=== PATIENT | female | born 1960 | race Caucasian/White ===

== ENCOUNTER 2023-10-26 06:35 | Inpatient (IN) ==
--- OUTSIDE RECORDS SUMMARY | 2023-10-26 06:41 | External Medical Summary ---
Author Name Unknown Address Unknown Organization [id number]:[facility] [place] [address] [place] [address] Laboratory Report Ordering Provider Test Date Status KELLY FERRIS 05/19/2023 07:25:00 Final Observation Date Value Abnormality Reference (Units ) Status BUN 05/19/2023 07:25:00 14 6-20 (mg/dL) Final Creatinine 05/19/2023 07:25:00 0.8 0.5-1.0 (mg/dL) Final Glomerular filtration rate/1.73 sq M.predicted [Volume Rate/Area] in Serum, Plasma or Blood by Creatinine-based formula (CKD-EPI) 05/19/2023 07:25:00 >90 >=60 (mL/min) Final eGFR is calculated based on the CKD-EPI 2020 equation SODIUM 05/19/2023 07:25:00 135 135-146 (m mol/L) Final Potassium 05/19/2023 07:25:00 3.6 3.5-5.1 (m mol/L) Final Cl 05/19/2023 07:25:00 103 98-107 (mm ol/L) Final CO2 05/19/2023 07:25:00 24 22-32 (mmo l/L) Final Anion gap 05/19/2023 07:25:00 8 7-15 (mmol /L) Final Glucose 05/19/2023 07:25:00 100 70-120 (mg /dL) Final Calcium 05/19/2023 07:25:00 9.0 8.4-10.2 ( mg/dL) Final Performing Location LABORATORY [facility] - [address] [place] [id number]
--- OUTSIDE RECORDS SUMMARY | 2023-10-26 06:41 | External Medical Summary ---
Author Name Unknown Address Unknown Organization [id number]:[facility] [place] [address] [facility] [address] Laboratory Report Ordering Provider Test Date Status KELLY FERRIS 05/20/2023 05:27:00 Final Observation Date Value Abnormality Reference (Units ) Status WBC, Total 05/20/2023 05:27:00 3.83 Below low normal 4.00-10.80 (K/uL) Final RBC 05/20/2023 05:27:00 3.76 3.85-5.15 (M/uL) Final Hemoglobin 05/20/2023 05:27:00 11.6 Below low normal 12.0-15.3 (g/dL) Final HCT 05/20/2023 05:27:00 34.9 Below low normal 36.0-45.2 (%) Final MCV 05/20/2023 05:27:00 92.8 81.5-97.5 (fL) Final MCH 05/20/2023 05:27:00 30.9 27.0-34.0 (pg) Final MCHC 05/20/2023 05:27:00 33.2 32.0-36.0 (g/dL) Final RDW 05/20/2023 05:27:00 13.5 11.5-15.5 (%) Final Platelets 05/20/2023 05:27:00 114 Below low normal 140-400 (K/uL) Final MPV 05/20/2023 05:27:00 9.4 6.6-11.1 (fL) Final Nucleated erythrocytes/100 leukocytes [Ratio] in Blood by Automated count 05/20/2023 05:27:00 0 <=0 (/100 WBCs) Final Performing Location LABORATORY C - [address] [place] [address]
--- OUTSIDE RECORDS SUMMARY | 2023-10-26 06:41 | External Medical Summary | Summary of Care ---
Author Name Unknown Organization [facility] Address [address] [place] [address] Phone [phone] Care Team Providers Care Component Assembler Supervisor Name Role Phone Caitie Aden Primary Care Provider [phone] Reason for Visit * Reason Comments Follow Up Encounter Details Date Type Department Care Team (Late st Contact Info) Description 10/09/2023 10:15 AM EDT Office Visit General Surgery, [place] [address] [place] [address] Horace Elder MD [address] [place] [address] Post-operative state* Allergies Active Allergy Reactions Criticality Noted Date Comments Acetaminophen Fever Extra Strength causes fever Moxifloxacin Hcl In Nacl Other (Please comment) 12/22/2009 Sunburn like rash Diphenhydramine-Zinc Acetate 08/23/2010 Skin like crowded with bugs Cefuroxime Axetil 09/15/2009 Does not remember, Ceftin Mesalamine 03/17/2018 Paroxetine 06/14/2010 Caused ringing in her ears Penicillins Rash Sertraline Hcl 08/23/2010 Intensified ringing in her ears Sulfa Antibiotics Severe Headache Sympathomimetics Antihistamines--j ittery Vancomycin 03/17/2018 Eye Lubricant 07/16/2022 Red eyes documented as of this encounter (statuses as of 10/25/2023) Medications Medication Sig Dispensed Refills Start Date End Date Status KLONOPIN 0.5 MG PO TABSIndications:Panic disorder one bid 60 5 03/25/2005 Active Additional Information Patient taking differently: 0.5 mgOralTID PRN, Anxiety, 1 tab AM, 1/2 tab afternoon, 1/2 tab HS, Informant: Patient, Reported on 05/13/2023 omeprazole (PRILOSEC) 20 MG CPDR 1 Capsule in the morning. Once-twice daily if needed . Active potassium citrate ER (UROCIT-K) 10 MEQ (1080 MG) TBCR Take by mouth 2 times a day. 30meq every morning & 20meq with dinner 1 06/29/2014 Active Carboxymethylcell-Hyp romellose 0.25-0.3 % Ophthalmic Gel Instill 1 Drop into both eyes as needed for Dry eyes (HS). Active Tobramycin-Dexamethas one (TOBRADEX ST) 0.3-0.05 % SUSP Instill into eye. Ac tive Cyanocobalamin 2000 MCG Oral Tablet Take by mouth daily. Active levothyroxine (LEVOXYL) 25 MCG Tablet Take 1 Tablet by mouth daily first thing in the morning. Active predniSONE (DELTASONE) 1 MG Tablet Take 2 Tablets by mouth in the morning. Active Docusate Sodium 100 MG Oral Capsule Take 2 Capsules by mouth in the morning. Active Acetaminophen 325 MG Oral Tablet (Tylenol) Take 2 Tablets by mouth every 6 hours as needed for Fever >38C(100.5F), Pain, Mild or Pain, Moderate. 30 Tablet 07/27/2022 Active Cranberry 250 MG Oral Tablet Take 1 Tablet by mouth in the morning. Active Vitamin D 50 MCG (2000 UT) Oral Capsule Take 2,000 Units by mouth in the morning. Active Ondansetron 4 MG Oral Tablet Disintegrating (Zofran) Place 1 Tablet on tongue every 6 hours as needed for Nausea or Vomiting. Let tablet dissolve on tongue. 20 Tablet 05/20/2023 Active Additional Information Patient not taking.Reported on 06/05/2023 Sennosides 8.6 MG Oral Tablet (Senokot) Take 2 Tablets by mouth daily as needed for Constipation. 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 Mammographic microcalcification 05/11/2003 Medullary sponge kidney 11/10/2002 Calculus of kidney 11/25/2001 Panic disorder 10/06/2001 Loss of weight 10/06/2001 Neutropenia 04/17/2001 Overview: ICD-10 update of inactive term Secondary thrombocytopenia 04/17/2001 Overview: ICD-10 update of inactive term Other specified visual disturbances 04/17/2001 Systemic lupus erythematosus 03/27/2001 Sicca syndrome LUMBAGO ACQUIRED HYPOTHYROID NEC documented as of this encounter (statuses as of 10/25/2023) Resolved Problems Problem Noted Date Diagnosed Date Resolved Date Anal fissure 02/08/2019 02/08/2019 documented as of this encounter (statuses as of 10/25/2023) Immunizations No known immunizationsdocumented as of this encounter Social History Tobacco Use Types Packs/Day Years Used Date Smoking Tobacco: Former Cigarettes 0.8 2 0 08/24/1979 - 08/23/1981 Smokeless Tobacco: Never Tobacco Cessation:Counseling Given: Not Answered Comments:after smoking x 2 yrs. Alcohol Use Standard Drinks/Week Comments No 0 (1 standard drink = 0.6 oz pur e alcohol) Sex and Gender Information Value Date Recorded Sex Assigned at Not on file Gender Identity Not on file Sexual Orientation Not on file Job Start Date Occupation Industry Not on file Not on file Not on file documented as of this encounter Last Filed Vital Signs Vital Sign Reading Time Taken Comments Blood Pressure 107/54 10/09/2023 10:21 AM EDT Pulse 76 10/09/2023 10:21 AM EDT Temperature 36.7 C (98 F) 10/09/2023 10: 21 AM EDT Respiratory Rate 20 10/09/2023 10:2 1 AM EDT Oxygen Saturation 98% 10/09/2023 10: 21 AM EDT Inhaled Oxygen Concentration - - Weight 64.8 kg (142 lb 12.8 oz) 024 10:21 AM EDT Height 180.3 cm (5' 11") 10/09/2023 10: 21 AM EDT Body Mass Index 19.92 10/09/2023 10:21 AM EDT documented in this encounter Functional Status Functional Status Response Date of Assess ment Are you deaf or do you have serious difficulty h earing? No 05/15/2023 Are you blind or do you have serious difficulty seeing, even when wearing glasses? No 05/15/2023 Do you have serious difficul ty walking or climbing stairs? (5 years old or older) No 05/15/2023 Do you have difficulty dress ing or bathing? (5 years old or older) No 05/15/2023 Because of a physical, menta l, or emotional condition, do you have difficulty doing errands alone such as visiting a doctor s office or shopping? (15 years old or older) No 05/15/19 Cognitive Status Response Date of Assessm ent Because of a physical, menta l, or emotional condition, do you have serious difficulty concentrating, remembering, or making decisions? (5 years old or older) No 05/15/2023 documented as of this encounter Progress Notes * Horace Elder MD - 10/25/2023 5:00 PM EDT Mrs. Lantigua is following up after a robotic sugarbaker repair of a parastomal hernia. She has some pain in her abdomen at times. Her ostomy is functioning. She will note parag occasional constipation. She denies any problems with pouching. She remains active. She is watching how much she lifts. VSS ABD- soft there is a LLQ ostomy no hernias noted. PLAN- will follow up in 4 months in clinic. Horace Elder MD documented in this encounter Plan of Treatment Upcoming Encounters Date Type Department Care Team (Late st Contact Info) Description 02/06/2024 10:00 AM EST Telemedicine General Surgery, [address] [phone] Horace Elder MD [address] [place] [address] Health Maintenance Due Date Last Done Comments Lipid Panel 1961 Depression Screening 1973 HIV Screening 1976 Hepatitis C Screening 11/25/1979 DTaP,Tdap,and Td Vaccines (1 - Tdap) 1980 HPV/Co-Test 11/25/1991 TSH 05/10/2004 05/11/2003, 08/2002, 03/18/2001, Additional history exists Mammogram 04/04/2006 04/04/2005, 03/04, 03/25/2005, Additional history exists Cologuard 2006 Fecal Occult Blood Test 2006 Sigmoidoscopy 2006 Cervical Cancer Screening 09/01/2007 Pap Smear 09/01/2007 08/31/2004, 03/2004, 09/07/2003, Additional history exists Zoster Vaccines (1 of 2) 11/25/2011 COVID-19 Vaccine ( - season) 2022 Influenza Vaccine (FLU shot) (#1) 2023 Colonoscopy 09/14/2030 09/14/2020, 08/31, 07/12/2019, Additional history exists Colorectal Cancer Screening 09/14/2030 HPV (Gardasil) Vaccine Aged Out No lo nger eligible based on patient's age to complete this topic Hepatitis B Vaccine Aged Out No longe r eligible based on patient's age to complete this topic MENINGOCOCCAL (MENACTRA/MENVEO) Aged Out No longer eligible based on patient's age to complete this topic Pneumococcal Vaccine: Pediatrics (0 to 5 Years) and At-Risk Patients (6 to 64 Years) Aged Out No longer eligible based on patient's age to complete this topic documented as of this encounter Medical Devices Implanted Type Area Quality Assurance Coach Device Identifier Shelf Expiration Date Model / Serial / Lot Patch Tissue 10x15 [id number] - [id number] Implanted:Qty : 1 on 05/15/2023 [place] [facility] [place] Abdomen [employer] [id number] 10/06/2027 [id number] / [id number] / [id number] Mesh Capsure Fixation 30 - [id number] Implanted:Qty : 1 on 05/15/2023 by Horace Elder [place] [facility] [place] BARD : DAVOL 05/28/2024 [id number] / / [id number] documented as of this encounter Visit Diagnoses Diagnosis Post-operative state- Primary Other postprocedural status documented in this encounter Advance Directives * Full Code (Latest Code Status on File) Date Activated Date Inactivated Comments 05/15/2023 5:31 PM 05/20/2023 7:08 PM Question Answer Comments Discussion of Advance Directives occurred with: Patient * Full Code Date Activated Date Inactivated Comments 05/15/2023 12:40 PM 05/15/2023 5:31 PM This order reflects the patients wishes and were consensually agreed upon. Question Answer Comments Discussion of Advance Directives occurred with: Patient Does the patient have a Living Will? No Does the patient have Health Care Power of Attor cony? No * Full Code Date Activated Date Inactivated Comments 12/13/2022 11:07 AM 12/14/2022 9:18 PM This orde r reflects the patients wishes and were consensually agreed upon. Question Answer Comments Discussion of Advance Directives occurred with: Patient * Full Code Date Activated Date Inactivated Comments 07/25/2022 2:31 PM 07/27/2022 4:36 PM This order r eflects the patients wishes and were consensually agreed upon. Question Answer Comments Discussion of Advance Directives occurred with: Patient Does the patient have a Living Will? No Does the patient have Health Care Power of Attor cony? No * Full Code Date Activated Date Inactivated Comments 01/15/2022 12:37 PM 01/15/2022 7:56 PM This orde r reflects the patients wishes and were consensually agreed upon. Question Answer Comments Discussion of Advance Direct karina occurred with: Not Discussed due to patient's condition Care Teams Component Assembler Supervisor Relationship Specialty Start Date End Date Caitie Aden DO [address] [place] [id number] PCP - General 09/12/09 documented as of this encounter
--- OUTSIDE RECORDS SUMMARY | 2023-10-26 06:41 | External Medical Summary | Summary of Care ---
Author Name Unknown Organization [facility] Address [address] [place] [address] Phone [phone] Care Team Providers Care C 13 Catapult Operator Name Role Phone Caitie Aden Primary Care Provider [phone] Reason for Visit * Reason Comments Post-Op Encounter Details Date Type Department Care Team (Late st Contact Info) Description 06/05/2023 11:00 AM EDT Office Visit General Surgery, [place] [address] [place] [address] Horace Elder MD [address] [place] [address] Post-operative state* Allergies Active Allergy [...] as of this encounter (statuses as of 06/05/2023) Medications Medication Sig Dispensed Refills Start Date End Date Status KLONOPIN 0.5 MG PO TABSIndications:Felipe c disorder one bid 60 5 03/25/2005 Active Additional Information Patient taking differently: 0.5 mgOralTID PRN, Anxiety, 1 tab AM, 1/2 tab afternoon, 1/2 tab HS, Informant: Patient, Reported on 05/13/2023 omeprazole (PRILOSEC) 20 MG CPDR 1 Capsule in the morning. Once-twice daily if needed . 0 Active potassium citrate ER (UROCIT-K) 10 MEQ (1080 MG) TBCR Take by mouth 2 times a day. 30meq every morning & 20meq with dinner 1 06/29/2014 Active Carboxymethylcell-Hy promellose 0.25-0.3 % Ophthalmic Gel Instill 1 Drop into both eyes as needed for Dry eyes (HS). 0 Active Tobramycin-Dexametha sone (TOBRADEX ST) 0.3-0.05 % SUSP Instill into eye. 0 Ac tive Cyanocobalamin 2000 MCG Oral Tablet Take by mouth daily. 0 Active levothyroxine (LEVOXYL) 25 MCG Tablet Take 1 Tablet by mouth daily first thing in the morning. 0 Active predniSONE (DELTASONE) 1 MG Tablet Take 2 Tablets by mouth in the morning. 0 Active Docusate Sodium 100 MG Oral Capsule Take 2 Capsules by mouth in the morning. 0 Active Acetaminophen 325 MG Oral Tablet (Tylenol) Take 2 Tablets by mouth every 6 hours as needed for Fever >38C(100.5F), Pain, Mild or Pain, Moderate. 30 Tablet 0 07/27/2022 Active Cranberry 250 MG Oral Tablet Take 1 Tablet by mouth in the morning. 0 Active Vitamin D 50 MCG (2000 UT) Oral Capsule Take 2,000 Units by mouth in the morning. 0 Active Ondansetron 4 MG Oral Tablet Disintegrating (Zofran) Place 1 Tablet on tongue every 6 hours as needed for Nausea or Vomiting. Let tablet dissolve on tongue. 20 Tablet 0 05/20/2023 Active Additional Information Patient not taking.Reported on 06/05/2023 Sennosides 8.6 MG Oral Tablet (Senokot) Take 2 Tablets by mouth daily as needed for Constipation. 30 Tablet 0 05/20/2023 Active Additional Information Patient not taking.Reported on 06/05/2023 oxyCODONE HCl 10 MG Oral Tablet (Roxicodone) Take 1 Tablet by mouth every 6 hours as needed for severe pain 16 Tablet 0 05/20/2023 Active Ciprofloxacin HCl 500 MG Oral Tablet (Cipro) Take 1 Tablet by mouth two times per day (morning & before bedtime). 58 Tablet 0 05/20/2023 06/18/2023 Active Additional Information Patient not taking.Reported on 06/05/2023 documented as of this encounter (statuses as of 06/05/2023) Active Problems Problem Noted Date Diagnosed Date [...] as of this encounter (statuses as of 06/05/2023) Resolved Problems Problem Noted Date Diagnosed Date Resolved Date Anal fissure 02/08/2019 02/08/2019 documented as of this encounter (statuses as of 06/05/2023) Immunizations No known immunizationsdocumented as of this encounter Social History Tobacco Use Types Packs/Day Years Used Date Smoking Tobacco: Former Cigarettes 0.8 2 0 08/24/1979 - 08/23/1981 Smokeless Tobacco: Never Comments:after smoking x 2 y rs. Alcohol Use Standard Drinks/Week Comments No 0 [...] Sign Reading Time Taken Comments Blood Pressure 99/51 06/05/2023 10:54 AM EDT Pulse 97 06/05/2023 10:54 AM EDT Temperature 36.8 C (98.2 F) 06/05/2023 10:54 AM E DT Respiratory Rate - - Oxygen Saturation 99% 06/05/2023 10:54 AM EDT Inhaled Oxygen Concentration - - Weight 62 kg (136 lb 9.6 oz) 06/05/2023 10:54 AM EDT Height 180.3 cm (5' 11") 06/05/2023 10:54 AM EDT Body Mass Index 19.05 06/05/2023 10:54 AM EDT documented in this encounter Functional [...] Progress Notes * Horace Elder MD - 06/05/2023 6:48 PM EDT Gilma Lantigua is a 62 year old female who recently had a robotic Sugarbaker repair of a parastomalhernia. Her ostomy is functioning well. She has some pain at her left abdomen. She is tolerating a diet. No nausea. . Physical Examination: incisions are healing well. No erythema. Ostomy is pink and functioning well. Impression: s/p robotic Sugarbaker repair. Plan: will follow up in 4 weeks via a phone call. Horace Elder MD 06/05/2023 6:49 PM documented in this encounter Plan of Treatment Upcoming Encounters Date Type Department Care Team (Late st Contact Info) Description 07/04/2023 9:00 AM EDT Telemedicine General Surgery, [place] [address] [place] [address] Horace Elder MD [address] [place] [address] Health Maintenance Due Date Last Done Comments [...] of 2) 11/25/2011 COVID-19 Vaccine ( - 2022- season) 2022 Influenza Vaccine (FLU shot) (Season Ended) 2023 Colonoscopy 09/14/2030 09/14/2020, 08/31, 07/12/2019, Additional history exists Colorectal Cancer Screening 09/14/2030 GARDASIL-HPV IMMUNIZATION SERIES Aged Out No longer eligible based on patient's age to complete this topic Hepatitis B Aged Out No longer eligi ble based on patient's age to complete this topic MENINGOCOCCAL (MENACTRA/MENVEO) Aged Out No longer eligible based on patient's age to complete this topic Pneumococcal Vaccine: Pediatrics (0 to 5 Years) and At-Risk Patients (6 to 64 Years) Aged Out No longer eligible based on patient's age to complete this topic documented as of this encounter Medical Devices Implanted Type Area Remedial Project Manager Device Identifier Shelf Expiration Date Model / Serial / Lot Patch Tissue 10x15 [id number] - [id number] Implanted:Qty : 1 on 05/15/2023 by Horace Elder MD at [place] [facility] [place] N/A: Abdomen [employer] [id number] 10/06/2027 [id number] / [id number] / [id number] Mesh Capsure Fixation 30 - [id number] Implanted:Qty : 1 on 05/15/2023 by Horace Elder MD at [place] [facility] [place] CR BARD : DAVOL 05/28/2024 [id number] / / [id number] documented as of this encounter Visit Diagnoses Diagnosis Post-operative state- Primary Other postprocedural status documented in this encounter Advance Directives Latest Code Status on File Code Status Date Activated Date Inactivated Comments Full Code 05/15/2023 5:31 PM 05/20/2023 7:08 PM Question Answer Comments Discussion of Advance Direct karina occurred with: Patient Code Status History Code Status Date Activated Date Inactivated Comments Full Code 05/15/2023 12:40 PM 05/15/2023 5:31 PM This order reflects the patients wishes and were consensually agreed upon. Question Answer Comments Discussion of Advance Directives occurred with: Patient Does the patient have a Living Will? No Does the patient have Health Care Power of Vendor Representatives? No Full Code 12/13/2022 11:07 AM 12/14/2022 9:18 PM Th is order reflects the patients wishes and were consensually agreed upon. Question Answer Comments Discussion of Advance Directives occurred with: Patient Full Code 07/25/2022 2:31 PM 07/27/2022 4:36 PM This order reflects the patients wishes and were consensually agreed upon. Question Answer Comments Discussion of Advance Directives occurred with: Patient Does the patient have a Living Will? No Does the patient have Health Care Power of Vendor Representatives? No Full Code 01/15/2022 12:37 PM 01/15/2022 7:56 PM Th is order reflects the patients wishes and were consensually agreed upon. Question Answer Comments Discussion of Advance Directives occurred with: Not Discussed due to patient's condition Care Teams C 13 Catapult Operator Relationship Specialty Start Date End Date Caitie Aden DO [address] [place] [id number] PCP - General 09/12/09 documented as of this encounter
--- OUTSIDE RECORDS SUMMARY | 2023-10-26 06:41 | External Medical Summary | Summary of Care ---
Author Name Unknown Organization [facility] Address [address] [place] [address] Phone [phone] Care Team Providers Care Utility Bag Assembler Name Role Phone Caitie Aden Primary Care Provider [phone] Encounter Details Date Type Department Care Team (Late st Contact Info) Description 03/12/2023 Telephone General Surgery, [facility] [address] [place] [address] Shiela Baez [facility], [facility] [address] [place] [address] Allergies Active Allergy Reactions Criticality Noted Date [...] as of this encounter (statuses as of 06/11/2023) Medications Medication Sig Dispensed Refills Start Date End Date Status KLONOPIN 0.5 MG PO TABSIndications: Panic disorder one bid 60 5 03/25/2005 Active [...] & 20meq with dinner 1 06/29/2014 Active Carboxymethylcel l-Hypromellose 0.25-0.3 % Ophthalmic Gel Instill 1 Drop into both eyes as needed for Dry eyes (HS). 0 Active Tobramycin-Dexam ethasone (TOBRADEX ST) 0.3-0.05 % SUSP Instill into [...] Pain, Moderate. 30 Tablet 0 07/27/2022 Active Cranberry-Vitami n C 250-60 MG Oral Capsule Take 1 Tab by mouth daily. 0 05/13/2023 Discontinue d(Patient preference/ discontinua tion) Fiber Select Gummies Oral Tablet Chewable Take 1 Tablet by mouth in the morning. 0 04/10/2023 Discontinue d(Patient preference/ discontinua tion) Sennosides-Docus ate Sodium 8.6-50 MG Oral Tablet Take 1 Tablet by mouth in the morning. Take every 2-3 days if no bm. 0 04/10/2023 Discontinue d(Patient preference/ discontinua tion) documented as of this encounter (statuses as of 06/11/2023) Active Problems Problem Noted Date Diagnosed Date [...] as of this encounter (statuses as of 06/11/2023) Resolved Problems Problem Noted Date Diagnosed Date Resolved Date Anal fissure 02/08/2019 02/08/2019 documented as of this encounter (statuses as of 06/11/2023) Immunizations No known immunizationsdocumented as of this [...] on file documented as of this encounter Functional Status Functional Status Response Date of Assess ment Are you deaf or do you have serious difficulty h earing? No 07/25/2022 Are you blind or do you have serious difficulty seeing, even when wearing glasses? No 07/25/2022 Do you have serious difficul ty walking or climbing stairs? (5 years old or older) No 12/13/2022 Do you have difficulty dress ing or bathing? (5 years old or older) No 07/25/2022 Because of a physical, menta l, or emotional condition, do you have difficulty doing errands alone such as visiting a doctor s office or shopping? (15 years old or older) No 07/26/19 Cognitive Status Response Date of Assessm ent Because of a physical, menta l, or emotional condition, do you have serious difficulty concentrating, remembering, or making decisions? (5 years old or older) No 07/25/2022 documented as of this encounter Miscellaneous Notes * Telephone Encounter - Shiela Baez LPN - 03/12/2023 1:56 PM EST Patient calling in to report that she feels a bulge on her left side beside her stoma and "it feelsheavy". When laying down the bulge goes away. documented in this encounter Plan of Treatment Upcoming Encounters Date Type Department Care Team (Late st Contact Info) Description 07/04/2023 9:00 AM EDT Telemedicine General Surgery, [facility] [address] [place] [address] Horace Elder MD [address] [place] [address] Health Maintenance Due Date Last Done Comments Lipid Panel 1961 Depression Screening 1973 HIV Screening 1976 Hepatitis C Screening 11/25/1979 DTaP,Tdap,and Td Vaccines (1 - Tdap) 1980 HPV/Co-Test 11/25/1991 TSH 05/10/2004 05/11/2003, 08/2002, 03/18/2001, Additional history exists Mammogram 04/04/2006 04/04/2005, 03/04, 03/25/2005, Additional history exists Cologuard 2006 Fecal Occult Blood Test 2006 Sigmoidoscopy 2006 Cervical Cancer Screening 09/01/2007 Pap Smear 09/01/2007 08/31/2004, 07/03/2004, 09/07/2003, Additional history exists Zoster Vaccines (1 of 2) 11/25/2011 COVID-19 Vaccine ( - season) 2022 Influenza Vaccine (FLU shot) (Season [...] this encounter Medical Devices Implanted Type Area Motor Operator Device Identifier Shelf Expiration Date Model / Serial / Lot Patch Tissue 10x15 [id number] - [id number] Implanted:Qty : 1 on 05/15/2023 by Horace Elder MD at [place] [facility] [place] N/A: Abdomen [employer] [id number] 10/06/2027 [id number] / [id number] / [id number] Mesh Capsure Fixation 30 - [id number] Implanted:Qty : 1 on 05/15/2023 by Horace Elder MD at [facility] [place] CR BARD : DAVOL 05/28/2024 [id number] / / [id number] documented as of this encounter Advance Directives Latest Code Status [...] the patient have Health Care Power of Strategic Insights Lead? No Full Code 12/13/2022 11:07 AM 12/14/2022 [...] the patient have Health Care Power of Strategic Insights Lead? No Full Code 01/15/2022 12:37 PM 01/15/2022 7:56 PM Th is order reflects the patients wishes and were consensually agreed upon. Question Answer Comments Discussion of Advance Directives occurred with: Not Discussed due to patient's condition Care Teams Utility Bag Assembler Relationship Specialty Start Date End Date Caitie Aden DO [address] [place] [id number] PCP - General 09/12/09 documented as of this encounter
--- OUTSIDE RECORDS SUMMARY | 2023-10-26 06:41 | External Medical Summary | Summary of Care ---
Author Name Unknown Organization [facility] Address [address] [place] [address] Phone [phone] Care Team Providers Care Straddle Bug Operator Name Role Phone Caitie Aden Primary Care Provider [phone] Reason for Visit * Reason Comments Follow Up Encounter Details Date Type Department Care Team (Late st Contact Info) Description 07/04/2023 9:00 AM EDT [facility] [address] [place] [address] Horace Elder MD [address] [place] [address] Post-operative state* Allergies Active Allergy [...] as of this encounter (statuses as of 07/04/2023) Medications Medication Sig Dispensed Refills Start Date [...] needed for Dry eyes (HS). 0 Active Tobramycin-Dexamethas one (TOBRADEX ST) 0.3-0.05 % [...] severe pain 16 Tablet 0 05/20/2023 Active documented as of this encounter (statuses as of 07/04/2023) Active Problems Problem Noted Date Diagnosed Date [...] as of this encounter (statuses as of 07/04/2023) Resolved Problems Problem Noted Date Diagnosed Date Resolved Date Anal fissure 02/08/2019 02/08/2019 documented as of this encounter (statuses as of 07/04/2023) Immunizations No known immunizationsdocumented as of this [...] Progress Notes * Horace Elder MD - 07/04/2023 8:25 AM EDT After connecting to the patient via telephone, the patient was identified by name and date of . Patient was then informed that this was a telephone call only visit. The patient agreed to participate. Visit Disposition: Routine follow-up Total call duration was 5 minutes. Patient is s/p robotic [employer] repair of a parastomal hernia. Some pain at the ostomy if she does not have any output at night. She has put on a little weight. Stoma is raised a little. Pouching is going well. PLAN- follow up in months. Horace Elder MD documented in this encounter Plan of Treatment Health Maintenance Due Date Last Done Comments [...] (1 of 2) 11/25/2011 COVID-19 Vaccine ( season) 2022 Influenza Vaccine (FLU shot) (Season [...] this encounter Medical Devices Implanted Type Area Senior Support Engineer Device Identifier Shelf Expiration Date Model / Serial / Lot Patch Tissue 10x15 [id number] - [id number] Implanted:Qty : 1 on 05/15/2023 [place] [facility] [place]A: Abdomen [employer] [id number] 10/06/2027 [id number] / [id number] / [id number] Mesh Capsure Fixation 30 - [id number] Implanted:Qty : 1 on 05/15/2023 by Horace Elder MD at [facility] CR BARD : DAVOL 05/28/2024 [id number] / / [id number] documented as of this encounter Visit Diagnoses [...] the patient have Health Care Power of Supervisor Filling And Packing? No Full Code 12/13/2022 11:07 AM 12/14/2022 [...] the patient have Health Care Power of Supervisor Filling And Packing? No Full Code 01/15/2022 12:37 PM 01/15/2022 7:56 PM Th is order reflects the patients wishes and were consensually agreed upon. Question Answer Comments Discussion of Advance Directives occurred with: Not Discussed due to patient's condition Care Teams Straddle Bug Operator Relationship Specialty Start Date End Date Caitie Aden DO [address] [place] [address], [place] [address] PCP - General 09/12/09 documented as of this encounter
--- OUTSIDE RECORDS SUMMARY | 2023-10-26 06:41 | External Medical Summary | Summary of Care ---
Author Name Unknown Organization [facility] Address [address] [place] [address] Phone [phone] Care Team Providers Care Tube Carrier Name Role Phone Caitie Aden DO Primary Care Provider [phone] Reason for Visit * Auth/Cert Specialty Diagnoses / Procedures Referred By Stevie solomon Referred To Contact Diagnoses Parastomal hernia without obstruction or gangrene Parastomal hernia without obstruction or gangrene [K43.5] Procedures RPR AA HERNIA RECR 3-10 CM REDUCIBLE ROBOTIC INCISIONAL/VENTRAL/UMBILICAL HERNIA REPAIR RECURRENT 3-10 CM REDUCIBLE Referral ID Status Reason Start Date Expiration Date Visits Re quested Visits Authorized [id number] Encounter Details Date Type Department Care Team (Latest Contact Info) Description 05/15/2023 11:21 AM EDT - 05/20/2023 3:03 PM EDT Hospital Encounter [id number] [address], [place] [id number] Horace Elder MD [address] [place], [place] [id number] Discharge Disposition: Home - Self Care Allergies Active Allergy Reactions Criticality Noted Date [...] her ears Sulfa Antibiotics Severe Headache Sympathomimetics Antihistamines--nohemy kumar Vancomycin 03/17/2018 Eye Lubricant 07/16/2022 Red eyes documented as of this encounter (statuses as of 05/21/2023) Medications Medication Sig Dispensed Refills Start Date End Date Status KLONOPIN 0.5 MG PO TABSIndications:Lucio adeline disorder one bid 60 5 6 Active Additional Information Patient taking differently: 0.5 [...] every morning & 20meq with dinner 1 5 Active Carboxymethylcell- Hypromellose 0.25-0.3 % Ophthalmic Gel Instill 1 Drop into both eyes as needed for Dry eyes (HS). 0 Active Tobramycin-Dexamet hasone (TOBRADEX ST) 0.3-0.05 % SUSP Instill into eye. 0 Active Cyanocobalamin 2000 MCG Oral Tablet Take by [...] Mild or Pain, Moderate. 30 Tablet 0 3 Active Cranberry 250 MG Oral Tablet Take 1 Tablet by mouth in the morning. 0 Active Vitamin D 50 MCG (2000 UT) Oral Capsule Take 2,000 Units by mouth in the morning. 0 Active Ondansetron 4 MG Oral Tablet Disintegrating (Zofran) Place 1 Tablet on tongue every 6 hours as needed for Nausea or Vomiting. Let tablet dissolve on tongue. 20 Tablet 0 4 Active Sennosides 8.6 MG Oral Tablet (Senokot) Take 2 Tablets by mouth daily as needed for Constipation. 30 Tablet 0 4 Active oxyCODONE HCl 10 MG Oral Tablet (Roxicodone) Take 1 Tablet by mouth every 6 hours as needed for severe pain 16 Tablet 0 4 Active Ciprofloxacin HCl 500 MG Oral Tablet (Cipro) Take 1 Tablet by mouth two times per day (morning & before bedtime). 58 Tablet 0 4 06/18/19 24 Active Cranberry-Vitamin C 250-60 MG Oral Capsule Take 1 Tab by mouth daily. 0 05/13/19 24 Discontinued(Pa tient preference/disc ontinuation) oxyCODONE HCl 5 MG Oral Tablet Abuse-Deterrent Take 5 mg by mouth every 4 hours as needed for Pain, Breakthrough. 0 05/20/19 24 Discontinued documented as of this encounter (statuses as of 05/21/2023) Active Problems Problem Noted Date Diagnosed Date [...] as of this encounter (statuses as of 05/21/2023) Resolved Problems Problem Noted Date Diagnosed Date Resolved Date Anal fissure 02/08/2019 02/08/2019 documented as of this encounter (statuses as of 05/21/2023) Immunizations No known immunizationsdocumented as of this [...] Sign Reading Time Taken Comments Blood Pressure 105/50 05/20/2023 11:57 AM EDT Pulse 78 05/20/2023 11:57 AM EDT Temperature 36.6 C (97.9 F) 05/20/2023 1 1:57 AM EDT Respiratory Rate 16 05/20/2023 11:5 7 AM EDT Oxygen Saturation 100% 05/20/2023 11: 57 AM EDT Inhaled Oxygen Concentration - - Weight 63.8 kg (140 lb 11.2 oz) 024 11:15 AM EDT Height 180.3 cm (5' 11") 05/16/2023 5:51 AM EDT Body Mass Index 19.62 05/15/2023 11:15 AM EDT documented in this encounter Functional [...] (15 years old or older) No 05/15/19 24 Cognitive Status Response Date of Assessm ent Because of a physical, menta l, or emotional condition, do you have serious difficulty concentrating, remembering, or making decisions? (5 years old or older) No 05/15/2023 documented as of this encounter Discharge Instructions * Discharge Instr - AVS* Valerie Humphreys CRNP - 05/15/2023 2:42 PM EDT Discharge Date: 05/20/2023 You may call Doctor Jael of the department of General Surgery at [phone] during business hours for any questions or test results. For after-hours emergencies call [phone] and have your doctor paged. The information below provides you with the instructions and the list of medications you need to betaking following discharge from the hospital. If you have any questions, please ask before leaving.Please carry this letter with you when you see your doctor in the clinic. If you have questions, you can reach us at the numbers above. Brief summary of your inpatient care: You were admitted to [facility] on 05/15/2023 for surgery, you tolerated the procedure, your pain was well controlled and you are being discharged home after tolerating a diet and ambulating in the bautista. Your primary diagnosis at discharge was parastomal hernia Your doctors during this hospitalization included: - (General Surgery) Inpatient test results pending: None Operations & Procedures: Robotic Sugarbaker Complications: none significant Advance Directive Documented: Advance Directive Does the Patient have an Advance Directive? No Diet: normal diet Activity: No strenuous activity for 4 weeks No lifting or pushing or pulling more than 10 lbs for 6 weeks Getting up and walking after surgery aids recovery in many ways. Much of the pain after major surgery is from muscle spasm. Getting out of bed, sitting and walking help you loosen up and actually reduce your pain. This also helps your breathing and quickens the recovery of your bowel function. Walking and using the stairs is permitted. You should try to get lots of rest. You should avoid full activity and vigorous exercise for about six to eight weeks after surgery. No deep bending or twisting for 4-6 weeks Driving: Don't drive until you are off narcotics for one full week and can walk normally and firmlyapply the brake without pain. Pain control You may take Acetaminophen 500-1000mg every 6 hours as needed for mild to moderate pain- do NOT take more than 4,000mg in a 24 hour time period and do not take any other medications that have acetaminophen in them such as Vicodin, Percocet or over the counter medications. You may take Ibuprofen 600mg (1 tab of 600mg) every 6 hours (take with food) You may take Oxycodone 10mg every 6-8 hours as needed for severe pain not controlled by Acetaminophen or Ibuprofen. Resume your prior to admission pain medication in 5-7 days post-op. - These medications can cause constipation. You should take a stool softener while using these medications to prevent constipation and use a laxative if you develop constipation. If this should occur, over the counter stool softeners or laxatives should be used. Docusate, Senna, and milk of magnesia will all work. - You should appropriately dispose of any remaining narcotic pain medication that you have not used. Some pharmacies have mail-back programs and disposal kiosks for unused medicines. Date you may return to work or school: Based on further instruction reviewed by surgeon after follow up visit. See your primary care physician (Caitie Aden DO) per PCP Special Instructions: Call the Surgery office at [phone] if you have any questions or concerns or if you experience any of the following: - Elevated temperatures of 101.5 degrees or greater - Persistent nausea and vomiting - Pus-like drainage or redness around the incision or wound - Pain that is not controlled with prescribed medications Follow up with Dr. Elder in 06/05/2023. - Breathing exercises: These are extremely important. You should do these every hour during waking hours, taking at least ten deep breaths. This expands the small air sacs in the lungs and minimizes postoperative fever and pneumonia. Use your incentive spirometry 10 times/hour when you are awake. Additional Instructions: - Take a stool softener while taking narcotic pain medication; hold for loose stools. - May shower, but do not scrub vigorously over the incisions. - DERMABOND surgical adhesive covers your incision. This will begin to fall off in about 2 weeks.Do not pick at the wound. Do NOT apply any ointment or lotion to the incision. - Finish your antibiotics as prescribed. documented in this encounter Progress Notes * Alessandro Glaser RN - 05/20/2023 12:40 PM EDT Seen for colostomy care Awake, alert, sitting up in bed. at bedside Possible d/c to home today. Not eating much Pouching changed to colostomy L abd stoma 1 1/2" red, round, raised with dip in skin at 3 o'clock, otherwise skin intact. Repouched with [place] 2 3/4" cut to fit wafer/pouch Instructed on use of Glenda to fill in skin dip if she has trouble with leaking. Verbalized understanding Has additional supplies at home. 2 1/4" and 2 3/4" wafer/pouches Has [facility] contact number to call w/pouching questions * Alessandro Glaser RN - 05/19/2023 11:10 AM EDT Seen for colostomy care OOB in chair, at the bedside Complains of abd discomfort/vomiting this am No plans for d/c to home Colostomy L abd pink, raised with scant stool in pouching Currently pouched with Yuridia 2 3/4" cut to fit wafer/pouch Has supplies at bedside and at home Will plan for pouch change tomorrow documented in this encounter H&P Notes * Yaron Davis MD - 05/15/2023 1:15 PM EDT HISTORY AND PHYSICAL EXAMINATION - General Surgery [facility]-[address] [id number] Name: Gilma Lantigua Location: [facility] 05 Date: 05/15/2023 Time: 1:10 PM HISTORY OF PRESENT ILLNESS: Gilma Lantigua is a 62 year old, female with hx below. No acute changes since clinic. Denies fever,s chills, CP, SOB, n/v. Still having ostomy function. History of Present Illness 04/10/23: 62F with prior history of anal cancer with severe radiation proctitis status post laparoscopic handassisted LAR with coloproctostomy and diverting loop ileostomy 06/23/2018, Ileostomy closure 09/21/2018, development of anal fissure, diverting transverse loop colostomy 07/25/2022 and subsequent takedown of colostomy with partial colectomy and creation of end colostomy on 12/13/2022 for prolapsed stoma. Patient was last seen by Dr. Mcnulty 03/26 where she was noted to have swelling around ostomy site and scan obtained 04/02 demonstrated minimal parastomal fat herniation. Patient states that she has noted that her stoma has continued to increase in size, prolapse reduces when she lays supine. Similarly she has noted an abdominal bulge that worsens when seated and improves when supine. Denies nausea, is tolerating diet well and has successfully gained some weight back. Denies change in ostomy function. Is having some pain of the area surrounding the ostomy and notes that she tried ostomy support belt that seemed to make symptoms worse. HOSPITAL PROBLEM LIST: Principal Problem: Parastomal hernia without obstruction or gangrene (POA: Unknown) POA = Present On Admission PAST MEDICAL HISTORY: Past Medical History: Diagnosis Date Anemia Calculus of kidney 11/02 multiple - calcium Diffuse cystic mastopathy Esophageal reflux Loss of weight Lumbago chronic Mammographic microcalcification Medullary sponge kidney Monoclonal paraproteinemia Neutropenia Other specified acquired hypothyroidism 04/03 Other specified visual disturbances Panic disorder Raynaud's syndrome 12/22/2009 Secondary thrombocytopenia Sialoadenitis Sicca syndrome (HCC) Sjogrens syndrome (HCC) Systemic lupus erythematosus (HCC) PAST SURGICAL HISTORY: Past Surgical History: Procedure Laterality Date ANORECTAL EXAM ,DIAG, REQUIRING ANESTHESIA N/A 02/08/2019 ANORECTAL EXAM UNDER ANESTHESIA performed by Lexx Mcnulty, at OR [facility] BLADDER CATH INSERTION,TEMP INDWELL, SIMPLE N/A 06/23/2018 INSERTION TEMPORARY INDWELLING CATHETER SIMPLE performed by Jama Rosado MD at OR [facility] BONE MARROW BIOPSY 2004 CHEMODENERVATION INTERNAL ANAL SPHINCTER N/A 02/08/2019 CHEMODENERVATION INTERNAL ANAL SPHINCTER performed by Lexx Mcnulty DO at OR [facility] COLONOSCOPY, DIAGNOSTIC (RECTUM) N/A 11/21/2015 COLONOSCOPY FLEXIBLE PROXIMAL DIAGNOSTIC performed by Lexx Mcnulty DO at [facility] COLONOSCOPY, DIAGNOSTIC (RECTUM) N/A 07/12/2019 COLONOSCOPY FLEXIBLE PROXIMAL DIAGNOSTIC performed by Lexx Mcnulty DO at OR [facility] COLONOSCOPY, DIAGNOSTIC (RECTUM) N/A 09/14/2020 COLONOSCOPY FLEXIBLE PROXIMAL DIAGNOSTIC performed by Lexx Mcnulty DO at OR [facility] COLONOSCOPY, SURGICAL 2010 COLOSTOMY OR CECOSTOMY, LAPAROSCOPIC N/A 07/25/2022 LAPAROSCOPIC COLOSTOMY OR CECOSTOMY performed by Lexx Mcnulty DO at OR [facility] CYSTOSCOPY/INSERTION OF STENT Bilateral 06/23/2018 CYSTOURETHROSCOPY WITH INSERTION URETERAL STENT performed by Jama Rosado MD at [facility] CYSTOSCOPY/URETERAL CATHETER Bilateral 06/23/2018 CYSTOURETHROSCOPY WITH URETERAL CATHETER performed by Jama Rosado MD at OR [facility] DILATION AND CURETTAGE (D&C) 1986 ESOPHAGOSCOPY, FLEXIBLE, WITH BIOPSY 2010 FLUORO PYELOGRAM RETROGRADE Bilateral 06/23/2018 UROGRAHY, RETROGRADE, WITH OR WITHOUT KUB performed by Jama Rosado MD at OR [facility] FRAGMENT KIDNEY STONE BY SHOCK WAVE 2010 multiple LAPAROSCOPIC PARTIAL COLECTOMY W/COLOPROCTOSTOMY Left 06/23/2018 LAPAROSCOPIC PARTIAL COLECTOMY WITH COLOPROCTOSTOMY performed by Lexx Mcnulty DO at OR [facility] LIGATE/CUT OVIDUCT(S) REMOVE TONSILS & ADENOIDS, AGE 12+ 1982 REMOVE WRIST TENDON SHEATH Right 01/15/2022 SYNOVECTOMY EXTENSOR TENDON SHEATH WRIST SINGLE performed by Chandra Rutherford MD at OR [facility] REPAIR BOWEL OPENING N/A 09/21/2018 CLOSURE ENTEROSTOMY performed by Lexx Mcnulty DO at OR [facility] REVISION OF COLOSTOMY/HERNIA REPAIR N/A 12/13/2022 REVISION OF COLOSTOMY WITH REPAIR PARACOLOSTOMY HERNIA performed by Lexx Mcnulty DO at [facility] THIGH/KNEE SUBQ TUMOR RESECTION,3CM OR MORE Right 01/15/2022 EXCISION, TUMOR, SOFT TISSUE OF THIGH OR KNEE AREA, SUBCUTANEIOUS; 3 CM OR GREATER performed by Chandra Rutherford MD at OR [facility] FAMILY HISTORY: Family History Problem Relation Age of Onset Cancer Father 50 pancreatic, Cancer Grandmother (Paternal) in her chest Diabetes Father Heart Disorder Grandmother (Maternal) Stroke Grandfather (Paternal) Other (Other) Sister autoimmune problems Other (Other) Sister autoimmune problems Other (Other) Brother autoimmune problems Diabetes Mother borderline SOCIAL HISTORY: Social History Tobacco Use Smoking status: Former Current packs/day: 0.00 Average packs/day: 0.8 packs/day for 2.0 years (1.5 ttl pk-yrs) Types: Cigarettes Start date: 08/24/1979 Quit date: 08/23/1981 Years since quittin.7 Smokeless tobacco: Never Tobacco comments: after smoking x 2 yrs. Vaping Use Vaping Use: Never used Substance Use Topics Alcohol use: No Drug use: No CURRENT HOSPITAL MEDICATIONS: Note that completed medications (per the MAR) continue to display for 24 hours. Ordered medicationsto be given in the future also display. No current facility-administered medications for this encounter. Current Outpatient Medications Medication Cranberry 250 MG Oral Tablet oxyCODONE HCl 5 MG Oral Tablet Abuse-Deterrent Vitamin D 50 MCG (2000 UT) Oral Capsule Acetaminophen 325 MG Oral Tablet (Tylenol) Docusate Sodium 100 MG Oral Capsule levothyroxine (LEVOXYL) 25 MCG Tablet predniSONE (DELTASONE) 1 MG Tablet Carboxymethylcell-Hypromellose 0.25-0.3 % Ophthalmic Gel omeprazole (PRILOSEC) 20 MG CPDR potassium citrate ER (UROCIT-K) 10 MEQ (1080 MG) TBCR KLONOPIN 0.5 MG PO TABS Cyanocobalamin 2000 MCG Oral Tablet Tobramycin-Dexamethasone (TOBRADEX ST) 0.3-0.05 % SUSP ALLERGIES: Acetaminophen, Avelox [moxifloxacin hcl in nacl], Benadryl [diphenhydramine-zinc acetate], Cefuroxime axetil, Mesalamine, Paxil [paroxetine], Penicillins, Sertraline hcl, Sulfa antibiotics, Sympathomimetics, Vancomycin, and White petrolatum-mineral oil [eye lubricant] ROS: Ros negative unless specified above PHYSICAL EXAMINATION: Most Recent Vital Signs: BP: / Pulse: Temp: Temp Summary: No data recorded SpO2: O2 flow rate: Supplemental O2 Delivery: Gen: no acute distress Neck: supple CV: RRR, Chest: nonlabored breathing Abdomen: soft, nontender, nondistended, ostomy pink, parastomal herni Neuro: AOX3 Extremities: warm, well perfused, no pitting edema LABS: Labs reviewed as indicated below: BMP No results in the last 7 days - inpatent use only CBC No results in the last 7 days - inpatent use only HEPATIC PANEL No results in the last 7 days - inpatent use only TROPONIN No results in the last 7 days - inpatent use only LACTIC ACID No results in the last 7 days - inpatent use only IMAGING: EXAM: CT ABD/PELVIS W IV AND W ORAL CONTRAST DATE and TIME: 04/02/2023 3:07 pm IMPRESSION 1. Left lower quadrant stoma is stable in appearance from previous CT. Normal postoperative appearance with minimal parastomal fat herniation. Similar appearance seen on previous CT. IMPRESSION and PLAN: 62yo F w parastomal hernia symptomatic w worsening prolapse. - OR for robotic parastoma hernia repair and surgarbaker - MIVF - [employer] education [employer] - [employer] Patient seen and discussed w Dr Elder * Horace Elder MD - 05/15/2023 1:11 PM EDT HISTORY AND PHYSICAL EXAMINATION - General Surgery [facility]-[address] [id number] Name: Gilma Lantigua Location: OR [facility]/OR Date: 05/15/2023 Time: 1:11 PM PRESENTING PROBLEM: recurrent parastomal hernia. HISTORY OF PRESENT ILLNESS: Gilma Lantigua is a 62 year old, female with a recurrent parastomal hernia. She had anal cancer andhad radiation. She was reversed and developed sever radiation diarrhea. She had a diverting loop colostomy converted to an ed colostomy for prolapse. She has a bulge in the ostomy site with pain. HOSPITAL PROBLEM LIST: Principal Problem: Parastomal hernia without obstruction or gangrene (POA: Unknown) POA = Present On Admission PAST MEDICAL HISTORY: Past Medical History: Diagnosis Date Anemia Calculus of kidney 11/02 multiple - calcium Diffuse cystic mastopathy Esophageal reflux Loss of weight Lumbago chronic Mammographic microcalcification Medullary sponge kidney Monoclonal paraproteinemia Neutropenia Other specified acquired hypothyroidism 04/03 Other specified visual disturbances Panic disorder Raynaud's syndrome 12/22/2009 Secondary thrombocytopenia Sialoadenitis Sicca syndrome (HCC) Sjogrens syndrome (HCC) Systemic lupus erythematosus (HCC) PAST SURGICAL HISTORY: Past Surgical History: Procedure Laterality Date ANORECTAL EXAM ,DIAG, REQUIRING ANESTHESIA N/A 02/08/2019 ANORECTAL EXAM UNDER ANESTHESIA performed by Lexx Mcnulty DO at OR [facility] BLADDER CATH INSERTION,TEMP INDWELL, SIMPLE N/A 06/23/2018 INSERTION TEMPORARY INDWELLING CATHETER SIMPLE performed by Jama Rosado MD at OR [facility] BONE MARROW BIOPSY 2003 CHEMODENERVATION INTERNAL ANAL SPHINCTER N/A 02/08/2019 CHEMODENERVATION INTERNAL ANAL SPHINCTER performed by Lexx Mcnulty DO at OR [facility] COLONOSCOPY, DIAGNOSTIC (RECTUM) N/A 11/21/2015 COLONOSCOPY FLEXIBLE PROXIMAL DIAGNOSTIC performed by Lexx Mcnulty DO at [facility] COLONOSCOPY, DIAGNOSTIC (RECTUM) N/A 07/12/2019 COLONOSCOPY FLEXIBLE PROXIMAL DIAGNOSTIC performed by Lexx Mcnulty DO at OR [facility] COLONOSCOPY, DIAGNOSTIC (RECTUM) N/A 09/14/2020 COLONOSCOPY FLEXIBLE PROXIMAL DIAGNOSTIC performed by Lexx Mcnulty DO at OR [facility] COLONOSCOPY, SURGICAL 2010 COLOSTOMY OR CECOSTOMY, LAPAROSCOPIC N/A 07/25/2022 LAPAROSCOPIC COLOSTOMY OR CECOSTOMY performed by Lexx Mcnulty DO at OR [facility] CYSTOSCOPY/INSERTION OF STENT Bilateral 06/23/2018 CYSTOURETHROSCOPY WITH INSERTION URETERAL STENT performed by Jama Rosado MD at OR [facility] CYSTOSCOPY/URETERAL CATHETER Bilateral 06/23/2018 CYSTOURETHROSCOPY WITH URETERAL CATHETER performed by Jama Rosado MD at OR [facility] DILATION AND CURETTAGE (D&C) 1986 ESOPHAGOSCOPY, FLEXIBLE, WITH BIOPSY 2010 FLUORO PYELOGRAM RETROGRADE Bilateral 06/23/2018 UROGRAHY, RETROGRADE, WITH OR WITHOUT KUB performed by Jama Rosado MD at OR [facility] FRAGMENT KIDNEY STONE BY SHOCK WAVE 2011 multiple LAPAROSCOPIC PARTIAL COLECTOMY W/COLOPROCTOSTOMY Left 06/23/2018 LAPAROSCOPIC PARTIAL COLECTOMY WITH COLOPROCTOSTOMY performed by Lexx Mcnulty DO at OR [facility] LIGATE/CUT OVIDUCT(S) REMOVE TONSILS & ADENOIDS, AGE 12+ 1982 REMOVE WRIST TENDON SHEATH Right 01/15/2022 SYNOVECTOMY EXTENSOR TENDON SHEATH WRIST SINGLE performed by Chandra Rutherford MD at OR [facility] REPAIR BOWEL OPENING N/A 09/21/2018 CLOSURE ENTEROSTOMY performed by Lexx Mcnulty DO at OR [facility] REVISION OF COLOSTOMY/HERNIA REPAIR N/A 12/13/2022 REVISION OF COLOSTOMY WITH REPAIR PARACOLOSTOMY HERNIA performed by Lexx Mcnulty DO at [facility] THIGH/KNEE SUBQ TUMOR RESECTION,3CM OR MORE Right 01/15/2022 EXCISION, TUMOR, SOFT TISSUE OF THIGH OR KNEE AREA, SUBCUTANEIOUS; 3 CM OR GREATER performed by Chandra Rutherford MD at OR [facility] FAMILY HISTORY: Family History Problem Relation Age of Onset Cancer Father 50 pancreatic, Cancer Grandmother (Paternal) in her chest Diabetes Father Heart Disorder Grandmother (Maternal) Stroke Grandfather (Paternal) Other (Other) Sister autoimmune problems Other (Other) Sister autoimmune problems Other (Other) Brother autoimmune problems Diabetes Mother borderline SOCIAL HISTORY: Social History Tobacco Use Smoking status: Former Current packs/day: 0.00 Average packs/day: 0.8 packs/day for 2.0 years (1.5 ttl pk-yrs) Types: Cigarettes Start date: 08/24/1979 Quit date: 08/23/1981 Years since quittin.7 Smokeless tobacco: Never Tobacco comments: after smoking x 2 yrs. Vaping Use Vaping Use: Never used Substance Use Topics Alcohol use: No Drug use: No CURRENT HOSPITAL MEDICATIONS: Note that completed medications (per the MAR) continue to display for 24 hours. Ordered medicationsto be given in the future also display. Current Facility-Administered Medications Medication Dose Route Frequency Provider cefOXitin in dextrose (Mefoxin) ivpb 2 g 2 g IV Piggyback Wet Process Assistant Head Miller Luis Alberto Ramires MD hEParin inj 5,000 Units 5,000 Units Subcutaneous Wet Process Assistant Head Miller Luis Alberto Ramires MD isolyte-S pH 7.4 infusion Intravenous Continuous Luis Alberto Ramires MD ALLERGIES: Acetaminophen, Avelox [moxifloxacin hcl in nacl], Benadryl [diphenhydramine-zinc acetate], Cefuroxime axetil, Mesalamine, Paxil [paroxetine], Penicillins, Sertraline hcl, Sulfa antibiotics, Sympathomimetics, Vancomycin, and White petrolatum-mineral oil [eye lubricant] ROS: Constitutional: (-) fever chills sweats or weight loss Eyes: (-) negative, no amaurosis fugax, pain, blurred vision, or redness ENT: (-) negative: no headaches, vertigo, hearing loss, sinus, ear, or throat problems Cardiovascular: (-) negative: no chest pain, dyspnea, syncope, or palpitations Pulmonary: (-) negative: no cough, wheezing, or shortness of breath Abdominal/GI: (+) parastomal henria PHYSICAL EXAMINATION: Most Recent Vital Signs: BP: / Pulse: Temp: Temp Summary: No data recorded SpO2: O2 flow rate: Supplemental O2 Delivery: Constitutional: no acute distress HEENT: normal: normocephalic, atraumatic; no masses, tenderness, or adenopathy Eyes: sclera and conjunctiva normal Neck: supple, normal range of motion CV: normal rate and rhythm, no murmur, gallops or rub Chest: normal respiratory effort, lungs clear to auscultation and percussion Abdomen: normal: soft, bowel sounds normal, no masses, tenderness or organomegaly, colostomy in theLLQ. Small hernia noted. LABS: Labs reviewed as indicated below: stable IMAGING: CT scan demonstrates small parastomal heria. IMPRESSION and PLAN: Parastomal hernia. Will plan for a [employer] repair. REFERRING PHYSICIAN: 1. Caitie Aden DO 2. PRIMARY CARE PHYSICIAN: DO Horace Schroeder MD documented in this encounter Consult Notes * Barrington Gresham, PT - 05/17/2023 11:37 AM EDTAssociated Order(s): ADULT PHYSICAL THERAPY CONSULT IP GENERAL EVALUATION - Physical Therapy [facility]-[address] [id number] Name: Gilma Lantigua Location: [facility] B633/B Date: 05/17/2023 Time: 11:38 AM Gilma Lantigua is a 62 year old female. Patient Status: Inpatient Insurance: Payor: MEDICARE Plan: MEDICARE A AND B Product Type: *No Product type* Payor: [employer] Plan: [employer] Product Type: *No Product type* Patient Seen: at bedside, nursing cleared patient for therapy Patient Identified By: Name, ID Band, and Date Subjective: Pt seen in room, agreeable to exam. Pt reports she has been ambulating to/form bathroomiwht assist from her spouse. Diagnosis: Parastomal hernia (05/17/23 113) Status of treatment: Evaluation completed (05/17/23 113) Orders: PT evaluation and treatment;OOB (05/17/23 113) Precautions: Falls (05/17/23 113) Total Treatment Time--free text: 16 (05/17/23 113) Past Medical History: Past Medical History: Diagnosis Date Anemia Calculus of kidney 11/02 multiple - calcium Diffuse cystic mastopathy Esophageal reflux Loss of weight Lumbago chronic Mammographic microcalcification Medullary sponge kidney Monoclonal paraproteinemia Neutropenia Other specified acquired hypothyroidism 04/03 Other specified visual disturbances Panic disorder Raynaud's syndrome 12/22/2009 Secondary thrombocytopenia Sialoadenitis Sicca syndrome (HCC) Sjogrens syndrome (HCC) Systemic lupus erythematosus (HCC) Past Surgical History: Past Surgical History: Procedure Laterality Date ANORECTAL EXAM ,DIAG, REQUIRING ANESTHESIA N/A 02/08/2019 ANORECTAL EXAM UNDER ANESTHESIA performed by Lexx Mcnulty DO at OR [facility] BLADDER CATH INSERTION,TEMP INDWELL, SIMPLE N/A 06/23/2018 INSERTION TEMPORARY INDWELLING CATHETER SIMPLE performed by Jama Rosado MD at OR [facility] BONE MARROW BIOPSY 2004 CHEMODENERVATION INTERNAL ANAL SPHINCTER N/A 02/08/2019 CHEMODENERVATION INTERNAL ANAL SPHINCTER performed by Lexx Mcnulty DO at OR [facility] COLONOSCOPY, DIAGNOSTIC (RECTUM) N/A 11/21/2015 COLONOSCOPY FLEXIBLE PROXIMAL DIAGNOSTIC performed by Lexx Mcnulty DO at [facility] COLONOSCOPY, DIAGNOSTIC (RECTUM) N/A 07/12/2019 COLONOSCOPY FLEXIBLE PROXIMAL DIAGNOSTIC performed by Lexx Mcnulty DO at OR [facility] COLONOSCOPY, DIAGNOSTIC (RECTUM) N/A 09/14/2020 COLONOSCOPY FLEXIBLE PROXIMAL DIAGNOSTIC performed by Lexx Mcnulty DO at OR [facility] COLONOSCOPY, SURGICAL 2011 COLOSTOMY OR CECOSTOMY, LAPAROSCOPIC N/A 07/25/2022 LAPAROSCOPIC COLOSTOMY OR CECOSTOMY performed by Lexx Mcnulty DO at OR [facility] CYSTOSCOPY/INSERTION OF STENT Bilateral 06/23/2018 CYSTOURETHROSCOPY WITH INSERTION URETERAL STENT performed by Jama Rosado MD at OR [facility] CYSTOSCOPY/URETERAL CATHETER Bilateral 06/23/2018 CYSTOURETHROSCOPY WITH URETERAL CATHETER performed by Jama Rosado MD at OR [facility] DILATION AND CURETTAGE (D&C) 1986 ESOPHAGOSCOPY, FLEXIBLE, WITH BIOPSY 2010 FLUORO PYELOGRAM RETROGRADE Bilateral 06/23/2018 UROGRAHY, RETROGRADE, WITH OR WITHOUT KUB performed by Jama Rosado MD at OR [facility] FRAGMENT KIDNEY STONE BY SHOCK WAVE 2010 multiple LAPAROSCOPIC PARTIAL COLECTOMY W/COLOPROCTOSTOMY Left 06/23/2018 LAPAROSCOPIC PARTIAL COLECTOMY WITH COLOPROCTOSTOMY performed by Lexx Mcnulty DO at OR [facility] LIGATE/CUT OVIDUCT(S) REMOVE TONSILS & ADENOIDS, AGE 12+ 1982 REMOVE WRIST TENDON SHEATH Right 01/15/2022 SYNOVECTOMY EXTENSOR TENDON SHEATH WRIST SINGLE performed by Chandra Rutherford MD at OR [facility] REPAIR BOWEL OPENING N/A 09/21/2018 CLOSURE ENTEROSTOMY performed by Lexx Mcnulty DO at OR [facility] REVISION OF COLOSTOMY/HERNIA REPAIR N/A 12/13/2022 REVISION OF COLOSTOMY WITH REPAIR PARACOLOSTOMY HERNIA performed by Lexx Mcnulty DO at OR [facility] RPR AA HERNIA RECR 3-10 CM REDUCIBLE N/A 05/15/2023 ROBOTIC INCISIONAL/VENTRAL/UMBILICAL HERNIA REPAIR RECURRENT 3-10 CM REDUCIBLE performed by Horace Elder MD at [facility] THIGH/KNEE SUBQ TUMOR RESECTION,3CM OR MORE Right 01/15/2022 EXCISION, TUMOR, SOFT TISSUE OF THIGH OR KNEE AREA, SUBCUTANEIOUS; 3 CM OR GREATER performed by Chandra Rutherford MD at OR [facility] Social History/Disposition Lives with: Spouse (05/17/231136) Assistance available: Yes (05/17/231136) Dwelling type: Single story home (05/17/231136) Entry steps: 2 (05/17/231136) Bedroom location: 1st floor (05/17/231136) Bath location: 1st floor full bath (05/17/231136) Prior Level of Function Reported by: Patient (05/17/231136) Ambulation: Ambulatory without device (05/17/231136) Observations Consciousness: Alert (05/17/231136) Orientation: Oriented times 4 (05/17/231136) Psychosocial: Patient can communicate basic needs;Patient can converse in a social setting (05/17/231136) Sitting Posture: Rounded shoulders (05/17/231136) Standing Posture: Rounded shoulders (05/17/231136) Pain: Patient has complaints of pain. Pain located abdomen. LOWER EXTREMITY ASSESSMENT: LE MMT: WFL LE ROM: WFL P.T. Bed Mobility Supine-Sit: Minimal Assistance (05/17/231136) Sit-Supine: Minimal Assistance (05/17/231136) Transfers Sit-Stand: Contact Guard (05/17/231136) Stand-Sit: Contact Guard (05/17/231136) Ambulation Assist: Contact Guard (05/17/231136) Distance Ambulated (feet): 180 (05/17/231136) Assistive Device: No device (05/17/231136) Ambulatory safety: Patient verbalizes insight of current deficits;Patient demonstrates carryover ofinsight during functional tasks (05/17/231136) Balance Sit (Static): Fair (05/17/231136) Sit (Dynamic): Fair (05/17/231136) Stand (Static): (Fair-) (05/17/231136) Stand (Dynamic): (Fair-) (05/17/231136) Patient and or Family Goal(s): to get well and to return home Patient Education Review of Precautions: Fall (05/17/231136) Safety Awareness: Patient verbalizes insight of current deficits;Patient demonstrates carryover of insight during functional tasks (05/17/231136) Preferred learning method: Combination (05/17/231136) Barriers to learning: None (05/17/231136) Method of Education: Verbalized to patient;Patient demonstrated task (05/17/231136) Topic of Education: Goals/plan of care Method of Education: Verbal discussion and explanation provided to patient: verbalized understanding and or agreement of this information Treatment Provided: Evaluation Low Complexity 16 minutes - 04954: Patient was cooperative during treatment session. Low complexity evaluation performed with indication of no personal factors or comorbidities that impact plan of care. Patient presents with limitations in bed mobility, transfers, gait, elevations, balance, and endurance, which will impact plan of care. These limitations will be addressed by the goals set for this patient. Alarm Status Patient positioned in: Bed (05/17/231136) With: Call bingham in reach (05/17/231136) Assessment: Gilma Lantigua is a 62 year old female admitted to [facility] with parastomal hernia. Pt underwent surgical treatment on 05/15/23. Pt has functional strength in her LE's. Pt requested assistance with bed mobility due to increased pain attempting to complete task unassisted. Pt was able to transfer and ambulate without device, slow aric observed. Pt may benefit from continued PT services towork on deficits to maximize functional independence. Please consider home with post-acute care services which may include home health or outpatient therapy. The level of care will be determined in collaboration with the patient, family/caregiver and care team members. Deficits requiring P.T. treatment needs: Mobility;Balance;Weakness;Endurance (05/17/231136) Goals: Demonstrate Bed Mobility with : Supine to Sit: Modified Independent Sit to Supine: Modified Independent Demonstrate Transfers with: Sit to Stand: Modified Independent Stand to Sit: Modified Independent Demonstrate Ambulation: Device: None Distance in feet: 400 feet Level of Assistance on level surface: Modified Independent Demonstrate Stairclimbing: Number of steps: 2 : 1 rail, and Level of Assistance: Modified Independent Increase Balance: Fair + with Dynamic Standing Time Frame: 6 visits Treatment Plan: Bed mobility training, Transfer training, Gait training, Elevation training, and Balance activities Anticipated Frequency (on eval): 1 to 3 times per week (05/17/231136) AM-PAC Score With Stairs : 18 (05/17/231136) Some items of AM-PAC not tested due to overall medical status, grades determined based on clinical judgement of how patient may do at this time had they been assessed. * Jama Humphries, OT - 05/17/2023 11:37 AM EDTAssociated Order(s): ADULT OCCUPATIONAL THERAPY CONSULT IP GENERAL EVALUATION- Occupational Therapy [facility]-[address] [id number] Name: Gilma Lantigua Location: [facility] B633/B Date: 05/17/2023 Time: 12:56 PM HPI: Per [facility], "Gilma Lantigua is a 62 year old, female with a recurrent parastomal hernia. She hadanal cancer and had radiation. She was reversed and developed sever radiation diarrhea. She had a diverting loop colostomy converted to an ed colostomy for prolapse. She has a bulge in the ostomy site with pain." Patient Status: Inpatient Insurance: Payor: MEDICARE Plan: MEDICARE A AND B Product Type: *No Product type* Payor: [employer] Plan: [facility] Product Type: *No Product type* Patient Seen: at bedside, nursing cleared patient for therapy Patient Identified By: Name, ID Band and Date Diagnosis: Parastomal hernia (05/17/231136) Status of treatment: Evaluation completed (05/17/231136) Orders: OT evaluation and treatment;OT OOB (05/17/231136) Weight Bearing Status: Weight bearing as tolerated (05/17/231136) Precautions: Alarms;Falls;Safety (05/17/231136) Total Treatment Time: 15 (05/17/231136) Past Medical History: Past Medical History: Diagnosis Date Anemia Calculus of kidney 11/02 multiple - calcium Diffuse cystic mastopathy Esophageal reflux Loss of weight Lumbago chronic Mammographic microcalcification Medullary sponge kidney Monoclonal paraproteinemia Neutropenia Other specified acquired hypothyroidism 04/03 Other specified visual disturbances Panic disorder Raynaud's syndrome 12/22/2009 Secondary thrombocytopenia Sialoadenitis Sicca syndrome (HCC) Sjogrens syndrome (HCC) Systemic lupus erythematosus (HCC) Past Surgical History: Past Surgical History: Procedure Laterality Date ANORECTAL EXAM ,DIAG, REQUIRING ANESTHESIA N/A 02/08/2019 ANORECTAL EXAM UNDER ANESTHESIA performed by Lexx Mcnulty DO at OR [facility] BLADDER CATH INSERTION,TEMP INDWELL, SIMPLE N/A 06/23/2018 INSERTION TEMPORARY INDWELLING CATHETER SIMPLE performed by Jama Rosado MD at OR [facility] BONE MARROW BIOPSY 2004 CHEMODENERVATION INTERNAL ANAL SPHINCTER N/A 02/08/2019 CHEMODENERVATION INTERNAL ANAL SPHINCTER performed by Lexx Mcnulty DO at [facility] COLONOSCOPY, DIAGNOSTIC (RECTUM) N/A 11/21/2015 COLONOSCOPY FLEXIBLE PROXIMAL DIAGNOSTIC performed by Lexx Mcnulty DO at [facility] COLONOSCOPY, DIAGNOSTIC (RECTUM) N/A 07/12/2019 COLONOSCOPY FLEXIBLE PROXIMAL DIAGNOSTIC performed by Lexx Mcnulty DO at OR [facility] COLONOSCOPY, DIAGNOSTIC (RECTUM) N/A 09/14/2020 COLONOSCOPY FLEXIBLE PROXIMAL DIAGNOSTIC performed by Lexx Mcnulty DO at OR [facility] COLONOSCOPY, SURGICAL 2010 COLOSTOMY OR CECOSTOMY, LAPAROSCOPIC N/A 07/25/2022 LAPAROSCOPIC COLOSTOMY OR CECOSTOMY performed by Lexx Mcnulty DO at OR [facility] CYSTOSCOPY/INSERTION OF STENT Bilateral 06/23/2018 CYSTOURETHROSCOPY WITH INSERTION URETERAL STENT performed by Jama Rosado MD at [facility] CYSTOSCOPY/URETERAL CATHETER Bilateral 06/23/2018 CYSTOURETHROSCOPY WITH URETERAL CATHETER performed by Jama Rosado MD at OR [facility] DILATION AND CURETTAGE (D&C) 1986 ESOPHAGOSCOPY, FLEXIBLE, WITH BIOPSY 2010 FLUORO PYELOGRAM RETROGRADE Bilateral 06/23/2018 UROGRAHY, RETROGRADE, WITH OR WITHOUT KUB performed by Jama Rosado MD at OR [facility] FRAGMENT KIDNEY STONE BY SHOCK WAVE 2010 multiple LAPAROSCOPIC PARTIAL COLECTOMY W/COLOPROCTOSTOMY Left 06/23/2018 LAPAROSCOPIC PARTIAL COLECTOMY WITH COLOPROCTOSTOMY performed by Lexx Mcnulty DO at OR [facility] LIGATE/CUT OVIDUCT(S) REMOVE TONSILS & ADENOIDS, AGE 12+ 1982 REMOVE WRIST TENDON SHEATH Right 01/15/2022 SYNOVECTOMY EXTENSOR TENDON SHEATH WRIST SINGLE performed by Chandra Rutherford MD at OR [facility] REPAIR BOWEL OPENING N/A 09/21/2018 CLOSURE ENTEROSTOMY performed by Lexx Mcnulty DO at [facility] REVISION OF COLOSTOMY/HERNIA REPAIR N/A 12/13/2022 REVISION OF COLOSTOMY WITH REPAIR PARACOLOSTOMY HERNIA performed by Lexx Mcnulty DO at OR [facility] RPR AA HERNIA RECR 3-10 CM REDUCIBLE N/A 05/15/2023 ROBOTIC INCISIONAL/VENTRAL/UMBILICAL HERNIA REPAIR RECURRENT 3-10 CM REDUCIBLE performed by Horace Elder MD at [facility] THIGH/KNEE SUBQ TUMOR RESECTION,3CM OR MORE Right 01/15/2022 EXCISION, TUMOR, SOFT TISSUE OF THIGH OR KNEE AREA, SUBCUTANEIOUS; 3 CM OR GREATER performed by Chandra Rutherford MD at OR [facility] Social History/Disposition Lives with: Spouse (05/17/231136) Assistance available: Yes (05/17/231136) Dwelling type: Single story home (05/17/231136) Entry steps: 2 (05/17/231136) Bedroom location: 1st floor (05/17/231136) Bath location: 1st floor full bath (05/17/231136) Prior Level of Function Reported by: Patient (05/17/231136) Ambulation: Ambulatory without device (05/17/231136) Grooming: Independent (05/17/23 113) Bathing: Independent (05/17/231136) Dressing: Independent (05/17/23 113) Feeding: Independent (05/17/231136) Toileting: Independent (05/17/23 113) Meal Prep: Independent (05/17/23 113) Homemaking: Independent (05/17/231136) Observations Consciousness: Alert (05/17/231136) Orientation: Oriented times 4 (05/17/231136) Psychosocial: Patient can communicate basic needs;Patient can converse in a social setting (05/17/231136) Sitting posture: Forward head;Rounded shoulders (05/17/231136) Standing posture: Forward head;Rounded shoulders (05/17/231136) Safety awareness: The Patient verbalizes insight of current deficits.;The Patient demonstrates carryover of insight during functional tasks. (05/17/231136) Pain: Patient has complaints of surgical site pain Current Functional Status: UE Strength/ROM: BUE are WFL and 4+/5 throughout Bed Mobility Supine-Sit: Minimal Assistance (05/17/231136) Sit-Supine: Minimal Assistance (05/17/231136) OT Transfers Sit-Stand: Contact Guard (05/17/231136) Stand-Sit: Contact Guard (05/17/231136) Bed-Chair: Contact Guard (05/17/231136) Functional Ambulation Assistive Device: No device (05/17/231136) Distance in feet:: 180 (05/17/231136) Level of Assistance: Contact Guard (05/17/231136) Self Care Able to provide self care: Yes (05/17/231136) Balance Sit (Static): Fair (05/17/231136) Sit (Dynamic): Fair (05/17/231136) Stand (Static): Fair (05/17/231136) Stand (Dynamic): (Fair-) (05/17/231136) Dressing Upper Body: Supervision (Please comment) (to don gown) (05/17/231136) Lower Body: Supervision (Please comment) (to don socks) (05/17/231136) Patient and or Family Goal(s): None Alarm Status Patient positioned in: Bed (05/17/231136) With: Bed alarm intact and functioning and call bingham in reach (05/17/231136) Treatment Provided: Evaluation Low Complexity 15 minutes - 98398: Patient was cooperative during treatment session. Low complexity evaluation performed and ADL deficit and functional mobility deficitdeficits were identified that result in activity limitation. The patient does not have any comorbidities that affect occupational performance. There were no modifications necessary to complete the evaluation. Patient Education Education Topic: Role of OT;Plan of care goals (05/17/231136) Review of Precautions: Safety;Fall (05/17/231136) Method of Education: Verbalized to patient (05/17/231136) Education Provided to: Patient (05/17/231136) Response to Education: Receptive and agreeable to education (05/17/231136) Barriers to learning: None (05/17/231136) Preferred learning method: Combination (05/17/231136) Method of Education: Verbal discussion and explanation provided to patient: verbalized understanding and or agreement of this information Assessment: Patient is a 62 year old female admitted on 05/15/23 with parastomal hernia, now seen post op. She was previously living at home and reports being independent for ADLs/mobility. On exam, patient was able to complete bed mobility with supervision only. She was able to simulate UB/LB dressing tasks at supervision level while edge of bed. Patient was able to ambulate in hallway and in/outof bathroom with contact guarding due to unsteadiness. She would benefit from ongoing acute OT services to improve function. Please consider home with post-acute care services which may include home health or outpatient therapy. The level of care will be determined in collaboration with the patient, family/caregiver and care team members. AM-PAC Help From Another Person Eating Meals: None (05/17/231136) Help From Another Person Taking Care of Personal Grooming: None (05/17/231136) Help From Another Person To Put On/Take Off Upper Body Clothing: A little (05/17/231136) Help From Another Person To Put On/Take Off Lower Body Clothing: A little (05/17/231136) Help From Another Person Toileting: A little (05/17/231136) Help From Another Person Bathing: A little (05/17/231136) OT AM-PAC Score: 20 (05/17/231136) OT AM-PAC t-Scale Score: 42.03 (05/17/231136) HLM (Highest Level of Mobility) Goal: Level 6 walk 10 steps or more (05/17/231136) A portion of this AM-PAC assessment not scored based on functional assessment; rather clinical decision making was utilized based on current findings and/or prior level of function. Please refer to future AM-PAC calculations of functional ability as they become available. Deficits requiring O.T. treatment needs: ADL/self- care;Balance;Endurance;Functional mobility;IADL;Safety;Upper extremity strength;Weakness (05/17/23 1137) Goals: Increase Strength of BUE to 5/5 in all areas Demonstrate sitting Balance of Fair+ Demonstrate standing Balance of Fair+ Demonstrate self care at modified independence for all UB and LB tasks Demonstrate toileting with modified independence Demonstrate Bed Mobility with modified independence Demonstrate Transfers with modified independence Demonstrate Functional Ambulation with modified independence Treatment Plan: Accuracy with Precautions, Safety, Bed mobility training, Functional Ambulation, Transfer training, Coordination Tasks, Upper extremity strengthening, Balance activities, ADL training, and Endurance Goal Time Frame:8 visits Anticipated Frequency (on eval): 1 to 3 times per week (05/17/23 1137) * Dustin Aguillon RN - 05/16/2023 12:15 PM EDTAssociated Order(s): WOUND/OSTOMY CONSULT IP Wound / Ostomy Nurse Consult Note Patient seen by wound ostomy nurse for ostomy care and education. Patient s/p parastomal hernia repair to left abdomen colostomy. Pouching intact to left abdomen colostomy. Stoma visualized through pouch, pouching intact. Stoma ~ 1 1/2" red, round, raised. Scant serosang drainage in pouch. Stoma Patient previously independent with pouching. Patient has supplies at home, hope to use same supplies. Home ostomy supplies at bedside with patient. Already discussed with medical supply [employer] ordering supplies after discharge, pending stoma size. Supplies planned to use: [place] cut to fit 2 piece build in closure. Either 2 1/4" or 2 3/4" pending stoma size. Will continue to follow. Call with pouching concerns. documented in this encounter Nursing Notes * Gabbi Hensley RN - 05/20/2023 2:17 PM EDT I have reviewed and agree with assessment documented by Elijah Espino RN. * Gabbi Hensley RN - 05/17/2023 10:55 AM EDT I have reviewed and agree with assessment documented by Elijah Espino RN. * Loreto Bui RN - 05/16/2023 6:14 AM EDT Post Anesthesia Care Unit Transport Note [facility] [address] [facility] [id number] Dept. Gilma Lantigua Transported from [facility] to : [id number] Time: 0550 Care of patient transferred to: [place] Transported via: Bed Belongings with Patient: YES Pulse : 68 Temp : 36.9 BP : 97/41 Respirations : 16 Pulse Ox : 99 O2 : room air SCDS: On and activated * Julianne Delgado RN - 05/15/2023 1:36 PM EDT Dual Licensed Skin Assessment completed by ALONSO nuñez and ALONSO murray. The patient is/has a N/A Skin Breakdown (includes non blanchable erythema): No * Andrew Mahoney RN - 05/13/2023 2:30 PM EDT NO ANESTHESIA EVAL REQUESTED PER CASE DOCUMENTATION. PREOP PATIENT INFORMATION AND EDUCATION: MEDICATION INSTRUCTIONS: The day of surgery/procedure, you may TAKE the following medications with a sip of water up to 2 hours prior to your arrival time: Tylenol if needed Levothyroxine Omeprazole Klonopin if needed Eye drops as directed if needed AVOID/ DO NOT TAKE any medications the morning of surgery/procedure that are not listed above. STOP taking the following medications the noted number of days prior to surgery/procedure unless otherwise specified by your surgeon: Please follow surgeon's instructions regarding use of Aspirin, Coumadin, Plavix, Eliquis, and any other blood thinner including NSAIDs (non-steroidal anti- inflammatory drugs, eg, Advil, Ibuprofen, Motrin, Aleve, Naproxen); if you have any questions regarding your anticoagulation therapy please contact your surgeon's clinic. Please verify any proposed stoppage of your anticoagulation therapy with the agent's prescribing provider. 10 days prior to surgery/procedure Stop all Herbal supplements, Green Tea, Turmeric, Melatonin, CBD, THC, etc. Stop all Vitamins (including Vitamin E) 24 hours prior to surgery/procedure DO NOT consume any alcohol. DO NOT use medical marijuana. DO NOT smoke or use tobacco products of any kind after midnight prior to surgery. *Using any of these products may increase your risks of procedural complications. IF IT IS LESS THAN RECOMMENDED STOPPAGE TIME PLEASE STOP AT TIME OF NOTIFICATION. FASTING RECOMMENDATIONS: To reduce risk, it is important for all elective surgery patients to follow the specific fasting guidelines listed below. If you have received more stringent guidelines, please follow the MOST RESTRICTIVE guidelines that you have been provided. DO NOT EAT after midnight on the night prior to your surgery date. You are allowed to drink clear liquids up to two hours prior to arrival time to the hospital or surgery center. Examples of clear liquids include water, clear fruit juice without pulp, clear carbonated beverages, clear tea, and black coffee. Any drinks given by your surgical service take as directed. Infant/pediatric patients who currently drink breast milk, infant formula, and non-human milk must not eat after midnight. These patients are allowed to drink only the liquids listed below up to two hours prior to arrival time to the hospital or surgery center: Ingested Material Minimum Fasting Time Clear liquid After midnight up to 2 hours prior to arrival time Breast milk Up to 4 hours prior to arrival time formula Up to 6 hours prior to arrival time Non-human milk Up to 6 hours prior to arrival time THE DAY BEFORE YOUR SURGERY: -Drink plenty of fluid the day before your surgery. Contact your surgeon's office if you develop any of the following within 2 weeks of surgery: A cold Infection Fever Shingles Chicken pox or exposure to chicken pox Open areas such as scrapes, cuts, oquendo or other skin conditions Rashes GENERAL INSTRUCTIONS FOR PREPARING FOR SURGERY: BATHING INSTRUCTIONS: Bathe the evening prior to and the morning of surgery/procedure. Cleanse your body using ONLY anti-bacterial soap (eg, Dial, Safeguard) or any specific soap/cleansers and instructions provided by your surgeon (eg, Chlorhexidine). -You should brush your teeth the morning of surgery. Do NOT apply any lotions, powders, sprays, creams, oils, make-up, or deodorants after bathing. No hairspray, or nail yoruba on fingers or toes. Day of surgery/procedure do not use tampons. If you wear contacts wear your eyeglasses if available otherwise bring your contact supplies with you to remove them prior to your surgery/procedure. If you wear glasses or dentures, please bring cases in which you can store them during your surgery. Please remove all piercings and jewelry and leave them at home. Wear comfortable and loose clothing. -Please leave all valuables at home. -If you use a CPAP and are staying overnight, please bring your mask and tubing with you to the hospital. -If you use an assistive mobility device (walker, cane, etc), please label it with your name and bring to hospital. -An escort trencher driver is required if you are being discharged the same day of the surgery. You should have a responsible adult over the age of 18 [address] drive you home. This person should be present with youin the hospital at the time of discharge and for the first 24 hours after the surgery to support your needs. If you are taking a taxi home, you must have your responsible libertarian accompany you in the taxi ride home at the time of discharge. OR times subject to change. Please check voicemail messages the day/evening before your surgery forany updates. PRE-OP: You will be taken to the pre-op area where your vital signs (blood pressure, pulse and temperature)will be taken. Any preparations that need to be done will be done there. When it is time for your surgery, you will be taken to the operating room. PARENTS OF PEDIATRIC PATIENTS WILL BE ALLOWED TO STAY WITH THEIR CHILDREN UNTIL THEY ARE ESCORTED TO THE OPERATING ROOM OUTPATIENT SURGERY PATIENTS: After your surgery you will be taken to the Same Day Surgery Unit when you are awake and will go home from there. You will get instructions about your home care before you leave. Arrange to have someone drive you home from the hospital. You may not drive for 24 hours after anesthesia. You must havean adult stay with you at home for 24 hours after your operation. This is very important. If you are not able to comply with these guidelines, your Short Stay surgery cannot be done. ADMISSION PATIENTS: After your stay in the recovery area, you will be taken to your room. Your family may visit you in your room based on current visitation policy. If a next day discharge is expected, it is important to make arrangements for a trencher driver to take you home. Please be aware our visitation policies are subject to change Professionals, attendants, caregivers or family members are allowable visitors for patients with intellectual, developmental or cognitive disabilities, communication barriers or behavioral concerns. Because patients' and families' needs vary, they will be taken into account when applying visitation restrictions. [facility]: Contact # [phone] Directions to Surgical Suite in from the [place] Entrance The [facility]. Enter through Main Lobby Entrance and the Waiting Room is directly in front of you. Proceed to check in and give them your name. Directions to Surgical Suite from the East Entrance Enter the East entrance and follow the hallway to the J elevator. Take the J elevator up to Level 1. Continue down the long hallway to the main [facility] Lobby. The Surgical Waiting Room will be on your Right. Proceed to check in and give them your Name. Directions to Surgical Suite from the Parking Garage Enter the [facility] lobby and proceed down the bautista to the left. At the end of the bautista, turn right. Continue down the long hallway to the main [facility] Lobby. The Surgical Waiting Room will be on your Right. Proceed to check in and give them your Name. THANK YOU FOR CHOOSING [facility] Patient identified by: name/birthdate Person taught: Patient Optime case procedure confirmed with patient/parent/guardian - no consent signed. Laterality confirmed as N/a Surgery date at time of Pre-Surgery Center Encounter: 05/15/23 What procedure is patient having? parastomal hernia repair In an emergency, is patient willing to accept blood products or blood transfusion? Not addressed Do you need to place a blood bank order? No Anesthesia consent pool notified? N/A Anesthesia evaluation requested per case documentation? No Preop Evaluation Requested? No PATIENT EDUCATION SCREENING Person taught: Patient Motivation Level: Asks Questions Language Barrier: No Physical Barrier: N/A METHOD: Lecture-telephone interview Patient Preferred Learning Methods: Lecture-Telephone interview Health History interview completed, questions answered, and the following patient instructions provided via telephone interview: Preoperative bathing instructions General preoperative instructions Medication instructions NPO instructions OUTCOME: Verbalizes understanding of education Presurgery instructions sent to patient via [employer] message. documented in this encounter Miscellaneous Notes * Ancillary Progress Note - Marysol Sharma PTA - 05/20/2023 11:53 AM EDT PROGRESS NOTE - Physical Therapy [address] [address] Name: Gilma Lantigua Location: [facility] B6/B Date: 05/20/2023 Time: 11:53 AM Gilma Lantigua is a/an 62 year old female. Patient Status: Inpatient Insurance: Payor: MEDICARE Plan: MEDICARE A AND B Product Type: *No Product type* Payor: [employer] Plan: [employer] Product Type: *No Product type* Patient Identified By: Name, ID Band and Date Diagnosis: Parastomal hernia (05/20/23 115) Status of treatment: Treatment completed (05/20/231152) Orders: PT evaluation and treatment;OOB (05/20/23 115) Weight Bearing Status: Weight bearing as tolerated (05/20/23 115) Precautions: Falls (05/20/231152) Total Treatment Time--free text: 9 (05/20/23 115) Treatment Provided: Gait Training 9 minutes: gait training with no device stair training Pain: No complaints of pain P.T. Bed Mobility Supine-Sit: Supervision (05/20/23 115) Sit-Supine: Supervision (05/20/23 115) Transfers Sit-Stand: Supervision (05/20/231152) Stand-Sit: Supervision (05/20/231152) Ambulation: Distance ambulated (feet): 200 Assistive Device: No device Assist: Close Supervision Stair Training: Number of stairs: 2 Number of handrails: hand held assist Level of Assistance: contact guard Noted gait deviations: decreased arm swing during gait (05/20/23 115) Balance Sit (Static): Fair (05/20/231152) Sit (Dynamic): Fair (05/20/231152) Stand (Static): Fair (05/20/231152) Stand (Dynamic): (fair to fair -) (05/20/231152) Topic of Education: Safety with mobility, Goals/plan of care, Stair training, and Fall prevention Method of Education: Verbal discussion and explanation provided to pt: Alarm Status Patient positioned in: Bed (05/20/231152) With: Call bingham in reach (no alarm upon arrival) (05/20/231152) Patient Education Review of Precautions: Fall (05/20/231152) Safety Awareness: Patient verbalizes insight of current deficits;Patient demonstrates carryover of insight during functional tasks (05/20/231152) Assessment: Pt completed bed mobility and transfers with supervision. She ambulated 200' without a device requiring close supervision. Noted decreased arm swing during gait. He ascended/descended 2 steps using hand held assist requiring contact guard assist. Please consider home with post-acute care services which may include home health or outpatient therapy. The level of care will be determinedin collaboration with the patient, family/caregiver and care team members. Deficits requiring P.T. treatment needs: Mobility;Balance;Weakness;Endurance (05/20/231152) Plan: Continue with current treatment plan established on evaluation. AM PAC Score with Stairs: 18 * Ancillary Progress Note - Frank Adams RN - 05/20/2023 9:26 AM EDT CARE MANAGEMENT - ADULT DISCHARGE NOTE [facility] [address] Name: Gilma Lantigua Location: [facility] B633/B Date: 05/20/2023 Time: 9:26 AM The following coordination of care and discharge plan has been coordinated with the care team, patient, family and/or caregiver according to the patients needs and preferences. Discharge Discharge Second Notice Important Message from Medicare delivered: Yes (05/20/23924) Date Delivered: 05/20/23 (05/20/23924) Discharge Transportation: Family/Friends drive (05/20/23924) Patient declined post-hospital transition of care recommendation: N/A (05/20/23924) Final Discharge Plan (Complete only at time of Discharge): Home - Self Care (05/20/23924) Destination - Admitted Since 05/15/2023 No services have been selected for the patient. Narrative: Surgery patient discussed with Yann ESCOBAR this morning. Diet advanced to Regular. Discharge to home later today vs tomorrow, pending PO tolerance. AMPAC= 24 Pt discharging to home. No needs identified by CM. Family/friends anticipated to provide discharge transportation. Please contact CM with any concerns. * Progress Notes - Post-Op Global - Luis Alberto Ramires MD - 05/20/2023 9:20 AM EDT PROGRESS NOTE - General Surgery [facility] [address] Name: Gilma Lantigua Location: [facility] B633/B Date: 05/20/2023 Time: 9:20 AM DIAGNOSIS: parastomal hernia PROCEDURE: robotic sugarbaker DATE OF SURGERY: 05/15/23 POST OP DAY: 5 Days Post-Op SUBJECTIVE: No nausea overnight - believes that nausea was due to taking medications. AF, VSS, on RA. Patient tolerating diet. No nausea or vomiting. Pain well controlled on current regimen. Voiding. Ambulating.Passing stool and gas through ostomy. OBJECTIVE: Most Recent Vital Signs: BP: 106 mmHg/46 mmHg (05/20/23744) Pulse: 94 (05/20/23744) Temp: 36.61 C (05/20/23744) Temp Summary: Temp Min: 36.6 C (97.9 F) Max: 37.1 C (98.8 F) SpO2: 97 % (05/20/23744) O2 flow rate: 0 L/MIN (05/16/23 1523) Supplemental O2 Delivery: Room Air, None (05/20/23744) Vital Signs Last 24 Hours: Systolic BP: Most Recent Systolic BP Av.6 mmHg Min: 98 mmHg Max: 106 mmHg Temperature: Most Recent Temperature Av.9 C Min: 36.61 C Max: 37.11 C Pulse: Pulse Av.3 Min: 88 Max: 97 Respirations: Resp Av Min: 16 Max: 16 SpO2: SpO2 Av % Min: 97 % Max: 100 % In / Out Past 24 Hrs: Intake/Output Summary (Last 24 hours) at 05/20/2023 0920 Last data filed at 05/20/2023 0535 Gross per 24 hour Intake -- Output 375 ml Net -375 ml Physical Exam: Gen: no acute distress Neck: supple CV: RRR, no MRG Chest: nonlabored breathing, CTAB Abdomen: very soft, nondistended, TTP diffusely, ostomy with liquid stool in the bag, robotic incisions w dermabond c/d/I, right lower abdomen old ecchymosis w ?associated hematoma Neuro: AOX3 Extremities: warm, well perfused, no pitting edema LABS: Labs reviewed as indicated below: BMP Lab results within last 7 days (see chart for full results) Units 05/20/23 0527 05/19/23 0725 05/18/23 0757 Sodium mmol/L 136 135 137 Potassium mmol/L 3.7 3.6 4.2 Chloride mmol/L 103 103 105 CO2 mmol/L BUN mg/dL 17 14 14 Creatinine mg/dL 0.7 0.8 0.8 CBC Lab results within last 7 days (see chart for full results) Units 05/20/23 0527 05/19/23 0725 05/18/23 0757 HGB g/dL 11.6* 11.0* 11.6* HCT % 34.9* 32.9* 35.7* WBC K/uL 3.83* 3.88* 5.04 PLT K/uL 114* 108* 91* IMAGING: No new imaging IMPRESSION: Principal Problem: Parastomal hernia without obstruction or gangrene Resolved Problems: * No resolved hospital problems. * Gilma Lantigua is a 62 year old female with Parastomal hernia s/p Robotic Sugarbaker by Dr. Eldre on 05/15/2023. Uncomplicated post op course. PLAN: Diet: advance diet back to regular Analgesia: tylenol, oxy 5/10 PRN, dilaudid breakthrough, soma PRN Antibiotics: periop mefoxin complete IVF: isolyte off Nausea: Zofran PRN Respiratory: Encourage IS. RPDP Activity: encourage OOB Home Medications: RESTARTED: levoxyl, prilosec, klonopin prn, tobradex eye drops DVT/PE ppx: SCDs, TEDs , & lovenox Bowel Regimen: Colace and Senna, dc miralax Wheeler: N/A GI ppx: diet by mouth and Proton Pump Inhibitor Drains/Lines: PIVs Dispo: med surg, d/c today if tolerating diet Patient seen and discussed with Dr.Semian Luis Alberto Ramires MD, PGY-3 General Surgery [facility] Associated attestation - Horace Elder MD - 05/20/2023 1:09 PM EDT I saw and evaluated the patient today. I have reviewed the trainee note and agree. The patient is feeling better. She is tolerating a diet. Her ostomy is functioning. Pain is better. VSS LABS- stable ABD- soft decrease in the right lateral erythema. Incisions are clean. PLAN- will DC to home. Will send on kefex. Horace Elder MD * Progress Notes - Non-Billable - Valerie Humphreys CRNP - 05/20/2023 8:19 AM EDT PROGRESS NOTE - General Surgery Discharge Transition [facility] [address] Name: Gilma Lantigua Location: [facility] B633/B Date: 05/20/2023 Time: 8:19 AM Admitting Diagnosis: parastomal hernia PROCEDURE: robotic sugarbaananya Estimated Discharge Date: 05/20/2023 Subjective: Gilma was resting in bed comfortably. Tolerating diet, has tolerated a regular diet- denied nausea/vomiting. Notes a diminished appetite, but no longer nauseated. Incisional pain controlled with current therapy. Ambulating without any difficulty, with a a . Voiding without difficulty. (+) ostomy function- pouch changed this AM No Lovenox at discharge per resident She will be transported home by her Wants new scripts sent to [facility]. Review of Systems: Constitutional: (+) weakness, (+) fatigue, and (-) otherwise negative Abdominal/GI: (-) dysphagia, (-) heartburn, (-) nausea, and (-) vomiting Female : (-) dysuria Most Recent Vital Signs: BP: 106 mmHg/46 mmHg (05/20/23 0745) Pulse: 94 (05/20/23744) Temp: 36.61 C (05/20/23744) Temp Summary: Temp Min: 36.6 C (97.9 F) Max: 37.1 C (98.8 F) SpO2: 97 % (05/20/23744) O2 flow rate: 0 L/MIN (05/16/23 1523) Supplemental O2 Delivery: Room Air, None (05/20/23744) Constitutional: no acute distress In recliner appears comfortable- at bedside. Notes some increased abdominal pain. Lab and Radiology: Pending results: No results pending Discharge Preparation: Consultation: No pending consultations to be completed Discharge Medication Plans: Pain Management: Acetaminophen and Oxycodone DVT Needs: None GI: None Antibiotics: Cipro- called patient's pharmacy - they confirmed sh ehas been prescribed Cipro twice in the past year Stool Softener: None Anticipated Diet at Discharge: Regular Disposition / Needs Post Discharge: Home Return Appointments Planned: Surgeon in 2 weeks Reviewed d/c instructions with patient and answered all patient questions. Patient verbalized understanding and agreed to call if there is any concern. * Care Plan - Annette Guan RN - 05/20/2023 12:25 AM EDT Clinical Goal(s): patient will remain free from nausea (05/19/23 1100) Possible barriers to meeting goal(s)/advancing plan of care: post surgical bowel resection Stability of the patient: Moderately stable - low risk of patient condition declining or worsening Summary regarding today's goal(s): Met: Patient has not c/o nausea, is having pain this shift 05/19/23 Recommendations: Hourly rounding, call bingham within reach, assess for pain, floor free from clutter. * Ancillary Progress Note - Frank Adams RN - 05/19/2023 9:05 AM EDT CARE MANAGEMENT - ADULT TRANSITION NOTE [facility]-[address] [address] Name: Gilma Lantigua Location: [facility] B633/B Date: 05/19/2023 Time: 9:05 AM Risk Stratification Risk Stratification Psycho Social / Medical Concerns Identified: Adjustment to illness/injury (05/16/23 1210) Accessed Neighbor[employer] to connect patients to social care resources: No (05/16/23 1210) OBRA or OPTIONS needed for placement: No (05/16/23 1210) Readmission Risk Score: 16.36 (05/19/23 0801) AM-PAC Score With Stairs : 23 (05/19/23 0600) Caregiver Information Patient Contacts Name Relation Home Work Mobile Thien Lantigua Spouse [phone] Walter Lantigua Adult Child [phone] ChrisZahra cooper Adult Child [phone] Transition of Care Checklist Narrative: Pt discussed in IDT Rounds today. Surgery patient discussed with Yann ESCOBAR this morning. Possible discharge to home today. Surgery patient discussed with Valerie ESCOBAR this morning. Pt with emesis this morning- no discharge today. Possible de-escalate diet today. Please contact CM with any further concerns. Anticipated Transportation at Discharge: family Patient/Family Expectations: home Transition Planning Additional Considerations: none Care Management will continue to monitor and assist with discharge planning needs * Progress Notes - Non-Billable - Valerie Humphreys CRNP - 05/19/2023 9:04 AM EDT PROGRESS NOTE - General Surgery Discharge Transition [address] [address] Name: Gilma Lantigua Location: [address] Date: 05/19/2023 Time: 9:04 AM Admitting Diagnosis: parastomal hernia PROCEDURE: robotic sugarbaker Estimated Discharge Date: 05/20/2023 pending nausea improvement Subjective: Gilma was nauseated- vomited right before I entered the room- Dr. Elder aware. Possible discharge tomorrow pending nausea. Per Dr. Elder will start Doxycycline due to erythema around incision. at bedside- will transport home at discharge. Will have medications delivered bedside. Most Recent Vital Signs: BP: 101 mmHg/40 mmHg (05/19/23722) Pulse: 95 (05/19/23722) Temp: 37 C (05/19/23722) Temp Summary: Temp Min: 36.8 C (98.2 F) Max: 38 C (100.4 F) SpO2: 99 % (05/19/23722) O2 flow rate: 0 L/MIN (05/16/23 1523) Supplemental O2 Delivery: Room Air, None (05/19/23722) * Progress Notes - Post-Op Global - Yaron Davis MD - 05/19/2023 6:47 AM EDT PROGRESS NOTE - General Surgery [address] [address] Name: Gilma Lantigua Location: [facility] B633/B Date: 05/19/2023 Time: 6:47 AM DIAGNOSIS: parastomal hernia PROCEDURE: robotic sugarbaker DATE OF SURGERY: 05/15/23 POST OP DAY: 4 Days Post-Op SUBJECTIVE: No issues overnight. Tolerating regular diet. Ostomy functioning. Pain well controlled.Some small hematomas around the incisions. Ambulating. Afebrile, VSS. OBJECTIVE: Most Recent Vital Signs: BP: 97 mmHg/43 mmHg (05/19/23 0310) Pulse: 94 (05/19/23309) Temp: 37.5 C (05/19/23309) Temp Summary: Temp Min: 36.7 C (98.1 F) Max: 38 C (100.4 F) SpO2: 95 % (05/19/23309) O2 flow rate: 0 L/MIN (05/16/23 1523) Supplemental O2 Delivery: Room Air, None (05/19/23309) Vital Signs Last 24 Hours: Systolic BP: Most Recent Systolic BP Av.1 mmHg Min: 89 mmHg Max: 108 mmHg Temperature: Most Recent Temperature Av.3 C Min: 36.72 C Max: 38 C Pulse: Pulse Av Min: 81 Max: 102 Respirations: Resp Av Min: 18 Max: 18 SpO2: SpO2 Av.8 % Min: 95 % Max: 100 % In / Out Past 24 Hrs: Intake/Output Summary (Last 24 hours) at 05/19/2023 0647 Last data filed at 05/19/2023 0600 Gross per 24 hour Intake 99.56 ml Output 2025 ml Net -1925.44 ml Physical Exam: Gen: no acute distress Neck: supple CV: RRR, no MRG Chest: nonlabored breathing, CTAB Abdomen: very soft, nondistended, TTP diffusely, ostomy with liquid stool in the bag, robotic incisions w dermabond c/d/INeuro: AOX3 Extremities: warm, well perfused, no pitting edema LABS: Labs reviewed as indicated below: BMP Lab results within last 7 days (see chart for full results) Units 05/18/23 0757 05/17/23 0750 05/16/23 0654 Sodium mmol/L 137 136 134* Potassium mmol/L 4.2 4.0 3.8 Chloride mmol/L 105 105 104 CO2 mmol/L 24 23 24 BUN mg/dL 14 13 15 Creatinine mg/dL 0.8 0.8 0.9 CBC Lab results within last 7 days (see chart for full results) Units 05/18/23 0757 05/17/23 0750 05/16/23 0653 HGB g/dL 11.6* 11.4* 10.7* HCT % 35.7* 34.4* 31.6* WBC K/uL 5.04 5.50 4.56 PLT K/uL 91* 82* 81* IMAGING: No new imaging IMPRESSION: Principal Problem: Parastomal hernia without obstruction or gangrene Resolved Problems: * No resolved hospital problems. * Gilma Lantigua is a 62 year old female with Parastomal hernia s/p Robotic Sugarbaker by Dr. Elder on 05/15/2023. Uncomplicated post op course. PLAN: Diet: regular Analgesia: tylenol, oxy 5/10 PRN, dilaudid breakthrough, soma PRN Antibiotics: periop mefoxin complete IVF: isolyte off Nausea: Zofran PRN Respiratory: Encourage IS. RPDP Activity: encourage OOB Home Medications: RESTARTED: levoxyl, prilosec, klonopin prn, tobradex eye drops DVT/PE ppx: SCDs, TEDs , & lovenox Bowel Regimen: Colace and Senna Wheeler: N/A GI ppx: diet by mouth and Proton Pump Inhibitor Drains/Lines: PIVs Dispo: med surg, d/c 05/18 Patient seen and discussed with Associated attestation - Horace Elder MD - 05/19/2023 7:14 PM EDT I saw and evaluated the patient today. I have reviewed the trainee note and agree. The patient has some post op pain. She had some nausea and vomiting this am. Ostomy is functioning. VSS LABS- WBC 3.8 baseline ABD- soft ostomy pink with some gas and liquid in the bag. Some erythema on the right lateral abdominal wall. PLAN- OOB. Keep today will not DC. Will start doxycycline. Horace Elder MD * Care Plan - Annette Guan RN - 05/19/2023 1:23 AM EDT Clinical Goal(s): pt will report managed pain (05/18/23 0700) Possible barriers to meeting goal(s)/advancing plan of care: Post surgical patient with ostomy. Stability of the patient: Moderately stable - low risk of patient condition declining or worsening Summary regarding today's goal(s): Met: Patient is reporting managed pain with taking prescribed medications 05/18/23 Recommendations: Hourly rounding, call bingham within reach, floor free from clutter, assessing pain. * Care Plan - Elijah Espino RN - 05/18/2023 6:01 PM EDT Clinical Goal(s): pt will report managed pain (05/18/23 0700) Possible barriers to meeting goal(s)/advancing plan of care: pt reporting pain on ambulation Stability of the patient: Moderately stable - low risk of patient condition declining or worsening Summary regarding today's goal(s): Met: pt reported managed pain Recommendations: continue plan of care * Care Plan - Jovan Peter RN - 05/18/2023 5:09 AM EDT Clinical Goal(s): patient will have managed pain (05/17/23 2300) Possible barriers to meeting goal(s)/advancing plan of care: pt condition Stability of the patient: Moderately stable - low risk of patient condition declining or worsening Summary regarding today's goal(s): Met: pain managed with current regimen Recommendations: frequent rounding * Care Plan - Elijah Espino RN - 05/17/2023 3:58 PM EDT Clinical Goal(s): pt will ambulate 3x this shift (05/17/23 0700) Possible barriers to meeting goal(s)/advancing plan of care: pain Stability of the patient: Moderately stable - low risk of patient condition declining or worsening Summary regarding today's goal(s): Met: patient ambulated 3x this shift, 1x in room, 2x in bautista Recommendations: continue plan of care, ambulate patient as tolerated * Care Plan - Freida Schroeder RN - 05/17/2023 5:40 AM EDT Clinical Goal(s): PT will remain free of emesis this shift (05/16/232206) Possible barriers to meeting goal(s)/advancing plan of care: Emesis and nausea frequently on previous shift Stability of the patient: Moderately stable - low risk of patient condition declining or worsening Summary regarding today's goal(s): Met: Goal met, PT had nausea but did not have emesis occur Recommendations: Continue scheduled nausea medication and PRN before pain medication * Ancillary Progress Note - Kaitlin Schneider, PT - 05/16/2023 1:45 PM EDT Gil[place] Lantigua [id number] [facility] [facility] [place] B[facility]B 05/16/2023 2:07 PM 62 year old PT Attempted to see patient for PT evaluation. Patient declined at this time due to nausea and pain. Will complete evaluation as able. * Ancillary Progress Note - Magaly Bustamante OTR/L - 05/16/2023 1:45 PM EDT Attempted to see pt for OT evaluation, however pt declining to participate, secondary to c/o abdominal pain. Will attempt as able. * Ancillary Progress Note - Shannan Miguel RN - 05/16/2023 12:11 PM EDT CARE MANAGEMENT - ADULT INITIAL SCREENING [facility] [address] Name: Gilma Lantigua Location: [facility] B633/B Date: 05/16/2023 Time: 12:11 PM Discussed patient with the interdisciplinary care team. This District Court Justice performed a chart review and met with pt at bedside to complete admission screen and assessed needs for transition planning. The aged or disabled care worker role and services were explained and emotional support was provided. Chief Complaint: No chief complaint on file. Prior Living Arrangements What was your living situation prior to admission/observation?: Independently;With Spouse () Living Quarters: House (05/16/231209) Number of steps to enter living quarters:: 2 (05/16/231209) Do you have serious difficulty walking or climbing stairs? (5 years old or older): No (05/15/23 180) History of falling: No (05/16/23599) Prior Level of Functioning Describe the patient's ability prior to admission/observation to perform ADLs: Performs independently (05/16/231209) Describe the patient's mobility status prior to admission: Patient ambulates independently;Patient can sit up in bed;Patient is able to sit on bedside (05/16/231209) Patient uses assistive device: No (05/16/231209) Caregiver Information Patient Contacts Name Relation Home Work Mobile Thien Lantigua Spouse [phone] ChrisWalter cooper Adult Child [phone] ChrisZahra cooper Adult Child [phone] Risk Stratification/Psychosocial/Care Gaps Risk Stratification Psycho Social / Medical Concerns Identified: Adjustment to illness/injury (05/16/231209) Accessed Neighborly to connect patients to social care resources: No (05/16/231209) OBRA or OPTIONS needed for placement: No (05/16/231209) Readmission Risk Score: 16.9 (05/16/23 1200) AM-PAC Score With Stairs : 14 (05/16/23 0600) Prior to Admission Services Services Prior to Admission COMBINATION WELDER APPRENTICE Services (Services received within the last 30 days with exception, Psych within last two years): N/A (05/16/231209) [place] Dept. 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 Pt has 2 steps toenter her home and as per the pt she does not have any difficulty with steps. Pt does not have any DME or home O2 in her home. As per the pt she is independent, drives and has support. Pt did not have a prior SNF. Pt did previously have HH services. For further screening information, please refer to the Care Management flow document. * Ancillary Progress Note - Lou Zamora RRT-CARGO CHECKER - 05/16/2023 6:45 AM EDT PATIENT DRIVEN PROTOCOL - Respiratory Care Services [address] [address] Name: Gilma Lantigua Location: [facility] B633/B Date: 05/16/2023 Time: 6:45 AM Patient Driven Protocol Summary: Initial evaluation performed. This Treatment Plan and medications will be reviewed by the Primary Care Team for any contraindications. Respiratory Care Treatment Plan Pulmonary Volume Expansion Therapy: Incentive Spirometry PRN to prevent or treat alveolar consolidation and atelectasis. . Secretion Management Treatment: Flutter TherapyPRN to enhance mobilization of secretions. . The patient will be re-evaluated: No re-evaluation needed. Indications for treatment met. The Triage Level is: (Assessment Score = 0 - 5) Level 5. Triage Level Definitions: Level 1 Severe Respiratory/Airway Compromise Level 2 Moderate Respiratory/Airway Compromise or high risk for pulmonary complications Level 3 Mild Respiratory/Airway Compromise or moderate risk for pulmonary complications Level 4 Episodic Respiratory/Airway Compromise or low risk for pulmonary complications Level 5 No Respiratory/Airway Compromise Triage 1 Triage 2 Triage 3 Triage 4 Triage 5 greater than 20 16 - 20 11 - 15 6 - 10 0 - 5 Medical Record Assessment Clinical Findings Pulmonary Status: 0 - No Smoking or quit greater than 10 years ago Surgical Status: 2 - Lower Abdominal Chest X-Ray: 0 - Not Performed or performed greater than 3 days ago Assessment Score: 2 Patient Assessment Clinical Findings Respiratory Pattern: 0 - RR 12 - 20; Patient only gets breathless with strenuous exercise. Breath Sounds: 0 - Clear to auscultation Cough Effectiveness: 0 - Strong non-productive Sputum Production: 0 - No sputum production Level of Activity: 2 - Temporarily non-ambulatory O2 needed to keep SpO2 greater than or equal to 92%: 0 - Room Air Assessment Score: 2 Total Assessment Score: 4 Breath Sounds: Inspiratory and expiratory clear and diminished bilaterally.. Cough and Sputum: An effective cough produced no sputum... CXR: Not performed. Vital Signs: Resp: 14 (05/16/23599) Pulse: 70 (05/16/23599) Temp: 36.9 C (98.4 F) (05/16/23550) BP: 97/41 (05/16/23550) SpO2: 98 % (05/16/23599) PFT: Minimal Predicted IC: 1.08 L. Inspiratory capacity: 0.75 L. Primary Service: Surgery Purple. Admitting Diagnosis: Parastomal hernia without obstruction or gangrene [K43.5] Pulmonary Diagnosis: Former smoker . Prescriptions/Home Medications/Durable Medical Equipment: Patient denies. Recommended New home medications/durable medical equipment/outpatient pulmonary/sleep referral N/A. * Progress Notes - Post-Op Global - Luis Alberto Ramires MD - 05/16/2023 6:29 AM EDT PROGRESS NOTE - General Surgery [facility]-[address] [address] Name: Gilma Lantigua Location: [facility] B633/B Date: 05/16/2023 Time: 6:29 AM DIAGNOSIS: parastomal hernia PROCEDURE: robotic sugarbaker DATE OF SURGERY: 05/15/23 POST OP DAY: 1 Day Post-Op SUBJECTIVE: Overnight had some significant nausea. ZINC ETCHER started overnight. AF, VSS, on RA. Patient tolerating small amount of clears. Pain well controlled on current regimen. Only used ZINC ETCHER twice overnight. Voiding. Hasn't ambulated yet. No ostomy output yet. OBJECTIVE: Most Recent Vital Signs: BP: 97 mmHg/41 mmHg (05/16/23550) Pulse: 71 (05/16/23550) Temp: 36.89 C (05/16/23550) Temp Summary: Temp Min: 36.4 C (97.5 F) Max: 37.6 C (99.7 F) SpO2: 98 % (05/16/23 05) O2 flow rate: 0 L/MIN (05/16/23 05) Supplemental O2 Delivery: Room Air, None (05/16/23 0600) Vital Signs Last 24 Hours: Systolic BP: Most Recent Systolic BP Av.5 mmHg Min: 93 mmHg Max: 122 mmHg Temperature: Most Recent Temperature Av C Min: 36.39 C Max: 37.61 C Pulse: Pulse Av.6 Min: 69 Max: 104 Respirations: Resp Av.4 Min: 12 Max: 23 SpO2: SpO2 Av.7 % Min: 95 % Max: 100 % In / Out Past 24 Hrs: Intake/Output Summary (Last 24 hours) at 05/16/2023 06 Last data filed at 05/16/2023 0600 Gross per 24 hour Intake 3161 ml Output 975 ml Net 2186 ml Physical Exam: Gen: no acute distress Neck: supple CV: RRR, no MRG Chest: nonlabored breathing, CTAB Abdomen: soft, nondistended, ostomy with mild sang output, robotic incisions w dermabond c/d/I, incisions tenderness and mild pain around ostomy Neuro: AOX3 Extremities: warm, well perfused, no pitting edema LABS: Labs reviewed as indicated below: BMP Lab results within last 7 days (see chart for full results) Units 05/15/23 1323 Sodium mmol/L 139 Potassium mmol/L 4.1 Chloride mmol/L 104 CO2 mmol/L 25 BUN mg/dL 17 Creatinine mg/dL 0.8 CBC Lab results within last 7 days (see chart for full results) Units 05/15/23 1323 HGB g/dL 13.0 HCT % 38.8 WBC K/uL 3.69* PLT K/uL 96* IMAGING: No new imaging IMPRESSION: Principal Problem: Parastomal hernia without obstruction or gangrene Resolved Problems: * No resolved hospital problems. * Gilma Lantigua is a 62 year old female with Parastomal hernia s/p Robotic Sugarbaker by Dr. Elder on 05/15/2023. Uncomplicated post op course. PLAN: -AROBF, will advance diet once ostomy is productive Diet: CLD Analgesia: tylenol, oxy 5/10 PRN, dilaudid breakthrough, soma PRN Antibiotics: periop mefoxin complete IVF: isolyte off Nausea: Zofran PRN Respiratory: Encourage IS. RPDP Activity: encourage OOB Home Medications: RESTARTED: levoxyl, prilosec, klonopin prn, tobradex eye drops DVT/PE ppx: SCDs, TEDs , & lovenox Bowel Regimen: Colace and Senna Wheeler: N/A GI ppx: diet by mouth and Proton Pump Inhibitor Drains/Lines: PIVs Dispo: SORU, med surg Patient seen and will be discussed w Dr Lynda Ramires MD, PGY-3 General Surgery [facility] Associated attestation - Narcisa Howell MD - 05/16/2023 2:51 PM EDT I saw and evaluated the patient today. I have reviewed the trainee note and agree. Gilma Lantigua is a 62 year old woman who is now POD 1 s/p robotic sugarbaker parastomal hernia repair. Afebrile, vitals stable overnight on room air, no acute events. Having some pain and nausea today, tolerable with medications. Also having difficulty tolerating PO pills this afternoon. Abdomen soft, appropriately tender to palpation, no rebound / guarding, incisions clean / dry / intact. No ostomy output reported yet. Ambulating to bathroom, voiding without difficulty. AM labs reviewed, no leukocytosis. Hgb 10.7 today from 13.0 yesterday - no current signs / symptoms of active bleeding, likely dilutional / equilibration, but will trend. -Pain / nausea control as needed -Clear liquid diet, await return of bowel function - advised patient to take it slow -Encourage OOB / ambulation, abdominal binder to be worn with activity -Further plan as below * Progress Notes - Non-Billable - Kathy Pacheco, - 05/15/2023 6:55 PM EDT PROGRESS NOTE - General Surgery [facility]-[address] [address] Name: Gilma Lantigua Location: OR [facility]/OR Date: 05/15/2023 Time: 6:55 PM DIAGNOSIS: Parastomal hernia PROCEDURE: Robotic Sugarbaker DATE OF SURGERY: 05/15/2023 POST OP DAY: 0 - POC SUBJECTIVE: Gilma Lantigua seen at bedside for postop check. Patient vomiting after sitting up in bed but did not have preceding nausea. Was about to receive zofran and pain medication when being seen at bedside. Reports abd pain after vomiting. Has voided since surgery. Has not been OOB. OBJECTIVE: Physical Exam: BP: 106 mmHg/56 mmHg (05/15/231834) Pulse: 78 (05/15/231834) Temp: 36.39 C (05/15/231829) Temp Summary: Temp Min: 36.4 C (97.5 F) Max: 37.2 C (99 F) SpO2: 99 % (05/15/231834) O2 flow rate: 0 L/MIN (05/15/231829) Supplemental O2 Delivery: Room Air, None (05/15/231829) Constitutional: conversant Head: normocephalic, atraumatic Eyes: sclera and conjunctiva normal Neck: trachea midline CV: warm and well perfused Chest: symmetric and normal respiratory effort Abdomen: soft, non distended, no guarding or rebound. Appropriately tender to palpation Surgical site: ostomy bright red without output in appliance, surgical incision sites c/d/I with overlying dermabond Extremities: no edema, no cyanosis Skin: warm, dry Neuro: alert,conversant LABS: Labs reviewed as indicated below: Postop labs not ordered CBC Lab results within last 7 days (see chart for full results) Units 05/15/23 1323 WBC K/uL 3.69* HGB g/dL 13.0 HCT % 38.8 PLT K/uL 96* BMP Lab results within last 7 days (see chart for full results) Units 05/15/23 1323 Sodium mmol/L 139 Potassium mmol/L 4.1 Chloride mmol/L 104 CO2 mmol/L 25 BUN mg/dL 17 Creatinine mg/dL 0.8 Glucose mg/dL 90 CA, Mg, Phos Lab results within last 7 days (see chart for full results) Units 05/15/23 1323 Calcium mg/dL 9.6 IMAGING: No imaging results in the last 24 hours IMPRESSION: Principal Problem: Parastomal hernia without obstruction or gangrene Resolved Problems: * No resolved hospital problems. * Gilma Lantigua is a 62 year old female with Parastomal hernia s/p Robotic Sugarbaker by Dr. Elder on 05/15/2023. Patient is stable post-op. PLAN: Diet: CLD Analgesia: tylenol, oxy 5/10 PRN, soma PRN Antibiotics: periop mefoxin complete IVF: isolyte @ 100mL/hr Nausea: Zofran PRN Respiratory: Encourage IS. RPDP Activity: encourage OOB Home Medications: RESTARTED: levoxyl, prilosec, klonopin prn, tobradex eye drops DVT/PE ppx: SCDs, TEDs , & lovenox Bowel Regimen: Colace and Senna Wheeler: N/A GI ppx: diet by mouth and Proton Pump Inhibitor Drains/Lines: PIVs Dispo: SORU, med surg Kathy Pacheco DO Vascular Surgery Resident PGY1 [facility] GENERAL SURGERY 05/15/2023 documented in this encounter Plan of Treatment Upcoming Encounters Date Type Department Care Team (Late st Contact Info) Description 06/05/2023 11:00 AM EDT [facility] [address] [place] [address] Horace Elder MD [address] [place] [address] Health Maintenance Due Date Last Done Comments [...] ( season) 2022 Influenza Vaccine (FLU shot) (#1) 2022 Colonoscopy 09/14/2030 09/14/2020, 08/31, 07/12/2019, Additional history [...] this encounter Medical Devices Implanted Type Area Flatcar Whacker Device Identifier Shelf Expiration Date Model / Serial / Lot Patch Tissue 10x15 [id number] - [id number] Implanted:Qty : 1 on 05/15/2023 by Horace Elder MD at OR [facility] N/A: Abdomen [employer] [id number] 10/06/2027 [id number] / [id number] / [id number] Mesh Capsure Fixation 30 - [id number] Implanted:Qty : 1 on 05/15/2023 by Horace Elder MD at OR [facility] CR BARD : DAVOL 05/28/2024 [id number] / / [id number] documented as of this encounter Procedures Procedure Name Priority Date/Time Associated Diagnosis Comments BASIC METABOLIC PANEL Routine 05/20/2023 5:27 AM EDT CBC Routine 05/20/2023 5:27 AM EDT BASIC METABOLIC PANEL Routine 05/19/2023 7:25 AM EDT CBC Routine 05/19/2023 7:25 AM EDT BASIC METABOLIC PANEL Routine 05/18/2023 7:57 AM EDT CBC Routine 05/18/2023 7:57 AM EDT BASIC METABOLIC PANEL Routine 05/17/2023 7:50 AM EDT CBC Routine 05/17/2023 7:50 AM EDT BASIC METABOLIC PANEL Routine 05/16/2023 6:54 AM EDT CBC Routine 05/16/2023 6:53 AM EDT SARS-COV-2 (COVID-19), NAAT STAT 05/15/2023 6:51 PM EDT GLUCOSE METER, POINT OF CARE RAHUL 05/15/2023 6:22 PM EDT GLUCOSE METER, POINT OF CARE RAHUL 05/15/2023 3:58 PM EDT RPR AA HERNIA RECR 3-10 CM REDUCIBLE 05/15/2023 1:41 PM EDT Parastomal hernia without obstruction or gangrene GLUCOSE METER, POINT OF CARE RAHUL 05/15/2023 1:25 PM EDT BASIC METABOLIC PANEL STAT 05/15/2023 1:23 PM EDT TYPE AND SCREEN Routine 05/15/2023 1:23 PM EDT CBC Routine 05/15/2023 1:23 PM EDT documented in this encounter Results * BASIC METABOLIC PANEL (05/20/2023 5:27 AM EDT) [facility] Signature BUN 17 6 - 20 mg/dL 05/20/2023 6:32 AM EDT LABORATORY [facility] Creatinine 0.7 0.5 - 1.0 mg/dL 05/20/2023 6:32 AM EDT LABORATORY [facility] Estimated Glomerular Filtration Rate >90 >=60 mL/min 05/20/2023 6:32 AM EDT LABORATORY [facility] Comment:eGFR is calculated b ased on the CKD-EPI 2020 equation Sodium 136 135 - 146 mmol/L 05/20/2023 6:32 AM EDT LABORATORY [facility] Potassium 3.7 3.5 - 5.1 mmol/L 05/20/2023 6:32 AM EDT LABORATORY [facility] Chloride 103 98 - 107 mmol/L 05/20/2023 6:32 AM EDT LAB[facility]ATORY [facility] CO2 24 22 - 32 mmol/L 05/20/2023 6:32 AM EDT LABORATORY [facility] Anion Gap 9 7 - 15 mmol/L 05/20/2023 6:32 AM EDT LABORATORY [facility] Glucose 104 70 - 120 mg/dL 05/20/2023 6:32 AM EDT LABORATORY [facility] Calcium 9.3 8.4 - 10.2 mg/dL 05/20/2023 6:32 AM EDT LABORATORY C Blood Venous blood specimen / Unknown Venipuncture / Unknown 05/20/2023 5:27 AM EDT 05/20/2023 5:32 AM EDT Yaron Davis MD LAB BLOOD OR DERABLES Performing Organization Address City/State/[facility] Co de Phone Number LABORATORY [facility] [address], [place] [id number] * (ABNORMAL) CBC (05/20/2023 5:27 AM EDT) WBC 3.83(L) 4.00 - 10.80 K/uL 05/20/2023 5:46 AM EDT LABORATORY [facility] RBC 3.76 3.85 - 5.15 M/uL 05/20/2023 5:46 AM EDT LABORATORY [facility] HGB 11.6(L) 12.0 - 15.3 g/dL 05/20/2023 5:46 AM EDT LABORATORY [facility] HCT 34.9(L) 36.0 - 45.2 % 05/20/2023 5:46 AM EDT LABORATORY [facility] MCV 92.8 81.5 - 97.5 fL 05/20/2023 5:46 AM EDT LABORATORY [facility] MCH 30.9 27.0 - 34.0 pg 05/20/2023 5:46 AM EDT LABORATORY [facility] MCHC 33.2 32.0 - 36.0 g/dL 05/20/2023 5:46 AM EDT LAB[facility]ATORY [facility] RDW 13.5 11.5 - 15.5 % 05/20/2023 5:46 AM EDT LABORATORY [facility] PLT 114(L) 140 - 400 K/uL 05/20/2023 5:46 AM EDT LAB[facility]ATORY [facility] MPV 9.4 6.6 - 11.1 fL 05/20/2023 5:46 AM EDT LABORATORY [facility] nRBCs 0 <=0 /100 WBCs 05/20/2023 5:46 AM EDT LABORATORY [facility] Blood Venous blood specimen / Unknown Venipuncture / Unknown 05/20/2023 5:27 AM EDT 05/20/2023 5:32 AM EDT Yaron Davis MD LAB BLOOD OR DERABLES LAB[facility]AT[facility] [address] [place] [address] * (ABNORMAL) CBC (05/19/2023 7:25 AM EDT) WBC 3.88(L) 4.00 - 10.80 K/uL 05/19/2023 8:03 AM EDT LABORATORY [facility] RBC 3.55 3.85 - 5.15 M/uL 05/19/2023 8:03 AM EDT LABORATORY [facility] HGB 11.0(L) 12.0 - 15.3 g/dL 05/19/2023 8:03 AM EDT LABORATORY [facility] HCT 32.9(L) 36.0 - 45.2 % 05/19/2023 8:03 AM EDT LABORATORY [facility] MCV 92.7 81.5 - 97.5 fL 05/19/2023 8:03 AM EDT LABORATORY [facility] MCH 31.0 27.0 - 34.0 pg 05/19/2023 8:03 AM EDT LABORATORY [facility] MCHC 33.4 32.0 - 36.0 g/dL 05/19/2023 8:03 AM EDT LABORATORY [facility] RDW 13.4 11.5 - 15.5 % 05/19/2023 8:03 AM EDT LABORATORY [facility] PLT 108(L) 140 - 400 K/uL 05/19/2023 8:03 AM EDT LABORATORY [facility] MPV 9.6 6.6 - 11.1 fL 05/19/2023 8:03 AM EDT LABORATORY [facility] nRBCs 0 <=0 /100 WBCs 05/19/2023 8:03 AM EDT LABORATORY [facility] Blood Venous blood specimen / Unknown Venipuncture / Unknown 05/19/2023 7:25 AM EDT 05/19/2023 7:54 AM EDT Valeire ESCOBAR LAB BLOOD ORDERABL ES LABORATORY [facility] [address] [place] [address] * BASIC METABOLIC PANEL (05/19/2023 7:25 AM EDT) BUN 14 6 - 20 mg/dL 05/19/2023 8:22 AM EDT LABORATORY [facility] Creatinine 0.8 0.5 - 1.0 mg/dL 05/19/2023 8:22 AM EDT LABORATORY [facility] Estimated Glomerular Filtration Rate >90 >=60 mL/min 05/19/2023 8:22 AM EDT LABORATORY [facility] Comment:eGFR is calculated b ased on the CKD-EPI 2020 equation Sodium 135 135 - 146 mmol/L 05/19/2023 8:22 AM EDT LABORATORY [facility] Potassium 3.6 3.5 - 5.1 mmol/L 05/19/2023 8:22 AM EDT LABORATORY [facility] Chloride 103 98 - 107 mmol/L 05/19/2023 8:22 AM EDT LABORATORY [facility] CO2 24 22 - 32 mmol/L 05/19/2023 8:22 AM EDT LABORATORY [facility] Anion Gap 8 7 - 15 mmol/L 05/19/2023 8:22 AM EDT LABORATORY [facility] Glucose 100 70 - 120 mg/dL 05/19/2023 8:22 AM EDT LABORATORY [facility] Calcium 9.0 8.4 - 10.2 mg/dL 05/19/2023 8:22 AM EDT LABORATORY [facility] Blood Venous blood specimen / Unknown Venipuncture / Unknown 05/19/2023 7:25 AM EDT 05/19/2023 7:54 AM EDT Yaron Davis MD LAB BLOOD OR DERABLES LAB[facility]AT[facility] [address] [place] [address] * (ABNORMAL) CBC (05/18/2023 7:57 AM EDT) WBC 5.04 4.00 - 10.80 K/uL 05/18/2023 8:22 AM EDT LABORATORY [facility] RBC 3.74 3.85 - 5.15 M/uL 05/18/2023 8:22 AM EDT LABORATORY [facility] HGB 11.6(L) 12.0 - 15.3 g/dL 05/18/2023 8:22 AM EDT LABORATORY [facility] HCT 35.7(L) 36.0 - 45.2 % 05/18/2023 8:22 AM EDT LAB[facility]ATORY [facility] MCV 95.5 81.5 - 97.5 fL 05/18/2023 8:22 AM EDT LABORATORY [facility] MCH 31.0 27.0 - 34.0 pg 05/18/2023 8:22 AM EDT LABORATORY [facility] MCHC 32.5 32.0 - 36.0 g/dL 05/18/2023 8:22 AM EDT LABORATORY [facility] RDW 13.8 11.5 - 15.5 % 05/18/2023 8:22 AM EDT LABORATORY [facility] PLT 91(L) 140 - 400 K/uL 05/18/2023 8:22 AM EDT LABORATORY [facility] MPV 9.2 6.6 - 11.1 fL 05/18/2023 8:22 AM EDT LABORATORY [facility] nRBCs 0 <=0 /100 WBCs 05/18/2023 8:22 AM EDT LABORATORY [facility] Blood Venous blood specimen / Unknown Venipuncture / Unknown 05/18/2023 7:57 AM EDT 05/18/2023 8:09 AM EDT Yaron Davis MD LAB BLOOD OR DERABLES [facility] [address] [place] [address] * BASIC METABOLIC PANEL (05/18/2023 7:57 AM EDT) BUN 14 6 - 20 mg/dL 05/18/2023 8:41 AM EDT LABORATORY [facility] Creatinine 0.8 0.5 - 1.0 mg/dL 05/18/2023 8:41 AM EDT LABORATORY [facility] Estimated Glomerular Filtration Rate 81 >=60 mL/min 05/18/2023 8:41 AM EDT LABORATORY [facility] Comment:eGFR is calculated b ased on the CKD-EPI 2020 equation Sodium 137 135 - 146 mmol/L 05/18/2023 8:41 AM EDT LABORATORY [facility] Potassium 4.2 3.5 - 5.1 mmol/L 05/18/2023 8:41 AM EDT LABORATORY [facility] Chloride 105 98 - 107 mmol/L 05/18/2023 8:41 AM EDT LAB[facility]ATORY [facility] CO2 24 22 - 32 mmol/L 05/18/2023 8:41 AM EDT LABORATORY [facility] Anion Gap 8 7 - 15 mmol/L 05/18/2023 8:41 AM EDT LABORATORY [facility] Glucose 96 70 - 120 mg/dL 05/18/2023 8:41 AM EDT LABORATORY [facility] Calcium 8.9 8.4 - 10.2 mg/dL 05/18/2023 8:41 AM EDT LABORATORY [facility] Blood Venous blood specimen / Unknown Venipuncture / Unknown 05/18/2023 7:57 AM EDT 05/18/2023 8:09 AM EDT Yaron Davis MD LAB BLOOD OR DERABLES [facility] [address] [place] [address] * (ABNORMAL) CBC (05/17/2023 7:50 AM EDT) Pathologist [facility] WBC 5.50 4.00 - 10.80 K/uL 05/17/2023 8:27 AM EDT LABORATORY [facility] RBC 3.63 3.85 - 5.15 M/uL 05/17/2023 8:27 AM EDT LABORATORY GM HGB 11.4(L) 12.0 - 15.3 g/dL 05/17/2023 8:27 AM EDT LABORATORY [facility] HCT 34.4(L) 36.0 - 45.2 % 05/17/2023 8:27 AM EDT LABORATORY [facility] MCV 94.8 81.5 - 97.5 fL 05/17/2023 8:27 AM EDT LABORATORY GM MCH 31.4 27.0 - 34.0 pg 05/17/2023 8:27 AM EDT LABORATORY [facility] MCHC 33.1 32.0 - 36.0 g/dL 05/17/2023 8:27 AM EDT LABORATORY [facility] RDW 14.0 11.5 - 15.5 % 05/17/2023 8:27 AM EDT LABORATORY GM PLT 82(L) 140 - 400 K/uL 05/17/2023 8:27 AM EDT LABORATORY [facility] MPV 9.5 6.6 - 11.1 fL 05/17/2023 8:27 AM EDT LABORATORY [facility] nRBCs 0 <=0 /100 WBCs 05/17/2023 8:27 AM EDT LABORATORY [facility] Blood Venous blood specimen / Unknown Venipuncture / Unknown 05/17/2023 7:50 AM EDT 05/17/2023 8:15 AM EDT Yaron Davis MD LAB BLOOD OR DERABLES LABORATORY [facility] [address] [place] [address] * BASIC METABOLIC PANEL (05/17/2023 7:50 AM EDT) [facility] BUN 13 6 - 20 mg/dL 05/17/2023 8:44 AM EDT LABORATORY G[facility] Creatinine 0.8 0.5 - 1.0 mg/dL 05/17/2023 8:44 AM EDT LABORATORY [facility] Estimated Glomerular Filtration Rate 80 >=60 mL/min 05/17/2023 8:44 AM EDT LABORATORY [facility] Comment:eGFR is calculated b ased on the CKD-EPI 2020 equation Sodium 136 135 - 146 mmol/L 05/17/2023 8:44 AM EDT LABORATORY [facility] Potassium 4.0 3.5 - 5.1 mmol/L 05/17/2023 8:44 AM EDT LAB[facility]ATORY [facility] Chloride 105 98 - 107 mmol/L 05/17/2023 8:44 AM EDT LAB[facility]ATORY [facility] CO2 23 22 - 32 mmol/L 05/17/2023 8:44 AM EDT LAB[facility]ATORY [facility] Anion Gap 8 7 - 15 mmol/L 05/17/2023 8:44 AM EDT LABORATORY [facility] Glucose 92 70 - 120 mg/dL 05/17/2023 8:44 AM EDT LAB[facility]ATORY [facility] Calcium 8.5 8.4 - 10.2 mg/dL 05/17/2023 8:44 AM EDT LABORATORY C Blood Venous blood specimen / Unknown Venipuncture / Unknown 05/17/2023 7:50 AM EDT 05/17/2023 8:15 AM EDT Yaron Davis MD LAB BLOOD OR DERABLES LABORATORY [facility] [address] [place] [address] * (ABNORMAL) BASIC METABOLIC PANEL (05/16/2023 6:54 AM EDT) BUN 15 6 - 20 mg/dL 05/16/2023 7:43 AM EDT LABORATORY [facility] Creatinine 0.9 0.5 - 1.0 mg/dL 05/16/2023 7:43 AM EDT LABORATORY [facility] Estimated Glomerular Filtration Rate 75 >=60 mL/min 05/16/2023 7:43 AM EDT LAB[facility]ATORY [facility] Comment:eGFR is calculated b ased on the CKD-EPI 2020 equation Sodium 134(L) 135 - 146 mmol/L 05/16/2023 7:43 AM EDT LABORATORY [facility] Potassium 3.8 3.5 - 5.1 mmol/L 05/16/2023 7:43 AM EDT [facility] Chloride 104 98 - 107 mmol/L 05/16/2023 7:43 AM EDT [facility] CO2 24 22 - 32 mmol/L 05/16/2023 7:43 AM EDT [facility] Anion Gap 6(L) 7 - 15 mmol/L 05/16/2023 7:43 AM EDT [facility] Glucose 97 70 - 120 mg/dL 05/16/2023 7:43 AM EDT [facility] Calcium 8.4 8.4 - 10.2 mg/dL 05/16/2023 7:43 AM EDT [facility] Blood Venous blood specimen / Unknown Venipuncture / Unknown 05/16/2023 6:54 AM EDT 05/16/2023 7:15 AM EDT Yaron Davis MD LAB BLOOD [facility] [address] [place] [address] * (ABNORMAL) CBC (05/16/2023 6:53 AM EDT) WBC 4.56 4.00 - 10.80 K/uL 05/16/2023 7:24 AM EDT [facility] RBC 3.39 3.85 - 5.15 M/uL 05/16/2023 7:24 AM EDT [facility] HGB 10.7(L) 12.0 - 15.3 g/dL 05/16/2023 7:24 AM EDT [facility] HCT 31.6(L) 36.0 - 45.2 % 05/16/2023 7:24 AM EDT [facility] MCV 93.2 81.5 - 97.5 fL 05/16/2023 7:24 AM EDT [facility] MCH 31.6 27.0 - 34.0 pg 05/16/2023 7:24 AM EDT [facility] MCHC 33.9 32.0 - 36.0 g/dL 05/16/2023 7:24 AM EDT LABORATORY [facility] RDW 14.0 11.5 - 15.5 % 05/16/2023 7:24 AM EDT LABORATORY [facility] PLT 81(L) 140 - 400 K/uL 05/16/2023 7:24 AM EDT LABORATORY [facility] MPV 9.2 6.6 - 11.1 fL 05/16/2023 7:24 AM EDT LABORATORY [facility] nRBCs 0 <=0 /100 WBCs 05/16/2023 7:24 AM EDT LABORATORY [facility] Blood Venous blood specimen / Unknown Venipuncture / Unknown 05/16/2023 6:53 AM EDT 05/16/2023 7:15 AM EDT Yaron Davis MD LAB BLOOD OR DERABLES LABORATORY [facility] [address] [place] [address] * SARS-COV-2 (COVID-19), NAAT (05/15/2023 6:51 PM EDT) SARS-CoV-2 (COVID-19) Result Negative Negative 05/15/2023 8:52 PM EDT LABORATORY [facility] Comment: 2019 Novel Coronavirus not detected. This express test was developed and its performance characteristics determined by [facility]. It has not been cleared or approved by the U.S. Food and Drug Administration (FDA). FDA does not require this test to go thru premarket FDA review. This test is used for clinical purposes. It should not be regarded as investigational or for research. This laboratory is certified under the Clinical Laboratory Improvement Amendments (CLIA) as qualified to perform high complexity clinical laboratory testing. This test is a nucleic acid amplification test (NAAT), a reverse transcriptase polymerase chain reaction (RT-PCR) test, or a Centers for Disease Control- acceptable equivalent. The test is performed in a high complexity Clinical Laboratory Improvement Amendments-(CLIA) certified laboratory. The test is acceptable for SARS-CoV-2 diagnosis, surveillance, and travel within the [place] and to most countries. Please check with local testing authorities about requirements before travel. The validation of bronchial specimens, tracheal aspirates, and sputum for this assay was developed and performance characteristics determined by [facility]. The validation of alternate specimen types has not been cleared or approved by the U.S. Food and Drug Administration (FDA). It has been determined that such clearance is not necessary. Upper Respiratory Mid-turbinate nasal swab / Unknown COVID19 Collection / Unknown 05/15/2023 6:51 PM EDT 05/15/2023 7:20 PM EDT Luis Alberto Ramires MD LAB MICRO - GENERAL ORDERABLES LABORATORY [facility] [address] [place] [address] * GLUCOSE METER, POINT OF CARE (05/15/2023 6:22 PM EDT) Glucose Meter 111 70 - 120 mg/dL 05/15/2023 6:26 PM EDT [facility] Blood Whole blood specimen / Unknown 05/15/2023 6:22 PM EDT 05/15/2023 6:26 PM EDT Horace Elder MD LAB POINT OF CARE TE ST DOCKED DEVICE UNSOLICITED RESULTS Performing Organization Address City/[facility] Co de Phone Number [facility] [address] [place] [address] * (ABNORMAL) GLUCOSE METER, POINT OF CARE (05/15/2023 3:58 PM EDT) Glucose Meter 125(H) 70 - 120 mg/dL 05/16/2023 7:36 AM EDT [facility] Blood Whole blood specimen / Unknown 05/15/2023 3:58 PM EDT 05/16/2023 7:36 AM EDT Horace Elder MD LAB POINT OF CARE TE ST DOCKED DEVICE UNSOLICITED RESULTS Performing Organization Address City/[facility]/ZIP Co de Phone Number [facility] [address] [place] [address] * GLUCOSE METER, POINT OF CARE (05/15/2023 1:25 PM EDT) Pathologist [facility] Glucose Meter 94 70 - 120 mg/dL 05/15/2023 2:06 PM EDT [facility] Blood Whole blood specimen / Unknown 05/15/2023 1:25 PM EDT 05/15/2023 2:06 PM EDT Horace Elder MD LAB POINT OF CARE TE ST DOCKED DEVICE UNSOLICITED RESULTS Performing Organization Address City/[facility]/ZIP Co de Phone Number [facility] [address] [place] [address] * TYPE AND SCREEN (05/15/2023 1:23 PM EDT) Pathologist [facility] ABO O 05/15/2023 2:29 PM EDT LABORATORY [facility] BLOOD BANK Rh Positive 05/15/2023 2:29 PM EDT LABORATORY [facility] BLOOD BANK Red Blood Cell Antibody Screen Negative 05/15/2023 2:29 PM EDT LABORATORY [facility] BLOOD BANK Specimen Expiration Date 05/18/2023 23:59 05/15/2023 2:29 PM EDT LABORATORY [facility] BLOOD BANK Blood Venous blood specimen / Unknown Venipuncture / Unknown 05/15/2023 1:23 PM EDT 05/15/2023 1:32 PM EDT Luis Alberto Ramires MD LAB BLOOD BANK TEST ORDERABLES Performing Organization Address City/[facility]/ZIP Co de Phone Number LABORATORY [facility] BLOOD BANK [address] [place] [address] * BASIC METABOLIC PANEL (05/15/2023 1:23 PM EDT) Pathologist [facility] BUN 17 6 - 20 mg/dL 05/15/2023 2:04 PM EDT LABORATORY [facility] Creatinine 0.8 0.5 - 1.0 mg/dL 05/15/2023 2:04 PM EDT LABORATORY [facility] Estimated Glomerular Filtration Rate 79 >=60 mL/min 05/15/2023 2:04 PM EDT LABORATORY [facility] Comment:eGFR is calculated b ased on the CKD-EPI 2020 equation Sodium 139 135 - 146 mmol/L 05/15/2023 2:04 PM EDT [facility] Potassium 4.1 3.5 - 5.1 mmol/L 05/15/2023 2:04 PM EDT [facility] Chloride 104 98 - 107 mmol/L 05/15/2023 2:04 PM EDT [facility] CO2 25 22 - 32 mmol/L 05/15/2023 2:04 PM EDT [facility] Anion Gap 10 7 - 15 mmol/L 05/15/2023 2:04 PM EDT [facility] Glucose 90 70 - 120 mg/dL 05/15/2023 2:04 PM EDT [facility] Calcium 9.6 8.4 - 10.2 mg/dL 05/15/2023 2:04 PM EDT [facility] Blood Venous blood specimen / Unknown Venipuncture / Unknown 05/15/2023 1:23 PM EDT 05/15/2023 1:34 PM EDT Luis Alberto Ramires MD LAB BLOOD ORDERABLES LAB[facility]ATORY [facility] [address] [place] [address] * (ABNORMAL) CBC (05/15/2023 1:23 PM EDT) WBC 3.69(L) 4.00 - 10.80 K/uL 05/15/2023 1:54 PM EDT [facility] RBC 4.25 3.85 - 5.15 M/uL 05/15/2023 1:54 PM EDT [facility] HGB 13.0 12.0 - 15.3 g/dL 05/15/2023 1:54 PM EDT [facility] HCT 38.8 36.0 - 45.2 % 05/15/2023 1:54 PM EDT [facility] MCV 91.3 81.5 - 97.5 fL 05/15/2023 1:54 PM EDT [facility] MCH 30.6 27.0 - 34.0 pg 05/15/2023 1:54 PM EDT [facility] MCHC 33.5 32.0 - 36.0 g/dL 05/15/2023 1:54 PM EDT LABORATORY [facility] RDW 13.8 11.5 - 15.5 % 05/15/2023 1:54 PM EDT LABORATORY [facility] PLT 96(L) 140 - 400 K/uL 05/15/2023 1:54 PM EDT LABORATORY [facility] MPV 9.4 6.6 - 11.1 fL 05/15/2023 1:54 PM EDT LABORATORY [facility] nRBCs 0 <=0 /100 WBCs 05/15/2023 1:54 PM EDT LABORATORY [facility] Blood Venous blood specimen / Unknown Venipuncture / Unknown 05/15/2023 1:23 PM EDT 05/15/2023 1:34 PM EDT Luis Alberto Ramires MD LAB BLOOD ORDERABLES LABORATORY [facility] [address] [place] [address] documented in this encounter Visit Diagnoses Diagnosis Parastomal hernia without obstruction or gangrene- Primary Hernia of unspecified site of abdominal cavity without mention of obstruction or gangrene documented in this encounter Administered Medications Inactive Administered Medications - up to 3 most recent administrations Medication Order MAR Action Action Date Dose Rate Site Acetaminophen (Ofirmev) inj 1,000 mg 1,000 mg, Intravenous, Q8H, 3 doses, First dose on Fri05/16/23 at 0100, Last dose on Fri05/16/23 at 1400, Administer over 15 Minutes, Administer undiluted over 15 minutes! NOTE: Maximum of 4000 mg per 24 hours of acetaminophen from all acetaminophen containing products., Indication: Patient is experiencing severe nausea and vomiting New Bag 05/16/2023 6:54 AM EDT 1,000 mg 400 mL/hr New Bag 05/16/2023 12:49 AM EDT 1,000 mg 400 mL/hr New Bag 05/16/2023 12:44 AM EDT 1,000 mg 400 mL/hr Acetaminophen (Ofirmev) inj 1,000 mg 1,000 mg, Intravenous, Q8H, 3 doses, First dose (after last reorder) on Fri05/16/23 at 0800, Last dose on Fri05/16/23 at 2200, Administer over 15 Minutes, Administer undiluted over 15 minutes! NOTE: Maximum of 4000 mg per 24 hours of acetaminophen from all acetaminophen containing products., Indication: Patient is experiencing severe nausea and vomiting New Bag 05/16/2023 8:34 AM EDT 1,000 mg 400 mL/hr Acetaminophen (Ofirmev) inj 1,000 mg 1,000 mg, Intravenous, Q6H, 4 doses, First dose (after last modification) on Fri05/16/23 at 1800, Last dose on Fri05/17/23 at 1200, Administer over 15 Minutes, Administer undiluted over 15 minutes! NOTE: Maximum of 4000 mg per 24 hours of acetaminophen from all acetaminophen containing products., Indication: Patient is experiencing severe nausea and vomiting New Bag 05/17/2023 11:47 AM EDT 1,000 mg 400 mL/hr New Bag 05/17/2023 6:00 AM EDT 1,000 mg 400 mL/hr Restarted 05/16/2023 11:09 PM EDT 4,000 mg/hr 400 mL/hr Acetaminophen (Ofirmev) inj 1,000 mg 1,000 mg, Intravenous, Q6H, 4 doses, First dose (after last reorder) on Fri05/18/23 at 0000, Last dose on Fri05/18/23 at 1800, Administer over 15 Minutes, Administer undiluted over 15 minutes! NOTE: Maximum of 4000 mg per 24 hours of acetaminophen from all acetaminophen containing products., Indication: Patient is experiencing severe nausea and vomiting New Bag 05/18/2023 6:35 AM EDT 1,000 mg 400 mL/hr New Bag 05/17/2023 11:51 PM EDT 1,000 mg 400 mL/hr Acetaminophen (Tylenol) tab 975 mg 975 mg, Oral, Q6H PRN Pain, Mild, Fever >38C(100.5F), Starting on 05/18/23 at 0730, Until Fri05/20/23 at 1903, Maximum of 4 grams (4000 mg) per day. Carisoprodol (Soma) tab 350 mg 350 mg, Oral, Q8H PRN Muscle spasms, Starting on Delores 05/15/23 at 1730, Until Fri05/20/23 at 1903, Post-op Given 05/16/2023 12:17 PM EDT 350 mg check patch placement order QSHIFT, First dose on Fri05/16/23 at 0000, Until Discontinued, Routine, Scopolamine (TRANSDERM SCOP) patch placement check clonazePAM (KlonoPIN) tab 0.5 mg 0.5 mg, Oral, TID PRN Anxiety, Starting on Fri05/15/23 at 1732, Until Fri05/20/23 at 1903 Given 05/16/2023 12:17 PM EDT 0.5 mg Docusate Sodium (Colace) cap 100 mg 100 mg, Oral, BID (.AM/PM), First dose on Fri05/15/23 at 2100, Until Discontinued, For oral administration ONLY, if route of administration is other than oral and alternative product must be ordered., Post-op Given 05/20/2023 7:45 AM EDT 100 mg Given 05/19/2023 9:50 PM EDT 100 mg Given 05/19/2023 8:18 AM EDT 100 mg doxycycline tab 100 mg 100 mg, Oral, Q12H, First dose on Fri05/19/23 at 2100, Last dose on Fri05/29/23 at 0900, For 10 days Given 05/20/2023 7:45 AM EDT 100 mg Given 05/19/2023 9:50 PM EDT 100 mg Enoxaparin (Lovenox) inj 40 mg 40 mg, Subcutaneous, Daily(AM), First dose on 05/17/23 at 1000, Until Discontinued, If patient is on warfarin, inform provider if daily INR value is 2 or greater! Given 05/20/2023 7:45 AM EDT 40 mg Abdom en Left Lower Given 05/19/2023 8:18 AM EDT 40 mg Ab domen Left Lower Given 05/18/2023 8:27 AM EDT 40 mg Ab domen Right Lower Gabapentin (Neurontin) cap 100 mg 100 mg, Oral, TID(AM/NOON/HS), First dose on Fri05/15/23 at 2200, Until Discontinued, Post-op Given 05/20/2023 5:19 AM EDT 100 mg Given 05/19/2023 9:50 PM EDT 100 mg Given 05/19/2023 12:17 PM EDT 100 mg hEParin inj 5,000 Units 5,000 Units, Subcutaneous, ONCALL, Starting on Fri05/15/23 at 1320, Until Delores 05/15/23 at 1326, For 1 dose, Pre-Op Given 05/15/2023 1:26 PM EDT 5,000 Units Abdomen Right Lower HYDROmorphone (Dilaudid) inj 0.2 mg 0.2 mg, IV Push, Q5 MIN PRN Pain, Severe, Starting on Delores 05/15/23 at 1521, Until Delores 05/15/23 at 1808, Administer only postop in PACU. Hold for respiratory rate less than 12. Administer up to a total of 1 mg., PACU Given 05/15/2023 6:02 PM EDT 0.2 mg Given 05/15/2023 5:47 PM EDT 0.2 mg Given 05/15/2023 5:35 PM EDT 0.2 mg HYDROmorphone (Dilaudid) inj 0.2 mg 0.2 mg, IV Push, Q5 MIN PRN Pain, Severe, Starting on Delores 05/15/23 at 1808, Until Delores 05/15/23 at 202, Administer only postop in PACU. Hold for respiratory rate less than 12. Administer up to a total of 2 mg., PACU Given 05/15/2023 6:37 PM EDT 0.2 mg Given 05/15/2023 6:13 PM EDT 0.2 mg HYDROmorphone (Dilaudid) inj 0.2 mg 0.2 mg, IV Push, ONCE, On Fri05/15/23 at 2145, For 1 dose Given 05/15/2023 9:58 PM EDT 0.2 mg HYDROmorphone (Dilaudid) inj 0.2 mg 0.2 mg, IV Push, Q4H PRN Pain, Breakthrough, Starting on Fri05/15/23 at 0200, Until Fri05/16/23 at 0054, For 3 doses Given 05/16/2023 12:45 AM EDT 0.2 mg HYDROmorphone (Dilaudid) inj 0.2 mg 0.2 mg, IV Push, Q4H PRN Pain, Breakthrough, Starting on Fri05/16/23 at 0641, Until Fri05/16/23 at 1232 Given 05/16/2023 10:34 AM EDT 0.2 mg HYDROmorphone (Dilaudid) inj 0.5 mg 0.5 mg, IV Push, Q4H PRN Pain, Breakthrough, Starting on Fri05/16/23 at 1232, Until Fri05/20/23 at 1903 Given 05/17/2023 7:28 PM EDT 0.5 mg Given 05/17/2023 12:29 PM EDT 0.5 mg Given 05/17/2023 4:48 AM EDT 0.5 mg HYDROmorphone 1 mg/mL ZINC ETCHER infusion ZINC ETCHER IV Infusion, Final Concentration = 1 mg/mL If Loading Dose (bolus dose) is not ordered by the physician, the nurse may give the first ZINC ETCHER dose as bolus after pain assessment. If pain score greater than or equal to 5 after one hour, increase ZINC ETCHER dose by 0.2 mg one time only and maintain at the increased dosage. Call physician if pain still not relieved after 2 hours of increased dosage. , Use CADD Pump with lock box! Nurse Change 05/16/2023 5:55 AM EDT New Bag 05/16/2023 4:48 AM EDT isolyte-S pH 7.4 infusion Intravenous, at 75 mL/hr, Plasma-LYTE 148, isolyte-S, and isolyte-S pH 7.4 are considered equivalent - including for MAR barcode scanning., CONTINUOUS, Starting on Fri05/15/23 at 1315, Until Fri05/15/23 at 1912, Pre-Op Restarted 05/15/2023 2:01 PM EDT Continue from Pre-Op 05/15/2023 1:59 PM EDT 75 mL/hr New Bag 05/15/2023 1:23 PM EDT 75 mL/hr isolyte-S pH 7.4 infusion Intravenous, at 100 mL/hr, Plasma-LYTE 148, isolyte-S, and isolyte-S pH 7.4 are considered equivalent - including for MAR barcode scanning., CONTINUOUS, Starting on Fri05/15/23 at 1815, Until Fri05/16/23 at 0022, Post-op New Bag 05/15/2023 6:15 PM EDT 100 mL/hr 100 mL/hr isolyte-S pH 7.4 infusion Intravenous, at 100 mL/hr, Plasma-LYTE 148, isolyte-S, and isolyte-S pH 7.4 are considered equivalent - including for MAR barcode scanning., CONTINUOUS, Starting on Fri05/16/23 at 0100, Until Fri05/16/23 at 0459, Post-op New Bag 05/16/2023 4:40 AM EDT 100 mL/hr 100 mL/hr levothyroxine (Levoxyl) tab 25 mcg 25 mcg, Oral, [id number], First dose on Fri05/16/23 at 0630, Until Discontinued Given 05/20/2023 5:19 AM EDT 25 mcg Given 05/19/2023 5:57 AM EDT 25 mcg Given 05/18/2023 6:31 AM EDT 25 mcg Lidocaine (Aspercreme) 4 % patch 1 Patch 1 Patch, Transdermal, Daily(AM), First dose (after last modification) on Fri05/16/23 at 0100, Until Discontinued, Apply patch for 12 hours then remove for 12 hours! Remove any Lidocaine patches the patient may currently be wearing prior to applying the new patch Patch Applied 05/20/2023 7:45 AM EDT 1 Patch Abdomen Right Upper Patch Applied 05/19/2023 8:18 AM EDT 1 Patch Abdomen Right Upper Patch Applied 05/18/2023 8:27 AM EDT 1 Patch Abdomen Right Lower melatonin tab 3 mg 3 mg, Oral, HS PRN Sleep, Starting on Fri05/15/23 at 1730, Until Fri05/20/23 at 1903, Post-op naloxone (Narcan) 0.4 MG/ML inj 0.08 mg 0.08 mg, IV Push, PRN Other, RR less than 8, Starting on Fri05/16/23 at 0050, Until Fri05/20/23 at 1903, Stop and call General Clerk, may repeat 0.04 mg IVP q1 minute NSS 0.9% 500 mL bolus infusion Intravenous, at 500 mL/hr Administer over 60 Minutes, Administer entire volume within 60 minutes or less., ONCE, 1 dose, On Fri05/16/23 at 0900 New Bag 05/16/2023 8:54 AM EDT 500 mL 50 0 mL/hr NSS 0.9% 500 mL bolus infusion Intravenous, at 500 mL/hr Administer over 60 Minutes, Administer entire volume within 60 minutes or less., ONCE, 1 dose, On Fri05/16/23 at 1130 Rate Verify 05/16/2023 11:52 AM EDT 5 00 mL/hr New Bag 05/16/2023 11:37 AM EDT 500 mL 500 mL/hr omeprazole (PriLOSEC) cap 20 mg 20 mg, Oral, Daily(AM), First dose on Fri05/16/23 at 0900, Until Discontinued, This med should NOT be Crushed or Chewed Given 05/20/2023 7:45 AM EDT 20 mg Given 05/19/2023 8:18 AM EDT 20 mg Given 05/18/2023 8:27 AM EDT 20 mg ondansetron (Zofran) inj 4 mg 4 mg, IV Push, Q6H PRN Nausea, Starting on Fri05/15/23 at 1521, Until Fri05/15/23 at 2025, For 1 day, Administer only during the first hour post-op in PACU., PACU Given 05/15/2023 5:54 PM EDT 4 mg ondansetron (Zofran) inj 4 mg 4 mg, IV Push, Q6H PRN Other, May use for nausea or vomiting if patient unable to take oral ondansetron, Starting on Fri05/15/23 at 1730, Until Fri05/20/23 at 1903, Post-op Given 05/19/2023 8:55 AM EDT 4 m g Given 05/16/2023 12:24 PM EDT 4 mg Given 05/15/2023 9:12 PM EDT 4 mg ondansetron ODT (Zofran) tab 4 mg 4 mg, On Tongue, Q6H PRN Nausea, Vomiting, Starting on Delores 05/15/23 at 1730, Until Fri05/20/23 at 1903, Post-op oxyCODONE (Oxy IR) tab 10 mg 10 mg, Oral, Q4H PRN Pain, Severe, Starting on Delores 05/15/23 at 1730, Until Fri05/16/23 at 0054, Hold for somnolence or respiratory rate less than 10, Post-op Given 05/15/2023 7:27 PM EDT 10 mg oxyCODONE (Oxy IR) tab 10 mg 10 mg, Oral, Q4H PRN Pain, Severe, Starting on Fri05/16/23 at 0641, Until Fri05/20/23 at 1903 Given 05/20/2023 2: 33 PM EDT 10 mg Given 05/19/2023 11:13 PM EDT 10 mg Given 05/18/2023 11:41 PM EDT 10 mg oxyCODONE (Oxy IR) tab 5 mg 5 mg, Oral, Q4H PRN Pain, Moderate, Starting on Fri05/16/23 at 0641, Until Fri05/20/23 at 1903 Given 05/20/2023 5: 22 AM EDT 5 mg Given 05/19/2023 6:11 PM EDT 5 mg Given 05/19/2023 1:05 PM EDT 5 mg oxygen GAS Inhalation, OXYGEN, First dose on Fri05/15/23 at 1600, Until Discontinued, Device/Managed by: Low Flow Device, Goal SPO2 (%): 91-95, Starting Device: Nasal Cannula, Initial Flow Rate (LPM): 2, Lowest Support: Nasal Cannula: Flow 0-6 LPM. Titrate up/down by 1 LPM., Higher Support: Non-Rebreather (NRB) Mask: Minimum of 10 LPM. Titrate to maintain bag inflation., Titration Interval: Q2 minutes and as needed., Notify Provider: Other, Notify Provider [other]: If SpO2 less than 88% or NOT maintaining SpO2 greater than 92% notify physician immediately., Until awake OR SpO2 greater than 95% for 15 minutes, then Titrate O2 flow rate down to maintain SpO2 greater than 92% If SpO2 is less than 88% place patient on NRB mask at 10 LPM Oxygen On 05/15/2023 4:00 PM EDT Polyethylene Glycol 3350 (Miralax) oral powder 17 g 17 g (1 Packet), Oral, Daily(AM), First dose on Fri05/18/23 at 0900, Until Discontinued, Mix in 8 oz of water, juice, soda, coffee, or tea. Given 05/19/2023 8:18 AM EDT 17 g Given 05/18/2023 8:27 AM EDT 17 g prochlorperazine (Compazine) inj 10 mg 10 mg, IV Push, Q6H PRN Other, nausea not improved with zofran, Starting on Fri05/19/23 at 1311, Until Fri05/20/23 at 1903 Given 05/19/2023 1:55 PM EDT 10 mg Scopolamine (Transderm Scop) patch 1 mg 1 mg (1 Patch), Transdermal, Q3DAYS, First dose on Fri05/15/23 at 2245, Last dose on Fri05/15/23 at 2245, For 1 dose, Do NOT cut the patch. All Scopolamine patches deliver 1 mg over 72 hours. Remove any Scopolamine patches the patient may currently be wearing prior to applying the new patch. Patch Applied 05/15/2023 10:27 PM EDT 1 mg Other-Specify Scopolamine (Transderm Scop) patch 1 mg 1 mg (1 Patch), Transdermal, Q3DAYS, First dose (after last reorder) on Fri05/19/23 at 1315, Last dose on Fri05/19/23 at 1315, For 1 dose, Do NOT cut the patch. All Scopolamine patches deliver 1 mg over 72 hours. Remove any Scopolamine patches the patient may currently be wearing prior to applying the new patch. Patch Applied 05/19/2023 1:19 PM EDT 1 mg Other-Specify senna (Senokot) 2 Tablet 2 Tablet, Oral, Daily(AM), First dose on Fri05/16/23 at 0900, Until Discontinued, hold if patient have loose stool or frequent bowel movements, Post-op Given 05/20/2023 7:45 AM EDT 2 Tablets Given 05/19/2023 8:18 AM EDT 2 Tablets Given 05/18/2023 8:27 AM EDT 2 Tablets trimethobenzamide (Tigan) inj 100 mg 100 mg, Intramuscular, Q8H, First dose on Fri05/16/23 at 0130, Last dose on Fri05/16/23 at 1715, For 1 day Given 05/16/2023 8:09 PM EDT 100 mg Dorsogluteal Left Given 05/16/2023 12:18 PM EDT 100 mg D orsogluteal Right Given 05/16/2023 4:37 AM EDT 100 mg Do rsogluteal Left documented in this encounter Active and Recently Administered Medications Times are shown in EDT. Scheduled Medication Order 05/18/2023 05/19/2023 05/20/2023 Acetaminophen (Ofirmev) inj 1,000 mg 1,000 mg, Intravenous, Q6H, 4 doses, First dose (after last modification) on Fri05/16/23 at 1800, Last dose on Fri05/17/23 at 1200, Administer over 15 Minutes, Administer undiluted over 15 minutes! NOTE: Maximum of 4000 mg per 24 hours of acetaminophen from all acetaminophen containing products., Indication: Patient is experiencing severe nausea and vomiting Acetaminophen (Ofirmev) inj 1,000 mg (CANCELED) 1,000 mg, Intravenous, Q6H, 4 doses, First dose (after last reorder) on 05/18/23 at 0000, Last dose on 05/18/23 at 1800, Administer over 15 Minutes, Administer undiluted over 15 minutes! NOTE: Maximum of 4000 mg per 24 hours of acetaminophen from all acetaminophen containing products., Indication: Patient is experiencing severe nausea and vomiting 0006 (Stopped - Provider: Jovan Peter RN)0635 (New Bag - Provider: Jovan Peter RN)0650 (Stopped - Provider: Jovan Peter RN)0700 (Stopped - Provider: Jovan Peter RN) check patch placement order QSHIFT, First dose on Fri05/16/23 at 0000, Until Discontinued, Routine, Scopolamine (TRANSDERM SCOP) patch placement check 0000 (Patch Placement Verified - Provider: Jovan Peter RN)0800 (Patch Placement Verified - Provider: Elijah Espino RN)1600 (Patch Placement Verified - Provider: Elijah Espino RN) 0000 (Patch Placement Verified - Provider: Annette Guan RN - Comment: no patch on patient.)0800 (Patch Placement Verified - Provider: Gabbi Hensley RN - Comment: no patch)1600 (Patch Placement Verified - Provider: Jj Magallanes RN - Comment: behind left ear) 0000 (Patch Placement Verified - Provider: Annette Guan RN - Comment: behind left ear)0800 (Patch Placement Verified - Provider: Elijah Espino RN) Docusate Sodium (Colace) cap 100 mg 100 mg, Oral, BID (.AM/PM), First dose on Delores 05/15/23 at 2100, Until Discontinued, For oral administration ONLY, if route of administration is other than oral and alternative product must be ordered., Post-op 08 (Given - Provider: Elijah Espino, ALONSO)1942 (Given - Provider: Meg Connors, ALONSO) 08 (Given - Provider: Gabbi Hensley, RN)2149 (Given - Provider: Jj Magallanes, ALONSO) 0745 (Given - Provider: Elijah Espino, ALONSO) doxycycline tab 100 mg (CANCELED) 100 mg, Oral, Q12H, First dose on 05/19/23 at 2100, Last dose on Delores 05/29/23 at 0900, For 10 days 2149 (Given - Provider: Jj Magallanes, ALONSO) 744 (Given - Provider: Elijah Espino RN) Enoxaparin (Lovenox) inj 40 mg 40 mg, Subcutaneous, Daily(AM), First dose on 05/17/23 at 1000, Until Discontinued, If patient is on warfarin, inform provider if daily INR value is 2 or greater! 826 (Given - Provider: Elijah Espino RN) 817 (Given - Provider: Gabbi Hensley, ALONSO) 0745 (Given - Provider: Elijah Espino RN) Gabapentin (Neurontin) cap 100 mg 100 mg, Oral, TID(AM/NOON/HS), First dose on Delores 05/15/23 at 2200, Until Discontinued, Post-op 0631 (Given - Provider: Jovan Peter RN)1123 (Given - Provider: Elijah Espino RN)1942 (Given - Provider: Meg Connors RN) 05 (Given - Provider: Annette Guan, ALONSO)1217 (Given - Provider: Jj Magallanes, ALONSO)2149 (Given - Provider: Jj Magallnaes, ALONSO) 0519 (Given - Provider: Annette Guan, RN)1200 (Not Given - Provider: Elijah Espino RN - Reason: Refused-Notify Provider - Comment: Luis Alberto Ramires notified) levothyroxine (Levoxyl) tab 25 mcg 25 mcg, Oral, [id number], First dose on Fri05/16/23 at 0630, Until Discontinued 630 (Given - Provider: Jovan Peter RN) 0557 (Given - Provider: Annette Guan RN) 0519 (Given - Provider: Annette Guan, RN) Lidocaine (Aspercreme) 4 % patch 1 Patch 1 Patch, Transdermal, Daily(AM), First dose (after last modification) on Fri05/16/23 at 0100, Until Discontinued, Apply patch for 12 hours then remove for 12 hours! Remove any Lidocaine patches the patient may currently be wearing prior to applying the new patch 08 (Patch Applied - Provider: Elijah Espino RN)2026 (Patch Removed - Provider: Meg Connors RN) 08 (Patch Applied - Provider: Gabbi Hensley, ALONSO)2017 (Patch Removed - Provider: Jj Magallanes RN) 0745 (Patch Applied - Provider: Elijah Espino RN)1503 (Due: Patch Removed - Provider: Discharge, Physician - Comment: Time automatically adjusted from order being discontinued) omeprazole (PriLOSEC) cap 20 mg 20 mg, Oral, Daily(AM), First dose on Fri05/16/23 at 0900, Until Discontinued, This med should NOT be Crushed or Chewed 826 (Given - Provider: Elijah Espino RN) 0818 (Given - Provider: Gabbi Hensley RN) 0745 (Given - Provider: Elijah Espino RN) Polyethylene Glycol 3350 (Miralax) oral powder 17 g (CANCELED) 17 g (1 Packet), Oral, Daily(AM), First dose on Fri05/18/23 at 0900, Until Discontinued, Mix in 8 oz of water, juice, soda, coffee, or tea. 08 (Given - Provider: Elijah Espino RN) 0818 (Given - Provider: Gabbi Hensley RN) Scopolamine (Transderm Scop) patch 1 mg 1 mg (1 Patch), Transdermal, Q3DAYS, First dose (after last reorder) on Fri05/19/23 at 1315, Last dose on Fri05/19/23 at 1315, For 1 dose, Do NOT cut the patch. All Scopolamine patches deliver 1 mg over 72 hours. Remove any Scopolamine patches the patient may currently be wearing prior to applying the new patch. 1319 (Patch Applied - Provider: Jj Magallanes RN - Comment: behind left ear) 1503 (Due: Patch Removed - Provider: Discharge, Physician - Comment: Time automatically adjusted from order being discontinued) senna (Senokot) 2 Tablet 2 Tablet, Oral, Daily(AM), First dose on Fri05/16/23 at 0900, Until Discontinued, hold if patient have loose stool or frequent bowel movements, Post-op 0827 (Given - Provider: Elijah Espino RN) 0818 (Given - Provider: Gabbi Hensley RN) 0745 (Given - Provider: Elijah Espino RN) Tobramycin-dexAMETHasone (Tobradex) ophthalmic suspension 1 Drop 1 Drop, Both eyes, [id number], First dose on Fri05/16/23 at 0900, Until Discontinued 0900 (Not Given - Provider: Elijah Espino RN - Reason: Refused-Notify Provider - Comment: pt reports using own as needed, Tedyd Vigil notified) 0859 (Not Given - Provider: Gabbi Hensley RN - Reason: Refused-Notify Provider - Comment: not taking; Dr Elder at bedside and aware.) 0900 (Not Given - Provider: Elijah Espino RN - Reason: Refused-Notify Provider - Comment: Luis Alberto Ramires notified) PRN Medication Order 05/18/2023 05/19/2023 05/20/2023 Acetaminophen (Tylenol) tab 975 mg 975 mg, Oral, Q6H PRN Pain, Mild, Fever >38C(100.5F), Starting on Fri05/18/23 at 0730, Until Fri05/20/23 at 1903, Maximum of 4 grams (4000 mg) per day. Carisoprodol (Soma) tab 350 mg 350 mg, Oral, Q8H PRN Muscle spasms, Starting on Fri05/15/23 at 1730, Until Fri05/20/23 at 1903, Post-op clonazePAM (KlonoPIN) tab 0.5 mg 0.5 mg, Oral, TID PRN Anxiety, Starting on Fri05/15/23 at 1732, Until Fri05/20/23 at 1903 HYDROmorphone (Dilaudid) inj 0.5 mg 0.5 mg, IV Push, Q4H PRN Pain, Breakthrough, Starting on Fri05/16/23 at 1232, Until Fri05/20/23 at 1903 melatonin tab 3 mg 3 mg, Oral, HS PRN Sleep, Starting on Delores 05/15/23 at 1730, Until Fri05/20/23 at 1903, Post-op naloxone (Narcan) 0.4 MG/ML inj 0.08 mg 0.08 mg, IV Push, PRN Other, RR less than 8, Starting on Fri05/16/23 at 0050, Until Fri05/20/23 at 1903, Stop and call General Clerk, may repeat 0.04 mg IVP q1 minute ondansetron (Zofran) inj 4 mg(Linked Group 1) 4 mg, IV Push, Q6H PRN Other, May use for nausea or vomiting if patient unable to take oral ondansetron, Starting on Delores 05/15/23 at 1730, Until Fri05/20/23 at 1903, Post-op 0855 (Given - Provider: Gabbi Hensley RN) ondansetron ODT (Zofran) tab 4 mg(Linked Group 1) 4 mg, On Tongue, Q6H PRN Nausea, Vomiting, Starting on Delores 05/15/23 at 1730, Until Fri05/20/23 at 1903, Post-op 0855 (See Alternative - Provider: Gabbi Hensley RN) oxyCODONE (Oxy IR) tab 10 mg 10 mg, Oral, Q4H PRN Pain, Severe, Starting on Fri05/16/23 at 0641, Until Fri05/20/23 at 1903 0636 (Given - Provider: Jovan Peter RN)1048 (Given - Provider: Elijah Espino, ALONSO)1559 (Given - Provider: Brooklynn Toney RN)1943 (Given - Provider: Meg Connors, ALONSO)2341 (Given - Provider: Annette Guan, ALONSO) 2313 (Given - Provider: Annette Guan, ALONSO) 1433 (Given - Provider: Elijah Espino, ALONSO) oxyCODONE (Oxy IR) tab 5 mg 5 mg, Oral, Q4H PRN Pain, Moderate, Starting on Fri05/16/23 at 0641, Until Fri05/20/23 at 1903 1305 (Given - Provider: Jj Magallanes, RN)1811 (Given - Provider: Jj Magallanes, RN) 0522 (Given - Provider: Annette Guan RN) prochlorperazine (Compazine) inj 10 mg 10 mg, IV Push, Q6H PRN Other, nausea not improved with zofran, Starting on 05/19/23 at 1311, Until Tu05/20/23 at 1903 1355 (Given - Provider: Jj Magallanes RN) Linked Groups Order Group 1: ondansetron ODT (Zofran) tab 4 mgJump to med 4 mg, On Tongue, Q6H PRN Nausea, Vomiting, Starting on Delores 05/15/23 at 1730, Until Fri05/20/23 at 1903, Post-op Or ondansetron (Zofran) inj 4 mgJump to med 4 mg, IV Push, Q6H PRN Other, May use for nausea or vomiting if patient unable to take oral ondansetron, Starting on Delores 05/15/23 at 1730, Until Fri05/20/23 at 1903, Post-op documented in this encounter Advance Directives Latest [...] the patient have Health Care Power of Import Coordination And Production Head? No Full Code 12/13/2022 11:07 AM 12/14/2022 [...] the patient have Health Care Power of Import Coordination And Production Head? No Full Code 01/15/2022 12:37 PM 01/15/2022 7:56 PM Th is order reflects the patients wishes and were consensually agreed upon. Question Answer Comments Discussion of Advance Directives occurred with: Not Discussed due to patient's condition Care Teams Tube Carrier Relationship Specialty Start Date End Date Caitie Aden DO [address] [place] [id number] PCP - General 09/12/09 documented as of this encounter
--- OUTSIDE RECORDS SUMMARY | 2023-10-26 06:41 | External Medical Summary ---
Author Name Unknown Address Unknown Organization [id number]:[place] [place] [address] [place] [address] Laboratory Report Ordering Provider Test Date Status KELLY FERRIS 05/20/2023 05:27:00 Final Observation Date Value Abnormality Reference (Units ) Status BUN 05/20/2023 05:27:00 17 6-20 (mg/dL) Final Creatinine 05/20/2023 05:27:00 0.7 0.5-1.0 (mg/dL) Final Glomerular filtration rate/1.73 sq M.predicted [Volume Rate/Area] in Serum, Plasma or Blood by Creatinine-based formula (CKD-EPI) 05/20/2023 05:27:00 >90 >=60 (mL/min) Final eGFR is calculated based on the CKD-EPI 2020 equation SODIUM 05/20/2023 05:27:00 136 135-146 (m mol/L) Final Potassium 05/20/2023 05:27:00 3.7 3.5-5.1 (m mol/L) Final Cl 05/20/2023 05:27:00 103 98-107 (mm ol/L) Final CO2 05/20/2023 05:27:00 24 22-32 (mmo l/L) Final Anion gap 05/20/2023 05:27:00 9 7-15 (mmol /L) Final Glucose 05/20/2023 05:27:00 104 70-120 (mg /dL) Final Calcium 05/20/2023 05:27:00 9.3 8.4-10.2 ( mg/dL) Final Performing Location LABORATORY C - [address] [place] [address]
--- OUTSIDE RECORDS SUMMARY | 2023-10-26 06:41 | External Medical Summary ---
Author Name Unknown Address Unknown Organization [id number]:LABORATORY [facility] – [place] - [address] [facility] [address] Laboratory Report Ordering Provider Test Date Status ELIZABETH FREGOSO 05/19/2023 07:25:00 Final Observation Date Value Abnormality Reference (Units ) Status WBC, Total 05/19/2023 07:25:00 3.88 Below low normal 4.00-10.80 (K/uL) Final RBC 05/19/2023 07:25:00 3.55 3.85-5.15 (M/uL) Final Hemoglobin 05/19/2023 07:25:00 11.0 Below low normal 12.0-15.3 (g/dL) Final HCT 05/19/2023 07:25:00 32.9 Below low normal 36.0-45.2 (%) Final MCV 05/19/2023 07:25:00 92.7 81.5-97.5 (fL) Final MCH 05/19/2023 07:25:00 31.0 27.0-34.0 (pg) Final MCHC 05/19/2023 07:25:00 33.4 32.0-36.0 (g/dL) Final RDW 05/19/2023 07:25:00 13.4 11.5-15.5 (%) Final Platelets 05/19/2023 07:25:00 108 Below low normal 140-400 (K/uL) Final MPV 05/19/2023 07:25:00 9.6 6.6-11.1 (fL) Final Nucleated erythrocytes/100 leukocytes [Ratio] in Blood by Automated count 05/19/2023 07:25:00 0 <=0 (/100 WBCs) Final Performing Location LABORATORY C - [address] [place] [address]
--- OUTSIDE RECORDS SUMMARY | 2023-10-26 06:42 | External Medical Summary ---
Author Name Unknown Address Unknown Organization [id number]:LABORATORY [facility] [place] - [address] [facility] [address] Laboratory Report Ordering Provider Test Date Status CLINTON MORALES 05/15/2023 13:23:38 Final Observation Date Value Abnormality Reference (Units ) Status WBC, Total 05/15/2023 13:23:38 3.69 Below low normal 4.00-10.80 (K/uL) Final RBC 05/15/2023 13:23:38 4.25 3.85-5.15 (M/uL) Final Hemoglobin 05/15/2023 13:23:38 13.0 12.0-15.3 (g/dL) Final HCT 05/15/2023 13:23:38 38.8 36.0-45.2 (%) Final MCV 05/15/2023 13:23:38 91.3 81.5-97.5 (fL) Final MCH 05/15/2023 13:23:38 30.6 27.0-34.0 (pg) Final MCHC 05/15/2023 13:23:38 33.5 32.0-36.0 (g/dL) Final RDW 05/15/2023 13:23:38 13.8 11.5-15.5 (%) Final Platelets 05/15/2023 13:23:38 96 Below low normal 140-400 (K/uL) Final MPV 05/15/2023 13:23:38 9.4 6.6-11.1 (fL) Final Nucleated erythrocytes/100 leukocytes [Ratio] in Blood by Automated count 05/15/2023 13:23:38 0 <=0 (/100 WBCs) Final Performing Location LABORATORY C - [address] [facility] [address]
--- OUTSIDE RECORDS SUMMARY | 2023-10-26 06:42 | External Medical Summary ---
Author Name Unknown Address Unknown Organization K01:[facility] [place] [facility] [place] [address] [place] [address] Laboratory Report Ordering Provider Test Date Status CLINTON MORALES 05/15/2023 13:23:38 Final Observation Date Value Abnormality Reference (Units ) Status ABO 05/15/2023 13:23:38 O Final RH 05/15/2023 13:23:38 Positive Final RED BLOOD CELL ANTIBODY SCREEN 05/15/2023 13:23:38 Negative Final SPECIMEN EXPIRATION DATE 05/15/2023 13:23:38 05/18/2023 23:59 Final Performing Location LABOR[facility]ORY [facility] - [address] [place] [address]
--- OUTSIDE RECORDS SUMMARY | 2023-10-26 06:42 | External Medical Summary ---
Author Name Unknown Address Unknown Organization : Laboratory Report Ordering Provider Test Date Status LARA PEREZ 05/15/2023 15:58:05 Final Observation Date Value Abnormality Reference (Units ) Status Glucose Point of Care 05/15/2023 15:58:05 125 Above high normal 70-120 (mg/dL) Final Performing Location
--- OUTSIDE RECORDS SUMMARY | 2023-10-26 06:42 | External Medical Summary ---
Author Name Unknown Address Unknown Organization [id number][place] [facility] [place] [address] [facility] [address] Laboratory Report Ordering Provider Test Date Status CLINTON MORALES 05/15/2023 18:51:15 Final SCREENING Observation Date Value Abnormality Reference (Units ) Status SARS Coronavirus 2 05/15/2023 18:51:15 Negative N egative Final 2019 Novel Coronavirus not d etected.

This express test was developed and its performance characteristics determined by [facility]. It has not been cleared or approved [...] (RT-PCR) test, or a Centers for Disease Control-acceptable equivalent. The test is performed in a high complexity Clinical Laboratory Improvement Amendments-(CLIA) certified laboratory. The test is acceptable for SARS-CoV-2 diagnosis, surveillance, and travel within the [place] and to most countries. Please check with local testing authorities about requirements before travel.

The validation of bronchial specimens, tracheal aspirates, and sputum for this assay was developed and performance characteristics determined by [facility]. The validation of alternate specimen types has not been cleared or approved by the U.S. Food and Drug Administration (FDA). It has been determined that such clearance is not necessary. Performing Location [place] [facility] [place] [address] [facility] [address]
--- OUTSIDE RECORDS SUMMARY | 2023-10-26 06:42 | External Medical Summary ---
Author Name Unknown Address Unknown Organization [id number]:LABORATORY [facility] [place] - [address] [place] [address] Laboratory Report Ordering Provider Test Date Status KELLY FERRIS 05/18/2023 07:57:00 Final POD 1 Observation Date Value Abnormality Reference (Units ) Status WBC, Total 05/18/2023 07:57:00 5.04 4.00-10.80 (K/uL) Final RBC 05/18/2023 07:57:00 3.74 3.85-5.15 (M/uL) Final Hemoglobin 05/18/2023 07:57:00 11.6 Below low normal 12.0-15.3 (g/dL) Final HCT 05/18/2023 07:57:00 35.7 Below low normal 36.0-45.2 (%) Final MCV 05/18/2023 07:57:00 95.5 81.5-97.5 (fL) Final MCH 05/18/2023 07:57:00 31.0 27.0-34.0 (pg) Final MCHC 05/18/2023 07:57:00 32.5 32.0-36.0 (g/dL) Final RDW 05/18/2023 07:57:00 13.8 11.5-15.5 (%) Final Platelets 05/18/2023 07:57:00 91 Below low normal 140-400 (K/uL) Final MPV 05/18/2023 07:57:00 9.2 6.6-11.1 (fL) Final Nucleated erythrocytes/100 leukocytes [Ratio] in Blood by Automated count 05/18/2023 07:57:00 0 <=0 (/100 WBCs) Final Performing Location LABORATORY [facility] - [address] [place] [address]
--- OUTSIDE RECORDS SUMMARY | 2023-10-26 06:42 | External Medical Summary ---
Author Name Unknown Address Unknown Organization : Laboratory Report Ordering Provider Test Date Status LARA PEREZ 05/15/2023 13:25:05 Final Observation Date Value Abnormality Reference (Units ) Status Glucose Point of Care 05/15/2023 13:25:05 94 70-120 (mg/dL) Final Performing Location
--- OUTSIDE RECORDS SUMMARY | 2023-10-26 06:42 | External Medical Summary ---
Author Name Unknown Address Unknown Organization K01:LABORATORY [facility] [place] - [address] [place] [address] Laboratory Report Ordering Provider Test Date Status KELLY FERRIS 05/17/2023 07:50:00 Final POD 1 Observation Date Value Abnormality Reference (Units ) Status WBC, Total 05/17/2023 07:50:00 5.50 4.00-10.80 (K/uL) Final RBC 05/17/2023 07:50:00 3.63 3.85-5.15 (M/uL) Final Hemoglobin 05/17/2023 07:50:00 11.4 Below low normal 12.0-15.3 (g/dL) Final HCT 05/17/2023 07:50:00 34.4 Below low normal 36.0-45.2 (%) Final MCV 05/17/2023 07:50:00 94.8 81.5-97.5 (fL) Final MCH 05/17/2023 07:50:00 31.4 27.0-34.0 (pg) Final MCHC 05/17/2023 07:50:00 33.1 32.0-36.0 (g/dL) Final RDW 05/17/2023 07:50:00 14.0 11.5-15.5 (%) Final Platelets 05/17/2023 07:50:00 82 Below low normal 140-400 (K/uL) Final MPV 05/17/2023 07:50:00 9.5 6.6-11.1 (fL) Final Nucleated erythrocytes/100 leukocytes [Ratio] in Blood by Automated count 05/17/2023 07:50:00 0 <=0 (/100 WBCs) Final Performing Location LABORATORY [facility] - [address] [place] [address]
--- OUTSIDE RECORDS SUMMARY | 2023-10-26 06:42 | External Medical Summary ---
Author Name Unknown Address Unknown Organization : Laboratory Report Ordering Provider Test Date Status LARA PEREZ 05/15/2023 18:22:45 Final Observation Date Value Abnormality Reference (Units ) Status Glucose Point of Care 05/15/2023 18:22:45 111 70-120 (mg/dL) Final Performing Location
--- OUTSIDE RECORDS SUMMARY | 2023-10-26 06:42 | External Medical Summary ---
Author Name Unknown Address Unknown Organization K01:[place] [facility] [place] [address] [place] [address] Laboratory Report Ordering Provider Test Date Status KELLY FERRIS 05/17/2023 07:50:00 Final Observation Date Value Abnormality Reference (Units ) Status BUN 05/17/2023 07:50:00 13 6-20 (mg/dL) Final Creatinine 05/17/2023 07:50:00 0.8 0.5-1.0 (mg/dL) Final Glomerular filtration rate/1.73 sq M.predicted [Volume Rate/Area] in Serum, Plasma or Blood by Creatinine-based formula (CKD-EPI) 05/17/2023 07:50:00 80 >=60 (mL/min) Final eGFR is calculated based on the CKD-EPI 2020 equation SODIUM 05/17/2023 07:50:00 136 135-146 (m mol/L) Final Potassium 05/17/2023 07:50:00 4.0 3.5-5.1 (m mol/L) Final Cl 05/17/2023 07:50:00 105 98-107 (mm ol/L) Final CO2 05/17/2023 07:50:00 23 22-32 (mmo l/L) Final Anion gap 05/17/2023 07:50:00 8 7-15 (mmol /L) Final Glucose 05/17/2023 07:50:00 92 70-120 (mg /dL) Final Calcium 05/17/2023 07:50:00 8.5 8.4-10.2 ( mg/dL) Final Performing Location LAB[facility]ORY [facility] [place] [address] [place] [address]
--- OUTSIDE RECORDS SUMMARY | 2023-10-26 06:42 | External Medical Summary ---
Author Name Unknown Address Unknown Organization K01:LABORATORY [facility] [place] - [address] [place] [address] Laboratory Report Ordering Provider Test Date Status KELLY FERRIS 05/16/2023 06:54:00 Final Observation Date Value Abnormality Reference (Units ) Status BUN 05/16/2023 06:54:00 15 6-20 (mg/dL) Final Creatinine 05/16/2023 06:54:00 0.9 0.5-1.0 (mg/dL) Final Glomerular filtration rate/1.73 sq M.predicted [Volume Rate/Area] in Serum, Plasma or Blood by Creatinine-based formula (CKD-EPI) 05/16/2023 06:54:00 75 >=60 (mL/min) Final eGFR is calculated based on the CKD-EPI 2020 equation SODIUM 05/16/2023 06:54:00 134 Below low normal 135 -146 (mmol/L) Final Potassium 05/16/2023 06:54:00 3.8 3.5-5.1 (m mol/L) Final Cl 05/16/2023 06:54:00 104 98-107 (mm ol/L) Final CO2 05/16/2023 06:54:00 24 22-32 (mmo l/L) Final Anion gap 05/16/2023 06:54:00 6 Below low normal 7-1 5 (mmol/L) Final Glucose 05/16/2023 06:54:00 97 70-120 (mg /dL) Final Calcium 05/16/2023 06:54:00 8.4 8.4-10.2 ( mg/dL) Final Performing Location LABORATORY [facility] [place] - [address] [place] [address]
--- OUTSIDE RECORDS SUMMARY | 2023-10-26 06:42 | External Medical Summary ---
Author Name Unknown Address Unknown Organization K01:LABORATORY [facility] [place] - [facility] [address] [place] [address] Laboratory Report Ordering Provider Test Date Status CLINTON MORALES 05/15/2023 13:23:38 Final Observation Date Value Abnormality Reference (Units ) Status BUN 05/15/2023 13:23:38 17 6-20 (mg/dL) Final Creatinine 05/15/2023 13:23:38 0.8 0.5-1.0 (mg/dL) Final Glomerular filtration rate/1.73 sq M.predicted [Volume Rate/Area] in Serum, Plasma or Blood by Creatinine-based formula (CKD-EPI) 05/15/2023 13:23:38 79 >=60 (mL/min) Final eGFR is calculated based on the CKD-EPI 2020 equation SODIUM 05/15/2023 13:23:38 139 135-146 (m mol/L) Final Potassium 05/15/2023 13:23:38 4.1 3.5-5.1 (m mol/L) Final Cl 05/15/2023 13:23:38 104 98-107 (mm ol/L) Final CO2 05/15/2023 13:23:38 25 22-32 (mmo l/L) Final Anion gap 05/15/2023 13:23:38 10 7-15 (mmol /L) Final Glucose 05/15/2023 13:23:38 90 70-120 (mg /dL) Final Calcium 05/15/2023 13:23:38 9.6 8.4-10.2 ( mg/dL) Final Performing Location LABORATORY [facility] [place] - [address] [place] [address]
--- OUTSIDE RECORDS SUMMARY | 2023-10-26 06:42 | External Medical Summary ---
Author Name Unknown Address Unknown Organization K01:LABORATORY [facility] [place] - [address] [place] [address] Laboratory Report Ordering Provider Test Date Status KELLY FERRIS 05/16/2023 06:53:00 Final POD 1 Observation Date Value Abnormality Reference (Units ) Status WBC, Total 05/16/2023 06:53:00 4.56 4.00-10.80 (K/uL) Final RBC 05/16/2023 06:53:00 3.39 3.85-5.15 (M/uL) Final Hemoglobin 05/16/2023 06:53:00 10.7 Below low normal 12.0-15.3 (g/dL) Final HCT 05/16/2023 06:53:00 31.6 Below low normal 36.0-45.2 (%) Final MCV 05/16/2023 06:53:00 93.2 81.5-97.5 (fL) Final MCH 05/16/2023 06:53:00 31.6 27.0-34.0 (pg) Final MCHC 05/16/2023 06:53:00 33.9 32.0-36.0 (g/dL) Final RDW 05/16/2023 06:53:00 14.0 11.5-15.5 (%) Final Platelets 05/16/2023 06:53:00 81 Below low normal 140-400 (K/uL) Final MPV 05/16/2023 06:53:00 9.2 6.6-11.1 (fL) Final Nucleated erythrocytes/100 leukocytes [Ratio] in Blood by Automated count 05/16/2023 06:53:00 0 <=0 (/100 WBCs) Final Performing Location LABORATORY [facility] - [address] [place] [address]
--- OUTSIDE RECORDS SUMMARY | 2023-10-26 06:42 | External Medical Summary ---
Author Name Unknown Address Unknown Organization K01:LABORATORY [facility] [place] - [address] [place] [address] Laboratory Report Ordering Provider Test Date Status KELLY FERRIS 05/18/2023 07:57:00 Final Observation Date Value Abnormality Reference (Units ) Status BUN 05/18/2023 07:57:00 14 6-20 (mg/dL) Final Creatinine 05/18/2023 07:57:00 0.8 0.5-1.0 (mg/dL) Final Glomerular filtration rate/1.73 sq M.predicted [Volume Rate/Area] in Serum, Plasma or Blood by Creatinine-based formula (CKD-EPI) 05/18/2023 07:57:00 81 >=60 (mL/min) Final eGFR is calculated based on the CKD-EPI 2020 equation SODIUM 05/18/2023 07:57:00 137 135-146 (m mol/L) Final Potassium 05/18/2023 07:57:00 4.2 3.5-5.1 (m mol/L) Final Cl 05/18/2023 07:57:00 105 98-107 (mm ol/L) Final CO2 05/18/2023 07:57:00 24 22-32 (mmo l/L) Final Anion gap 05/18/2023 07:57:00 8 7-15 (mmol /L) Final Glucose 05/18/2023 07:57:00 96 70-120 (mg /dL) Final Calcium 05/18/2023 07:57:00 8.9 8.4-10.2 ( mg/dL) Final Performing Location LABORATORY [facility] [place] - [address] [place] [address]
--- NOTE | 2023-10-26 07:53 | Emergency Department Note ---
History of Present Illness General Chief complaint: Flank Pain Stated complaint: GALLSTONES,FLANK/BACK PAIN Time Seen by Provider: 10/26/23 07:39 Source: patient, family ( who is at the bedside and driving), RN notes reviewed and old records reviewed (Old medical records were attempted to be reviewed but there are no old records at this hospital. Nurse's notes were reviewed and I agree with.) Mode of arrival: ambulatory Limitations: no limitations History of Present Illness Maximum Pain Intensity: 2 This patient is a 62-year-old female who comes in after having right sided abdominal pain. She has a complex history with an ostomy due to anal cancer in the past she has had multiple abdominal surgeries. She had a mesh implant done in May. She is on no current chemo or radiation. She is a long history of kidney stones and since having the radiation she has a hard time passing them she is a kidney stone 2 weeks ago done and do boys which showed hydro and 2 stones on the right within the ureter. She was not having pain at the time was more of a routine study she started having pain overnight . no dysuria or hematuria. no fever or chills. no fall or trauma. Home Medications Medication Instructions Recorded Confirmed Type calcium carbonate 600 mg-vitamin 1 tab PO DAILY 10/26/23 10/26/23 History D3 10 mcg (400 unit) tablet (Calcium 600 + D(3)) carboxymethylcellulose 1 drp ophthalmic (eye) BID 10/26/23 10/26/23 History sod-hypromell 0.25 %-0.3 % eye liquid gel drops carboxymethylcellulose sodium 1 % 1 drp ophthalmic (eye) BID 10/26/23 10/26/23 History eye gel in a dropperette (TheraTears) clonazepam 1 mg tablet 1 mg PO TID PRN Anxiety/Insomnia 10/26/23 10/26/23 History docusate sodium 100 mg capsule 200 mg PO DAILY 10/26/23 10/26/23 History (Colace) inulin-sorbitol 2 gram chewable 1 tab PO DAILY 10/26/23 10/26/23 History tablet levothyroxine 25 mcg tablet 25 mcg PO DAILYBB 10/26/23 10/26/23 History naloxone 4 mg/actuation nasal spray 4 mg intranasal UD 10/26/23 10/26/23 History omeprazole 20 mg capsule,delayed 20 mg PO DAILY 10/26/23 10/26/23 History release oxycodone 5 mg tablet 5 mg PO UD PRN Severe Pain (Scale 10/26/23 10/26/23 History Score 7-10) potassium citrate 10 mEq (1,080 30 meq PO DAILY 10/26/23 10/26/23 History mg) tablet,extended release prednisone 1 mg tablet 2 mg PO DAILY 10/26/23 10/26/23 History tamsulosin 0.4 mg capsule 0.4 mg PO DAILY 10/26/23 10/26/23 History Allergies Allergy/AdvReac Type Severity Reaction Status Date / Time moxifloxacin [From Avelox] Allergy Severe Rash Unverified 10/26/23 10:34 Penicillins Allergy Severe Hives Unverified 10/26/23 10:34 Sulfa (Sulfonamide Allergy Severe Brain/Head Unverified 10/26/23 10:34 Antibiotics) pressure cefoxitin Allergy Unknown Verified 10/26/23 12:14 vancomycin Allergy Unknown Uncoded 10/26/23 11:58 Antihistames AdvReac Uncoded 10/26/23 11:34 Past Med/Surg History Problem List (Updated 10/26/23 @ 14:20 by Benny Ernst MD) History of creation of ostomy (Acute) Renal colic on right side (Acute) UTI (urinary tract infection) (Acute) Hydroureter on right (Acute) Nephrolithiasis (Acute) Medical History Secondary thrombocytopenia Raynaud's disease Medullary sponge kidney Panic disorder Hypothyroidism SLE (systemic lupus erythematosus) Anal cancer Social History Smoking Status: Never smoker Feels Safe at Home: Yes Immunizations: Past medical historyanal cancer. Colostomy. Kidney stone Social history- she lives with her . Does not smoke Review of Systems A total of 10 systems reviewed and were otherwise negative Physical Exam Vital Signs Vital Signs - 24 hr 10/26/23 06:41 10/26/23 07:16 10/26/23 07:17 Temperature 36.5 C Temperature Source Temporal Artery Scan Pulse Rate 83 73 Pulse Rate [Right Brachial] 72 Pulse Rhythm Regular Pulse Rhythm [Right Brachial] Regular Pulse Strength [Right Brachial] Normal Respiratory Rate 16 18 Respiratory Effort / Characteristics Non-Labored Non-Labored Respiratory Depth Normal Normal Respiratory Pattern Regular Blood Pressure 104/62 Blood Pressure [Right Arm] 114/67 Blood Pressure Mean 76 Blood Pressure Mean [Right Arm] 82 Blood Pressure Position [Right Arm] Sitting Pulse Oximetry 98 95 Oxygen Delivery Method Room Air Room Air Sepsis Recent Fever Within 48 Hours No Sepsis New/Unexplained Change in Mental Status No Sepsis Action Taken by Nursing No Action Required 10/26/23 08:19 10/26/23 09:00 10/26/23 11:00 Temperature Temperature Source Pulse Rate 84 Pulse Rate [Right Brachial] 72 75 Pulse Rhythm Regular Pulse Rhythm [Right Brachial] Regular Regular Pulse Strength [Right Brachial] Normal Normal Respiratory Rate 18 20 18 Respiratory Effort / Characteristics Non-Labored Non-Labored Respiratory Depth Normal Normal Respiratory Pattern Regular Regular Blood Pressure Blood Pressure [Right Arm] 115/66 131/75 Blood Pressure Mean Blood Pressure Mean [Right Arm] 82 93 Blood Pressure Position [Right Arm] Lying Lying Pulse Oximetry 99 99 100 Oxygen Delivery Method Room Air Room Air Room Air Sepsis Recent Fever Within 48 Hours Sepsis New/Unexplained Change in Mental Status Sepsis Action Taken by Nursing General: Well developed well nourished in no acute distress, breathing comfortably on room air. Normal speech HEENT: Normal cephalic atraumatic. Pupils are equal round and reactive to light. Extraocular movements are intact. Oropharynx is pink with moist mucous membranes. No swelling of the mouth lips or tongue. Neck: Supple with a midline trachea. No meningeal signs or stiffness, no JVD or bruits. No Stridor. Chest: Clear to auscultation bilaterally. No wheezes or rhonchi. No increased work of breathing. Heart: Regular rate and rhythm without murmurs or gallops. Abdomen: Soft nontender, nondistended without rebound guarding or rigidity. Ostomy in abdomen on the left. Multiple surgical scars. Extremities: No cyanosis clubbing or edema. No calf tenderness or assymetry Spine/Back. Non tender to palpation. No CVA tenderness Skin: Good turgor without rashes. Neurologic exam: Cranial nerves two through 12 are intact. Motor and sensation are intact and symmetrical throughout. Course Administered Medications Discontinued Medications Sodium Chloride (Nss) 1,000 mls @ 999 mls/hr IV .Q1H1M ONE Stop: 10/26/23 08:48 Last Infusion: 10/26/23 09:14 Dose: Infused Documented By: Admin: 10/26/23 07:58 Dose: 999 mls/hr Documented By: TEE Ceftriaxone Sodium (Rocephin) 2,000 mg in 50 mls @ 100 mls/hr IV NOW STA Stop: 10/26/23 12:24 Last Infusion: 10/26/23 12:54 Dose: Infused Documented By: Admin: 10/26/23 12:13 Dose: 100 mls/hr Documented By: ARJUN Ketorolac Tromethamine (Ketorolac Tromethamine 10 Mg Tablet) 10 mg PO NOW STA Stop: 10/26/23 07:49 Last Admin: 10/26/23 07:58 Dose: Not Given Documented By: TEE Ketorolac Tromethamine (Ketorolac Tromethamine 15 Mg/Ml Vial) 10 mg IV NOW ONE Stop: 10/26/23 07:54 Last Admin: 10/26/23 07:57 Dose: 10 mg Documented By: TEE Ketorolac Tromethamine (Ketorolac Tromethamine 15 Mg/Ml Vial) Confirm Administered Dose 15 mg .ROUTE .STK-MED ONE Stop: 10/26/23 07:55 Last Admin: 10/26/23 07:57 Dose: Not Given Documented By: TEE Ketorolac Tromethamine (Ketorolac Tromethamine 15 Mg/Ml Vial) 10 mg IV NOW ONE Stop: 10/26/23 10:36 Last Admin: 10/26/23 10:40 Dose: 10 mg Documented By: ARJUN Medical Decision Making Differential Diagnosis Kidney stone, obstructive uropathy, infection, bowel obstruction, colitis, appendicitis Medical Records Attestation: I reviewed the patient's medical records. Home Medications Current Medication List: was personally reviewed by ct Laboratory Data Attestation: I reviewed the patient's lab results. 10/26/23 07:41 10/26/23 07:41 Lab Results 10/26/23 10/26/23 Range/Units 07:41 09:21 WBC 3.14 L (4.8-10.8) K/ul RBC 4.14 L (4.20-5.40) M/uL Hgb 12.4 (12.0-16.0) g/dl Hct 37.7 (37.0-47.0) % MCV 91.1 (80.0-100.0) fL MCH 30.0 (25.0-34.0) pg MCHC 32.9 (32.0-36.0) g/dL RDW Std Deviation 45.5 (36.4-46.3) fL RDW Coeff of Bertha 13.7 (11.5-14.5) % Plt Count 93 L (130-400) K/uL MPV 9.3 L (9.4-12.4) fL Immature Gran % (Auto) 0.3 % Neut % (Auto) 70.8 % Lymph % (Auto) 19.1 % [place] % (Auto) 9.2 % Eos % (Auto) 0.0 % Baso % (Auto) 0.6 % Neut # (Auto) 2.22 (1.40-6.50) K/uL Lymph # (Auto) 0.60 L (1.20-3.40) K/uL [place] # (Auto) 0.29 (0.11-0.59) K/uL Eos # (Auto) 0.00 (0.00-0.50) K/uL Baso # (Auto) 0.02 (0.00-0.20) K/uL Immature Gran # (Auto) 0.01 (0.01-0.20) K/uL Platelet Estimate Decreased L (Normal) Sodium 138 (136-145) mmol/L Potassium 3.8 (3.5-5.1) mmol/L Chloride 104 (98-107) mmol/L Carbon Dioxide 29 (21-32) mmol/L Anion Gap 5 (3-11) BUN 14 (6-23) mg/dl Creatinine 0.80 (0.6-1.2) mg/dl Est Cr Clr Drug Dosing 74.5 ml/min Est GFR ( Amer) 92.2 ml/min Est GFR (Non-Af Amer) 79.6 ml/min BUN/Creatinine Ratio 17.5 (10-20) Glucose 106 H (70-99(Fasting)) mg/dl Calcium 9.3 (8.6-10.3) mg/dl Total Bilirubin 0.8 (0.2-1.0) mg/dl AST 23 (13-39) U/L ALT 23 (7-52) U/L Alkaline Phosphatase 56 (34-104) U/L Total Protein 7.9 (6.0-8.3) gm/dl Albumin 4.1 (3.4-5.0) gm/dl Globulin 3.8 (2.5-4.0) gm/dl Albumin/Globulin Ratio 1.1 (0.9-2) Lipase 26 (11-82) U/L Urine Color Yellow Urine Appearance Cloudy A (Clear) Urine pH 7.5 (4.5-7.5) Ur Specific [place] 1.011 (1.000-1.030) Urine Protein Negative (Negative) Urine Glucose (UA) Negative (Negative) Urine Ketones Negative (Negative) Urine Blood Trace H (Negative) Urine Nitrite Positive A (Negative) Urine Bilirubin Negative (Negative) Urine Urobilinogen Negative (Negative) Ur Leukocyte Esterase 3+ H (Negative) Urine WBC (Auto) >50 H (0-5) /hpf Urine RBC (Auto) 0-2 (0-2) /hpf U Hyaline Cast (Auto) 0-2 (0-2) /lpf U Epithel Cells (Auto) 0-2 (0-2) /hpf Urine Bacteria (Auto) 4+ H (None Seen) Imaging Data Attestation: I personally reviewed and interpreted this imaging study as follows: My Impression: CT stone studythere is severe hydro on the right with distal stones seen Radiologist's Impression: Abdomen/Pelvis CT 10/26/23 07:[address] WITHOUT CONTRAST CT DOSE: 640.05 mGy.cm HISTORY: Right flank pain. TECHNIQUE: Multiaxial CT images of the abdomen and pelvis were performed without contrast. A dose lowering technique was utilized adhering to the principles of ALARA. COMPARISON STUDY: Outside hospital abdomen and pelvis CT 06/27/2017. FINDINGS: A few bibasilar linear densities consistent with subsegmental atelectasis. There are scattered bilateral pulmonary lung bases. No pneumoperitoneum. No pneumatosis. No acute fractures identified. There is a 1 cm nodule within the basal left lower lobe abutting the mediastinal border on image 7. The spleen is enlarged measuring 17 cm in length. This is similar to the prior study. The unenhanced liver and adrenal glands are unremarkable. Normal pancreas. Cholelithiasis. No gallbladder wall thickening. A 1.2 cm hypodense lesion within the lower pole the left kidney favors a cyst. Multiple bilateral renal calculi are noted. No left-sided hydronephrosis. Moderate to severe right- sided hydroureteronephrosis secondary to a cluster of multiple obstructing stones within the distal right ureter with the largest on image 291 measuring 3 mm. Normal caliber abdominal aorta. There is a left lower quadrant abdominal wall mesh noted. This surrounds the left lower quadrant colostomy site there is a small fat-containing parastomal hernia. The bladder is unremarkable. The uterus and bilateral adnexa are within normal limits. Suboptimal evaluation for bowel pathology due to the lack of intravenous and oral contrast. However, there is no definite bowel wall thickening or obstruction. Normal appendix. IMPRESSION: 1. A cluster of small obstructing stones within the distal right ureter measuring up to 3 mm resulting in moderate to severe right hydroureteronephrosis. 2. Multiple bilateral renal calculi. 3. Cholelithiasis. 4. Splenomegaly. This is similar to the prior study. 5. Postoperative changes as described above. 6. No bowel wall thickening or obstruction. ACT 112: Negative or not required by law. Electronically signed by: John Ramirez M.D. 10/26/2023 9:28 AM MDM Narrative This patient comes in as described above. She was placed in room B8. She is here for treatment and evaluation of abdominal pain she has known kidney stone . she also is a very complex medical history with her cancer as well as treatment. IV access was established and she was hydrated with 1 L IV normal saline bolus. she was given Toradol 10 mg IV and Zofran 4 mg IV. She has multiple allergies and sensitivities to medication she tells me but she tells me she is good with Toradol, Zofran, and Dilaudid. Her is at the bedside and driving. Urinalysis and blood work was obtained as well as a CAT scan. She did require additional Toradol 10 mg IV. White count is not elevated she has baseline thrombocytopenia. She has normal renal function. CAT scan shows severe hydro with several distal stones on the right. Her urinalysis does suggest a UTI as well. She was given IV antibiotics for this as well as IV hydration. I do think she needs to be admitted/observed I did consult Dr. Bonilla, from urology , [facility] saw her in the ER he wants to her to have IV fluids and IV antibiotics and he will plan on putting a stent in in about 24 hours. I did discuss the case at length in consultation with Dr. Dent and he saw the patient ER as well and will admit her for these measures Continuous cardiac monitoring: Orders placed in EMR for continuous cardiac monitoring. Upon my she was noted to be in normal sinus rhythm rate of 75 Impression & Plan Renal colic on right side, Nephrolithiasis, UTI (urinary tract infection), Hydroureter on right, History of creation of ostomy Discharge Plan Visit Data Chief Complaint: Flank Pain Stated Complaint: GALLSTONES,FLANK/BACK PAIN ED Provider: Benny Ernst Discharge Problem: Renal colic on right side, Nephrolithiasis, UTI (urinary tract infection), Hydroureter on right, History of creation of ostomy Patient Disposition: Admitted As Inpatient Discharge Instructions Interventions: ED Discharge Assessment Last Done: 10/26/23 13:19 Discharge Problem: UTI (urinary tract infection) Qualifiers: Urinary tract infection type: acute cystitis Hematuria presence: without hematuria Qualified Code(s): N30.00 - Acute cystitis without hematuria
[2023-10-26] MEDS: KETOROLAC TROMETHAMINE 15 MG/ML VIAL IV ONE ×2 (07:57→10:40)
[2023-10-26] MEDS: KETOROLAC TROMETHAMINE 15 MG/ML VIAL ONE (07:57)
[2023-10-26] MEDS: KETOROLAC TROMETHAMINE 10 MG TABLET PO STA (07:58)
[2023-10-26] MEDS: SODIUM CHLORIDE 0.9% 1,000 ML IV ONE (07:58)
[2023-10-26 08:23] LABS: Albumin Globulin Ratio 1.1 (0.9-2); Albumin Level 4.1 gm/dl (3.4-5.0); BUN Creatinine Ratio 17.5 (10-20); Bilirubin,Total 0.8 mg/dl (0.2-1.0); Calcium 9.3 mg/dl (8.6-10.3); Creatinine Clr Calc Pharmacy 74.5 ml/min; Est GFR (African American) 92.2 ml/min; Est GFR (Non-African American) 79.6 ml/min; Globulin 3.8 gm/dl (2.5-4.0); Potassium 3.8 mmol/L (3.5-5.1); Total Protein 7.9 gm/dl (6.0-8.3)
[2023-10-26 08:39] LABS: Basophils # (auto) 0.02 K/uL (0.00-0.20); Basophils % (auto) 0.6 %; Hematocrit (blood only) 37.7 % (37.0-47.0); Hemoglobin 12.4 g/dl (12.0-16.0); Immature Granulocytes # (auto) 0.01 K/uL (0.01-0.20); Immature Granulocytes % (auto) 0.3 %; Lymphocytes % (auto) 19.1 %; Mean Corpuscular Hgb Conc 32.9 g/dL (32.0-36.0); Mean Corpuscular Volume 91.1 fL (80.0-100.0); Mean Platelet Volume 9.3 fL (9.4-12.4); Monocytes # (auto) 0.29 K/uL (0.11-0.59); Monocytes % (auto) 9.2 %; Neutrophils # (auto) 2.22 K/uL (1.40-6.50); Neutrophils % (auto) 70.8 %; Platelet Count 93 K/uL (130-400); Platelet Estimate Decreased (Normal); RDW Coefficient of Variation 13.7 % (11.5-14.5); RDW Standard Deviation 45.5 fL (36.4-46.3); Red Blood Count 4.14 M/uL (4.20-5.40); White Blood Count 3.14 K/ul (4.8-10.8)
--- NOTE | 2023-10-26 09:30 | CT Scan Report ---
ABDOMEN AND PELVIS CT WITHOUT CONTRAST CT DOSE: 640.05 mGy.cm HISTORY: Right flank pain. TECHNIQUE: Multiaxial CT images of the abdomen and pelvis were performed without contrast. A dose lo wering technique was utilized adhering to the principles of ALARA. COMPARISON STUDY: Outside hospital abdomen and pelvis CT 06/27/2017. FINDINGS: A few bibasilar linear densities consistent with subsegmental atelectasis. There are scatte red bilateral pulmonary lung bases. No pneumoperitoneum. No pneumatosis. No acute fractures identifie d. There is a 1 cm nodule within the basal left lower lobe abutting the mediastinal border on image 7 . The spleen is enlarged measuring 17 cm in length. This is similar to the prior study. The unenhance d liver and adrenal glands are unremarkable. Normal pancreas. Cholelithiasis. No gallbladder wall thi ckening. A 1.2 cm hypodense lesion within the lower pole the left kidney favors a cyst. Multiple bila teral renal calculi are noted. No left-sided hydronephrosis. Moderate to severe right-sided hydrouret eronephrosis secondary to a cluster of multiple obstructing stones within the distal right ureter wit h the largest on image 291 measuring 3 mm. Normal caliber abdominal aorta. There is a left lower quad rant abdominal wall mesh noted. This surrounds the left lower quadrant colostomy site there is a smal l fat-containing parastomal hernia. The bladder is unremarkable. The uterus and bilateral adnexa are within normal limits. Suboptimal evaluation for bowel pathology due to the lack of intravenous and or al contrast. However, there is no definite bowel wall thickening or obstruction. Normal appendix. IMPRESSION: 1. A cluster of small obstructing stones within the distal right ureter measuring up to 3 mm resultin g in moderate to severe right hydroureteronephrosis. 2. Multiple bilateral renal calculi. 3. Cholelithiasis. 4. Splenomegaly. This is similar to the prior study. 5. Postoperative changes as described above. 6. No bowel wall thickening or obstruction. ACT 112: Negative or not required by law. Electronically signed by: John Ramirez M.D. 10/26/2023 9:28 AM
[2023-10-26 10:45] LABS: Appearance Urine Cloudy (Clear); Bacteria Urine Automated 4+ (None Seen); Bilirubin Urine Negative (Negative); Blood Urine Trace (Negative); Cast Urine Automated 0-2 /lpf (0-2); Color Urine Yellow; Epithelial Cell Urine Auto 0-2 /hpf (0-2); Glucose Urine UA Negative (Negative); Ketones Urine Negative (Negative); Leukocyte Esterase Urine 3+ (Negative); Nitrite Urine Positive (Negative); Protein Urine Negative (Negative); RBC Urine Automated 0-2 /hpf (0-2); Specific Gravity Urine 1.011 (1.000-1.030); Urobilinogen Urine Negative (Negative); WBC Urine Automated >50 /hpf (0-5); pH Urine 7.5 (4.5-7.5)
[2023-10-26] MEDS ORDERED: MoRPHine SULFATE 2 MG/ML CARP IV PRN (11:30)
--- NOTE | 2023-10-26 11:31 | History & Physical Report ---
Date of Service October 26, 2023 Assessment & Plan (1) Hydroureter on right: Plan: Admit to med/telemetry Currently stable and nontoxic-appearing Presented to the ED today due to progression of right-sided flank pain and urinary symptoms Initially diagnosed with a UTI in the [facility] system at [facility] on 10/23/2023, UA and urine culture were obtained, CT of the abdomen pelvis confirmed known right sided kidney stones with hydroureteronephrosis Patient had been started on Macrobid without improvement in symptoms which is why she presented to our ED today Renal function is stable We called and spoke to the microbiology department at [facility] who confirmed that the patient is growing Klebsiella on her current urine culture and we will fax the results to us Urology has been consulted and is following, they request 24 hours of IV fluids and antibiotics prior to taking the patient to the OR tomorrow for stone destruction and stent placement After further discussion with the patient about her previous allergy history we will start her on ceftriaxone for now, if she has any reaction to ceftriaxone she has tolerated ciprofloxacin in the past Follow urine culture obtained today Currently receiving 1 L normal saline in the ED, will monitor for now but hold further IV fluids as she is currently stable and will be able to eat/drink until midnight Pain control with Tylenol and morphine Will order urine strainer Bilateral SCDs for DVT prophylaxis Heart healthy diet until midnight then n.p.o. in preparation for OR tomorrow with urology AM CBC, CMP, mag (2) Nephrolithiasis: Plan: See hydroureter (3) UTI (urinary tract infection): Plan: Initially diagnosed at [facility] on 10/23/2023 Patient currently growing Klebsiella on urine culture, will be waiting for faxed report and will follow Continue ceftriaxone for now and follow repeat urine culture ordered today (4) Anal cancer: Plan: Status postchemotherapy, radiation therapy, and previous resection neck approximately 8 years ago Radiation therapy caused stricture of the patient's ureters making her high risk for recurrent obstruction with even small kidney stones (5) Secondary thrombocytopenia: Plan: Platelets at 93, no signs of bleeding Would hold further NSAIDs at this time (6) SLE (systemic lupus erythematosus): Plan: Continue 2 mg prednisone daily No need for stress dose steroids at this time as she is stable and nontoxic- appearing (7) Hypothyroidism: Plan: Continue levothyroxine Plan The patient was discussed with Dr. Dent at the time of admission History of Present Illness Chief Complaint: flank pain Primary Care Provider: Caitie AdenDO Hardy is a 62-year-old female with a past medical history significant for anal cancer status post chemotherapy, surgical resection, and radiation therapy approximately 8 years ago, recurrent kidney stones, SLE, Raynaud's, secondary thrombocytopenia, medullary sponge kidney, panic disorder, hypothyroidism, who presented to the [facility] ED on 10/26/2023 due to concerns for recurrent kidney stones and possible UTI. She remained stable in the ED. Labs were significant for white blood cell count of 3.14, platelet count of 93, and UA with cloudy appearance, trace blood, nitrate positive, 3+ leukocyte Estrace, greater than 50 WBC, and 4+ bacteria. CT of the abdomen pelvis without contrast was read as "a cluster of small obstructing stones within the distal right ureter measuring up to 3 mm resulting in moderate to severe right hydroureteronephrosis. Multiple bilateral renal calculi. Cholelithiasis. Splenomegaly, this is similar to prior study. Postoperative changes as above. No bowel wall thickening or obstruction. The ED spoke with urology who will plan on taking the patient to the OR likely tomorrow for stent placement but requested medicine admission for IV fluids and antibiotics prior to the procedure. Prior to admission the patient was given 1 L normal saline and 2 doses of 10 mg IV Toradol. Patient was sitting in bed in no acute distress with her sitting bedside, history was obtained from both. She explains that she was initially seen in the urology clinic at [facility] on 10/23/2023 due to concerns for recurrent kidney stone and possible UTI. Urine culture was obtained at that time and the patient was started on Macrobid. She reportedly had a CT of the abdomen pelvis at that time as well which showed the known obstructing kidney stones but was unable to have a procedure with her Urology Department until January. She presented here today due to ongoing symptoms. No recent fever or chills, chest pain, shortness of breath, abdominal pain, nausea/vomiting, diarrhea, lower extremity swelling, and recent trauma. Has been experiencing dysuria and increased urinary frequency along with Right flank pain. She confirms that she is a full code and want her to make medical decisions for her if she got make them herself. Please refer to Dr. Dent's attestation for any changes to the treatment plan Allergies Allergy/AdvReac Type Severity Reaction Status Date / Time moxifloxacin [From Avelox] Allergy Severe Rash Verified 10/29/23 13:06 Penicillins Allergy Severe Hives Verified 10/29/23 13:06 Sulfa (Sulfonamide Allergy Severe Brain/Head Verified 10/29/23 13:06 Antibiotics) pressure cefoxitin Allergy Unknown Unknown Verified 10/29/23 13:06 vancomycin Allergy Unknown Unknown Verified 10/29/23 13:06 acetaminophen [From Tylenol] AdvReac Unknown Fever Verified 10/29/23 13:09 Antihistamines - Alkylamine AdvReac "skin Verified 10/29/23 13:06 crawling" with antihistamines Home Medications Medication Instructions Recorded Confirmed Type calcium carbonate 600 mg-vitamin 1 tab PO DAILY 10/26/23 10/26/23 History D3 10 mcg (400 unit) tablet (Calcium 600 + D(3)) carboxymethylcellulose 1 drp ophthalmic (eye) BID 10/26/23 10/26/23 History sod-hypromell 0.25 %-0.3 % eye liquid gel drops carboxymethylcellulose sodium 1 % 1 drp ophthalmic (eye) BID 10/26/23 10/26/23 History eye gel in a dropperette (TheraTears) clonazepam 1 mg tablet 1 mg PO TID PRN Anxiety/Insomnia 10/26/23 10/26/23 History docusate sodium 100 mg capsule 200 mg PO DAILY 10/26/23 10/26/23 History (Colace) inulin-sorbitol 2 gram chewable 1 tab PO DAILY 10/26/23 10/26/23 History tablet levothyroxine 25 mcg tablet 25 mcg PO DAILYBB 10/26/23 10/26/23 History naloxone 4 mg/actuation nasal spray 4 mg intranasal UD 10/26/23 10/26/23 History omeprazole 20 mg capsule,delayed 20 mg PO DAILY 10/26/23 10/26/23 History release oxycodone 5 mg tablet 5 mg PO UD PRN Severe Pain (Scale 10/26/23 10/26/23 History Score 7-10) potassium citrate 10 mEq (1,080 30 meq PO DAILY 10/26/23 10/26/23 History mg) tablet,extended release prednisone 1 mg tablet 2 mg PO DAILY 10/26/23 10/26/23 History tamsulosin 0.4 mg capsule 0.4 mg PO DAILY 10/26/23 10/26/23 History Past Med/Surg History Problem List Pancytopenia Hydronephrosis Ureteral calculi History of creation of ostomy (Acute) Renal colic on right side (Acute) UTI (urinary tract infection) (Acute) Hydroureter on right (Acute) Nephrolithiasis (Acute) Medical History Secondary thrombocytopenia Raynaud's disease Medullary sponge kidney Panic disorder Hypothyroidism SLE (systemic lupus erythematosus) Anal cancer Social History Smoking Status: Former smoker Second Hand Exposure: Yes; Do You Dip or Chew Tobacco: No; Hx Alcohol Use: No Hx Substance Use: No Preferred Language: [place] Citizen Communication Ability: Effective Patient Care Nursing Assistant Required: No Beliefs That Will Affect Care: None Current Living Situation: Spouse Feels Safe at Home: Yes Assistive Devices: Denture - Upper, Denture - Lower and Glasses Physical Exam Physical Exam: Physical Exam: General: In no acute distress, stated age, well-nourished, good hygiene HEENT: Normocephalic, atraumatic, no scleral icterus, pupils around round, symmetrical, and reactive to light, moist mucus membranes, trachea midline, no thyromegaly Chest/Pulm: No respiratory distress, symmetrical chest expansion, clear breath sounds throughout Cardiac: RRR, no murmurs noted Abdomen: Negative for ascites and bruising, normoactive bowel sounds, soft, non-tender to palpation throughout : Negative CVA tenderness bilaterally Musculoskeletal: Symmetrical and without signs of acute trauma, upper and lower extremities with full ROM, no atrophy, spasticity, or flaccidity Extremities: Radial, dorsalis pedis, and posterior tibial pulses are intact and symmetrical, no edema noted in the BL LE's Skin: Warm, dry, no rashes , lesions, or scars noted Neuro: Alert and oriented to person, place, month, year, and president, no focal defects, no tremors noted Psych: No acute distress, calm and cooperative during the exam Results & Data Results & Data Vital Signs (Past 12 Hours) Vital Signs Temp Pulse Pulse Resp BP BP Pulse Ox 10/26/23 11:00 75 18 131/75 100 10/26/23 09:00 72 20 115/66 99 10/26/23 08:19 84 18 99 10/26/23 07:17 72 18 114/67 95 10/26/23 07:16 73 10/26/23 06:41 36.5 C 83 16 104/62 98 O2 Del Method 10/26/23 11:00 Room Air 10/26/23 09:00 Room Air 10/26/23 08:19 Room Air 10/26/23 07:17 Room Air 10/26/23 07:16 10/26/23 06:41 Room Air Laboratory Results Abnormal lab results 10/26/23 10/26/23 Range/Units 07:41 09:21 WBC 3.14 L (4.8-10.8) K/ul RBC 4.14 L (4.20-5.40) M/uL Plt Count 93 L (130-400) K/uL MPV 9.3 L (9.4-12.4) fL Lymph # (Auto) 0.60 L (1.20-3.40) K/uL Platelet Estimate Decreased L (Normal) Glucose 106 H (70-99(Fasting)) mg/dl Urine Appearance Cloudy A (Clear) Urine Blood Trace H (Negative) Urine Nitrite Positive A (Negative) Ur Leukocyte Esterase 3+ H (Negative) Urine WBC (Auto) >50 H (0-5) /hpf Urine Bacteria (Auto) 4+ H (None Seen) Diagnostic Findings Abdomen/Pelvis CT 10/26/23 07:[address] WITHOUT CONTRAST CT DOSE: 640.05 mGy.cm HISTORY: Right flank pain. TECHNIQUE: Multiaxial CT images of the abdomen and pelvis were performed without contrast. A dose lowering technique was utilized adhering to the principles of ALARA. COMPARISON STUDY: Outside hospital abdomen and pelvis CT 06/27/2017. FINDINGS: A few bibasilar linear densities consistent with subsegmental atelectasis. There are scattered bilateral pulmonary lung bases. No pneumoperitoneum. No pneumatosis. No acute fractures identified. There is a 1 cm nodule within the basal left lower lobe abutting the mediastinal border on image 7. The spleen is enlarged measuring 17 cm in length. This is similar to the prior study. The unenhanced liver and adrenal glands are unremarkable. Normal pancreas. Cholelithiasis. No gallbladder wall thickening. A 1.2 cm hypodense lesion within the lower pole the left kidney favors a cyst. Multiple bilateral renal calculi are noted. No left-sided hydronephrosis. Moderate to severe right- sided hydroureteronephrosis secondary to a cluster of multiple obstructing stones within the distal right ureter with the largest on image 291 measuring 3 mm. Normal caliber abdominal aorta. There is a left lower quadrant abdominal wall mesh noted. This surrounds the left lower quadrant colostomy site there is a small fat-containing parastomal hernia. The bladder is unremarkable. The uterus and bilateral adnexa are within normal limits. Suboptimal evaluation for bowel pathology due to the lack of intravenous and oral contrast. However, there is no definite bowel wall thickening or obstruction. Normal appendix. IMPRESSION: 1. A cluster of small obstructing stones within the distal right ureter measuring up to 3 mm resulting in moderate to severe right hydroureteronephrosis. 2. Multiple bilateral renal calculi. 3. Cholelithiasis. 4. Splenomegaly. This is similar to the prior study. 5. Postoperative changes as described above. 6. No bowel wall thickening or obstruction. ACT 112: Negative or not required by law. Electronically signed by: John Ramirez M.D. 10/26/2023 9:28 AM Code Status & VTE Plan Code Status Full code VTE Prophylaxis Plan VTE Prophylaxis will be ordered: Yes Supervising Physician Co-Signing Physician Notes I personally saw and examined the patient. I verified all brown points and agree with Anthony Quigley PA-C with the following exceptions and/or additions: 62-year-old female presents to the ER with known urine tract infection with Klebsiella pneumoniae diagnosed last and kidney stones presents to the ER due to worsening pain. CT and UTI was diagnosed at [facility] however she was unable to get surgical treatment for this as an outpatient in the [facility] system therefore decided to come to [facility]. O/E HS RRR, no murmurs, Chest CTAB, Abdo SNT, no CVA tenderness A/P Ureterolithiasis / UTI - filter urine, IV fluids, ceftriaxone, NPO after midnight, consult urology for definitive management Thrombocytopenia - stable, ok to continue Toradol PRN PG Care Time/CCT Total # of Minutes Spent Total Time Spent with Patient: Total time spent is greater than 50% in coordination of care (as documented) at patient's floor/unit and/or counseling patient: [place] [address] INT INP/OBS CARE 2/55MIN Patient Type New Medical Decision Making High Complexity Diagnoses Hydroureter on right N13.4 Nephrolithiasis N20.0 UTI (urinary tract infection) N39.0 Anal cancer C21.0 Secondary thrombocytopenia D69.59 SLE (systemic lupus erythematosus) M32.9 Hypothyroidism E03.9
[2023-10-26] MEDS: cefTRIAXone SODIUM 2,000 MG/50 ML BAG IV STA (12:13)
--- NOTE | 2023-10-26 12:39 | Urology Consultation ---
Date of Consultation October 26, 2023 Assessment & Plan (1) Hydroureter on right: (2) Nephrolithiasis: (3) UTI (urinary tract infection): (4) Anal cancer: (5) Secondary thrombocytopenia: (6) SLE (systemic lupus erythematosus): (7) Hypothyroidism: Plan Patient with small obstructing stones. Patient has complicated history of urologic issues with difficulty passing small stones. Has complicated medical history with multiple comorbidities has history of malignancy with significant issues and recovery problems secondary to the anal cancer. Patient has recently undergone repair of a significant hernia. Has been dealing with ongoing issues with flank pain and possible issues related to stone. Had undergone imaging in outlying facility and found to have obstructing stones. Patient underwent further evaluation as she was unable to get in with her established urologist. Was evaluated at [facility] due to increasing issues. Had undergone repeat imaging which found persistent obstructing stones on the right. Has continued issues with pain and discomfort. Patient has extremely complicated history. Has previously been on potassium citrate for stone prevention. Patient has had issues with stone passage has been told that there is scarring in the urinary system that is likely hindering the stone passage and has previously had issues passing even 1 mm stones. Did discuss concerns including possible issues from external compression with patient's known history of malignancy also discussed possibility of stricturing within the ureter. Reviewed extensively findings on current imaging and blood work. All blood work and labs were reviewed. Patient's complicated medical and surgical history was reviewed and summarized above. Current white count is 3.14. Creatinine 0.8. Patient's urine did appear to be grossly positive with possible infection. Did discuss possibility of contamination. Hemoglobin was 12.4. Imaging was reviewed interpreted by myself. Does appear to have obstructing stone with hydronephrosis on the right. Please see full report for radiology interpretation. Reviewed extensively options moving forward. Discussed supportive care maximum expulsion therapy hydration and close monitoring. Did discuss possible options for intervention if unable to pass stone. Did discuss patient would likely need antibiotics for coverage of possible infection before intervention directly on stone. Could consider moving forward with stent if patient develops significant fever chills or severe intractable pain we will consider moving forward with stent alone. Did discuss possible intervention on stone over the next day or 2. If patient is able to tolerate antibiotics may be able to move forward with intervention. Does have significant antibiotic allergies. Will have to await the pharmacology reports and records from outlying facility to see full allergy list as well as previous antibiotic utilization. Will likely need broad-spectrum antibiotic coverage. Will plan to monitor patient during hospitalization and possibly move forward with intervention if patient does begin to show signs of sepsis with obstructing stone or other major issues. If able to move forward with stone treatment after adequate coverage with antibiotics would likely plan to undergo stone extraction and assessment. Patient's complicated medical and surgical history was reviewed and surmise above all imaging was reviewed interpreted by myself all labs and vitals were reviewed and summarized as above please see HPI or plan section for pertinent values and medical records for full report. History of Present Illness History of Present Illness New consultation for patient with stone, discomfort, obstruction, and ill feelings. Patient with extremely complex history. Has history of anal cancer. Has had multiple issues with stones in the past. Has been on potassium citrate. Had previously followed and [facility] with urologist there. Has had significant issues with passing stones. After previous issues with anal cancer has had increasing issues with stone passage and has had need for intervention even with small stones including a 1 mm stone that became severely obstructed and required intervention. Patient has been dealing with increasing issues with stones over the last few weeks. Had undergone a treatment for hernia and has had significant issues with increasing pain had been found to have stone at outlying facility. Was unable to get in with her established urologist. Patient developed sudden onset of pain into flank going down and radiating into groin and back in waves comes and goes. Can be severe at times. Discussed and reviewed patient's family history for any history of stone disease. Also, discussed patient's medical surgery history especially related to any history of urinary issues or stone disease. Patient was being admitted by the hospitalist team and underwent intervention due to the stones and possible obstruction and is undergoing observation. Concern for possible infection. Allergies Allergy/AdvReac Type Severity Reaction Status Date / Time moxifloxacin [From Avelox] Allergy Severe Rash Unverified 10/26/23 10:34 Penicillins Allergy Severe Hives Unverified 10/26/23 10:34 Sulfa (Sulfonamide Allergy Severe Brain/Head Unverified 10/26/23 10:34 Antibiotics) pressure cefoxitin Allergy Unknown Verified 10/26/23 12:14 vancomycin Allergy Unknown Uncoded 10/26/23 11:58 Antihistames AdvReac Uncoded 10/26/23 11:34 Home Medications Medication Instructions Recorded Confirmed Type calcium carbonate 600 mg-vitamin 1 tab PO DAILY 10/26/23 10/26/23 History D3 10 mcg (400 unit) tablet (Calcium 600 + D(3)) carboxymethylcellulose 1 drp ophthalmic (eye) BID 10/26/23 10/26/23 History sod-hypromell 0.25 %-0.3 % eye liquid gel drops carboxymethylcellulose sodium 1 % 1 drp ophthalmic (eye) BID 10/26/23 10/26/23 History eye gel in a dropperette (TheraTears) clonazepam 1 mg tablet 1 mg PO TID PRN Anxiety/Insomnia 10/26/23 10/26/23 History docusate sodium 100 mg capsule 200 mg PO DAILY 10/26/23 10/26/23 History (Colace) inulin-sorbitol 2 gram chewable 1 tab PO DAILY 10/26/23 10/26/23 History tablet levothyroxine 25 mcg tablet 25 mcg PO DAILYBB 10/26/23 10/26/23 History naloxone 4 mg/actuation nasal spray 4 mg intranasal UD 10/26/23 10/26/23 History omeprazole 20 mg capsule,delayed 20 mg PO DAILY 10/26/23 10/26/23 History release oxycodone 5 mg tablet 5 mg PO UD PRN Severe Pain (Scale 10/26/23 10/26/23 History Score 7-10) potassium citrate 10 mEq (1,080 30 meq PO DAILY 10/26/23 10/26/23 History mg) tablet,extended release prednisone 1 mg tablet 2 mg PO DAILY 10/26/23 10/26/23 History tamsulosin 0.4 mg capsule 0.4 mg PO DAILY 10/26/23 10/26/23 History Patient History Medical History Secondary thrombocytopenia Raynaud's disease Medullary sponge kidney Panic disorder Hypothyroidism SLE (systemic lupus erythematosus) Anal cancer Social History Smoking Status: Never smoker Feels Safe at Home: Yes Review of Systems Review of Systems: All systems reviewed & are unremarkable except as noted in HPI & below Physical Exam Physical Exam: General: Alert and oriented x 3 in no acute distress. Patient is well nourished and well kept. HEENT: Normocephalic Atraumatic. Inspection normal. Cranial Nerves 2-12 Grossly intact. Nares are clear. Neck is supple. Normal inspection of face. Normal inspection of neck. Neurologic: No deficits on inspection. Baseline for motor function and sensory. Psychologic: Normal affect. Respiratory: Nonlabored. No use of accessory muscles. No tachypnea or dyspnea. Cardiovascular: No tachycardia Skin: [place] and Dry. No rashes or visible lesions. Extremities: Moving without issues. No motor deficits on inspection Lymphatics: No edema Abdomen: Soft Non-distended. No rebound or guarding. Results & Data Vital Signs (Past 12 Hours) Vital Signs Temp Pulse Pulse Resp BP BP Pulse Ox 10/26/23 11:00 75 18 131/75 100 10/26/23 09:00 72 20 115/66 99 10/26/23 08:19 84 18 99 10/26/23 07:17 72 18 114/67 95 10/26/23 07:16 73 10/26/23 06:41 36.5 C 83 16 104/62 98 O2 Del Method 10/26/23 11:00 Room Air 10/26/23 09:00 Room Air 10/26/23 08:19 Room Air 10/26/23 07:17 Room Air 10/26/23 07:16 10/26/23 06:41 Room Air PG Care Time/CCT Total # of Minutes Spent Total Time Spent with Patient: Total time spent is greater than 50% in coordination of care (as documented) at patient's floor/unit and/or counseling patient: Coding Level of Care Code 26716 IN/OBS CONSULT LVL 5,80M Diagnoses Hydroureter on right N13.4 Nephrolithiasis N20.0 UTI (urinary tract infection) N39.0 Anal cancer C21.0 Secondary thrombocytopenia D69.59 SLE (systemic lupus erythematosus) M32.9 Hypothyroidism E03.9
[2023-10-26] MEDS: LACTATED RINGER'S 1,000 ML IV SCH (16:32)
[2023-10-26] MEDS ORDERED: HYDROmorphone INJ 0.5 MG/0.5 ML SYR IV PRN (20:27)
[2023-10-26] MEDS: KETOROLAC TROMETHAMINE 15 MG/ML VIAL IV PRN (22:17)
[2023-10-27] MEDS: ONDANSETRON INJ 2 MG/ML 2 ML VIAL IV PRN (03:22)
[2023-10-27] MEDS: LEVOTHYROXINE SODIUM 25 MCG TABLET PO SCH (06:11)
[2023-10-27 07:44] LABS: Hematocrit (blood only) 33.9 % (37.0-47.0); Hemoglobin 11.1 g/dl (12.0-16.0); Immature Granulocytes # (auto) 0.01 K/uL (0.01-0.20); Immature Granulocytes % (auto) 0.4 %; Lymphocytes # (auto) 0.49 K/uL (1.20-3.40); Lymphocytes % (auto) 20.9 %; Mean Corpuscular Hemoglobin 30.2 pg (25.0-34.0); Mean Corpuscular Hgb Conc 32.7 g/dL (32.0-36.0); Mean Corpuscular Volume 92.1 fL (80.0-100.0); Mean Platelet Volume 9.4 fL (9.4-12.4); Monocytes # (auto) 0.26 K/uL (0.11-0.59); Monocytes % (auto) 11.1 %; Neutrophils # (auto) 1.59 K/uL (1.40-6.50); Neutrophils % (auto) 67.6 %; Platelet Count 72 K/uL (130-400); RDW Coefficient of Variation 13.8 % (11.5-14.5); RDW Standard Deviation 46.7 fL (36.4-46.3); Red Blood Count 3.68 M/uL (4.20-5.40); White Blood Count 2.35 K/ul (4.8-10.8)
[2023-10-27] MEDS: TAMSULOSIN HCL 0.4 MG CAP PO SCH (07:56)
[2023-10-27] MEDS: PANTOprazole 40 MG TAB PO SCH (07:56)
[2023-10-27] MEDS: predniSONE 1 MG TAB PO SCH (07:56)
[2023-10-27 08:07] LABS: BUN Creatinine Ratio 18.3 (10-20); Calcium 8.6 mg/dl (8.6-10.3); Creatinine Clr Calc Pharmacy 64.7 ml/min; Est GFR (African American) 76.9 ml/min; Est GFR (Non-African American) 66.3 ml/min; Magnesium 1.8 mg/dl (1.7-2.4); Potassium 4.3 mmol/L (3.5-5.1)
--- NOTE | 2023-10-27 09:10 | Urology Progress Note ---
Date of Service October 27, 2023 Assessment & Plan (1) UTI (urinary tract infection): (2) Ureteral calculi: (3) Hydronephrosis: Plan 62 yo/F admitted with small obstructing stones within the distal right ureter measuring up to 3 mm resulting in moderate to severe right hydroureteronephrosis and concern for infection. Afebrile with stable vitals. Labs today show a wbc 2.35, hemoglobin 11.1, creatinine 0.93. Urine culture prelim gram negative bacilli. We discussed stone management options. Discussed supportive care with max expulsion therapy and close monitoring. We discussed cystoscopy and stent placement. Ureteral stents were discussed as well as postoperative issues and pain management. She is aware a second procedure would be needed for stone treatment. We discussed that she would need antibiotic coverage for infection prior to stone intervention. Discussed possibility of stone treatment later this week after she has been on antibiotics for a few more days. Risks and benefits were discussed. Also discussed that if she would develop severe pain, fever, or other acute changes then that may necessitate urgent surgical intervention with stent alone. At present, she is stable and pain is well-controlled. She would prefer one procedure for stone treatment later this week if possible. No plan for intervention today. Okay for diet. Will tentatively plan for cystoscopy, right retrograde pyelogram, right ureteral stent placement, possible laser lithotripsy/stone treatment depending on findings on Friday10/29/[address] Bonilla. Continue supportive care. Continue antibiotics and tailor as culture data becomes available. Urology will follow. Please consult our service urgently if patient develops fever, intractable pain, or other acute changes as this may necessitate urgent surgical intervention. Plan of care reviewed with Dr. Bonilla, on-call urologist. Admission and Anticipated Discharge Date Admission Date: October 26, 2023 Subjective Pt seen at bedside today Awake, resting in bed on arrival No acute distress Denies noticeable stone passage She had severe pain/nausea overnight Mild pain at present Denies fever or chills Voiding without issue Denies hematuria or dysuria Has been NPO Review of Systems Constitutional: as per Subjective / HPI Genitourinary: as per Subjective / HPI Physical Exam Constitutional: no acute distress Respiratory: no respiratory distress and no labored breathing Neurologic: moves all extremities and awake Psychiatric: A+Ox3, euthymic affect Results & Data Vital Signs (Past 12 Hours) Vital Signs Temp Pulse Pulse Resp BP Pulse Ox O2 Del Method 10/27/23 08:18 36.4 C L 65 18 106/63 97 Room Air 10/27/23 07:16 59 L 10/27/23 02:45 36.5 C 70 16 102/68 98 Room Air 10/27/23 01:18 68 10/26/23 23:22 36.6 C 73 18 99/57 L 98 Room Air PG Care Time/CCT Total # of Minutes Spent Total Time Spent with Patient: Total time spent is greater than 50% in coordination of care (as documented) at patient's floor/unit and/or counseling patient: Coding Level of Care Code 13977 SUB INP/OBS CARE 235MIN Diagnoses UTI (urinary tract infection) N30.00 Hematuria presence: without hematuria Urinary tract infection type: acute cystitis Ureteral calculi N20.1 Hydronephrosis N13.30 (1) UTI (urinary tract infection) Hematuria presence: without hematuria Urinary tract infection type: acute cystitis Qualified Code(s): N30.00 - Acute cystitis without hematuria
[2023-10-27] MEDS: cefTRIAXone SODIUM 2,000 MG/50 ML BAG IV SCH (12:17)
--- NOTE | 2023-10-27 13:57 | Hospitalist Progress Note ---
Date of Service October 27, 2023 Assessment & Plan (1) Hydroureter on right: Plan: Patient admitted on account of flank pains Initially diagnosed with a UTI in the [facility] system at [facility] on 10/23/2023, UA and urine culture were obtained -CT of the abdomen pelvis confirmed known right sided kidney stones with hydroureteronephrosis Patient had been started on Macrobid without improvement in symptoms which is why she presented to our ED today We called and spoke to the microbiology department at [facility] who confirmed that the patient is growing Klebsiella on her current urine culture and we will fax the results to us Urology has been consulted, await recommendations -Possible OR today (2) UTI (urinary tract infection): Plan: Initially diagnosed at [facility] on 10/23/2023 Patient currently growing Klebsiella on urine culture, will be waiting for faxed report and will follow Continue ceftriaxone for now and follow repeat urine culture ordered today (3) Anal cancer: Plan: Status postchemotherapy, radiation therapy, and previous resection neck approximately 8 years ago Radiation therapy caused stricture of the patient's ureters making her high risk for recurrent obstruction with even small kidney stones (4) Secondary thrombocytopenia: Plan: Platelets at 93, no signs of bleeding Would hold further NSAIDs at this time (5) SLE (systemic lupus erythematosus): Plan: Continue 2 mg prednisone daily No need for stress dose steroids at this time as she is stable and nontoxic- appearing (6) Nephrolithiasis: Plan: See hydroureter (7) Hypothyroidism: Plan: Continue levothyroxine Plan continue hospitalization Admission and Anticipated Discharge Date Admission Date: October 26, 2023 Subjective patient seen and examined, lying quietly in bed, no abd pains Review of Systems Review of Systems: All systems reviewed are negative, apart from the ones contained in the history. Physical Exam Physical Exam: The patient is awake, alert and oriented 3, well developed and well nourished, normocephalic and atraumatic, lying in bed and in no acute distress. HEENT--PERRL, EOMI, mucous membranes and oropharynx mildly dry Neck--supple. No JVD. No bruits. Thyroid normal, trachea midline, no adenopathy. Heart--normal S1 and S2. No murmurs, rubs or gallops. Lungs--clear bilaterally, no respiratory distress, no accessory muscle use. Abdomen--normal bowel sounds and soft. Extremities--no cyanosis or clubbing. No edema. Dermatologic--normal skin turgor, normal color, no abnormal lymph nodes, no rash. Neurologic--cranial nerves II through XII grossly intact. Rheumatologic--normal range of motion. Psychiatric--normal affect. Results & Data Results & Data Vital Signs (Past 12 Hours) Vital Signs Temp Pulse Pulse Resp BP BP Pulse Ox 10/27/23 11:46 97.9 F 69 18 106/64 98 10/27/23 09:09 10/27/23 08:18 97.5 F L 65 18 106/63 97 10/27/23 07:16 59 L 10/27/23 02:45 97.7 F 70 16 102/68 98 O2 Del Method 10/27/23 11:46 Room Air 10/27/23 09:09 Room Air 10/27/23 08:18 Room Air 10/27/23 07:16 10/27/23 02:45 Room Air PG Care Time/CCT Total # of Minutes Spent Total Time Spent with Patient: Total time spent is greater than 50% in coordination of care (as documented) at patient's floor/unit and/or counseling patient: Coding Level of Care Code 28474 SUB INP/OBS CARE 2/35MIN Diagnoses Hydroureter on right N13.4 UTI (urinary tract infection) N30.00 Hematuria presence: without hematuria Urinary tract infection type: acute cystitis Anal cancer C21.0 Secondary thrombocytopenia D69.59 SLE (systemic lupus erythematosus) M32.9 Nephrolithiasis N20.0 Hypothyroidism E03.9 Time Spent (min) 35 (2) UTI (urinary tract infection) Hematuria presence: without hematuria Urinary tract infection type: acute cystitis Qualified Code(s): N30.00 - Acute cystitis without hematuria
[2023-10-27] MEDS: ACETAMINOPHEN 325 MG TAB PO PRN (16:57)
--- NOTE | 2023-10-28 07:42 | Urology Progress Note ---
Date of Service October 28, 2023 Assessment & Plan (1) UTI (urinary tract infection): (2) Ureteral calculi: (3) Hydronephrosis: Plan 62 yo/F admitted with small obstructing stones within the distal right ureter measuring up to 3 mm resulting in moderate to severe right hydroureteronephrosis and concern for infection. Afebrile with stable vitals. Labs today show a wbc 2.55, hemoglobin 11.6, and creatinine 0.97 Urine culture preliminary w/Klebsiella, pansensitive. She continues on Ceftriaxone. We discussed stone management options. Discussed supportive care with max expulsion therapy and close monitoring. We discussed cystoscopy and stent placement. Ureteral stents were discussed as well as postoperative issues and pain management. She is aware a second procedure would be needed for stone treatment. We discussed that she would need antibiotic coverage for infection prior to stone intervention. Discussed possibility of stone treatment later this week after she has been on antibiotics for a few more days. Risks and benefits were discussed. Also discussed that if she would develop severe pain, fever, or other acute changes then that may necessitate urgent surgical intervention with stent alone. At present, she is stable and her pain is well-controlled. She would prefer one procedure for stone treatment later this week after being on antibiotics if possible. Will tentatively plan for cystoscopy, right retrograde pyelogram, right ureteral stent placement, possible ureteroscopy, laser lithotripsy/stone treatment depending on findings on Friday10/29/[address] Bonilla given there are no major changes or issues requiring sooner intervention. Continue supportive care. Continue antibiotics and tailor as culture data becomes available. Will make NPO at midnight in anticipation of procedure tomorrow 10/28. Urology will follow. Please consult our service urgently if patient develops fever, intractable pain, or other acute changes as this may necessitate urgent surgical intervention. Admission and Anticipated Discharge Date Admission Date: October 26, 2023 Subjective Pt seen at bedside today Awake, resting in bed on arrival No acute distress Denies noticeable stone passage She had bilateral flank pain overnight L>R, feels possibly due to her bowels/ostomy Denies any pain at present Denies f/c/n/v Voiding without issue Denies hematuria or dysuria Review of Systems Constitutional: as per Subjective / HPI Genitourinary: as per Subjective / HPI Physical Exam Constitutional: no acute distress Respiratory: no respiratory distress and no labored breathing Neurologic: moves all extremities and awake Psychiatric: A+Ox3, euthymic affect Results & Data Vital Signs (Past 12 Hours) Vital Signs Temp Pulse Pulse Resp BP BP Pulse Ox 10/28/23 07:00 59 L 10/28/23 02:24 36.4 C L 66 18 122/69 97 10/28/23 00:20 73 10/27/23 23:23 10/27/23 22:29 36.4 C L 63 18 119/67 98 10/27/23 19:45 71 16 100/48 L 97 O2 Del Method 10/28/23 07:00 10/28/23 02:24 Room Air 10/28/23 00:20 10/27/23 23:23 Room Air 10/27/23 22:29 Room Air 10/27/23 19:45 Room Air PG Care Time/CCT Total # of Minutes Spent Total Time Spent with Patient: Total time spent is greater than 50% in coordination of care (as documented) at patient's floor/unit and/or counseling patient: Coding Level of Care Code 26312 SUB INP/OBS CARE 2/35MIN Diagnoses UTI (urinary tract infection) N30.00 Hematuria presence: without hematuria Urinary tract infection type: acute cystitis Ureteral calculi N20.1 Hydronephrosis N13.30 (1) UTI (urinary tract infection) Hematuria presence: without hematuria Urinary tract infection type: acute cystitis Qualified Code(s): N30.00 - Acute cystitis without hematuria
[2023-10-28 08:32] LABS: Basophils # (auto) 0.01 K/uL (0.00-0.20); Basophils % (auto) 0.4 %; Hematocrit (blood only) 34.2 % (37.0-47.0); Hemoglobin 11.6 g/dl (12.0-16.0); Immature Granulocytes # (auto) 0.01 K/uL (0.01-0.20); Immature Granulocytes % (auto) 0.4 %; Lymphocytes # (auto) 0.51 K/uL (1.20-3.40); Mean Corpuscular Hemoglobin 30.4 pg (25.0-34.0); Mean Corpuscular Hgb Conc 33.9 g/dL (32.0-36.0); Mean Corpuscular Volume 89.5 fL (80.0-100.0); Mean Platelet Volume 9.6 fL (9.4-12.4); Monocytes # (auto) 0.26 K/uL (0.11-0.59); Monocytes % (auto) 10.2 %; Neutrophils # (auto) 1.76 K/uL (1.40-6.50); Platelet Count 79 K/uL (130-400); RDW Coefficient of Variation 13.6 % (11.5-14.5); RDW Standard Deviation 44.4 fL (36.4-46.3); Red Blood Count 3.82 M/uL (4.20-5.40); White Blood Count 2.55 K/ul (4.8-10.8)
[2023-10-28 08:46] LABS: BUN Creatinine Ratio 18.6 (10-20); Calcium 8.9 mg/dl (8.6-10.3); Creatinine Clr Calc Pharmacy 65.2 ml/min; Est GFR (African American) 73.1 ml/min; Magnesium 1.8 mg/dl (1.7-2.4); Potassium 3.8 mmol/L (3.5-5.1)
[2023-10-28] MEDS: clonazePAM 1 MG TAB PO PRN (11:07)
--- NOTE | 2023-10-28 14:56 | Hospitalist Progress Note ---
Date of Service October 28, 2023 Assessment & Plan (1) Hydroureter on right: Plan: Patient admitted on account of flank pains Initially diagnosed with a UTI in the [facility] system at [facility] on 10/23/2023, UA and urine culture were obtained -CT of the abdomen pelvis confirmed known right sided kidney stones with hydroureteronephrosis Plan is for cystoscopy, lithotripsy and stent placement tentatively scheduled for Friday. -Continue empiric IV antibiotics meanwhile (2) UTI (urinary tract infection): Plan: Initially diagnosed at [facility] on 10/23/2023 Patient currently growing Klebsiella on urine culture, will be waiting for faxed report and will follow Continue ceftriaxone for now and follow repeat urine culture (3) Anal cancer: Plan: Status postchemotherapy, radiation therapy, and previous resection neck approximately 8 years ago Radiation therapy caused stricture of the patient's ureters making her high risk for recurrent obstruction with even small kidney stones (4) Secondary thrombocytopenia: Plan: Platelets at 93, no signs of bleeding Would hold further NSAIDs at this time (5) SLE (systemic lupus erythematosus): Plan: Continue 2 mg prednisone daily No need for stress dose steroids at this time as she is stable and nontoxic- appearing (6) Nephrolithiasis: Plan: See hydroureter (7) Hypothyroidism: Plan: Continue levothyroxine Plan continue hospitalization Admission and Anticipated Discharge Date Admission Date: October 28, 2023 Subjective Patient seen and examined, no new complaints today abdominal pain is under good control, plan is for cystoscopy tomorrow Review of Systems Review of Systems: All systems reviewed are negative, apart from the ones contained in the history. Physical Exam Physical Exam: The patient is awake, alert and oriented 3, well developed and well nourished, normocephalic and atraumatic, lying in bed and in no acute distress. HEENT--PERRL, EOMI, mucous membranes and oropharynx mildly dry Neck--supple. No JVD. No bruits. Thyroid normal, trachea midline, no adenopathy. Heart--normal S1 and S2. No murmurs, rubs or gallops. Lungs--clear bilaterally, no respiratory distress, no accessory muscle use. Abdomen--normal bowel sounds and soft. Extremities--no cyanosis or clubbing. No edema. Dermatologic--normal skin turgor, normal color, no abnormal lymph nodes, no rash. Neurologic--cranial nerves II through XII grossly intact. Rheumatologic--normal range of motion. Psychiatric--normal affect. Results & Data Results & Data Vital Signs (Past 12 Hours) Vital Signs Temp Pulse Pulse Resp BP Pulse Ox O2 Del Method 10/28/23 13:00 74 10/28/23 11:39 97.9 F 79 18 126/74 96 Room Air 10/28/23 08:25 97.7 F 74 18 128/66 95 Room Air 10/28/23 07:54 Room Air 10/28/23 07:00 59 L PG Care Time/CCT Total # of Minutes Spent Total Time Spent with Patient: Total time spent is greater than 50% in coordination of care (as documented) at patient's floor/unit and/or counseling patient: Coding Level of Care Code 55652 SUB INP/OBS CARE 2/35MIN Diagnoses Hydroureter on right N13.4 UTI (urinary tract infection) N30.00 Hematuria presence: without hematuria Urinary tract infection type: acute cystitis Anal cancer C21.0 Secondary thrombocytopenia D69.59 SLE (systemic lupus erythematosus) M32.9 Nephrolithiasis N20.0 Hypothyroidism E03.9 Time Spent (min) 35 (2) UTI (urinary tract infection) Hematuria presence: without hematuria Urinary tract infection type: acute cystitis Qualified Code(s): N30.00 - Acute cystitis without hematuria
[2023-10-28] MEDS: DOCUSATE SODIUM 100 MG CAP PO ONE ×2 (16:08→16:16)
[2023-10-29 07:28] LABS: Basophils # (auto) 0.01 K/uL (0.00-0.20); Basophils % (auto) 0.3 %; Hematocrit (blood only) 32.2 % (37.0-47.0); Hemoglobin 10.7 g/dl (12.0-16.0); Immature Granulocytes # (auto) 0.01 K/uL (0.01-0.20); Immature Granulocytes % (auto) 0.3 %; Lymphocytes # (auto) 0.59 K/uL (1.20-3.40); Lymphocytes % (auto) 19.9 %; Mean Corpuscular Hemoglobin 29.8 pg (25.0-34.0); Mean Corpuscular Hgb Conc 33.2 g/dL (32.0-36.0); Mean Corpuscular Volume 89.7 fL (80.0-100.0); Mean Platelet Volume 9.7 fL (9.4-12.4); Monocytes # (auto) 0.22 K/uL (0.11-0.59); Monocytes % (auto) 7.4 %; Neutrophils # (auto) 2.14 K/uL (1.40-6.50); Neutrophils % (auto) 72.1 %; Platelet Count 73 K/uL (130-400); RDW Coefficient of Variation 13.3 % (11.5-14.5); RDW Standard Deviation 43.8 fL (36.4-46.3); Red Blood Count 3.59 M/uL (4.20-5.40); White Blood Count 2.97 K/ul (4.8-10.8)
[2023-10-29] MEDS: DOCUSATE SODIUM 100 MG CAP PO SCH (07:40)
[2023-10-29 07:52] LABS: BUN Creatinine Ratio 21.3 (10-20); Creatinine Clr Calc Pharmacy 78.6 ml/min; Est GFR (African American) 92.2 ml/min; Est GFR (Non-African American) 79.6 ml/min; Magnesium 1.8 mg/dl (1.7-2.4); Potassium 3.9 mmol/L (3.5-5.1)
[2023-10-29] MEDS ORDERED: DOCUSATE SODIUM 100 MG CAP PO SCH (09:00)
[2023-10-29] MEDS: HYDROmorphone INJ 0.5 MG/0.5 ML SYR IV PRN (09:40)
--- NOTE | 2023-10-29 09:57 | Urology Progress Note ---
Date of Service October 29, 2023 Assessment & Plan (1) UTI (urinary tract infection): (2) Ureteral calculi: (3) Hydronephrosis: Plan 62 yo/F admitted with small obstructing stones within the distal right ureter measuring up to 3 mm resulting in moderate to severe right hydroureteronephrosis and concern for infection. Afebrile with stable vitals. Labs todaycreatinine 0.80, WBC 2.97, hemoglobin 10.7. Urine culture w/Klebsiella, pansensitive. She continues on Ceftriaxone. Patient is NPO for stone intervention today. She wishes to proceed as previously discussed. Plan for cystoscopy, right retrograde pyelogram, right ureteral stent placement, possible ureteroscopy, laser lithotripsy/stone treatment depending on findings today with Dr. Bonilla. Risk and benefits of procedure to be reviewed with patient by Dr. Bonilla. Keep NPO for procedure. Continue supportive care and antibiotics. will follow. Attending note: Patient independently assessed, examined, interviewed, and evaluated. Patient with significant obstructing stone has had issues with passing stones. Presented with likely infectious issues. Has a number of significant comorbidities. Had a low white count. Current white count 2.97. Please see HPI and plan section for full reports. Patient has chronic steroids. Imaging have been thoroughly reviewed and interpreted by myself. Agree with note as above. Patient's vitals and labs were all reviewed. Pertinent values in the HPI and plan section. Imaging was reviewed interpreted by myself. Agree with read. Vitals were reviewed. Discussed findings extensively with patient and family. Reviewed with nurse practitioner as well as consulting physicians/team. Patient's complicated medical and surgical history was reviewed and summarized above. Patient's surgical, medical, social, and family history were all reviewed with pertinent values as above. Discussed patient's current diagnosis as well as concerns and issues. Reviewed different options moving forward. Discussed potential risks and benefits as well as possible options and concerns. Reviewed potential surgical options and interventions. Discussed potential issues and concerns related to intervention. Risk and benefits were discussed extensively with patient and any available family. Discussed potential risks related to anesthesia. Discussed risks of bleeding infection and injury. Persistent pain and discomfort with no obvious passage of the stone. Patient would like to proceed with intervention. Has completed a course of antibiotics with the likely infectious issues. Will likely need to continue antibiotics after the procedure for approximately 5 to 7 days depending on the patient tolerating the medication. Risks and benefits discussed at length for procedure. These include bleeding, infection, injury to surrounding tissues or organs, and risks associated with anesthesia. Patient states understanding and agrees to proceed. Will sign consent and schedule. Risks and benefits discussed at length for procedure. These include bleeding, infection, injury to surrounding tissues or organs, and risks associated with anesthesia. Patient states understanding and agrees to proceed. Will sign consent and schedule. Plan for Right ureteroscopy and stone treatment. Admission and Anticipated Discharge Date Admission Date: October 28, 2023 Subjective Patient seen and examined at bedside this morning. No acute issues overnight. She reports some flank discomfort this morning, improved since receiving Toradol. No fever or chills. She would like to proceed with stone treatment today as previously discussed. Review of Systems Constitutional: as per Subjective / HPI Genitourinary: as per Subjective / HPI Physical Exam Constitutional: well developed and well nourished; no acute distress Respiratory: normal respiratory effort; no respiratory distress and no labored breathing Gastrointestinal (Abdomen): Inspection/Auscultation: abdomen normal to inspection Musculoskeletal: Head/Neck/Chest: normocephalic Neurologic: moves all extremities and awake Psychiatric: Orientation: alert and oriented x 3 Results & Data Vital Signs (Past 12 Hours) Vital Signs Temp Pulse Pulse Resp BP Pulse Ox O2 Del Method 10/29/23 07:44 Room Air 10/29/23 07:32 36.7 C 67 16 129/74 97 Room Air 10/29/23 07:00 75 10/29/23 03:13 36.6 C 65 18 124/72 97 Room Air 10/28/23 23:37 59 L 10/28/23 22:49 36.6 C 58 L 16 111/65 97 Room Air PG Care Time/CCT Total # of Minutes Spent Total Time Spent with Patient: Total time spent is greater than 50% in coordination of care (as documented) at patient's floor/unit and/or counseling patient: Coding Level of Care Code 58784 SUB INP/OBS CARE 03/27MIN Diagnoses UTI (urinary tract infection) N30.00 Hematuria presence: without hematuria Urinary tract infection type: acute cystitis Ureteral calculi N20.1 Hydronephrosis N13.30 (1) UTI (urinary tract infection) Hematuria presence: without hematuria Urinary tract infection type: acute cystitis Qualified Code(s): N30.00 - Acute cystitis without hematuria
--- NOTE | 2023-10-29 11:49 | Hospitalist Progress Note ---
Date of Service October 29, 2023 Assessment & Plan (1) Hydroureter on right: Plan: Patient admitted on account of flank pains Initially diagnosed with a UTI in the [facility] system at [facility] on 10/23/2023, UA and urine culture were obtained -CT of the abdomen pelvis confirmed known right sided kidney stones with hydroureteronephrosis Plan is for cystoscopy, lithotripsy and stent placement tentatively scheduled for today by 2pm -Continue empiric IV antibiotics meanwhile (2) UTI (urinary tract infection): Plan: Initially diagnosed at [facility] on 10/23/2023 Patient currently growing Klebsiella on urine culture, will be waiting for faxed report and will follow Continue ceftriaxone for now and follow repeat urine culture (3) Anal cancer: Plan: Status postchemotherapy, radiation therapy, and previous resection neck approximately 8 years ago Radiation therapy caused stricture of the patient's ureters making her high risk for recurrent obstruction with even small kidney stones (4) Secondary thrombocytopenia: Plan: Platelets at 93, no signs of bleeding Would hold further NSAIDs at this time (5) SLE (systemic lupus erythematosus): Plan: Continue 2 mg prednisone daily No need for stress dose steroids at this time as she is stable and nontoxic- appearing (6) Nephrolithiasis: Plan: See hydroureter (7) Hypothyroidism: Plan: Continue levothyroxine (8) Pancytopenia: Plan: likely from chemo and radiation for her anal cancerr Plan continue hospitalization Admission and Anticipated Discharge Date Admission Date: October 28, 2023 Subjective seen and examined, looking foward to surgery today Review of Systems Review of Systems: All systems reviewed are negative, apart from the ones contained in the history. Physical Exam Physical Exam: The patient is awake, alert and oriented 3, well developed and well nourished, normocephalic and atraumatic, lying in bed and in no acute distress. HEENT--PERRL, EOMI, mucous membranes and oropharynx mildly dry Neck--supple. No JVD. No bruits. Thyroid normal, trachea midline, no adenopathy. Heart--normal S1 and S2. No murmurs, rubs or gallops. Lungs--clear bilaterally, no respiratory distress, no accessory muscle use. Abdomen--normal bowel sounds and soft. Extremities--no cyanosis or clubbing. No edema. Dermatologic--normal skin turgor, normal color, no abnormal lymph nodes, no rash. Neurologic--cranial nerves II through XII grossly intact. Rheumatologic--normal range of motion. Psychiatric--normal affect. Results & Data Results & Data Vital Signs (Past 12 Hours) Vital Signs Temp Pulse Pulse Resp BP Pulse Ox O2 Del Method 10/29/23 07:44 Room Air 10/29/23 07:32 98.1 F 67 16 129/74 97 Room Air 10/29/23 07:00 75 10/29/23 03:13 97.9 F 65 18 124/72 97 Room Air PG Care Time/CCT Total # of Minutes Spent Total Time Spent with Patient: Total time spent is greater than 50% in coordination of care (as documented) at patient's floor/unit and/or counseling patient: Coding Level of Care Code 21116 SUB INP/OBS CARE 2/35MIN Diagnoses Hydroureter on right N13.4 UTI (urinary tract infection) N30.00 Hematuria presence: without hematuria Urinary tract infection type: acute cystitis Anal cancer C21.0 Secondary thrombocytopenia D69.59 SLE (systemic lupus erythematosus) M32.9 Nephrolithiasis N20.0 Hypothyroidism E03.9 Pancytopenia D61.818 Time Spent (min) 35 (2) UTI (urinary tract infection) Hematuria presence: without hematuria Urinary tract infection type: acute cystitis Qualified Code(s): N30.00 - Acute cystitis without hematuria
[2023-10-29] MEDS ORDERED: PROPOFOL IV EMULSION 10 MG/ML 20 ML VIAL IV ONE (13:53)
[2023-10-29] MEDS ORDERED: LIDOCAINE 2% 2 ML VIAL/AMP(20MG/ML) INFIL ONE (13:54)
--- NOTE | 2023-10-29 14:20 | Anesthesiology Consultation ---
Date of Service October 29, 2023 Assessment & Plan Chart Review Chart Review: Acceptable Risk for Surgery and Patient NOT seen in Pre Admission Testing Consults Requested none ASA ASA3 Proposed Anesthesia Anesthesia Type: General Risk / Benefits Reviewed With: PT / POA / Parent / Guardian, Accepts Plan and Informed Consent Obtained History Surgery Operation Date: 10/29/23 14:30 Proposed Procedures p Cystoscopy, Right Retrograde Pyelogram, Stent Placement, Possible Ureteroscopy, Laser Lithotripsy - Steve Bonilla, Height/Weight Height: 5 ft 11 in Weight: 67.4 kg Allergies Allergy/AdvReac Type Severity Reaction Status Date / Time moxifloxacin [From Avelox] Allergy Severe Rash Verified 10/29/23 13:06 Penicillins Allergy Severe Hives Verified 10/29/23 13:06 Sulfa (Sulfonamide Allergy Severe Brain/Head Verified 10/29/23 13:06 Antibiotics) pressure cefoxitin Allergy Unknown Unknown Verified 10/29/23 13:06 vancomycin Allergy Unknown Unknown Verified 10/29/23 13:06 acetaminophen [From Tylenol] AdvReac Unknown Fever Verified 10/29/23 13:09 Antihistamines - Alkylamine AdvReac "skin Verified 10/29/23 13:06 crawling" with antihistamines Medications Home Medications Medication Instructions Recorded Confirmed Last Taken calcium carbonate 600 mg-vitamin 1 tab PO DAILY 10/26/23 10/26/23 10/25/23 D3 10 mcg (400 unit) tablet (Calcium 600 + D(3)) carboxymethylcellulose 1 drp ophthalmic (eye) BID 10/26/23 10/26/23 10/25/23 sod-hypromell 0.25 %-0.3 % eye liquid gel drops carboxymethylcellulose sodium 1 % 1 drp ophthalmic (eye) BID 10/26/23 10/26/23 10/25/23 eye gel in a dropperette (TheraTears) clonazepam 1 mg tablet 1 mg PO TID PRN Anxiety/Insomnia 10/26/23 10/26/23 10/25/23 docusate sodium 100 mg capsule 200 mg PO DAILY 10/26/23 10/26/23 10/25/23 (Colace) inulin-sorbitol 2 gram chewable 1 tab PO DAILY 10/26/23 10/26/23 10/25/23 tablet levothyroxine 25 mcg tablet 25 mcg PO DAILYBB 10/26/23 10/26/23 10/26/23 naloxone 4 mg/actuation nasal spray 4 mg intranasal UD 10/26/23 10/26/23 10/25/23 omeprazole 20 mg capsule,delayed 20 mg PO DAILY 10/26/23 10/26/23 10/25/23 release oxycodone 5 mg tablet 5 mg PO UD PRN Severe Pain (Scale 10/26/23 10/26/23 10/25/23 Score 7-10) potassium citrate 10 mEq (1,080 30 meq PO DAILY 10/26/23 10/26/23 10/25/23 mg) tablet,extended release prednisone 1 mg tablet 2 mg PO DAILY 10/26/23 10/26/23 10/25/23 tamsulosin 0.4 mg capsule 0.4 mg PO DAILY 10/26/23 10/26/23 10/25/23 Active Medications Generic Name Dose Route Start Last Admin Trade Name Freq PRN Reason Stop Dose Admin Acetaminophen 650 mg 10/27/23 16:16 10/28/23 11:07 Acetaminophen 325 Mg Tab PO 11/26/23 16:15 650 mg Q4H PRN Administration Fever or headache Clonazepam 1 mg 10/26/23 13:19 10/28/23 11:07 Clonazepam 1 Mg Tab PO 11/25/23 13:18 1 mg TID PRN Administration Anxiety/Insomnia Docusate Sodium 200 mg 10/29/23 09:00 10/29/23 07:40 Docusate Sodium 100 Mg Cap PO 11/28/23 08:59 200 mg DAILY SHAYY Administration Hydromorphone HCl 0.5 mg 10/26/23 20:27 10/29/23 09:40 Hydromorphone Inj 0.5 Mg/0.5 Ml Syr IV 11/09/23 20:26 0.5 mg Q3H PRN Administration Pain (6,7,8,9,10) Ceftriaxone Sodium 2,000 mg in 50 mls @ 100 mls/hr 10/27/23 12:00 10/29/23 12:26 Rocephin IV 11/01/23 11:59 Infused Q24H SHAYY Infusion Ketorolac Tromethamine 15 mg 10/26/23 20:27 10/29/23 07:59 Ketorolac Tromethamine 15 Mg/Ml Vial IV 10/31/23 20:26 15 mg Q6H PRN Administration Pain & Pre PT Levothyroxine Sodium 25 mcg 10/27/23 06:30 10/29/23 06:33 Levothyroxine Sodium 25 Mcg Tablet PO 11/26/23 06:29 25 mcg DAILYBB SHAYY Administration Ondansetron HCl 4 mg 10/27/23 02:43 10/27/23 03:22 Ondansetron Inj 2 Mg/Ml 2 Ml Vial IV 11/26/23 02:42 4 mg Q6H PRN Administration Nausea And Vomiting Pantoprazole Sodium 40 mg 10/27/23 09:00 10/29/23 07:41 Pantoprazole 40 Mg Tab PO 11/26/23 08:59 40 mg DAILY SHAYY Administration Prednisone 2 mg 10/27/23 09:00 10/29/23 07:41 Prednisone 1 Mg Tab PO 11/26/23 08:59 2 mg DAILY SHAYY Administration Tamsulosin HCl 0.4 mg 10/27/23 09:00 10/29/23 07:41 Tamsulosin Hcl 0.4 Mg Cap PO 11/26/23 08:59 0.4 mg DAILY SHAYY Administration NPO Date Last Intake of Fluids: 10/28/23 Time Last Intake of Fluids: 22:00 Last Intake of Fluids Comment: sip with pills at 0800 Date Last Intake of Solids: 10/28/23 Time Last Intake of Solids: 20:30 Past Medical History Medical History Secondary thrombocytopenia Raynaud's disease Medullary sponge kidney Panic disorder Hypothyroidism SLE (systemic lupus erythematosus) Anal cancer Exercise / Class Metabolic Activity II 4-5 Yardwork/Stairs/Walk up hill Past Anesthesia History No Hx of Anesthesia Complications and No Family Hx of Anesthesia Complications History of PONV No Hx of PONV and No Hx of Motion Sickness Social History Smoking Status: Former smoker Do You Dip or Chew Tobacco: No Hx Alcohol Use: No Hx Substance Use: No Review of Systems ROS Unobtainable: All systems reviewed & are unremarkable except as noted in HPI & below Physical Exam Vital Signs Last Vital Signs Temp 36.9 C 10/29/23 13:10 Pulse 74 10/29/23 13:10 Resp 20 10/29/23 13:10 BP 143/67 H 10/29/23 13:10 Pulse Ox 98 10/29/23 13:10 O2 Del Method Room Air 10/29/23 13:10 ENMT Mouth: + edentulous; no TMJ abnormality Thyromental Distance: > or= 3.5 Finger Breadths Mallampati Class: II Neck normal visual inspection and trachea midline; neck extension not limited Respiratory normal respiratory effort Auscultation: lungs clear to auscultation bilaterally Cardiovascular Rate/Rhythm: regular rate and regular rhythm Heart Sounds: no murmur Musculoskeletal Spine: normal cervical ROM Extremities: full ROM of extremities Neurologic moves all extremities Psychiatric Orientation: alert and oriented x 3 Testing Laboratory Results 10/29/23 06:27 10/29/23 06:27 Urine Color Yellow 10/26/23 09:21 Urine Appearance Cloudy (Clear) A 10/26/23 09:21 Urine pH 7.5 (4.5-7.5) 10/26/23 09:21 Ur Specific [place] 1.011 (1.000-1.030) 10/26/23 09:21 Urine Protein Negative (Negative) 10/26/23 09:21 Urine Glucose (UA) Negative (Negative) 10/26/23 09:21 Urine Ketones Negative (Negative) 10/26/23 09:21 Urine Nitrite Positive (Negative) A 10/26/23 09:21 Ur Leukocyte Esterase 3+ (Negative) H 10/26/23 09:21 Urine WBC (Auto) >50 /hpf (0-5) H 10/26/23 09:21 Urine RBC (Auto) 0-2 /hpf (0-2) 10/26/23 09:21 U Hyaline Cast (Auto) 0-2 /lpf (0-2) 10/26/23 09:21 U Epithel Cells (Auto) 0-2 /hpf (0-2) 10/26/23 09:21 Urine Bacteria (Auto) 4+ (None Seen) H 10/26/23 09:21 10/26/23 09:21 Urine Culture - Final Urine,Clean Catch Klebsiella pneumoniae
[2023-10-29] MEDS ORDERED: ONDANSETRON INJ 2 MG/ML 2 ML VIAL IV PRN (14:21)
[2023-10-29] MEDS ORDERED: ePHEDrine sulfate 50 MG/ML AMP IV PRN (14:21)
[2023-10-29] MEDS ORDERED: fentaNYL citrate PF 100 MCG/2 ML VIAL IV PRN (14:21)
[2023-10-29] MEDS ORDERED: ATROPINE SULFATE 0.1 MG/ML 10ML SYR IV PRN (14:21)
[2023-10-29] MEDS ORDERED: MIDAZOLAM HCL 1 MG/ML 2ML VIAL ONE (14:29)
[2023-10-29] MEDS ORDERED: fentaNYL citrate PF 100 MCG/2 ML VIAL ONE (14:29)
[2023-10-29] MEDS ORDERED: diphenhydrAMINE 50 MG/ML VIAL ONE (14:31)
[2023-10-29] MEDS ORDERED: GLYCOPYRROLATE 0.2 MG/ML VIAL ONE (14:31)
[2023-10-29] MEDS ORDERED: HYDROCORTISONE SOD SUCCINATE 100 MG/2 ML VIAL ONE (14:32)
[2023-10-29] MEDS ORDERED: DROPERIDOL 5 MG/2 ML VIAL ONE (14:42)
[2023-10-29] MEDS ORDERED: ePHEDrine sulfate 50 MG/5 ML SYR ONE (14:52)
--- NOTE | 2023-10-29 15:24 | Operative Report ---
PG Post Operative Report Pre & Post Diagnosis Operation Date: 10/29/23 14:30 Pre-Op Diagnosis: Ureteral Calculi Post-Op Diagnosis: Ureteral Calculi I identified the patient and participated in the time-out.: Yes Procedure Operation Date: 10/29/23 14:30 Actual Procedures Cystoscopy with urethral dilation. Right Retrograde Pyelogram, Ureteroscopy, Ureteral Dilation, Stone Basket Extraction, and Stent Placement, (Right) - Steve Bonilla DO Surgeon Steve Bonilla, II, DO Segmental Wall Installer None Estimated Blood Loss 1 Findings Consistent with Post-Op Diagnosis Significant meatal stricture of the urethra. UVJ stricture with additional significant stricture of the distal ureter with stones just proximal. Hydroureter of the proximal ureter with minor stricture also dilated. Significant hydronephrosis. No obvious stones in renal pelvis. Stones fragments removed. Specimens Stone Fragments - Right Ureter Drains 7 Fr x 24 cm Right Anesthesia Type General Complications none Disposition Disposition: Recovery Room Indications Patient with bothersome stones. Risks and benefits discussed at length. Description of Procedure Patient was consented and brought back to the operating room. Patient was placed under anesthesia in the supine position and moved to the dorsal lithotomy position. Patient was prepped and draped in the regular sterile fashion. A time out was completed. A 30degree Cystoscope was placed into the urethra. A significant stricture of the meatus of the urethra had to be dilated. The scope was then advanced to the bladder and the entire bladder was examined. The UO's were identified. The UO was cannulized with a catheter and a retrograde pyelogram was completed. A wire was then placed. Signs of likely radiation cystitis with the bladder. The Rigid ureteroscope was taken into the ureter. The UVJ had a moderate stricture. A severe stricture was noted in the distal ureter. Just proximal were multiple stones between 1 to 4 mm in size. The strictures were then dilated. The stones were accessed. A basket was selected and the fragments were grasped and removed and sent for analysis. A second wire was then placed, followed by a ureteral access sheath after the rigid scope removed. The flexible scope was then taken over the second wire and advanced to the proximal ureter and renal pelvis. The entire pelvis was examined. Significant dilation of the proximal collecting system and ureter. Moderate debris within the renal pelvis. No considerable stones. The entire area was once again examined. No residual large fragments or areas of concern were noted. The scope was slowly removed with the wire left in place. Contrast was placed through the scope for a pyelogram to assist in stent placement. The entire ureter was examined as the scope was slowly removed. No obstructions or other areas of concern were noted. With the wire in place, a 7 Fr Double J stent was placed. It was confirmed with fluoroscopy. With the stent in place, the bladder was emptied. The scope was removed. The patient was cleaned, aroused from anesthesia, and transferred to the pacu in stable condition having tolerated the procedure well with no complications. I was present and participated in all aspects of the procedure. The patient will be monitored in the PACU until transferred. Plan to maintain stent for approx 2 weeks. Remove in office. I attest to the content of the Intraoperative Record and any orders documented therein. Any exceptions are noted below.
--- NOTE | 2023-10-29 15:53 | Anesthesiology Progress Note ---
Date of Service October 29, 2023 Anesthesia Post Procedure Vital Signs Vital Signs: Temp Pulse Pulse Pulse Resp BP Pulse Ox 10/29/23 15:45 79 16 130/59 L 100 10/29/23 15:35 70 12 131/56 L 100 10/29/23 15:28 36.0 C L 88 19 136/67 98 10/29/23 13:10 36.9 C 74 20 143/67 H 98 10/29/23 11:55 36.8 C 62 18 101/60 96 10/29/23 07:44 10/29/23 07:32 36.7 C 67 16 129/74 97 10/29/23 07:00 75 10/29/23 03:13 36.6 C 65 18 124/72 97 10/28/23 23:37 59 L 10/28/23 22:49 36.6 C 58 L 16 111/65 97 10/28/23 19:32 36.7 C 70 16 110/56 L 97 10/28/23 16:09 36.7 C 71 18 107/63 97 O2 Del Method O2 Flow Rate 10/29/23 15:45 Oxymask 2 10/29/23 15:35 Oxymask 6 10/29/23 15:28 Oxymask 6 10/29/23 13:10 Room Air 10/29/23 11:55 Room Air 10/29/23 07:44 Room Air 10/29/23 07:32 Room Air 10/29/23 07:00 10/29/23 03:13 Room Air 10/28/23 23:37 10/28/23 22:49 Room Air 10/28/23 19:32 Room Air 10/28/23 16:09 Room Air Pain Intensity Right Back: Pain Intensity: 5 Transfer of Care Handoff Completed per policy Notes Mental Status: alert / awake / arousable Patient Amnestic to Procedure: Yes Nausea / Vomiting: adequately controlled Pain: adequately controlled Airway Patency, RR, SpO2: stable & adequate BP & HR: stable & adequate Hydration State: stable & adequate Anesthetic Complications: no major complications apparent and Pt Satisfied with anesthetic care
--- NOTE | 2023-10-30 08:08 | Urology Progress Note ---
Date of Service October 30, 2023 Assessment & Plan (1) UTI (urinary tract infection): (2) Ureteral calculi: (3) Hydronephrosis: Plan 62 yo/F admitted with small obstructing stones within the distal right ureter measuring up to 3 mm resulting in moderate to severe right hydroureteronephrosis and concern for infection. - POD #1 s/p Cystoscopy with urethral dilation, Right Retrograde Pyelogram, Ureteroscopy, Ureteral Dilation, Stone Basket Extraction, and Stent Placement with Dr. Bonilla. - Feeling well, tolerating the stent with minimal bother. - Afebrile with stable vitals. - Labs today wbc 3.09, hemoglobin 11.0, creatinine 0.86. - Urine culture w/Klebsiella, pansensitive. - She continues on Ceftriaxone. - Plan to D/C when medically stable per primary team with course of appropriate PO antibiotics. - Recommend Tamsulosin and prn pain medication for stent management. - Will arrange outpatient follow-up for stent removal. - Expected clinical course reviewed, all questions answered - Urology will sign-off. Please call with any questions/concerns. Admission and Anticipated Discharge Date Admission Date: October 28, 2023 Subjective Pt seen at bedside this AM Awake, resting in bed on arrival No acute distress Feeling better overall Tolerating the stent with minimal bother Voiding without issue Denies f/c/n/v Review of Systems Constitutional: as per Subjective / HPI Genitourinary: as per Subjective / HPI Physical Exam Constitutional: no acute distress Respiratory: no respiratory distress and no labored breathing Neurologic: moves all extremities and awake Psychiatric: A+Ox3, euthymic affect Results & Data Vital Signs (Past 12 Hours) Vital Signs Temp Pulse Pulse Resp BP Pulse Ox O2 Del Method 10/30/23 08:05 36.7 C 72 18 114/64 97 Room Air 10/30/23 04:00 36.6 C 69 18 113/67 97 Room Air 10/30/23 00:47 63 10/29/23 23:30 36.5 C 73 18 105/61 96 Room Air PG Care Time/CCT Total # of Minutes Spent Total Time Spent with Patient: Total time spent is greater than 50% in coordination of care (as documented) at patient's floor/unit and/or counseling patient: Coding Level of Care Code 69883 SUB INP/OBS CARE 2/35MIN Diagnoses UTI (urinary tract infection) N30.00 Hematuria presence: without hematuria Urinary tract infection type: acute cystitis Ureteral calculi N20.1 Hydronephrosis N13.30 (1) UTI (urinary tract infection) Hematuria presence: without hematuria Urinary tract infection type: acute cystitis Qualified Code(s): N30.00 - Acute cystitis without hematuria
[2023-10-30 08:22] LABS: Hematocrit (blood only) 31.7 % (37.0-47.0); Mean Corpuscular Hemoglobin 30.5 pg (25.0-34.0); Mean Corpuscular Hgb Conc 34.7 g/dL (32.0-36.0); Mean Corpuscular Volume 87.8 fL (80.0-100.0); Mean Platelet Volume 9.4 fL (9.4-12.4); Platelet Count 82 K/uL (130-400); RDW Coefficient of Variation 13.5 % (11.5-14.5); RDW Standard Deviation 43.5 fL (36.4-46.3); Red Blood Count 3.61 M/uL (4.20-5.40); White Blood Count 3.09 K/ul (4.8-10.8)
[2023-10-30 08:49] LABS: BUN Creatinine Ratio 18.6 (10-20); Calcium 8.8 mg/dl (8.6-10.3); Creatinine Clr Calc Pharmacy 69.5 ml/min; Est GFR (African American) 84.5 ml/min; Est GFR (Non-African American) 72.9 ml/min; Potassium 3.8 mmol/L (3.5-5.1)
--- NOTE | 2023-10-30 09:23 | Fluoroscopy Report ---
FL retrograde includes kub CLINICAL HISTORY: RT RETROGRADE COMPARISON STUDY: None. FLUOROSCOPY TIME: 23 seconds FLUOROSCOPY IMAGES: 2 Ka,r: 2.6 mGy FINDINGS: Retrograde opacification of the dilated right renal collecting system with placement of a r ight ureteral stent. The ureteral stent appears in good position. IMPRESSION: Fluoroscopic assistance as above. ACT 112: Negative or not required by law. Electronically signed by: John Ramirez M.D. 10/30/2023 9:21 AM
--- NOTE | 2023-10-30 11:04 | Hospitalist Progress Note ---
Date of Service October 30, 2023 Assessment & Plan (1) Hydroureter on right: Plan: Patient admitted on account of flank pains Initially diagnosed with a UTI in the [facility] system at [facility] on 10/23/2023, UA and urine culture were obtained -CT of the abdomen pelvis confirmed known right sided kidney stones with hydroureteronephrosis She is now day 1 status post cystoscopy is quite tender with stone extraction and stent placement. -Hopefully discharge today (2) UTI (urinary tract infection): Plan: Initially diagnosed at [facility] on 10/23/2023 Patient currently growing Klebsiella on urine culture, will be waiting for faxed report and will follow Continue ceftriaxone for now and follow repeat urine culture (3) Anal cancer: Plan: Status postchemotherapy, radiation therapy, and previous resection neck approximately 8 years ago Radiation therapy caused stricture of the patient's ureters making her high risk for recurrent obstruction with even small kidney stones (4) Secondary thrombocytopenia: Plan: Platelets at 93, no signs of bleeding Would hold further NSAIDs at this time (5) SLE (systemic lupus erythematosus): Plan: Continue 2 mg prednisone daily No need for stress dose steroids at this time as she is stable and nontoxic- appearing (6) Nephrolithiasis: Plan: See hydroureter (7) Hypothyroidism: Plan: Continue levothyroxine (8) Pancytopenia: Plan: likely from chemo and radiation for her anal cancerr Plan continue hospitalization, hopefully Discharge today Admission and Anticipated Discharge Date Admission Date: October 28, 2023 Subjective Patient seen and examined this morning, stable status postsurgery, Review of Systems Review of Systems: All systems reviewed are negative, apart from the ones contained in the history. Physical Exam Physical Exam: The patient is awake, alert and oriented 3, well developed and well nourished, normocephalic and atraumatic, lying in bed and in no acute distress. HEENT--PERRL, EOMI, mucous membranes and oropharynx mildly dry Neck--supple. No JVD. No bruits. Thyroid normal, trachea midline, no adenopathy. Heart--normal S1 and S2. No murmurs, rubs or gallops. Lungs--clear bilaterally, no respiratory distress, no accessory muscle use. Abdomen--normal bowel sounds and soft. Extremities--no cyanosis or clubbing. No edema. Dermatologic--normal skin turgor, normal color, no abnormal lymph nodes, no rash. Neurologic--cranial nerves II through XII grossly intact. Rheumatologic--normal range of motion. Psychiatric--normal affect. Results & Data Results & Data Vital Signs (Past 12 Hours) Vital Signs Temp Pulse Pulse Resp BP Pulse Ox O2 Del Method 10/30/23 09:32 62 10/30/23 08:05 98.1 F 72 18 114/64 97 Room Air 10/30/23 04:00 97.9 F 69 18 113/67 97 Room Air 10/30/23 00:47 63 10/29/23 23:30 97.7 F 73 18 105/61 96 Room Air PG Care Time/CCT Total # of Minutes Spent Total Time Spent with Patient: Total time spent is greater than 50% in coordination of care (as documented) at patient's floor/unit and/or counseling patient: Coding Level of Care Code 81683 SUB INP/OBS CARE 2/35MIN Diagnoses Hydroureter on right N13.4 UTI (urinary tract infection) N30.00 Hematuria presence: without hematuria Urinary tract infection type: acute cystitis Anal cancer C21.0 Secondary thrombocytopenia D69.59 SLE (systemic lupus erythematosus) M32.9 Nephrolithiasis N20.0 Hypothyroidism E03.9 Pancytopenia D61.818 Time Spent (min) 35 (2) UTI (urinary tract infection) Hematuria presence: without hematuria Urinary tract infection type: acute cystitis Qualified Code(s): N30.00 - Acute cystitis without hematuria
--- NOTE | 2023-10-30 14:50 | Discharge Summary ---
Date of Service October 30, 2023 Admission HPI Per Admitting Provider Hayley is a 62-year-old female with a past medical history significant for anal cancer status post chemotherapy, surgical resection, and radiation therapy approximately 8 years ago, recurrent kidney stones, SLE, Raynaud's, secondary thrombocytopenia, medullary sponge kidney, panic disorder, hypothyroidism, who presented to the [facility] ED on 10/26/2023 due to concerns for recurrent kidney stones and possible UTI. She remained stable in the ED. Labs were significant for white blood cell count of 3.14, platelet count of 93, and UA with cloudy appearance, trace blood, nitrate positive, 3+ leukocyte Estrace, greater than 50 WBC, and 4+ bacteria. CT of the abdomen pelvis without contrast was read as "a cluster of small obstructing stones within the distal right ureter measuring up to 3 mm resulting in moderate to severe right hydroureteronephrosis. Multiple bilateral renal calculi. Cholelithiasis. Splenomegaly, this is similar to prior study. Postoperative changes as above. No bowel wall thickening or obstruction. The ED spoke with urology who will plan on taking the patient to the OR likely tomorrow for stent placement but requested medicine admission for IV fluids and antibiotics prior to the procedure. Prior to admission the patient was given 1 L normal saline and 2 doses of 10 mg IV Toradol. Patient was sitting in bed in no acute distress with her sitting b edside, history was obtained from both. She explains that she was initially seen in the urology clinic at [facility] on 10/23/2023 due to concerns for recurrent kidney stone and possible UTI. Urine culture was obtained at that time and the patient was started on Macrobid. She reportedly had a CT of the abdomen pelvis at that time as well which showed the known obstructing kidney stones but was unable to have a procedure with her Urology Department until January. She presented here today due to ongoing symptoms. No recent fever or chills, chest pain, shortness of breath, abdominal pain, nausea/vomiting, diarrhea, lower extremity swelling, and recent trauma. Has been experiencing dysuria and increased urinary frequency along with Right flank pain. She confirms that she is a full code and want her to make medical decisions for her if she got make them herself. Admission Exam (Per Admitting) Constitutional The patient is awake, alert and oriented 3, well developed and well nourished, normocephalic and atraumatic, lying in bed and in no acute distress. HEENT--PERRL, EOMI, mucous membranes and oropharynx mildly dry Neck--supple. No JVD. No bruits. Thyroid normal, trachea midline, no adenopathy. Heart--normal S1 and S2. No murmurs, rubs or gallops. Lungs--clear bilaterally, no respiratory distress, no accessory muscle use. Abdomen--normal bowel sounds and soft. Extremities--no cyanosis or clubbing. No edema. Dermatologic--normal skin turgor, normal color, no abnormal lymph nodes, no rash. Neurologic--cranial nerves II through XII grossly intact. Rheumatologic--normal range of motion. Psychiatric--normal affect. Discharge Data Consultations 10/26/23 11:26 ED Decision to Admit Stat 10/26/23 12:09 Consult Urology Routine Procedures Performed Operation Date: 10/29/23 14:30 Actual Procedures p Cystoscopy, Right Retrograde Pyelogram, Ureteroscopy, Ureteral Dilation, Basket Extraction,(Right) - Steve Bonilla DO s Stent Placement, (Right) - Steve Bonilla DO Hospital Course (1) Hydroureter on right: Patient admitted on account of flank pains Initially diagnosed with a UTI in the [facility] system at [facility] on 10/23/2023, UA and urine culture were obtained -CT of the abdomen pelvis confirmed known right sided kidney stones with hydroureteronephrosis She is now day 1 status post cystoscopy is quite tender with stone extraction and stent placement. -Hopefully discharge today (2) UTI (urinary tract infection): Initially diagnosed at [facility] on 10/23/2023 Patient currently growing Klebsiella on urine culture, will be waiting for faxed report and will follow Continue ceftriaxone for now and follow repeat urine culture -Discharge on PO ciprofloxacin 500mg BId for 5 days (3) Anal cancer: Status postchemotherapy, radiation therapy, and previous resection neck approximately 8 years ago Radiation therapy caused stricture of the patient's ureters making her high risk for recurrent obstruction with even small kidney stones (4) Secondary thrombocytopenia: Platelets at 93, no signs of bleeding Would hold further NSAIDs at this time (5) SLE (systemic lupus erythematosus): Continue 2 mg prednisone daily No need for stress dose steroids at this time as she is stable and nontoxic- appearing (6) Nephrolithiasis: See hydroureter (7) Hypothyroidism: Continue levothyroxine (8) Pancytopenia: likely from chemo and radiation for her anal cancerr Plan continue hospitalization, hopefully Discharge today Coding Level of Care Code 44642 INP/OBS DISCH >30 MIN Diagnoses Hydroureter on right N13.4 UTI (urinary tract infection) N30.00 Hematuria presence: without hematuria Urinary tract infection type: acute cystitis Anal cancer C21.0 Secondary thrombocytopenia D69.59 SLE (systemic lupus erythematosus) M32.9 Nephrolithiasis N20.0 Hypothyroidism E03.9 Pancytopenia D61.818 Time Spent (min) 35
[2023-10-30 15:35] VITALS: BP 111/68; PULSE 74; RESP 20; TEMP 98.1; O2SAT 98
[2023-11-06 21:22] LABS: Component 2 DNR; Source RIGHT URETERAL STONE
== END 2023-10-30 16:19 | disposition home or self-care (01) | DRG 660 ==
LOC: EDINP 06:35 → ED 06:35 → SUATTDRO 11:33 → 2N 15:32
DX: N13.6 Pyonephrosis; D69.6 Thrombocytopenia, unspecified; Z88.2 Allergy status to sulfonamides; D61.818 Other pancytopenia; E03.9 Hypothyroidism, unspecified; N30.40 Irradiation cystitis without hematuria; Z88.0 Allergy status to penicillin; B96.1 Klebsiella pneumoniae [K. pneumoniae] as the cause of diseases classified elsewhere; I73.00 Raynaud's syndrome without gangrene; M32.9 Systemic lupus erythematosus, unspecified; Z93.3 Colostomy status; Z92.3 Personal history of irradiation; Z79.890 Hormone replacement therapy

== ENCOUNTER 2023-11-13 17:54 | Inpatient (IN) ==
[2023-11-13 18:46] LABS: Basophils # (auto) 0.01 K/uL (0.00-0.20); Basophils % (auto) 0.2 %; Hematocrit (blood only) 35.5 % (37.0-47.0); Hemoglobin 11.9 g/dl (12.0-16.0); Immature Granulocytes # (auto) 0.03 K/uL (0.01-0.20); Immature Granulocytes % (auto) 0.5 %; Lymphocytes # (auto) 0.53 K/uL (1.20-3.40); Lymphocytes % (auto) 8.9 %; Mean Corpuscular Hemoglobin 30.3 pg (25.0-34.0); Mean Corpuscular Hgb Conc 33.5 g/dL (32.0-36.0); Mean Corpuscular Volume 90.3 fL (80.0-100.0); Monocytes # (auto) 0.49 K/uL (0.11-0.59); Monocytes % (auto) 8.2 %; Neutrophils # (auto) 4.92 K/uL (1.40-6.50); Neutrophils % (auto) 82.2 %; Platelet Count 95 K/uL (130-400); RDW Coefficient of Variation 13.8 % (11.5-14.5); RDW Standard Deviation 45.4 fL (36.4-46.3); Red Blood Count 3.93 M/uL (4.20-5.40); White Blood Count 5.98 K/ul (4.8-10.8)
--- NOTE | 2023-11-13 18:51 | Emergency Department Note ---
Impression & Plan UTI (urinary tract infection) ADMIT ED Provider Note HPI: History obtained from patient. The patient is a 62-year-old female who presents the emergency department with a chief complaint of fever, chills, and right flank pain. Patient states that she has had the symptoms intermittently over the past several weeks. Patient states that she had a procedure performed on 10/28 for kidney stones, she had ureteral stent placement done by Dr. Bonilla of urology. Patient states this stent was subsequently removed 2 days ago. Patient states she was here in the ER on Friday night and ultimately was discharged home, she states that she was prescribed ciprofloxacin but has been unable to take it secondary to nausea. Patient states that today the pain returned and therefore she came back to the ER to be assessed. On arrival here to the ED the patient is mildly hypotensive and mildly tachycardic, she is alert and oriented, she is afebrile on arrival and saturating well on room air. ROS: - Per HPI Differential Diagnosis: Urinary tract infection, pyelonephritis, sepsis, kidney stone, kidney abscess, amongst other potential pathologies. *Outpatient medications and allergy history reviewed. PE: General: Alert HEENT: Normocephalic, trachea midline Eyes: Extraocular eye movement is intact, no scleral erythema Pulmonary: Clear to auscultation bilaterally, no wheezing Cardio: Regular rate and rhythm GI: Abdomen is soft to palpation : No suprapubic tenderness, there is moderate right sided flank tenderness to palpation MSK: No evidence of trauma or malformation of the extremities, no edema Skin: No evidence of rash Neuro: Alert, no focal deficits Psychiatric: Cooperative INDEPENDENT INTERPRETATIONS: court monitor: (As interpreted by myself): - An order was placed for continuous cardiac monitoring - Patient was noted to be in sinus rhythm with a rate of 99 EKG: (As interpreted by myself): Rate: 100 Rhythm: Normal sinus rhythm Intervals: Within normal limits ST changes: No ST elevation Time: 1841 Chest x-ray: (As interpreted by myself): No acute disease Interventions provided in ED: -IV fluid bolus, IV Zofran, IV Toradol, IV Dilaudid, IV ciprofloxacin Medical Decision Making: IV was established and lab work obtained, patient was placed on ekg monitor tech. Lab work shows no leukocytosis, hemoglobin is stable at 11.9, platelet count is reduced at 95 however this does appear to be near the patient's baseline. CMP does not show any evidence of any critical findings, sodium is slightly reduced at 133, there is no evidence of acute kidney injury, lactic acid is normal, procalcitonin is low, urinalysis is nonspecific with 3+ blood, 3+ leukocyte esterase, there is significant pyuria. Will send urine for culture, blood culture was also sent. Given that the patient had CT imaging performed just 2 nights ago that did not show evidence of obvious obstruction but did show some urothelial thickening on the right side, I would not repeat CT imaging tonight. Patient does have some right flank pain. I discussed the above findings with on-call urology, Dr. Proctor, he states that given the patient's presenting vital signs with concern for infection on urine, patient likely should be admitted to the hospital overnight to the medicine service for IV antibiotics and urology consultation in the morning. Patient was given a dose of IV ciprofloxacin as she does have multiple antibiotic allergies. On my reassessment following IV fluids and pain control, blood pressure is greater than 100 systolic and heart rate is within normal limits. Patient is saturating well on room air and states her pain is improved. Case was discussed with the on-call midlevel provider for [facility] service and the patient was placed to the service of Dr. Rojas in stable condition for further care. Consultants/Discussions held with other healthcare providers: -Urology, Dr. Proctor -Hospitalist, Dr. Rojas Disposition discussion held by myself with: -Patient and patient's at the bedside Diagnosis: 1. Right flank pain, acute 2. History of recent right ureteral stent removal 3. Urinary tract infection, acute 4. Hypotension, acute, fluid responsive Disposition: Admission Jeffrey Vargas DO Emergency Medicine Past Med/Surg History Problem List (Updated 11/13/23 @ 22:03 by Jeffrey Vargas DO) Anxiety Colostomy status SLE (systemic lupus erythematosus) Secondary thrombocytopenia Hydronephrosis of right kidney (Acute) Pancytopenia Hydronephrosis Ureteral calculi History of creation of ostomy (Acute) Renal colic on right side (Acute) UTI (urinary tract infection) (Acute) Hydroureter on right (Acute) Nephrolithiasis (Acute) Medical History Secondary thrombocytopenia Raynaud's disease Medullary sponge kidney Panic disorder Hypothyroidism SLE (systemic lupus erythematosus) Anal cancer Social History Smoking Status: Never smoker Second Hand Exposure: Yes; Do You Dip or Chew Tobacco: No; Hx Alcohol Use: No Hx Substance Use: No Preferred Language: Armenian Communication Ability: Effective Stone Carriage Operator Required: No Beliefs That Will Affect Care: None Current Living Situation: Spouse Feels Safe at Home: Yes Assistive Devices: Denture - Upper, Denture - Lower and Glasses Allergies Allergies Allergy/AdvReac Type Severity Reaction Status Date / Time moxifloxacin [From Avelox] Allergy Severe Rash Verified 10/29/23 13:06 Penicillins Allergy Severe Hives Verified 10/29/23 13:06 Sulfa (Sulfonamide Allergy Severe Brain/Head Verified 10/29/23 13:06 Antibiotics) pressure cefoxitin Allergy Unknown Unknown Verified 10/29/23 13:06 vancomycin Allergy Unknown Unknown Verified 10/29/23 13:06 acetaminophen [From Tylenol] AdvReac Unknown Fever Verified 10/29/23 13:09 Antihistamines - Alkylamine AdvReac "skin Verified 10/29/23 13:06 crawling" with antihistamines Home Meds Home Medications Medication Instructions Recorded Confirmed calcium carbonate 600 mg-vitamin 1 tab PO DAILY 10/26/23 11/13/23 D3 10 mcg (400 unit) tablet (Calcium 600 + D(3)) carboxymethylcellulose 1 drp ophthalmic (eye) BID 10/26/23 11/13/23 sod-hypromell 0.25 %-0.3 % eye liquid gel drops carboxymethylcellulose sodium 1 % 1 drp ophthalmic (eye) BID 10/26/23 11/13/23 eye gel in a dropperette (TheraTears) clonazepam 1 mg tablet 1 mg PO TID Anxiety/Insomnia 10/26/23 11/13/23 docusate sodium 100 mg capsule 200 mg PO DAILY 10/26/23 11/13/23 (Colace) levothyroxine 25 mcg tablet 25 mcg PO DAILYBB 10/26/23 11/13/23 naloxone 4 mg/actuation nasal spray 4 mg intranasal UD 10/26/23 11/13/23 omeprazole 20 mg capsule,delayed 20 mg PO QAM 08/25/24 09/12/24 release oxycodone 5 mg tablet 5 mg PO Q4 PRN Severe Pain (Scale 10/26/23 11/13/23 Score 7-10) potassium citrate 10 mEq (1,080 30 meq PO DAILY 10/26/23 11/13/23 mg) tablet,extended release prednisone 1 mg tablet 2 mg PO DAILY 10/26/23 11/13/23 tamsulosin 0.4 mg capsule 0.4 mg PO DAILY 10/26/23 11/13/23 Results & Data (ED) Vital Signs Vital Signs - 24 hr 11/13/23 17:59 11/13/23 18:22 11/13/23 18:30 Temperature 36.8 C Temperature Source Oral Pulse Rate 109 H 97 H 96 H Pulse Rate from SpO2 Sensor 95 H Respiratory Rate 18 19 Respiratory Effort / Characteristics Non-Labored Spontaneous Respiratory Depth Normal Blood Pressure 90/61 L 100/60 Blood Pressure Mean 70 73 Blood Pressure Position Sitting Pulse Oximetry 96 95 Oxygen Delivery Method Room Air Room Air Sepsis Recent Fever Within 48 Hours No Sepsis New/Unexplained Change in Mental Status N/A Sepsis Action Taken by Nursing No Action Required 11/13/23 19:15 11/13/23 19:42 11/13/23 20:36 Temperature Temperature Source Pulse Rate 98 H 85 92 H Pulse Rate from SpO2 Sensor 97 H 94 H 92 H Respiratory Rate 19 19 15 Respiratory Effort / Characteristics Respiratory Depth Blood Pressure 107/62 115/63 118/67 Blood Pressure Mean 72 80 84 Blood Pressure Position Pulse Oximetry 96 98 95 Oxygen Delivery Method Sepsis Recent Fever Within 48 Hours Sepsis New/Unexplained Change in Mental Status Sepsis Action Taken by Nursing Laboratory Data 11/13/23 18:20 11/13/23 18:20 Lab Results 11/13/23 Range/Units 18:20 WBC 5.98 (4.8-10.8) K/ul RBC 3.93 L (4.20-5.40) M/uL Hgb 11.9 L (12.0-16.0) g/dl Hct 35.5 L (37.0-47.0) % MCV 90.3 (80.0-100.0) fL MCH 30.3 (25.0-34.0) pg MCHC 33.5 (32.0-36.0) g/dL RDW Std Deviation 45.4 (36.4-46.3) fL RDW Coeff of Bertha 13.8 (11.5-14.5) % Plt Count 95 L (130-400) K/uL MPV 10.0 (9.4-12.4) fL Immature Gran % (Auto) 0.5 % Neut % (Auto) 82.2 % Lymph % (Auto) 8.9 % Real % (Auto) 8.2 % Eos % (Auto) 0.0 % Baso % (Auto) 0.2 % Neut # (Auto) 4.92 (1.40-6.50) K/uL Lymph # (Auto) 0.53 L (1.20-3.40) K/uL Real # (Auto) 0.49 (0.11-0.59) K/uL Eos # (Auto) 0.00 (0.00-0.50) K/uL Baso # (Auto) 0.01 (0.00-0.20) K/uL Immature Gran # (Auto) 0.03 (0.01-0.20) K/uL PT 11.3 (9.0-12.0) Seconds INR 1.0 (0.9-1.1) APTT 29 (21-31) Seconds PTT Ratio 1.1 Sodium 133 L (136-145) mmol/L Potassium 4.0 (3.5-5.1) mmol/L Chloride 102 (98-107) mmol/L Carbon Dioxide 24 (21-32) mmol/L Anion Gap 7 (3-11) BUN 16 (6-23) mg/dl Creatinine 0.86 (0.6-1.2) mg/dl Est Cr Clr Drug Dosing 69.3 ml/min Est GFR ( Amer) 84.5 ml/min Est GFR (Non-Af Amer) 72.9 ml/min BUN/Creatinine Ratio 18.6 (10-20) Glucose 121 H (70-99(Fasting)) mg/dl Lactate 1.0 (0.4-2.0) mmol/L Calcium 9.1 (8.6-10.3) mg/dl Magnesium 1.8 (1.7-2.4) mg/dl Total Bilirubin 1.0 (0.2-1.0) mg/dl AST 21 (13-39) U/L ALT 19 (7-52) U/L Alkaline Phosphatase 63 (34-104) U/L Troponin I High Sens 2.9 (0-14) pg/ml Total Protein 7.9 (6.0-8.3) gm/dl Albumin 4.1 (3.4-5.0) gm/dl Globulin 3.8 (2.5-4.0) gm/dl Albumin/Globulin Ratio 1.1 (0.9-2) Procalcitonin < 0.02 (0-0.5) ng/ml Urine Color Yellow Urine Appearance Cloudy A (Clear) Urine pH 7.5 (4.5-7.5) Ur Specific [place] 1.015 (1.000-1.030) Urine Protein 1+ H (Negative) Urine Glucose (UA) Negative (Negative) Urine Ketones Negative (Negative) Urine Blood 3+ H (Negative) Urine Nitrite Negative (Negative) Urine Bilirubin Negative (Negative) Urine Urobilinogen Negative (Negative) Ur Leukocyte Esterase 3+ H (Negative) Urine WBC (Auto) >50 H (0-5) /hpf Urine RBC (Auto) >20 H (0-2) /hpf U Hyaline Cast (Auto) 3-5 H (0-2) /lpf U Epithel Cells (Auto) 0-2 (0-2) /hpf Urine Bacteria (Auto) 3+ H (None Seen) Administered Medications Discontinued Medications Hydromorphone HCl (Hydromorphone Inj 0.5 Mg/0.5 Ml Syr) 0.5 mg IV NOW STA Stop: 11/13/23 19:44 Last Admin: 11/13/23 20:01 Dose: 0.5 mg Documented By: DEXTER Sodium Chloride (Nss) 1,000 mls @ 999 mls/hr IV .Q1H1M ONE Stop: 11/13/23 19:48 Last Infusion: 11/13/23 21:34 Dose: 0 mls/hr Documented By: Infusion: 11/13/23 20:01 Dose: 0 mls/hr Documented By: Admin: 11/13/23 19:17 Dose: 999 mls/hr Documented By: DEXTER Ciprofloxacin (Cipro / D5w) 400 mg in 200 mls @ 100 mls/hr IV NOW STA; Protocol Stop: 11/13/23 21:57 Last Admin: 11/13/23 20:26 Dose: 100 mls/hr Documented By: DEXTER Ketorolac Tromethamine (Ketorolac Tromethamine 15 Mg/Ml Vial) 10 mg IV NOW ONE Stop: 11/13/23 19:45 Last Admin: 11/13/23 20:00 Dose: 10 mg Documented By: DEXTER Morphine Sulfate (Morphine Sulfate 4 Mg/Ml 1 Ml Carp\\Vial) 4 mg IV NOW STA Stop: 11/13/23 18:48 Last Admin: 11/13/23 19:58 Dose: Not Given Documented By: DEXTER Ondansetron HCl (Ondansetron Inj 2 Mg/Ml 2 Ml Vial) 4 mg IV NOW STA Stop: 11/13/23 18:48 Last Admin: 11/13/23 19:17 Dose: 4 mg Documented By: DEXTER Discharge Plan Visit Data Chief Complaint: Illness Stated Complaint: STINT REMOVED/2 DAYS AGO, VOMITING, FEVER, BACK P ED Provider: Jeffrey Vargas Discharge Problem: UTI (urinary tract infection) Patient Disposition: Admitted As Inpatient Discharge Instructions Interventions: ED Discharge Assessment Last Done: 11/13/23 21:36 Discharge Problem: UTI (urinary tract infection) Qualifiers: Urinary tract infection type: site unspecified Hematuria presence: with hematuria Qualified Code(s): N39.0 - Urinary tract infection, site not specified
[2023-11-13 18:54] LABS: Appearance Urine Cloudy (Clear); Bacteria Urine Automated 3+ (None Seen); Bilirubin Urine Negative (Negative); Blood Urine 3+ (Negative); Color Urine Yellow; Epithelial Cell Urine Auto 0-2 /hpf (0-2); Glucose Urine UA Negative (Negative); Ketones Urine Negative (Negative); Leukocyte Esterase Urine 3+ (Negative); Nitrite Urine Negative (Negative); Protein Urine 1+ (Negative); RBC Urine Automated >20 /hpf (0-2); Specific Gravity Urine 1.015 (1.000-1.030); Urobilinogen Urine Negative (Negative); WBC Urine Automated >50 /hpf (0-5); pH Urine 7.5 (4.5-7.5)
[2023-11-13 19:01] LABS: Albumin Globulin Ratio 1.1 (0.9-2); Albumin Level 4.1 gm/dl (3.4-5.0); BUN Creatinine Ratio 18.6 (10-20); Calcium 9.1 mg/dl (8.6-10.3); Creatinine Clr Calc Pharmacy 69.3 ml/min; Est GFR (African American) 84.5 ml/min; Est GFR (Non-African American) 72.9 ml/min; Globulin 3.8 gm/dl (2.5-4.0); Magnesium 1.8 mg/dl (1.7-2.4); Total Protein 7.9 gm/dl (6.0-8.3)
[2023-11-13 19:07] LABS: Troponin I High Sensitivity 2.9 pg/ml (0-14)
[2023-11-13 19:10] LABS: Partial Thromboplastin Ratio 1.1; Partial Thromboplastin Time 29 Seconds (21-31); Prothrombin Time 11.3 Seconds (9.0-12.0)
[2023-11-13] MEDS: SODIUM CHLORIDE 0.9% 1,000 ML IV ONE (19:17)
[2023-11-13] MEDS: ONDANSETRON INJ 2 MG/ML 2 ML VIAL IV STA (19:17)
[2023-11-13] MEDS: MoRPHine SULFATE 4 MG/ML 1 ML CARP\\VIAL IV STA (19:58)
[2023-11-13] MEDS: KETOROLAC TROMETHAMINE 15 MG/ML VIAL IV ONE (20:00)
[2023-11-13] MEDS: HYDROmorphone INJ 0.5 MG/0.5 ML SYR IV STA (20:01)
--- NOTE | 2023-11-13 20:11 | History & Physical Report ---
Date of Service November 13, 2023 Assessment & Plan (1) UTI (urinary tract infection): Plan: Patient had a right ureteral stent removed on Friday 11/10 Since then she has been developing worsening flank pain, chills, and fevers at home Was trialed on ciprofloxacin outpatient, but was unable to keep it down due to vomiting UA positive on arrival No leukocytosis; afebrile Blood cultures were drawn initially as patient was mildly hypotensive/tachycardic, however she quickly rebounded with fluids Lactate and procalcitonin WNL Most recent UCx on 10/26/2023 grew pansensitive Klebsiella Ciprofloxacin 400 mg IV q12h; QTc okay at 428 IV antiemetics PRN IV acetaminophen and Dilaudid PRN Fluid maintenance with LR at 100mL/hr x 2 L Urology consult appreciated Follow current UCx A.m. CBC, BMP (2) Colostomy status: Plan: Hx of rectal/colon cancer Daily colostomy care (3) Anxiety: Plan: Continue clonazepam TID (4) Secondary thrombocytopenia: (5) SLE (systemic lupus erythematosus): Plan Disposition: Admit to [facility] Full code Regular diet VTE PPx: SCDs; low risk, will defer chemical DVT PPx in the setting of pancytopenia History of Present Illness Chief Complaint: Illness Primary Care Provider: DO Hayley Richard is a 62-year-old female with PMH of rectal/colon cancer, radiation cystitis, colostomy status, SLE, nephrolithiasis, hydronephrosis, and pancytopenia. She presented on 11/12 for fever, chills, and right flank pain at home after she had a right stent removed by urology on Friday. Patient reports she was feeling good for 4 to 5 hours after the stent was removed, then developed bilateral flank pain. She took oxycodone and Tylenol at home, which did not help and she return to the ED. She rated the pain at that time is a 20/10, and characterizes it as a constant ache/throb. Some radiation down towards the groin and lower stomach. There were no alleviating symptoms; not positional. Dilaudid in the ED did not alleviate her pain. However she went home and was started on ciprofloxacin, but started running fevers at home ranging from 98 F to 102 F. Patient reports she took her regular morning medications today, but when she went to take her Cipro around lunchtime she felt nauseous and vomited. She was also unable to keep down her evening dose of ciprofloxacin. At present she rates her right flank pain as 5/10 without radiation. Patient denies smoking, tobacco use, or recent alcohol use. She has been on ciprofloxacin for the past 2 days, but has vomited after each dose. Patient's vitals are stable at time of admission. ED course: Ciprofloxacin 40 mg IV Morphine 4 mg IV Dilaudid 0.5 mg IV Toradol 10 mg IV Zofran 4 mg IV NSS 1000 mL IV ROS: Patient endorses fever, right flank pain, SALDIVAR, nausea, vomiting, abdominal pain around her colostomy, and blood in urine. Patient denies dizziness, lightheadedness, chest pain, SOB, cough, pleuritic CP, dysuria, burning with urination, lower back pain, changes in bowel habits, saddle anesthesia, or numbness/tingling in the flanks or legs. Allergies Allergy/AdvReac Type Severity Reaction Status Date / Time moxifloxacin [From Avelox] Allergy Severe Rash Verified 10/29/23 13:06 Penicillins Allergy Severe Hives Verified 10/29/23 13:06 Sulfa (Sulfonamide Allergy Severe Brain/Head Verified 10/29/23 13:06 Antibiotics) pressure cefoxitin Allergy Unknown Unknown Verified 10/29/23 13:06 vancomycin Allergy Unknown Unknown Verified 10/29/23 13:06 acetaminophen [From Tylenol] AdvReac Unknown Fever Verified 10/29/23 13:09 Antihistamines - Alkylamine AdvReac "skin Verified 10/29/23 13:06 crawling" with antihistamines Home Medications Medication Instructions Recorded Confirmed Type calcium carbonate 600 mg-vitamin 1 tab PO DAILY 10/26/23 11/13/23 History D3 10 mcg (400 unit) tablet (Calcium 600 + D(3)) carboxymethylcellulose 1 drp ophthalmic (eye) BID 10/26/23 11/13/23 History sod-hypromell 0.25 %-0.3 % eye liquid gel drops carboxymethylcellulose sodium 1 % 1 drp ophthalmic (eye) BID 10/26/23 11/13/23 History eye gel in a dropperette (TheraTears) clonazepam 1 mg tablet 1 mg PO TID Anxiety/Insomnia 10/26/23 11/13/23 History docusate sodium 100 mg capsule 200 mg PO DAILY 10/26/23 11/13/23 History (Colace) levothyroxine 25 mcg tablet 25 mcg PO DAILYBB 10/26/23 11/13/23 History naloxone 4 mg/actuation nasal spray 4 mg intranasal UD 10/26/23 11/13/23 History omeprazole 20 mg capsule,delayed 20 mg PO QAM 10/26/23 11/13/23 History release oxycodone 5 mg tablet 5 mg PO Q4 PRN Severe Pain (Scale 10/26/23 11/13/23 History Score 7-10) potassium citrate 10 mEq (1,080 30 meq PO DAILY 10/26/23 11/13/23 History mg) tablet,extended release prednisone 1 mg tablet 2 mg PO DAILY 10/26/23 11/13/23 History tamsulosin 0.4 mg capsule 0.4 mg PO DAILY 10/26/23 11/13/23 History Past Med/Surg History Problem List (Updated 11/13/23 @ 22:03 by Jeffrey Vargas DO) Anxiety Colostomy status SLE (systemic lupus erythematosus) Secondary thrombocytopenia Hydronephrosis of right kidney (Acute) Pancytopenia Hydronephrosis Ureteral calculi History of creation of ostomy (Acute) Renal colic on right side (Acute) UTI (urinary tract infection) (Acute) Hydroureter on right (Acute) Nephrolithiasis (Acute) Medical History Secondary thrombocytopenia Raynaud's disease Medullary sponge kidney Panic disorder Hypothyroidism SLE (systemic lupus erythematosus) Anal cancer Social History Smoking Status: Former smoker Second Hand Exposure: Yes; Do You Dip or Chew Tobacco: No; Hx Alcohol Use: No Hx Substance Use: No Preferred Language: Kyrgyz Communication Ability: Effective Policy Intern Required: No Beliefs That Will Affect Care: None Current Living Situation: Spouse Feels Safe at Home: Yes Safety Concerns: Feels Safe At This Time Assistive Devices: Denture - Upper, Denture - Lower and Glasses Review of Systems Review of Systems: See HPI above Physical Exam Physical Exam: General: no acute distress; pleasant affect; non-toxic appearing; cooperative; SpO2 96% RA HEENT: normocephalic, atraumatic; no scleral icterus; PERRLA; vision and hearing grossly intact Neck: supple; no lymphadenopathy; trachea midline Skin: warm, dry without signs of tenting; no cyanosis; no rashes, bruising, lesions, or erythema noted CV: chest wall NTP; RRR; S1/S2 normal; no murmurs/rubs/gallops; pulses intact and symmetric at radial, DP, and PT Lungs: no acute respiratory distress; symmetrical chest wall expansion; clear breath sounds across all lung sanchez w/o adventitious sounds; no wheezing ABD: Soft, NTP in all 4 quadrants; lower right flank is TTP; left flank NTP; colostomy on the LLQ without signs of erythema or infection; BS present; no rebound/guarding; no distention Back: Positive right-sided CVA tenderness MSK: no tics or fasciculations; no edema noted in the LEs b/l, nonerythematous Neuro: A&Ox3; normal mood and affect; fluent speech; no focal deficits; sensation grossly intact and symmetric in the LEs b/l Results & Data Results & Data Vital Signs (Past 12 Hours) Vital Signs Temp Pulse Resp BP Pulse Ox O2 Del Method 11/13/23 19:15 98 H 19 107/62 96 11/13/23 18:30 96 H 19 100/60 95 Room Air 11/13/23 18:22 97 H 11/13/23 17:59 36.8 C 109 H 18 90/61 L 96 Room Air Laboratory Results Abnormal lab results 11/13/23 Range/Units 18:20 RBC 3.93 L (4.20-5.40) M/uL Hgb 11.9 L (12.0-16.0) g/dl Hct 35.5 L (37.0-47.0) % Plt Count 95 L (130-400) K/uL Lymph # (Auto) 0.53 L (1.20-3.40) K/uL Sodium 133 L (136-145) mmol/L Glucose 121 H (70-99(Fasting)) mg/dl Urine Appearance Cloudy A (Clear) Urine Protein 1+ H (Negative) Urine Blood 3+ H (Negative) Ur Leukocyte Esterase 3+ H (Negative) Urine WBC (Auto) >50 H (0-5) /hpf Urine RBC (Auto) >20 H (0-2) /hpf U Hyaline Cast (Auto) 3-5 H (0-2) /lpf Urine Bacteria (Auto) 3+ H (None Seen) ECG Additional Comments: ECG revealed NSR at 100 bpm; QTc 428 No prior EKGs for comparison Code Status & VTE Plan Code Status Full code VTE Prophylaxis Plan VTE Prophylaxis will be ordered: Yes Supervising Physician Co-Signing Physician Notes Attending addendum: I have physically seen this patient, have supervised the ADOLFO's activities, and agree with the H&P unless as otherwise noted. Assessment and Plan: Urinary tract infection/status post right ureteral stent removal on 11-10-- Follow urine culture and sensitivity. Urine culture from 10/26/2023 growing pansensitive Klebsiella pneumoniae Patient is considered failure of oral ciprofloxacin in the outpatient setting Cipro 400 mg IV every 12 hours Zofran 4 mg IV every 6 hours as needed Acetaminophen 1 g IV every 8 hours as needed for mild pain or fever Dilaudid 0.25 mg IV every 3 hours as needed for moderate to severe pain Urology consulted Rectal/colon cancer/presence of colostomy- Daily colostomy care Anxiety- Continue clonazepam 1 mg p.o. 3 times daily Thrombocytopenia- Platelets 95 on admission, with range 72-124 PG Care Time/CCT Total # of Minutes Spent Total Time Spent with Patient: Total time spent is greater than 50% in coordination of care (as documented) at patient's floor/unit and/or counseling patient: Coding [place] [address] INT INP/OBS CARE 2/55MIN Patient Type Established Medical Decision Making Moderate Complexity Diagnoses UTI (urinary tract infection) N30.00 Hematuria presence: without hematuria Urinary tract infection type: acute cystitis Colostomy status Z93.3 Anxiety F41.9 Secondary thrombocytopenia D69.59 SLE (systemic lupus erythematosus) M32.9 (1) UTI (urinary tract infection) Hematuria presence: without hematuria Urinary tract infection type: acute cystitis Qualified Code(s): N30.00 - Acute cystitis without hematuria
[2023-11-13] MEDS: CIPROFLOXACIN / D5W 400 MG/200 ML BAG IV STA (20:26)
[2023-11-13] MEDS ORDERED: HYDROmorphone INJ 0.5 MG/0.5 ML SYR IV PRN ×2 (21:50→21:59)
[2023-11-13] MEDS ORDERED: MELATONIN 3 MG TAB PO PRN (21:50)
[2023-11-13] MEDS ORDERED: NALOXONE HCL 0.4 MG/1 ML VIAL/CARP IV PRN (22:11)
[2023-11-13] MEDS: ACETAMINOPHEN 1,000 MG/100 ML VIAL IV PRN (22:26)
[2023-11-13] MEDS: LACTATED RINGER'S 1,000 ML IV SCH (22:51)
[2023-11-13] MEDS: clonazePAM 1 MG TAB PO SCH (22:54)
[2023-11-14] MEDS: KETOROLAC TROMETHAMINE 15 MG/ML VIAL IV ONE (02:00)
[2023-11-14] MEDS: LEVOTHYROXINE SODIUM 25 MCG TABLET PO SCH (06:11)
--- NOTE | 2023-11-14 08:05 | XRay Report ---
XR chest 1V not portable CLINICAL HISTORY: Sepsis TECHNIQUE: Single frontal radiograph of the chest was obtained. Comparison: None available at the time of this dictation. FINDINGS: Metallic clips project over the left lung. The cardiomediastinal silhouette is normal. Prominence and cephalization of the vasculature is seen. No evidence of pleural effusion or pneumothorax. IMPRESSION: Mild pulmonary edema. ACT 112: Negative or not required by law. Electronically signed by: Rusty Parsons M.D. 11/14/2023 8:04 AM
[2023-11-14] MEDS: CIPROFLOXACIN / D5W 400 MG/200 ML BAG IV SCH (08:06)
[2023-11-14 08:29] LABS: Hematocrit (blood only) 30.6 % (37.0-47.0); Hemoglobin 10.4 g/dl (12.0-16.0); Immature Granulocytes # (auto) 0.05 K/uL (0.01-0.20); Immature Granulocytes % (auto) 0.9 %; Lymphocytes # (auto) 0.36 K/uL (1.20-3.40); Lymphocytes % (auto) 6.5 %; Mean Corpuscular Hemoglobin 30.4 pg (25.0-34.0); Mean Corpuscular Volume 89.5 fL (80.0-100.0); Mean Platelet Volume 9.7 fL (9.4-12.4); Monocytes # (auto) 0.49 K/uL (0.11-0.59); Monocytes % (auto) 8.9 %; Neutrophils # (auto) 4.62 K/uL (1.40-6.50); Neutrophils % (auto) 83.7 %; Platelet Count 75 K/uL (130-400); RDW Coefficient of Variation 13.9 % (11.5-14.5); RDW Standard Deviation 45.4 fL (36.4-46.3); Red Blood Count 3.42 M/uL (4.20-5.40); White Blood Count 5.52 K/ul (4.8-10.8)
[2023-11-14 08:42] LABS: BUN Creatinine Ratio 17.9 (10-20); Calcium 8.3 mg/dl (8.6-10.3); Creatinine Clr Calc Pharmacy 64.2 ml/min; Est GFR (African American) 74.9 ml/min; Est GFR (Non-African American) 64.6 ml/min; Potassium 4.1 mmol/L (3.5-5.1)
--- NOTE | 2023-11-14 10:18 | Urology Consultation ---
Date of Consultation November 14, 2023 Assessment & Plan (1) UTI (urinary tract infection): (2) Hydroureter on right: (3) Hydronephrosis: 62-year-old female with history of bilateral nephrolithiasis who is status post recent right ureteroscopy and stone treatment admitted for fever, vomiting and suspected acute UTI after stent removal on 11/11/23. Febrile this morning (Tmax 39.3), hemodynamically stable Lab work reviewedcreatinine 0.95, no leukocytosis CT imaging from 11/11 showed right hydronephrosis, bilateral nonobstructing renal stones, no obstructing stones; gas at the bladder dome, likely secondary to recent procedure/stent removal Urine culture 11/10 preliminary with pin point growth, reincubating Urine and blood cultures 11/12 are pending, follow cultures Recommend broad-spectrum antibiotics and narrow per sensitivity data when available She continues to have right flank discomfort and nausea No obstructing stones seen on her CT Recommend observation with antibiotics and supportive care for now Can consider replacing right ureteral stent if she is not improving with antibiotics Continue antibiotics, supportive care and medical management per hospital medicine service Will make n.p.o. at midnight to reassess in am will follow History of Present Illness Attending Physician: Cintia Villegas MD History of Present Illness This is a 62-year-old female with history of bilateral nephrolithiasis who is status post cystoscopy, right ureteroscopy, stone basket extraction and right stent placement on 10/29/[address] Bonilla and subsequent right ureteral stent removal in clinic on 11/10/2023. She presented to the emergency department on 11/12/2023 for evaluation of right flank pain, nausea and vomiting. Ultimately she was discharged to home. She was prescribed ciprofloxacin, but was unable to take it due to nausea and vomiting. She returned to the emergency department on 11/13/2023 for evaluation of right flank pain, fever and chills. On arrival, she was afebrile, tachycardic, and hypotensive. Lab work showed creatinine 0.86, sodium 133, WBC 5.98, hemoglobin 11.9. Urinalysis showed 3+ blood, 3+ LE, >50 WBC, >20 RBC and 3+ bacteria. Urine and blood cultures collected. She was treated with IV fluids, ketorolac, ondansetron, morphine, hydromorphone and IV ciprofloxacin in the emergency department. She was admitted to the hospital medicine service for acute UTI. CT abdomen pelvis on 11/12/2023 showed moderate right hydronephrosis with thickening of the right distal ureter and enhancement. No obstructing stones visualized. Nonobstructing calculi of bilateral kidneys. Gas within the bladder is noted. Labs today reviewedcreatinine 0.95, WBC 5.52, hemoglobin 10.4 Urine and blood cultures are pending Currently on IV ciprofloxacin Patient seen and examined at bedside this morning. She reports intermittent nausea. Reports low PO intake. Reports low colostomy output. She continues to have right flank discomfort. No abdominal pain. Reports intermittent fever and chills. Voiding spontaneously without difficulty. Allergies Allergy/AdvReac Type Severity Reaction Status Date / Time moxifloxacin [From Avelox] Allergy Severe Rash Verified 10/29/23 13:06 Penicillins Allergy Severe Hives Verified 10/29/23 13:06 Sulfa (Sulfonamide Allergy Severe Brain/Head Verified 10/29/23 13:06 Antibiotics) pressure cefoxitin Allergy Unknown Unknown Verified 10/29/23 13:06 vancomycin Allergy Unknown Unknown Verified 10/29/23 13:06 acetaminophen [From Tylenol] AdvReac Unknown Fever Verified 10/29/23 13:09 Antihistamines - Alkylamine AdvReac "skin Verified 10/29/23 13:06 crawling" with antihistamines Home Medications Medication Instructions Recorded Confirmed Type calcium carbonate 600 mg-vitamin 1 tab PO DAILY 10/26/23 11/13/23 History D3 10 mcg (400 unit) tablet (Calcium 600 + D(3)) carboxymethylcellulose 1 drp ophthalmic (eye) BID 10/26/23 11/13/23 History sod-hypromell 0.25 %-0.3 % eye liquid gel drops carboxymethylcellulose sodium 1 % 1 drp ophthalmic (eye) BID 10/26/23 11/13/23 History eye gel in a dropperette (TheraTears) clonazepam 1 mg tablet 1 mg PO TID Anxiety/Insomnia 10/26/23 11/13/23 History docusate sodium 100 mg capsule 200 mg PO DAILY 10/26/23 11/13/23 History (Colace) levothyroxine 25 mcg tablet 25 mcg PO DAILYBB 10/26/23 11/13/23 History naloxone 4 mg/actuation nasal spray 4 mg intranasal UD 10/26/23 11/13/23 History omeprazole 20 mg capsule,delayed 20 mg PO QAM 10/26/23 11/13/23 History release oxycodone 5 mg tablet 5 mg PO Q4 PRN Severe Pain (Scale 10/26/23 11/13/23 History Score 7-10) potassium citrate 10 mEq (1,080 30 meq PO DAILY 10/26/23 11/13/23 History mg) tablet,extended release prednisone 1 mg tablet 2 mg PO DAILY 10/26/23 11/13/23 History tamsulosin 0.4 mg capsule 0.4 mg PO DAILY 10/26/23 11/13/23 History Patient History Medical History Raynaud's disease Medullary sponge kidney Panic disorder Hypothyroidism Anal cancer Social History Smoking Status: Former smoker Second Hand Exposure: Yes; Do You Dip or Chew Tobacco: No; Hx Alcohol Use: No Hx Substance Use: No Preferred Language: Malawian Communication Ability: Effective [place] Shore Hand Required: No Beliefs That Will Affect Care: None Current Living Situation: Spouse Feels Safe at Home: Yes Safety Concerns: Feels Safe At This Time Assistive Devices: Denture - Upper, Denture - Lower and Glasses Review of Systems Review of Systems: All systems reviewed & are unremarkable except as noted in HPI & below Physical Exam Constitutional: well developed and well nourished; no acute distress Respiratory: normal respiratory effort; no respiratory distress and no labored breathing Gastrointestinal (Abdomen): Inspection/Auscultation: abdomen normal to inspection Musculoskeletal: Head/Neck/Chest: normocephalic Neurologic: moves all extremities and awake Psychiatric: Orientation: alert and oriented x 3 Results & Data Vital Signs (Past 12 Hours) Vital Signs Temp Pulse Resp BP Pulse Ox O2 Del Method 11/14/23 10:10 37.3 C 90 11/14/23 08:49 39.3 C H 107 H 14 100/58 L 95 Room Air 11/14/23 05:35 36.9 C PG Care Time/CCT Total # of Minutes Spent Total Time Spent with Patient: Total time spent is greater than 50% in coordination of care (as documented) at patient's floor/unit and/or counseling patient: Coding Level of Care Code 55885 IN/OBS CONSULT LVL 3,45M Diagnoses UTI (urinary tract infection) N39.0; R31.9 Hematuria presence: with hematuria Urinary tract infection type: site unspecified Hydroureter on right N13.4 Hydronephrosis N13.30 (1) UTI (urinary tract infection) Hematuria presence: with hematuria Urinary tract infection type: site unspecified Qualified Code(s): N39.0 - Urinary tract infection, site not specified; R31.9 - Hematuria, unspecified
[2023-11-14] MEDS: TAMSULOSIN HCL 0.4 MG CAP PO SCH (11:00)
[2023-11-14] MEDS: POTASSIUM CITRATE 10 MEQ TAB PO SCH (11:01)
[2023-11-14] MEDS: predniSONE 1 MG TAB PO SCH (11:01)
[2023-11-14] MEDS: PANTOprazole 40 MG TAB PO SCH (11:02)
[2023-11-14] MEDS: DOCUSATE SODIUM 100 MG CAP PO SCH (11:09)
--- NOTE | 2023-11-14 13:46 | Electrocardiogram Report ---
Test Reason : Blood Pressure : */* mmHG Vent. Rate : 100 BPM Atrial Rate : 100 BPM P-R Int : 156 ms QRS Dur : 94 ms QT Int : 332 ms P-R-T Axes : 74 -49 66 degrees QTcB Int : 428 ms Normal sinus rhythm Left axis deviation Abnormal ECG No previous ECGs available Confirmed by Leo Abraham ([id number]) on 11/14/2023 1:46:49 PM Referred By: REFERRED SELF Confirmed By: Leo Abraham
[2023-11-14 16:48] LABS: A calco-baum cmplx NotReported Not Detected (NotDetected); Bact fragilis Not Reported Not Detected (NotDetected); Blood Culture Id Panel See PCR Comment (NotDetected); C auris Not Reported Not Detected (NotDetected); Calbicans Not Reported Not Detected (NotDetected); Candida glabrata Not Reported Not Detected (NotDetected); Candida krusei Not Reported Not Detected (NotDetected); Cneoformans/gatti Not Reported Not Detected (NotDetected); Cparapsilosis Not Reported Not Detected (NotDetected); E cloacae compx Not Reported Not Detected (NotDetected); Efaecalis Not Reported DETECTED (NotDetected); Efaecium Not Reported Not Detected (NotDetected); Enterobacterales Not Reported Not Detected (NotDetected); Escherichia coli Not Reported Not Detected (NotDetected); H influenzae Not Reported Not Detected (NotDetected); K aerogenes Not Reported Not Detected (NotDetected); Koxytoca Not Reported Not Detected (NotDetected); Kpneumoniae grp Not Reported Not Detected (NotDetected); Lmonocyt Not Reported Not Detected (NotDetected); N meningitidis Not Reported Not Detected (NotDetected); P aeruginosa Not Reported Not Detected (NotDetected); Proteus spp Not Reported Not Detected (NotDetected); Salmonella spp Not Reported Not Detected (NotDetected); Staph lugdunensis Not Reported Not Detected (NotDetected); Staph spp. Not Reported Not Detected (NotDetected); Staphaureus Not Reported Not Detected (NotDetected); Staphepi Not Reported Not Detected (NotDetected); Stenmaltophilia Not Reported Not Detected (NotDetected); Strep agal(GrpB) Not Reported Not Detected (NotDetected); Strep pneum Not Reported Not Detected (NotDetected); Strep pyog (GrpA) Not Reported Not Detected (NotDetected); Strep spp Not Reported Not Detected (NotDetected); VanAB Resistant Gene VRE Not Detected (NotDetected)
[2023-11-14] MEDS: ONDANSETRON INJ 2 MG/ML 2 ML VIAL IV PRN (16:55)
[2023-11-14 17:11] LABS: Enterococcus faecalis DETECTED (NotDetected)
--- NOTE | 2023-11-14 17:42 | Hospitalist Progress Note ---
Date of Service November 14, 2023 Assessment & Plan (1) UTI (urinary tract infection): Plan: Presented with worsening flank pain, fever, chills, and vomiting at home. Had right ureteral stent removed on 11/11/2023. Has a history of medullary sponge kidney, ureteral stricture - Sepsis secondary to urinary source on admission with tachycardia, febrile, and hypotension - Was trialed on ciprofloxacin outpatient, but was unable to keep it down due to vomiting - UA positive on arrival - Lactate and procalcitonin WNL - Most recent UCx on 10/26/2023 grew pansensitive Klebsiella - CT imaging from 11/11 showed right hydronephrosis, bilateral nonobstructing renal stones, no obstructing stones; gas at the bladder dome, likely secondary to recent procedure/stent removal - Urine culture preliminarily showing gram positive cocci - Blood culture revealing gram positive cocci in chains - Enterococcus faecalis, VRE not detected - Discontinued Cipro and started Daptomycin 400 mg IV Q24H - Transthoracic echo ordered - Repeat blood cultures ordered for 11/14 AM - Will defer ID consult until Friday11/17/23 given no weekend routine consults -Continue tamsulosin, potassium citrate for kidney stone prevention - IV antiemetics PRN, IV acetaminophen and Dilaudid PRN - Urology consult appreciated > NPO at midnight in case of surgical intervention 11/14 (2) SLE (systemic lupus erythematosus): Plan: Chronic steroid therapy with prednisone 2 mg daily - Started stress dose steroids with Hydrocortisone 50 mg IV Q8H x 3 days then taper (3) Secondary thrombocytopenia: Plan: Platelets low in the 70s to 90s CT abdomen/pelvis from 1 month ago shows moderate splenomegaly at 17 cm which is similar to previous CT. Her CT abdomen/pelvis here also shows significant splenomegaly although it is not mentioned in the report Unclear history of the cause of her splenomegaly-she does follow with hematology/oncology for history of colorectal cancer and also has a history of MALT lymphoma Thrombocytopenia is listed as as a chronic diagnosis on outside records but otherwise no hematology records to review Check B12 level to assess for B12 deficiency Follow CBC Hold any anticoagulation or NSAIDs if platelets less than 50 Plan Discontinued Cipro Started Dapto Ordered echo Ordered hydrocortisone Ordered repeat blood cultures Chronic/stable conditions: History of rectal/colon cancer-s/p radiation and chemotherapy many years ago: Continue daily colostomy care Anxiety: Continue clonazepam TID -Hypothyroidism-continue home levothyroxine, check TSH in the morning as no baseline CODE STATUS: Full code VTE PPx: SCDs; low risk, will defer chemical DVT PPx in the setting of pancytopenia Admission and Anticipated Discharge Date Admission Date: November 13, 2023 Supervising Physician Co-Signing Physician Notes PA Supervision Note: I did not personally see or examine the patient today, but I verified all brown points of ANGELIQUE Reece' assessment and plan with the following exceptions/additions: None Subjective Patient seen and evaluated at bedside. She reports right flank pain, chills, intermittent nausea, and decreased appetite. She denies abdominal or suprapubic pain. We discussed her course since having her stent removed on 11/10/2023, and the current treatment plan. All questions were answered. No additional complaints or concerns at this time. Physical Exam 2 Physical Exam: General: No acute distress, nondiaphoretic, well-developed, well-nourished. Skin: The skin was without rashes, erythema, edema, or bruising. Cardiac: Regular rate and rhythm without murmurs gallops or rubs. Pulm: Clear to auscultation bilaterally without wheezes, rales or rhonchi. No respiratory distress. 97% on room air. Abdominal: Soft, nontender, nondistended. Bowel sounds present. Right-sided CVA tenderness. Colostomy on LLQ without signs of infection. Neuro: A&O x3. No focal neurological deficits. Results & Data Results & Data Vital Signs (Past 12 Hours) Vital Signs Temp Pulse Resp BP Pulse Ox O2 Del Method 11/14/23 16:50 102.9 F H 110 H 18 110/55 L 97 Room Air 11/14/23 10:10 99.1 F 90 11/14/23 08:49 102.7 F H 107 H 14 100/58 L 95 Room Air Laboratory Results Reviewed CBC Reviewed CMP Reviewed UA Reviewed urine culture Reviewed blood culture PG Care Time/CCT Total # of Minutes Spent Total Time Spent with Patient: Total time spent is greater than 50% in coordination of care (as documented) at patient's floor/unit and/or counseling patient: Coding Level of Care Code 11241 SUB INP/OBS CARE 3/50MIN Diagnoses UTI (urinary tract infection) N39.0; R31.9 Hematuria presence: with hematuria Urinary tract infection type: site unspecified SLE (systemic lupus erythematosus) M32.9 Secondary thrombocytopenia D69.59 (1) UTI (urinary tract infection) Hematuria presence: with hematuria Urinary tract infection type: site unspecified Qualified Code(s): N39.0 - Urinary tract infection, site not specified; R31.9 - Hematuria, unspecified
[2023-11-14] MEDS: HYDROCORTISONE SOD 50 MG in SYRINGE 0 ML IV SCH (18:27)
[2023-11-14] MEDS: ACETAMINOPHEN 325 MG TAB PO ONE (19:12)
[2023-11-14] MEDS: DAPTOmycin 400 MG in SYRINGE 0 ML IV SCH (19:24)
[2023-11-15 06:51] LABS: Basophils # (auto) 0.01 K/uL (0.00-0.20); Basophils % (auto) 0.2 %; Hemoglobin 12.2 g/dl (12.0-16.0); Immature Granulocytes # (auto) 0.03 K/uL (0.01-0.20); Immature Granulocytes % (auto) 0.6 %; Lymphocytes # (auto) 0.64 K/uL (1.20-3.40); Lymphocytes % (auto) 12.2 %; Mean Corpuscular Hemoglobin 29.5 pg (25.0-34.0); Mean Corpuscular Hgb Conc 32.1 g/dL (32.0-36.0); Mean Corpuscular Volume 91.8 fL (80.0-100.0); Monocytes # (auto) 0.17 K/uL (0.11-0.59); Monocytes % (auto) 3.2 %; Neutrophils % (auto) 83.8 %; Platelet Count 94 K/uL (130-400); RDW Coefficient of Variation 13.9 % (11.5-14.5); Red Blood Count 4.14 M/uL (4.20-5.40); White Blood Count 5.25 K/ul (4.8-10.8)
[2023-11-15 07:04] LABS: BUN Creatinine Ratio 17.8 (10-20); Calcium 9.1 mg/dl (8.6-10.3); Creatinine Clr Calc Pharmacy 67.8 ml/min; Potassium 3.5 mmol/L (3.5-5.1)
[2023-11-15 07:19] LABS: Thyroid Stimulating Hormone 0.817 uIu/ml (0.300-4.500)
--- NOTE | 2023-11-15 10:21 | XCELERA ---
[id number]
--- NOTE | 2023-11-15 17:11 | Hospitalist Progress Note ---
Date of Service November 15, 2023 Assessment & Plan (1) UTI (urinary tract infection): Plan: Presented with worsening flank pain, fever, chills, and vomiting at home. Had right ureteral stent removed on 11/11/2023. Has a history of medullary sponge kidney and ureteral stricture. - Sepsis secondary to urinary source on admission with tachycardia, febrile, and hypotension - Was trialed on ciprofloxacin outpatient, but was unable to keep it down due to vomiting - UA positive on arrival - Lactate and procalcitonin WNL - Most recent UCx on 10/26/2023 grew pansensitive Klebsiella - CT imaging from 11/11 showed right hydronephrosis, bilateral nonobstructing renal stones, no obstructing stones; gas at the bladder dome, likely secondary to recent procedure/stent removal - Urine culture revealed Enterococcus faecalis - Blood culture revealing gram positive cocci in chains - Enterococcus faecalis, VRE not detected - Continue Daptomycin 400 mg IV Q24H - Transthoracic echo showed no evidence of mass or vegetation. - Repeat blood cultures, pending - Will defer ID consult until Friday11/17/23 given no weekend routine consults - Continue tamsulosin, potassium citrate for kidney stone prevention - IV antiemetics PRN, IV acetaminophen and Dilaudid PRN - Urology consult appreciated > No surgical intervention needed at this time. Likely pyelo from the ureteral spasm secondary to stent removal. > If temperature > 38.5 or above, consider reimaging or ultrasound. (2) SLE (systemic lupus erythematosus): Plan: Chronic steroid therapy with prednisone 2 mg daily - Started stress dose steroids with Hydrocortisone 50 mg IV Q8H x 3 days (11/17/23) then taper (3) Secondary thrombocytopenia: Plan: Platelets low in the 70s to 90s - CT abdomen/pelvis from 1 month ago shows moderate splenomegaly at 17 cm which is similar to previous CT. Her CT abdomen/pelvis here also shows significant splenomegaly although it is not mentioned in the report - Unclear history of the cause of her splenomegaly-she does follow with hematology/oncology for history of colorectal cancer and also has a history of MALT lymphoma - Thrombocytopenia is listed as as a chronic diagnosis on outside records but otherwise no hematology records to review - B12 low-normal at 219. > Started B12 supplementation - continue at discharge. - Hold any anticoagulation or NSAIDs if platelets less than 50 Plan Started B12 supplementation Discussed case with urology Reviewed echocardiogram Will defer ID consult until 11/16 when available Chronic/stable conditions: History of rectal/colon cancer-s/p radiation and chemotherapy many years ago: Continue daily colostomy care Anxiety: Continue clonazepam TID -Hypothyroidism-continue home levothyroxine, check TSH in the morning as no baseline CODE STATUS: Full code VTE PPx: SCDs; low risk, will defer chemical DVT PPx in the setting of pancytopenia Admission and Anticipated Discharge Date Admission Date: November 13, 2023 Supervising Physician Co-Signing Physician Notes Attending Attestation - Chart reviewed, care plan d/w ANGELIQUE Reece. I agree w/ the brown components of her documentation. Dennis Hearn MD Subjective Patient seen and evaluated at bedside. She reports feeling much better today. She denies any fever, chills, nausea, or vomiting today. We had an extensive discussion about her urine and blood cultures, and the treatment plan moving forward. Patient is agreeable. All questions were answered. No additional complaints or concerns at this time. Physical Exam Physical Exam: General: No acute distress, nondiaphoretic, well-developed, well-nourished. Skin: The skin was without rashes, erythema, edema, or bruising. Cardiac: Regular rate and rhythm without murmurs gallops or rubs. Pulm: Clear to auscultation bilaterally without wheezes, rales or rhonchi. No respiratory distress. 96% on room air. Abdominal: Soft, nontender, nondistended. Bowel sounds present. Right-sided CVA tenderness. Colostomy on LLQ without signs of infection. Neuro: A&O x3. No focal neurological deficits. Results & Data Results & Data Vital Signs (Past 12 Hours) Vital Signs Temp Pulse Resp BP Pulse Ox O2 Del Method 11/15/23 15:13 97.3 F L 87 16 100/50 L 96 Room Air 11/15/23 07:14 98.1 F 70 18 107/61 97 Room Air Laboratory Results Reviewed CBC Reviewed chemistries Reviewed urine culture Reviewed blood cultures Diagnostic Findings Reviewed transthoracic echocardiogram Interpretation summary: There is no evidence of mass or vegetation. This does not rule out endocardi tis. No significant valvular heart disease. This was essentially a normal study. Left ventricular systolic function is normal. PG Care Time/CCT Total # of Minutes Spent Total Time Spent with Patient: Total time spent is greater than 50% in coordination of care (as documented) at patient's floor/unit and/or counseling patient: Coding Level of Care Code 52865 SUB INP/OBS CARE MIN Diagnoses UTI (urinary tract infection) N39.0; R31.9 Hematuria presence: with hematuria Urinary tract infection type: site unspecified SLE (systemic lupus erythematosus) M32.9 Secondary thrombocytopenia D69.59 (1) UTI (urinary tract infection) Hematuria presence: with hematuria Urinary tract infection type: site unspecified Qualified Code(s): N39.0 - Urinary tract infection, site not specified; R31.9 - Hematuria, unspecified
[2023-11-16 06:31] LABS: Basophils # (auto) 0.01 K/uL (0.00-0.20); Basophils % (auto) 0.2 %; Hematocrit (blood only) 33.4 % (37.0-47.0); Hemoglobin 11.4 g/dl (12.0-16.0); Immature Granulocytes # (auto) 0.06 K/uL (0.01-0.20); Immature Granulocytes % (auto) 1.1 %; Lymphocytes # (auto) 0.99 K/uL (1.20-3.40); Lymphocytes % (auto) 17.8 %; Mean Corpuscular Hemoglobin 30.6 pg (25.0-34.0); Mean Corpuscular Hgb Conc 34.1 g/dL (32.0-36.0); Mean Corpuscular Volume 89.5 fL (80.0-100.0); Mean Platelet Volume 10.2 fL (9.4-12.4); Monocytes # (auto) 0.23 K/uL (0.11-0.59); Monocytes % (auto) 4.1 %; Neutrophils # (auto) 4.27 K/uL (1.40-6.50); Neutrophils % (auto) 76.8 %; Platelet Count 120 K/uL (130-400); RDW Coefficient of Variation 13.8 % (11.5-14.5); RDW Standard Deviation 45.4 fL (36.4-46.3); Red Blood Count 3.73 M/uL (4.20-5.40); White Blood Count 5.56 K/ul (4.8-10.8)
[2023-11-16 06:52] LABS: BUN Creatinine Ratio 31.8 (10-20); Creatinine Clr Calc Pharmacy 71.8 ml/min; Est GFR (African American) 85.7 ml/min; Potassium 3.6 mmol/L (3.5-5.1)
[2023-11-16 07:12] VITALS: TEMP 97.9
[2023-11-16] MEDS: CYANOCOBALAMIN (B-12) 100 MCG TABLET PO SCH (08:49)
--- NOTE | 2023-11-16 09:02 | Hospitalist Progress Note ---
Date of Service November 16, 2023 Assessment & Plan (1) UTI (urinary tract infection): Plan: Presented with worsening flank pain, fever, chills, and vomiting at home. Had right ureteral stent removed on 11/11/2023. Has a history of medullary sponge kidney and ureteral stricture. - Sepsis secondary to urinary source on admission with tachycardia, febrile, and hypotension - Was trialed on ciprofloxacin outpatient, but was unable to keep it down due to vomiting - UA positive on arrival - Lactate and procalcitonin WNL - Most recent UCx on 10/26/2023 grew pansensitive Klebsiella - CT imaging from 11/11 showed right hydronephrosis, bilateral nonobstructing renal stones, no obstructing stones; gas at the bladder dome, likely secondary to recent procedure/stent removal - Urine culture revealed Enterococcus faecalis. Sensitivities show resistance to Cipro, Levaquin, streptomycin synergy, tetracycline. - Blood culture revealing gram positive cocci in chains - Enterococcus faecalis, VRE not detected - Repeat blood cultures negative x 24 hours - Continue Daptomycin 400 mg IV Q24H - Transthoracic echo showed no evidence of mass or vegetation. - Will defer ID consult until Friday11/17/23 given no weekend routine consults - Continue tamsulosin, potassium citrate for kidney stone prevention - IV antiemetics PRN, IV acetaminophen and Dilaudid PRN - Urology consult appreciated > No surgical intervention needed at this time. Likely pyelo from the ureteral spasm secondary to stent removal. > If temperature > 38.5 or above, consider reimaging or ultrasound. (2) SLE (systemic lupus erythematosus): Plan: Chronic steroid therapy with prednisone 2 mg daily - Started stress dose steroids with Hydrocortisone 50 mg IV Q8H x 3 days (11/17/23) then taper (3) Secondary thrombocytopenia: Plan: Platelets low in the 70s to 90s - CT abdomen/pelvis from 1 month ago shows moderate splenomegaly at 17 cm which is similar to previous CT. Her CT abdomen/pelvis here also shows significant splenomegaly although it is not mentioned in the report - Unclear history of the cause of her splenomegaly-she does follow with hematology/oncology for history of colorectal cancer and also has a history of MALT lymphoma - Thrombocytopenia is listed as as a chronic diagnosis on outside records but otherwise no hematology records to review - B12 low-normal at 219. > Started B12 supplementation - continue at discharge. - Hold any anticoagulation or NSAIDs if platelets less than 50 (4) Enterococcal bacteremia: Plan Will defer ID consult until 11/16 when available Chronic/stable conditions: History of rectal/colon cancer-s/p radiation and chemotherapy many years ago: Continue daily colostomy care Anxiety: Continue clonazepam TID -Hypothyroidism-continue home levothyroxine, check TSH in the morning as no baseline CODE STATUS: Full code VTE PPx: SCDs; low risk, will defer chemical DVT PPx in the setting of pancytopenia Admission and Anticipated Discharge Date Admission Date: November 13, 2023 Supervising Physician Co-Signing Physician Notes Attending Attestation - Chart reviewed, care plan d/w ANGELIQUE Reece. I agree w/ the brown components of her documentation with the following additional diagnosis --- enterococcal bacteremia. Patient with enterococcal UTI/bacteremia. Sensitive to amp, sensitive to dapto. Unfortunately has PCN allergy. Renew IV daptomycin daily. Can wean stress dose IV steroids. Dennis Hearn MD Subjective Patient seen and evaluated in bedside chair. She continues to report that she is feeling well. She notes that her appetite is good, slept well last night. She denies any fever, chills, pain, or urinary symptoms. She is anxious for infectious disease's input tomorrow. No additional complaints or concerns at this time. Physical Exam Physical Exam: General: No acute distress, nondiaphoretic, well-developed, well-nourished. Skin: The skin was without rashes, erythema, edema, or bruising. Cardiac: Regular rate and rhythm without murmurs gallops or rubs. Pulm: Clear to auscultation bilaterally without wheezes, rales or rhonchi. No respiratory distress. 98% on room air. Abdominal: Soft, nontender, nondistended. Bowel sounds present. Colostomy on LLQ without signs of infection. No CVA tenderness bilaterally. Neuro: A&O x3. No focal neurological deficits. Results & Data Results & Data Vital Signs (Past 12 Hours) Vital Signs Temp Pulse Resp BP Pulse Ox O2 Del Method 11/16/23 07:45 Room Air 11/16/23 07:09 97.9 F 64 18 124/71 98 Room Air Laboratory Results Reviewed CBC Reviewed BMP Reviewed urine culture Reviewed blood cultures PG Care Time/CCT Total # of Minutes Spent Total Time Spent with Patient: Total time spent is greater than 50% in coordination of care (as documented) at patient's floor/unit and/or counseling patient: Coding Level of Care Code 78598 SUB INP/OBS CARE 2MIN Diagnoses UTI (urinary tract infection) N39.0; R31.9 Hematuria presence: with hematuria Urinary tract infection type: site unspecified SLE (systemic lupus erythematosus) M32.9 Secondary thrombocytopenia D69.59 Enterococcal bacteremia R78.81; B95.2 (1) UTI (urinary tract infection) Hematuria presence: with hematuria Urinary tract infection type: site unspecified Qualified Code(s): N39.0 - Urinary tract infection, site not specified; R31.9 - Hematuria, unspecified
--- NOTE | 2023-11-16 12:53 | Urology Progress Note ---
Date of Service November 16, 2023 Assessment & Plan (1) UTI (urinary tract infection): (2) Hydroureter on right: (3) Hydronephrosis: Plan: 62-year-old female with history of bilateral nephrolithiasis who is status post recent right ureteroscopy and stone treatment admitted for fever, vomiting and suspected acute UTI after stent removal on 11/11/23. Patient found to have Enterococcus bacteremia with likely Pyleo. Patient has been monitoring. Has not developed sudden or severe pain on the contralateral side. Has had some persistent episodes of fever. Found to have significant resistance including resistance to ramón quinolones. Patient is undergoing resuscitation/supportive care with IV hydration close monitoring IV antibiotics and pain control. Did discuss with patient ongoing treatment of UTI/pyelo and bacteremia. Will continue with supportive care. Continue with monitoring. Patient initially did not have a response to Cipro likely secondary to the resistance. Patient did state that ID and hospitalist are discussing different options for antibiotics. With the bacteremia will likely need to be on either an oral or IV agent with coverage. Patient does have history of penicillin allergy from childhood which was hives when she was around 11 years old. Is unsure if she would be able to tolerate other penicillins but this would be a potential option. Admission and Anticipated Discharge Date Admission Date: November 13, 2023 Subjective Patient admitted with fevers after stent removal and discomfort. Patient found to be bacteremic. Likely developed pyelo after stent removal possibly due to ureteral spasm with stent removal patient has long complicated history of recurrent UTIs and significant stone disease. Has been undergoing supportive care/therapy with oral medications, IV medications, IV fluids, and oral intake. Patient was placed on broad-spectrum antibiotics. Have been de-escalating. Found to have Enterococcus bacteremia/UTI/pyelo with some significant resistance including resistance to Cipro. Is improving without considerable increase in pain or major issues. Has not developed severe vomiting or other issues. Has been having episodes of intermittent fever. Has been tolerating oral medications. Is tolerating fluids. Has noticed some frequency and urgency. Has not had severe pain in the back and flank. Does have occasional burning and irritation. No severe episodes or major changes. Review of Systems Review of Systems: All systems reviewed & are unremarkable except as noted in HPI & below Physical Exam Physical Exam: General: Alert in no acute distress. HEENT: Normocephalic Atraumatic. Inspection normal. Cranial Nerves 2-12 Grossly intact. Normal inspection of face. Normal inspection of neck. Psychologic: Normal affect. Respiratory: Nonlabored. No use of accessory muscles. No tachypnea or dyspnea. Cardiovascular: No tachycardia Skin: Garceno and Dry. No rashes or visible lesions. Extremities/Lymphatics: No edema Abdomen: Soft Non-distended. No rebound or guarding. Results & Data Vital Signs (Past 12 Hours) Vital Signs Temp Pulse Resp BP Pulse Ox O2 Del Method 11/16/23 07:45 Room Air 11/16/23 07:09 36.6 C 64 18 124/71 98 Room Air PG Care Time/CCT Total # of Minutes Spent Total Time Spent with Patient: Total time spent is greater than 50% in coordination of care (as documented) at patient's floor/unit and/or counseling patient: Coding Level of Care Code 89222 SUB INP/OBS CARE 3/50MIN Diagnoses UTI (urinary tract infection) N39.0; R31.9 Hematuria presence: with hematuria Urinary tract infection type: site unspecified Hydroureter on right N13.4 Hydronephrosis N13.30 (1) UTI (urinary tract infection) Hematuria presence: with hematuria Urinary tract infection type: site unspecified Qualified Code(s): N39.0 - Urinary tract infection, site not s pecified; R31.9 - Hematuria, unspecified
[2023-11-17] MEDS: DAPTOmycin 400 MG in SYRINGE 0 ML IV SCH (06:21)
[2023-11-17 06:40] LABS: Hematocrit (blood only) 32.1 % (37.0-47.0); Hemoglobin 10.9 g/dl (12.0-16.0); Mean Corpuscular Volume 88.4 fL (80.0-100.0); Mean Platelet Volume 9.8 fL (9.4-12.4); Platelet Count 116 K/uL (130-400); RDW Coefficient of Variation 13.7 % (11.5-14.5); RDW Standard Deviation 44.3 fL (36.4-46.3); Red Blood Count 3.63 M/uL (4.20-5.40); White Blood Count 4.73 K/ul (4.8-10.8)
[2023-11-17 07:01] LABS: BUN Creatinine Ratio 32.6 (10-20); Creatinine Clr Calc Pharmacy 70.9 ml/min; Est GFR (African American) 84.5 ml/min; Est GFR (Non-African American) 72.9 ml/min; Potassium 3.7 mmol/L (3.5-5.1)
--- NOTE | 2023-11-17 09:45 | Hospitalist Progress Note ---
Date of Service November 17, 2023 Assessment & Plan (1) UTI (urinary tract infection): Plan: Presented with worsening flank pain, fever, chills, and vomiting at home. Had right ureteral stent removed on 11/11/2023. Has a history of medullary sponge kidney and ureteral stricture. - Sepsis secondary to urinary source on admission with tachycardia, febrile, and hypotension - Was trialed on ciprofloxacin outpatient, but was unable to keep it down due to vomiting - Complicated history of recurrent UTIs and significant stone disease - UA positive on arrival - Lactate and procalcitonin WNL - Most recent UCx on 10/26/2023 grew pansensitive Klebsiella - CT imaging from 11/11 showed right hydronephrosis, bilateral nonobstructing renal stones, no obstructing stones; gas at the bladder dome, likely secondary to recent procedure/stent removal - Urine culture revealed Enterococcus faecalis - Blood cultures reveal Enterococcus bacteremia - Repeat blood cultures negative x 48 hours - Continue Daptomycin 400 mg IV Q24H - Transthoracic echo showed no evidence of mass or vegetation. - ID consulted, appreciate recommendations > Recommend Dapto 650 mg IV Q24H x 10 days. > Follow further recommendations once ID note is completed. - Continue tamsulosin, potassium citrate for kidney stone prevention - IV antiemetics PRN, IV acetaminophen and Dilaudid PRN - Urology consult appreciated > No surgical intervention needed at this time. Likely developed bile after stent removal, possibly due to ureteral spasm with stent removal. > If temperature > 38.5 or above, consider reimaging or ultrasound. > Follow-up with urology outpatient. (2) SLE (systemic lupus erythematosus): Plan: Chronic steroid therapy with prednisone 2 mg daily - Stress dose steroids with Hydrocortisone 50 mg IV Q8H x 3 days (11/17/23) then taper > Hydrocortisone 25 mg Q8H x 1 day, then transition to prednisone taper of 20 mg x 1 day, 10 mg x 1 day, 5 mg x 1 day then return to home dose. (3) Secondary thrombocytopenia: Plan: Platelets low in the 70s to 90s - CT abdomen/pelvis from 1 month ago shows moderate splenomegaly at 17 cm which is similar to previous CT. Her CT abdomen/pelvis here also shows significant splenomegaly although it is not mentioned in the report - Unclear history of the cause of her splenomegaly-she does follow with hematology/oncology for history of colorectal cancer and also has a history of MALT lymphoma - Thrombocytopenia is listed as as a chronic diagnosis on outside records but otherwise no hematology records to review - B12 low-normal at 219. > Started B12 supplementation - continue at discharge. - Hold any anticoagulation or NSAIDs if platelets less than 50 Plan Consulted ID Consented for and ordered midline Discussed discharge planning with case management Chronic/stable conditions: History of rectal/colon cancer-s/p radiation and chemotherapy many years ago: Continue daily colostomy care Anxiety: Continue clonazepam TID Hypothyroidism: continue home levothyroxine, TSH WNL CODE STATUS: Full code VTE PPx: SCDs; low risk, will defer chemical DVT PPx in the setting of pancytopenia Admission and Anticipated Discharge Date Admission Date: November 13, 2023 Supervising Physician Co-Signing Physician Notes Attending Attestation - Chart reviewed, care plan d/w ANGELIQUE Reece. I agree w/ the brown components of her documentation. Appreciate ID consult & recs. Dennis Hearn MD Subjective Patient seen and evaluated at bedside. She is feeling well. She denies any urinary symptoms, flank pain, fevers or chills. I consented the patient for midline placement. We discussed how infectious disease is recommending a 10-day course of daptomycin, but we are awaiting further recommendations in regards to labs, follow-ups, etc. She is agreeable. Informed case management and they will coordinate additional needs. No additional complaints or concerns at this time. Physical Exam Physical Exam: General: No acute distress, nondiaphoretic, well-developed, well-nourished. Skin: The skin was without rashes, erythema, edema, or bruising. Cardiac: Regular rate and rhythm without murmurs gallops or rubs. Pulm: Clear to auscultation bilaterally without wheezes, rales or rhonchi. No respiratory distress. 98% on room air. Abdominal: Soft, nontender, nondistended. Bowel sounds present. Colostomy on LLQ without signs of infection. No CVA tenderness bilaterally. Neuro: A&O x3. No focal neurological deficits. Results & Data Results & Data Vital Signs (Past 12 Hours) Vital Signs Temp Pulse Resp BP Pulse Ox O2 Del Method 11/17/23 07:21 97.9 F 53 L 16 142/72 H 98 Room Air Laboratory Results Reviewed CBC Reviewed BMP Reviewed blood cultures PG Care Time/CCT Total # of Minutes Spent Total Time Spent with Patient: Total time spent is greater than 50% in coordination of care (as documented) at patient's floor/unit and/or counseling patient: Coding Level of Care Code 35653 SUB INP/OBS CARE 350MIN Diagnoses UTI (urinary tract infection) N39.0; R31.9 Hematuria presence: with hematuria Urinary tract infection type: site unspecified SLE (systemic lupus erythematosus) M32.9 Secondary thrombocytopenia D69.59 (1) UTI (urinary tract infection) Hematuria presence: with hematuria Urinary tract infection type: site unspecified Qualified Code(s): N39.0 - Urinary tract infection, site not specified; R31.9 - Hematuria, unspecified
--- NOTE | 2023-11-17 10:02 | Infectious Disease Consult ---
Date of Consultation November 17, 2023 Assessment & Plan (1) Enterococcal bacteremia: Plan #VRE Bacteremia 2/2 UTI after stent removal #Multiple allergies #Medullary sponge disease 62 yo F with h/o multiple antibiotic allergy, Raynauds disease on pred 2mg daily, medullary sponge kidney disease with ureteral stricturesm who underwent right ureteral stent removed on Friday 11/10 and began having sudden onset of flank pain, fevers and chills. ID consulted for bacteremia. In the ED, afebrile but hypotensive. WBC normal. UA with pyuria. Ucx VRE, Bcx Growing VRE. 11/11 CT showed right hydronephrosis, bilateral nonobstructing renal stones, no obstructing stones; gas at the bladder dome, likely secondary to recent procedure/stent removal. Patient initially started on Cipro but once VRE identified he was changed to daptomycin 400mg IV daily. Repeat Bcx no growth Recommend: -Increase Daptomycin to 10mg/kg IV daily for VRE Dosing -Check CPK baseline -Bcx are 48 hours negative today, can place midline -Plan for 10 day therapy from negative bcx 11/14-11/23 with weekly cbc with diff, cmp, cpk levels -D/W primary team and patient. Consultation Information Consultation was provided via telemedicine using two-way real-time interactive telecommunication between the patient and the telemedicine provider. For the duration of the visit, the provider was performing the assessment from a different facility than the patient. This includesuse of bluetooth stethoscope forauscultationperformed by the telepresenter that the telemedicine provider can hear if described in the physical exam. Flight Data Technician contact information: Please call [facility] . (Phone Number For Physician Use Only) After establishing a telemedicine visit, patient was: Patient was verified with two unique identifiers, Patient/authorized rep acknowledged consent and understanding and Gave permission to continue telehealth session Time Spent with Patient: Initial => 55 min History of Present Illness Reason for Consultation: VRE bacteremia Requesting Physician: Dr. Hearn Attending Physician: Dennis Hearn MD History of Present Illness 62 yo F with h/o multiple antibiotic allergy, Raynauds disease on pred 2mg daily, medullary sponge kidney disease with ureteral stricturesm who underwent right ureteral stent removed on [place] 9/10 and began having sudden onset of flank pain, fevers and chills. ID consulted for bacteremia. In the ED, afebrile but hypotensive. WBC normal. UA with pyuria. Ucx VRE, Bcx Growing VRE. 11/11 CT showed right hydronephrosis, bilateral nonobstructing renal stones, no obstructing stones; gas at the bladder dome, likely secondary to recent procedure/stent removal. Patient initially started on Cipro but once VRE identified he was changed to daptomycin 400mg IV daily. Repeat Bcx no growth. On my interview, she is feeling much better. No fevers or pain. Allergies Allergy/AdvReac Type Severity Reaction Status Date / Time moxifloxacin [From Avelox] Allergy Severe Rash Verified 10/29/23 13:06 Penicillins Allergy Severe Hives Verified 10/29/23 13:06 Sulfa (Sulfonamide Allergy Severe Brain/Head Verified 10/29/23 13:06 Antibiotics) pressure cefoxitin Allergy Unknown Unknown Verified 10/29/23 13:06 vancomycin Allergy Unknown Unknown Verified 10/29/23 13:06 acetaminophen [From Tylenol] AdvReac Unknown Fever Verified 10/29/23 13:09 Antihistamines - Alkylamine AdvReac "skin Verified 10/29/23 13:06 crawling" with antihistamines Home Medications Medication Instructions Recorded Confirmed Type calcium carbonate 600 mg-vitamin 1 tab PO DAILY 10/26/23 11/13/23 History D3 10 mcg (400 unit) tablet (Calcium 600 + D(3)) carboxymethylcellulose 1 drp ophthalmic (eye) BID 10/26/23 11/13/23 History sod-hypromell 0.25 %-0.3 % eye liquid gel drops carboxymethylcellulose sodium 1 % 1 drp ophthalmic (eye) BID 10/26/23 11/13/23 History eye gel in a dropperette (TheraTears) clonazepam 1 mg tablet 1 mg PO TID Anxiety/Insomnia 10/26/23 11/13/23 History docusate sodium 100 mg capsule 200 mg PO DAILY 10/26/23 11/13/23 History (Colace) levothyroxine 25 mcg tablet 25 mcg PO DAILYBB 10/26/23 11/13/23 History naloxone 4 mg/actuation nasal spray 4 mg intranasal UD 10/26/23 11/13/23 History omeprazole 20 mg capsule,delayed 20 mg PO QAM 10/26/23 11/13/23 History release oxycodone 5 mg tablet 5 mg PO Q4 PRN Severe Pain (Scale 10/26/23 11/13/23 History Score 7-10) potassium citrate 10 mEq (1,080 30 meq PO DAILY 10/26/23 11/13/23 History mg) tablet,extended release prednisone 1 mg tablet 2 mg PO DAILY 10/26/23 11/13/23 History tamsulosin 0.4 mg capsule 0.4 mg PO DAILY 10/26/23 11/13/23 History Patient History Medical History Raynaud's disease Medullary sponge kidney Panic disorder Hypothyroidism Anal cancer Social History Smoking Status: Former smoker Second Hand Exposure: Yes; Do You Dip or Chew Tobacco: No; Hx Alcohol Use: No Hx Substance Use: No Preferred Language: Togolese Communication Ability: Effective 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 Beliefs That Will Affect Care: None Current Living Situation: Spouse Feels Safe at Home: Yes Safety Concerns: Feels Safe At This Time Assistive Devices: None Physical Exam Physical Exam: NAD CTAB RRR S1 S2 SOft NT ND No CVA TTP Results & Data Vital Signs (Past 12 Hours) Vital Signs Temp Pulse Resp BP Pulse Ox O2 Del Method 11/17/23 07:21 36.6 C 53 L 16 142/72 H 98 Room Air Laboratory Results Laboratory Results - last 48 hr 11/16/23 11/17/23 11/17/23 05:52 06:12 10:47 WBC 5.56 4.73 L RBC 3.73 L 3.63 L Hgb 11.4 L 10.9 L Hct 33.4 L 32.1 L MCV 89.5 88.4 MCH 30.6 30.0 MCHC 34.1 34.0 RDW Std Deviation 45.4 44.3 RDW Coeff of Bertha 13.8 13.7 Plt Count 120 L 116 L MPV 10.2 9.8 Immature Gran % (Auto) 1.1 Neut % (Auto) 76.8 Lymph % (Auto) 17.8 Haskell % (Auto) 4.1 Eos % (Auto) 0.0 Baso % (Auto) 0.2 Neut # (Auto) 4.27 Lymph # (Auto) 0.99 L Haskell # (Auto) 0.23 Eos # (Auto) 0.00 Baso # (Auto) 0.01 Immature Gran # (Auto) 0.06 Sodium 140 140 Potassium 3.6 3.7 Chloride 111 H 110 H Carbon Dioxide 24 25 Anion Gap 5 5 BUN 27 H 28 H Creatinine 0.85 0.86 Est Cr Clr Drug Dosing 71.8 70.9 Est GFR ( Amer) 85.7 84.5 Est GFR (Non-Af Amer) 74.0 72.9 BUN/Creatinine Ratio 31.8 H 32.6 H Glucose 120 H 121 H Calcium 9.0 9.0 Total Creatine Kinase 16 L Medications Administered Current Inpatient Medications Clonazepam (Clonazepam 1 Mg Tab) 1 mg PO TID [facility] Stop: 12/13/23 21:49 Last Admin: 11/17/23 20:51 Dose: 1 mg Cyanocobalamin (Cyanocobalamin (B-12) 100 Mcg Tablet) 100 mcg PO QAM [facility] Stop: 12/16/23 08:59 Last Admin: 11/17/23 08:43 Dose: 100 mcg Docusate Sodium (Docusate Sodium 100 Mg Cap) 200 mg PO DAILY [facility] Stop: 12/14/23 08:59 Last Admin: 11/17/23 08:46 Dose: 200 mg Hydromorphone HCl (Hydromorphone Inj 0.5 Mg/0.5 Ml Syr) 0.25 mg IV Q2H PRN PRN Reason: Moderate Pain (4,5,6) on NRS Stop: 11/27/23 21:49 Hydromorphone HCl (Hydromorphone Inj 0.5 Mg/0.5 Ml Syr) 0.5 mg IV Q2H PRN PRN Reason: Severe Pain (7,8,9,10) on NRS Stop: 11/27/23 21:58 Daptomycin 650 mg/ Syringe 13 mls @ 6.5 mls/min IV Q24H [facility]; Protocol Stop: 12/02/23 06:59 Hydrocortisone Sodium (Succinate 25 mg/ Syringe) 0.5 mls @ 4 mls/min IV Q8H [facility] Stop: 11/18/23 19:59 Last Admin: 11/17/23 20:51 Dose: 4 mls/min Levothyroxine Sodium (Levothyroxine Sodium 25 Mcg Tablet) 25 mcg PO DAILYBB [facility] Stop: 12/14/23 06:29 Last Admin: 11/17/23 05:39 Dose: 25 mcg Melatonin (Melatonin 3 Mg Tab) 3 mg PO HS PRN PRN Reason: Insomnia Stop: 12/13/23 21:49 Naloxone HCl (Naloxone Hcl 0.4 Mg/1 Ml Vial/Carp) 0.4 mg IV UD PRN PRN Reason: OVERDOSE Stop: 12/13/23 22:10 Ondansetron HCl (Ondansetron Inj 2 Mg/Ml 2 Ml Vial) 4 mg IV Q6H PRN PRN Reason: Nausea Stop: 12/13/23 21:49 Last Admin: 11/14/23 16:55 Dose: 4 mg Pantoprazole Sodium (Pantoprazole 40 Mg Tab) 40 mg PO QAM [facility] Stop: 12/14/23 08:59 Last Admin: 11/17/23 08:43 Dose: 40 mg Potassium Citrate (Potassium Citrate 10 Meq Tab) 30 meq PO DAILY [facility] Stop: 12/14/23 08:59 Last Admin: 11/17/23 08:44 Dose: 30 meq Prednisone (Prednisone 1 Mg Tab) 2 mg PO DAILY [facility] Stop: 12/14/23 08:59 Last Admin: 11/17/23 08:44 Dose: 2 mg Tamsulosin HCl (Tamsulosin Hcl 0.4 Mg Cap) 0.4 mg PO DAILY [facility] Stop: 12/14/23 08:59 Last Admin: 11/17/23 08:44 Dose: 0.4 mg
[2023-11-17] MEDS: DAPTOmycin 200 MG in SYRINGE 0 ML IV ONE (11:49)
--- NOTE | 2023-11-17 12:29 | Urology Progress Note ---
Date of Service November 17, 2023 Assessment & Plan (1) UTI (urinary tract infection): (2) Hydroureter on right: (3) Hydronephrosis: Plan: 62-year-old female with history of bilateral nephrolithiasis who is status post recent right ureteroscopy and stone treatment admitted for fever, vomiting and suspected acute UTI after stent removal on 11/11/23. Subjectively feeling better today. Afebrile and hemodynamically stable at present. Lab work reviewed -WBC 4.73, hemoglobin 10.9, creatinine 0.86. Urine and blood cultures growing Enterococcus. No acute intervention warranted. Patient found to have Enterococcus bacteremia with likely pyelonephritis. She has been improving with antibiotic therapy. Continue antibiotics and tailor per culture sensitivities. Infectious disease consulted. Continue supportive care. Will plan for outpatient follow-up with urology as scheduled. will sign-off. Please call with any further questions, concerns, or changes in patient's status. Admission and Anticipated Discharge Date Admission Date: November 13, 2023 Subjective Pt seen at bedside this AM Awake, resting in bed on arrival No acute distress Overall she is feeling much better Reports occasional mild right sided pain Denies f/c/n/v Voiding without issue Review of Systems Constitutional: as per Subjective / HPI Gastrointestinal: as per Subjective / HPI Genitourinary: as per Subjective / HPI Physical Exam Constitutional: no acute distress Respiratory: no respiratory distress and no labored breathing Neurologic: moves all extremities and awake Psychiatric: A+Ox3, euthymic affect Results & Data Vital Signs (Past 12 Hours) Vital Signs Temp Pulse Resp BP Pulse Ox O2 Del Method 11/17/23 07:21 36.6 C 53 L 16 142/72 H 98 Room Air PG Care Time/CCT Total # of Minutes Spent Total Time Spent with Patient: Total time spent is greater than 50% in coordination of care (as documented) at patient's floor/unit and/or counseling patient: Coding Level of Care Code 11675 SUB INP/OBS CARE 2/35MIN Diagnoses UTI (urinary tract infection) N39.0; R31.9 Hematuria presence: with hematuria Urinary tract infection type: site unspecified Hydroureter on right N13.4 Hydronephrosis N13.30 (1) UTI (urinary tract infection) Hematuria presence: with hematuria Urinary tract infection type: site unspecified Qualified Code(s): N39.0 - Urinary tract infection, site not specified; R31.9 - Hematuria, unspecified
[2023-11-17] MEDS: HYDROCORTISONE SOD 25 MG in SYRINGE 0 ML IV SCH (20:51)
[2023-11-18] MEDS: DAPTOmycin 650 MG in SYRINGE 0 ML IV SCH (06:24)
[2023-11-18 07:22] VITALS: BP 139/65; PULSE 53; RESP 16; O2SAT 98
[2023-11-18 07:40] LABS: Hematocrit (blood only) 33.7 % (37.0-47.0); Hemoglobin 11.3 g/dl (12.0-16.0); Mean Corpuscular Hgb Conc 33.5 g/dL (32.0-36.0); Mean Corpuscular Volume 89.4 fL (80.0-100.0); Mean Platelet Volume 9.8 fL (9.4-12.4); Platelet Count 135 K/uL (130-400); RDW Coefficient of Variation 13.7 % (11.5-14.5); Red Blood Count 3.77 M/uL (4.20-5.40); White Blood Count 5.19 K/ul (4.8-10.8)
[2023-11-18 08:08] LABS: BUN Creatinine Ratio 42.9 (10-20); Creatinine Clr Calc Pharmacy 87.1 ml/min; Est GFR (African American) 108.4 ml/min; Est GFR (Non-African American) 93.5 ml/min; Potassium 3.8 mmol/L (3.5-5.1)
--- NOTE | 2023-11-18 08:43 | Hospitalist Progress Note ---
Date of Service November 18, 2023 Assessment & Plan (1) UTI (urinary tract infection): Plan: Presented with worsening flank pain, fever, chills, and vomiting at home. Had right ureteral stent removed on 11/11/2023. Has a history of medullary sponge kidney and ureteral stricture. - Sepsis secondary to urinary source on admission with tachycardia, febrile, and hypotension - Was trialed on ciprofloxacin outpatient, but was unable to keep it down due to vomiting - Complicated history of recurrent UTIs and significant stone disease - UA positive on arrival - Lactate and procalcitonin WNL - Most recent UCx on 10/26/2023 grew pansensitive Klebsiella - CT imaging from 11/11 showed right hydronephrosis, bilateral nonobstructing renal stones, no obstructing stones; gas at the bladder dome, likely secondary to recent procedure/stent removal - Urine culture revealed Enterococcus faecalis - Blood cultures reveal Enterococcus bacteremia - Repeat blood cultures negative x 48 hours - Continue Daptomycin 400 mg IV Q24H - Transthoracic echo showed no evidence of mass or vegetation. - ID consulted, appreciate recommendations > Recommend Dapto 650 mg IV Q24H x 10 days. > Follow further recommendations once ID note is completed. - Continue tamsulosin, potassium citrate for kidney stone prevention - IV antiemetics PRN, IV acetaminophen and Dilaudid PRN - Urology consult appreciated > No surgical intervention needed at this time. Likely developed bile after stent removal, possibly due to ureteral spasm with stent removal. > If temperature > 38.5 or above, consider reimaging or ultrasound. > Follow-up with urology outpatient. (2) SLE (systemic lupus erythematosus): Plan: Chronic steroid therapy with prednisone 2 mg daily - Stress dose steroids with Hydrocortisone 50 mg IV Q8H x 3 days (11/17/23) then taper > Hydrocortisone 25 mg Q8H x 1 day, then transition to prednisone taper of 20 mg x 1 day, 10 mg x 1 day, 5 mg x 1 day then return to home dose. (3) Secondary thrombocytopenia: Plan: Platelets low in the 70s to 90s - CT abdomen/pelvis from 1 month ago shows moderate splenomegaly at 17 cm which is similar to previous CT. Her CT abdomen/pelvis here also shows significant splenomegaly although it is not mentioned in the report - Unclear history of the cause of her splenomegaly-she does follow with hematology/oncology for history of colorectal cancer and also has a history of MALT lymphoma - Thrombocytopenia is listed as as a chronic diagnosis on outside records but otherwise no hematology records to review - B12 low-normal at 219. > Started B12 supplementation - continue at discharge. - Hold any anticoagulation or NSAIDs if platelets less than 50 Plan Consulted ID Consented for and ordered midline Discussed discharge planning with case management Chronic/stable conditions: History of rectal/colon cancer-s/p radiation and chemotherapy many years ago: Continue daily colostomy care Anxiety: Continue clonazepam TID Hypothyroidism: continue home levothyroxine, TSH WNL CODE STATUS: Full code VTE PPx: SCDs; low risk, will defer chemical DVT PPx in the setting of pancytopenia Admission and Anticipated Discharge Date Admission Date: November 13, 2023 Results & Data Results & Data Vital Signs (Past 12 Hours) Vital Signs Temp Pulse Resp BP Pulse Ox O2 Del Method 11/18/23 07:19 36.6 C 53 L 16 139/65 98 Room Air PG Care Time/CCT Total # of Minutes Spent Total Time Spent with Patient: Total time spent is greater than 50% in coordination of care (as documented) at patient's floor/unit and/or counseling patient: Coding Diagnoses UTI (urinary tract infection) N39.0; R31.9 Hematuria presence: with hematuria Urinary tract infection type: site unspecified SLE (systemic lupus erythematosus) M32.9 Secondary thrombocytopenia D69.59 (1) UTI (urinary tract infection) Hematuria presence: with hematuria Urinary tract infection type: site unspecified Qualified Code(s): N39.0 - Urinary tract infection, site not specified; R31.9 - Hematuria, unspecified
--- NOTE | 2023-11-18 09:17 | Discharge Summary ---
Discharge Summary Date of Service November 18, 2023 Principal Dx & Hospital Course #1 = Principal Diagnosis (1) UTI (urinary tract infection): Presented with worsening flank pain, fever, chills, and vomiting at home. Had right ureteral stent removed on 11/11/2023. Has a history of medullary sponge kidney and ureteral stricture. Sepsis secondary to urinary source on admission with tachycardia, febrile, and hypotension on admission and was trialed on Ciprofloxacin as outpatient but unable to keep down due to vomiting. Complicated history of recurrent UTIs and significant stone disease UA positive on admission with normal lactic acid and procalcitonin Urine cx 10/25 with pansensitive klebsiella CTAP 11/11 with right hydronephrosis, bilateral nonobstructing renal stones, no obstructing stones; gas at the bladder dome, likely secondary to recent p rocedure/stent removal Urology consulted, no planned for intervention and likely developed bile after stent removal, possibly due to ureteral spasm with stent removal and recs for outpatient follow up Blood cultures with ENTEROCOCCUS faecalis, same on urine cultures Was treated with Daptomycin IV, ECHO without vegetation or mass. ID consultation placed and Daptomycin increased to 10mg/kg/dose, 650mg IV daily and consent obtained for midline for ongoing abx (placed RUE) and CM arranged for ongoing antibiotics at discharge to complete 10 day course, end of treatment 11/23. Weekly labs with CBC w/ diff, CMP, CPK while on anitbiotics Of note, does have ostomy and some increased output day prior but soft/semi- formed stool on repeat exam and discussed to monitor/alert PCP of any increased diarrhea on abx to check for cdfiff Given hx lupus/chronic steroids, did receive stress dose steroids inpatient and taper back to usual dose at ms as outlined below Outpatient follow up with PCP and Urology. (2) SLE (systemic lupus erythematosus): Chronic steroid therapy with prednisone 2 mg daily Stress dose steroids with Hydrocortisone 50 mg IV Q8H x 3 days then decreased to 25mg Q8h and plan for 20mg x1 day, 10mg x 1 day, 5mg x 1 day then home dosing (3) Secondary thrombocytopenia: Platelets low in the 70s to 90s - CT abdomen/pelvis from 1 month ago shows moderate splenomegaly at 17 cm which is similar to previous CT. Her CT abdomen/pelvis here also shows significant splenomegaly although it is not mentioned in the report - Unclear history of the cause of her splenomegaly-she does follow with hematology/oncology for history of colorectal cancer and also has a history of MALT lymphoma - Thrombocytopenia is listed as as a chronic diagnosis on outside records but otherwise no hematology records to review - B12 low-normal at 219. > Started B12 supplementation - continued at discharge. - Hold any anticoagulation or NSAIDs if platelets less than 50 PCP/outpt follow up, platelets improved to 135 prior to dc Plan Chronic/stable conditions: History of rectal/colon cancer-s/p radiation and chemotherapy many years ago: Continue daily colostomy care Anxiety: Continue clonazepam TID Hypothyroidism: continue home levothyroxine, TSH WNL CODE STATUS: Full code VTE PPx: SCDs; low risk, deferred chemical DVT PPx in the setting of pancytopenia (plt normalized on repeat) Notes For Next Care Provider Monitor weekly labs on Daptomycin IV Medication Changes From Visit Daptomycin IV x 10 days B12 1000mcg PO daily Prednisone taper Admission HPI Per Admitting Provider Hayley is a 62-year-old female with PMH of rectal/colon cancer, radiation cystitis, colostomy status, SLE, nephrolithiasis, hydronephrosis, and pancytopenia. She presented on 11/12 for fever, chills, and right flank pain at home after she had a right stent removed by urology on Friday. Patient reports she was feeling good for 4 to 5 hours after the stent was removed, then developed bilateral flank pain. She took oxycodone and Tylenol at home, which did not help and she return to the ED. She rated the pain at that time is a 20/10, and characterizes it as a constant ache/throb. Some radiation down towards the groin and lower stomach. There were no alleviating symptoms; not positional. Dilaudid in the ED did not alleviate her pain. However she went home and was started on ciprofloxacin, but started running fevers at home ranging from 98 F to 102 F. Patient reports she took her regular morning medications today, but when she went to take her Cipro around lunchtime she felt nauseous and vomited. She was also unable to keep down her evening dose of ciprofloxacin. At present she rates her right flank pain as 5/10 without radiation. Patient denies smoking, tobacco use, or recent alcohol use. She has been on ciprofloxacin for the past 2 days, but has vomited after each dose. Patient's vitals are stable at time of admission. ED course: Ciprofloxacin 40 mg IV Morphine 4 mg IV Dilaudid 0.5 mg IV Toradol 10 mg IV Zofran 4 mg IV NSS 1000 mL IV ROS: Patient endorses fever, right flank pain, SALDIVAR, nausea, vomiting, abdominal pain around her colostomy, and blood in urine. Patient denies dizziness, lightheadedness, chest pain, SOB, cough, pleuritic CP, dysuria, burning with urination, lower back pain, changes in bowel habits, saddle anesthesia, or numbness/tingling in the flanks or legs. Admission Exam Per Admitting Provider General: no acute distress; pleasant affect; non-toxic appearing; cooperative; SpO2 96% RA HEENT: normocephalic, atraumatic; no scleral icterus; PERRLA; vision and hearing grossly intact Neck: supple; no lymphadenopathy; trachea midline Skin: warm, dry without signs of tenting; no cyanosis; no rashes, bruising, lesions, or erythema noted CV: chest wall NTP; RRR; S1/S2 normal; no murmurs/rubs/gallops; pulses intact and symmetric at radial, DP, and PT Lungs: no acute respiratory distress; symmetrical chest wall expansion; clear breath sounds across all lung sanchez w/o adventitious sounds; no wheezing ABD: Soft, NTP in all 4 quadrants; lower right flank is TTP; left flank NTP; colostomy on the LLQ without signs of erythema or infection; BS present; no rebound/guarding; no distention Back: Positive right-sided CVA tenderness MSK: no tics or fasciculations; no edema noted in the LEs b/l, nonerythematous Neuro: A&Ox3; normal mood and affect; fluent speech; no focal deficits; sensation grossly intact and symmetric in the LEs b/l Discharge Exam General: 62 yo female sitting up in bed, appears in NAD HEENT :atraumatic, normocephalic, mmm, trachea midline Resp: even/unlabored, no w/c/r, on room air CV: RRR< no significant m/r/g, no pitting edema/calf tenderness GI: +BS, soft, +ostomy LLQ (semi-soft brown stool present, +gas) : no norman MSK/Neuro: nonfocal, answering questions appropriately, no slurred speech/facial droop Psych: AOx4, cooperative with exam Discharge Plan Discharge Items Patient Disposition: Home - Home Health Services Reason For Visit: UTI Discharge Diagnosis: Bacteremia, Urinary Source Goals: You have been hospitalized for an acute medical problem. During your stay at [facility], we have made an effort to correct the problem that brought you to the hospital while keeping you as comfortable as possible. Medications were used to bring your condition under control and your discharge instructions will include directions for any medications you should take after leaving the hospital. Please make sure you see your Primary Care Provider as part of your follow up plan. Activity: Resume your previous activity Non-emergency contact: Primary Care Provider and Urologist Call non-emergency contact if: you have any medication questions, your symptoms worsen, your pain is concerning for you, you have a fever and your temperature is above 101.5 Follow-up/Referrals: Pablo Proctor MD [Physician] - 12/23/23 10:30 am Caitie Aden DO [Primary Care Provider] - 11/24/23 10:00 am Diet: Heart Healthy Addtl Attending Provider Instructions: You have been hospitalized for fever/chills, vomiting at home and found to have positive blood cultures and likely due to urinary source with recent stenting. Infectious disease and Urology are consulted and you have been given IV antibiotics and IV site placed for ongoing antibiotics at discharge. At discharge, you are to continue Daptomycin IV for a total of 10 days. End of treatment will be 11/23. Repeat labs weekly on such with CBC with diff, CMP, CPK levels. Will need Urology follow up as well as primary care. For your lupus and steroids, we have given stress dose steroids in the form of IV. You should take 5mg tonight with this morning's IV dose then take 10mg tomorrow and then 5mg on 11/19 prior to resuming your usual 2mg dosing on 11/20. Please follow up with primary care in the next week to monitor your progress after discharge. Please return to the ER with any repeat fevers/chills, chest pain, shortness of breath, nausea/vomiting, or for any other symptoms concerning for you. It has been a pleasure being a part of the medical team providing for you while you have been in the hospital. Take care! Pending Studies at Discharge: Yes Studies:: Repeat blood cultures -- no growth to date Stand-Alone Forms: My [facility] [employer], Smoking Cessation Medications and DC Order Prescriptions: New cyanocobalamin (vitamin B-12) 1,000 mcg capsule 1,000 mcg PO DAILY Qty: 30 0RF daptomycin 500 mg recon soln 651 mg IV DAILY Rx Instructions: administer over 30 mins prednisone 20 mg tablet See Rx Instructions .ROUTE .COMPLEX 3 Days Qty: 1 0RF Rx Instructions: 20mg by mouth for 1 day, then 10mg by mouth for 1 day, then 5mg for 1 day, then return to usual dosing phenazopyridine [Pyridium] 100 mg tablet 100 mg PO Q8H PRN (Reason: bladder spasms) Qty: 14 0RF Continued clonazepam 1 mg tablet 1 mg PO TID levothyroxine 25 mcg tablet 25 mcg PO DAILYBB tamsulosin 0.4 mg capsule 0.4 mg PO DAILY prednisone 1 mg tablet 2 mg PO DAILY potassium citrate 10 mEq (1,080 mg) tablet extended release 30 meq PO DAILY docusate sodium [Colace] 100 mg Capsule 200 mg PO DAILY omeprazole 20 mg capsule,delayed release(DR/EC) 20 mg PO QAM oxycodone 5 mg tablet 5 mg PO Q4 PRN (Reason: Severe Pain (Scale Score 7-10)) Rx Instructions: Q 4-6 hours calcium carbonate-vitamin D3 [Calcium 600 + D(3)] 600 mg-10 mcg (400 unit) Tablet 1 tab PO DAILY naloxone 4 mg/actuation spray,non-aerosol 4 mg INTRANASAL UD Rx Instructions: [place] 1 spray into one nostril as directed for overdose, respiratory supression/slow infrequent breathing. Repeat in 3 minutes in the other nostril if no response. Call 911. carboxymethylcell-hypromellose 0.25-0.3 % Drops, Liquid Gel 1 drp OPHTHALMIC (EYE) BID carboxymethylcellulose sodium [TheraTears] 1 % Dropperette,Gel 1 drp OPHTHALMIC (EYE) BID Discharge Orders: Discharge Order (Routine); Ordered 11/18/23 Ordered By: Phyllis Guerrero/Other Patient Handouts: Understanding a Midline Catheter, Midline Catheter Dc Flushing, Urinary Tract Infections in Women, UTIs Admission Data Admit Date/Time: 11/13/23 20:39 Attending Provider: Lydia Wilkins Admit Provider: Pravin Rojas Primary Care Provider: Caitie Aden Other Providers: Pravin Rojas; Pablo Proctor [facility]; Christine Alegria Other Interventions: Discharge Summary Assessment (RN) Last Done: 11/18/23 10:06 Hospital Stay Data Consultations 11/13/23 20:06 ED Decision to Admit Stat 11/13/23 20:07 Consult Urology Routine 11/17/23 09:37 Consult Infectious Diseases Routine Diagnostic Imagining Performed Chest X-Ray 11/13/23 18:28 XR chest 1V not portable CLINICAL HISTORY: Sepsis TECHNIQUE: Single frontal radiograph of the chest was obtained. Comparison: None available at the time of this dictation. FINDINGS: Metallic clips project over the left lung. The cardiomediastinal silhouette is normal. Prominence and cephalization of the vasculature is seen. No evidence of pleural effusion or pneumothorax. IMPRESSION: Mild pulmonary edema. ACT 112: Negative or not required by law. Electronically signed by: Rusyt Parsons M.D. 11/14/2023 8:04 AM Discharge Instructions Given to Patient (Per Discharging Provider) You have been hospitalized for fever/chills, vomiting at home and found to have positive blood cultures and likely due to urinary source with recent stenting. Infectious disease and Urology are consulted and you have been given IV antibiotics and IV site placed for ongoing antibiotics at discharge. At discharge, you are to continue Daptomycin IV for a total of 10 days. End of treatment will be 11/23. Repeat labs weekly on such with CBC with diff, CMP, CPK levels. Will need Urology follow up as well as primary care. For your lupus and steroids, we have given stress dose steroids in the form of IV. You should take 5mg tonight with this morning's IV dose then take 10mg tomorrow and then 5mg on 11/19 prior to resuming your usual 2mg dosing on 11/20. Please follow up with primary care in the next week to monitor your progress after discharge. Please return to the ER with any repeat fevers/chills, chest pain, shortness of breath, nausea/vomiting, or for any other symptoms concerning for you. It has been a pleasure being a part of the medical team providing for you while you have been in the hospital. Take care! Total Time Total Time Spent Total Time Spent (In Minutes): 45 Coding Level of Care Code 95575 INP/OBS DISCH >30 MIN Diagnoses UTI (urinary tract infection) N39.0; R31.9 Hematuria presence: with hematuria Urinary tract infection type: site unspecified SLE (systemic lupus erythematosus) M32.9 Secondary thrombocytopenia D69.59
== END 2023-11-18 11:34 | disposition home health service (06) | DRG 872 ==
LOC: ED 17:54 → 3N 20:39 → SUATTDRO 20:39 → 3N 21:36

== ENCOUNTER 2023-12-03 09:26 | Inpatient (IN) ==
--- NOTE | 2023-12-03 10:15 | Emergency Department Note ---
Impression & Plan Sepsis, Nephrolithiasis, UTI (urinary tract infection), Renal colic on right side, Hydronephrosis ED Provider Note NAME: MARII BERNABE AGE: 63 SEX: F : 1960 ARRIVES VIA: Walk-In INFORMANT: Patient ED PROVIDER(S): Jama Reaves DO CHIEF COMPLAINT: Right flank pain HPI: Patient is a 63-year-old female with a past medical history of kidney stones, ureteral stricture, stent and enterococcal bacteremia who presents to the ER for right flank pain which started again this morning around 2 AM. She admits to nausea but no vomiting. She has been feeling hot and cold but no recorded fevers. Denies any headache or change in vision. No chest pain or shortness of breath. No dysuria, urgency, or frequency. Currently no other exacerbating or remitting factors. ADDITIONAL HISTORY OBTAINED: Per HPI Chronic Medical/Social Conditions Affecting Care: Per HPI PAST MEDICAL HISTORY:See Below PAST SURGICAL HISTORY:See Below FAMILY HISTORY:See Below SOCIAL HISTORY:See Below HOME MEDICATIONS:See Below ALLERGIES:See Below VITALS:See Below PHYSICAL EXAMINATION: GENERAL: Sitting up in bed, alert, well appearing, well nourished, no distress, non-toxic EYE EXAM: normal conjunctiva. OROPHARYNX: mucous membranes are moist LUNGS: Clear to auscultation. Normal chest wall mechanics HEART: no murmurs, S1 normal and S2 normal ABDOMEN: abdomen soft, non-tender, normo-active bowel sounds, no masses, no rebound or guarding. BACK: Back is symmetrical on inspection and there is no deformity, no midline tenderness, no CVA tenderness. SKIN: no rashes and no bruising UPPER EXTREMITIES: upper extremities are grossly normal. LOWER EXTREMITIES: No pitting edema. NEURO EXAM: Normal sensorium, cranial nerves II-XII grossly intact, normal speech, no gross weakness of arms, no gross weakness of legs. MEDICAL DECISION MAKING: Patient is a 63-year-old female who presents to the ER with a recent history of enterococcal bacteremia flank pain. IV was established medicos obtained. Slightly tachycardic with heart rates in the 90s to low 100s. Labs show a leukopenia at 3.5 and a mild anemia. BMP along with LFTs bilirubin and lipase was unremarkable. Lactate was normal. UA is consistent with UTI. CT abdomen pelvis confirms hydronephrosis with a distal stone. I contacted urology and spoke with Phyllis and she evaluated the patient at bedside. Discussed with the hospitalist. Patient was given IV Rocephin and daptomycin. Patient was taken to the OR for stent placement. Consults/Care Managements Discussions: Per [facility] Triage Nursing notes reviewed. Limited review of prior medical records performed Vital Signs: reviewed and remarkable for no significant abnormalities Differential diagnosis: Differential diagnoses includes but is not limited to gastritis, peptic ulcer disease, GERD, gallbladder disease, pancreatitis, small bowel obstruction, appendicitis, diverticulitis, hernia, urinary tract infection, torsion, perforation, trauma, infectious. ER treatment provided: See below Diagnostics interpreted by me include EKG and cardiac monitoring as listed below: -Cardiac Monitoring: An order was placed for continuous cardiac monitoring. The monitor shows a rate of 90 with sinus rhythm. -ECG: none -Laboratory studies:Interpreted by me as stated above in MDM and shown below. Imaging studies: Xrays: As interpreted by me: None CTs show: CT abdomen pelvis per my preliminary interpretation shows hydronephrosis with a right distal stone Procedures: None Critical Care: None Past Med/Surg History Problem List (Updated 12/03/23 @ 15:38 by Jama Reaves DO) Sepsis (Acute) Sepsis Ureterolithiasis Enterococcal bacteremia Anxiety Colostomy status SLE (systemic lupus erythematosus) Secondary thrombocytopenia Pancytopenia Hydronephrosis (Acute) Ureteral calculi History of creation of ostomy (Acute) Renal colic on right side (Acute) UTI (urinary tract infection) (Acute) Hydroureter on right (Acute) Nephrolithiasis (Acute) Medical History Raynaud's disease Medullary sponge kidney Panic disorder Hypothyroidism Anal cancer Social History Smoking Status: Never smoker Second Hand Exposure: Yes; Do You Dip or Chew Tobacco: No; Hx Alcohol Use: No Hx Substance Use: No Preferred Language: Setswana Communication Ability: Effective Director Food Safety Required: No Beliefs That Will Affect Care: None Current Living Situation: Spouse Other Information That Helps Us Care for You: No Feels Safe at Home: Yes Safety Concerns: Feels Safe At This Time Assistive Devices: Denture - Upper, Denture - Lower and Glasses Allergies Allergies Allergy/AdvReac Type Severity Reaction Status Date / Time moxifloxacin [From Avelox] Allergy Severe Rash Verified 12/03/23 13:07 Penicillins Allergy Severe Hives Verified 12/03/23 13:07 Sulfa (Sulfonamide Allergy Severe Brain/Head Verified 12/03/23 13:07 Antibiotics) pressure cefoxitin Allergy Unknown Unknown Verified 12/03/23 13:07 vancomycin Allergy Unknown Unknown Verified 12/03/23 13:07 acetaminophen [From Tylenol] AdvReac Unknown Fever Verified 12/03/23 13:07 Antihistamines - Alkylamine AdvReac "skin Verified 12/03/23 13:07 crawling" with antihistamines Home Meds Home Medications Medication Instructions Recorded Confirmed calcium carbonate 600 mg-vitamin 1 tab PO DAILY 10/26/23 12/03/23 D3 10 mcg (400 unit) tablet (Calcium 600 + D(3)) carboxymethylcellulose 1 drp ophthalmic (eye) BID 10/26/23 12/03/23 sod-hypromell 0.25 %-0.3 % eye liquid gel drops carboxymethylcellulose sodium 1 % 1 drp ophthalmic (eye) BID 10/26/23 12/03/23 eye gel in a dropperette (TheraTears) clonazepam 1 mg tablet 1 mg PO TID Anxiety/Insomnia 10/26/23 12/03/23 docusate sodium 100 mg capsule 200 mg PO DAILY 10/26/23 12/03/23 (Colace) levothyroxine 25 mcg tablet 25 mcg PO DAILYBB 10/26/23 12/03/23 naloxone 4 mg/actuation nasal spray 4 mg intranasal UD 10/26/23 12/03/23 omeprazole 20 mg capsule,delayed 20 mg PO QAM 10/26/23 12/03/23 release oxycodone 5 mg tablet 5 mg PO Q4 PRN Severe Pain (Scale 10/26/23 12/03/23 Score 7-10) potassium citrate 10 mEq (1,080 30 meq PO DAILY 10/26/23 12/03/23 mg) tablet,extended release prednisone 1 mg tablet 2 mg PO DAILY 10/26/23 12/03/23 tamsulosin 0.4 mg capsule 0.4 mg PO DAILY 10/26/23 12/03/23 Previous Rx's Medication Instructions Recorded cyanocobalamin (vitamin B-12) 1,000 mcg PO DAILY #30 caps 11/18/23 1,000 mcg capsule phenazopyridine 100 mg tablet 100 mg PO Q8H PRN bladder spasms 11/18/23 (Pyridium) #14 tabs Results & Data (ED) Vital Signs Vital Signs - 24 hr 12/03/23 09:38 12/03/23 10:21 12/03/23 10:21 Temperature 36.4 C L 36.8 C Temperature Source Temporal Artery Scan Oral Pulse Rate 89 91 H Pulse Rate [Apical] 91 H Pulse Rate from SpO2 Sensor Pulse Rhythm Regular Pulse Rhythm [Apical] Regular Pulse Strength [Apical] Normal Respiratory Rate 14 20 20 Respiratory Effort / Characteristics Non-Labored Spontaneous Respiratory Depth Normal Respiratory Pattern Regular Blood Pressure 104/67 Blood Pressure [Right Arm] 126/74 Blood Pressure Mean 79 Blood Pressure Mean [Right Arm] 91 Blood Pressure Position [Right Arm] Semi-fowlers Pulse Oximetry 97 98 98 Oxygen Delivery Method Room Air Room Air Room Air Sepsis New/Unexplained Change in Mental Status No Sepsis Action Taken by Nursing No Action Required 12/03/23 10:57 12/03/23 11:00 12/03/23 11:30 Temperature Temperature Source Pulse Rate 86 Pulse Rate [Apical] Pulse Rate from SpO2 Sensor 86 Pulse Rhythm Pulse Rhythm [Apical] Pulse Strength [Apical] Respiratory Rate 14 Respiratory Effort / Characteristics Respiratory Depth Respiratory Pattern Blood Pressure 114/88 109/69 Blood Pressure [Right Arm] Blood Pressure Mean 90 79 Blood Pressure Mean [Right Arm] Blood Pressure Position [Right Arm] Pulse Oximetry 97 Oxygen Delivery Method Sepsis New/Unexplained Change in Mental Status Sepsis Action Taken by Nursing 12/03/23 11:30 12/03/23 12:00 12/03/23 12:03 Temperature Temperature Source Pulse Rate 88 87 Pulse Rate [Apical] Pulse Rate from SpO2 Sensor 81 87 Pulse Rhythm Pulse Rhythm [Apical] Pulse Strength [Apical] Respiratory Rate 12 17 Respiratory Effort / Characteristics Respiratory Depth Respiratory Pattern Blood Pressure 114/70 Blood Pressure [Right Arm] Blood Pressure Mean 81 Blood Pressure Mean [Right Arm] Blood Pressure Position [Right Arm] Pulse Oximetry 96 97 Oxygen Delivery Method Sepsis New/Unexplained Change in Mental Status Sepsis Action Taken by Nursing 12/03/23 12:18 12/03/23 12:53 Temperature 37 C Temperature Source Oral Pulse Rate 92 H Pulse Rate [Apical] 95 H Pulse Rate from SpO2 Sensor Pulse Rhythm Pulse Rhythm [Apical] Regular Pulse Strength [Apical] Respiratory Rate 20 Respiratory Effort / Characteristics Non-Labored Spontaneous Normal for Patient Respiratory Depth Normal Respiratory Pattern Regular Blood Pressure Blood Pressure [Right Arm] 136/61 Blood Pressure Mean Blood Pressure Mean [Right Arm] 86 Blood Pressure Position [Right Arm] Semi-fowlers Pulse Oximetry 97 Oxygen Delivery Method Room Air Sepsis New/Unexplained Change in Mental Status Sepsis Action Taken by Nursing Laboratory Data 12/03/23 10:15 12/03/23 10:15 Lab Results 12/03/23 12/03/23 Range/Units 10:15 12:15 WBC 3.59 L (4.8-10.8) K/ul RBC 3.95 L (4.20-5.40) M/uL Hgb 11.7 L (12.0-16.0) g/dl Hct 36.0 L (37.0-47.0) % MCV 91.1 (80.0-100.0) fL MCH 29.6 (25.0-34.0) pg MCHC 32.5 (32.0-36.0) g/dL RDW Std Deviation 48.3 H (36.4-46.3) fL RDW Coeff of Bertha 14.4 (11.5-14.5) % Plt Count 102 L (130-400) K/uL MPV 9.9 (9.4-12.4) fL Immature Gran % (Auto) 0.3 % Neut % (Auto) 75.4 % Lymph % (Auto) 14.5 % [place] % (Auto) 9.5 % Eos % (Auto) 0.0 % Baso % (Auto) 0.3 % Neut # (Auto) 2.71 (1.40-6.50) K/uL Lymph # (Auto) 0.52 L (1.20-3.40) K/uL [place] # (Auto) 0.34 (0.11-0.59) K/uL Eos # (Auto) 0.00 (0.00-0.50) K/uL Baso # (Auto) 0.01 (0.00-0.20) K/uL Immature Gran # (Auto) 0.01 (0.01-0.20) K/uL Sodium 137 (136-145) mmol/L Potassium 4.0 (3.5-5.1) mmol/L Chloride 102 (98-107) mmol/L Carbon Dioxide 30 (21-32) mmol/L Anion Gap 5 (3-11) BUN 15 (6-23) mg/dl Creatinine 0.94 (0.6-1.2) mg/dl Est Cr Clr Drug Dosing 63.1 ml/min Est GFR ( Amer) 75.4 ml/min Est GFR (Non-Af Amer) 65.0 ml/min BUN/Creatinine Ratio 16.0 (10-20) Glucose 100 H (70-99(Fasting)) mg/dl Lactate 0.6 (0.4-2.0) mmol/L Calcium 9.3 (8.6-10.3) mg/dl Total Bilirubin 0.6 (0.2-1.0) mg/dl AST 18 (13-39) U/L ALT 17 (7-52) U/L Alkaline Phosphatase 65 (34-104) U/L Total Protein 7.6 (6.0-8.3) gm/dl Albumin 4.0 (3.4-5.0) gm/dl Globulin 3.6 (2.5-4.0) gm/dl Albumin/Globulin Ratio 1.1 (0.9-2) Lipase 23 (11-82) U/L Urine Color Yellow Urine Appearance Cloudy A (Clear) Urine pH 7.0 (4.5-7.5) Ur Specific [place] 1.015 (1.000-1.030) Urine Protein Negative (Negative) Urine Glucose (UA) Negative (Negative) Urine Ketones Negative (Negative) Urine Blood Negative (Negative) Urine Nitrite Positive A (Negative) Urine Bilirubin Negative (Negative) Urine Urobilinogen Negative (Negative) Ur Leukocyte Esterase 2+ H (Negative) Urine WBC (Auto) >50 H (0-5) /hpf Urine RBC (Auto) 0-2 (0-2) /hpf U Hyaline Cast (Auto) 0-2 (0-2) /lpf U Epithel Cells (Auto) 0-2 (0-2) /hpf Urine Bacteria (Auto) 4+ H (None Seen) Administered Medications Clonazepam (Clonazepam 1 Mg Tab) 1 mg PO TID SHAYY Stop: 01/02/24 14:31 Last Admin: 12/03/23 15:07 Dose: 1 mg Documented By: WESLEY Lactated Ringer's (Lr) 1,000 mls @ 15 mls/hr IV .Q24H SHAYY Stop: 01/02/24 13:14 Last Infusion: 12/03/23 13:21 Dose: Infused Documented By: Admin: 12/03/23 13:02 Dose: 15 mls/hr Documented By: DAMIEN Sodium Chloride (Nss) 1,000 mls @ 125 mls/hr IV .Q8H SHAYY Stop: 01/02/24 14:31 Last Admin: 12/03/23 15:08 Dose: 125 mls/hr Documented By: WESLEY Oxycodone HCl (Oxycodone Hcl Ir 5 Mg Tab (Immediate Release)) 5 mg PO Q4 PRN PRN Reason: Severe Pain (Scale Score 7-10) Stop: 12/17/23 14:31 Last Admin: 12/03/23 15:07 Dose: 5 mg Documented By: WESLEY Discontinued Medications Sodium Chloride (Nss) 1,000 mls @ 999 mls/hr IV .Q1H1M ONE Stop: 12/03/23 11:12 Last Infusion: 12/03/23 11:57 Dose: Infused Documented By: Admin: 12/03/23 10:48 Dose: 999 mls/hr Documented By: PHIL Daptomycin 275 mg/ Syringe 5.5 mls @ 2.75 mls/min IV Q24H [facility]; Protocol Stop: 12/05/23 11:44 Last Admin: 12/03/23 12:24 Dose: 2.75 mls/min Documented By: PHIL Ceftriaxone Sodium (Rocephin) 2,000 mg in 50 mls @ 100 mls/hr IV NOW STA Stop: 12/03/23 12:46 Last Infusion: 12/03/23 14:48 Dose: Infused Documented By: Admin: 12/03/23 12:34 Dose: 100 mls/hr Documented By: MANFRED Ioversol (Optiray 320 100ml) 94 ml IV ONCE ONE Stop: 12/03/23 11:06 Last Admin: 12/03/23 11:05 Dose: 94 ml Documented By: BERNIE Ketorolac Tromethamine (Ketorolac Tromethamine 15 Mg/Ml Vial) 15 mg IV NOW ONE Stop: 12/03/23 10:13 Last Admin: 12/03/23 10:49 Dose: 15 mg Documented By: PHIL Ondansetron HCl (Ondansetron Inj 2 Mg/Ml 2 Ml Vial) 4 mg IV NOW STA Stop: 12/03/23 10:13 Last Admin: 12/03/23 10:49 Dose: 4 mg Documented By: PHIL Imaging Data Radiologist's Impression: Abdomen/Pelvis CT 12/03/23 10:12 CT OF THE ABDOMEN AND PELVIS WITH CONTRAST CLINICAL HISTORY: Right flank pain. Previous bacteremia. COMPARISON STUDY: CT of the abdomen and pelvis November 12, 2023. TECHNIQUE: Following IV administration of 94 mL of Optiray, axial images of the abdomen and pelvis were obtained from the lung bases to the proximal femurs. Images were reviewed in the axial, sagittal, and coronal planes. IV contrast was administered without complication. Automated exposure control was utilized for the study. A dose lowering technique was utilized adhering to the principles of ALARA. CT DOSE: 516.09 mGy.cm FINDINGS: There is a 1.4 cm subpleural left lower lobe nodule on image 11 of 369. This is indeterminate. No pneumatosis, free air or portal venous gas is present. Moderate splenomegaly is unchanged. Gallstones within the gallbladder are again noted. Is no pericholecystic infiltration. No biliary or pancreatic ductal dilatation. Multiple bilateral renal calculi measure up to 6 mm. There are no left ureteral calculi. There is no left hydronephrosis. Severe right hydroureteronephrosis with delayed nephrogram is similar to CT of November 12, 2023. Wall thickening and enhancement of the distal right ureter on image 295 of 369 similar to prior exam. There is also a small 2 mm distal right ureteral calculus on image 287. No additional ureteral calculi are present. There is mild right perinephric stranding. There is no evidence for a bowel obstruction status post left colon resection with transverse colostomy. No bowel wall thickening is evident. There is a small amount of fluid within the pelvis. Trace gas within the bladder is noted. Major vasculature is patent. IMPRESSION: 1. Severe right hydroureteronephrosis similar to CT of November 12, 2023. This is likely due to persistent wall thickening and enhancement of the distal right ureter. This may represent an underlying stricture due to inflammation/scarring. A neoplastic etiology is considered much less likely however can be assessed on follow-up exams. Punctate 2 mm distal right ureteral calculus which is unlikely to be the cause for hydroureteronephrosis. 2. Bilateral nephrolithiasis. No left hydronephrosis. No left ureteral calculi. 3. No bowel obstruction. Stable postoperative findings. 4. 1.4 cm subpleural left lower lobe pulmonary nodule. This is indeterminate. A chest CT in 3 months for reassessment is recommended. 5. Stable splenomegaly. ACT 112: Positive. There are findings on this exam that require communication between the performing entity and the patient following Patient Test Result Information Act ([place] Act 112) guidelines. Electronically signed by: Nick Tena M.D. 12/03/2023 11:40 AM Discharge Plan Visit Data Chief Complaint: Flank Pain Stated Complaint: KIDNEY PAIN ED Provider: Jama Reaves Discharge Problem: Sepsis, Nephrolithiasis, UTI (urinary tract infection), Renal colic on right side, Hydronephrosis Patient Disposition: Admitted As Inpatient Discharge Instructions Interventions: ED Discharge Assessment Last Done: 12/03/23 12:52 Discharge Problem: Sepsis Qualifiers: Sepsis type: sepsis due to unspecified organism Sepsis acute organ dysfunction status: unspecified Qualified Code(s): A41.9 - Sepsis, unspecified organism UTI (urinary tract infection) Qualifiers: Urinary tract infection type: acute cystitis Hematuria presence: without hematuria Qualified Code(s): N30.00 - Acute cystitis without hematuria Hydronephrosis Qualifiers: Hydronephrosis type: unspecified Qualified Code(s): N13.30 - Unspecified hydronephrosis
[2023-12-03 10:32] LABS: Basophils # (auto) 0.01 K/uL (0.00-0.20); Basophils % (auto) 0.3 %; Hemoglobin 11.7 g/dl (12.0-16.0); Immature Granulocytes # (auto) 0.01 K/uL (0.01-0.20); Immature Granulocytes % (auto) 0.3 %; Lymphocytes # (auto) 0.52 K/uL (1.20-3.40); Lymphocytes % (auto) 14.5 %; Mean Corpuscular Hemoglobin 29.6 pg (25.0-34.0); Mean Corpuscular Hgb Conc 32.5 g/dL (32.0-36.0); Mean Corpuscular Volume 91.1 fL (80.0-100.0); Mean Platelet Volume 9.9 fL (9.4-12.4); Monocytes # (auto) 0.34 K/uL (0.11-0.59); Monocytes % (auto) 9.5 %; Neutrophils # (auto) 2.71 K/uL (1.40-6.50); Neutrophils % (auto) 75.4 %; Platelet Count 102 K/uL (130-400); RDW Coefficient of Variation 14.4 % (11.5-14.5); RDW Standard Deviation 48.3 fL (36.4-46.3); Red Blood Count 3.95 M/uL (4.20-5.40); White Blood Count 3.59 K/ul (4.8-10.8)
[2023-12-03 10:37] LABS: Appearance Urine Cloudy (Clear); Bacteria Urine Automated 4+ (None Seen); Bilirubin Urine Negative (Negative); Blood Urine Negative (Negative); Cast Urine Automated 0-2 /lpf (0-2); Color Urine Yellow; Epithelial Cell Urine Auto 0-2 /hpf (0-2); Glucose Urine UA Negative (Negative); Ketones Urine Negative (Negative); Leukocyte Esterase Urine 2+ (Negative); Nitrite Urine Positive (Negative); Protein Urine Negative (Negative); RBC Urine Automated 0-2 /hpf (0-2); Specific Gravity Urine 1.015 (1.000-1.030); Urobilinogen Urine Negative (Negative); WBC Urine Automated >50 /hpf (0-5)
[2023-12-03 10:48] LABS: Albumin Globulin Ratio 1.1 (0.9-2); Bilirubin,Total 0.6 mg/dl (0.2-1.0); Calcium 9.3 mg/dl (8.6-10.3); Creatinine Clr Calc Pharmacy 63.1 ml/min; Est GFR (African American) 75.4 ml/min; Globulin 3.6 gm/dl (2.5-4.0); Total Protein 7.6 gm/dl (6.0-8.3)
[2023-12-03] MEDS: SODIUM CHLORIDE 0.9% 1,000 ML IV ONE (10:48)
[2023-12-03] MEDS: KETOROLAC TROMETHAMINE 15 MG/ML VIAL IV ONE (10:49)
[2023-12-03] MEDS: ONDANSETRON INJ 2 MG/ML 2 ML VIAL IV STA (10:49)
[2023-12-03] MEDS: OPTIRAY 320 100ml IV ONE (11:05)
--- NOTE | 2023-12-03 11:41 | CT Scan Report ---
CT OF THE ABDOMEN AND PELVIS WITH CONTRAST CLINICAL HISTORY: Right flank pain. Previous bacteremia. COMPARISON STUDY: CT of the abdomen and pelvis November 12, 2023. TECHNIQUE: Following IV administration of 94 mL of Optiray, axial images of the abdomen and pelvis we re obtained from the lung bases to the proximal femurs. Images were reviewed in the axial, sagittal, and coronal planes. IV contrast was administered without complication. Automated exposure control wa s utilized for the study. A dose lowering technique was utilized adhering to the principles of ALARA . CT DOSE: 516.09 mGy.cm FINDINGS: There is a 1.4 cm subpleural left lower lobe nodule on image 11 of 369. This is indetermina te. No pneumatosis, free air or portal venous gas is present. Moderate splenomegaly is unchanged. Gal lstones within the gallbladder are again noted. Is no pericholecystic infiltration. No biliary or perkins creatic ductal dilatation. Multiple bilateral renal calculi measure up to 6 mm. There are no left ure teral calculi. There is no left hydronephrosis. Severe right hydroureteronephrosis with delayed nephr ogram is similar to CT of November 12, 2023. Wall thickening and enhancement of the distal right ure ter on image 295 of 369 similar to prior exam. There is also a small 2 mm distal right ureteral calcu manuel on image 287. No additional ureteral calculi are present. There is mild right perinephric strandi ng. There is no evidence for a bowel obstruction status post left colon resection with transverse col ostomy. No bowel wall thickening is evident. There is a small amount of fluid within the pelvis. Trac e gas within the bladder is noted. Major vasculature is patent. IMPRESSION: 1. Severe right hydroureteronephrosis similar to CT of November 12, 2023. This is likely due to pers istent wall thickening and enhancement of the distal right ureter. This may represent an underlying s tricture due to inflammation/scarring. A neoplastic etiology is considered much less likely however c an be assessed on follow-up exams. Punctate 2 mm distal right ureteral calculus which is unlikely to be the cause for hydroureteronephrosis. 2. Bilateral nephrolithiasis. No left hydronephrosis. No left ureteral calculi. 3. No bowel obstruction. Stable postoperative findings. 4. 1.4 cm subpleural left lower lobe pulmonary nodule. This is indeterminate. A chest CT in 3 months for reassessment is recommended. 5. Stable splenomegaly. ACT 112: Positive. There are findings on this exam that require communication between the performing entity and the patient following Patient Test Result Information Act ([place] Act 112) guidelines. Electronically signed by: Nick Tena M.D. 12/03/2023 11:40 AM
[2023-12-03] MEDS: DAPTOmycin 275 MG in SYRINGE 0 ML IV SCH (12:24)
[2023-12-03] MEDS: cefTRIAXone SODIUM 2,000 MG/50 ML BAG IV STA (12:34)
[2023-12-03] MEDS ORDERED: PROPOFOL IV EMULSION 10 MG/ML 20 ML VIAL IV ONE (12:38)
[2023-12-03] MEDS ORDERED: LIDOCAINE 2% 2 ML VIAL/AMP(20MG/ML) INFIL ONE (12:38)
[2023-12-03] MEDS ORDERED: DEXAMETHASONE SOD INJ 4 MG/ML VIAL ONE (12:38)
[2023-12-03] MEDS ORDERED: ONDANSETRON INJ 2 MG/ML 2 ML VIAL ONE (12:38)
[2023-12-03] MEDS ORDERED: MIDAZOLAM HCL 1 MG/ML 2ML VIAL ONE (12:39)
[2023-12-03] MEDS ORDERED: fentaNYL citrate PF 100 MCG/2 ML VIAL ONE (12:39)
--- NOTE | 2023-12-03 12:43 | Urology Consultation ---
Date of Consultation December 03, 2023 Assessment & Plan (1) UTI (urinary tract infection): (2) Ureteral calculi: (3) Hydronephrosis: (4) Renal colic on right side: (5) Nephrolithiasis: Plan We reviewed her CT imaging, specifically the severe right sided hydronephrosis which appears similar to her prior imaging as well as the small 2 mm distal right ureteral stone. We discussed that given her urine appears infected, her right-sided flank pain, and severe hydronephrosis, our recommendation would be for right ureteral stent placement. Ureteral stents were discussed as well as postoperative issues and pain management. Risks and benefits were discussed. All questions were answered. She is agreeable to proceeding. Will proceed to OR today for cystoscopy, right retrograde pyelogram, right ureteral stent placement. Risks and benefits to be reviewed with patient by Dr. Brunner. She received IV ceftriaxone and daptomycin in the ED. Keep NPO. Urology to follow. Supervising Physician Co-Signing Physician Notes Viewed patient's chart and imaging. I think given her slightly worsened hydronephrosis, urinalysis concerning for infection and questionable small stone, best option is to move forward with cystoscopy and right ureteral stent placement. She is not clear to the infection despite just finishing IV antibiotics and potentially decompression of the kidney may be necessitated at this point. Patient was agreeable. Consent obtained. Patient marked. To the OR for cystoscopy, right retrograde pyelogram and right ureteral stent placement. History of Present Illness History of Present Illness 63 year old female with a complicated history including rectal/colon cancer, radiation cystitis, colostomy status, and bilateral nephrolithiasis and urethral and ureteral stricture. She recently underwent cystoscopy with urethral dilation, Right Retrograde Pyelogram, Ureteroscopy, Ureteral Dilation, Stone Basket Extraction, and Right Stent Placement on 10/29/[address] Bonilla and subsequent right ureteral stent removal in clinic on 11/10/2023. She returned to the emergency department on 11/13/2023 for evaluation of right flank pain, fever and chills. She was found to have enterococcal bacteremia and was treated with IV Daptomycin. She recently completed her course of Daptomycin. She returns to the ED today 12/03/23 with severe right flank pain. On arrival she is afebrile and hemodynamically stable. Labs showing a white count of 3.59, hemoglobin 11.7, creatinine 0.94. Urinalysis positive nitrite, 4+ bacteria, 2+ LE, negative blood. Urine and blood cultures collected and pending. She was given ceftriaxone and daptomycin. CT abdomen pelvis obtained and shows severe right hydronephrosis which is similar to her prior CT and is likely due to persistent wall thickening enhancement of the distal right ureter and may represent an underlying stricture due to inflammation/scarring and a punctate 2 mm distal right ureteral stone which is unlikely to be cause of her hydronephrosis. Additional bilateral nephrolithiasis were noted. No left-sided hydronephrosis or ureteral stone. CT abdomen pelvis- 1. Severe right hydroureteronephrosis similar to CT of November 12, 2023. This is likely due to persistent wall thickening and enhancement of the distal right ureter. This may represent an underlying stricture due to inflammation/scarring. A neoplastic etiology is considered much less likely however can be assessed on follow-up exams. Punctate 2 mm distal right ureteral calculus which is unlikely to be the cause for hydroureteronephrosis. 2. Bilateral nephrolithiasis. No left hydronephrosis. No left ureteral calculi. 3. No bowel obstruction. Stable postoperative findings. 4. 1.4 cm subpleural left lower lobe pulmonary nodule. This is indeterminate. A chest CT in 3 months for reassessment is recommended. 5. Stable splenomegaly. Patient seen at bedside in ED. Awake, resting in bed on arrival. No acute distress. Continues to have right flank pain, managing with medication. Denies fever, chills, nausea, vomiting at present. Voiding without issue. She last ate around 8PM last night. Allergies Allergy/AdvReac Type Severity Reaction Status Date / Time moxifloxacin [From Avelox] Allergy Severe Rash Verified 10/29/23 13:06 Penicillins Allergy Severe Hives Verified 10/29/23 13:06 Sulfa (Sulfonamide Allergy Severe Brain/Head Verified 10/29/23 13:06 Antibiotics) pressure cefoxitin Allergy Unknown Unknown Verified 10/29/23 13:06 vancomycin Allergy Unknown Unknown Verified 10/29/23 13:06 acetaminophen [From Tylenol] AdvReac Unknown Fever Verified 10/29/23 13:09 Antihistamines - Alkylamine AdvReac "skin Verified 10/29/23 13:06 crawling" with antihistamines Home Medications Medication Instructions Recorded Confirmed Type calcium carbonate 600 mg-vitamin 1 tab PO DAILY 10/26/23 11/13/23 History D3 10 mcg (400 unit) tablet (Calcium 600 + D(3)) carboxymethylcellulose 1 drp ophthalmic (eye) BID 10/26/23 11/13/23 History sod-hypromell 0.25 %-0.3 % eye liquid gel drops carboxymethylcellulose sodium 1 % 1 drp ophthalmic (eye) BID 10/26/23 11/13/23 History eye gel in a dropperette (TheraTears) clonazepam 1 mg tablet 1 mg PO TID Anxiety/Insomnia 10/26/23 11/13/23 History docusate sodium 100 mg capsule 200 mg PO DAILY 10/26/23 11/13/23 History (Colace) levothyroxine 25 mcg tablet 25 mcg PO DAILYBB 10/26/23 11/13/23 History naloxone 4 mg/actuation nasal spray 4 mg intranasal UD 10/26/23 11/13/23 History omeprazole 20 mg capsule,delayed 20 mg PO QAM 10/26/23 11/13/23 History release oxycodone 5 mg tablet 5 mg PO Q4 PRN Severe Pain (Scale 10/26/23 11/13/23 History Score 7-10) potassium citrate 10 mEq (1,080 30 meq PO DAILY 10/26/23 11/13/23 History mg) tablet,extended release prednisone 1 mg tablet 2 mg PO DAILY 10/26/23 11/13/23 History tamsulosin 0.4 mg capsule 0.4 mg PO DAILY 10/26/23 11/13/23 History cyanocobalamin (vitamin B-12) 1,000 mcg PO DAILY #30 caps 11/18/23 Rx 1,000 mcg capsule daptomycin 500 mg intravenous 651 mg IV DAILY 11/18/23 Rx solution phenazopyridine 100 mg tablet 100 mg PO Q8H PRN bladder spasms 11/18/23 Rx (Pyridium) #14 tabs Patient History Medical History Raynaud's disease Medullary sponge kidney Panic disorder Hypothyroidism Anal cancer Social History Smoking Status: Former smoker Second Hand Exposure: Yes; Do You Dip or Chew Tobacco: No; Hx Alcohol Use: No Hx Substance Use: No Preferred Language: [place] Communication Ability: Effective Reducing Machine Operator Required: No Beliefs That Will Affect Care: None Current Living Situation: Spouse Feels Safe at Home: Yes Assistive Devices: None Review of Systems Review of Systems: All systems reviewed & are unremarkable except as noted in HPI & below Physical Exam Constitutional: no acute distress Respiratory: no respiratory distress and no labored breathing Musculoskeletal: Head/Neck/Chest: normocephalic Skin: No visible rashes or lesions to exposed skin areas Neurologic: moves all extremities and awake Psychiatric: A+Ox3, euthymic affect Results & Data Vital Signs (Past 12 Hours) Vital Signs Temp Pulse Pulse Resp BP BP Pulse Ox 12/03/23 12:18 92 H 12/03/23 12:03 87 17 97 12/03/23 12:00 114/70 12/03/23 11:30 88 12 96 12/03/23 11:30 109/69 12/03/23 11:00 114/88 12/03/23 10:57 86 14 97 12/03/23 10:21 91 H 20 98 12/03/23 10:21 36.8 C 91 H 20 126/74 98 12/03/23 09:38 36.4 C L 89 14 104/67 97 O2 Del Method 12/03/23 12:18 12/03/23 12:03 12/03/23 12:00 12/03/23 11:30 12/03/23 11:30 12/03/23 11:00 12/03/23 10:57 12/03/23 10:21 Room Air 12/03/23 10:21 Room Air 12/03/23 09:38 Room Air PG Care Time/CCT Total # of Minutes Spent Total Time Spent with Patient: Total time spent is greater than 50% in coordination of care (as documented) at patient's floor/unit and/or counseling patient: Coding Level of Care Code 24737 IN/OBS CONSULT LVL 4,60M Diagnoses UTI (urinary tract infection) N39.0; R31.9 Hematuria presence: with hematuria Urinary tract infection type: site unspecified Ureteral calculi N20.1 Hydronephrosis N13.30 Renal colic on right side N23 Nephrolithiasis N20.0 (1) UTI (urinary tract infection) Hematuria presence: with hematuria Urinary tract infection type: site unspecified Qualified Code(s): N39.0 - Urinary tract infection, site not specified; R31.9 - Hematuria, unspecified
--- NOTE | 2023-12-03 12:56 | History & Physical Report ---
Date of Service December 03, 2023 Assessment & Plan (1) Sepsis: Plan: Acute - Meets for sepsis with HR>90, WBC <4, and identified source -> UTI - Full admit to [facility] and the [facility] - Based on prior cultures, will continue treatment with broad spectrum antibiotics including daptoymcin and ceftriaxone - Blood and urine cultures have been collected, pending - Urology has been consulted, see below - Given sepsis syndrome and plan for OR, would recommend stress dose steroids - Continue IVF w/ NSS at 125 ml/hr - NPO status -> advance diet to regular after OR (2) Hydroureter on right: Plan: Acute, severe - Secondary to ureteral stricture - Appreciate urology input, pt kept NPO with plans for OR this afternoon - Multimodal pain control, can resume oxycodone once out of OR - Utilize ibuprofen for mild pain/fever (allergy to acetaminophen?) (3) Anxiety: Plan: Chronic - Continue Clonazepam 1mg TID (4) SLE (systemic lupus erythematosus): Plan: Chronic - On chronic prednisone therapy at 2mg daily - Would consider stress dose steroids w/ solucortef given she meets sepsis and is going to the OR - Can then taper back to regular pred dose (5) UTI (urinary tract infection): (6) Ureterolithiasis: Plan Other chronic medical issues - Secondary thrombocytopenia: chronic, follow. Defer chemoppx for VTE. - Pancytopenia: chronic anemia and thrombocytopenia - wbc count suppressed likely due to infection, monitor cbc - Hypothyroidism: resume levothyroxine VTE prophylaxis with SCDs to b/l LE given thrombocytopenia, defer chemoppx. AM labs have been ordered including CBC, BMP and Mag. Plan of care has been d/w Dr. Dent who will also see and evaluate this patient, further orders as recommended by attending. History of Present Illness Chief Complaint: Right flank pain Primary Care Provider: Caitie Aden DO Gilma is a 63 yo F with a pmhx of SLE on chronic prednisone therapy, thrombocytopenia, rectal CA s/p hemicolectomy and colostomy creation, anxiety and hypothyroidism who presents to the ER today c/o severe right sided flank pain and does endorse gross hematuria 2 days prior to presentation. She has a rather complicated recent history of sepsis with bacteremia secondary to UTI and renal calculi due to Enterococcus faecalis. She reports that she just completed the course of antibiotics 2 days ago. She denies nausea, vomiting, fever or chills. Her primary complaint that drove her to seek evaluation today is her flank pain. In the ER, her wbc count is suppressed at 3.59 and platelet count is 102 which is at her baseline. Her renal function is preserved but her UA appears grossly infected. She underwent a CTAP w/ contrast that demonstrated severe right hydroureteronephrosis with persistent wall thickening and enhancement of the distal right ureter which may be an underlying stricture. There is also a 2mm nonobstructing distal R ureteral calculus noted. Incidentally, she is noted to have a 1.4 cm subpleural left lower lobe nodule that will require a 3 month follow up. She was treated with a dose of IV ceftriaxone and daptomycin and 1L of NSS. Urology has been contacted and plans to take to the OR today for cystoscopy and R retrograde pyelogram with stent placement. She was referred to hospital medicine team for admission. Allergies Allergy/AdvReac Type Severity Reaction Status Date / Time moxifloxacin [From Avelox] Allergy Severe Rash Verified 12/03/23 13:07 Penicillins Allergy Severe Hives Verified 12/03/23 13:07 Sulfa (Sulfonamide Allergy Severe Brain/Head Verified 12/03/23 13:07 Antibiotics) pressure cefoxitin Allergy Unknown Unknown Verified 12/03/23 13:07 vancomycin Allergy Unknown Unknown Verified 12/03/23 13:07 acetaminophen [From Tylenol] AdvReac Unknown Fever Verified 12/03/23 13:07 Antihistamines - Alkylamine AdvReac "skin Verified 12/03/23 13:07 crawling" with antihistamines Home Medications Medication Instructions Recorded Confirmed Type calcium 600 mg (as 1 tab PO DAILY 10/26/23 12/03/23 History carbonate)-vitamin D3 10 mcg (400 unit) tablet (Calcium 600 + D(3)) carboxymethylcellulose 1 drp ophthalmic (eye) BID 10/26/23 12/03/23 History sod-hypromell 0.25 %-0.3 % eye liquid gel drops carboxymethylcellulose sodium 1 % 1 drp ophthalmic (eye) BID 10/26/23 12/03/23 History eye gel in a dropperette (TheraTears) clonazepam 1 mg tablet 1 mg PO TID Anxiety/Insomnia 10/26/23 12/03/23 History docusate sodium 100 mg capsule 200 mg PO DAILY 10/26/23 12/03/23 History (Colace) levothyroxine 25 mcg tablet 25 mcg PO DAILYBB 10/26/23 12/03/23 History naloxone 4 mg/actuation nasal spray 4 mg intranasal UD 10/26/23 12/03/23 History omeprazole 20 mg capsule,delayed 20 mg PO QAM 10/26/23 12/03/23 History release oxycodone 5 mg tablet 5 mg PO Q4 PRN Severe Pain (Scale 10/26/23 12/03/23 History Score 7-10) potassium citrate 10 mEq (1,080 30 meq PO DAILY 10/26/23 12/03/23 History mg) tablet,extended release prednisone 1 mg tablet 2 mg PO DAILY 10/26/23 12/03/23 History tamsulosin 0.4 mg capsule 0.4 mg PO DAILY 10/26/23 12/03/23 History cyanocobalamin (vitamin B-12) 1,000 mcg PO DAILY #30 caps 11/18/23 12/03/23 Rx 1,000 mcg capsule phenazopyridine 100 mg tablet 100 mg PO Q8H PRN bladder spasms 11/18/23 12/03/23 Rx (Pyridium) #14 tabs Past Med/Surg History Problem List (Updated 12/04/23 @ 10:21 by Dennis Dent MD) UTI (urinary tract infection) Sepsis (Acute) Sepsis Ureterolithiasis Enterococcal bacteremia Anxiety Colostomy status SLE (systemic lupus erythematosus) Secondary thrombocytopenia Pancytopenia Hydronephrosis (Acute) Ureteral calculi History of creation of ostomy (Acute) Renal colic on right side (Acute) UTI (urinary tract infection) (Acute) Hydroureter on right (Acute) Nephrolithiasis (Acute) Medical History Raynaud's disease Medullary sponge kidney Panic disorder Hypothyroidism Anal cancer Social History Smoking Status: Never smoker Second Hand Exposure: Yes; Do You Dip or Chew Tobacco: No; Hx Alcohol Use: No Hx Substance Use: No Preferred Language: Portuguese Communication Ability: Effective Expediter Clerk Required: No Beliefs That Will Affect Care: None Current Living Situation: Spouse Other Information That Helps Us Care for You: No Feels Safe at Home: Yes Safety Concerns: Feels Safe At This Time Assistive Devices: Denture - Upper, Denture - Lower and Glasses Review of Systems 2 Review of Systems: All systems reviewed and are unremarkable except as noted in HPI and below. +R flank pain Denies fever, chills, fatigue, headache, nasal congestion, sore throat, cough, chest pain, shortness of breath, palpitations, orthopnea, PND, n/v/d, constipation, dysuria, hematuria, frequency, back pain, joint pain or swelling, easy bruising or bleeding, skin lesions or rashes. Physical Exam 2 Physical Exam: GENERAL: 63 yo WD/WN WF. NAD. EYES: EOMI. PERRLA. Anicteric. HENT: Moist mucous membranes. No scleral icterus. No cervical lymphadenopathy. LUNGS: Clear to auscultation bilaterally. No accessory muscle use. No W/R/R. CARDIOVASCULAR: Regular rate and rhythm. No M/G/R. No JVD. ABDOMEN: Soft, non-tender and non-distended. No palpable masses. BS normoactive x 4 quad. +CVA tenderness on the R. EXTREMITIES: No edema. Non-tender. Peripheral pulses +2/4. NEUROLOGIC: A&O x3. No focal neurological deficits. CN II-XII grossly intact. PSYCHIATRIC: Cooperative. Appropriate mood and affect. SKIN: Warm, dry, intact. No rashes or lesions. Results & Data Results & Data Vital Signs (Past 12 Hours) Vital Signs Temp Pulse Pulse Resp BP BP Pulse Ox 12/03/23 12:18 92 H 12/03/23 12:03 87 17 97 12/03/23 12:00 114/70 12/03/23 11:30 88 12 96 12/03/23 11:30 109/69 12/03/23 11:00 114/88 12/03/23 10:57 86 14 97 12/03/23 10:21 91 H 20 98 12/03/23 10:21 36.8 C 91 H 20 126/74 98 12/03/23 09:38 36.4 C L 89 14 104/67 97 O2 Del Method 12/03/23 12:18 12/03/23 12:03 12/03/23 12:00 12/03/23 11:30 12/03/23 11:30 12/03/23 11:00 12/03/23 10:57 12/03/23 10:21 Room Air 12/03/23 10:21 Room Air 12/03/23 09:38 Room Air Laboratory Results 12/03/23 10:15 12/03/23 10:15 Diagnostic Findings Abdomen/Pelvis CT 12/03/23 10:12 CT OF THE ABDOMEN AND PELVIS WITH CONTRAST CLINICAL HISTORY: Right flank pain. Previous bacteremia. COMPARISON STUDY: CT of the abdomen and pelvis November 12, 2023. TECHNIQUE: Following IV administration of 94 mL of Optiray, axial images of the abdomen and pelvis were obtained from the lung bases to the proximal femurs. Images were reviewed in the axial, sagittal, and coronal planes. IV contrast was administered without complication. Automated exposure control was utilized for the study. A dose lowering technique was utilized adhering to the principles of ALARA. CT DOSE: 516.09 mGy.cm FINDINGS: There is a 1.4 cm subpleural left lower lobe nodule on image 11 of 369. This is indeterminate. No pneumatosis, free air or portal venous gas is present. Moderate splenomegaly is unchanged. Gallstones within the gallbladder are again noted. Is no pericholecystic infiltration. No biliary or pancreatic ductal dilatation. Multiple bilateral renal calculi measure up to 6 mm. There are no left ureteral calculi. There is no left hydronephrosis. Severe right hydroureteronephrosis with delayed nephrogram is similar to CT of November 12, 2023. Wall thickening and enhancement of the distal right ureter on image 295 of 369 similar to prior exam. There is also a small 2 mm distal right ureteral calculus on image 287. No additional ureteral calculi are present. There is mild right perinephric stranding. There is no evidence for a bowel obstruction status post left colon resection with transverse colostomy. No bowel wall thickening is evident. There is a small amount of fluid within the pelvis. Trace gas within the bladder is noted. Major vasculature is patent. IMPRESSION: 1. Severe right hydroureteronephrosis similar to CT of November 12, 2023. This is likely due to persistent wall thickening and enhancement of the distal right ureter. This may represent an underlying stricture due to inflammation/scarring. A neoplastic etiology is considered much less likely however can be assessed on follow-up exams. Punctate 2 mm distal right ureteral calculus which is unlikely to be the cause for hydroureteronephrosis. 2. Bilateral nephrolithiasis. No left hydronephrosis. No left ureteral calculi. 3. No bowel obstruction. Stable postoperative findings. 4. 1.4 cm subpleural left lower lobe pulmonary nodule. This is indeterminate. A chest CT in 3 months for reassessment is recommended. 5. Stable splenomegaly. ACT 112: Positive. There are findings on this exam that require communication between the performing entity and the patient following Patient Test Result Information Act ([place] Act 112) guidelines. Electronically signed by: Nick Tena M.D. 12/03/2023 11:40 AM Code Status & VTE Plan VTE Prophylaxis Plan VTE Prophylaxis will be ordered: Yes Supervising Physician Co-Signing Physician Notes I personally saw and examined the patient. I independently reviewed the labs, EKG, imaging, problem list, medication list, past medical history and family history. I verified all brown points and agree with Sri Pride PA-C with the following exceptions and/or additions: 63 year old female presents to the ER with right sided flank pain. 2mm ureterolithiasis with stricture on CT and UA concerning for infection. Similar recent presentation in November when she was bacteremic. Patient was seen s/p ureteral stent insertion and much improved O/E HS RRR, no murmurs, Chest CTAB, Abdo SNT, mild right CVA tenderness A/P Sepsis / UTI / ureterolithiasis - source control with ureteral stent insertion. Daptomycin + ceftriaxone based on prior cultures pending urine and blood cultures (blood cultures notable taken after initial antibiotics). Longer term management ?longer term stent per urology recommendations PG Care Time/CCT Total # of Minutes Spent Total Time Spent with Patient: Total time spent is greater than 50% in coordination of care (as documented) at patient's floor/unit and/or counseling patient: 76 minutes Coding Level of Care Code 72821 INT INP/OBS CARE 3/75MIN Diagnoses Sepsis A41.9 Hydroureter on right N13.4 Anxiety F41.9 SLE (systemic lupus erythematosus) M32.9 UTI (urinary tract infection) N39.0 Ureterolithiasis N20.1
[2023-12-03] MEDS: LACTATED RINGER'S 1,000 ML IV SCH (13:02)
--- NOTE | 2023-12-03 13:40 | Anesthesiology Consultation ---
Date of Service December 03, 2023 Assessment & Plan Chart Review Chart Review: Acceptable Risk for Surgery Consults Requested none ASA ASA3 Proposed Anesthesia Anesthesia Type: MAC Risk / Benefits Reviewed With: PT / POA / Parent / Guardian, Accepts Plan and Informed Consent Obtained History Surgery Operation Date: 12/03/23 09:50 Proposed Procedures p Cystoscopy, Right Retrgrade Pyelogram with Stent Placement - Spenser Brunner MD Height/Weight Height: 5 ft 11 in Weight: 64.4 kg Allergies Allergy/AdvReac Type Severity Reaction Status Date / Time moxifloxacin [From Avelox] Allergy Severe Rash Verified 12/03/23 13:07 Penicillins Allergy Severe Hives Verified 12/03/23 13:07 Sulfa (Sulfonamide Allergy Severe Brain/Head Verified 12/03/23 13:07 Antibiotics) pressure cefoxitin Allergy Unknown Unknown Verified 12/03/23 13:07 vancomycin Allergy Unknown Unknown Verified 12/03/23 13:07 acetaminophen [From Tylenol] AdvReac Unknown Fever Verified 12/03/23 13:07 Antihistamines - Alkylamine AdvReac "skin Verified 12/03/23 13:07 crawling" with antihistamines Medications Home Medications Medication Instructions Recorded Confirmed Last Taken calcium carbonate 600 mg-vitamin 1 tab PO DAILY 10/26/23 12/03/23 10/25/23 D3 10 mcg (400 unit) tablet (Calcium 600 + D(3)) carboxymethylcellulose 1 drp ophthalmic (eye) BID 10/26/23 12/03/23 10/25/23 sod-hypromell 0.25 %-0.3 % eye liquid gel drops carboxymethylcellulose sodium 1 % 1 drp ophthalmic (eye) BID 10/26/23 12/03/23 10/25/23 eye gel in a dropperette (TheraTears) clonazepam 1 mg tablet 1 mg PO TID Anxiety/Insomnia 10/26/23 12/03/23 10/25/23 docusate sodium 100 mg capsule 200 mg PO DAILY 10/26/23 12/03/23 10/25/23 (Colace) levothyroxine 25 mcg tablet 25 mcg PO DAILYBB 10/26/23 12/03/23 12/03/23 06:45 naloxone 4 mg/actuation nasal spray 4 mg intranasal UD 10/26/23 12/03/23 10/25/23 omeprazole 20 mg capsule,delayed 20 mg PO QAM 10/26/23 12/03/23 10/25/23 release oxycodone 5 mg tablet 5 mg PO Q4 PRN Severe Pain (Scale 10/26/23 12/03/23 12/03/23 08:00 Score 7-10) potassium citrate 10 mEq (1,080 30 meq PO DAILY 10/26/23 12/03/23 12/02/23 09:00 mg) tablet,extended release prednisone 1 mg tablet 2 mg PO DAILY 10/26/23 12/03/23 12/02/23 09:00 tamsulosin 0.4 mg capsule 0.4 mg PO DAILY 10/26/23 12/03/23 12/02/23 cyanocobalamin (vitamin B-12) 1,000 mcg PO DAILY #30 caps 11/18/23 12/03/23 Unknown 1,000 mcg capsule phenazopyridine 100 mg tablet 100 mg PO Q8H PRN bladder spasms 11/18/23 12/03/23 2 Days Ago (Pyridium) #14 tabs ~12/01/23 Active Medications Generic Name Dose Route Start Last Admin Trade Name Freq PRN Reason Stop Dose Admin Daptomycin 275 mg/ Syringe 5.5 mls @ 2.75 mls/min 12/03/23 11:45 12/03/23 12:24 IV 12/05/23 11:44 2.75 mls/min Q24H SHAYY Administration Protocol Lactated Ringer's 1,000 mls @ 15 mls/hr 12/03/23 13:15 12/03/23 13:21 Lr IV 01/02/24 13:14 Infused .Q24H SHAYY Infusion NPO Date Last Intake of Fluids: 12/03/23 Time Last Intake of Fluids: 06:45 Date Last Intake of Solids: 12/02/23 Time Last Intake of Solids: 20:30 Past Medical History Medical History Raynaud's disease Medullary sponge kidney Panic disorder Hypothyroidism Anal cancer Exercise / Class Metabolic Activity II 4-5 Yardwork/Stairs/Walk up hill Past Anesthesia History No Hx of Anesthesia Complications History of PONV No Hx of PONV Social History Smoking Status: Former smoker Do You Dip or Chew Tobacco: No Hx Alcohol Use: No Hx Substance Use: No Review of Systems ROS Unobtainable: All systems reviewed & are unremarkable except as noted in HPI & below Constitutional: as per Subjective / HPI Eyes: as per Subjective / HPI Ear, Nose, Mouth, Throat: as per Subjective / HPI Respiratory: as per Subjective / HPI Cardiovascular: as per Subjective / HPI Gastrointestinal: as per Subjective / HPI Genitourinary (Female): as per Subjective / HPI Musculoskeletal: as per Subjective / HPI Integumentary: as per Subjective / HPI Neurologic: as per Subjective / HPI Psychiatric: as per Subjective / HPI Endocrine: as per Subjective / HPI Hematologic / Lymphatic: as per Subjective / HPI Allergy / Immunological: as per Subjective / HPI Physical Exam Vital Signs Last Vital Signs Temp 37 C 12/03/23 12:53 Pulse 95 H 12/03/23 12:53 Resp 20 12/03/23 12:53 BP 136/61 12/03/23 12:53 Pulse Ox 97 12/03/23 12:53 O2 Del Method Room Air 12/03/23 12:53 Constitutional no acute distress ENMT Mouth: + edentulous Thyromental Distance: < 3.5 Finger Breadths Mallampati Class: II Neck trachea midline Respiratory no respiratory distress Auscultation: lungs clear to auscultation bilaterally Cardiovascular Rate/Rhythm: regular rhythm Neurologic moves all extremities Psychiatric Orientation: alert and oriented x 3 Testing Laboratory Results 12/03/23 10:15 12/03/23 10:15 Urine Color Yellow 12/03/23 10:15 Urine Appearance Cloudy (Clear) A 12/03/23 10:15 Urine pH 7.0 (4.5-7.5) 12/03/23 10:15 Ur Specific [place] 1.015 (1.000-1.030) 12/03/23 10:15 Urine Protein Negative (Negative) 12/03/23 10:15 Urine Glucose (UA) Negative (Negative) 12/03/23 10:15 Urine Ketones Negative (Negative) 12/03/23 10:15 Urine Nitrite Positive (Negative) A 12/03/23 10:15 Ur Leukocyte Esterase 2+ (Negative) H 12/03/23 10:15 Urine WBC (Auto) >50 /hpf (0-5) H 12/03/23 10:15 Urine RBC (Auto) 0-2 /hpf (0-2) 12/03/23 10:15 U Hyaline Cast (Auto) 0-2 /lpf (0-2) 12/03/23 10:15 U Epithel Cells (Auto) 0-2 /hpf (0-2) 12/03/23 10:15 Urine Bacteria (Auto) 4+ (None Seen) H 12/03/23 10:15
[2023-12-03] MEDS ORDERED: ePHEDrine sulfate 50 MG/5 ML SYR ONE (13:41)
[2023-12-03] MEDS ORDERED: DIATRIZOATE MEGLUMINE 30% 100ML VIAL INSTIL PRN (13:42)
--- NOTE | 2023-12-03 13:52 | Operative Report ---
PG Post Operative Report Pre & Post Diagnosis Right hydroureteronephrosis, UTI Operation Date: 12/03/23 09:50 <No data on this case meets the specified criteria> Right hydroureteronephrosis, UTI I identified the patient and participated in the time-out.: Yes Procedure Cystoscopy, right retrograde pyelogram with radiographic interpretation, right ureteral stent placement Operation Date: 12/03/23 09:50 <No data on this case meets the specified criteria> Surgeon Spenser Brunner MD Death Claim Examiner None Estimated Blood Loss 0 Findings See Below Very dilated tortuous right ureter. Stent in appropriate position. Significant right hydronephrosis. Bladder consistent with radiation cystitis Specimens None Drains 7 [place] by 26 cm right ureteral comfort stent Anesthesia Type MAC Complications none Indications 63-year-old female with a history of radiation and suspected right distal ureteral stricture and also history of nephrolithiasis. Recently had her stones treated on the right side by Dr. Bonilla and the stent removed. Presented with right flank pain, worsening hydronephrosis, concern for UTI and questionable punctate stone in right distal ureter. Decision made to take her to the OR for stent. Description of Procedure After informed consent was obtained, the patient was transported operative suite. MAC anesthesia was induced. The patient was placed in dorsolithotomy position prepped and draped in a sterile fashion. They received preoperative ceftriaxone and daptomycin for antibiotic prophylaxis. An appropriate surgical timeout was performed. A 22 [place] rigid scope was inserted per urethra into the bladder. Perez cystoscopy revealed no stones or lesions. I turned my attention the right ureteral orifice and intubated this with a 5 [place] open-ended catheter. A right retrograde pyelogram was shot which showed significant hydronephrosis and a very dilated tortuous ureter. A sensor wire was advanced into the kidney and confirmed fluoroscopically. A 7 [place] by 26 cm right ureteral comfort stent was deployed with a good proximal coil in the renal pelvis and a good distal coil noted in the bladder, confirmed fluoroscopically and under direct visualization, respectively. I did have to use a grasper to pull back the distal coil to get an appropriate coil. The bladder was emptied and the scope was removed. This concluded the end of the case. All counts were correct at the end of the case. I was present, scrubbed, and actively participated for the entirety of the procedure. I attest to the content of the Intraoperative Record and any orders documented therein. Any exceptions are noted below.
--- NOTE | 2023-12-03 14:06 | Anesthesiology Progress Note ---
Date of Service December 03, 2023 Anesthesia Post Procedure Vital Signs Vital Signs: Temp Pulse Pulse Resp BP BP Pulse Ox 12/03/23 13:55 100 H 19 119/57 L 94 12/03/23 13:49 36.5 C 109 H 16 122/65 96 12/03/23 12:53 37 C 95 H 20 136/61 97 12/03/23 12:18 92 H 12/03/23 12:03 87 17 97 12/03/23 12:00 114/70 12/03/23 11:30 88 12 96 12/03/23 11:30 109/69 12/03/23 11:00 114/88 12/03/23 10:57 86 14 97 12/03/23 10:21 91 H 20 98 12/03/23 10:21 36.8 C 91 H 20 126/74 98 12/03/23 09:38 36.4 C L 89 14 104/67 97 O2 Del Method 12/03/23 13:55 Room Air 12/03/23 13:49 Room Air 12/03/23 12:53 Room Air 12/03/23 12:18 12/03/23 12:03 12/03/23 12:00 12/03/23 11:30 12/03/23 11:30 12/03/23 11:00 12/03/23 10:57 12/03/23 10:21 Room Air 12/03/23 10:21 Room Air 12/03/23 09:38 Room Air Pain Intensity Right Flank: Pain Intensity: 7 Transfer of Care Handoff Completed per policy Notes Mental Status: alert / awake / arousable Patient Amnestic to Procedure: Yes Nausea / Vomiting: adequately controlled Pain: adequately controlled Airway Patency, RR, SpO2: stable & adequate BP & HR: stable & adequate Hydration State: stable & adequate Anesthetic Complications: no major complications apparent
[2023-12-03] MEDS ORDERED: ALUMINUM/MAGNESIUM SUSP 30 ML UDC PO PRN (14:32)
[2023-12-03] MEDS ORDERED: MAGNESIUM HYDROXIDE SUSP 30 ML UDC PO PRN (14:32)
[2023-12-03] MEDS ORDERED: IBUPROFEN 200 MG/10 ML UDC PO PRN (14:32)
[2023-12-03] MEDS ORDERED: ONDANSETRON INJ 2 MG/ML 2 ML VIAL IV PRN (14:32)
[2023-12-03] MEDS ORDERED: DAPTOmycin 250 MG in SYRINGE 0 ML IV SCH (15:00)
[2023-12-03] MEDS: clonazePAM 1 MG TAB PO SCH (15:07)
[2023-12-03] MEDS: oxyCODONE HCL IR 5 MG TAB (IMMEDIATE RELEASE) PO PRN (15:07)
[2023-12-03] MEDS: SODIUM CHLORIDE 0.9% 1,000 ML IV SCH (15:08)
[2023-12-03] MEDS ORDERED: ACETAMINOPHEN 325 MG TAB PO PRN (15:56)
--- NOTE | 2023-12-03 16:05 | Fluoroscopy Report ---
FL retrograde includes kub CLINICAL HISTORY: RIGHT SIDED CYSTO COMPARISON STUDY: CT of the abdomen and pelvis performed earlier today. FLUOROSCOPY TIME: 27 seconds. Ka, r: 3.50 mGy FLUOROSCOPIC IMAGES: 5 FINDINGS: Fluoroscopy was provided during right retrograde pyelogram with right ureteral stent placem ent. The right ureter is tortuous. Right hydroureteronephrosis is again noted. The proximal aspect of the stent is within the right renal pelvis. Contrast within the left collecting system and left uret er is likely from recent CT. IMPRESSION: Fluoroscopy provided during right retrograde exam with right ureteral stent placement. ACT 112: Negative or not required by law. Electronically signed by: Nick Tena M.D. 12/03/2023 4:03 PM
[2023-12-03] MEDS: HYDROCORTISONE SOD 100 MG in SYRINGE 0 ML IV STA (17:02)
[2023-12-03] MEDS: DOCUSATE SODIUM 100 MG CAP PO SCH (20:18)
[2023-12-03] MEDS: ARTIFICIAL TEARS OP SCH (20:20)
[2023-12-04] MEDS: HYDROCORTISONE SOD 50 MG in SYRINGE 0 ML IV SCH (02:05)
[2023-12-04] MEDS: LEVOTHYROXINE SODIUM 25 MCG TABLET PO SCH (05:58)
[2023-12-04 06:35] LABS: Hematocrit (blood only) 30.8 % (37.0-47.0); Hemoglobin 10.3 g/dl (12.0-16.0); Immature Granulocytes # (auto) 0.02 K/uL (0.01-0.20); Immature Granulocytes % (auto) 0.8 %; Lymphocytes # (auto) 0.39 K/uL (1.20-3.40); Lymphocytes % (auto) 15.1 %; Mean Corpuscular Hemoglobin 30.4 pg (25.0-34.0); Mean Corpuscular Hgb Conc 33.4 g/dL (32.0-36.0); Mean Corpuscular Volume 90.9 fL (80.0-100.0); Mean Platelet Volume 9.8 fL (9.4-12.4); Monocytes # (auto) 0.13 K/uL (0.11-0.59); Neutrophils # (auto) 2.04 K/uL (1.40-6.50); Neutrophils % (auto) 79.1 %; Platelet Count 95 K/uL (130-400); RDW Coefficient of Variation 14.3 % (11.5-14.5); RDW Standard Deviation 47.5 fL (36.4-46.3); Red Blood Count 3.39 M/uL (4.20-5.40); White Blood Count 2.58 K/ul (4.8-10.8)
[2023-12-04 06:51] LABS: BUN Creatinine Ratio 16.5 (10-20); Calcium 8.4 mg/dl (8.6-10.3); Creatinine Clr Calc Pharmacy 70.7 ml/min; Magnesium 1.8 mg/dl (1.7-2.4); Potassium 4.1 mmol/L (3.5-5.1)
[2023-12-04] MEDS: predniSONE 1 MG TAB PO SCH (07:49)
[2023-12-04] MEDS: CALCIUM 600MG + VIT D 400 IU TAB PO SCH (07:49)
[2023-12-04] MEDS: POTASSIUM CITRATE 10 MEQ TAB PO SCH (07:50)
[2023-12-04] MEDS: PANTOprazole 40 MG TAB PO SCH (07:51)
[2023-12-04] MEDS: CYANOCOBALAMIN (B-12) 500 MCG TABLET PO SCH (07:51)
[2023-12-04] MEDS: TAMSULOSIN HCL 0.4 MG CAP PO SCH (07:51)
[2023-12-04] MEDS ORDERED: predniSONE 1 MG TAB PO SCH (09:00)
--- NOTE | 2023-12-04 10:07 | Hospitalist Progress Note ---
Date of Service December 04, 2023 Assessment & Plan (1) UTI (urinary tract infection): (2) Hydronephrosis: (3) Sepsis: Plan Gilma Lantigua is a 63yo F w h/o SLE managed w chronic steroids, thrombocytopenia, rectal cancer s/p hemicolectomy w colostomy, MALT lymphoma s/p chemo-rad, ra diation cystitis, and nephrolithiasis c/b ureteral strictures. #UTI #Hydronephrosis - Currently POD #1 s/p cystoscopy, right retrograde pyelogram, & right ureteral stent placement - Subjectively doing well, tolerating the stent, voiding without issue - Afebrile, WBC 2.58, Cr 0.85 - UCx prelim with gram-negative bacilli; blood cx pending - Continue IV rocephin 2000mg and IV daptomycin 250mg; tailor per culture sensitivities - Followed by urology; will discuss stent management outpatient #Sepsis - Source likely UTI - Initially met SIRS criteria w HR > 90 and WBC <4; vitals have since stabilized - Discontinued IVF due to adequate oral intake; continue to monitor vitals & renal fxn - Based on prior cultures, will continue treatment with broad spectrum antibiotics including daptoymcin and ceftriaxone - Blood and urine cultures have been collected, pending; prelim, no growth Admission and Anticipated Discharge Date Admission Date: December 03, 2023 Supervising Physician Co-Signing Physician Notes Attending attestation Pt seen and examined in concert with Dr. Fernandez. In agreement with the documented findings as noted in the resident documentation with any exceptions or additions as noted here. No acute complaints at time of examination. On examination, S1/S2 nl RRR no MCG. CTAB. Abd NT/ND BS+ve UTI in the setting of hydronephrosis - Urology recommendations appreciated - continue ceftriaxone and daptomycin Sepsis in the setting of UTI - follow up BCx, UCx, abx as above Else see resident documentation as noted. Subjective Patient was resting comfortably in bed. Reports feeling "great." Is eating, drinking, ambulating, and passing flatus. Denies SALDIVAR, SOB, CP, n/v, abd pain, flank pain, dysuria, hematuria, muscle or joint aches. Review of Systems Review of Systems: Per HPI Physical Exam Physical Exam: Gen: NAD, resting comfortably HEENT: NCAT, PERRL CV: RRR, no m/r/g, S1/S2 normal Resp: CTAB, symmetrical chest rise, breathing non-labored Abd: Soft, NT/ND, notable scars and bruising from past surgeries, ostomy clean and intact MSK: Full ROM, no gross deformities Skin: Warm, dry, pink, no rashes or lesions Neuro: AOx3, CN II-XII grossly intact Psych: Mood-affect congruent. Speech pace and content normal. Results & Data Results & Data Vital Signs (Past 12 Hours) Vital Signs Temp Pulse Pulse Pulse Resp BP Pulse Ox 12/04/23 07:31 36.5 C 83 18 112/69 95 12/04/23 07:20 67 12/04/23 03:38 36.5 C 73 18 104/60 96 12/03/23 23:40 36.9 C 82 16 90/53 L 95 O2 Del Method 12/04/23 07:31 Room Air 12/04/23 07:20 12/04/23 03:38 Room Air 12/03/23 23:40 Room Air Resident Activity Tracking Resident Involvement: Resident Care Provided Care Provided: Adult Hospital Medicine (1) UTI (urinary tract infection) Hematuria presence: without hematuria Urinary tract infection type: acute cystitis Qualified Code(s): N30.00 - Acute cystitis without hematuria (2) Hydronephrosis Hydronephrosis type: unspecified Qualified Code(s): N13.30 - Unspecified hydronephrosis
[2023-12-04] MEDS: cefTRIAXone SODIUM 2,000 MG/50 ML BAG IV SCH (12:00)
[2023-12-04] MEDS: DAPTOmycin 250 MG in SYRINGE 0 ML IV SCH (12:00)
--- NOTE | 2023-12-04 12:26 | Urology Progress Note ---
Date of Service December 04, 2023 Assessment & Plan (1) UTI (urinary tract infection): (2) Hydronephrosis: Plan: - POD #1 s/p Cystoscopy, right retrograde pyelogram with radiographic interpretation, right ureteral stent placement - Feeling much better today, tolerating the stent with minimal bother - She is afebrile with stable vitals - Labs show a white count of 2.58 and normal renal function - Urine culture prelim with gram-negative bacilli; blood cultures pending - Voiding spontaneously, continue to monitor. Bladder scan PRN. - Continue antibiotics and tailor per culture sensitivities - Continue supportive care - No further urological intervention indicated. Will plan to maintain right ureteral stent. Will arrange an outpatient follow-up to discuss stent management. - Urology to follow Admission and Anticipated Discharge Date Admission Date: December 03, 2023 Subjective Pt seen at bedside this AM Awake and resting in bed on arrival No acute distress She is feeling much better today No reported pain at present Denies f/c/n/v Voiding without issue Review of Systems Constitutional: as per Subjective / HPI Genitourinary: as per Subjective / HPI Physical Exam Constitutional: no acute distress Respiratory: no respiratory distress and no labored breathing Neurologic: moves all extremities and awake Psychiatric: A+Ox3, euthymic affect Results & Data Vital Signs (Past 12 Hours) Vital Signs Temp Pulse Pulse Pulse Resp BP Pulse Ox 12/04/23 07:31 36.5 C 83 18 112/69 95 12/04/23 07:20 67 12/04/23 03:38 36.5 C 73 18 104/60 96 12/03/23 23:40 36.9 C 82 16 90/53 L 95 O2 Del Method 12/04/23 07:31 Room Air 12/04/23 07:20 12/04/23 03:38 Room Air 12/03/23 23:40 Room Air PG Care Time/CCT Total # of Minutes Spent Total Time Spent with Patient: Total time spent is greater than 50% in coordination of care (as documented) at patient's floor/unit and/or counseling patient: Coding Level of Care Code 46389 SUB INP/OBS CARE 2/35MIN Diagnoses UTI (urinary tract infection) N30.00 Hematuria presence: without hematuria Urinary tract infection type: acute cystitis Hydronephrosis N13.30 Hydronephrosis type: unspecified (1) UTI (urinary tract infection) Hematuria presence: without hematuria Urinary tract infection type: acute cystitis Qualified Code(s): N30.00 - Acute cystitis without hematuria (2) Hydronephrosis Hydronephrosis type: unspecified Qualified Code(s): N13.30 - Unspecified hydronephrosis
--- NOTE | 2023-12-05 07:04 | Discharge Summary ---
Date of Service December 05, 2023 Admission HPI Per Admitting Provider Gilma is a 63 yo F with a pmhx of SLE on chronic prednisone therapy, thrombocytopenia, rectal CA s/p hemicolectomy and colostomy creation, anxiety and hypothyroidism who presents to the ER today c/o severe right sided flank pain and does endorse gross hematuria 2 days prior to presentation. She has a rather complicated recent history of sepsis with bacteremia secondary to UTI and renal calculi due to Enterococcus faecalis. She reports that she just completed the course of antibiotics 2 days ago. She denies nausea, vomiting, fever or chills. Her primary complaint that drove her to seek evaluation today is her fl ank pain. In the ER, her wbc count is suppressed at 3.59 and platelet count is 102 which is at her baseline. Her renal function is preserved but her UA appears grossly infected. She underwent a CTAP w/ contrast that demonstrated severe right hydroureteronephrosis with persistent wall thickening and enhancement of the distal right ureter which may be an underlying stricture. There is also a 2mm nonobstructing distal R ureteral calculus noted. Incidentally, she is noted to have a 1.4 cm subpleural left lower lobe nodule that will require a 3 month follow up. She was treated with a dose of IV ceftriaxone and daptomycin and 1L of NSS. Urology has been contacted and plans to take to the OR today for cystoscopy and R retrograde pyelogram with stent placement. She was referred to hospital medicine team for admission. Principal Diagnosis sepsis 2/2 UTI, hydronephrosis Discharge Exam Gen: NAD, resting comfortably HEENT: NCAT, PERRL CV: RRR, no m/r/g, S1/S2 normal Resp: CTAB, symmetrical chest rise, breathing non-labored Abd: Soft, NT/ND, notable scars and bruising from past surgeries, ostomy clean and intact MSK: Full ROM, no gross deformities Skin: Warm, dry, pink, no rashes or lesions Neuro: AOx3, CN II-XII grossly intact Psych: Mood-affect congruent. Speech pace and content normal. Discharge Data Allergies Allergy/AdvReac Type Severity Reaction Status Date / Time moxifloxacin [From Avelox] Allergy Severe Rash Verified 12/03/23 13:07 Penicillins Allergy Severe Hives Verified 12/03/23 13:07 Sulfa (Sulfonamide Allergy Severe Brain/Head Verified 12/03/23 13:07 Antibiotics) pressure cefoxitin Allergy Unknown Unknown Verified 12/03/23 13:07 vancomycin Allergy Unknown Unknown Verified 12/03/23 13:07 acetaminophen [From Tylenol] AdvReac Unknown Fever Verified 12/03/23 13:07 Antihistamines - Alkylamine AdvReac "skin Verified 12/03/23 13:07 crawling" with antihistamines Consultations 12/03/23 11:37 ED Decision to Admit Stat 12/03/23 14:32 Consult Urology Routine Procedures Performed Operation Date: 12/03/23 09:50 Actual Procedures p Cystoscopy, Right Retrgrade Pyelogram with Stent Placement(Right) - Spenser Brunner MD Ordered Studies 12/03/23 FL retrograde includes kub Routine 12/03/23 10:12 CT abd pelvis IV con only Stat Hospital Course (1) UTI (urinary tract infection): (2) Hydronephrosis: (3) Sepsis: Van Lantigua is a 63yo F w h/o SLE managed w chronic steroids, thrombocytopenia, rectal cancer s/p hemicolectomy w colostomy, MALT lymphoma s/p chemo-rad, radiation cystitis, and nephrolithiasis c/b ureteral strictures. #UTI #Hydronephrosis - Currently POD #2 s/p cystoscopy, right retrograde pyelogram, & right ureteral stent placement - Tolerating the stent, voiding without issue, passing flatus, normal ambulation and oral intake - Afebrile, vitals stable, WBC 3.21, Cr 0.97 at time of discharge - Given IV rocephin 2000mg and IV daptomycin 250mg during stay - UCx grew Klebsiella, pansensitive (except macrobid & cipro) - Blood cx showed no growth after 48h - Discharged on Cefuroxime 500 mg po BID x 7d Note on medication allergies: penicillins caused full body rash back in childhood; sulfa drugs cause head and chest pressure; benadryl causes sensation of skin crawling; moxifloxacin caused an erythemetous rash along neck/chest but ciprofloxacin is well-tolerated; ceftin allergy is unlikely to be severe as she does not recall what happened and states it was a long time ago; similarly with vancomycin, she was unconscious in the ICU when it was given, informed later by her that she's allergic - Followed by urology; will discuss stent management at outpatient appt, 01/06, Dr. Bonilla #Sepsis - Source likely UTI - Initially met SIRS criteria w HR > 90 and WBC <4; vitals have since stabilized - IVF discontinued due to adequate oral intake - Given broad spectrum antibiotics (daptoymcin and ceftriaxone) during stay, based on prior cultures - Urine culture showing Klebsiella, Blood cultures showing no growth at 48h - Cefuroxime, as above Total Time Total Time Spent Total Time Spent (In Minutes): 25 minutes Discharge Plan Discharge Items Patient Disposition: Home - Self-Care Reason For Visit: SEPSIS, URETEROLITHIASIS, OBSTRUCTIVE HYDRONEPHROS Discharge Diagnosis: hydronephrosis 2/2 ureterolithiasis, sepsis 2/2 UTI Activity: Per Instructions section Non-emergency contact: Primary Care Provider and Specialist Call non-emergency contact if: you have any medication questions, your symptoms worsen, your pain is not controlled and your temperature is above 101 Follow-up/Referrals: Steve Bonilla DO [Physician] - 01/07/24 10:45 am Caitie Aden DO [Primary Care Provider] - Diet: Regular Addtl Attending Provider Instructions: You came to the hospital for lower back/flank pain that turned out to be hydronephrosis due to a stone in your ureter. You were also found to have a UTI and met criteria for sepsis, with your heart rate being elevated and labs showing a low number of white blood cells. You had a stent placed in your right ureter. The procedure went well, and you've been doing well and having no problems with urination since then. You were also treated with IV antibiotics, initially covering a broad spectrum of possible bacteria using Rocephin and Daptomycin. Your urine cultures grew bacteria (Klebsiella) that is sensitive to many different antibiotics, and your blood cultures had no growth at 48 hours. We are sending you home with an antibiotic that should treat the UTI without causing negative side effects. Take Cefuroxime 500 mg, twice a day, for 7 days If you have any issues with this medication, please call [phone] and ask to leave a message for Dr. Fernandez. Your medication list has been reviewed and reconciled upon discharge, and an updated list of all your medications is included with your hospital discharge paperwork. No changes were made, other than the short-term addition of the antibiotic. Follow-up appointments: Make a follow-up appointment with your PCP within the next week. It is very important that you follow up with them shortly after discharge from the hospital. You have an appointment with Dr. Bonilla on Jan.06 at 10:45am at the urology office at [facility]. You can discuss your plan for a 3-month stent placement at this appointment. Contact [facility] or your PCP if your pain worsens/isn't relieved with medications, you notice gross hematuria again, you run a high fever, or your stent dislodges. Call 911 or go to the ER if you experience any chest pain, abdominal pain, or shortness of breath that is sudden and severe. Thank you for allowing us to participate in your care. Addtl [employer] Provider Instructions: You are scheduled for follow-up in the urology clinic at [facility] with Dr. Bonilla on 01/07/2024 at 10:45 AM. Please call our office at [phone] with any questions, concerns or need to reschedule appointments for any reason. We are happy to assist you. While you have a ureteral stent in place: Some discomfort is normal. Certain movements may trigger pain or a feeling that you need to urinate. You may also feel mild soreness or pressure before or during urination. Your urine may be slightly pink or red. This is due to bleeding caused by minor irritation from the stent. This may happen on and off while you have the stent, it is not harmful and is to be expected. Drink plenty of fluids to help flush out your urinary tract. When to call [facility] at [phone]: Your urine contains heavy blood clots You are constantly leaking urine Fever of 101F or higher, chills, nausea, or vomiting Your pain is not relieved with medication The end of the stent comes out of your urethra Pending Studies at Discharge: No Stand-Alone Forms: [employer], Smoking Cessation Medications and DC Order Prescriptions: New cefuroxime axetil 500 mg tablet 500 mg PO BID 7 Days Qty: 14 0RF Continued clonazepam 1 mg tablet 1 mg PO TID levothyroxine 25 mcg tablet 25 mcg PO DAILYBB tamsulosin 0.4 mg capsule 0.4 mg PO DAILY prednisone 1 mg tablet 2 mg PO DAILY potassium citrate 10 mEq (1,080 mg) tablet extended release 30 meq PO DAILY docusate sodium [Colace] 100 mg Capsule 200 mg PO DAILY omeprazole 20 mg capsule,delayed release(DR/EC) 20 mg PO QAM oxycodone 5 mg tablet 5 mg PO Q4 PRN (Reason: Severe Pain (Scale Score 7-10)) Rx Instructions: Q 4-6 hours calcium carbonate-vitamin D3 [Calcium 600 + D(3)] 600 mg-10 mcg (400 unit) Tablet 1 tab PO DAILY naloxone 4 mg/actuation spray,non-aerosol 4 mg INTRANASAL UD Rx Instructions: Creede 1 spray into one nostril as directed for overdose, respiratory supression/slow infrequent breathing. Repeat in 3 minutes in the other nostril if no response. Call 911. carboxymethylcell-hypromellose 0.25-0.3 % Drops, Liquid Gel 1 drp OPHTHALMIC (EYE) BID carboxymethylcellulose sodium [TheraTears] 1 % Dropperette,Gel 1 drp OPHTHALMIC (EYE) BID cyanocobalamin (vitamin B-12) 1,000 mcg capsule 1,000 mcg PO DAILY Qty: 30 0RF phenazopyridine [Pyridium] 100 mg tablet 100 mg PO Q8H PRN (Reason: bladder spasms) Qty: 14 0RF Discharge Orders: Discharge Order (Routine); Ordered 12/05/23 Ordered By: Teo Guerrero/Other Patient Handouts: Cefuroxime Oral Tablet Admission Data Admit Date/Time: 12/03/23 12:41 Attending Provider: Chester Isabel Admit Provider: Dennis Dent Primary Care Provider: Caitie Aden Other Providers: Dennis Dent; Lexx Oreilly; Phyllis De Guzman; Steve Bonilla; Fatoumata Alaniz; Duyen Boyd; Pablo Proctor; Teresa Ayala; Chandra Phelps; Silvia Andrews; Spenser Brunner Other Interventions: Discharge Summary Assessment (RN) Last Done: 12/05/23 16:01 Supervising Physician Co-Signing Physician Notes I also saw the patient from brown portion of the clinical history of his examination. I agree with the impression and plan as noted in the resident documentation/discharge summary above. Upon our exam, the patient is seated in bed. She feels well. No new complaints. She is looking forward to discharge. Urology consultation reviewed. She already has outpatient appointment scheduled with urology. Will discharge home on cefuroxime 500 mg twice daily for 7 days. While patient does have a cephalosporin allergy listed (cefoxitin), she cannot recall the allergy. It is noted that she is tolerating Rocephin without difficulty. Discussed signs and symptoms for which to monitor. Follow-up reviewed. Resident Activity Tracking Resident Involvement: Resident Care Provided Care Provided: Adult [facility]
[2023-12-05 07:27] VITALS: RESP 18
[2023-12-05 07:51] LABS: Hematocrit (blood only) 31.5 % (37.0-47.0); Mean Corpuscular Hemoglobin 29.2 pg (25.0-34.0); Mean Corpuscular Hgb Conc 31.7 g/dL (32.0-36.0); Mean Corpuscular Volume 92.1 fL (80.0-100.0); Mean Platelet Volume 9.6 fL (9.4-12.4); Platelet Count 93 K/uL (130-400); RDW Coefficient of Variation 14.5 % (11.5-14.5); RDW Standard Deviation 48.9 fL (36.4-46.3); Red Blood Count 3.42 M/uL (4.20-5.40); White Blood Count 3.21 K/ul (4.8-10.8)
[2023-12-05 08:02] LABS: BUN Creatinine Ratio 16.5 (10-20); Calcium 8.7 mg/dl (8.6-10.3); Creatinine Clr Calc Pharmacy 61.7 ml/min; Potassium 3.6 mmol/L (3.5-5.1)
[2023-12-05 11:24] VITALS: TEMP 98.1
--- NOTE | 2023-12-05 11:26 | Urology Progress Note ---
Date of Service December 05, 2023 Assessment & Plan (1) UTI (urinary tract infection): (2) Hydronephrosis: Plan: - POD #2 s/p Cystoscopy, right retrograde pyelogram with radiographic interpretation, right ureteral stent placement - Overall feeling well and tolerating the stent with minimal bother - She is afebrile with stable vitals - Labs show a white count of 3.21 and normal renal function - Urine culture grew Klebsiella; Blood cultures prelim no growth x 24 hours - Voiding spontaneously, continue to monitor - No further urological intervention indicated - Will plan to maintain the right ureteral stent. Plan for outpatient follow-up as scheduled to discuss stent management. - Continue antibiotics per culture sensitivities - Continue supportive care, tamsulosin, and prn pain management - Urology will sign-off. Please call with any questions/concerns. Admission and Anticipated Discharge Date Admission Date: December 03, 2023 Subjective Pt seen at bedside this AM Awake and resting in bed on arrival No acute distress Overall feeling well No reported pain at present Tolerating the stent well Denies f/c/n/v Voiding without issue Review of Systems Constitutional: as per Subjective / HPI Genitourinary: as per Subjective / HPI Physical Exam Constitutional: no acute distress Respiratory: no respiratory distress and no labored breathing Musculoskeletal: Head/Neck/Chest: normocephalic Neurologic: moves all extremities and awake Psychiatric: A+Ox3, euthymic affect Results & Data Vital Signs (Past 12 Hours) Vital Signs Temp Pulse Pulse Resp BP BP Pulse Ox 12/05/23 07:26 36.5 C 59 L 18 107/67 100 12/05/23 07:17 67 12/05/23 03:46 36.6 C 70 16 114/63 97 12/04/23 23:48 61 12/04/23 23:31 36.6 C 75 18 124/72 98 O2 Del Method 12/05/23 07:26 Room Air 12/05/23 07:17 12/05/23 03:46 Room Air 12/04/23 23:48 12/04/23 23:31 Room Air PG Care Time/CCT Total # of Minutes Spent Total Time Spent with Patient: Total time spent is greater than 50% in coordination of care (as documented) at patient's floor/unit and/or counseling patient: Coding Level of Care Code 58849 SUB INP/OBS CARE 2/35MIN Diagnoses UTI (urinary tract infection) N30.00 Hematuria presence: without hematuria Urinary tract infection type: acute cystitis Hydronephrosis N13.30 Hydronephrosis type: unspecified (1) UTI (urinary tract infection) Hematuria presence: without hematuria Urinary tract infection type: acute cystitis Qualified Code(s): N30.00 - Acute cystitis without hematuria (2) Hydronephrosis Hydronephrosis type: unspecified Qualified Code(s): N13.30 - Unspecified hydronephrosis
[2023-12-05 16:03] VITALS: BP 114/63; PULSE 73; O2SAT 97
== END 2023-12-05 17:32 | disposition home or self-care (01) | DRG 854 ==
LOC: ED 09:26 → SUATTDRO 12:41 → OR 12:56 → 2N 12:56 → SUATTDRO 12:57 → 2N 12:57

== ENCOUNTER 2024-01-23 04:38 | Inpatient (IN) ==
[2024-01-23] MEDS: ONDANSETRON INJ 2 MG/ML 2 ML VIAL ONE (04:57)
[2024-01-23] MEDS: HYDROmorphone INJ 0.5 MG/0.5 ML SYR IV STA ×4 (05:06→08:06)
[2024-01-23 05:24] LABS: Basophils # (auto) 0.02 K/uL (0.00-0.20); Basophils % (auto) 0.5 %; Hematocrit (blood only) 37.4 % (37.0-47.0); Hemoglobin 12.5 g/dl (12.0-16.0); Immature Granulocytes # (auto) 0.01 K/uL (0.01-0.20); Immature Granulocytes % (auto) 0.2 %; Lymphocytes # (auto) 0.77 K/uL (1.20-3.40); Lymphocytes % (auto) 18.3 %; Mean Corpuscular Hgb Conc 33.4 g/dL (32.0-36.0); Mean Corpuscular Volume 89.9 fL (80.0-100.0); Mean Platelet Volume 9.5 fL (9.4-12.4); Monocytes # (auto) 0.39 K/uL (0.11-0.59); Monocytes % (auto) 9.3 %; Neutrophils # (auto) 3.01 K/uL (1.40-6.50); Neutrophils % (auto) 71.7 %; Platelet Count 111 K/uL (130-400); RDW Coefficient of Variation 14.8 % (11.5-14.5); RDW Standard Deviation 48.8 fL (36.4-46.3); Red Blood Count 4.16 M/uL (4.20-5.40)
[2024-01-23 05:30] LABS: Albumin Globulin Ratio 1.1 (0.9-2); Albumin Level 4.1 gm/dl (3.4-5.0); BUN Creatinine Ratio 24.1 (10-20); Bilirubin,Total 0.5 mg/dl (0.2-1.0); Calcium 9.7 mg/dl (8.6-10.3); Creatinine Clr Calc Pharmacy 70.4 ml/min; Globulin 3.8 gm/dl (2.5-4.0); Potassium 3.7 mmol/L (3.5-5.1); Total Protein 7.9 gm/dl (6.0-8.3)
[2024-01-23 05:36] LABS: Troponin I High Sensitivity 2.5 pg/ml (0-14)
[2024-01-23] MEDS: OPTIRAY 320 125ml IV ONE (05:53)
--- NOTE | 2024-01-23 06:01 | XRay Report ---
EXAM: XR chest 1V portable CLINICAL HISTORY: CHEST PAIN F TECHNIQUE: Radiograph of chest was acquired. COMPARISON: 13 November 2023. FINDINGS: A linear shadow is noted along the peripheral aspect of the right chest wall. No pulmonary markings are noted lateral to it. No pleural effusion is detected. The cardiomediastinal silhouette is within normal limits. No acute osseous abnormality. Rest of the findings are unchanged compared to the previous radiograph. IMPRESSION: 1. A linear shadow is noted along the peripheral aspect of the right chest wall. No pulmonary markings are noted lateral to it. Possibility of pneumothorax needs consideration. This was not seen in the previous radiograph. 2. Rest of the findings are unchanged compared to the previous study. Electronically signed by Stanford Ojeda 01-23-2024 06:01 AM
--- NOTE | 2024-01-23 06:23 | Emergency Department Note ---
Impression & Plan Right-sided chest pain admit to the [facility] ED Provider Note NAME: MARII BERNABE AGE: 63 SEX: Female INFORMANT: Patient ED PROVIDER(S): Cristy Burroughs DO CHIEF COMPLAINT: right-sided chest pain PLAN: Disposition: admit to the [facility] MEDICAL DECISION MAKING: this is a 63-year-old female patient who presents to the emergency department with right-sided chest pain that started at 2 AM. patient states the pain became so significant that she Vomited. patient describes having a history of previous episodes of pleurisy, pneumothorax and gallbladder issues which have all caused her right sided abdominal pain and chest pain. Patient has no reproducible abdominal discomfort or discomfort with palpation over the right chest wall but patient points to the chest as the location of her discomfort. Patient has an indwelling ureteral stent that remains in place. She denies any urinary symptoms. She denies any back pain. Laboratory studies revealed no leukocytosis or anemia. She does have thrombocytopenia which is normal for her. Glucose was 130. Renal function was normal. Urinalysis is pending. CT of the chest reveals no evidence of pneumothorax or PE. Patient is requiring multiple doses of IV Dilaudid just to maintain comfort for this patient. I discussed the case with the [facility] and they will evaluate for further inpatient care. Care/management discussed with: funeral sales manager and [facility] Triage Nursing notes: reviewed and agree With them. Vital Signs: reviewed and remarkable for no significant abnormalities Differential Diagnosis: pneumothorax, PE, herpes zoster, pleurisy, obstructive uropathy, cholecystitis Diagnostics, independently interpreted by me: ECG: normal sinus rhythm at a rate of [address] segment elevation or signs of ischemia. There is no ectopy. Cardiac Monitoring: Normal sinus rhythm at 69 Imaging studies: portable chest x-ray: No acute pulmonary infiltrates or consolidation as per my independent interpretation. CT scan of the chest: As per [facility] HPI: 63 year old Female arrives for evaluation of right-sided chest pain. Right-sided chest pain that started at 2 AM. patient states the pain became so significant that she Vomited. patient describes having a history of previous episodes of pleurisy, pneumothorax and gallbladder issues which have all caused her right sided abdominal pain and chest pain. PAST MEDICAL HISTORY: See Below, PAST SURGICAL HISTORY: See Below, SOCIAL HISTORY: See Below, HOME MEDICATIONS: See list ALLERGIES: see list VITALS: See Below PHYSICAL EXAMINATION: HEENT: Head - normocephalic and atraumatic. Pupils are equal, round, and reactive to light. Extraocular eye muscles are intact, and sclera are anicteric. Nose - moist nasal mucosa without discharge. Mouth - moist buccal mucosa. Oropharynx is nonerythematous and there is no tonsillar exudate or edema noted. Neck: Supple; no JVD, nuchal rigidity, cervical lymphadenopathy, or auscultated bruits. Heart: Regular rate and rhythm. There is a normal S1 and S2 with no murmurs, clicks, or gallops appreciated. Lungs: Clear to auscultation bilaterally with no wheezes, rales, or rhonchi. Abdomen: Soft, completely nontender, nondistended, with good bowel sounds. There are no palpable pulsatile masses or hepatosplenomegaly. There is no guarding, rigidity, or rebound noted. Extremities: No evidence of cyanosis, clubbing, or edema. There are easily palpable peripheral pulses. Skin: warm and dry with good turgor and no rashes. Emergency Department treatment: desk monitor, IV Zofran, IV Dilaudid, IV Dilaudid, IV Dilaudid, IV Zofran emergency department course: the patient was evaluated in room B-9. A complete history and physical was performed. An IV lock was initiated and labs were drawn as above. A twelve-lead EKG was obtained as described above. An order was placed for continuous cardiac monitoring. The patient was in a normal sinus rhythm at a rate of 69. The patient was medicated with IV Zofran and IV Dilaudid. Forward chest x-ray was performed to rule out the possibility of a spontaneous pneumothorax. This was negative. She went for CT scan of the chest to rule out a PE. She received an additional dose of IV Dilaudid for her pain. Patient's nausea returned and she was given additional dose of IV Zofran. Patient continues to require IV analgesia to control the discomfort in the right side of her chest. I discussed the case with the [facility] Hospitalist and they will evaluate for further inpatient care. Past Med/Surg History Problem List (Updated 01/23/24 @ 17:00 by Cintia Villegas MD) Right-sided chest pain (Acute) Sjogrens syndrome LIP (lymphoid interstitial pneumonitis) ILD (interstitial lung disease) Multiple idiopathic pulmonary cysts Right-sided chest pain Nausea and vomiting Anxiety Chest pain Enterococcal bacteremia Colostomy status SLE (systemic lupus erythematosus) Secondary thrombocytopenia Pancytopenia History of creation of ostomy (Acute) Medical History (Updated 01/24/24 @ 06:46 by Cristy Burroughs DO) UTI (urinary tract infection) Sepsis Ureterolithiasis Hydronephrosis Ureteral calculi Renal colic on right side Nephrolithiasis Raynaud's disease Medullary sponge kidney Panic disorder Hypothyroidism Anal cancer Surgical History (Updated 01/23/24 @ 17:00 by Cintia Villegas MD) H/O breast biopsy H/O dilation and curettage S/P tonsillectomy and adenoidectomy H/O wrist surgery H/O ventral hernia repair H/O colectomy Family History (Updated 01/23/24 @ 17:00 by Cintia Villegas MD) Other Family history non-contributory Social History Smoking Status: Never smoker Second Hand Exposure: Yes; Do You Dip or Chew Tobacco: No; Hx Alcohol Use: No Hx Substance Use: No Preferred Language: Ukrainian Communication Ability: Effective Guard Immigration Required: No Beliefs That Will Affect Care: None Current Living Situation: Spouse Other Information That Helps Us Care for You: No Feels Safe at Home: Yes Safety Concerns: Feels Safe At This Time Assistive Devices: None Allergies Allergies Allergy/AdvReac Type Severity Reaction Status Date / Time moxifloxacin [From Avelox] Allergy Severe Rash Verified 12/03/23 13:07 Penicillins Allergy Severe Hives Verified 12/03/23 13:07 Sulfa (Sulfonamide Allergy Severe Brain/Head Verified 12/03/23 13:07 Antibiotics) pressure cefoxitin Allergy Unknown Unknown Verified 12/03/23 13:07 vancomycin Allergy Unknown Unknown Verified 12/03/23 13:07 acetaminophen [From Tylenol] AdvReac Unknown Fever Verified 12/03/23 13:07 Antihistamines - Alkylamine AdvReac "skin Verified 12/03/23 13:07 crawling" with antihistamines Home Meds Home Medications Medication Instructions Recorded Confirmed calcium 600 mg (as 1 tab PO DAILY 10/26/23 01/23/24 carbonate)-vitamin D3 10 mcg (400 unit) tablet (Calcium 600 + D(3)) carboxymethylcellulose 1 drp ophthalmic (eye) BID 10/26/23 01/23/24 sod-hypromell 0.25 %-0.3 % eye liquid gel drops carboxymethylcellulose sodium 1 % 1 drp ophthalmic (eye) BID 10/26/23 01/23/24 eye gel in a dropperette (TheraTears) clonazepam 1 mg tablet 1 mg PO TID Anxiety/Insomnia 10/26/23 01/23/24 docusate sodium 100 mg capsule 200 mg PO DAILY 10/26/23 01/23/24 (Colace) levothyroxine 25 mcg tablet 25 mcg PO DAILYBB 10/26/23 01/23/24 naloxone 4 mg/actuation nasal spray 4 mg intranasal UD PRN Other 10/26/23 01/23/24 omeprazole 20 mg capsule,delayed 20 mg PO QAM 10/26/23 01/23/24 release oxycodone 5 mg tablet 5 mg PO Q4 PRN Severe Pain (Scale 10/26/23 01/23/24 Score 7-10) prednisone 1 mg tablet 2 mg PO DAILY 10/26/23 01/23/24 tamsulosin 0.4 mg capsule 0.4 mg PO DAILY PRN Other 10/26/23 01/23/24 gabapentin 300 mg capsule 300 mg PO UD 01/23/24 01/23/24 potassium citrate-citric acid 5 ml PO DAILY 01/23/24 01/23/24 1,100 mg-334 mg/5 mL oral solution prednisolone acetate 1 % eye 1 drp ophthalmic (eye) UD 01/23/24 01/23/24 drops,suspension Previous Rx's Medication Instructions Recorded cyanocobalamin (vitamin B-12) 1,000 mcg PO DAILY #30 caps 11/18/23 1,000 mcg capsule phenazopyridine 100 mg tablet 100 mg PO Q8H PRN bladder spasms 11/18/23 (Pyridium) #14 tabs Results & Data (ED) Vital Signs Vital Signs - 24 hr 01/23/24 06:36 01/23/24 07:30 01/23/24 08:00 Pulse Rate 69 Pulse Rate [Apical] 67 67 Pulse Rate from SpO2 Sensor 71 Pulse Rhythm [Apical] Regular Regular Pulse Strength [Apical] Normal Normal Respiratory Rate 13 18 14 Respiratory Effort / Characteristics Non-Labored Spontaneous Non-Labored Spontaneous Respiratory Depth Normal Normal Respiratory Pattern Regular Regular Blood Pressure [Left Arm] 146/76 H 139/77 Blood Pressure Mean [Left Arm] 99 97 Blood Pressure Position [Left Arm] Sitting Sitting Pulse Oximetry 96 98 97 Oxygen Delivery Method Room Air Room Air Room Air Laboratory Data 01/23/24 04:57 01/23/24 04:57 Lab Results 01/23/24 01/23/24 Range/Units 04:57 07:58 WBC 4.20 L (4.8-10.8) K/ul RBC 4.16 L (4.20-5.40) M/uL Hgb 12.5 (12.0-16.0) g/dl Hct 37.4 (37.0-47.0) % MCV 89.9 (80.0-100.0) fL MCH 30.0 (25.0-34.0) pg MCHC 33.4 (32.0-36.0) g/dL RDW Std Deviation 48.8 H (36.4-46.3) fL RDW Coeff of Bertha 14.8 H (11.5-14.5) % Plt Count 111 L (130-400) K/uL MPV 9.5 (9.4-12.4) fL Immature Gran % (Auto) 0.2 % Neut % (Auto) 71.7 % Lymph % (Auto) 18.3 % [place] % (Auto) 9.3 % Eos % (Auto) 0.0 % Baso % (Auto) 0.5 % Neut # (Auto) 3.01 (1.40-6.50) K/uL Lymph # (Auto) 0.77 L (1.20-3.40) K/uL Erath # (Auto) 0.39 (0.11-0.59) K/uL Eos # (Auto) 0.00 (0.00-0.50) K/uL Baso # (Auto) 0.02 (0.00-0.20) K/uL Immature Gran # (Auto) 0.01 (0.01-0.20) K/uL Sodium 138 (136-145) mmol/L Potassium 3.7 (3.5-5.1) mmol/L Chloride 105 (98-107) mmol/L Carbon Dioxide 27 (21-32) mmol/L Anion Gap 6 (3-11) BUN 20 (6-23) mg/dl Creatinine 0.83 (0.6-1.2) mg/dl Est Cr Clr Drug Dosing 70.4 ml/min eGFR 79.66 BUN/Creatinine Ratio 24.1 H (10-20) Glucose 130 H (70-99(Fasting)) mg/dl Calcium 9.7 (8.6-10.3) mg/dl Total Bilirubin 0.5 (0.2-1.0) mg/dl AST 23 (13-39) U/L ALT 21 (7-52) U/L Alkaline Phosphatase 69 (34-104) U/L Troponin I High Sens 2.5 (0-14) pg/ml Total Protein 7.9 (6.0-8.3) gm/dl Albumin 4.1 (3.4-5.0) gm/dl Globulin 3.8 (2.5-4.0) gm/dl Albumin/Globulin Ratio 1.1 (0.9-2) Lipase 38 (11-82) U/L Adenovirus (PCR) Not Detected (NotDetected) B. pertussis DNA (PCR) Not Detected (NotDetected) B.parapertussis DNA PCR Not Detected (NotDetected) C. pneumoniae DNA (PCR) Not Detected (NotDetected) Coronavirus OC43 (PCR) Not Detected (NotDetected) Coronavirus HKU1 (PCR) Not Detected (NotDetected) Coronavirus 229E (PCR) Not Detected (NotDetected) SARS-CoV-2 (PCR) Not Detected (NotDetected) Coronavirus NL63 (PCR) Not Detected (NotDetected) Human Metapneumovir PCR Not Detected (NotDetected) Influenza Type A (PCR) Not Detected (NotDetected) Influenza Type B (PCR) Not Detected (NotDetected) M. pneumoniae (PCR) Not Detected (NotDetected) Parainfluenza 1 (PCR) Not Detected (NotDetected) Parainfluenza 2 (PCR) Not Detected (NotDetected) Parainfluenza 3 (PCR) Not Detected (NotDetected) Parainfluenza 4 (PCR) Not Detected (NotDetected) RSV (PCR) Not Detected (NotDetected) Entero/Rhino (PCR) Not Detected (NotDetected) Administered Medications Artificial Tears (Artificial Tears) 1 drops OP BID SHAYY Stop: 02/22/24 11:29 Last Admin: 01/23/24 20:56 Dose: Not Given Documented By: Admin: 01/23/24 11:58 Dose: 1 drops Documented By: ARJUN Clonazepam (Clonazepam 1 Mg Tab) 1 mg PO TID SHAYY Stop: 02/22/24 13:59 Last Admin: 01/23/24 20:55 Dose: 1 mg Documented By: Admin: 01/23/24 15:04 Dose: 1 mg Documented By: NOREEN Docusate Sodium (Docusate Sodium 100 Mg Cap) 200 mg PO DAILY [facility] Stop: 02/22/24 11:11 Last Admin: 01/23/24 11:58 Dose: 200 mg Documented By: ARJUN Hydromorphone HCl (Hydromorphone Inj 0.5 Mg/0.5 Ml Syr) 0.5 mg IV Q2H PRN PRN Reason: Mod/Severe Pain (6-10) on NRS Stop: 02/06/24 11:11 Last Admin: 01/24/24 03:18 Dose: 0.5 mg Documented By: Admin: 01/23/24 15:03 Dose: 0.5 mg Documented By: Admin: 01/23/24 11:57 Dose: 0.5 mg Documented By: ARJUN Acetaminophen (Ofirmev) 1,000 mg in 100 mls @ 400 mls/hr IV Q8H PRN PRN Reason: Fever/Mild Pain (Pain 1-5) Stop: 01/26/24 11:11 Last Admin: 01/24/24 06:12 Dose: 400 mls/hr Documented By: Infusion: 01/23/24 18:39 Dose: Infused Documented By: Admin: 01/23/24 16:56 Dose: 400 mls/hr Documented By: NOREEN Pantoprazole Sodium (Protonix) 40 mg in 10 mls @ 5 mls/min IV BID SHAYY Stop: 02/22/24 20:59 Last Admin: 01/23/24 21:24 Dose: 5 mls/min Documented By: SOBIA Ceftriaxone Sodium (Rocephin) 1,000 mg in 50 mls @ 100 mls/hr IV Q24H [facility] Stop: 02/02/24 19:59 Last Infusion: 01/23/24 21:33 Dose: Infused Documented By: Admin: 01/23/24 20:38 Dose: 100 mls/hr Documented By: SOBIA Daptomycin 400 mg/ Syringe 8 mls @ 4 mls/min IV Q24H [facility]; Protocol Stop: 02/02/24 19:59 Last Admin: 01/23/24 20:38 Dose: 4 mls/min Documented By: SOBIA Levothyroxine Sodium (Levothyroxine Sodium 25 Mcg Tablet) 25 mcg PO DAILYBB SHAYY Stop: 02/23/24 06:29 Last Admin: 01/24/24 06:10 Dose: 25 mcg Documented By: SOBIA Discontinued Medications Hydromorphone HCl (Hydromorphone Inj 0.5 Mg/0.5 Ml Syr) 0.5 mg IV NOW STA Stop: 01/23/24 05:04 Last Admin: 01/23/24 05:06 Dose: 0.5 mg Documented By: Hydromorphone HCl (Hydromorphone Inj 0.5 Mg/0.5 Ml Syr) 0.5 mg IV NOW STA Stop: 01/23/24 05:20 Last Admin: 01/23/24 05:25 Dose: 0.5 mg Documented By: Hydromorphone HCl (Hydromorphone Inj 0.5 Mg/0.5 Ml Syr) 0.5 mg IV NOW STA Stop: 01/23/24 06:11 Last Admin: 01/23/24 06:25 Dose: 0.5 mg Documented By: Hydromorphone HCl (Hydromorphone Inj 0.5 Mg/0.5 Ml Syr) 0.5 mg IV NOW STA Stop: 01/23/24 07:58 Last Admin: 01/23/24 08:06 Dose: 0.5 mg Documented By: Pantoprazole Sodium (Protonix) 40 mg in 10 mls @ 5 mls/min IV NOW ONE Stop: 01/23/24 09:08 Last Admin: 01/23/24 09:36 Dose: 5 mls/min Documented By: Ioversol (Optiray 320 125ml) 116 ml IV ONCE ONE Stop: 01/23/24 05:51 Last Admin: 01/23/24 05:53 Dose: 116 ml Documented By: ADDIS Methylprednisolone (Methylprednisolone 125 Mg/2 Ml Vial) 40 mg IV NOW STA Stop: 01/23/24 09:38 Last Admin: 01/23/24 11:05 Dose: 40 mg Documented By: MICHELE Ondansetron HCl (Ondansetron Inj 2 Mg/Ml 2 Ml Vial) Confirm Administered Dose 4 mg .ROUTE .STK-MED ONE Stop: 01/23/24 04:57 Last Admin: 01/23/24 04:57 Dose: 4 mg Documented By: KMF Ondansetron HCl (Ondansetron Inj 2 Mg/Ml 2 Ml Vial) 4 mg IV NOW STA Stop: 01/23/24 07:58 Last Admin: 01/23/24 08:07 Dose: 4 mg Documented By: MSG Imaging Data Radiologist's Impression: Chest X-Ray 01/23/24 05:01 EXAM: XR chest 1V portable CLINICAL HISTORY: CHEST PAIN F TECHNIQUE: Radiograph of chest was acquired. COMPARISON: 13 November 2023. FINDINGS: A linear shadow is noted along the peripheral aspect of the right chest wall. No pulmonary markings are noted lateral to it. No pleural effusion is detected. The cardiomediastinal silhouette is within normal limits. No acute osseous abnormality. Rest of the findings are unchanged compared to the previous radiograph. IMPRESSION: 1. A linear shadow is noted along the peripheral aspect of the right chest wall. No pulmonary markings are noted lateral to it. Possibility of pneumothorax needs consideration. This was not seen in the previous radiograph. 2. Rest of the findings are unchanged compared to the previous study. Electronically signed by Stanford Ojeda 01-23-2024 06:01 AM Discharge Plan Visit Data Chief Complaint: Chest Pain Stated Complaint: R SIDE CHEST PAIN, VOMITING ED Provider: Cristy Burroughs Discharge Problem: Right-sided chest pain Patient Disposition: Admitted As Inpatient Discharge Instructions Interventions: ED Discharge Assessment Last Done: 01/23/24 11:13
--- NOTE | 2024-01-23 07:36 | CT Scan Report ---
EXAM: CT angio chest PE protocol CLINICAL HISTORY: PE 116 cc opti 320 TECHNIQUE: Contiguous axial images were obtained from the neck base through the upper abdomen following intravenous administration of iodinated contrast material. Angiographic images were processed, 3D MIP images were acquired for interpretation. If IV contrast material had not been administered, the likelihood of detecting abnormalities relevant to the patient's condition would have been substantially decreased. Coronal and sagittal 3-D MIPs were likewise performed and indicated to increase the sensitivity of detectin diffuse clinically relevant pathology. CT scan was performed according to ALARA (as low as reasonable achievable). COMPARISON: None. FINDINGS: Adequate contrast bolus without evidence of pulmonary embolism. The central airways are patent. Fibrocalcific changes are seen in apical segments of both upper lobes. Fibrobronchiectatic changes with surrounding ground glass density and few tiny calcific foci are seen in the posterobasal segment of left lower lobe. Fibroatelectatic bands are seen in bilateral lower lobes. Soft tissue nodule of size 12mm is noted in the anteromedial basal segment of left lower lobe. Few thin walled cavities with surrounding ground glass opacities seen in posterior basal and anteromedial basal segment of left lower lobe. Few centrilobular ground glass opacity nodules in tree in bud pattern seen in medial segment of middle lobe and medial basal segment of right lower lobe. Multiple cysts of varying sizes are seen in both the lungs. No pleural effusion or pneumothorax is seen. The heart, aorta, and pulmonary arteries are of normal size and configuration. There are no appreciable coronary artery and aortic atherosclerotic calcifications. No pericardial effusion is identified. The thyroid is unremarkable. No mediastinal, hilar, or axillary lymphadenopathy is noted. No suspicious lytic or sclerotic osseous lesions are identified. IMPRESSION: 1. No evidence of pulmonary embolism. 2. Few thin walled cavities with surrounding ground glass opacities in posterior basal and anteromedial basal segment of left lower lobe and few centrilobular ground glass opacity nodules in tree in bud pattern in medial segment of middle lobe and medial basal segment of right lower lobe, suggestive of infective etiology. 3. Fibrocalcific, fibrobronchiectatic and fibroatelectatic changes in bilateral lungs as described are likely the sequelae of prior insult. 4. Multiple thin-walled cysts of varying sizes in both the lungs. Electronically signed by Stanford Ojeda 01-23-2024 07:35 AM
[2024-01-23] MEDS: ONDANSETRON INJ 2 MG/ML 2 ML VIAL IV STA (08:07)
--- NOTE | 2024-01-23 08:20 | History & Physical Report ---
Date of Service January 23, 2024 Assessment & Plan (1) Right-sided chest pain: Plan: Acute onset of right-sided chest pain that woke her from sleep at 2 AM on the morning of 01/22 Troponin WNL on arrival, repeat pending No leukocytosis; afebrile BioFire negative PCT, CRP, and ESR ordered, pending Chest CTA without pulmonary embolism; groundglass opacities noted in the RLL as well as cysts bilaterally Unclear etiology on arrival, but suspect right lung involvement based on CTA imaging (?cyst/bleb involvement) Follows w/ [facility] (Dr. Jimenez) for her pulmonary nodules that developed following chemo Pulmonology consult appreciated Lower suspicion for cardiac etiology at this time; DDx includes pleurisy, costochondritis, PNA, and GERD (among other etiologies) Patient reports she is unable to take NSAIDs due to her kidneys Start Solu-Medrol 40 mg IV daily in case of pleurisy IV acetaminophen and Dilaudid as needed for breakthrough pain Continuous telemetry monitoring Consult PULM for further opinion Check CT abd/pel for right lower chest pain, assess right ureteral stent, check UA (2) Nausea and vomiting: Plan: Thought to be secondary to her chest pain IV antiemetics as needed Omeprazole 20 mg p.o. daily --> Protonix 40 mg IV daily checking CT abd/pel (3) SLE (systemic lupus erythematosus): Plan: and also with Sjogren's On chronic prednisone therapy; 2 mg daily Hold prednisone for now IV Solu-Medrol (as above) (4) Colostomy status: Plan: Colostomy care QS (5) Anxiety: Plan: Continue clonazepam TID (6) Secondary thrombocytopenia: Plan: Platelets 111 on arrival, with chronic pancytopenia with h/o splenomegaly and MALT lymphoma previous B12 level low normal and was on replacement check B12 level in AM check CT abd/pel for right lower chest pain and will assess spleen as well Plan Hypothyroidism: TSH recently 0.8, continue home LT4 Anxiety-continue home clonazepam H/o kidney stones, ureteral stricture-checking TC abd/pel, UA as above continue home potassium citrate once nausea improved Disposition: Admit to MedSurg telemetry Full code Clear liquid diet in the setting of vomiting and advance as tolerated VTE PPx: SCDs; will defer chemical DVT PPx in the setting of pancytopenia/secondary thrombocytopenia for now History of Present Illness Chief Complaint: Chest pain Primary Care Provider: Caitie Aden DO Dillard is a pleasant 63yo female with PMH of anal cancer, colostomy status, SLE, Sjogren's syndrome, recurrent kidney stones, medullary sponge kidney, enter ococcal bacteremia, and secondary thrombocytopenia. She presented on the morning of 01/22 for acute onset of right-sided chest pain that woke her from sleep around 2 AM. The chest pain was so significant that she vomited twice at home, and multiple times in the ED. She rates the pain 10/10 at worst, and 4/10 after receiving Dilaudid 0.5 mg IV x 4 in the ED. She characterizes the pain as a constant "dull, pressure-like" pain that is worse around her sternum and under her right breast. She initially thought it was in her "right lung". No radiation around the right flank. No radiation to the shoulders, jaw, or left chest wall. The pain is not worse with movements or twisting her upper body. Non-reproducible on palpation. Not worse with deep breaths. No alleviating/exacerbating factors identified other than Dilaudid. Patient does have a history of kidney stones on the right side, but reports this feels different than past episodes of kidney stones. No personal PMH of DE, DVT/PE, DM, HTN, HLD, costochondritis, or PVD. However, she does have a significant family history of heart issues: Her sister at 48 years old, from a suspected heart issue (autopsy came back with nothing definitive, but heart attack was in the differential; patient was also sick at the time). Patient's older sister has a pacemaker. Patient's cousin had a heart attack at 47 years old. She denies any chest pain with exertion, or chest pain this past week. In regard to pulmonary history, patient reports he had a pneumothorax on the left side 4 years ago requiring a chest tube. She has also had pleurisy x 2 on the left side (never on the right). She reports her pain today does not feel like her past episodes of pleurisy. No PMH of asthma, COPD, or sarcoidosis. She does follow with [facility] (Dr. Jimenez) for her lung nodules that developed after her chemotherapy. Additionally, she does have a history of GERD, and reports that her esophagus feels inflamed at this time, but reports this could be due to the vomiting. She denies any recent falls or injuries to the chest wall. She has been around her who has had a cough/cold-like symptoms x 1 month, but she denies any cold-like symptoms. No prior experiences of chest pain like this episode. Patient did not take any of her regular morning medicines today. Only new medication was that she was started on gabapentin 3 nights ago for ongoing left abdominal pain; she has had some mesh put in for history of abdominal surgeries (does not have much "stomach muscle" left). Patient has been told in the past she is unable to take NSAIDs due to her kidneys. She denies smoking, tobacco use, recent alcohol use. Patient is mildly hypertensive at 146/76 at time of admission; vitals otherwise stable. ED Course: Dilaudid 0.5mg IV x 4 Zofran 4 mg IV x 2 ROS: Patient endorses acute onset of chest pain at rest, vomiting x 4 (which patient attributes to pain), sore throat from vomiting, burning with urination (intermittent), dysuria, Patient denies fever, chills, night-sweats, dizziness, lightheadedness, chest pain in the past, rashes or bruising on the chest wall/flanks, tick bites, chest palpitations, pleuritic CP, SOB, cough, hemoptysis, abdominal pain, diarrhea, change in urinary/bowel habits, or numbness/tingling in the arms. Allergies Allergy/AdvReac Type Severity Reaction Status Date / Time moxifloxacin [From Avelox] Allergy Severe Rash Verified 12/03/23 13:07 Penicillins Allergy Severe Hives Verified 12/03/23 13:07 Sulfa (Sulfonamide Allergy Severe Brain/Head Verified 12/03/23 13:07 Antibiotics) pressure cefoxitin Allergy Unknown Unknown Verified 12/03/23 13:07 vancomycin Allergy Unknown Unknown Verified 12/03/23 13:07 acetaminophen [From Tylenol] AdvReac Unknown Fever Verified 12/03/23 13:07 Antihistamines - Alkylamine AdvReac "skin Verified 12/03/23 13:07 crawling" with antihistamines Home Medications Medication Instructions Recorded Confirmed Type calcium 600 mg (as 1 tab PO DAILY 10/26/23 01/23/24 History carbonate)-vitamin D3 10 mcg (400 unit) tablet (Calcium 600 + D(3)) carboxymethylcellulose 1 drp ophthalmic (eye) BID 10/26/23 01/23/24 History sod-hypromell 0.25 %-0.3 % eye liquid gel drops carboxymethylcellulose sodium 1 % 1 drp ophthalmic (eye) BID 10/26/23 01/23/24 History eye gel in a dropperette (TheraTears) clonazepam 1 mg tablet 1 mg PO TID Anxiety/Insomnia 10/26/23 01/23/24 History docusate sodium 100 mg capsule 200 mg PO DAILY 10/26/23 01/23/24 History (Colace) levothyroxine 25 mcg tablet 25 mcg PO DAILYBB 10/26/23 01/23/24 History naloxone 4 mg/actuation nasal spray 4 mg intranasal UD PRN Other 10/26/23 01/23/24 History omeprazole 20 mg capsule,delayed 20 mg PO QAM 10/26/23 01/23/24 History release oxycodone 5 mg tablet 5 mg PO Q4 PRN Severe Pain (Scale 10/26/23 01/23/24 History Score 7-10) prednisone 1 mg tablet 2 mg PO DAILY 10/26/23 01/23/24 History tamsulosin 0.4 mg capsule 0.4 mg PO DAILY PRN Other 10/26/23 01/23/24 History cyanocobalamin (vitamin B-12) 1,000 mcg PO DAILY #30 caps 11/18/23 01/23/24 Rx 1,000 mcg capsule phenazopyridine 100 mg tablet 100 mg PO Q8H PRN bladder spasms 11/18/23 01/23/24 Rx (Pyridium) #14 tabs gabapentin 300 mg capsule 300 mg PO UD 01/23/24 01/23/24 History potassium citrate-citric acid 5 ml PO DAILY 01/23/24 01/23/24 History 1,100 mg-334 mg/5 mL oral solution prednisolone acetate 1 % eye 1 drp ophthalmic (eye) UD 01/23/24 01/23/24 History drops,suspension Past Med/Surg History Problem List (Updated 01/23/24 @ 17:00 by Cintia Villegas MD) Sjogrens syndrome LIP (lymphoid interstitial pneumonitis) ILD (interstitial lung disease) Multiple idiopathic pulmonary cysts Right-sided chest pain Nausea and vomiting Anxiety Chest pain Enterococcal bacteremia Colostomy status SLE (systemic lupus erythematosus) Secondary thrombocytopenia Pancytopenia History of creation of ostomy (Acute) Medical History (Updated 01/23/24 @ 15:20 by Alexis Rollins MD, [facility]) UTI (urinary tract infection) Sepsis Ureterolithiasis Hydronephrosis Ureteral calculi Renal colic on right side Nephrolithiasis Raynaud's disease Medullary sponge kidney Panic disorder Hypothyroidism Anal cancer Surgical History (Updated 01/23/24 @ 17:00 by Cintia Villegas MD) H/O breast biopsy H/O dilation and curettage S/P tonsillectomy and adenoidectomy H/O wrist surgery H/O ventral hernia repair H/O colectomy Family History (Updated 01/23/24 @ 17:00 by Cintia Villegas MD) Other Family history non-contributory Social History Smoking Status: Never smoker Second Hand Exposure: Yes; Do You Dip or Chew Tobacco: No; Hx Alcohol Use: No Hx Substance Use: No Preferred Language: Cymro Communication Ability: Effective 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 Required: No Beliefs That Will Affect Care: None Current Living Situation: Spouse Other Information That Helps Us Care for You: No Feels Safe at Home: Yes Safety Concerns: Feels Safe At This Time Assistive Devices: None Review of Systems Review of Systems: See HPI above Physical Exam Physical Exam: General: no acute distress at present; pleasant affect; at bedside; non- toxic appearing; thin; cooperative; SpO2 90% on RA HEENT: normocephalic, atraumatic; no scleral icterus; PERRLA; vision and hearing grossly intact Neck: supple; trachea midline Skin: warm, dry without signs of tenting; no cyanosis; no rashes, bruising, lesions, or erythema noted CV: chest wall NTP; in particular, sternum and right flank under the breasts are nontender to palpation; no rashes appreciated on the chest wall, flanks, or back; RRR; S1/S2 normal; no murmurs/rubs/gallops; pulses intact and symmetric at radial, DP, and PT Lungs: no acute respiratory distress; symmetrical chest wall expansion; clear breath sounds across all lung sanchez w/o adventitious sounds; no wheezing ABD: Soft, NTP; LLQ colostomy in place without signs of erythema or infection; BS present; no rebound/guarding; no distention MSK: no tics or fasciculations; no edema noted in the LEs b/l, nonerythematous Neuro: A&Ox3; normal mood and affect; fluent speech; no focal deficits; sensation grossly intact in the LEs b/l Results & Data Results & Data Vital Signs (Past 12 Hours) Vital Signs Temp Pulse Pulse Resp BP BP Pulse Ox 01/23/24 07:30 67 18 146/76 H 98 01/23/24 06:36 69 13 96 01/23/24 06:30 69 14 140/77 99 01/23/24 06:30 140/77 01/23/24 06:21 67 13 97 01/23/24 06:00 134/73 01/23/24 05:42 69 15 01/23/24 05:39 72 14 01/23/24 05:35 73 01/23/24 05:22 68 18 91 01/23/24 04:51 62 18 97 01/23/24 04:51 94 01/23/24 04:40 36.8 C 81 18 136/73 99 O2 Del Method 01/23/24 07:30 Room Air 01/23/24 06:36 Room Air 01/23/24 06:30 Room Air 01/23/24 06:30 01/23/24 06:21 Room Air 01/23/24 06:00 01/23/24 05:42 01/23/24 05:39 01/23/24 05:35 01/23/24 05:22 Room Air 01/23/24 04:51 Room Air 01/23/24 04:51 Room Air 01/23/24 04:40 Room Air Laboratory Results Abnormal lab results 01/23/24 Range/Units 04:57 WBC 4.20 L (4.8-10.8) K/ul RBC 4.16 L (4.20-5.40) M/uL RDW Std Deviation 48.8 H (36.4-46.3) fL RDW Coeff of Bertha 14.8 H (11.5-14.5) % Plt Count 111 L (130-400) K/uL Lymph # (Auto) 0.77 L (1.20-3.40) K/uL BUN/Creatinine Ratio 24.1 H (10-20) Glucose 130 H (70-99(Fasting)) mg/dl Diagnostic Findings Chest X-Ray 01/23/24 05:01 EXAM: XR chest 1V portable CLINICAL HISTORY: CHEST PAIN JMF TECHNIQUE: Radiograph of chest was acquired. COMPARISON: 13 November 2023. FINDINGS: A linear shadow is noted along the peripheral aspect of the right chest wall. No pulmonary markings are noted lateral to it. No pleural effusion is detected. The cardiomediastinal silhouette is within normal limits. No acute osseous abnormality. Rest of the findings are unchanged compared to the previous radiograph. IMPRESSION: 1. A linear shadow is noted along the peripheral aspect of the right chest wall. No pulmonary markings are noted lateral to it. Possibility of pneumothorax needs consideration. This was not seen in the previous radiograph. 2. Rest of the findings are unchanged compared to the previous study. Electronically signed by Stanford Ojeda 01-23-2024 06:01 AM Chest CTA 01/23/24 05:04 EXAM: CT angio chest PE protocol CLINICAL HISTORY: PE 116 cc opti 320 TECHNIQUE: Contiguous axial images were obtained from the neck base through the upper abdomen following intravenous administration of iodinated contrast material. Angiographic images were processed, 3D MIP images were acquired for interpretation. If IV contrast material had not been administered, the likelihood of detecting abnormalities relevant to the patient's condition would have been substantially decreased. Coronal and sagittal 3-D MIPs were likewise performed and indicated to increase the sensitivity of detectin diffuse clinically relevant pathology. CT scan was performed according to ALARA (as low as reasonable achievable). COMPARISON: None. FINDINGS: Adequate contrast bolus without evidence of pulmonary embolism. The central airways are patent. Fibrocalcific changes are seen in apical segments of both upper lobes. Fibrobronchiectatic changes with surrounding ground glass density and few tiny calcific foci are seen in the posterobasal segment of left lower lobe. Fibroatelectatic bands are seen in bilateral lower lobes. Soft tissue nodule of size 12mm is noted in the anteromedial basal segment of left lower lobe. Few thin walled cavities with surrounding ground glass opacities seen in posterior basal and anteromedial basal segment of left lower lobe. Few centrilobular ground glass opacity nodules in tree in bud pattern seen in medial segment of middle lobe and medial basal segment of right lower lobe. Multiple cysts of varying sizes are seen in both the lungs. No pleural effusion or pneumothorax is seen. The heart, aorta, and pulmonary arteries are of normal size and configuration. There are no appreciable coronary artery and aortic atherosclerotic calcifications. No pericardial effusion is identified. The thyroid is unremarkable. No mediastinal, hilar, or axillary lymphadenopathy is noted. No suspicious lytic or sclerotic osseous lesions are identified. IMPRESSION: 1. No evidence of pulmonary embolism. 2. Few thin walled cavities with surrounding ground glass opacities in posterior basal and anteromedial basal segment of left lower lobe and few centrilobular ground glass opacity nodules in tree in bud pattern in medial segment of middle lobe and medial basal segment of right lower lobe, suggestive of infective etiology. 3. Fibrocalcific, fibrobronchiectatic and fibroatelectatic changes in bilateral lungs as described are likely the sequelae of prior insult. 4. Multiple thin-walled cysts of varying sizes in both the lungs. Electronically signed by Stanford Ojeda 01-23-2024 07:35 AM ECG Additional Comments: ECG on arrival revealed NSR at 61 bpm; QTc 402 Code Status & VTE Plan Code Status Full code (discussed with both patient and patient's at bedside) VTE Prophylaxis Plan VTE Prophylaxis will be ordered: Yes Supervising Physician Co-Signing Physician Notes PA Supervision Note: I personally saw and examined the patient. I verified all brown points and agree with ANGELIQUE Oliva with the following exceptions and/or additions: S-Pt here with severe right lower chest pain, nonradiating, constant, associated with N/V. No fevers. Has right ureteral stent in place since 12/2023, frequent hematuria and urinary urgency. No SOB. Received numerous doses of IV dilaudid in ER History and ROS otherwise reviewed as above O- Vitals reviewed Gen: [AAOx3, NAD, thin] HEENT: [anicteric sclerae] CV: [RRR no mgr nl S1S2, no ttp over chest wall or ribs, no masses or rashes on chest wall] Pulm: [CTAB no wcr] Abd: [+BS soft NT ND, LLQ colostomy bag with liquid and stool, parastomal hernia] Ext: [no edema] Skin: [no rashes, warm/dry] Neuro: [full strength throughout] CBC, CMP, troponin, BioFire, CXR, Chest CTA reviewed A/P-63 yo female here with severe right lower chest pain, severe, unclear etio logy CTA CHest no PE but shows multiple cysts and blebs, no PTX-appreciate PULM consult but lung issues not likel cause of her pain Not typical for ACS and trop neg x 2, ECG normal Checking CT abd/pel, UA, may consult Urology PG Care Time/CCT Total # of Minutes Spent Total Time Spent with Patient: Total time spent is greater than 50% in coordination of care (as documented) at patient's floor/unit and/or counseling patient: Coding [place] [address] INT INP/OBS CARE 3/75MIN Patient Type Established Medical Decision Making High Complexity Diagnoses Right-sided chest pain R07.9 Nausea and vomiting R11.2 SLE (systemic lupus erythematosus) M32.9 Colostomy status Z93.3 Anxiety F41.9 Secondary thrombocytopenia D69.59
[2024-01-23 09:01] LABS: Adenovirus PCR Not Detected (NotDetected); Bordetella parapertussis PCR Not Detected (NotDetected); Bordetella pertussis PCR Not Detected (NotDetected); Chlamydia pneumoniae PCR Not Detected (NotDetected); Coronavirus 229E PCR Not Detected (NotDetected); Coronavirus CoV-2 (COVID19)PCR Not Detected (NotDetected); Coronavirus HKU1 PCR Not Detected (NotDetected); Coronavirus NL63 PCR Not Detected (NotDetected); Coronavirus OC43PCR Not Detected (NotDetected); Human Metapneumovirus PCR Not Detected (NotDetected); Influenza A PCR Not Detected (NotDetected); Influenza B PCR Not Detected (NotDetected); Mycoplasma pneumoniae PCR Not Detected (NotDetected); Parainfluenza Virus 1 PCR Not Detected (NotDetected); Parainfluenza Virus 2 PCR Not Detected (NotDetected); Parainfluenza Virus 3 PCR Not Detected (NotDetected); Parainfluenza Virus 4 PCR Not Detected (NotDetected); Respiratory Syncytial VirusPCR Not Detected (NotDetected); Rhinovirus/Enterovirus PCR Not Detected (NotDetected)
[2024-01-23] MEDS: PANTOprazole 40 MG/10 ML SYR IV ONE (09:36)
[2024-01-23] MEDS: methylPREDNISolone 125 MG/2 ML VIAL IV STA (11:05)
[2024-01-23] MEDS ORDERED: HYPROMELLOSE OP SCH (11:12)
[2024-01-23] MEDS ORDERED: ONDANSETRON INJ 2 MG/ML 2 ML VIAL IV PRN (11:12)
[2024-01-23] MEDS ORDERED: ALUMINUM/MAGNESIUM SUSP 30 ML UDC PO PRN (11:12)
[2024-01-23] MEDS ORDERED: CARBOXYMETHYLCELLULOSE OP SCH (11:12)
[2024-01-23] MEDS ORDERED: PHENAZOPYRIDINE HCL 100 MG TAB PO PRN (11:12)
--- NOTE | 2024-01-23 11:23 | Pulmonary Consultation ---
Date of Consultation January 23, 2024 Assessment & Plan (1) Multiple idiopathic pulmonary cysts: (2) ILD (interstitial lung disease): (3) LIP (lymphoid interstitial pneumonitis): (4) Sjogrens syndrome: (5) SLE (systemic lupus erythematosus): (6) Anal cancer: Plan CT chest 01/23/2024 personally reviewed: Apical blebs appreciated bilaterally more on the right side Multiple cysts appreciated bilaterally upper and lower lobes Patchy groundglass opacity in the left lower lobe Calcified granuloma appreciated bilaterally No significant mediastinal lymphadenopathy -- Abnormal chest CT with multiple thin-walled cysts bilaterally Thin-walled cysts of varying sizes with smooth borders could be seen in LIP, lymphangioleiomyomatosis, Langerhans' cell histocytosis as well as Funmilayo Raul Claudia syndrome Given the history of Sjogren's as well as lupus, I think 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 --Left lower lobe opacity Respiratory BioFire negative for everything Patient had multiple CAT scan of the chest done at [facility]. Will try to get images --History of lupus and Sjogren's On prednisone 2 mg on a daily basis Used to follow-up with district manager major accounts sales at [facility] but has not followed up for a while --History of stage III anal cancer Diagnosed approximately in 2014 Was able to tolerate only 1 round of chemotherapy, completed full radiation Plan: I do not think patient's right sided discomfort is coming from pulmonary etiology. This is most likely the recent stenting on the right side. Would recommend CT abdomen pelvis and get urology involved especially with dysuria and hematuria. Can consider right upper quadrant ultrasound as well after CAT scan of the chest is done Autoimmune workup has been ordered for the patient Case was discussed with primary team Please note the above document was generated using voice recognition software. It may contain grammatical, syntax or spelling errors.Any formal questions or concerns about the content, text or information contained within the body of this dictation should be directly addressed to the provider for clarification. History of Present Illness Attending Physician: Cintia Villegas MD History of Present Illness 63-year-old female comes to the hospital for chest pain Past medical history: Nephrolithiasis, lupus on chronic prednisone 2 mg daily, anxiety, GERD, Sjogren's Pulmonary consulted for right-sided chest pain and abnormal chest CT At the time of examination patient was saturating 96 to 97% on room air. She was not in any respiratory distress Respiratory was in the low to mid teens. She stated that earlier in the morning she complained of some retrosternal pain which was dull and achy. It was radiating to the right side more around the right upper quadrant. She does complain of dysuria. She recently had a stent placed and on the right side because of kidney stone. Denies any fever or chills She does have a history of GERD and takes medications for it. No nausea or vomiting. Denies having similar episodes in the past. No headache or blurry vision No unintentional weight loss Social history: Lifetime non-smoker Allergies Allergy/AdvReac Type Severity Reaction Status Date / Time moxifloxacin [From Avelox] Allergy Severe Rash Verified 12/03/23 13:07 Penicillins Allergy Severe Hives Verified 12/03/23 13:07 Sulfa (Sulfonamide Allergy Severe Brain/Head Verified 12/03/23 13:07 Antibiotics) pressure cefoxitin Allergy Unknown Unknown Verified 12/03/23 13:07 vancomycin Allergy Unknown Unknown Verified 12/03/23 13:07 acetaminophen [From Tylenol] AdvReac Unknown Fever Verified 12/03/23 13:07 Antihistamines - Alkylamine AdvReac "skin Verified 12/03/23 13:07 crawling" with antihistamines Home Medications Medication Instructions Recorded Confirmed Type calcium 600 mg (as 1 tab PO DAILY 10/26/23 01/23/24 History carbonate)-vitamin D3 10 mcg (400 unit) tablet (Calcium 600 + D(3)) carboxymethylcellulose 1 drp ophthalmic (eye) BID 10/26/23 01/23/24 History sod-hypromell 0.25 %-0.3 % eye liquid gel drops carboxymethylcellulose sodium 1 % 1 drp ophthalmic (eye) BID 10/26/23 01/23/24 History eye gel in a dropperette (TheraTears) clonazepam 1 mg tablet 1 mg PO TID Anxiety/Insomnia 10/26/23 01/23/24 History docusate sodium 100 mg capsule 200 mg PO DAILY 10/26/23 01/23/24 History (Colace) levothyroxine 25 mcg tablet 25 mcg PO DAILYBB 10/26/23 01/23/24 History naloxone 4 mg/actuation nasal spray 4 mg intranasal UD PRN Other 10/26/23 01/23/24 History omeprazole 20 mg capsule,delayed 20 mg PO QAM 10/26/23 01/23/24 History release oxycodone 5 mg tablet 5 mg PO Q4 PRN Severe Pain (Scale 10/26/23 01/23/24 History Score 7-10) prednisone 1 mg tablet 2 mg PO DAILY 10/26/23 01/23/24 History tamsulosin 0.4 mg capsule 0.4 mg PO DAILY PRN Other 10/26/23 01/23/24 History cyanocobalamin (vitamin B-12) 1,000 mcg PO DAILY #30 caps 11/18/23 01/23/24 Rx 1,000 mcg capsule phenazopyridine 100 mg tablet 100 mg PO Q8H PRN bladder spasms 11/18/23 01/23/24 Rx (Pyridium) #14 tabs gabapentin 300 mg capsule 300 mg PO UD 01/23/24 01/23/24 History potassium citrate-citric acid 5 ml PO DAILY 01/23/24 01/23/24 History 1,100 mg-334 mg/5 mL oral solution prednisolone acetate 1 % eye 1 drp ophthalmic (eye) UD 01/23/24 01/23/24 History drops,suspension Patient History Medical History UTI (urinary tract infection) Sepsis Ureterolithiasis Anxiety Hydronephrosis Ureteral calculi Renal colic on right side Nephrolithiasis Raynaud's disease Medullary sponge kidney Panic disorder Hypothyroidism Anal cancer Social History Smoking Status: Never smoker Second Hand Exposure: Yes; Do You Dip or Chew Tobacco: No; Hx Alcohol Use: No Hx Substance Use: No Preferred Language: Irish Communication Ability: Effective Turning Machine Set Up Operator Required: No Beliefs That Will Affect Care: None Current Living Situation: Spouse Other Information That Helps Us Care for You: No Feels Safe at Home: Yes Safety Concerns: Feels Safe At This Time Assistive Devices: None Review of Systems 2 Review of Systems: All systems reviewed & are unremarkable except as noted in HPI & below Physical Exam 2 Physical Exam: Constitutional: No acute distress HEENT: EOMI, PERRLA, seems to have minimal pursed lips Respiratory system: Decreased air entry bilaterally, no wheeze, no rhonchi, positive crackles bilateral lower lobes, Velcro-like CVS: S1-S2 positive, no murmurs or gallops Abdomen: Soft, nondistended, positive bowel sounds x4, positive left-sided colostomy, minimal epigastric and right upper quadrant tenderness, no rebound, questionable positive Maldonado's Extremities: +2 pulses bilaterally radialis/ dorsalis pedis, no cyanosis, no edema, questionable sclerodactyly Neuro: Awake alert oriented x3 Psych: Normal mood and affect G/U: Positive Wheeler Skin: no rashes, warm and dry Lymphatic: no cervical or axillary lymphadenopathy Results & Data Results & Data Vital Signs (Past 12 Hours) Vital Signs Temp Pulse Pulse Resp BP BP Pulse Ox 01/23/24 09:36 65 01/23/24 08:00 67 14 139/77 97 01/23/24 07:30 67 18 146/76 H 98 01/23/24 06:36 69 13 96 01/23/24 06:30 69 14 140/77 99 01/23/24 06:30 140/77 01/23/24 06:21 67 13 97 01/23/24 06:00 134/73 01/23/24 05:42 69 15 01/23/24 05:39 72 14 01/23/24 05:35 73 01/23/24 05:22 68 18 91 01/23/24 04:51 62 18 97 01/23/24 04:51 94 01/23/24 04:40 36.8 C 81 18 136/73 99 O2 Del Method 01/23/24 09:36 01/23/24 08:00 Room Air 01/23/24 07:30 Room Air 01/23/24 06:36 Room Air 01/23/24 06:30 Room Air 01/23/24 06:30 01/23/24 06:21 Room Air 01/23/24 06:00 01/23/24 05:42 01/23/24 05:39 01/23/24 05:35 01/23/24 05:22 Room Air 01/23/24 04:51 Room Air 01/23/24 04:51 Room Air 01/23/24 04:40 Room Air Laboratory Results 01/23/24 04:57 01/23/24 04:57 PG Care Time/CCT Total # of Minutes Spent Total Time Spent with Patient: Total time spent is greater than 50% in coordination of care (as documented) at patient's floor/unit and/or counseling patient: Coding Level of Care Code 13946 INT INP/OBS CARE 3/75MIN Diagnoses Multiple idiopathic pulmonary cysts J98.4 ILD (interstitial lung disease) J84.9 LIP (lymphoid interstitial pneumonitis) J84.2 Sjogrens syndrome M35.00 SLE (systemic lupus erythematosus) M32.9 Anal cancer C21.0
[2024-01-23] MEDS: HYDROmorphone INJ 0.5 MG/0.5 ML SYR IV PRN (11:57)
[2024-01-23] MEDS: DOCUSATE SODIUM 100 MG CAP PO SCH (11:58)
[2024-01-23] MEDS: ARTIFICIAL TEARS OP SCH (11:58)
--- NOTE | 2024-01-23 14:43 | Electrocardiogram Report ---
Test Reason : Blood Pressure : */* mmHG Vent. Rate : 61 BPM Atrial Rate : 61 BPM P-R Int : 192 ms QRS Dur : 100 ms QT Int : 400 ms P-R-T Axes : 74 -18 56 degrees QTcB Int : 402 ms Normal sinus rhythm Low voltage QRS Incomplete right bundle branch block Borderline ECG When compared with ECG of 13-Nov-2023 18:41, Vent. rate has decreased by 39 bpm Incomplete right bundle branch block is now Present Confirmed by Darinel Franco ([id number]) on 01/23/2024 2:43:19 PM Referred By: Confirmed By: Darinel Franco
[2024-01-23] MEDS: clonazePAM 1 MG TAB PO SCH (15:04)
[2024-01-23 16:56] LABS: Appearance Urine Cloudy (Clear); Bacteria Urine Automated 4+ (None Seen); Bilirubin Urine Negative (Negative); Blood Urine 1+ (Negative); Cast Urine Automated 0-2 /lpf (0-2); Color Urine Yellow; Epithelial Cell Urine Auto 0-2 /hpf (0-2); Glucose Urine UA Negative (Negative); Ketones Urine Negative (Negative); Leukocyte Esterase Urine 2+ (Negative); Nitrite Urine Negative (Negative); Protein Urine 1+ (Negative); Specific Gravity Urine > 1.045 (1.000-1.030); Urobilinogen Urine Negative (Negative); WBC Urine Automated >50 /hpf (0-5)
[2024-01-23] MEDS: ACETAMINOPHEN 1,000 MG/100 ML VIAL IV PRN (16:56)
[2024-01-23] MEDS: DAPTOmycin 400 MG in SYRINGE 0 ML IV SCH (20:38)
[2024-01-23] MEDS: cefTRIAXone SODIUM 1,000 MG/50 ML BAG IV SCH (20:38)
[2024-01-23] MEDS: PANTOprazole 40 MG/10 ML SYR IV SCH (21:24)
--- OUTSIDE RECORDS SUMMARY | 2024-01-24 00:45 | External Medical Summary | Summary of Care ---
Author Name Unknown Organization [facility] Address [address] [place] [address] Phone [phone] Care Team Providers Care Chip Tuner Name Role Phone Caitie Aden Primary Care Provider [phone] Reason for Visit * Reason Comments Follow Up Encounter Details Date Type Department Care Team (Late st Contact Info) Description 01/14/2024 8:30 AM EST Telemedicine General Surgery, [address] [id number] Horace Elder MD [address] [place] [address] Abdominal pain, LLQ (left lower quadrant)* Allergies Active Allergy Reactions Criticality Noted Date [...] as of this encounter (statuses as of 01/14/2024) Medications KLONOPIN 0.5 MG PO TABSIndications:Lucio adeline disorder one bid 60 5 03/25/19 06 Active Additional Information Patient taking differently: 0.5 [...] every morning & 20meq with dinner 1 06/30/19 15 Active Carboxymethylcell- Hypromellose 0.25-0.3 % Ophthalmic Gel Instill 1 Drop into both eyes as needed for Dry eyes (HS). Active Tobramycin-Dexamet hasone (TOBRADEX ST) 0.3-0.05 % SUSP Instill into eye. Active Cyanocobalamin 2000 MCG Oral Tablet Take [...] Pain, Mild or Pain, Moderate. 30 Tablet 07/28/19 23 Active Cranberry 250 MG Oral Tablet Take 1 Tablet by mouth in the morning. Active Vitamin D 50 MCG (2000 UT) Oral Capsule Take 2,000 Units by mouth in the morning. Active Ondansetron 4 MG Oral Tablet Disintegrating (Zofran) Place 1 Tablet on tongue every 6 hours as needed for Nausea or Vomiting. Let tablet dissolve on tongue. 20 Tablet 05/20/2023 2:37 PM EDT 05/20/19 24 Active Additional Information Patient not taking.Reported on 06/05/2023 Sennosides 8.6 MG Oral Tablet (Senokot) Take 2 Tablets by mouth daily as needed for Constipation. 30 Tablet 05/20/2023 2:37 PM EDT 05/20/19 24 Active Additional Information Patient not taking.Reported on 06/05/2023 oxyCODONE HCl 10 MG Oral Tablet (Roxicodone) Take 1 Tablet by mouth every 6 hours as needed for severe pain 16 Tablet 05/20/2023 2:37 PM EDT 05/20/19 24 Active Gabapentin 300 MG Oral Capsule (Neurontin) Take 1 Capsule by mouth at bedtime. 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 Monoclonal paraproteinemia 11/13/2015 Anemia 11/13/2015 Febrile neutropenia 07/20/2015 Pancytopenia 07/20/2015 Urinary tract infection 07/20/2015 Rectal mass 06/29/2015 Primary anal squamous cell carcinoma 06/29/2015 Raynaud's syndrome 12/22/2009 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 Mammographic microcalcification 05/11/2003 Medullary sponge kidney 11/10/2002 Calculus of kidney 11/25/2001 Panic disorder 10/06/2001 Loss of weight 10/06/2001 Neutropenia 04/17/2001 Overview (06/13/2015): ICD-10 update of inactive term Secondary thrombocytopenia 04/17/2001 Overview (06/06/2015): ICD-10 update of inactive term Other specified visual disturbances 04/17/2001 Systemic lupus erythematosus 03/27/2001 Sicca syndrome LUMBAGO ACQUIRED HYPOTHYROID NEC documented as of this encounter (statuses as of 01/14/2024) Resolved Problems Problem Noted Date Diagnosed Date Resolved Date Anal fissure 02/08/2019 02/08/2019 ADVANCE DIRECTIVE INFORMATION 03/25/2005 01/05/2024 Overview (03/25/2005): No, Advance Directive brochure given to patient. documented as of this encounter (statuses as of 01/14/2024) Immunizations No known immunizationsdocumented as of this encounter Social History Tobacco Use Types Packs/Day Years Used Date Smoking Tobacco: Former Cigarettes 0.8 2 0 08/24/1979 - 08/23/1981 Smokeless Tobacco: Never Comments:after smoking x 2 y rs. Alcohol Use Standard Drinks/Week Comments No 0 (1 standard drink = 0.6 oz pur e alcohol) Personal Safety Answer Date Recorded Do you feel unsafe or have concerns for your saf ety? No 05/15/2023 Do you have concerns for you r family's safety? (Household - for ages 0-17 years) Not on file 05/15/2023 Utilities Answer Date Recorded Do you have trouble paying y our heating, water, or electric bill? No 05/15/2023 Is your family able to pay t he heat, water, or electric bill? (Household - for ages 0-17 years) Not on file 05/15/2023 Does your family have access to good internet? (Household - for ages 0-17 years) Not on file 05/15/2023 Transportation Needs Answer Date Record ed READ ONLY Do you have troubl e getting a ride to medical visits or work? Never True 05/15/2023 Does your family have a hard time getting a ride to doctors visits? (Household - for ages 0-17 years) Not on file 05/15/2023 Has lack of transportation k ept you from medical appointments, meetings, work, or from getting things needed for daily living? Check all that apply. (Adult - for ages 18 years and over) Not on file 05/15/2023 Do you (or your family) have trouble finding or paying for a ride (transportation)? (Household - for ages 0-17 years) Not on file 05/15/2023 Housing Stability Answer Date Recorded Do you currently live in a s helter or have no steady place to sleep at night? (Adult - for ages 18 years and over) Not on file 05/15/2023 READ ONLY Do you think you a re at risk of becoming homeless? No 05/15/2023 Does your family worry about paying for your home or becoming homeless? (Household - for ages 0-17 years) Not on file 0 05/15/2023 Are you homeless or worried that you might be in the future? (Adult - for ages 18 years and over) Not on file Are you (or your family) fuentes eless or worried that you might be in the future? (Household - for ages 0-17 years) Not on file Food Insecurity Answer Date Recorded Do you need food for this week? No 05/15/2023 Are you able to get enough f ood for your family? (Household - for ages 0-17 years) Not on file 05/15/2023 Does your family need food t his week? (Household - for ages 0-17 years) Not on file 05/15/2023 Do you always have enough fo od for your family? 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 Answer Date of Assessment Author No 05/15/2023 6:06 PM Malick Nair RN * Are you blind or do you have serious difficulty seeing, even when wearing glasses? Answer Date of Assessment Author No 05/15/2023 6:06 PM Malick Nair RN * Do you have serious difficulty walking or climbing stairs? (5 years old or older) Answer Date of Assessment Author No 05/15/2023 6:06 PM Malick Nair RN * Do you have difficulty dressing or bathing? (5 years old or older) Answer Date of Assessment Author No 05/15/2023 6:06 PM Malick Nair RN * Because of a physical, mental, or emotional condition, do you have difficulty doing errands alone such as visiting a doctors office or shopping? (15 years old or older) Answer Date of Assessment Author No 05/15/2023 6:06 PM Malick Nair RN documented as of this encounter Mental Status * Because of a physical, mental, or emotional condition, do you have serious difficulty concentrating, remembering, or making decisions? (5 years old or older) Answer Entry Date Author No 05/15/2023 6:06 PM EDT Malick Daley RN documented in this encounter Progress Notes * Horace Elder MD - 01/14/2024 8:23 AM EST After connecting to the patient via telephone, the patient was identified by name and date of . Patient was then informed that this was a telephone call only visit. The patient agreed to participate. Visit Disposition: Routine follow-up Total call duration was 5 minutes. The patient is following up for abdominal pain. She gets the pain at night. During the daytime she is usually ok. She is waiting to get her potasium changed to a liquid form. Her bowels are moving. PLAN- will start gabapentin 300 mg at night. Will follow up in 3 weeks. Horace Elder MD documented in this encounter Plan of Treatment Upcoming Encounters Date Type Department Care Team (Late st Contact Info) Description 02/06/2024 10:00 AM EST Telemedicine General Surgery, [address] [phone] Horace Elder MD [address] [place] [address] Health Maintenance Due Date Last Done Comments Lipid Panel 1961 Depression Screening 1973 HIV Screening 1976 Hepatitis C Screening 11/25/1979 DTap/Tdap Vaccines (1 - Tdap) 1980 HPV/Co-Test 11/25/1991 TSH 05/10/2004 05/11/2003, 08/2002, 03/18/2001, Additional history exists Mammogram 04/04/2006 04/04/2005, 03/04, 03/25/2005, Additional history exists Cologuard 2006 Fecal Occult Blood Test 2006 Sigmoidoscopy 2006 Cervical Cancer Screening 09/01/2007 Pap Smear 09/01/2007 08/31/2004, 03/2004, 09/07/2003, Additional history exists Zoster Vaccines (1 of 2) 11/25/2011 COVID-19 Vaccine ( season) 2023 Influenza Vaccine (FLU shot) (#1) 2023 Colonoscopy [...] encounter Medical Devices Implanted Type Area Senior Analytic Consultant Device Identifier Shelf Expiration Date Model / Serial / Lot Patch Tissue 10x15 [id number] - [id number] Implanted:Qty : 1 on 05/15/2023 by Horace Elder MD at [place] [facility] N/A: Abdomen [employer] [id number] 10/06/2027 [id number] / [id number] / [id number] Mesh Capsure Fixation 30 - [id number] Implanted:Qty : 1 on 05/15/2023 by Horace Elder MD at [place] [facility] CR BARD : DAVOL 05/28/2024 [id number] / / [id number] documented as of this encounter Visit Diagnoses Diagnosis Abdominal pain, LLQ (left lower quadrant)- Primary Abdominal pain, left lower quadrant documented in this encounter Advance Directives * [...] Discussed due to patient's condition Care Teams Chip Tuner Relationship Specialty Start Date End Date Caitie Aden DO [address] [place] [id number] PCP - General 09/12/09 documented as of this encounter
[2024-01-24] MEDS: LEVOTHYROXINE SODIUM 25 MCG TABLET PO SCH (06:10)
[2024-01-24 06:34] LABS: Basophils # (auto) 0.01 K/uL (0.00-0.20); Basophils % (auto) 0.2 %; Hematocrit (blood only) 38.1 % (37.0-47.0); Hemoglobin 12.8 g/dl (12.0-16.0); Immature Granulocytes # (auto) 0.01 K/uL (0.01-0.20); Immature Granulocytes % (auto) 0.2 %; Lymphocytes # (auto) 0.87 K/uL (1.20-3.40); Lymphocytes % (auto) 15.2 %; Mean Corpuscular Hemoglobin 30.3 pg (25.0-34.0); Mean Corpuscular Hgb Conc 33.6 g/dL (32.0-36.0); Mean Corpuscular Volume 90.3 fL (80.0-100.0); Mean Platelet Volume 9.7 fL (9.4-12.4); Monocytes # (auto) 0.49 K/uL (0.11-0.59); Monocytes % (auto) 8.6 %; Neutrophils # (auto) 4.35 K/uL (1.40-6.50); Neutrophils % (auto) 75.8 %; Platelet Count 114 K/uL (130-400); RDW Coefficient of Variation 14.7 % (11.5-14.5); RDW Standard Deviation 49.1 fL (36.4-46.3); Red Blood Count 4.22 M/uL (4.20-5.40); White Blood Count 5.73 K/ul (4.8-10.8)
[2024-01-24 07:07] LABS: BUN Creatinine Ratio 20.9 (10-20); Calcium 9.2 mg/dl (8.6-10.3); Creatinine Clr Calc Pharmacy 67.6 ml/min
[2024-01-24] MEDS: predniSONE 1 MG TAB PO SCH (07:39)
[2024-01-24] MEDS: CYANOCOBALAMIN (B-12) 500 MCG TABLET PO SCH (07:39)
--- NOTE | 2024-01-24 07:52 | Pulmonology Progress Note ---
Date of Service January 24, 2024 Assessment & Plan (1) Multiple idiopathic pulmonary cysts: (2) ILD (interstitial lung disease): (3) LIP (lymphoid interstitial pneumonitis): (4) Sjogrens syndrome: (5) SLE (systemic lupus erythematosus): (6) Anal cancer: Plan CT chest 01/23/2024 personally reviewed: Apical blebs appreciated bilaterally more on the right side Multiple cysts appreciated bilaterally upper and lower lobes Patchy groundglass opacity in the left lower lobe Calcified granuloma appreciated bilaterally No significant mediastinal lymphadenopathy -- Abnormal chest CT with multiple thin-walled cysts bilaterally Thin-walled cysts of varying sizes with smooth borders could be seen in LIP, lymphangioleiomyomatosis, Langerhans' cell histocytosis as well as Funmilayo Raul Claudia syndrome Given the history of Sjogren's as well as lupus, I think 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 --Left lower lobe opacity Respiratory BioFire negative for everything Patient had multiple CAT scan of the chest done at [facility]. Will try to get images --History of lupus and Sjogren's On prednisone 2 mg on a daily basis Used to follow-up with kapok machine operator at [facility] but has not followed up for a while --History of stage III anal cancer Diagnosed approximately in 2014 Was able to tolerate only 1 round of chemotherapy, completed full radiation Plan: Right upper quadrant ultrasound does show cholecystitis acute Surgery on board, plan for cholecystectomy today. Case was discussed with primary team Please note the above document was generated using voice recognition software. It may contain grammatical, syntax or spelling errors.Any formal questions or concerns about the content, text or information contained within the body of this dictation should be directly addressed to the provider for clarification. Admission and Anticipated Discharge Date Admission Date: January 23, 2024 Subjective Patient was seen and examined at bedside. No acute distress, no adverse events overnight She did spike fever Was complaining of some right upper quadrant still. No nausea vomiting Breathing carrasquillo she was saturating well on room air Denied any headache, no blurry vision Review of Systems 2 Review of Systems: All systems reviewed & are unremarkable except as noted in Subjective Physical Exam 2 Physical Exam: Constitutional: No acute distress HEENT: EOMI, PERRLA, seems to have minimal pursed lips Respiratory system: Decreased air entry bilaterally, no wheeze, no rhonchi, positive crackles bilateral lower lobes, Velcro-like CVS: S1-S2 positive, no murmurs or gallops Abdomen: Soft, nondistended, positive bowel sounds x4, positive left-sided colostomy, minimal epigastric and right upper quadrant tenderness, no rebound, positive Maldonado's Extremities: +2 pulses bilaterally radialis/ dorsalis pedis, no cyanosis, no edema, questionable sclerodactyly Neuro: Awake alert oriented x3 Psych: Normal mood and affect G/U: Positive Wheeler Skin: no rashes, warm and dry Lymphatic: no cervical or axillary lymphadenopathy Results & Data Results & Data Vital Signs (Past 12 Hours) Vital Signs Temp Pulse Pulse Resp BP Pulse Ox O2 Del Method 01/24/24 05:41 92 H 01/24/24 03:30 38.2 C H 97 H 20 100/68 96 Room Air 01/24/24 00:17 36.9 C 71 18 108/57 L 97 Room Air 01/23/24 22:24 72 01/23/24 19:56 36.9 C 78 20 101/61 95 Room Air Laboratory Results 01/24/24 06:07 01/24/24 06:07 PG Care Time/CCT Total # of Minutes Spent Total Time Spent with Patient: Total time spent is greater than 50% in coordination of care (as documented) at patient's floor/unit and/or counseling patient: Coding Level of Care Code 06141 SUB INP/OBS CARE 2/35MIN Diagnoses Multiple idiopathic pulmonary cysts J98.4 ILD (interstitial lung disease) J84.9 LIP (lymphoid interstitial pneumonitis) J84.2 Sjogrens syndrome M35.00 SLE (systemic lupus erythematosus) M32.9 Anal cancer C21.0
[2024-01-24] MEDS ORDERED: methylPREDNISolone 40 MG in SYRINGE 0 ML IV SCH (09:00)
[2024-01-24] MEDS ORDERED: methylPREDNISolone 1000 MG/16 ML IV SCH (09:00)
[2024-01-24] MEDS ORDERED: PANTOprazole 40 MG/10 ML SYR IV SCH (09:00)
[2024-01-24 09:19] LABS: Albumin Level 3.7 gm/dl (3.4-5.0); Bilirubin Direct 0.2 mg/dl (0-0.2); Bilirubin,Total 1.1 mg/dl (0.2-1.0); Total Protein 7.6 gm/dl (6.0-8.3)
[2024-01-24] MEDS: metroNIDAZOLE 500 MG/100 ML BAG IV SCH (09:21)
--- NOTE | 2024-01-24 10:09 | Surgery Consultation ---
Date of Consultation January 24, 2024 Assessment & Plan (1) Right-sided chest pain: The right sided chest and flank pain may be from the urinary tract infection and/or stent. Nonetheless the ultrasound is currently pending and I will follow-up with that with recommendations accordingly. (2) Sjogrens syndrome: (3) LIP (lymphoid interstitial pneumonitis): (4) ILD (interstitial lung disease): (5) Colostomy status: (6) SLE (systemic lupus erythematosus): (7) History of creation of ostomy: History of Present Illness Attending Physician: Cintia Villegas MD History of Present Illness This is 63-year-old female with multiple medical comorbidities including rectal cancer, history of creation of an ostomy, systemic lupus erythematosus, kidney stones, pancytopenia, and interstitial lung disease. She was awoken from her sleep 2 nights ago with severe right upper quadrant abdominal pain with radiation around her right flank. She presented to the emergency room. It should be noted that she currently has right sided ureteral stents. Her urinalysis did show urinary tract infection. Primary service is concerned for potential of cholecystitis. Ultrasound is currently ordered but pending. The patient is feeling much better although she did have some right sided pain last night Allergies Allergy/AdvReac Type Severity Reaction Status Date / Time moxifloxacin [From Avelox] Allergy Severe Rash Verified 12/03/23 13:07 Penicillins Allergy Severe Hives Verified 12/03/23 13:07 Sulfa (Sulfonamide Allergy Severe Brain/Head Verified 12/03/23 13:07 Antibiotics) pressure cefoxitin Allergy Unknown Unknown Verified 12/03/23 13:07 vancomycin Allergy Unknown Unknown Verified 12/03/23 13:07 acetaminophen [From Tylenol] AdvReac Unknown Fever Verified 12/03/23 13:07 Antihistamines - Alkylamine AdvReac "skin Verified 12/03/23 13:07 crawling" with antihistamines Home Medications Medication Instructions Recorded Confirmed Type calcium 600 mg (as 1 tab PO DAILY 10/26/23 01/23/24 History carbonate)-vitamin D3 10 mcg (400 unit) tablet (Calcium 600 + D(3)) carboxymethylcellulose 1 drp ophthalmic (eye) BID 10/26/23 01/23/24 History sod-hypromell 0.25 %-0.3 % eye liquid gel drops carboxymethylcellulose sodium 1 % 1 drp ophthalmic (eye) BID 10/26/23 01/23/24 History eye gel in a dropperette (TheraTears) clonazepam 1 mg tablet 1 mg PO TID Anxiety/Insomnia 10/26/23 01/23/24 History docusate sodium 100 mg capsule 200 mg PO DAILY 10/26/23 01/23/24 History (Colace) levothyroxine 25 mcg tablet 25 mcg PO DAILYBB 10/26/23 01/23/24 History naloxone 4 mg/actuation nasal spray 4 mg intranasal UD PRN Other 10/26/23 01/23/24 History omeprazole 20 mg capsule,delayed 20 mg PO QAM 10/26/23 01/23/24 History release oxycodone 5 mg tablet 5 mg PO Q4 PRN Severe Pain (Scale 10/26/23 01/23/24 History Score 7-10) prednisone 1 mg tablet 2 mg PO DAILY 10/26/23 01/23/24 History tamsulosin 0.4 mg capsule 0.4 mg PO DAILY PRN Other 10/26/23 01/23/24 History cyanocobalamin (vitamin B-12) 1,000 mcg PO DAILY #30 caps 11/18/23 01/23/24 Rx 1,000 mcg capsule phenazopyridine 100 mg tablet 100 mg PO Q8H PRN bladder spasms 11/18/23 01/23/24 Rx (Pyridium) #14 tabs gabapentin 300 mg capsule 300 mg PO UD 01/23/24 01/23/24 History potassium citrate-citric acid 5 ml PO DAILY 01/23/24 01/23/24 History 1,100 mg-334 mg/5 mL oral solution prednisolone acetate 1 % eye 1 drp ophthalmic (eye) UD 01/23/24 01/23/24 History drops,suspension Patient History Medical History (Updated 01/24/24 @ 06:46 by Cristy Burroughs DO) UTI (urinary tract infection) Sepsis Ureterolithiasis Hydronephrosis Ureteral calculi Renal colic on right side Nephrolithiasis Raynaud's disease Medullary sponge kidney Panic disorder Hypothyroidism Anal cancer Surgical History (Updated 01/23/24 @ 17:00 by Cintia Villegas MD) H/O breast biopsy H/O dilation and curettage S/P tonsillectomy and adenoidectomy H/O wrist surgery H/O ventral hernia repair H/O colectomy Family History (Updated 01/23/24 @ 17:00 by Cintia Villegas MD) Other Family history non-contributory Social History Smoking Status: Never smoker Second Hand Exposure: Yes; Do You Dip or Chew Tobacco: No; Hx Alcohol Use: No Hx Substance Use: No Preferred Language: Wolof Communication Ability: Effective Application Coordinator Required: No Beliefs That Will Affect Care: None Current Living Situation: Spouse Other Information That Helps Us Care for You: No Feels Safe at Home: Yes Safety Concerns: Feels Safe At This Time Assistive Devices: None Physical Exam Constitutional: WD/WN, vitals as above no acute distress and not ill appearing Eyes: PERRL, conjunctivae normal, anicteric sclerae EOM intact bilaterally ENMT: external ear and nose normal, oropharynx normal Ears: no hearing impairment Neck: trachea midline, no thyromegaly Respiratory: normal respiratory effort; no respiratory distress and does not use accessory muscles Cardiovascular: Rate/Rhythm: regular rate and regular rhythm Gastrointestinal (Abdomen): Soft. Currently nontender. Left-sided stoma intact. No palpable abnormalities Skin: no rashes, warm and dry Psychiatric: Orientation: alert, oriented x 3 and cooperative Results & Data Vital Signs (Past 12 Hours) Vital Signs Temp Pulse Pulse Resp BP Pulse Ox O2 Del Method 01/24/24 08:13 36.9 C 113 H 20 90/59 L 94 Room Air 01/24/24 05:41 92 H 01/24/24 03:30 38.2 C H 97 H 20 100/68 96 Room Air 01/24/24 00:17 36.9 C 71 18 108/57 L 97 Room Air 01/23/24 22:24 72 PG Care Time/CCT Total # of Minutes Spent Total Time Spent with Patient: Total time spent is greater than 50% in coordination of care (as documented) at patient's floor/unit and/or counseling patient: Coding Level of Care Code 69248 IN/OBS CONSULT LVL 3,45M Diagnoses Right-sided chest pain R07.9 Sjogrens syndrome M35.00 LIP (lymphoid interstitial pneumonitis) J84.2 ILD (interstitial lung disease) J84.9 Colostomy status Z93.3 SLE (systemic lupus erythematosus) M32.9 History of creation of ostomy Z93.9
--- NOTE | 2024-01-24 10:45 | Ultrasound Report ---
US gallbladder CLINICAL HISTORY: suspect acute cholecystitis COMPARISON STUDY: CT of the abdomen and pelvis January 23, 2024. FINDINGS: Liver is sonographically normal. Caliber of the common bile duct is at the upper limits of normal, measuring 7 mm. Pancreas is unremarkable by sonography although the head and tail are slightl y obscured. The gallbladder is distended. Multiple gallstones within the gallbladder present. The wal l is thickened. Pericholecystic fluid is noted and a sonographic Maldonado sign was elicited. There is t race perihepatic fluid as well. Mild right collecting system dilatation is present. Right ureteral st ent is better depicted by CT. IMPRESSION: 1. Cholelithiasis with gallbladder wall thickening and positive sonographic Maldonado sign. Trace peric holecystic fluid. The findings suggest acute cholecystitis. 2. Top normal caliber common bile duct. This could be correlated with liver function tests. ACT 112: Negative or not required by law. Electronically signed by: Nick Tena M.D. 01/24/2024 10:43 AM
[2024-01-24] MEDS ORDERED: NEOSTIGMINE METHYLSULFATE 1 MG/ML 10ML VIAL ONE (11:06)
[2024-01-24] MEDS ORDERED: MIDAZOLAM HCL 1 MG/ML 2ML VIAL ONE (11:06)
[2024-01-24] MEDS ORDERED: DEXAMETHASONE SOD INJ 4 MG/ML VIAL ONE (11:06)
[2024-01-24] MEDS ORDERED: ONDANSETRON INJ 2 MG/ML 2 ML VIAL ONE (11:06)
[2024-01-24] MEDS ORDERED: PROPOFOL IV EMULSION 10 MG/ML 20 ML VIAL IV ONE (11:06)
[2024-01-24] MEDS ORDERED: fentaNYL citrate PF 100 MCG/2 ML VIAL ONE (11:06)
[2024-01-24] MEDS ORDERED: ROCURONIUM BROMIDE 10 MG/ML 5 ML VIAL IV ONE (11:06)
[2024-01-24] MEDS ORDERED: GLYCOPYRROLATE 0.2 MG/ML VIAL ONE (11:06)
[2024-01-24] MEDS ORDERED: LIDOCAINE 2% 2 ML VIAL/AMP(20MG/ML) INFIL ONE (11:06)
--- NOTE | 2024-01-24 11:06 | History & Physical Bridge Note ---
Date of Service January 24, 2024 History & Physical Bridge Note I have examined the patient, reviewed the History & Physical and in the interval since the performance of the History & Physical I have noted the following changes of clinical significance: ultrasound showed acute cholecystitis. discussed with pt lap reyanldo...discussed risks ( bleeding/infection/bile duct injury/leaks/injury to other organs/dvt/pe/mi/cva etc...) questions answered. will proceed with lap reynaldo today. pt agreeable. Tbili with slight bump but d.bili normal. will recheck tomorrow.
[2024-01-24] MEDS ORDERED: SUCCINYLCHOLINE CHLORIDE 20 MG/ML 10 ML VIAL IV ONE (11:08)
--- NOTE | 2024-01-24 11:15 | Anesthesiology Consultation ---
Date of Service January 24, 2024 Assessment & Plan Chart Review Chart Review: Acceptable Risk for Surgery and Patient NOT seen in Pre Admission Testing Consults Requested none ASA [id number] Proposed Anesthesia Anesthesia Type: General History Surgery Operation Date: 01/24/24 12:00 Proposed Procedures p Laparoscopic Cholecystectomy - Pipe De Guzman, Height/Weight Height: 5 ft 11 in Weight: 63.1 kg Allergies Allergy/AdvReac Type Severity Reaction Status Date / Time moxifloxacin [From Avelox] Allergy Severe Rash Verified 12/03/23 13:07 Penicillins Allergy Severe Hives Verified 12/03/23 13:07 Sulfa (Sulfonamide Allergy Severe Brain/Head Verified 12/03/23 13:07 Antibiotics) pressure cefoxitin Allergy Unknown Unknown Verified 12/03/23 13:07 vancomycin Allergy Unknown Unknown Verified 12/03/23 13:07 acetaminophen [From Tylenol] AdvReac Unknown Fever Verified 12/03/23 13:07 Antihistamines - Alkylamine AdvReac "skin Verified 12/03/23 13:07 crawling" with antihistamines Medications Home Medications Medication Instructions Recorded Confirmed Last Taken calcium 600 mg (as 1 tab PO DAILY 10/26/23 01/23/24 01/22/24 carbonate)-vitamin D3 10 mcg (400 unit) tablet (Calcium 600 + D(3)) carboxymethylcellulose 1 drp ophthalmic (eye) BID 10/26/23 01/23/24 01/22/24 sod-hypromell 0.25 %-0.3 % eye liquid gel drops carboxymethylcellulose sodium 1 % 1 drp ophthalmic (eye) BID 10/26/23 01/23/24 01/22/24 eye gel in a dropperette (TheraTears) clonazepam 1 mg tablet 1 mg PO TID Anxiety/Insomnia 10/26/23 01/23/24 01/22/24 docusate sodium 100 mg capsule 200 mg PO DAILY 10/26/23 01/23/24 01/22/24 (Colace) levothyroxine 25 mcg tablet 25 mcg PO DAILYBB 10/26/23 01/23/24 01/22/24 naloxone 4 mg/actuation nasal spray 4 mg intranasal UD PRN Other 10/26/23 01/23/24 10/25/23 omeprazole 20 mg capsule,delayed 20 mg PO QAM 08/01/23/24 01/22/24 release oxycodone 5 mg tablet 5 mg PO Q4 PRN Severe Pain (Scale 10/26/23 01/23/24 12/03/23 08:00 Score 7-10) prednisone 1 mg tablet 2 mg PO DAILY 10/26/23 01/23/24 01/22/24 tamsulosin 0.4 mg capsule 0.4 mg PO DAILY PRN Other 10/26/23 01/23/24 12/02/23 cyanocobalamin (vitamin B-12) 1,000 mcg PO DAILY #30 caps 11/18/23 01/23/24 01/22/24 1,000 mcg capsule phenazopyridine 100 mg tablet 100 mg PO Q8H PRN bladder spasms 11/18/23 01/23/24 2 Days Ago (Pyridium) #14 tabs ~12/01/23 gabapentin 300 mg capsule 300 mg PO UD 01/23/24 01/23/24 01/22/24 potassium citrate-citric acid 5 ml PO DAILY 01/23/24 01/23/24 01/22/24 1,100 mg-334 mg/5 mL oral solution prednisolone acetate 1 % eye 1 drp ophthalmic (eye) UD 01/23/24 01/23/24 01/22/24 drops,suspension Active Medications Generic Name Dose Route Start Last Admin Trade Name Tona PRN Reason Stop Dose Admin Artificial Tears 1 drops 01/23/24 11:30 01/24/24 07:39 Artificial Tears OP 02/22/24 11:29 1 drops BID SHAYY Administration Clonazepam 1 mg 01/23/24 14:00 01/24/24 07:55 Clonazepam 1 Mg Tab PO 02/22/24 13:59 1 mg TID SHAYY Administration Cyanocobalamin 1,000 mcg 01/24/24 09:00 01/24/24 07:39 Cyanocobalamin (B-12) 500 Mcg Tablet PO 02/23/24 08:59 1,000 mcg DAILY SHAYY Administration Docusate Sodium 200 mg 01/23/24 11:12 01/24/24 07:54 Docusate Sodium 100 Mg Cap PO 02/22/24 11:11 200 mg DAILY SHAYY Administration Hydromorphone HCl 0.5 mg 01/23/24 11:12 01/24/24 03:18 Hydromorphone Inj 0.5 Mg/0.5 Ml Syr IV 02/06/24 11:11 0.5 mg Q2H PRN Administration Mod/Severe Pain (6-10) on NRS Acetaminophen 1,000 mg in 100 mls @ 400 mls/hr 01/23/24 11:12 01/24/24 06:34 Ofirmev IV 01/26/24 11:11 Infused Q8H PRN Infusion Fever/Mild Pain (Pain 1-5) Pantoprazole Sodium 40 mg in 10 mls @ 5 mls/min 01/23/24 21:00 01/24/24 08:13 Protonix IV 02/22/24 20:59 5 mls/min BID SHAYY Administration Ceftriaxone Sodium 1,000 mg in 50 mls @ 100 mls/hr 01/23/24 20:00 01/23/24 21:33 Rocephin IV 02/02/24 19:59 Infused Q24H SHAYY Infusion Daptomycin 400 mg/ Syringe 8 mls @ 4 mls/min 01/23/24 20:00 01/23/24 20:38 IV 02/02/24 19:59 4 mls/min Q24H SHAYY Administration Protocol Metronidazole 500 mg in 100 mls @ 100 mls/hr 01/24/24 08:00 01/24/24 10:22 Flagyl IV 02/03/24 07:59 Infused Q8H SHAYY Infusion Protocol Levothyroxine Sodium 25 mcg 01/24/24 06:30 01/24/24 06:10 Levothyroxine Sodium 25 Mcg Tablet PO 02/23/24 06:29 25 mcg DAILYBB SHAYY Administration Prednisone 2 mg 01/24/24 09:00 01/24/24 07:39 Prednisone 1 Mg Tab PO 02/23/24 08:59 2 mg QAM SHAYY Administration Past Medical History Medical History UTI (urinary tract infection) Sepsis Ureterolithiasis Hydronephrosis Ureteral calculi Renal colic on right side Nephrolithiasis Raynaud's disease Medullary sponge kidney Panic disorder Hypothyroidism Anal cancer Pulm. nodules B/L apical blebs SLE Sjogren's Thrombocytopenia IRBBB Exercise / Class Metabolic Activity II 4-5 Yardwork/Stairs/Walk up hill Past Family History Family History Other Family history non-contributory Past Surgical History Surgical History H/O breast biopsy H/O dilation and curettage S/P tonsillectomy and adenoidectomy H/O wrist surgery H/O ventral hernia repair H/O colectomy Past Anesthesia History No Hx of Anesthesia Complications and No Family Hx of Anesthesia Complications History of PONV No Hx of PONV and No Hx of Motion Sickness Social History Smoking Status: Never smoker Do You Dip or Chew Tobacco: No Hx Alcohol Use: No Hx Substance Use: No Physical Exam Vital Signs Last Vital Signs Temp 36.9 C 01/24/24 11:09 Pulse 90 01/24/24 11:09 Resp 18 01/24/24 11:09 BP 103/63 01/24/24 11:09 Pulse Ox 94 01/24/24 11:09 O2 Del Method Room Air 01/24/24 11:09 Testing Laboratory Results 01/24/24 06:07 01/24/24 06:07 Urine Color Yellow 01/23/24 09:12 Urine Appearance Cloudy (Clear) A 01/23/24 09:12 Urine pH 6.0 (4.5-7.5) 01/23/24 09:12 Ur Specific [place] > 1.045 (1.000-1.030) H 01/23/24 09:12 Urine Protein 1+ (Negative) H 01/23/24 09:12 Urine Glucose (UA) Negative (Negative) 01/23/24 09:12 Urine Ketones Negative (Negative) 01/23/24 09:12 Urine Nitrite Negative (Negative) 01/23/24 09:12 Ur Leukocyte Esterase 2+ (Negative) H 01/23/24 09:12 Urine WBC (Auto) >50 /hpf (0-5) H 01/23/24 09:12 Urine RBC (Auto) 6-10 /hpf (0-2) H 01/23/24 09:12 U Hyaline Cast (Auto) 0-2 /lpf (0-2) 01/23/24 09:12 U Epithel Cells (Auto) 0-2 /hpf (0-2) 01/23/24 09:12 Urine Bacteria (Auto) 4+ (None Seen) H 01/23/24 09:12 01/23/24 09:12 Urine Culture - Preliminary Urine,Clean Catch Klebsiella pneumoniae Electrocardiogram Date: 01/23/24 Findings: + NSR @ (@ 61;IRBBB;low voltage QRS) Echocardiogram Date: 11/15/23 EF: 55% LV Function: normal RWMA: + none Valvular Disease: + no significant valvular disease
--- NOTE | 2024-01-24 11:38 | Hospitalist Progress Note ---
Date of Service January 24, 2024 Assessment & Plan (1) Acute cholecystitis: Plan: Acute onset of right-sided chest pain that woke her from sleep at 2 AM on the morning of 01/22 ACS ruled out, CTA chest neg for PE but with cysts and infiltrates-chronic lung issue No leukocytosis; afebrile initially but then spiked fever after admission BioFire negative, PCT negative; CRP, and ESR mildly elevated With evidence of UTI and CT abd/pel ordered to assess right ureteral stent---> found acute cholecystitis, with circumferential wall thickening colonic segment extending to the colostomy potentially colitis RUQ US today confirms acute reynaldo Now with TBili mildly elevated Consult Gen Surg, keep NPO, plan for lap reynaldo 01/23 Give stress dose steroids in anesthesia preop as per my d/w SUrgeon IV acetaminophen and Dilaudid as needed for breakthrough pain COntinue ceftriaxone (also for UTI) and add IV Flagyl Follow CBC, CMP in the morning (2) UTI (urinary tract infection): Plan: Urinalysis abnormal, has indwelling right ureteral stent which is in place on CT with no hydronephrosis Follow urine culture Continue ceftriaxone and daptomycin to cover for previous Klebsiella and Enterococcus UTI/bacteremia With fever, check blood cultures (3) SLE (systemic lupus erythematosus): Plan: and also with Sjogren's On chronic prednisone therapy; 2 mg daily Give stress dose steroids with anesthesia dexamethasone and then start prednisone 20 mg daily tomorrow for stress dose steroids for 3 days and then taper (4) Secondary thrombocytopenia: Plan: Platelets 111 on arrival, with chronic pancytopenia with h/o splenomegaly and MALT lymphoma, splenomegaly seen on CT abdomen/pelvis on 01/23 previous B12 level low normal and was on replacement-checked again here now normal Follow-up with oncology Keep an eye on CBC (5) LIP (lymphoid interstitial pneumonitis): Plan: With multiple thin-walled cysts in the lungs, labs, granulomas, and patchy groundglass opacities, no mediastinal lymphadenopathy Pulmonology consult appreciated-thanks she could have lymphocytic interstitial pneumonitis Autoimmune workup pending Needs outpatient follow-up with pulmonology Plan Hypothyroidism: TSH recently 0.8, continue home LT4 Anxiety-continue home clonazepam H/o kidney stones, ureteral stricture-with right ureteral stent in place-CT abdomen/pelvis here shows stent is in place and no further hydronephrosis Follow-up with urology as outpatient Treating UTI as above continue home potassium citrate once nausea improved Colostomy status- Colostomy care QS Disposition: Continued stay on MedSurg telemetry Full code VTE PPx: SCDs, hold chemical anticoagulation until safe from postoperative standpoint Admission and Anticipated Discharge Date Admission Date: January 23, 2024 Subjective Patient with ongoing right upper quadrant pain. CT scan finally got done earlier this morning and shows acute cholecystitis and this was confirmed with ultrasound. I discussed her care with the surgeon who will take her for laparos copic cholecystectomy today She spiked a fever overnight. Telemetry with normal sinus rhythm and sinus tachycardia, PACs and PVCs, rates in the 70s to 90s Physical Exam Constitutional: + thin; no acute distress Respiratory: normal respiratory effort, lungs clear to auscultation Cardiovascular: RRR, no murmur, no edema Gastrointestinal (Abdomen): Inspection/Auscultation: normal bowel sounds; abdomen not distended Percussion/Palpation: + abdomen tender (Mild and RUQ without guarding or rebound) Psychiatric: A+Ox3, euthymic affect Results & Data Results & Data Vital Signs (Past 12 Hours) Vital Signs Temp Pulse Pulse Resp BP Pulse Ox O2 Del Method 01/24/24 11:09 36.9 C 90 18 103/63 94 Room Air 01/24/24 08:13 36.9 C 113 H 20 90/59 L 94 Room Air 01/24/24 05:41 92 H 01/24/24 03:30 38.2 C H 97 H 20 100/68 96 Room Air 01/24/24 00:17 36.9 C 71 18 108/57 L 97 Room Air Laboratory Results CBC, CMP reviewed Diagnostic Findings CT abdomen/pelvis reviewed Right upper quadrant ultrasound reviewed PG Care Time/CCT Total # of Minutes Spent Total Time Spent with Patient: Total time spent is greater than 50% in coordination of care (as documented) at patient's floor/unit and/or counseling patient: Coding Level of Care Code 44368 SUB INP/OBS CARE 3/50MIN Diagnoses Acute cholecystitis K81.0 UTI (urinary tract infection) N39.0 SLE (systemic lupus erythematosus) M32.9 Secondary thrombocytopenia D69.59 LIP (lymphoid interstitial pneumonitis) J84.2
[2024-01-24] MEDS ORDERED: ONDANSETRON INJ 2 MG/ML 2 ML VIAL IV PRN (11:42)
[2024-01-24] MEDS ORDERED: PROMETHAZINE HCL 6.25 MG in SODIUM CHLORIDE 0.9% 50 ML IV PRN (11:42)
[2024-01-24] MEDS ORDERED: FLUMAZENIL 0.1 MG/1 ML 10 ML VIAL IV PRN (11:42)
[2024-01-24] MEDS ORDERED: ePHEDrine sulfate 50 MG/ML AMP IV PRN (11:42)
[2024-01-24] MEDS ORDERED: ATROPINE SULFATE 0.1 MG/ML 10ML SYR IV PRN (11:42)
[2024-01-24] MEDS ORDERED: NALOXONE HCL 0.4 MG/1 ML VIAL/CARP IV PRN (11:42)
[2024-01-24] MEDS: ceFAZolin 2000MG 2,000 MG/15 ML SYR IV ONE (12:02)
[2024-01-24] MEDS ORDERED: SUGAMMADEX SODIUM 200 MG/2 ML VIAL IV ONE (12:29)
--- NOTE | 2024-01-24 12:29 | CT Scan Report ---
Exam(s): CT ABDOMEN + PELVIS Without Contrast EXAM: CT Abdomen and Pelvis Without Intravenous Contrast CLINICAL HISTORY: Reason for exam: right ureteral stent,right sided chest pain. TECHNIQUE: Axial computed tomography images of the abdomen and pelvis without intravenous contrast. CTDI is 10.05 mGy and DLP is 490.42 mGy-cm. Automated exposure control was utilized for the study. A dose lowering technique was utilized adhering to the principles of ALARA. COMPARISON: 10/26/23 FINDINGS: Lung bases: Linear scarring right lung base. Scattered blebs at the bilateral lung bases. ABDOMEN: Liver: Unremarkable. Gallbladder and bile ducts: Cholelithiasis. Gallbladder distention and wall edema. No biliary dilatation. Pancreas: Unremarkable. No ductal dilation. Spleen: Stable splenomegaly. Adrenals: Unremarkable. No mass. Kidneys and ureters: Bilateral nonobstructing kidney stones. No hydronephrosis of either kidney. Cortical scarring in the right kidney. Stomach and bowel: Postoperative changes of the bowel with a left-sided colostomy and oversewn distal colonic segment. Circumferential wall thickening in the colonic segment extending to the colostomy, potentially colitis. No obstruction. PELVIS: Appendix: Normal appendix. Bladder: Unremarkable. No stones. Reproductive: Unremarkable as visualized. ABDOMEN and PELVIS: Intraperitoneal space: Unremarkable. No free air or significant free fluid. Bones/joints: No acute fracture. No dislocation. Soft tissues: Fat-containing peristomal hernia, similar to prior. Hernia repair mesh along the left abdominal wall. Vasculature: Unremarkable. No abdominal aortic aneurysm. Lymph nodes: Unremarkable. No enlarged lymph nodes. Tubes, lines and devices: Right ureteral stent in place, appropriately positioned. IMPRESSION: 1. Cholelithiasis. Gallbladder distention and wall edema. Clinical/sonographic correlation for cholecystitis recommended. 2. Postoperative changes of the bowel with a left-sided colostomy and oversewn distal colonic segment. 3. Circumferential wall thickening in the colonic segment extending to the colostomy, potentially colitis. 4. Right ureteral stent in place, appropriately positioned. 5. Bilateral nonobstructing kidney stones. No hydronephrosis of either kidney. Electronically signed by: Sandra To M.D. 01/23/24 23:43 PM
[2024-01-24] MEDS: BUPIVACAINE/EPINEPHRINE 0.5% MPF 1:200,000 30 ML VIAL ONE (12:56)
--- NOTE | 2024-01-24 13:14 | Operative Report ---
PG Post Operative Report Pre & Post Diagnosis Operation Date: 01/24/24 12:00 Pre-Op Diagnosis: acute cholecystitis Post-Op Diagnosis: acute cholecystitis; adhesions I identified the patient and participated in the time-out.: Yes Procedure Operation Date: 01/24/24 12:00 Actual Procedures p Laparoscopic Cholecystectomy(Not Applicable)please add difficulty modifier - Pipe De Guzman DO Surgeon Pipe De Guzman DO Overnight Cashier mariana cano Estimated Blood Loss 20 Findings Consistent with Post-Op Diagnosis Specimens gallbladder Description of Procedure After informed consent was obtained the patient was taken to the operating room and placed in supine position. After successful intubation we began by using an adhesive Ioban dressing to drape off the left mid abdominal stoma. We then sterilely prepped and draped the abdomen in usual fashion. I began with a subxiphoid incision with an 11 blade scalpel. This was carried down through the soft tissue using cautery. The anterior fascia was opened using cautery and two #0 Vicryl stay sutures were placed. I was able to enter the peritoneum with a blunt finger penetration and performed a finger sweep. A 12 mm Stubbs trocar was placed and the abdomen was insufflated to 18 mmHg. The laparoscope was inserted. Because of her extensive prior surgical history there really was not much room to work. There were adhesions involving the entire lower half of the abdomen as well as the majority of the patient's left side of the abdomen. I was able to identify the recently placed mesh as well as her stoma. I was able to place 2 right upper quadrant 5 mm trocars as well as a right mid abdominal 12 mm trocar. The patient was placed in reverse Trendelenburg position and slightly airplaned to the left. The gallbladder was acutely inflamed. I was able to grasp it elevate it superiorly and laterally. A small hole was made in the gallbladder during this process releasing some bile into the right upper quadrant. I was able to take down adhesions around the neck of the gallbladder and using blunt dissection delineate the cystic duct. It was skeletonized and clipped twice proximally and once distally and transected. In similar fashion the cystic artery was then skeletonized, clipped and divided. The gallbladder was removed from the gallbladder fossa. It was placed into an Endo Catch bag. It was removed from the camera port site. Thorough irrigation was performed. There was adequate hemostasis and no evidence of any bile leaks. The patient had been complaining of some left upper quadrant pain since her hernia repair. However the only abnormality were adhesions to the mesh as well as the stoma itself. Certainly it was far too dangerous to attempt to take these adhesions down. No other abnormalities were seen. All the trocars were removed and the abdomen desufflated. The fascia of the camera port was closed using 0 Vicryl in a [id number] fashion. All the wounds were irrigated and closed using 4-0 Monocryl. Marcaine with epinephrine was injected around them for postoperative analgesia and skin glue used as a dressing. The patient was awakened extubated and transferred to recovery in stable condition. My nurse practitioner was present for the entire case was instrumental in helping to gain access, providing exposure during my dissection, wound closure and dressing placement. Because of the extensive abdominal surgical history, difficulty gaining access, and acutely inflamed nature of the gallbladder this was a quite difficult case please add the difficulty modifier. I attest to the content of the Intraoperative Record and any orders documented therein. Any exceptions are noted below.
[2024-01-24] MEDS ORDERED: diphenhydrAMINE 50 MG/ML VIAL IV PRN (13:22)
[2024-01-24] MEDS: fentaNYL citrate PF 100 MCG/2 ML VIAL IV PRN (13:28)
[2024-01-24] MEDS: fentaNYL citrate PF 100 MCG/2 ML VIAL ONE (13:35)
[2024-01-24] MEDS: HYDROmorphone INJ 1 MG/ML SYRINGE IV PRN (13:57)
--- NOTE | 2024-01-24 13:59 | Anesthesiology Progress Note ---
Date of Service January 24, 2024 Anesthesia Post Procedure Vital Signs Vital Signs: Temp Pulse Pulse Pulse Resp BP Pulse Ox 01/24/24 13:45 76 12 135/66 94 01/24/24 13:35 77 14 139/59 L 98 01/24/24 13:25 80 14 138/73 100 01/24/24 13:15 81 12 137/62 100 01/24/24 13:09 36.5 C 79 14 138/62 98 01/24/24 11:09 36.9 C 90 18 103/63 94 01/24/24 08:13 36.9 C 113 H 20 90/59 L 94 01/24/24 05:41 92 H 01/24/24 03:30 38.2 C H 97 H 20 100/68 96 01/24/24 00:17 36.9 C 71 18 108/57 L 97 01/23/24 22:24 72 01/23/24 19:56 36.9 C 78 20 101/61 95 01/23/24 15:29 36.9 C 80 18 114/69 94 O2 Del Method O2 Flow Rate 01/24/24 13:45 Room Air 01/24/24 13:35 Room Air 01/24/24 13:25 Oxymask 7 01/24/24 13:15 Oxymask 7 01/24/24 13:09 Oxymask 7 01/24/24 11:09 Room Air 01/24/24 08:13 Room Air 01/24/24 05:41 01/24/24 03:30 Room Air 01/24/24 00:17 Room Air 01/23/24 22:24 01/23/24 19:56 Room Air 01/23/24 15:29 Room Air Pain Intensity Right Chest: Pain Intensity: 4 Right Abdomen: Pain Intensity: 8 Transfer of Care Handoff Completed per policy Notes Mental Status: alert / awake / arousable Patient Amnestic to Procedure: Yes Nausea / Vomiting: adequately controlled Pain: adequately controlled Airway Patency, RR, SpO2: stable & adequate BP & HR: stable & adequate Hydration State: stable & adequate Anesthetic Complications: no major complications apparent
[2024-01-24] MEDS: HYDROmorphone INJ 1 MG/ML SYRINGE ONE (14:03)
[2024-01-24] MEDS: predniSONE 20 MG TAB PO SCH (15:55)
[2024-01-25 00:24] VITALS: RESP 18
[2024-01-25 03:08] VITALS: O2SAT 96
[2024-01-25 07:47] LABS: Basophils # (auto) 0.01 K/uL (0.00-0.20); Basophils % (auto) 0.2 %; Eosinophils # (auto) 0.02 K/uL (0.00-0.50); Eosinophils % (auto) 0.4 %; Hematocrit (blood only) 33.2 % (37.0-47.0); Hemoglobin 10.9 g/dl (12.0-16.0); Immature Granulocytes # (auto) 0.02 K/uL (0.01-0.20); Immature Granulocytes % (auto) 0.4 %; Lymphocytes # (auto) 0.82 K/uL (1.20-3.40); Lymphocytes % (auto) 14.8 %; Mean Corpuscular Hemoglobin 30.1 pg (25.0-34.0); Mean Corpuscular Hgb Conc 32.8 g/dL (32.0-36.0); Mean Corpuscular Volume 91.7 fL (80.0-100.0); Mean Platelet Volume 9.6 fL (9.4-12.4); Monocytes # (auto) 0.48 K/uL (0.11-0.59); Monocytes % (auto) 8.7 %; Neutrophils # (auto) 4.18 K/uL (1.40-6.50); Neutrophils % (auto) 75.5 %; Platelet Count 104 K/uL (130-400); RDW Standard Deviation 50.4 fL (36.4-46.3); Red Blood Count 3.62 M/uL (4.20-5.40); White Blood Count 5.53 K/ul (4.8-10.8)
--- NOTE | 2024-01-25 07:50 | Pulmonology Progress Note ---
Date of Service January 25, 2024 Assessment & Plan (1) Multiple idiopathic pulmonary cysts: (2) ILD (interstitial lung disease): (3) LIP (lymphoid interstitial pneumonitis): (4) Sjogrens syndrome: (5) SLE (systemic lupus erythematosus): (6) Anal cancer: (7) Acute cholecystitis: Plan CT chest 01/23/2024 personally reviewed: Apical blebs appreciated bilaterally more on the right side Multiple cysts appreciated bilaterally upper and lower lobes Patchy groundglass opacity in the left lower lobe Calcified granuloma appreciated bilaterally No significant mediastinal lymphadenopathy -- Abnormal chest CT with multiple thin-walled cysts bilaterally Thin-walled cysts of varying sizes with smooth borders could be seen in LIP, lymphangioleiomyomatosis, Langerhans' cell histocytosis as well as Funmilayo Raul Claudia syndrome Given the history of Sjogren's as well as lupus, I think 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 --Left lower lobe opacity Respiratory BioFire negative for everything Patient had multiple CAT scan of the chest done at [facility]. Will try to get images --History of lupus and Sjogren's On prednisone 2 mg on a daily basis Used to follow-up with [facility] maker at [place] but has not followed up for a while --History of stage III anal cancer Diagnosed approximately in 2014 Was able to tolerate only 1 round of chemotherapy, completed full radiation Plan: Patient doing well from pulmonary perspective Pain management as per primary team No further recommendation from pulmonary perspective, will sign off Please call directly with any questions Please note the above document was generated using voice recognition software. It may contain grammatical, syntax or spelling errors.Any formal questions or concerns about the content, text or information contained within the body of this dictation should be directly addressed to the provider for clarification. Admission and Anticipated Discharge Date Admission Date: January 23, 2024 Subjective Patient seen and examined at bedside. No acute distress, no adverse events overnight Still complains of tenderness at the site of the incision for cholecystectomy Denied any issues with breathing Saturating well on room air No chest pain Fair appetite, no nausea or vomiting Review of Systems 2 Review of Systems: All systems reviewed & are unremarkable except as noted in Subjective Physical Exam 2 Physical Exam: Constitutional: No acute distress HEENT: EOMI, PERRLA, seems to have minimal pursed lips Respiratory system: Decreased air entry bilaterally, no wheeze, no rhonchi, positive crackles bilateral lower lobes, Velcro-like CVS: S1-S2 positive, no murmurs or gallops Abdomen: Soft, nondistended, positive bowel sounds x4, positive left-sided colostomy, positive tenderness around the incision site, no rebound Extremities: +2 pulses bilaterally radialis/ dorsalis pedis, no cyanosis, no edema, questionable sclerodactyly Neuro: Awake alert oriented x3 Psych: Normal mood and affect G/U: Positive Wheeler Skin: no rashes, warm and dry Lymphatic: no cervical or axillary lymphadenopathy Results & Data Results & Data Vital Signs (Past 12 Hours) Vital Signs Temp Pulse Pulse Resp BP Pulse Ox O2 Del Method 01/25/24 07:31 36.7 C 76 18 90/55 L 96 Room Air 01/25/24 03:07 36.6 C 82 18 110/71 96 Room Air 01/25/24 01:47 67 01/25/24 00:23 69 18 102/60 97 Room Air 01/24/24 23:06 36.8 C 68 16 89/53 L 95 Room Air 01/24/24 19:52 37.1 C 85 20 105/64 97 Room Air Laboratory Results 01/25/24 07:09 PG Care Time/CCT Total # of Minutes Spent Total Time Spent with Patient: Total time spent is greater than 50% in coordination of care (as documented) at patient's floor/unit and/or counseling patient: Coding Level of Care Code 86743 SUB INP/OBS CARE 2/35MIN Diagnoses Multiple idiopathic pulmonary cysts J98.4 ILD (interstitial lung disease) J84.9 LIP (lymphoid interstitial pneumonitis) J84.2 Sjogrens syndrome M35.00 SLE (systemic lupus erythematosus) M32.9 Anal cancer C21.0 Acute cholecystitis K81.0
[2024-01-25] MEDS ORDERED: oxyCODONE HCL IR 5 MG TAB (IMMEDIATE RELEASE) PO PRN (07:59)
[2024-01-25 08:10] LABS: Albumin Level 3.2 gm/dl (3.4-5.0); Bilirubin Direct 0.2 mg/dl (0-0.2); Bilirubin,Total 0.7 mg/dl (0.2-1.0); Calcium 8.5 mg/dl (8.6-10.3); Creatinine Clr Calc Pharmacy 71.9 ml/min; Potassium 3.6 mmol/L (3.5-5.1); Total Protein 6.5 gm/dl (6.0-8.3)
--- NOTE | 2024-01-25 09:09 | Surgery Progress Note ---
Date of Service January 25, 2024 Assessment & Plan (1) Acute cholecystitis: Plan: pod 1 doing well bili now normal ok for d/c from my standpoint instructions reviewed Admission and Anticipated Discharge Date Admission Date: January 23, 2024 Subjective pt seen. doing as expected bob clears pain controlled Physical Exam Physical Exam: alert. nad incisions c/d/i Results & Data Vital Signs (Past 12 Hours) Vital Signs Temp Pulse Pulse Resp BP Pulse Ox O2 Del Method 01/25/24 08:07 79 01/25/24 07:31 36.7 C 76 18 90/55 L 96 Room Air 01/25/24 03:07 36.6 C 82 18 110/71 96 Room Air 01/25/24 01:47 67 01/25/24 00:23 69 18 102/60 97 Room Air 01/24/24 23:06 36.8 C 68 16 89/53 L 95 Room Air PG Care Time/CCT Total # of Minutes Spent Total Time Spent with Patient: Total time spent is greater than 50% in coordination of care (as documented) at patient's floor/unit and/or counseling patient: Coding Level of Care Code 77770 Post Operative Follow-Up Diagnoses Acute cholecystitis K81.0
[2024-01-25 11:06] VITALS: PULSE 94; TEMP 98.2
[2024-01-25] MEDS: oxyCODONE HCL IR 5 MG TAB (IMMEDIATE RELEASE) PO PRN (11:53)
--- NOTE | 2024-01-25 15:17 | Discharge Summary ---
Discharge Summary Date of Service January 25, 2024 Principal Dx & Hospital Course #1 = Principal Diagnosis (1) Acute cholecystitis: Acute onset of right-sided chest pain that woke her from sleep at 2 AM on the morning of 01/22 ACS ruled out, CTA chest neg for PE but with cysts and infiltrates-chronic lung issue No leukocytosis; afebrile initially but then spiked fever after admission BioFire negative, PCT negative; CRP, and ESR mildly elevated With evidence of UTI and CT abd/pel ordered to assess right ureteral stent---> found acute cholecystitis, with circumferential wall thickening colonic segment extending to the colostomy potentially colitis RUQ US confirmed acute reynaldo Treated with ceftriaxone and flagyl After admission, had mildly elevated TBili which resolved after cholecystectomy. No evidence of CBD stones Consult Gen Surg appreciated--> s/p lap reynaldo 01/23 and doing well post-op---> pain controlled, ambulating, tolerating regular diet, no further fevers No further abx needed for cholecystitis now post-op Oxycodone prn pain F/u with Surgery in 1-2 weeks after discharge (2) UTI (urinary tract infection): Urinalysis abnormal, has indwelling right ureteral stent which is in place on CT with no hydronephrosis Urine culture here with Klebsiella pneumoniae with intermediate resistance to nitrofurantoin, cefuroxime, and cefoxitin Treated with ceftriaxone With fever probably more from the acute cholecystitis--> checked blood cultures-no growth to date at time of discharge Dc to home with 4 more days of po cefdinir 300mg bid x 4 more days for a total of 7 f/u with Urology as planned for ureteral stent management in Mar (3) SLE (systemic lupus erythematosus): and also with Sjogren's On chronic prednisone therapy; 2 mg daily Gave stress dose steroids with IV dexamethasone preop and then started prednisone 20 mg daily for 3 days and then taper to 10mg daily x 1 day then back to home dose (4) 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, with chronic pancytopenia with h/o splenomegaly and MALT lymphoma, splenomegaly seen on CT abdomen/pelvis on 01/23 previous B12 level low normal and was on replacement-checked again here now normal Follow-up with oncology as outpt Follow CBC as outpt (5) LIP (lymphoid interstitial pneumonitis): With multiple thin-walled cysts in the lungs, labs, granulomas, and patchy gr oundglass opacities, no mediastinal lymphadenopathy Pulmonology consult appreciated-thinks she could have lymphoid interstitial pneumonitis Autoimmune workup pending at time of discharge Needs outpatient follow-up with her primary pulmonology Plan Hypothyroidism: TSH recently 0.8, continue home LT4 Anxiety-continue home clonazepam H/o kidney stones, ureteral stricture-with right ureteral stent in place-CT abdomen/pelvis here shows stent is in place and no further hydronephrosis Follow-up with urology as outpatient Treating UTI as above continue home potassium citrate for stone prevention Colostomy status- Colostomy care QS, good output on day of discharge. She has chronic pain left abdomen from adhesions seen during surgery. Surgeon suggested Pain Management evaluation as an outpatient-referral givento patient Disposition: stable for dc to home. Discussed care with at bedside on day of discharge Full code VTE PPx: SCDs Notes For Next Care Provider Needs Pain Management evaluation for chronic adhesion-related pain Follow CBC, splenomegaly as outpt Medication Changes From Visit Added cefdinir 300mg po bid x 4 more days Admission HPI Per Admitting Provider Gilma is a pleasant 63yo female with PMH of anal cancer, colostomy status, SLE, Sjogren's syndrome, recurrent kidney stones, medullary sponge kidney, enterococcal bacteremia, and secondary thrombocytopenia. She presented on the morning of 01/22 for acute onset of right-sided chest pain that woke her from sleep around 2 AM. The chest pain was so significant that she vomited twice at home, and multiple times in the ED. She rates the pain 10/10 at worst, and 4/10 after receiving Dilaudid 0.5 mg IV x 4 in the ED. She characterizes the pain as a constant "dull, pressure-like" pain that is worse around her sternum and under her right breast. She initially thought it was in her "right lung". No radiation around the right flank. No radiation to the shoulders, jaw, or left chest wall. The pain is not worse with movements or twisting her upper body. N on-reproducible on palpation. Not worse with deep breaths. No alleviating/exacerbating factors identified other than Dilaudid. Patient does have a history of kidney stones on the right side, but reports this feels different than past episodes of kidney stones. No personal PMH of LA, DVT/PE, DM, HTN, HLD, costochondritis, or PVD. However, she does have a significant family history of heart issues: Her sister at 48 years old, from a suspected heart issue (autopsy came back with nothing definitive, but heart attack was in the differential; patient was also sick at the time). Patient's older sister has a pacemaker. Patient's cousin had a heart attack at 47 years old. She denies any chest pain with exertion, or chest pain this past week. In regard to pulmonary history, patient reports he had a pneumothorax on the left side 4 years ago requiring a chest tube. She has also had pleurisy x 2 on the left side (never on the right). She reports her pain today does not feel like her past episodes of pleurisy. No PMH of asthma, COPD, or sarcoidosis. She does follow with [facility] (Dr. Jimenez) for her lung nodules that developed after her chemotherapy. Additionally, she does have a history of GERD, and reports that her esophagus feels inflamed at this time, but reports this could be due to the vomiting. She denies any recent falls or injuries to the chest wall. She has been around her who has had a cough/cold-like symptoms x 1 month, but she denies any cold-like symptoms. No prior experiences of chest pain like this episode. Patient did not take any of her regular morning medicines today. Only new medication was that she was started on gabapentin 3 nights ago for ongoing left abdominal pain; she has had some mesh put in for history of abdominal surgeries (does not have much "stomach muscle" left). Patient has been told in the past she is unable to take NSAIDs due to her kidneys. She denies smoking, tobacco use, recent alcohol use. Patient is mildly hypertensive at 146/76 at time of admission; vitals otherwise stable. ED Course: Dilaudid 0.5mg IV x 4 Zofran 4 mg IV x 2 ROS: Patient endorses acute onset of chest pain at rest, vomiting x 4 (which patient attributes to pain), sore throat from vomiting, burning with urination (intermittent), dysuria, Patient denies fever, chills, night-sweats, dizziness, lightheadedness, chest pain in the past, rashes or bruising on the chest wall/flanks, tick bites, chest palpitations, pleuritic CP, SOB, cough, hemoptysis, abdominal pain, diarrhea, change in urinary/bowel habits, or numbness/tingling in the arms. Discharge Exam Constitutional + thin; no acute distress Respiratory normal respiratory effort, lungs clear to auscultation Cardiovascular RRR, no murmur, no edema Gastrointestinal (Abdomen) Inspection/Auscultation: normal bowel sounds; + abdomen abnormal to inspection (lap incisions w/ Dermabond,no drainage or bleeding) and abdomen not distended colostomy in place with liquid stool Psychiatric A+Ox3, euthymic affect Discharge Plan Discharge Items Patient Disposition: Home - Self-Care Reason For Visit: CHEST PAIN Discharge Diagnosis: acute cholecystitis UTI Activity: As commented below Lifting: No more than 10 pounds Bathing Comment: you can shower, no soaking in pools/bath for 2 weeks Exercise/Sports: Wait until after follow-up appointment Non-emergency contact: Primary Care Provider and Surgeon Call non-emergency contact if: you have any medication questions, your symptoms worsen, your temperature is above 101.5, your wound has increased redness, your wound has increased drainage and your wound pain has increased Follow-up/Referrals: Devonte Sommer MD, FIPP [Physician] - (Please call to schedule for a pain management evaluation) Pipe De Guzman DO [Surgeon] - (call office for f/u in 1-2 weeks ) Caitie Aden DO [Primary Care Provider] - (Follow up within 1-2 weeks) Diet: Regular Addtl Attending Provider Instructions: Please complete the course of antibiotics for your UTI. This antibiotic is called cefdinir and is to be taken twice a day for 4 more days. Follow up with Urology as planned for Mar 2024. You had your gallbladder removed and will need to follow up with the Surgeon. You can take pain medication as needed/prescribed. For your chronic left sided abdominal pain, please schedule an appointment with a pain Management doctor for further evaluation. You should take the higher dose of prednisone as prescribed for the next 2 days and then return to your usual dose after that. You do have an enlarged spleen seen on CT scan and have for some time. This is likely contributing to your mildly low platelet count. Please follow up with your PCP and/or your oncologist for this. You also were found to have cysts in your lungs and the [facility] [employer] was concerned about lymphoid interstitial pneumonitis. There were some blood tests sent off to work this up and you should follow up with your [facility] Teacher. Addtl Pivot Maker Provider Instructions: You have surgical glue called dermabond on your surgical site incisions. You may shower with this on. This will tend to come off within a couple of weeks. Do not pick at it. Pending Studies at Discharge: Yes (Pulmonology autoimmune workup labs) Studies:: surgical pathology, final blood cultures-no growth to date Stand-Alone Forms: My [facility], Smoking Cessation Medications and DC Order Prescriptions: New oxycodone 5 mg tablet 5 - 10 mg PO .[id number] PRN (Reason: pain, for initial therapy, max 6 tabs per day) Qty: 15 0RF prednisone 10 mg tablet 20 mg PO DAILY Qty: 3 0RF Rx Instructions: x 1 day then take 10mg po daily x 1 day, then return to your usual 2mg daily cefdinir 300 mg capsule 300 mg PO BID Qty: 8 0RF Continued clonazepam 1 mg tablet 1 mg PO TID levothyroxine 25 mcg tablet 25 mcg PO DAILYBB tamsulosin 0.4 mg capsule 0.4 mg PO DAILY PRN (Reason: Other) docusate sodium [Colace] 100 mg Capsule 200 mg PO DAILY omeprazole 20 mg capsule,delayed release(DR/EC) 20 mg PO QAM oxycodone 5 mg tablet 5 mg PO Q4 PRN (Reason: Severe Pain (Scale Score 7-10)) Rx Instructions: usually takes at night as needed. Q 4-6 hours calcium carbonate-vitamin D3 [Calcium 600 + D(3)] 600 mg-10 mcg (400 unit) Tablet 1 tab PO DAILY naloxone 4 mg/actuation spray,non-aerosol 4 mg INTRANASAL UD PRN (Reason: Other) Rx Instructions: Cochran 1 spray into one nostril as directed for overdose, respiratory supression/slow infrequent breathing. Repeat in 3 minutes in the other nostril if no response. Call 911. carboxymethylcell-hypromellose 0.25-0.3 % Drops, Liquid Gel 1 drp OPHTHALMIC (EYE) BID carboxymethylcellulose sodium [TheraTears] 1 % Dropperette,Gel 1 drp OPHTHALMIC (EYE) BID cyanocobalamin (vitamin B-12) 1,000 mcg capsule 1,000 mcg PO DAILY Qty: 30 0RF phenazopyridine [Pyridium] 100 mg tablet 100 mg PO Q8H PRN (Reason: bladder spasms) Qty: 14 0RF potassium citrate-citric acid 1,100-334 mg/5 mL solution 5 ml PO DAILY Rx Instructions: 15 ml total daily prednisolone acetate 1 % drops,suspension 1 drp ophthalmic (eye) UD Rx Instructions: 1 drop affected eye qid. start 2 days prior to surgery. bring bottle to surgery. gabapentin 300 mg capsule 300 mg PO UD Rx Instructions: just took 3rd one last night 01/21 but thinks she wants to hold off on the medication. Held prednisone 1 mg tablet 2 mg PO DAILY Hold Instructions: Resume on 01/28/24. Discharge Orders: Discharge Order (Routine); Ordered 01/25/24 Ordered By: Cintia Villegas Admission Data Admit Date/Time: 01/23/24 09:06 Attending Provider: Cintia Villegas Admit Provider: Cintia Villegas Primary Care Provider: Caitie Aden Other Providers: Cintia Villegas; Alexis Rollins; Pipe De Guzman Hospital Stay Data Consultations 01/23/24 08:19 ED Decision to Admit Stat 01/23/24 11:12 Consult Pulmonology Routine 01/24/24 08:03 Consult General Surgery Routine Procedures Performed Operation Date: 01/24/24 12:00 Actual Procedures p Laparoscopic Cholecystectomy(Not Applicable) - Pipe De Guzman DO Diagnostic Imagining Performed 01/23/24 05:04 CT angio chest PE protocol Stat 01/23/24 13:51 CT abd pelvis wo con Urgent 01/24/24 07:56 US GB [US gallbladder] Stat Pending Results Patient Have Any Pending Studies at Discharge: Yes Discharge Instructions Given to Patient (Per Discharging Provider) Please complete the course of antibiotics for your UTI. This antibiotic is called cefdinir and is to be taken twice a day for 4 more days. Follow up with Urology as planned for Mar 2024. You had your gallbladder removed and will need to follow up with the Surgeon. You can take pain medication as needed/prescribed. For your chronic left sided abdominal pain, please schedule an appointment with a pain Management doctor for further evaluation. You should take the higher dose of prednisone as prescribed for the next 2 days and then return to your usual dose after that. You do have an enlarged spleen seen on CT scan and have for some time. This is likely contributing to your mildly low platelet count. Please follow up with your PCP and/or your oncologist for this. You also were found to have cysts in your lungs and the [employer] was concerned about lymphoid interstitial pneumonitis. There were some blood tests sent off to work this up and you should follow up with your [facility] Teacher. Total Time Total Time Spent Total Time Spent (In Minutes): 35 min Total Time Includes: Examination of the Patient, Discharge Planning, Medication Reconciliation and Communication With Other Providers (Pulmonology) Coding Level of Care Code 01348 INP/OBS DISCH >30 MIN Diagnoses Acute cholecystitis K81.0 UTI (urinary tract infection) N39.0 SLE (systemic lupus erythematosus) M32.9 Secondary thrombocytopenia D69.59 LIP (lymphoid interstitial pneumonitis) J84.2
[2024-01-25 15:44] VITALS: BP 131/76
== END 2024-01-25 16:13 | disposition home or self-care (01) | DRG 418 ==
LOC: SUATTDRO → ED 04:38 → EDINP 09:06 → 2N 11:13

== ENCOUNTER 2024-02-07 15:40 | Observation (INO) ==
[2024-02-07 16:13] LABS: Basophils # (auto) 0.02 K/uL (0.00-0.20); Basophils % (auto) 0.4 %; Hematocrit (blood only) 39.1 % (37.0-47.0); Hemoglobin 12.9 g/dl (12.0-16.0); Immature Granulocytes # (auto) 0.03 K/uL (0.01-0.20); Immature Granulocytes % (auto) 0.6 %; Lymphocytes # (auto) 0.71 K/uL (1.20-3.40); Lymphocytes % (auto) 14.2 %; Mean Corpuscular Hemoglobin 30.1 pg (25.0-34.0); Mean Corpuscular Volume 91.4 fL (80.0-100.0); Mean Platelet Volume 9.5 fL (9.4-12.4); Monocytes # (auto) 0.37 K/uL (0.11-0.59); Monocytes % (auto) 7.4 %; Neutrophils # (auto) 3.86 K/uL (1.40-6.50); Neutrophils % (auto) 77.4 %; Platelet Count 166 K/uL (130-400); RDW Coefficient of Variation 14.6 % (11.5-14.5); RDW Standard Deviation 49.4 fL (36.4-46.3); Red Blood Count 4.28 M/uL (4.20-5.40); White Blood Count 4.99 K/ul (4.8-10.8)
[2024-02-07] MEDS: HYDROmorphone INJ 0.5 MG/0.5 ML SYR IV PRN ×2 (16:28→21:17)
[2024-02-07] MEDS: ONDANSETRON INJ 2 MG/ML 2 ML VIAL IV STA (16:28)
[2024-02-07 16:34] LABS: Albumin Globulin Ratio 1.1 (0.9-2); Albumin Level 4.4 gm/dl (3.4-5.0); BUN Creatinine Ratio 17.3 (10-20); Bilirubin,Total 0.7 mg/dl (0.2-1.0); Calcium 9.6 mg/dl (8.6-10.3); Creatinine Clr Calc Pharmacy 70.1 ml/min; Globulin 3.9 gm/dl (2.5-4.0); Potassium 3.5 mmol/L (3.5-5.1); Total Protein 8.3 gm/dl (6.0-8.3)
[2024-02-07 16:40] LABS: Troponin I High Sensitivity 4.1 pg/ml (0-14)
--- NOTE | 2024-02-07 17:03 | Emergency Department Note ---
Impression & Plan Left-sided chest pain, Acute right flank pain, UTI (urinary tract infection), Hydronephrosis, Ureteral stent retained ED Provider Note NAME: MARII BERNABE AGE: 63 SEX: Female INFORMANT: Patient ED PROVIDER(S): Horace Taylor MD CHIEF COMPLAINT: Left chest pain, right flank pain PLAN: Disposition: Admitted Outpatient prescription management: none Referral: None MEDICAL DECISION MAKING: Patient presented because of left-sided chest pain and right flank pain. Workup was initiated. Patient had no evidence of pneumothorax on chest x-ray. Her CBC and chemistry panels were unremarkable. Cardiac troponin was negative. CT imaging of the chest and abdomen pelvis were performed. No acute process noted within the chest. CT scan of the abdomen pelvis reveals postsurgical changes regarding her recent cholecystectomy but also marked hydronephrosis and indwelling ureteral stent on the right side. This does raise concerns that the stent may be occluded. Urinalysis did reveal some findings concerning for infection. Discussed the findings with Dr. Brunner of urology. He recommended the patient be n.p.o. and will evaluate her for management tomorrow. Patient was treated with Rocephin, Dilaudid and Zofran. Consultation was made with Dr. Teddy Colunga of the [facility] service. Patient was evaluated in the ER for further management. Care/management discussed with: ED case management, internal medicine, urology Level of care consideration(s): After review of the information above and other included data, I feel the patient requires escalation of care to admission Triage Nursing notes: reviewed and agree them. Vital Signs: reviewed and remarkable for no significant abnormalities Additional History obtained from: none Chronic Medical/Social Conditions affecting care: Indwelling ureteral stent, recent cholecystectomy Prior/ Outside/ External records reviewed: none Differential Diagnosis: Cardiac ischemia, aortic dissection, pulmonary embolism, pneumothorax, pneumonia, pericarditis, myocarditis, esophageal rupture, GERD, cholecystitis, pancreatitis, musculoskeletal, complication of ureteral stent, UTI, kidney stone, complication of recent gallbladder surgery as well as other pathologies. Diagnostics, independently interpreted by me: ECG: Twelve-lead ECG was sinus rhythm with PVCs and left atrial argument at [address] elevation or depression Cardiac Monitoring: Cardiac monitoring ordered by me: The patient was placed on continuous cardiac monitoring and observed. It revealed a sinus rhythm at 95 bpm with occasional PVC. Medical decision rules: none Imaging studies: Chest x-ray. Findings: A chest x-ray was performed and revealed no pneumothorax, effusion, infiltrate, pulmonary edema, free air under the diaphragm, or wide mediastinum. Impression: No acute disease. I refer you to the EMR for further details. HPI: 63 year old Female arrives for evaluation of left chest pain. This started overnight and gradually worsened throughout the day. Rated pain as a 9. It is worse with breathing. Patient has history of pneumothorax after lung biopsy years ago. She also notes having pulmonary nodules. Patient had her gallbladder out 2 weeks ago. She also has a right ureteral stent. She notes since the chest pain started on the left side today she also developed right flank pain. Pt denies LOC, headache, fevers, chills, diaphoresis, visual changes, neck pain, nausea, vomiting, left abdominal pain, left back pain, melena, hematochezia, urinary symptoms, numbness, weakness, lymphadenopathy, rash, or other complaints. PAST MEDICAL HISTORY: See Below, rectal cancer, kidney stone PAST SURGICAL HISTORY: See Below, cholecystectomy, right ureteral stent SOCIAL HISTORY: See Below, HOME MEDICATIONS: See Below ALLERGIES: See Below VITALS: See Below PHYSICAL EXAMINATION: GENERAL: Awake, alert, w uncomfortable ell-appearing, in no distress HENT: Normocephalic, atraumatic. Oropharynx unremarkable. EYES: Normal conjunctiva. Sclera non-icteric. NECK: Inspection normal. Non-tender. Supple. No nuchal rigidity. FROM. No masses. RESPIRATORY: Clear to auscultation. No wheezes. No rales. Normal respiratory effort. CARDIAC: Normal rate. Normal rhythm. No murmurs. No rubs. Extremities warm and well perfused. Pulses equal. No JVD. GI: Soft, non-distended. Right flank tenderness to palpation. No rebound or guarding. No masses. RECTAL: Deferred. MUSCULOSKELETAL: Atraumatic. Chest examination reveals no tenderness. The back is symmetrical on inspection without obvious abnormality. There is right CVA tenderness to palpation. No joint edema. LOWER EXTREMITIES: Calves are equal size bilaterally and non-tender. No edema. No discoloration. NEURO: Normal sensorium. No sensory or motor deficits noted. SKIN: No rash or jaundice noted. PROCEDURES: none CRITICAL CARE: none OBSERVATION NOTE: none Past Med/Surg History Problem List Ureteral stent retained (Acute) Hydronephrosis (Acute) Acute right flank pain (Acute) Left-sided chest pain (Acute) UTI (urinary tract infection) (Acute) Sjogrens syndrome LIP (lymphoid interstitial pneumonitis) ILD (interstitial lung disease) Multiple idiopathic pulmonary cysts Anxiety Chest pain Enterococcal bacteremia Colostomy status SLE (systemic lupus erythematosus) Secondary thrombocytopenia Pancytopenia History of creation of ostomy (Acute) Medical History Acute cholecystitis Sepsis Ureterolithiasis Hydronephrosis Ureteral calculi Renal colic on right side Nephrolithiasis Raynaud's disease Medullary sponge kidney Panic disorder Hypothyroidism Anal cancer Surgical History Hx laparoscopic cholecystectomy (01/24/24) Laparoscopic Cholecystectomy(Not Applicable)please add difficulty modifier - Pipe De Guzman DO H/O breast biopsy H/O dilation and curettage S/P tonsillectomy and adenoidectomy H/O wrist surgery H/O ventral hernia repair H/O colectomy Family History Other Family history non-contributory Social History Smoking Status: Never smoker Tobacco Type: Cigarettes Second Hand Exposure: Yes; Do You Dip or Chew Tobacco: No; Hx Alcohol Use: No Hx Substance Use: No Preferred Language: [place] Communication Ability: Effective Visual Impairment: No Limitations Bondactor Machine Operator Required: No Beliefs That Will Affect Care: None Current Living Situation: Spouse Feels Safe at Home: Yes Safety Concerns: Feels Safe At This Time Assistive Devices: None Allergies Allergies Allergy/AdvReac Type Severity Reaction Status Date / Time moxifloxacin [From Avelox] Allergy Severe Rash Verified 12/03/23 13:07 Penicillins Allergy Severe Hives Verified 12/03/23 13:07 Sulfa (Sulfonamide Allergy Severe Brain/Head Verified 12/03/23 13:07 Antibiotics) pressure cefoxitin Allergy Unknown Unknown Verified 12/03/23 13:07 vancomycin Allergy Unknown Unknown Verified 12/03/23 13:07 acetaminophen [From Tylenol] AdvReac Unknown Fever Verified 12/03/23 13:07 Antihistamines - Alkylamine AdvReac "skin Verified 12/03/23 13:07 crawling" with antihistamines Home Meds Home Medications Medication Instructions Recorded Confirmed calcium 600 mg (as 1 tab PO DAILY 10/26/23 02/07/24 carbonate)-vitamin D3 10 mcg (400 unit) tablet (Calcium 600 + D(3)) carboxymethylcellulose 1 drp ophthalmic (eye) BID 10/26/23 02/07/24 sod-hypromell 0.25 %-0.3 % eye liquid gel drops carboxymethylcellulose sodium 1 % 1 drp ophthalmic (eye) BID 10/26/23 02/07/24 eye gel in a dropperette (TheraTears) clonazepam 1 mg tablet 1 mg PO TID Anxiety/Insomnia 10/26/23 02/07/24 docusate sodium 100 mg capsule 200 mg PO DAILY 10/26/23 02/07/24 (Colace) levothyroxine 25 mcg tablet 25 mcg PO DAILYBB 10/26/23 02/07/24 naloxone 4 mg/actuation nasal spray 4 mg intranasal UD PRN Other 10/26/23 02/07/24 omeprazole 20 mg capsule,delayed 20 mg PO QAM 10/26/23 02/07/24 release oxycodone 5 mg tablet 5 mg PO Q4 PRN Severe Pain (Scale 10/26/23 02/07/24 Score 7-10) prednisone 1 mg tablet 2 mg PO DAILY 10/26/23 02/07/24 tamsulosin 0.4 mg capsule 0.4 mg PO DAILY PRN Other 10/26/23 02/07/24 gabapentin 300 mg capsule 300 mg PO UD 01/23/24 02/07/24 potassium citrate-citric acid 5 ml PO DAILY 01/23/24 02/07/24 1,100 mg-334 mg/5 mL oral solution prednisolone acetate 1 % eye 1 drp ophthalmic (eye) UD 01/23/24 02/07/24 drops,suspension Previous Rx's Medication Instructions Recorded cyanocobalamin (vitamin B-12) 1,000 mcg PO DAILY #30 caps 11/18/23 1,000 mcg capsule phenazopyridine 100 mg tablet 100 mg PO Q8H PRN bladder spasms 09/17/24 (Pyridium) #14 tabs prednisone 10 mg tablet 20 mg (2 x 10 mg) PO DAILY #3 tabs 01/25/24 Results & Data (ED) Vital Signs Vital Signs - 24 hr 02/07/24 15:46 02/07/24 16:20 02/07/24 16:20 Temperature 36.3 C L Temperature Source Temporal Artery Scan Pulse Rate 94 H Pulse Rate [Apical] 90 Respiratory Rate 20 16 Blood Pressure 92/57 L Blood Pressure [Left Arm] 105/69 Blood Pressure Mean 68 Blood Pressure Mean [Left Arm] 81 Pulse Oximetry 97 100 100 Oxygen Delivery Method Room Air Room Air Sepsis Recent Fever Within 48 Hours No Sepsis New/Unexplained Change in Mental Status N/A Sepsis Action Taken by Nursing No Action Required 02/07/24 17:04 02/07/24 19:00 Temperature Temperature Source Pulse Rate Pulse Rate [Apical] 84 94 H Respiratory Rate 18 18 Blood Pressure Blood Pressure [Left Arm] 107/66 125/91 Blood Pressure Mean Blood Pressure Mean [Left Arm] 79 102 Pulse Oximetry 99 98 Oxygen Delivery Method Sepsis Recent Fever Within 48 Hours Sepsis New/Unexplained Change in Mental Status Sepsis Action Taken by Nursing Laboratory Data 02/07/24 16:03 02/07/24 16:03 Lab Results 02/07/24 02/07/24 Range/Units 16:03 19:00 WBC 4.99 (4.8-10.8) K/ul RBC 4.28 (4.20-5.40) M/uL Hgb 12.9 (12.0-16.0) g/dl Hct 39.1 (37.0-47.0) % MCV 91.4 (80.0-100.0) fL MCH 30.1 (25.0-34.0) pg MCHC 33.0 (32.0-36.0) g/dL RDW Std Deviation 49.4 H (36.4-46.3) fL RDW Coeff of Bertha 14.6 H (11.5-14.5) % Plt Count 166 (130-400) K/uL MPV 9.5 (9.4-12.4) fL Immature Gran % (Auto) 0.6 % Neut % (Auto) 77.4 % Lymph % (Auto) 14.2 % Harris % (Auto) 7.4 % Eos % (Auto) 0.0 % Baso % (Auto) 0.4 % Neut # (Auto) 3.86 (1.40-6.50) K/uL Lymph # (Auto) 0.71 L (1.20-3.40) K/uL Harris # (Auto) 0.37 (0.11-0.59) K/uL Eos # (Auto) 0.00 (0.00-0.50) K/uL Baso # (Auto) 0.02 (0.00-0.20) K/uL Immature Gran # (Auto) 0.03 (0.01-0.20) K/uL Sodium 136 (136-145) mmol/L Potassium 3.5 (3.5-5.1) mmol/L Chloride 103 (98-107) mmol/L Carbon Dioxide 27 (21-32) mmol/L Anion Gap 6 (3-11) BUN 14 (6-23) mg/dl Creatinine 0.81 (0.6-1.2) mg/dl Est Cr Clr Drug Dosing 70.1 ml/min eGFR 82.02 BUN/Creatinine Ratio 17.3 (10-20) Glucose 108 H (70-99(Fasting)) mg/dl Calcium 9.6 (8.6-10.3) mg/dl Total Bilirubin 0.7 (0.2-1.0) mg/dl AST 20 (13-39) U/L ALT 19 (7-52) U/L Alkaline Phosphatase 81 (34-104) U/L Troponin I High Sens 4.1 (0-14) pg/ml Total Protein 8.3 (6.0-8.3) gm/dl Albumin 4.4 (3.4-5.0) gm/dl Globulin 3.9 (2.5-4.0) gm/dl Albumin/Globulin Ratio 1.1 (0.9-2) Lipase 28 (11-82) U/L Urine Color Yellow Urine Appearance Clear (Clear) Urine pH 6.5 (4.5-7.5) Ur Specific [place] > 1.045 H (1.000-1.030) Urine Protein 1+ H (Negative) Urine Glucose (UA) Negative (Negative) Urine Ketones Negative (Negative) Urine Blood 1+ H (Negative) Urine Nitrite Negative (Negative) Urine Bilirubin Negative (Negative) Urine Urobilinogen Negative (Negative) Ur Leukocyte Esterase 2+ H (Negative) Urine WBC (Auto) >50 H (0-5) /hpf Urine RBC (Auto) 11-20 H (0-2) /hpf U Hyaline Cast (Auto) 3-5 H (0-2) /lpf U Epithel Cells (Auto) 0-2 (0-2) /hpf Urine Bacteria (Auto) None Seen (None Seen) Administered Medications Clonazepam (Clonazepam 1 Mg Tab) 1 mg PO TID [facility] Stop: 03/08/24 20:59 Last Admin: 02/07/24 21:17 Dose: 1 mg Documented By: KIESHA Hydromorphone HCl (Hydromorphone Inj 0.5 Mg/0.5 Ml Syr) 0.5 mg IV Q3H PRN PRN Reason: Pain (6,7,8,9,10) Stop: 02/21/24 21:08 Last Admin: 02/07/24 21:17 Dose: 0.5 mg Documented By: KIESHA Sodium Chloride (Nss) 1,000 mls @ 80 mls/hr IV .[id number] [facility] Stop: 02/08/24 21:41 Last Admin: 02/07/24 20:57 Dose: 80 mls/hr Documented By: KIESHA Ketorolac Tromethamine (Ketorolac Tromethamine 15 Mg/Ml Vial) 15 mg IV Q6H PRN PRN Reason: Pain Stop: 02/12/24 21:57 Last Admin: 02/07/24 22:32 Dose: 15 mg Documented By: KIESHA Ondansetron HCl (Ondansetron Inj 2 Mg/Ml 2 Ml Vial) 4 mg IV Q6H PRN PRN Reason: Nausea And Vomiting Stop: 03/08/24 20:41 Last Admin: 02/07/24 21:20 Dose: 4 mg Documented By: KIESHA Discontinued Medications Hydromorphone HCl (Hydromorphone Inj 0.5 Mg/0.5 Ml Syr) 0.5 mg IV Q15M PRN PRN Reason: Pain Stop: 02/21/24 16:21 Last Admin: 02/07/24 19:02 Dose: 0.5 mg Documented By: Admin: 02/07/24 17:36 Dose: 0.5 mg Documented By: Admin: 02/07/24 16:51 Dose: 0.5 mg Documented By: Admin: 02/07/24 16:28 Dose: 0.5 mg Documented By: SERINA Ceftriaxone Sodium (Rocephin) 2,000 mg in 50 mls @ 100 mls/hr IV NOW STA Stop: 02/07/24 20:09 Last Infusion: 02/07/24 20:51 Dose: Infused Documented By: Admin: 02/07/24 20:21 Dose: 100 mls/hr Documented By: COLTON Ioversol (Optiray 320 125ml) 115 ml IV ONCE ONE Stop: 02/07/24 17:24 Last Admin: 02/07/24 17:23 Dose: 115 ml Documented By: EDK Morphine Sulfate (Morphine Sulfate 4 Mg/Ml 1 Ml Carp\\Vial) 4 mg IV Q3H PRN PRN Reason: Pain (6,7,8,9,10) Stop: 02/21/24 20:41 Last Admin: 02/07/24 20:57 Dose: 4 mg Documented By: KIESHA Ondansetron HCl (Ondansetron Inj 2 Mg/Ml 2 Ml Vial) 4 mg IV NOW STA Stop: 02/07/24 16:23 Last Admin: 02/07/24 16:28 Dose: 4 mg Documented By: SERINA Imaging Data Radiologist's Impression: Chest X-Ray 02/07/24 16:03 EXAM: Radiograph of the Chest 1 View INDICATION: Chest pain. TECHNIQUE: Frontal view of the chest. COMPARISON: 01/23/2024 FINDINGS: Lungs and pleural spaces: Left basilar opacity seen on the prior axial CT images was not well-seen on the heart coordinator radiograph and the appearance is stable. Stable vascular congestion allowing for vascular crowding from shallow inspiration. Stable left upper lobe opacities and calcifications. Decreased conspicuity of left lower lobe groundglass opacity seen on the prior CT. No pleural effusion or pneumothorax. Heart: Shape and configuration within normal limits allowing for technique. Mediastinum: Normal contour. Bones/joints: No fracture, erosion or dislocation. Soft tissues: No abnormality noted. No radiopaque foreign body noted. Upper abdomen: No abnormality noted. IMPRESSION: 1. Left basilar opacity seen on the prior axial CT images was not well-seen on the heart coordinator radiograph and the appearance is stable. Left basilar infiltrate may be underestimated. 2. Stable vascular congestion and scattered opacities which were seen on the recent CT. ACT 112: Negative or not required by law. Electronically signed by MilnerJacqui 02-07-2024 5:09 PM Abdomen/Pelvis CT 02/07/24 16:23 EXAM: CT Abdomen and Pelvis With Intravenous Contrast INDICATION: Right flank and left chest pain. Recent cholecystectomy. TECHNIQUE: Axial computed tomography images of the abdomen and pelvis with intravenous contrast. Sagittal and coronal reformatted images were created and reviewed. This CT exam was performed using one or more of the following dose reduction techniques: automated exposure control, adjustment of the mA and/or kV according to patient size, and/or use of iterative reconstruction technique. CONTRAST: 115ml of Optiray 320 was administered intravenously. COMPARISON: 01/24/2024 FINDINGS: Limitations: None. Lung bases: Basilar atelectasis present. Pleural space: No basilar pleural effusion. Heart: No abnormality noted. Mediastinum: No abnormality noted. ABDOMEN: Liver: Normal size and contour. Hypodense typical of steatosis. No mass or ductal dilation. Gallbladder and bile ducts: Cholecystectomy. There is fluid and some dense material in the gallbladder fossa which could reflect hemostatic material. The common bile duct is about 8 mm with no evident ductal stone. Pancreas: Homogeneous enhancement. No mass, inflammation or ductal dilation. Spleen: Stable splenomegaly. Adrenals: No significant abnormality noted. Kidneys and ureters: There is now moderate to severe right hydroureteronephrosis with stent in good position. There are multiple small stones in each kidney. Small benign-appearing simple renal cysts present for which no further assessment required. Stomach and bowel: No distension or mucosal thickening. No inflammation noted. PELVIS: Appendix: No findings to suggest acute appendicitis. Bladder: No filling defects to suggest mass or large stone. No inflammation. Reproductive: No abnormalities noted. ABDOMEN and PELVIS: Intraperitoneal space: Small amounts of layering fluid in the pelvis. No abscess. No free air. Bones/joints: Stable diffuse osseous demineralization. No acute osseous abnormality. Soft tissues: Mild edema of the midline subcutaneous fat above the umbilicus at the trocar site. No abdominal wall fluid collection. Sigmoid resection staple line noted. There is a long Longoria's pouch. There is a left lower quadrant colostomy with small parastomal fat-containing hernia and stable left abdominal wall mesh. No intestinal obstruction. Vasculature: No abdominal aortic aneurysm. Lymph nodes: No pathologically enlarged lymph nodes. IMPRESSION: 1. There is edema, mild fluid and some dense material in the cholecystectomy bed which could reflect some admixed blood and/or hemostatic material. There is no organized or drainable collection. 2. There is now moderate to severe right hydroureteronephrosis with ureteral stent in place. Nonobstructing kidney stones present. ACT 112: Negative or not required by law. Electronically signed by Jacqui Milner 02-07-2024 5:47 PM Chest CTA 02/07/24 16:23 EXAM: CT Angiography Chest With Intravenous Contrast INDICATION: Right flank pain. Recent cholecystectomy. TECHNIQUE: Axial computed tomographic angiography images of the chest with intravenous contrast. Sagittal and coronal reformatted images were created and reviewed. This CT exam was performed using one or more of the following dose reduction techniques: automated exposure control, adjustment of the mA and/or kV according to patient size, and/or use of iterative reconstruction technique. MIP reconstructed images were created and reviewed. CONTRAST: 115ml of Optiray 320 was administered intravenously. COMPARISON: 01/23/2024 FINDINGS: Pulmonary arteries: No abnormality noted. No pulmonary embolism. Aorta: No acute change noted. No thoracic aortic aneurysm or dissection. Lungs and pleural spaces: Stable scarring in the right apex. Stable partially calcified nodule in the left upper lobe measuring roughly 0.8 x 0.4 cm. Stable approximate 3 x 5 mm noncalcified right middle lobe pulmonary nodule. Stable cystic and groundglass opacity measuring approximately 2.2 cm diameter in the left lower lobe. Stable scattered centrilobular cysts and apical bulla. There is bilateral lower lobe airway thickening and atelectasis. No pleural effusion or pneumothorax. Heart: No abnormality noted. No cardiomegaly. No significant pericardial effusion. No evidence of RV dysfunction. Bones/joints: Heterogeneous osseous demineralization noted. No acute osseous abnormality. Soft tissues: No abnormality noted. Lymph nodes: No abnormality noted. No enlarged lymph nodes. IMPRESSION: 1. No pulmonary embolus or acute abnormality. 2. Stable chronic pulmonary changes. ACT 112: Negative or not required by law. Electronically signed by Jacqui Milner 02-07-2024 5:58 PM Discharge Plan Visit Data Chief Complaint: Flank Pain Stated Complaint: LT SIDE FLANK PAIN, HURTS TO BREATH, RT KIDNEY SHERIDAN ED Provider: Horace Taylor Discharge Problem: Left-sided chest pain, Acute right flank pain, UTI (urinary tract infection), Hydronephrosis, Ureteral stent retained Patient Disposition: Admitted As Inpatient Discharge Instructions Interventions: ED Discharge Assessment Last Done: 02/07/24 20:30
--- NOTE | 2024-02-07 17:09 | XRay Report ---
EXAM: Radiograph of the Chest 1 View INDICATION: Chest pain. TECHNIQUE: Frontal view of the chest. COMPARISON: 01/23/2024 FINDINGS: Lungs and pleural spaces: Left basilar opacity seen on the prior axial CT images was not well-seen on the second chef radiograph and the appearance is stable. Stable vascular congestion allowing for vascular crowding from shallow inspiration. Stable left upper lobe opacities and calcifications. Decreased conspicuity of left lower lobe groundglass opacity seen on the prior CT. No pleural effusion or pneumothorax. Heart: Shape and configuration within normal limits allowing for technique. Mediastinum: Normal contour. Bones/joints: No fracture, erosion or dislocation. Soft tissues: No abnormality noted. No radiopaque foreign body noted. Upper abdomen: No abnormality noted. IMPRESSION: 1. Left basilar opacity seen on the prior axial CT images was not well-seen on the second chef radiograph and the appearance is stable. Left basilar infiltrate may be underestimated. 2. Stable vascular congestion and scattered opacities which were seen on the recent CT. ACT 112: Negative or not required by law. Electronically signed by Jacqui Milner 02-07-2024 5:09 PM
[2024-02-07] MEDS: OPTIRAY 320 125ml IV ONE (17:23)
--- NOTE | 2024-02-07 17:47 | CT Scan Report ---
EXAM: CT Abdomen and Pelvis With Intravenous Contrast INDICATION: Right flank and left chest pain. Recent cholecystectomy. TECHNIQUE: Axial computed tomography images of the abdomen and pelvis with intravenous contrast. Sagittal and coronal reformatted images were created and reviewed. This CT exam was performed using one or more of the following dose reduction techniques: automated exposure control, adjustment of the mA and/or kV according to patient size, and/or use of iterative reconstruction technique. CONTRAST: 115ml of Optiray 320 was administered intravenously. COMPARISON: 01/24/2024 FINDINGS: Limitations: None. Lung bases: Basilar atelectasis present. Pleural space: No basilar pleural effusion. Heart: No abnormality noted. Mediastinum: No abnormality noted. ABDOMEN: Liver: Normal size and contour. Hypodense typical of steatosis. No mass or ductal dilation. Gallbladder and bile ducts: Cholecystectomy. There is fluid and some dense material in the gallbladder fossa which could reflect hemostatic material. The common bile duct is about 8 mm with no evident ductal stone. Pancreas: Homogeneous enhancement. No mass, inflammation or ductal dilation. Spleen: Stable splenomegaly. Adrenals: No significant abnormality noted. Kidneys and ureters: There is now moderate to severe right hydroureteronephrosis with stent in good position. There are multiple small stones in each kidney. Small benign-appearing simple renal cysts present for which no further assessment required. Stomach and bowel: No distension or mucosal thickening. No inflammation noted. PELVIS: Appendix: No findings to suggest acute appendicitis. Bladder: No filling defects to suggest mass or large stone. No inflammation. Reproductive: No abnormalities noted. ABDOMEN and PELVIS: Intraperitoneal space: Small amounts of layering fluid in the pelvis. No abscess. No free air. Bones/joints: Stable diffuse osseous demineralization. No acute osseous abnormality. Soft tissues: Mild edema of the midline subcutaneous fat above the umbilicus at the trocar site. No abdominal wall fluid collection. Sigmoid resection staple line noted. There is a long Longoria's pouch. There is a left lower quadrant colostomy with small parastomal fat-containing hernia and stable left abdominal wall mesh. No intestinal obstruction. Vasculature: No abdominal aortic aneurysm. Lymph nodes: No pathologically enlarged lymph nodes. IMPRESSION: 1. There is edema, mild fluid and some dense material in the cholecystectomy bed which could reflect some admixed blood and/or hemostatic material. There is no organized or drainable collection. 2. There is now moderate to severe right hydroureteronephrosis with ureteral stent in place. Nonobstructing kidney stones present. ACT 112: Negative or not required by law. Electronically signed by Jacqui Milner 02-07-2024 5:47 PM
--- NOTE | 2024-02-07 17:58 | CT Scan Report ---
EXAM: CT Angiography Chest With Intravenous Contrast INDICATION: Right flank pain. Recent cholecystectomy. TECHNIQUE: Axial computed tomographic angiography images of the chest with intravenous contrast. Sagittal and coronal reformatted images were created and reviewed. This CT exam was performed using one or more of the following dose reduction techniques: automated exposure control, adjustment of the mA and/or kV according to patient size, and/or use of iterative reconstruction technique. MIP reconstructed images were created and reviewed. CONTRAST: 115ml of Optiray 320 was administered intravenously. COMPARISON: 01/23/2024 FINDINGS: Pulmonary arteries: No abnormality noted. No pulmonary embolism. Aorta: No acute change noted. No thoracic aortic aneurysm or dissection. Lungs and pleural spaces: Stable scarring in the right apex. Stable partially calcified nodule in the left upper lobe measuring roughly 0.8 x 0.4 cm. Stable approximate 3 x 5 mm noncalcified right middle lobe pulmonary nodule. Stable cystic and groundglass opacity measuring approximately 2.2 cm diameter in the left lower lobe. Stable scattered centrilobular cysts and apical bulla. There is bilateral lower lobe airway thickening and atelectasis. No pleural effusion or pneumothorax. Heart: No abnormality noted. No cardiomegaly. No significant pericardial effusion. No evidence of RV dysfunction. Bones/joints: Heterogeneous osseous demineralization noted. No acute osseous abnormality. Soft tissues: No abnormality noted. Lymph nodes: No abnormality noted. No enlarged lymph nodes. IMPRESSION: 1. No pulmonary embolus or acute abnormality. 2. Stable chronic pulmonary changes. ACT 112: Negative or not required by law. Electronically signed by Jacqui Milner 02-07-2024 5:58 PM
[2024-02-07 19:26] LABS: Appearance Urine Clear (Clear); Bacteria Urine Automated None Seen (None Seen); Bilirubin Urine Negative (Negative); Blood Urine 1+ (Negative); Color Urine Yellow; Epithelial Cell Urine Auto 0-2 /hpf (0-2); Glucose Urine UA Negative (Negative); Ketones Urine Negative (Negative); Leukocyte Esterase Urine 2+ (Negative); Nitrite Urine Negative (Negative); Protein Urine 1+ (Negative); Specific Gravity Urine > 1.045 (1.000-1.030); Urobilinogen Urine Negative (Negative); WBC Urine Automated >50 /hpf (0-5); pH Urine 6.5 (4.5-7.5)
[2024-02-07] MEDS: cefTRIAXone SODIUM 2,000 MG/50 ML BAG IV STA (20:21)
[2024-02-07] MEDS ORDERED: ACETAMINOPHEN 325 MG TAB PO PRN (20:42)
[2024-02-07] MEDS ORDERED: PHENAZOPYRIDINE HCL 100 MG TAB PO PRN (20:42)
[2024-02-07] MEDS ORDERED: GABAPENTIN 300 MG CAP PO SCH (20:42)
[2024-02-07] MEDS ORDERED: MoRPHine SULFATE 2 MG/ML CARP IV PRN (20:42)
[2024-02-07] MEDS: MoRPHine SULFATE 4 MG/ML 1 ML CARP\\VIAL IV PRN (20:57)
[2024-02-07] MEDS: SODIUM CHLORIDE 0.9% 1,000 ML IV SCH (20:57)
[2024-02-07] MEDS ORDERED: HYDROmorphone INJ 0.5 MG/0.5 ML SYR IV PRN (21:09)
[2024-02-07] MEDS: clonazePAM 1 MG TAB PO SCH (21:17)
[2024-02-07] MEDS: ONDANSETRON INJ 2 MG/ML 2 ML VIAL IV PRN (21:20)
--- NOTE | 2024-02-07 21:29 | History & Physical Report ---
Date of Service February 07, 2024 Assessment & Plan (1) Acute right flank pain: Plan: Patient with right ureteral stent in place. Recent Klebsiella UTI s/p completion of antibiotic course. Patient with moderate to severe right hydroureteronephrosis with ureteral stent in place and nonobstructing kidney stones present. Patient reports voiding without difficulty. No dysuria. Patient with some blood and WBC present on UA, no bacteria. -Observation to medical -Dilaudid PRN pain -Zofran PRN nausea -Urology consultation appreciated -Continue Flomax -Continue Pyridium -Gentle IVF with NSS at 80mL/hr x 2L (2) Left-sided chest pain: Plan: Patient with pleuritic pain in her left chest, progressive throughout the day. CTA with no PE or acute abnormality. Troponin is unremarkable. ?Pleurisy - patient with history of the same x 2 episodes involving the left lung. She also had a pneumothorax on the right side in the past as well. -Toradol PRN (3) SLE (systemic lupus erythematosus): Plan: Chronic. Patient with Sjogren's as well, on chronic prednisone therapy. Stable -Continue Prednisone 2mg po daily -Low threshold to start stress dose steroids should patient's blood pressure drop Plan Chronic Medical Conditions: Hypothyroidism -Continue Synthroid Admission and Anticipated Discharge Date Admission Date: February 07, 2024 History of Present Illness Chief Complaint: left sided chest pain and right flank pain Primary Care Provider: DO Gilma Richard Grzegorz is a 63yo female with history of anal cancer with colostomy in place, Sjogren's syndrome, medullary sponge kidney. Patient was recently admitted to [facility] from 01/22 - 01/24 after presenting with acute right sided chest pain. Patient found to have acute cholecystitis s/p laparoscopic cholecystectomy performed by Dr. De Guzman on 01/24/24. Patient also with Klebsiella UTI. She has an indwelling right ureteral stent in place. No hydronephrosis noted at that time. Patient was ultimately discharged home on Cefdinir 300mg po BID x 4 days which she has completed. She returns today with ongoing left sided pleuritic chest pain. She woke with the pain this morning and it has progressed throughout the day. She also has some discomfort in the right flank. She has an appointment with Urology in three weeks to discuss stent management. Patient afebrile, HD stable in the ER. ER Course: Dilaudid 0.5mg Zorfran 4mg Dilaudid 0.5mg Ceftriaxone 2gm Morphine 4mg IV Allergies Allergy/AdvReac Type Severity Reaction Status Date / Time moxifloxacin [From Avelox] Allergy Severe Rash Verified 12/03/23 13:07 Penicillins Allergy Severe Hives Verified 12/03/23 13:07 Sulfa (Sulfonamide Allergy Severe Brain/Head Verified 12/03/23 13:07 Antibiotics) pressure cefoxitin Allergy Unknown Unknown Verified 12/03/23 13:07 vancomycin Allergy Unknown Unknown Verified 12/03/23 13:07 acetaminophen [From Tylenol] AdvReac Unknown Fever Verified 12/03/23 13:07 Antihistamines - Alkylamine AdvReac "skin Verified 12/03/23 13:07 crawling" with antihistamines Home Medications Medication Instructions Recorded Confirmed Type calcium 600 mg (as 1 tab PO DAILY 10/26/23 02/07/24 History carbonate)-vitamin D3 10 mcg (400 unit) tablet (Calcium 600 + D(3)) carboxymethylcellulose 1 drp ophthalmic (eye) BID 10/26/23 02/07/24 History sod-hypromell 0.25 %-0.3 % eye liquid gel drops carboxymethylcellulose sodium 1 % 1 drp ophthalmic (eye) BID 10/26/23 02/07/24 History eye gel in a dropperette (TheraTears) clonazepam 1 mg tablet 1 mg PO TID Anxiety/Insomnia 10/26/23 02/07/24 History docusate sodium 100 mg capsule 200 mg PO DAILY 10/26/23 02/07/24 History (Colace) levothyroxine 25 mcg tablet 25 mcg PO DAILYBB 10/26/23 02/07/24 History naloxone 4 mg/actuation nasal spray 4 mg intranasal UD PRN Other 10/26/23 02/07/24 History omeprazole 20 mg capsule,delayed 20 mg PO QAM 10/26/23 02/07/24 History release oxycodone 5 mg tablet 5 mg PO Q4 PRN Severe Pain (Scale 10/26/23 02/07/24 History Score 7-10) prednisone 1 mg tablet 2 mg PO DAILY 10/26/23 02/07/24 History tamsulosin 0.4 mg capsule 0.4 mg PO DAILY PRN Other 10/26/23 02/07/24 History cyanocobalamin (vitamin B-12) 1,000 mcg PO DAILY #30 caps 11/18/23 02/07/24 Rx 1,000 mcg capsule phenazopyridine 100 mg tablet 100 mg PO Q8H PRN bladder spasms 11/18/23 02/07/24 Rx (Pyridium) #14 tabs gabapentin 300 mg capsule 300 mg PO UD 01/23/24 02/07/24 History potassium citrate-citric acid 5 ml PO DAILY 01/23/24 02/07/24 History 1,100 mg-334 mg/5 mL oral solution prednisolone acetate 1 % eye 1 drp ophthalmic (eye) UD 01/23/24 02/07/24 History drops,suspension prednisone 10 mg tablet 20 mg (2 x 10 mg) PO DAILY #3 tabs 01/25/24 02/07/24 Rx Past Med/Surg History Problem List Acute right flank pain (Acute) Left-sided chest pain (Acute) UTI (urinary tract infection) Sjogrens syndrome LIP (lymphoid interstitial pneumonitis) ILD (interstitial lung disease) Multiple idiopathic pulmonary cysts Anxiety Chest pain Enterococcal bacteremia Colostomy status SLE (systemic lupus erythematosus) Secondary thrombocytopenia Pancytopenia History of creation of ostomy (Acute) Medical History Acute cholecystitis Sepsis Ureterolithiasis Hydronephrosis Ureteral calculi Renal colic on right side Nephrolithiasis Raynaud's disease Medullary sponge kidney Panic disorder Hypothyroidism Anal cancer Surgical History Hx laparoscopic cholecystectomy (01/24/24) Laparoscopic Cholecystectomy(Not Applicable)please add difficulty modifier - Pipe De Guzman DO H/O breast biopsy H/O dilation and curettage S/P tonsillectomy and adenoidectomy H/O wrist surgery H/O ventral hernia repair H/O colectomy Family History Other Family history non-contributory Social History Smoking Status: Former smoker Tobacco Type: Cigarettes Second Hand Exposure: Yes; Do You Dip or Chew Tobacco: No; Hx Alcohol Use: No Hx Substance Use: No Preferred Language: Chinese Communication Ability: Effective Visual Impairment: No Limitations Manager Story Required: No Beliefs That Will Affect Care: None Current Living Situation: Spouse Feels Safe at Home: Yes Assistive Devices: None Review of Systems Review of Systems: All systems reviewed & are unremarkable except as noted in HPI & below Physical Exam Physical Exam: General: patient resting comfortably, NAD, non-toxic in appearance, AA&O x 4 Skin: warm, dry, intact, no rashes or lesions HEENT: NC/AT, PERRL, EOMI, anicteric sclera, conjunctiva without injection, external ear normal to inspection and nontender, nares patent, moist mucus membranes, dentition intact, no oropharyngeal lesions, neck supple, trachea midline, no LAD, no thyromegaly, no JVD Heart: +S1/S2, regular, no m/r/g Lungs: equal air entry bilaterally, no rales/rhonchi/wheezes Abd: +BS, soft, laparoscopic sites well approximated with no erythema, drainage or dehiscence, colostomy in place with healthy appearing stoma Ext: warm, 2+ pulses in UE/LE bilaterally, no clubbing/cyanosis or edema Neuro: nonfocal, patient AA&O x 4, speech intact, no facial droop, moving all extremities on command with equal strength 5/5 Results & Data Results & Data Vital Signs (Past 12 Hours) Vital Signs Temp Pulse Pulse Resp BP BP Pulse Ox 02/07/24 20:20 94 H 18 106/64 98 02/07/24 19:00 94 H 18 125/91 98 02/07/24 17:04 84 18 107/66 99 02/07/24 16:20 100 02/07/24 16:20 90 16 105/69 100 02/07/24 15:46 36.3 C L 94 H 20 92/57 L 97 O2 Del Method 02/07/24 20:20 02/07/24 19:00 02/07/24 17:04 02/07/24 16:20 Room Air 02/07/24 16:20 02/07/24 15:46 Room Air Laboratory Results Laboratory Results WBC 4.99 K/ul (4.8-10.8) 02/07/24 16:03 RBC 4.28 M/uL (4.20-5.40) 02/07/24 16:03 Hgb 12.9 g/dl (12.0-16.0) 02/07/24 16:03 Hct 39.1 % (37.0-47.0) 02/07/24 16:03 MCV 91.4 fL (80.0-100.0) 02/07/24 16:03 MCH 30.1 pg (25.0-34.0) 02/07/24 16:03 MCHC 33.0 g/dL (32.0-36.0) 02/07/24 16:03 RDW Std Deviation 49.4 fL (36.4-46.3) H 02/07/24 16:03 RDW Coeff of Bertha 14.6 % (11.5-14.5) H 02/07/24 16:03 Plt Count 166 K/uL (130-400) 02/07/24 16:03 MPV 9.5 fL (9.4-12.4) 02/07/24 16:03 Immature Gran % (Auto) 0.6 % 02/07/24 16:03 Neut % (Auto) 77.4 % 02/07/24 16:03 Lymph % (Auto) 14.2 % 02/07/24 16:03 [place] % (Auto) 7.4 % 02/07/24 16:03 Eos % (Auto) 0.0 % 02/07/24 16:03 Baso % (Auto) 0.4 % 02/07/24 16:03 Neut # (Auto) 3.86 K/uL (1.40-6.50) 02/07/24 16:03 Lymph # (Auto) 0.71 K/uL (1.20-3.40) L 02/07/24 16:03 [place] # (Auto) 0.37 K/uL (0.11-0.59) 02/07/24 16:03 Eos # (Auto) 0.00 K/uL (0.00-0.50) 02/07/24 16:03 Baso # (Auto) 0.02 K/uL (0.00-0.20) 02/07/24 16:03 Immature Gran # (Auto) 0.03 K/uL (0.01-0.20) 02/07/24 16:03 Sodium 136 mmol/L (136-145) 02/07/24 16:03 Potassium 3.5 mmol/L (3.5-5.1) 02/07/24 16:03 Chloride 103 mmol/L (98-107) 02/07/24 16:03 Carbon Dioxide 27 mmol/L (21-32) 02/07/24 16:03 Anion Gap 6 (3-11) 02/07/24 16:03 BUN 14 mg/dl (6-23) 02/07/24 16:03 Creatinine 0.81 mg/dl (0.6-1.2) 02/07/24 16:03 Est Cr Clr Drug Dosing 70.1 ml/min 02/07/24 16:03 eGFR 82.02 02/07/24 16:03 BUN/Creatinine Ratio 17.3 (10-20) 02/07/24 16:03 Glucose 108 mg/dl (70-99(Fasting)) H 02/07/24 16:03 Calcium 9.6 mg/dl (8.6-10.3) 02/07/24 16:03 Total Bilirubin 0.7 mg/dl (0.2-1.0) 02/07/24 16:03 AST 20 U/L (13-39) 02/07/24 16:03 ALT 19 U/L (7-52) 02/07/24 16:03 Alkaline Phosphatase 81 U/L (34-104) 02/07/24 16:03 Troponin I High Sens 4.1 pg/ml (0-14) 02/07/24 16:03 Total Protein 8.3 gm/dl (6.0-8.3) 02/07/24 16:03 Albumin 4.4 gm/dl (3.4-5.0) 02/07/24 16:03 Globulin 3.9 gm/dl (2.5-4.0) 02/07/24 16:03 Albumin/Globulin Ratio 1.1 (0.9-2) 02/07/24 16:03 Lipase 28 U/L (11-82) 02/07/24 16:03 Urine Color Yellow 02/07/24 19:00 Urine Appearance Clear (Clear) 02/07/24 19:00 Urine pH 6.5 (4.5-7.5) 02/07/24 19:00 Ur Specific [place] > 1.045 (1.000-1.030) H 02/07/24 19:00 Urine Protein 1+ (Negative) H 02/07/24 19:00 Urine Glucose (UA) Negative (Negative) 02/07/24 19:00 Urine Ketones Negative (Negative) 02/07/24 19:00 Urine Blood 1+ (Negative) H 02/07/24 19:00 Urine Nitrite Negative (Negative) 02/07/24 19:00 Urine Bilirubin Negative (Negative) 02/07/24 19:00 Urine Urobilinogen Negative (Negative) 02/07/24 19:00 Ur Leukocyte Esterase 2+ (Negative) H 02/07/24 19:00 Urine WBC (Auto) >50 /hpf (0-5) H 02/07/24 19:00 Urine RBC (Auto) 11-20 /hpf (0-2) H 02/07/24 19:00 U Hyaline Cast (Auto) 3-5 /lpf (0-2) H 02/07/24 19:00 U Epithel Cells (Auto) 0-2 /hpf (0-2) 02/07/24 19:00 Urine Bacteria (Auto) None Seen (None Seen) 02/07/24 19:00 Impressions Chest X-Ray 02/07/24 16:03 EXAM: Radiograph of the Chest 1 View INDICATION: Chest pain. TECHNIQUE: Frontal view of the chest. COMPARISON: 01/23/2024 FINDINGS: Lungs and pleural spaces: Left basilar opacity seen on the prior axial CT images was not well-seen on the steam box operator radiograph and the appearance is stable. Stable vascular congestion allowing for vascular crowding from shallow inspiration. Stable left upper lobe opacities and calcifications. Decreased conspicuity of left lower lobe groundglass opacity seen on the prior CT. No pleural effusion or pneumothorax. Heart: Shape and configuration within normal limits allowing for technique. Mediastinum: Normal contour. Bones/joints: No fracture, erosion or dislocation. Soft tissues: No abnormality noted. No radiopaque foreign body noted. Upper abdomen: No abnormality noted. IMPRESSION: 1. Left basilar opacity seen on the prior axial CT images was not well-seen on the steam box operator radiograph and the appearance is stable. Left basilar infiltrate may be underestimated. 2. Stable vascular congestion and scattered opacities which were seen on the recent CT. ACT 112: Negative or not required by law. Electronically signed by MilnerJacqui 02-07-2024 5:09 PM Abdomen/Pelvis CT 02/07/24 16:23 EXAM: CT Abdomen and Pelvis With Intravenous Contrast INDICATION: Right flank and left chest pain. Recent cholecystectomy. TECHNIQUE: Axial computed tomography images of the abdomen and pelvis with intravenous contrast. Sagittal and coronal reformatted images were created and reviewed. This CT exam was performed using one or more of the following dose reduction techniques: automated exposure control, adjustment of the mA and/or kV according to patient size, and/or use of iterative reconstruction technique. CONTRAST: 115ml of Optiray 320 was administered intravenously. COMPARISON: 01/24/2024 FINDINGS: Limitations: None. Lung bases: Basilar atelectasis present. Pleural space: No basilar pleural effusion. Heart: No abnormality noted. Mediastinum: No abnormality noted. ABDOMEN: Liver: Normal size and contour. Hypodense typical of steatosis. No mass or ductal dilation. Gallbladder and bile ducts: Cholecystectomy. There is fluid and some dense material in the gallbladder fossa which could reflect hemostatic material. The common bile duct is about 8 mm with no evident ductal stone. Pancreas: Homogeneous enhancement. No mass, inflammation or ductal dilation. Spleen: Stable splenomegaly. Adrenals: No significant abnormality noted. Kidneys and ureters: There is now moderate to severe right hydroureteronephrosis with stent in good position. There are multiple small stones in each kidney. Small benign-appearing simple renal cysts present for which no further assessment required. Stomach and bowel: No distension or mucosal thickening. No inflammation noted. PELVIS: Appendix: No findings to suggest acute appendicitis. Bladder: No filling defects to suggest mass or large stone. No inflammation. Reproductive: No abnormalities noted. ABDOMEN and PELVIS: Intraperitoneal space: Small amounts of layering fluid in the pelvis. No abscess. No free air. Bones/joints: Stable diffuse osseous demineralization. No acute osseous abnormality. Soft tissues: Mild edema of the midline subcutaneous fat above the umbilicus at the trocar site. No abdominal wall fluid collection. Sigmoid resection staple line noted. There is a long Longoria's pouch. There is a left lower quadrant colostomy with small parastomal fat-containing hernia and stable left abdominal wall mesh. No intestinal obstruction. Vasculature: No abdominal aortic aneurysm. Lymph nodes: No pathologically enlarged lymph nodes. IMPRESSION: 1. There is edema, mild fluid and some dense material in the cholecystectomy bed which could reflect some admixed blood and/or hemostatic material. There is no organized or drainable collection. 2. There is now moderate to severe right hydroureteronephrosis with ureteral stent in place. Nonobstructing kidney stones present. ACT 112: Negative or not required by law. Electronically signed by Jacqui Milner 02-07-2024 5:47 PM Chest CTA 02/07/24 16:23 EXAM: CT Angiography Chest With Intravenous Contrast INDICATION: Right flank pain. Recent cholecystectomy. TECHNIQUE: Axial computed tomographic angiography images of the chest with intravenous contrast. Sagittal and coronal reformatted images were created and reviewed. This CT exam was performed using one or more of the following dose reduction techniques: automated exposure control, adjustment of the mA and/or kV according to patient size, and/or use of iterative reconstruction technique. MIP reconstructed images were created and reviewed. CONTRAST: 115ml of Optiray 320 was administered intravenously. COMPARISON: 01/23/2024 FINDINGS: Pulmonary arteries: No abnormality noted. No pulmonary embolism. Aorta: No acute change noted. No thoracic aortic aneurysm or dissection. Lungs and pleural spaces: Stable scarring in the right apex. Stable partially calcified nodule in the left upper lobe measuring roughly 0.8 x 0.4 cm. Stable approximate 3 x 5 mm noncalcified right middle lobe pulmonary nodule. Stable cystic and groundglass opacity measuring approximately 2.2 cm diameter in the left lower lobe. Stable scattered centrilobular cysts and apical bulla. There is bilateral lower lobe airway thickening and atelectasis. No pleural effusion or pneumothorax. Heart: No abnormality noted. No cardiomegaly. No significant pericardial effusion. No evidence of RV dysfunction. Bones/joints: Heterogeneous osseous demineralization noted. No acute osseous abnormality. Soft tissues: No abnormality noted. Lymph nodes: No abnormality noted. No enlarged lymph nodes. IMPRESSION: 1. No pulmonary embolus or acute abnormality. 2. Stable chronic pulmonary changes. ACT 112: Negative or not required by law. Electronically signed by Jacqui Milner 02-07-2024 5:58 PM PG Care Time/CCT Total # of Minutes Spent Total Time Spent with Patient: Total time spent is greater than 50% in coordination of care (as documented) at patient's floor/unit and/or counseling patient: Coding Level of Care Code 91967 INT INP/OBS CARE 75MIN Diagnoses Acute right flank pain R10.9 Left-sided chest pain R07.9 SLE (systemic lupus erythematosus) M32.9
[2024-02-07] MEDS: KETOROLAC TROMETHAMINE 15 MG/ML VIAL IV PRN (22:32)
[2024-02-08] MEDS: LEVOTHYROXINE SODIUM 25 MCG TABLET PO SCH (06:01)
[2024-02-08 06:36] LABS: Hematocrit (blood only) 34.2 % (37.0-47.0); Mean Corpuscular Hemoglobin 29.6 pg (25.0-34.0); Mean Corpuscular Hgb Conc 32.2 g/dL (32.0-36.0); Mean Corpuscular Volume 92.2 fL (80.0-100.0); Mean Platelet Volume 9.8 fL (9.4-12.4); Platelet Count 139 K/uL (130-400); RDW Coefficient of Variation 14.6 % (11.5-14.5); RDW Standard Deviation 50.1 fL (36.4-46.3); Red Blood Count 3.71 M/uL (4.20-5.40)
[2024-02-08 07:00] LABS: Albumin Level 3.4 gm/dl (3.4-5.0); BUN Creatinine Ratio 17.7 (10-20); Bilirubin,Total 0.6 mg/dl (0.2-1.0); Creatinine Clr Calc Pharmacy 58.4 ml/min; Potassium 4.2 mmol/L (3.5-5.1)
[2024-02-08] MEDS: TAMSULOSIN HCL 0.4 MG CAP PO SCH (07:40)
[2024-02-08] MEDS: predniSONE 1 MG TAB PO SCH (07:40)
[2024-02-08] MEDS: DOCUSATE SODIUM 100 MG CAP PO SCH (07:44)
--- NOTE | 2024-02-08 07:55 | Urology Consultation ---
Date of Consultation February 08, 2024 Assessment & Plan (1) Hydronephrosis: (2) Acute right flank pain: Plan 63-year-old female with a history of nephrolithiasis and a questionable right ureteral stricture who is status post cystoscopy with right ureteral stent placement on 12/03/2023. She presented the hospital on 02/07/2024 with left-sided chest pain and a CT scan showed new right hydroureteronephrosis despite the stent being in appropriate position. Given the right hydroureteronephrosis and stent being in appropriate position, her stent may be clogged or this could be stent failure from a standpoint of ureteral stricture disease. I had recommended the emergency department last night that she be n.p.o. at midnight when she was admitted. I offered her a right ureteral stent exchange however she was actively eating when I rounded on her so she is not appropriately n.p.o. and this will have to be delayed until tomorrow at this point given that she would have to wait 8 hours to be safe for surgery. I also discussed that she may progress to the point of needing a right nephrostomy tube given that the stent failed in roughly 2 months. This may not be the case but I wanted to at least broach this topic with her today. Please make patient n.p.o. at midnight. Urology will reevaluate patient discomfort tomorrow and again discuss options for her right hydroureteronephrosis with a stent in appropriate position Urology to follow History of Present Illness Attending Physician: Chandra Luu MD History of Present Illness 63-year-old female with a history of nephrolithiasis and a right ureteral stricture. She follows with Dr. Bonilla. She previously presented to the hospital on 12/03/2023 with right hydronephrosis and a questionable small distal right ureteral calculus urinalysis was concerning for infection so I placed a stent on 12/03/2023. Dr. Bonilla saw her in follow-up in clinic and plan was to check an ultrasound. She presented the hospital with left chest pain yesterday. She has been afebrile. Blood pressures have been slightly soft. Today white blood cell count is 4, creatinine is 0.96 which is roughly her baseline. Urinalysis was nonconcerning for infection considering she had a stent in place. She did have a CT scan of the abdomen and pelvis which I independently reviewed and shows right hydroureteronephrosis despite the stent being in appropriate position. Patient's pain is controlled when given Toradol however is fairly uncomfortable both from her right flank pain and left pleuritic chest pain perspective when unmedicated. Patient was eating when I rounded this morning Allergies Allergy/AdvReac Type Severity Reaction Status Date / Time moxifloxacin [From Avelox] Allergy Severe Rash Verified 12/03/23 13:07 Penicillins Allergy Severe Hives Verified 12/03/23 13:07 Sulfa (Sulfonamide Allergy Severe Brain/Head Verified 12/03/23 13:07 Antibiotics) pressure cefoxitin Allergy Unknown Unknown Verified 12/03/23 13:07 vancomycin Allergy Unknown Unknown Verified 12/03/23 13:07 acetaminophen [From Tylenol] AdvReac Unknown Fever Verified 12/03/23 13:07 Antihistamines - Alkylamine AdvReac "skin Verified 12/03/23 13:07 crawling" with antihistamines Home Medications Medication Instructions Recorded Confirmed Type calcium 600 mg (as 1 tab PO DAILY 10/26/23 02/07/24 History carbonate)-vitamin D3 10 mcg (400 unit) tablet (Calcium 600 + D(3)) carboxymethylcellulose 1 drp ophthalmic (eye) BID 10/26/23 02/07/24 History sod-hypromell 0.25 %-0.3 % eye liquid gel drops carboxymethylcellulose sodium 1 % 1 drp ophthalmic (eye) BID 10/26/23 02/07/24 History eye gel in a dropperette (TheraTears) clonazepam 1 mg tablet 1 mg PO TID Anxiety/Insomnia 10/26/23 02/07/24 History docusate sodium 100 mg capsule 200 mg PO DAILY 10/26/23 02/07/24 History (Colace) levothyroxine 25 mcg tablet 25 mcg PO DAILYBB 10/26/23 02/07/24 History naloxone 4 mg/actuation nasal spray 4 mg intranasal UD PRN Other 10/26/23 02/07/24 History omeprazole 20 mg capsule,delayed 20 mg PO QAM 10/26/23 02/07/24 History release oxycodone 5 mg tablet 5 mg PO Q4 PRN Severe Pain (Scale 10/26/23 02/07/24 History Score 7-10) prednisone 1 mg tablet 2 mg PO DAILY 10/26/23 02/07/24 History tamsulosin 0.4 mg capsule 0.4 mg PO DAILY PRN Other 10/26/23 02/07/24 History cyanocobalamin (vitamin B-12) 1,000 mcg PO DAILY #30 caps 11/18/23 02/07/24 Rx 1,000 mcg capsule phenazopyridine 100 mg tablet 100 mg PO Q8H PRN bladder spasms 11/18/23 02/07/24 Rx (Pyridium) #14 tabs gabapentin 300 mg capsule 300 mg PO UD 01/23/24 02/07/24 History potassium citrate-citric acid 5 ml PO DAILY 01/23/24 02/07/24 History 1,100 mg-334 mg/5 mL oral solution prednisolone acetate 1 % eye 1 drp ophthalmic (eye) UD 01/23/24 02/07/24 History drops,suspension prednisone 10 mg tablet 20 mg (2 x 10 mg) PO DAILY #3 tabs 01/25/24 02/07/24 Rx Patient History Medical History Acute cholecystitis Sepsis Ureterolithiasis Hydronephrosis Ureteral calculi Renal colic on right side Nephrolithiasis Raynaud's disease Medullary sponge kidney Panic disorder Hypothyroidism Anal cancer Surgical History Hx laparoscopic cholecystectomy (01/24/24) Laparoscopic Cholecystectomy(Not Applicable)please add difficulty modifier - Pipe De Guzman DO H/O breast biopsy H/O dilation and curettage S/P tonsillectomy and adenoidectomy H/O wrist surgery H/O ventral hernia repair H/O colectomy Family History Other Family history non-contributory Social History Smoking Status: Never smoker Tobacco Type: Cigarettes Second Hand Exposure: Yes; Do You Dip or Chew Tobacco: No; Hx Alcohol Use: No Hx Substance Use: No Preferred Language: Upper Sorbian Communication Ability: Effective Visual Impairment: No Limitations Blacksmith Supervisor Required: No Beliefs That Will Affect Care: None Current Living Situation: Spouse Feels Safe at Home: Yes Safety Concerns: Feels Safe At This Time Assistive Devices: None Physical Exam Physical Exam: General: Alert and oriented, no acute distress HEENT: Normocephalic, mucous membranes moist Pulmonary: Nonlabored respirations Abdomen: Nondistended Extremities: Moves all 4 spontaneously Neuro: No gross deficits Skin: Warm, dry, no rashes noted Results & Data Vital Signs (Past 12 Hours) Vital Signs Temp Pulse Resp BP Pulse Ox O2 Del Method 02/08/24 07:49 97/59 L 02/08/24 07:00 36.6 C 78 18 89/52 L 94 Room Air 02/07/24 21:42 37.2 C 100 H 20 108/68 94 Room Air 02/07/24 20:20 94 H 18 106/64 98 PG Care Time/CCT Total # of Minutes Spent Total Time Spent with Patient: Total time spent is greater than 50% in coordination of care (as documented) at patient's floor/unit and/or counseling patient: Coding Level of Care Code 20519 IN/OBS CONSULT LVL 3,45M Diagnoses Hydronephrosis N13.30 Acute right flank pain R10.9
--- NOTE | 2024-02-08 08:18 | Electrocardiogram Report ---
Test Reason : Blood Pressure : */* mmHG Vent. Rate : 88 BPM Atrial Rate : 88 BPM P-R Int : 186 ms QRS Dur : 82 ms QT Int : 336 ms P-R-T Axes : 83 -39 80 degrees QTcB Int : 406 ms Sinus rhythm with occasional Premature ventricular complexes Left atrial enlargement Incomplete right bundle branch block Left axis deviation Pulmonary disease pattern Abnormal ECG When compared with ECG of 23-Jan-2024 04:51, Premature ventricular complexes are now Present Confirmed by Shankar Anderson ([id number]) on 02/08/2024 8:18:09 AM Referred By: Confirmed By: Shankar Anderson
[2024-02-08] MEDS: HYDROCORTISONE SOD 50 MG in SYRINGE 0 ML IV SCH (09:05)
--- NOTE | 2024-02-08 09:23 | Hospitalist Progress Note ---
Date of Service February 08, 2024 Assessment & Plan (1) Acute right flank pain: Plan: Patient with right ureteral stent in place. Recent Klebsiella UTI s/p completion of antibiotic course. Presents with worsening pain, voiding without difficulty. CT A/P: moderate to severe right hydroureteronephrosis with ureteral stent in place and nonobstructing kidney stones present. Fluid s/p cholecystectomy UA without signs of infection. UC: pinpoint growth, reincubating Patient received IV fluids x 2 L -Urology consultation appreciated - npo at midnight - primary urologist, Dr. Bonilla on service tomorrow, for possible stent exchange as pt would like to avoid nephrosotomy tubes if possible -Continue Flomax - pain control: Oxycodone, Dilaudid and Pyridium p PyridiumRn (2) Left-sided chest pain: Plan: Patient with pleuritic pain in her left chest, progressive throughout the day. CTA with no PE or acute abnormality. Troponin is unremarkable. ?Pleurisy - patient with history of the same x 2 episodes involving the left lung. She also had a pneumothorax on the right side in the past as well. -Toradol PRN (3) SLE (systemic lupus erythematosus): Plan: Chronic. Patient with Sjogren's as well, on chronic prednisone therapy. Stable -Continue Prednisone 2mg po daily patient has been hypotensive, initiated stress dose steroids with hydrocortisone 50 mg every 8 x 3 doses Plan Chronic Medical Conditions: Hypothyroidism -Continue Synthroid dispo: Continued inpatient stay for urology evaluation tomorrow DVT prophylaxis: Held chemical due to possible OR procedure,, encourage ambulation Admission and Anticipated Discharge Date Admission Date: February 07, 2024 Subjective Patient seen sitting up in bed, unfortunately did eat this morning so unable to have her procedure, but her primary urologist is back on shift tomorrow so will be able to discuss options. Hoping to not need nephrostomy tubes asymptomatic from low BP currently pain is controlled at resst, but Gilma is very hesistant about any movement decrease intake of solid foods recently, but ostomy functioning appropiately no fevers. Does endorse chills with high pain episodes. Review of Systems Review of Systems: All systems reviewed & are unremarkable except as noted in Subjective Physical Exam Physical Exam: General: NAD, VS as above Resp: normal respiratory effort, lungs clear to auscultation CV: RRR, no murmur, Abd: soft, non tender, ostomy in place, pink stoma Back: + right CVA tenderness Extremities: Moves all extremities, no edema Neuro: A&O x3, Skin: intact, no lesions noted Results & Data Results & Data Vital Signs (Past 12 Hours) Vital Signs Temp Pulse Resp BP Pulse Ox O2 Del Method 02/08/24 07:49 97/59 L 02/08/24 07:00 97.9 F 78 18 89/52 L 94 Room Air 02/07/24 21:42 99.0 F 100 H 20 108/68 94 Room Air Laboratory Results CBC and chemistry reviewed Diagnostic Findings CT abdomen pelvis reviewed chest CTA reviewed PG Care Time/CCT Total # of Minutes Spent Total Time Spent with Patient: Total time spent is greater than 50% in coordination of care (as documented) at patient's floor/unit and/or counseling patient: Coding Level of Care Code 10060 SUB INP/OBS CARE 3/50MIN Diagnoses Acute right flank pain R10.9 Left-sided chest pain R07.9 SLE (systemic lupus erythematosus) M32.9
[2024-02-08] MEDS: oxyCODONE HCL IR 5 MG TAB (IMMEDIATE RELEASE) PO PRN (12:35)
--- OUTSIDE RECORDS SUMMARY | 2024-02-09 03:46 | External Medical Summary | Summary of Care ---
Author Name Unknown Organization [facility] Address [address] [place] [address] Phone [phone] Care Team Providers Care Preanalytics Team Lead Name Role Phone Caitie Aden Primary Care Provider [phone] Reason for Visit * Reason Comments Follow Up Encounter Details Date Type Department Care Team (Late st Contact Info) Description 02/06/2024 10:00 AM EST Telemedicine General Surgery, [address] [id number] Horace Elder MD [address] [place] [address] Abdominal pain, LLQ (left lower [...] as of this encounter (statuses as of 02/06/2024) Medications KLONOPIN 0.5 MG PO TABSIndications:Lucio adeline [...] as of this encounter (statuses as of 02/06/2024) Active Problems Problem Noted Date Diagnosed Date [...] as of this encounter (statuses as of 02/06/2024) Resolved Problems Problem Noted Date Diagnosed Date Resolved Date Anal fissure 02/08/2019 02/08/2019 ADVANCE DIRECTIVE INFORMATION 03/25/2005 01/05/2024 Overview (03/25/2005): No, Advance Directive brochure given to patient. documented as of this encounter (statuses as of 02/06/2024) Immunizations No known immunizationsdocumented as of this [...] file Not on file Not on file GRAIN THRESHER Not on file Not on file Not [...] Entry Date Author No 05/15/2023 6:06 PM Malick Nair RN documented in this encounter Progress Notes * Horace Elder MD - 02/06/2024 9:46 AM EST After connecting to the patient via telephone, the patient was identified by name and date of . Patient was then informed that this was a telephone call only visit. The patient agreed to participate. Visit Disposition: Routine follow-up Total call duration was 5 minutes. The patient is following up for a Sugarbaker repair of a parastomal hernia. She had to have her gallbladder removed two weeks ago. She notes the pain is better by the ostomy. She only took the gabapentin for 2 days and then stopped after her surgery. They lysed some adhesions by the ostomy. PLAN- will follow up in 2 months. documented in this encounter Plan of Treatment Upcoming Encounters Date Type Department Care Team (Late st Contact Info) Description 04/16/2024 10:00 AM EST Telemedicine General Surgery, [address] [phone] Horace Elder MD [address] [place] [address] Health Maintenance Due Date Last [...] this encounter Medical Devices Implanted Type Area Bed Operator Device Identifier Shelf Expiration Date Model / Serial / Lot Patch Tissue 10x15 [id number] - [id number] Implanted:Qty : 1 on 05/15/2023 by Horace Elder MD at OR [facility] [place] N/A: Abdomen [employer] [id number] 10/06/2027 [id number] / [id number] / [id number] Mesh Capsure Fixation 30 - [id number] Implanted:Qty : 1 on 05/15/2023 by Horace Elder MD at OR [facility] [place] CR BARD : DAVOL 05/28/2024 [id number] / / [id number] documented as of this encounter Visit Diagnoses [...] Discussed due to patient's condition Care Teams Preanalytics Team Lead Relationship Specialty Start Date End Date Caitie Aden DO [address] [place] [id number] PCP - General 09/12/09 documented as of this encounter
[2024-02-09 06:33] LABS: BUN Creatinine Ratio 20.3 (10-20); Creatinine Clr Calc Pharmacy 81.3 ml/min
--- NOTE | 2024-02-09 09:14 | Urology Progress Note ---
Date of Service February 09, 2024 Assessment & Plan (1) Hydronephrosis: (2) Acute right flank pain: Plan 63-year-old female with a history of nephrolithiasis and a questionable right ureteral stricture who is status post cystoscopy with right ureteral stent placement on 12/03/2023. She presented the hospital on 02/07/2024 with left-sided chest pain and a CT scan showed new right hydroureteronephrosis despite the stent being in appropriate position. Afebrile, mildly hypotensive otherwise stable vitals Labs today show normal renal function Urine culture pending Given the right hydroureteronephrosis and stent being in appropriate position, her stent may be clogged or this could be stent failure from a standpoint of ureteral stricture disease. Recommend proceeding to OR today for cystoscopy, right retrograde pyelogram, right ureteral stent exchange- she is agreeable Risks and benefits to be reviewed with patient by Dr. Brunner Keep NPO Will cover with antibiotics preoperatively Urology to follow Admission and Anticipated Discharge Date Admission Date: February 07, 2024 Supervising Physician Co-Signing Physician Notes Plan for cystoscopy, right retrograde pyelogram, right ureteral stent exchange Subjective Pt seen at bedside this AM Awake and resting in bed on arrival No acute distress Has been NPO Review of Systems Constitutional: as per Subjective / HPI Genitourinary: as per Subjective / HPI Physical Exam Constitutional: no acute distress Respiratory: no respiratory distress and no labored breathing Neurologic: moves all extremities and awake Psychiatric: A+Ox3, euthymic affect Results & Data Vital Signs (Past 12 Hours) Vital Signs Temp Pulse Resp BP Pulse Ox O2 Del Method 02/09/24 07:29 36.4 C L 69 18 92/55 L 97 Room Air PG Care Time/CCT Total # of Minutes Spent Total Time Spent with Patient: Total time spent is greater than 50% in coordination of care (as documented) at patient's floor/unit and/or counseling patient: Coding Level of Care Code 17644 SUB INP/OBS CARE 2/35MIN Diagnoses Hydronephrosis N13.30 Acute right flank pain R10.9
[2024-02-09] MEDS: cefTRIAXone SODIUM 1,000 MG/50 ML BAG IV SCH (11:53)
[2024-02-09] MEDS ORDERED: ONDANSETRON INJ 2 MG/ML 2 ML VIAL ONE (12:22)
[2024-02-09] MEDS ORDERED: LIDOCAINE 2% 2 ML VIAL/AMP(20MG/ML) INFIL ONE (12:22)
[2024-02-09] MEDS ORDERED: PROPOFOL IV EMULSION 10 MG/ML 20 ML VIAL IV ONE (12:22)
[2024-02-09] MEDS ORDERED: MIDAZOLAM HCL 1 MG/ML 2ML VIAL ONE (12:22)
[2024-02-09] MEDS ORDERED: fentaNYL citrate PF 100 MCG/2 ML VIAL ONE (12:23)
[2024-02-09] MEDS: SODIUM CHLORIDE 0.9% 1,000 ML IV SCH (12:27)
[2024-02-09] MEDS ORDERED: PROPOFOL IV EMULSION 10 MG/ML 100 ML VIAL IV ONE (12:51)
[2024-02-09] MEDS ORDERED: PROMETHAZINE HCL 6.25 MG in SODIUM CHLORIDE 0.9% 50 ML IV PRN (12:56)
[2024-02-09] MEDS ORDERED: ePHEDrine sulfate 50 MG/ML AMP IV PRN (12:56)
[2024-02-09] MEDS ORDERED: fentaNYL citrate PF 100 MCG/2 ML VIAL IV PRN (12:56)
[2024-02-09] MEDS ORDERED: DROPERIDOL 5 MG/2 ML VIAL IV PRN (12:56)
[2024-02-09] MEDS ORDERED: ATROPINE SULFATE 0.1 MG/ML 10ML SYR IV PRN (12:56)
[2024-02-09] MEDS: DIATRIZOATE MEGLUMINE 30% 100ML VIAL INSTIL ONE (13:26)
--- NOTE | 2024-02-09 13:51 | Operative Report ---
PG Post Operative Report Pre & Post Diagnosis Operation Date: 02/09/24 13:45 Pre-Op Diagnosis: Hydronephrosis Post-Op Diagnosis: Hydronephrosis I identified the patient and participated in the time-out.: Yes Procedure Operation Date: 02/09/24 13:45 Actual Procedures p Cystoscopy, Right: Retrograde Pyelogram with radiographic interpretation and stent Exchange(Right) - Spenser Brunner MD Surgeon Spenser Brunner MD Independent Contractor Kleber Ceron MS 2 Estimated Blood Loss 0 Findings See Below Significant hydronephrosis and kidney did appear obstructed. Stent was not encrusted and I was able to pass a wire through it. Stent exchanged without issue. Specimens None Drains 7Fr x 26cm imajin stent Anesthesia Type MAC Indications 63-year-old female with a history of stones and questionable right ureteral stricture who previously had a stent in place but developed right flank pain and worsening hydronephrosis suggesting the stent was no longer working. Options discussed and presents for stent exchange. Description of Procedure After informed consent was obtained, the patient was transported to the operative suite. General anesthesia was induced. They were placed in dorsal lithotomy position and prepped and draped in sterile fashion. They received preoperative ceftriaxone. An appropriate surgical timeout was performed. 22 [place]an rigid cystoscope was inserted per urethra and the bladder. I turned my attention the right ureteral orifice and advanced a sensor wire alongside the stent. Using a grasper, the stent was then removed. A 5 [place]an opening catheter was advanced over the wire and wire was removed and a retrograde pyelogram was shot which showed significant hydronephrosis. The kidney did appear to be obstructed. The stent was not encrusted as it was a previous longer indwelling stent. Wire was replaced and 5 [place]an was removed. Cystoscope was backloaded over the wire and a 7 [place]an by 26 cm Coloplast imajin and stent was placed with a good proximal coil in the kidney confirmed under fluoroscopic guidance and good distal coil in the bladder confirmed under direct visualization. Bladder was emptied and scope was removed. All counts correct at the end of the case. I was present scrubbed and actively participated for the entirety of the procedure. I attest to the content of the Intraoperative Record and any orders documented therein. Any exceptions are noted below.
[2024-02-09 14:07] VITALS: TEMP 97.7
--- NOTE | 2024-02-09 14:12 | Fluoroscopy Report ---
FL retrograde includes kub CLINICAL HISTORY: RT SIDE RETROGRADE AND STENT PLACEMENT COMPARISON STUDY: CT 02/07/2024 FLUOROSCOPY TIME: 13.4 seconds FLUOROSCOPY IMAGES: 2 EXPOSURE DOSE: 1.5063 mGy FINDINGS: Status post placement of a right ureteral stent, proximal portion projected over the superi or pole collecting system. Cholecystectomy. Severe right-sided hydronephrosis. IMPRESSION: Fluoroscopic assistance as above. ACT 112: Negative or not required by law. Electronically signed by: Ab Campbell M.D. 02/09/2024 2:11 PM
--- NOTE | 2024-02-09 14:53 | Anesthesiology Progress Note ---
Date of Service February 09, 2024 Anesthesia Post Procedure Vital Signs Vital Signs: Temp Pulse Pulse Resp BP BP Pulse Ox 02/09/24 14:50 36.5 C 62 16 93/44 L 96 02/09/24 14:25 36.5 C 63 14 96/60 L 99 02/09/24 14:05 36.5 C 68 15 105/53 L 98 02/09/24 13:55 67 13 96/52 L 100 02/09/24 13:45 58 L 15 87/43 L 100 02/09/24 13:37 36.0 C L 66 12 90/46 L 98 02/09/24 12:19 36.5 C 75 20 107/46 L 98 02/09/24 07:29 36.4 C L 69 18 92/55 L 97 02/08/24 21:07 36.7 C 69 16 96/55 L 96 02/08/24 15:01 99/66 L 02/08/24 14:59 36.5 C 70 16 87/46 L 97 O2 Del Method O2 Flow Rate 02/09/24 14:50 Room Air 02/09/24 14:25 Room Air 02/09/24 14:05 Room Air 0 02/09/24 13:55 Room Air 0 02/09/24 13:45 Oxymask 4 02/09/24 13:37 Oxymask 8 02/09/24 12:19 Room Air 02/09/24 07:29 Room Air 02/08/24 21:07 Room Air 02/08/24 15:01 02/08/24 14:59 Room Air Pain Intensity Chest: Pain Intensity: 9 Transfer of Care Handoff Completed per policy Notes Mental Status: alert / awake / arousable and participated in evaluation Nausea / Vomiting: adequately controlled Pain: adequately controlled Airway Patency, RR, SpO2: stable & adequate BP & HR: stable & adequate Hydration State: stable & adequate Anesthetic Complications: no major complications apparent and Pt Satisfied with anesthetic care
[2024-02-09 15:26] VITALS: BP 92/49; PULSE 60; RESP 18; O2SAT 98
--- NOTE | 2024-02-09 15:45 | Discharge Summary ---
Discharge Summary Date of Service February 09, 2024 Principal Dx & Hospital Course #1 = Principal Diagnosis (1) Acute right flank pain: Patient with right ureteral stent in place. Recent Klebsiella UTI s/p completion of antibiotic course. Presents with worsening pain, voiding without difficulty on 02/07/24. CT A/P: moderate to severe right hydroureteronephrosis with ureteral stent in place and nonobstructing kidney stones present. Fluid s/p cholecystectomy UA without signs of infection. UC: strep anginosus patient d/c home on additional 6 day course of cefpodoxime 200mg BID starting 02/09. s/p 1 dose IV Rocephin 02/08 Patient received IV fluids x 2 L -Urology consultation appreciated - Stent exchange with Dr. Brunner 02/08 -Continue Flomax -Pain control with NSAIDs, Pyridium, and oxycodone at home. (2) Left-sided chest pain: Patient with pleuritic pain in her left chest, progressive throughout the day. CTA with no PE or acute abnormality. Troponin is unremarkable. ?Pleurisy - patient with history of the same x 2 episodes involving the left lung. She also had a pneumothorax on the right side in the past as well. -NSAIDs prn at home. (3) SLE (systemic lupus erythematosus): Chronic. Patient with Sjogren's as well, on chronic prednisone therapy. Stable -Continue Prednisone 2mg po daily patient has been hypotensive, stress dose steroids with hydrocortisone 50 mg every 8 x 3 doses completed 02/07 Plan Chronic Medical Conditions: Hypothyroidism -Continue Synthroid updated at bedside. 02/08 discussed w/ urology via [place] Text 02/08 Admission HPI Per Admitting Provider Gilma Lantigua is a 63yo female with history of anal cancer with colostomy in place, Sjogren's syndrome, medullary sponge kidney. Patient was recently admitted to [facility] from 01/22 - 01/24 after presenting with acute right sided chest pain. Patient found to have acute cholecystitis s/p laparoscopic cholecystectomy performed by Dr. De Guzman on 01/24/24. Patient also with Klebsiella UTI. She has an indwelling right ureteral stent in place. No hydronephrosis noted at that time. Patient was ultimately discharged home on Cefdinir 300mg po BID x 4 days which she has completed. She returns today with ongoing left sided pleuritic chest pain. She woke with the pain this morning and it has progressed throughout the day. She also has some discomfort in the right flank. She has an appointment with Urology in three weeks to discuss stent management. Patient afebrile, HD stable in the ER. ER Course: Dilaudid 0.5mg Zorfran 4mg Dilaudid 0.5mg Ceftriaxone 2gm Morphine 4mg IV Discharge Exam Constitutional WD/WN, vitals as above Eyes PERRL, conjunctivae normal, anicteric sclerae Respiratory breathing unlabored Cardiovascular well perfused Psychiatric A+Ox3, euthymic affect Discharge Plan Discharge Items Patient Disposition: Home - Self-Care Reason For Visit: RIGHT FLANK PAIN Discharge Diagnosis: Hydroureteronephrosis Activity: Resume your previous activity Non-emergency contact: Primary Care Provider and Urologist Call non-emergency contact if: you have any medication questions, your symptoms worsen and your pain is not controlled Follow-up/Referrals: Caitie Aden DO [Primary Care Provider] - Diet: Regular Addtl Attending Provider Instructions: Mrs. Lantigua, You were recently hospitalized for right flank pain. You underwent a cystoscopy with Dr. Brunner and had your stents replaced. You were also found to have a urinary tract infection. Please see below regarding recommendations on your discharge. 1. Please take Cefpodoxime twice daily for the next 6 days. your next dose will be 12/10 in the AM please take with food to avoid an upset stomach 2. Please use Pyridium three times a day for the next two days as needed for urinary discomfort. 3. Please drink plenty of fluids. 4. You may resume the remainder of your outpatient medications. If you develop any worsening flank pain or urinary symptoms including burning, frequency, or blood in urine please report back to the ER for further care. Sincerely, Sunshine Mckeon Pending Studies at Discharge: No Stand-Alone Forms: My [employer], Smoking Cessation Medications and DC Order Prescriptions: New cefpodoxime 200 mg tablet 200 mg PO BID Qty: 12 0RF Rx Instructions: must administer with a meal/food phenazopyridine [Pyridium] 100 mg tablet 100 mg PO TID PRN (Reason: pain) Qty: 6 0RF Continued clonazepam 1 mg tablet 1 mg PO TID levothyroxine 25 mcg tablet 25 mcg PO DAILYBB tamsulosin 0.4 mg capsule 0.4 mg PO DAILY PRN (Reason: Other) prednisone 1 mg tablet 2 mg PO DAILY Hold Instructions: Resume on 01/28/24. docusate sodium [Colace] 100 mg Capsule 200 mg PO DAILY omeprazole 20 mg capsule,delayed release(DR/EC) 20 mg PO QAM oxycodone 5 mg tablet 5 mg PO Q4 PRN (Reason: Severe Pain (Scale Score 7-10)) Rx Instructions: usually takes at night as needed. Q 4-6 hours calcium carbonate-vitamin D3 [Calcium 600 + D(3)] 600 mg-10 mcg (400 unit) Tablet 1 tab PO DAILY naloxone 4 mg/actuation spray,non-aerosol 4 mg INTRANASAL UD PRN (Reason: Other) Rx Instructions: Tabor 1 spray into one nostril as directed for overdose, respiratory supression/slow infrequent breathing. Repeat in 3 minutes in the other nostril if no response. Call 911. carboxymethylcell-hypromellose 0.25-0.3 % Drops, Liquid Gel 1 drp OPHTHALMIC (EYE) BID carboxymethylcellulose sodium [TheraTears] 1 % Dropperette,Gel 1 drp OPHTHALMIC (EYE) BID cyanocobalamin (vitamin B-12) 1,000 mcg capsule 1,000 mcg PO DAILY Qty: 30 0RF phenazopyridine [Pyridium] 100 mg tablet 100 mg PO Q8H PRN (Reason: bladder spasms) Qty: 14 0RF potassium citrate-citric acid 1,100-334 mg/5 mL solution 5 ml PO DAILY Rx Instructions: 15 ml total daily prednisolone acetate 1 % drops,suspension 1 drp ophthalmic (eye) UD Rx Instructions: 1 drop affected eye qid. start 2 days prior to surgery. bring bottle to surgery. gabapentin 300 mg capsule 300 mg PO UD Rx Instructions: just took 3rd one last night 01/21 but thinks she wants to hold off on the medication. prednisone 10 mg tablet 20 mg PO DAILY Qty: 3 0RF Rx Instructions: x 1 day then take 10mg po daily x 1 day, then return to your usual 2mg daily Discharge Orders: Discharge Order (Routine); Ordered 02/09/24 Ordered By: Sunshine King Admission Data Admit Date/Time: 02/07/24 19:38 Attending Provider: Montrell Washington Admit Provider: China Yanez Primary Care Provider: Caitie Aden Other Providers: Teddy Colunga; Spenser Brunner Other Interventions: Discharge Summary Assessment (RN) Last Done: 02/09/24 15:49 Hospital Stay Data Consultations 02/07/24 19:06 ED Decision to Admit Stat 02/07/24 19:38 Consult Urology Routine Procedures Performed Operation Date: 02/09/24 13:45 Actual Procedures p Cystoscopy, Right: Retrograde Pyelogram with Stent Exchange(Right) - Spenser Brunner MD Diagnostic Imagining Performed 02/07/24 16:23 CT Abd and Pelvis [CT abd pelvis IV con only] Stat CT angio chest PE protocol Stat 02/09/24 12:00 FL retrograde includes kub Routine Pending Results Patient Have Any Pending Studies at Discharge: No Discharge Instructions Given to Patient (Per Discharging Provider) Mrs. Lantigua, Facundo were recently hospitalized for right flank pain. You underwent a cystoscopy with Dr. Brunner and had your stents replaced. You were also found to have a urinary tract infection. Please see below regarding recommendations on your discharge. 1. Please take Cefpodoxime twice daily for the next 6 days. your next dose will be 12/10 in the AM please take with food to avoid an upset stomach 2. Please use Pyridium three times a day for the next two days as needed for urinary discomfort. 3. Please drink plenty of fluids. 4. You may resume the remainder of your outpatient medications. If you develop any worsening flank pain or urinary symptoms including burning, frequency, or blood in urine please report back to the ER for further care. Sincerely, Sunshine King PA-C . Total Time Total Time Spent Total Time Spent (In Minutes): 45 Total Time Includes: Examination of the Patient, Discharge Planning, Medication Reconciliation and Communication With Other Providers Coding Level of Care Code 14164 INP/OBS DISCH >30 MIN Diagnoses Acute right flank pain R10.9 Left-sided chest pain R07.9 SLE (systemic lupus erythematosus) M32.9
== END 2024-02-09 17:04 | disposition home or self-care (01) ==
LOC: ED 15:40 → SUATTDRO 19:38 → 3N 19:38 → INTOOBSV 19:38 → 3N 20:30

== ENCOUNTER 2024-03-08 11:44 | Inpatient (IN) ==
--- NOTE | 2024-03-08 12:18 | Emergency Department Note ---
Impression & Plan Complicated urinary tract infection, Intractable abdominal pain, Hydroureteronephrosis ED Provider Note HISTORY OF PRESENT ILLNESS: Patient is a 53-year-old female presenting with right flank pain. Patient reports she has known ureteral stricture and has a stent currently in place on her right side. She reports that starting at 1:30 AM today she developed acute pain in her right flank. She states that she has been having multiple episodes of nausea and vomiting. Reports she took two 5 mg oxycodone at home with little relief in her symptoms. She reports daily hematuria. Reports some dysuria. Denies any fevers. Is not currently on any antibiotics. She states she took a Pyridium at home. ROS: as above PHYSICAL EXAM: Constitutional: Patient appears in no acute distress. Patient is tearful. HENT: Head: Normocephalic and atraumatic. Eyes: EOMI, PERRL Mouth/Throat: Mucous membranes moist. Neck: Trachea midline. Neck supple. Cardiovascular: RRR, No murmurs, rubs or gallops. Intact distal pulses. Pulmonary/Chest: No respiratory distress. Breath sounds clear and equal bilaterally. No wheezes or rales. Abdominal: Abdomen soft, no tenderness, rebound or guarding. Right CVA tenderness Back: No midline spinal tenderness, no paraspinal tenderness. Musculoskeletal: No edema, tenderness or deformity noted. Skin: Warm and dry. No rash, erythema, pallor or cyanosis Psychiatric: Appropriate mood and affect for situation. Neurological: Alert and keenly responsive. CN II-XII grossly intact, moving all extremities equally and fully. MDM: - Vitals signs showed tachycardia. - History obtained via patient. History as above. - Chronic conditions affecting care: thrombocytopenia; SLE; hypothyroidism; Medullary sponge kidney - Differential diagnoses include, but are not limited to: ureteral stone; stent movement; UTI; pyelonephritis; bowel obstruction - Order placed for continuous cardiac monitoring. At this time, monitor showed rate of 83 bpm with normal sinus rhythm, per my interpretation. - External medical records reviewed. Discharge summary dated 02/09/2024 was reviewed. Patient was admitted for acute right flank pain with a right ureteral stent in place. She presented with worsening pain and voiding difficulties. She was discharged home on 6 days of cefpodoxime for treatment of her UTI. - EKG interpreted by myself showed normal sinus rhythm. Rate 78 bpm. QT 364. No acute ischemic changes. - Laboratory workup interpreted by myself showed slight leukopenia (WBC 4.60); normal PT/INR; normal lactate; stable electrolytes; normal lipase - UA showed evidence of infection. 2g IV rocephin ordered. - Viral respiratory swab negative - CT abdomen/pelvis wo contrast showed severe right hydroureteronephrosis similar to previous CT. - Patient given 1L NS, 0.5 mg IV dilaudid and 4 mg IV zofran on arrival. However, on reassessment, she is reporting significant pain in the right flank and stated that the pain meds did not touch it. Given another 0.5 mg IV Dilaudid. - Discussed case with urology [facility] on-call, Phyllis De Guzman at 13:32. States that the patient stent was just exchanged and looks to be in good position. Recommends patient received supportive care and antibiotics. - Given patient's intractable pain, will admit to hospitalist service with urology consultation. - Discussion was had with case management assistant about patient's case and need for admission - Hospitalist consulted for admission - Patient admitted to [facility] hospitalist service for further evaluation and management. ASSESSMENT AND PLAN: Diagnosis: Intractable right flank pain; acute complicated UTI; hydroureteronephrosis Plan: admit Past Med/Surg History Problem List (Updated 02/25/24 @ 00:08 by Background Vonda) Hydroureteronephrosis (Acute) Intractable abdominal pain (Acute) Complicated urinary tract infection (Acute) Ureteral stent retained (Acute) Hydronephrosis (Acute) Acute right flank pain (Acute) Left-sided chest pain (Acute) Sjogrens syndrome LIP (lymphoid interstitial pneumonitis) ILD (interstitial lung disease) Multiple idiopathic pulmonary cysts Anxiety Chest pain Enterococcal bacteremia Colostomy status SLE (systemic lupus erythematosus) Secondary thrombocytopenia Pancytopenia History of creation of ostomy (Acute) Medical History Acute cholecystitis Sepsis Ureterolithiasis Hydronephrosis Ureteral calculi Renal colic on right side Nephrolithiasis Raynaud's disease Medullary sponge kidney Panic disorder Hypothyroidism Anal cancer Surgical History Hx laparoscopic cholecystectomy (01/24/24) Laparoscopic Cholecystectomy(Not Applicable)please add difficulty modifier - Pipe De Guzman DO H/O breast biopsy H/O dilation and curettage S/P tonsillectomy and adenoidectomy H/O wrist surgery H/O ventral hernia repair H/O colectomy Family History Other Family history non-contributory Social History Smoking Status: Never smoker Tobacco Type: Cigarettes Second Hand Exposure: Yes; Do You Dip or Chew Tobacco: No; Hx Alcohol Use: No Hx Substance Use: No Preferred Language: Latvian Communication Ability: Effective Visual Impairment: No Limitations Prizer Hand Required: No Beliefs That Will Affect Care: None Current Living Situation: Spouse Feels Safe at Home: Yes Assistive Devices: None Allergies Allergies Allergy/AdvReac Type Severity Reaction Status Date / Time moxifloxacin [From Avelox] Allergy Severe Rash Verified 12/03/23 13:07 Penicillins Allergy Severe Hives Verified 12/03/23 13:07 Sulfa (Sulfonamide Allergy Severe Brain/Head Verified 12/03/23 13:07 Antibiotics) pressure cefoxitin Allergy Unknown Unknown Verified 12/03/23 13:07 vancomycin Allergy Unknown Unknown Verified 12/03/23 13:07 acetaminophen [From Tylenol] AdvReac Unknown Fever Verified 12/03/23 13:07 Antihistamines - Alkylamine AdvReac "skin Verified 12/03/23 13:07 crawling" with antihistamines Home Meds Home Medications Medication Instructions Recorded Confirmed calcium 600 mg (as 1 tab PO DAILY 10/26/23 02/07/24 carbonate)-vitamin D3 10 mcg (400 unit) tablet (Calcium 600 + D(3)) carboxymethylcellulose 1 drp ophthalmic (eye) BID 10/26/23 02/07/24 sod-hypromell 0.25 %-0.3 % eye liquid gel drops carboxymethylcellulose sodium 1 % 1 drp ophthalmic (eye) BID 10/26/23 02/07/24 eye gel in a dropperette (TheraTears) clonazepam 1 mg tablet 1 mg PO TID Anxiety/Insomnia 10/26/23 02/07/24 docusate sodium 100 mg capsule 200 mg PO DAILY 10/26/23 02/07/24 (Colace) levothyroxine 25 mcg tablet 25 mcg PO DAILYBB 10/26/23 02/07/24 naloxone 4 mg/actuation nasal spray 4 mg intranasal UD PRN Other 10/26/23 02/07/24 omeprazole 20 mg capsule,delayed 20 mg PO QAM 10/26/23 02/07/24 release oxycodone 5 mg tablet 5 mg PO Q4 PRN Severe Pain (Scale 10/26/23 02/07/24 Score 7-10) prednisone 1 mg tablet 2 mg PO DAILY 10/26/23 02/07/24 tamsulosin 0.4 mg capsule 0.4 mg PO DAILY PRN Other 10/26/23 02/07/24 gabapentin 300 mg capsule 300 mg PO UD 01/23/24 02/07/24 potassium citrate-citric acid 5 ml PO DAILY 01/23/24 02/07/24 1,100 mg-334 mg/5 mL oral solution prednisolone acetate 1 % eye 1 drp ophthalmic (eye) UD 01/23/24 02/07/24 drops,suspension Previous Rx's Medication Instructions Recorded cyanocobalamin (vitamin B-12) 1,000 mcg PO DAILY #30 caps 11/18/23 1,000 mcg capsule phenazopyridine 100 mg tablet 100 mg PO Q8H PRN bladder spasms 11/18/23 (Pyridium) #14 tabs cefpodoxime 200 mg tablet 200 mg PO BID #12 tabs 02/09/24 phenazopyridine 100 mg tablet 100 mg PO TID PRN pain 6 doses #6 02/09/24 (Pyridium) tabs Results & Data (ED) Vital Signs Vital Signs - 24 hr 03/08/24 11:47 03/08/24 12:12 03/08/24 12:53 Temperature 36.6 C Temperature Source Skin Pulse Rate 91 H 86 Pulse Rate [Apical] Pulse Rhythm Regular Pulse Rhythm [Apical] Pulse Strength [Apical] Respiratory Rate 20 19 16 Respiratory Effort / Characteristics Non-Labored Spontaneous Non-Labored Spontaneous Respiratory Depth Normal Normal Respiratory Pattern Regular Regular Blood Pressure 112/67 Blood Pressure [Left Arm] 114/64 Blood Pressure Mean 82 Blood Pressure Mean [Left Arm] 80 Blood Pressure Position [Left Arm] Sitting Pulse Oximetry 97 98 96 Oxygen Delivery Method Room Air Room Air Room Air Sepsis Recent Fever Within 48 Hours No Sepsis New/Unexplained Change in Mental Status N/A Sepsis Action Taken by Nursing No Action Required 03/08/24 13:05 03/08/24 14:00 Temperature Temperature Source Pulse Rate 83 Pulse Rate [Apical] 79 Pulse Rhythm Pulse Rhythm [Apical] Regular Pulse Strength [Apical] Normal Respiratory Rate 12 Respiratory Effort / Characteristics Non-Labored Spontaneous Respiratory Depth Normal Respiratory Pattern Regular Blood Pressure Blood Pressure [Left Arm] 105/63 Blood Pressure Mean Blood Pressure Mean [Left Arm] 77 Blood Pressure Position [Left Arm] Sitting Pulse Oximetry 95 Oxygen Delivery Method Room Air Sepsis Recent Fever Within 48 Hours Sepsis New/Unexplained Change in Mental Status Sepsis Action Taken by Nursing Laboratory Data 03/08/24 11:58 03/08/24 11:58 Lab Results 03/08/24 03/08/24 Range/Units 11:58 12:42 WBC 4.60 L (4.8-10.8) K/ul RBC 4.11 L (4.20-5.40) M/uL Hgb 12.3 (12.0-16.0) g/dl Hct 37.2 (37.0-47.0) % MCV 90.5 (80.0-100.0) fL MCH 29.9 (25.0-34.0) pg MCHC 33.1 (32.0-36.0) g/dL RDW Std Deviation 50.6 H (36.4-46.3) fL RDW Coeff of Bertha 15.1 H (11.5-14.5) % Plt Count 105 L (130-400) K/uL MPV 9.8 (9.4-12.4) fL Immature Gran % (Auto) 0.7 % Neut % (Auto) 75.8 % Lymph % (Auto) 14.8 % [place] % (Auto) 8.5 % Eos % (Auto) 0.0 % Baso % (Auto) 0.2 % Neut # (Auto) 3.49 (1.40-6.50) K/uL Lymph # (Auto) 0.68 L (1.20-3.40) K/uL Randolph # (Auto) 0.39 (0.11-0.59) K/uL Eos # (Auto) 0.00 (0.00-0.50) K/uL Baso # (Auto) 0.01 (0.00-0.20) K/uL Immature Gran # (Auto) 0.03 (0.01-0.20) K/uL PT 10.3 (9.0-12.0) Seconds INR 0.9 (0.9-1.1) Sodium 138 (136-145) mmol/L Potassium 3.8 (3.5-5.1) mmol/L Chloride 106 (98-107) mmol/L Carbon Dioxide 27 (21-32) mmol/L Anion Gap 5 (3-11) BUN 14 (6-23) mg/dl Creatinine 0.80 (0.6-1.2) mg/dl Est Cr Clr Drug Dosing 70.9 ml/min eGFR 83.26 BUN/Creatinine Ratio 17.5 (10-20) Glucose 100 H (70-99(Fasting)) mg/dl Lactate 0.8 (0.4-2.0) mmol/L Calcium 9.5 (8.6-10.3) mg/dl Total Bilirubin 0.7 (0.2-1.0) mg/dl AST 26 (13-39) U/L ALT 24 (7-52) U/L Alkaline Phosphatase 66 (34-104) U/L Total Protein 8.1 (6.0-8.3) gm/dl Albumin 4.2 (3.4-5.0) gm/dl Globulin 3.9 (2.5-4.0) gm/dl Albumin/Globulin Ratio 1.1 (0.9-2) Lipase 26 (11-82) U/L Urine Color Dark Yellow Urine Appearance Cloudy A (Clear) Urine pH 6.5 (4.5-7.5) Ur Specific [place] 1.018 (1.000-1.030) Urine Protein 1+ H (Negative) Urine Glucose (UA) Negative (Negative) Urine Ketones Negative (Negative) Urine Blood 2+ H (Negative) Urine Nitrite Positive A (Negative) Urine Bilirubin 1+ H (Negative) Urine Urobilinogen Negative (Negative) Ur Leukocyte Esterase 3+ H (Negative) Urine WBC (Auto) >50 H (0-5) /hpf Urine RBC (Auto) >20 H (0-2) /hpf U Hyaline Cast (Auto) 3-5 H (0-2) /lpf U Epithel Cells (Auto) 0-2 (0-2) /hpf Urine Bacteria (Auto) 4+ H (None Seen) Urine Mucus Present A (None Prsent) Adenovirus (PCR) Not Detected (NotDetected) B. pertussis DNA (PCR) Not Detected (NotDetected) B.parapertussis DNA PCR Not Detected (NotDetected) C. pneumoniae DNA (PCR) Not Detected (NotDetected) Coronavirus OC43 (PCR) Not Detected (NotDetected) Coronavirus HKU1 (PCR) Not Detected (NotDetected) Coronavirus 229E (PCR) Not Detected (NotDetected) SARS-CoV-2 (PCR) Not Detected (NotDetected) Coronavirus NL63 (PCR) Not Detected (NotDetected) Human Metapneumovir PCR Not Detected (NotDetected) Influenza Type A (PCR) Not Detected (NotDetected) Influenza Type B (PCR) Not Detected (NotDetected) M. pneumoniae (PCR) Not Detected (NotDetected) Parainfluenza 1 (PCR) Not Detected (NotDetected) Parainfluenza 2 (PCR) Not Detected (NotDetected) Parainfluenza 3 (PCR) Not Detected (NotDetected) Parainfluenza 4 (PCR) Not Detected (NotDetected) RSV (PCR) Not Detected (NotDetected) Entero/Rhino (PCR) Not Detected (NotDetected) Administered Medications Discontinued Medications Hydromorphone HCl (Hydromorphone Inj 0.5 Mg/0.5 Ml Syr) 0.5 mg IV NOW STA Stop: 03/08/24 12:15 Last Admin: 03/08/24 12:21 Dose: 0.5 mg Documented By: LINDSEY Hydromorphone HCl (Hydromorphone Inj 0.5 Mg/0.5 Ml Syr) 0.5 mg IV NOW STA Stop: 03/08/24 13:40 Last Admin: 03/08/24 13:43 Dose: 0.5 mg Documented By: LINDSEY Sodium Chloride (Nss) 1,000 mls @ 999 mls/hr IV .Q1H1M ONE Stop: 03/08/24 13:14 Last Infusion: 03/08/24 13:21 Dose: Infused Documented By: Admin: 03/08/24 12:20 Dose: 999 mls/hr Documented By: LINDSEY Ceftriaxone Sodium (Rocephin) 2,000 mg in 50 mls @ 100 mls/hr IV NOW STA Stop: 03/08/24 14:18 Last Infusion: 03/08/24 14:49 Dose: Infused Documented By: Admin: 03/08/24 14:04 Dose: 100 mls/hr Documented By: LINDSEY Ondansetron HCl (Ondansetron Inj 2 Mg/Ml 2 Ml Vial) 4 mg IV NOW STA Stop: 03/08/24 12:15 Last Admin: 03/08/24 12:20 Dose: 4 mg Documented By: LINDSEY Imaging Data Radiologist's Impression: Abdomen/Pelvis CT 03/08/24 12:14 CT OF THE ABDOMEN AND PELVIS WITHOUT CONTRAST CLINICAL HISTORY: Right flank pain. COMPARISON STUDY: CT of the abdomen and pelvis February 07, 2024. TECHNIQUE: Axial images of the abdomen and pelvis were obtained without IV contrast. Images were reviewed in the axial, sagittal, and coronal planes. Automated exposure control was utilized for the study. A dose lowering technique was utilized adhering to the principles of ALARA. FINDINGS: A partially visualized 1.5 cm nodular density within the left lower lobe on image 1 of 369 is similar to prior CT. No pneumatosis, free air or portal venous gas is present. There is no biliary ductal dilatation status post cholecystectomy. A tubular hyperdensity within the cholecystectomy bed has slightly decreased since prior exam. This favors resolving postsurgical change. Mild splenomegaly is unchanged. Adrenal glands and pancreas are unremarkable on unenhanced exam. Right ureteral stent is in place. Severe right hydroureteronephrosis is similar to prior CT. There are no ureteral calculi. Multiple bilateral renal calculi measure up to 7 mm. There is no evidence for a bowel obstruction status post partial colectomy with transverse colostomy. There is a moderate amount stool within the remaining transverse colon and cecum. The appendix is normal. There is no lymphadenopathy. There are no fluid collections. Mild stranding adjacent to the right renal pelvis is present. This is similar to prior CT. IMPRESSION: 1. Severe right hydroureteronephrosis, similar to prior CT. Right ureteral stent in place. No ureteral calculi. Mild stranding adjacent to the right renal pelvis and right ureter. 2. Bilateral nephrolithiasis. No left hydronephrosis. 3. No evidence for a bowel obstruction. Moderate amount of stool within the colon. 4. Partially visualized 1.5 cm nodular density within the left lower lobe. This is indeterminate and a nonemergent chest CT is recommended. ACT 112: Negative or not required by law. Electronically signed by: Nick Tena M.D. 03/08/2024 1:44 PM Discharge Plan Visit Data Chief Complaint: Kidney Stone Stated Complaint: KIDNEY STONE, BACK PAIN ED Provider: Antonietta Luong Discharge Problem: Complicated urinary tract infection, Intractable abdominal pain, Hydroureteronephrosis Forms Stand Alone Forms: My [facility] [place] [facility] Prescriptions Prescriptions: No Action clonazepam 1 mg tablet 1 mg PO TID levothyroxine 25 mcg tablet 25 mcg PO DAILYBB tamsulosin 0.4 mg capsule 0.4 mg PO DAILY PRN (Reason: Other) prednisone 1 mg tablet 2 mg PO DAILY Hold Instructions: Resume on 01/28/24. docusate sodium [Colace] 100 mg Capsule 200 mg PO DAILY omeprazole 20 mg capsule,delayed release(DR/EC) 20 mg PO QAM oxycodone 5 mg tablet 5 mg PO Q4 PRN (Reason: Severe Pain (Scale Score 7-10)) Rx Instructions: usually takes at night as needed. Q 4-6 hours calcium carbonate-vitamin D3 [Calcium 600 + D(3)] 600 mg-10 mcg (400 unit) Tablet 1 tab PO DAILY naloxone 4 mg/actuation spray,non-aerosol 4 mg INTRANASAL UD PRN (Reason: Other) Rx Instructions: [place] 1 spray into one nostril as directed for overdose, respiratory supression/slow infrequent breathing. Repeat in 3 minutes in the other nostril if no response. Call 911. carboxymethylcell-hypromellose 0.25-0.3 % Drops, Liquid Gel 1 drp OPHTHALMIC (EYE) BID carboxymethylcellulose sodium [TheraTears] 1 % Dropperette,Gel 1 drp OPHTHALMIC (EYE) BID cyanocobalamin (vitamin B-12) 1,000 mcg capsule 1,000 mcg PO DAILY Qty: 30 0RF phenazopyridine [Pyridium] 100 mg tablet 100 mg PO Q8H PRN (Reason: bladder spasms) Qty: 14 0RF potassium citrate-citric acid 1,100-334 mg/5 mL solution 5 ml PO DAILY Rx Instructions: 15 ml total daily prednisolone acetate 1 % drops,suspension 1 drp ophthalmic (eye) UD Rx Instructions: 1 drop affected eye qid. start 2 days prior to surgery. bring bottle to surgery. gabapentin 300 mg capsule 300 mg PO UD Rx Instructions: just took 3rd one last night 01/21 but thinks she wants to hold off on the medication. cefpodoxime 200 mg tablet 200 mg PO BID Qty: 12 0RF Rx Instructions: must administer with a meal/food phenazopyridine [Pyridium] 100 mg tablet 100 mg PO TID PRN (Reason: pain) Qty: 6 0RF Referrals Referrals: Caitie Aden DO [Primary Care Provider] -
[2024-03-08] MEDS: SODIUM CHLORIDE 0.9% 1,000 ML IV ONE (12:20)
[2024-03-08] MEDS: ONDANSETRON INJ 2 MG/ML 2 ML VIAL IV STA (12:20)
[2024-03-08] MEDS: HYDROmorphone INJ 0.5 MG/0.5 ML SYR IV STA ×2 (12:21→13:43)
[2024-03-08 12:33] LABS: Basophils # (auto) 0.01 K/uL (0.00-0.20); Basophils % (auto) 0.2 %; Hematocrit (blood only) 37.2 % (37.0-47.0); Hemoglobin 12.3 g/dl (12.0-16.0); Immature Granulocytes # (auto) 0.03 K/uL (0.01-0.20); Immature Granulocytes % (auto) 0.7 %; Lymphocytes # (auto) 0.68 K/uL (1.20-3.40); Lymphocytes % (auto) 14.8 %; Mean Corpuscular Hemoglobin 29.9 pg (25.0-34.0); Mean Corpuscular Hgb Conc 33.1 g/dL (32.0-36.0); Mean Corpuscular Volume 90.5 fL (80.0-100.0); Mean Platelet Volume 9.8 fL (9.4-12.4); Monocytes # (auto) 0.39 K/uL (0.11-0.59); Monocytes % (auto) 8.5 %; Neutrophils # (auto) 3.49 K/uL (1.40-6.50); Neutrophils % (auto) 75.8 %; Platelet Count 105 K/uL (130-400); RDW Coefficient of Variation 15.1 % (11.5-14.5); RDW Standard Deviation 50.6 fL (36.4-46.3); Red Blood Count 4.11 M/uL (4.20-5.40)
[2024-03-08 12:48] LABS: Albumin Globulin Ratio 1.1 (0.9-2); Albumin Level 4.2 gm/dl (3.4-5.0); BUN Creatinine Ratio 17.5 (10-20); Bilirubin,Total 0.7 mg/dl (0.2-1.0); Calcium 9.5 mg/dl (8.6-10.3); Creatinine Clr Calc Pharmacy 70.9 ml/min; Globulin 3.9 gm/dl (2.5-4.0); Potassium 3.8 mmol/L (3.5-5.1); Total Protein 8.1 gm/dl (6.0-8.3)
[2024-03-08 13:01] LABS: INR 0.9 (0.9-1.1); Prothrombin Time 10.3 Seconds (9.0-12.0)
[2024-03-08 13:11] LABS: Appearance Urine Cloudy (Clear); Bacteria Urine Automated 4+ (None Seen); Bilirubin Urine 1+ (Negative); Blood Urine 2+ (Negative); Color Urine Dark Yellow; Epithelial Cell Urine Auto 0-2 /hpf (0-2); Glucose Urine UA Negative (Negative); Ketones Urine Negative (Negative); Leukocyte Esterase Urine 3+ (Negative); Mucus Urine Present (None Prsent); Nitrite Urine Positive (Negative); Protein Urine 1+ (Negative); RBC Urine Automated >20 /hpf (0-2); Specific Gravity Urine 1.018 (1.000-1.030); Urobilinogen Urine Negative (Negative); WBC Urine Automated >50 /hpf (0-5); pH Urine 6.5 (4.5-7.5)
[2024-03-08 13:47] LABS: Adenovirus PCR Not Detected (NotDetected); Bordetella parapertussis PCR Not Detected (NotDetected); Bordetella pertussis PCR Not Detected (NotDetected); Chlamydia pneumoniae PCR Not Detected (NotDetected); Coronavirus 229E PCR Not Detected (NotDetected); Coronavirus CoV-2 (COVID19)PCR Not Detected (NotDetected); Coronavirus HKU1 PCR Not Detected (NotDetected); Coronavirus NL63 PCR Not Detected (NotDetected); Coronavirus OC43PCR Not Detected (NotDetected); Human Metapneumovirus PCR Not Detected (NotDetected); Influenza A PCR Not Detected (NotDetected); Influenza B PCR Not Detected (NotDetected); Mycoplasma pneumoniae PCR Not Detected (NotDetected); Parainfluenza Virus 1 PCR Not Detected (NotDetected); Parainfluenza Virus 2 PCR Not Detected (NotDetected); Parainfluenza Virus 3 PCR Not Detected (NotDetected); Parainfluenza Virus 4 PCR Not Detected (NotDetected); Respiratory Syncytial VirusPCR Not Detected (NotDetected); Rhinovirus/Enterovirus PCR Not Detected (NotDetected)
--- NOTE | 2024-03-08 13:47 | CT Scan Report ---
CT OF THE ABDOMEN AND PELVIS WITHOUT CONTRAST CLINICAL HISTORY: Right flank pain. COMPARISON STUDY: CT of the abdomen and pelvis February 07, 2024. TECHNIQUE: Axial images of the abdomen and pelvis were obtained without IV contrast. Images were revi ewed in the axial, sagittal, and coronal planes. Automated exposure control was utilized for the [place] dy. A dose lowering technique was utilized adhering to the principles of ALARA. FINDINGS: A partially visualized 1.5 cm nodular density within the left lower lobe on image 1 of 369 is similar to prior CT. No pneumatosis, free air or portal venous gas is present. There is no biliary ductal dilatation status post cholecystectomy. A tubular hyperdensity within the cholecystectomy bed has slightly decreased since prior exam. This favors resolving postsurgical change. Mild splenomegal y is unchanged. Adrenal glands and pancreas are unremarkable on unenhanced exam. Right ureteral stent is in place. Severe right hydroureteronephrosis is similar to prior CT. There are no ureteral calcul i. Multiple bilateral renal calculi measure up to 7 mm. There is no evidence for a bowel obstruction status post partial colectomy with transverse colostomy. There is a moderate amount stool within the remaining transverse colon and cecum. The appendix is normal. There is no lymphadenopathy. There are no fluid collections. Mild stranding adjacent to the right renal pelvis is present. This is similar t o prior CT. IMPRESSION: 1. Severe right hydroureteronephrosis, similar to prior CT. Right ureteral stent in place. No uretera l calculi. Mild stranding adjacent to the right renal pelvis and right ureter. 2. Bilateral nephrolithiasis. No left hydronephrosis. 3. No evidence for a bowel obstruction. Moderate amount of stool within the colon. 4. Partially visualized 1.5 cm nodular density within the left lower lobe. This is indeterminate and a nonemergent chest CT is recommended. ACT 112: Negative or not required by law. Electronically signed by: Nick Tena M.D. 03/08/2024 1:44 PM
[2024-03-08] MEDS: cefTRIAXone SODIUM 2,000 MG/50 ML BAG IV STA (14:04)
--- NOTE | 2024-03-08 14:17 | Urology Consultation ---
Date of Consultation March 08, 2024 Assessment & Plan (1) Hydroureteronephrosis: (2) Complicated urinary tract infection: (3) Ureteral stent present: (4) Right flank pain: Plan 63-year-old female with a chronic right ureteral stent (last exchanged 02/09/24) who presented to the ED with severe right flank pain with associated nausea vomiting. CT scan shows severe right hydroureteronephrosis, similar to prior CT, with the right ureteral stent in place, bilateral nephrolithiasis, no ureteral calculi, and no left hydronephrosis. - Afebrile and hemodynamically stable - Labs reviewed - Creatinine 0.80, WBC 4.60, Hemoglobin 12.3 - UA suggestive of infection, culture pending - Voiding spontaneously - No plan for intervention - CT reviewed and shows the right ureteral stent in position, b/l nephrolithiasis, no ureteral stones, and severe right hydronephrosis which may be chronic. - Pt is afebrile with stable vitals and normal renal function. Recommend continue with supportive care and antibiotic therapy. If she were to clinically deteriorate, may need to consider transfer for neph tube. - Continue Flomax and PRN Pyridium for stent management. - Would also recommend checking bladder scans/PVR to ensure she is emptying. - Please make NPO at midnight for reassessment in the morning. - Urology will follow. Plan reviewed with Dr. Bonilla. History of Present Illness History of Present Illness 63 year old female with a complicated history including rectal/colon cancer, radiation cystitis, colostomy status, and bilateral nephrolithiasis and right ureteral stricture managed with chronic right ureteral stent (last exchanged 02/09/24) who presented to the ED today with acute right flank pain with associated nausea and vomiting. On arrival she was afebrile and hemodynamically stable. Labs show no leukocytosis, hemoglobin 12.3, normal renal function. Urinalysis with 2+ blood, positive nitrite, 3+ LE, >50 WBC, >20 RBC, 4+ bacteria. ED course: IV fluids, Zofran, Dilaudid, Ceftriaxone. Urine culture pending. She is admitted to medicine service. CT abdomen pelvis- 1. Severe right hydroureteronephrosis, similar to prior CT. Right ureteral stent in place. No ureteral calculi. Mild stranding adjacent to the right renal pelvis and right ureter. 2. Bilateral nephrolithiasis. No left hydronephrosis. 3. No evidence for a bowel obstruction. Moderate amount of stool within the colon. 4. Partially visualized 1.5 cm nodular density within the left lower lobe. This is indeterminate and a nonemergent chest CT is recommended. Pt seen at bedside today. Awake and resting in bed on arrival. No acute distress. Still with right flank pain, managing with medication. No fever or chills. Some nausea, no vomiting. Reports she is voiding without issues. Has had some dysuria the past few days, was taking Pyridium. No hematuria. Feels she is emptying well. Allergies Allergy/AdvReac Type Severity Reaction Status Date / Time moxifloxacin [From Avelox] Allergy Severe Rash Verified 12/03/23 13:07 Penicillins Allergy Severe Hives Verified 12/03/23 13:07 Sulfa (Sulfonamide Allergy Severe Brain/Head Verified 12/03/23 13:07 Antibiotics) pressure cefoxitin Allergy Unknown Unknown Verified 12/03/23 13:07 vancomycin Allergy Unknown Unknown Verified 12/03/23 13:07 acetaminophen [From Tylenol] AdvReac Unknown Fever Verified 12/03/23 13:07 Antihistamines - Alkylamine AdvReac "skin Verified 12/03/23 13:07 crawling" with antihistamines Home Medications Medication Instructions Recorded Confirmed Type calcium 600 mg (as 1 tab PO DAILY 10/26/23 03/08/24 History carbonate)-vitamin D3 10 mcg (400 unit) tablet (Calcium 600 + D(3)) carboxymethylcellulose 1 drp ophthalmic (eye) BID PRN 10/26/23 03/08/24 History sod-hypromell 0.25 %-0.3 % eye Other liquid gel drops carboxymethylcellulose sodium 1 % 1 drp ophthalmic (eye) BID PRN 10/26/23 03/08/24 History eye gel in a dropperette Other (TheraTears) clonazepam 1 mg tablet 1 mg PO TID Anxiety/Insomnia 10/26/23 03/08/24 History docusate sodium 100 mg capsule 200 mg PO DAILY 10/26/23 03/08/24 History (Colace) levothyroxine 25 mcg tablet 25 mcg PO DAILYBB 10/26/23 03/08/24 History naloxone 4 mg/actuation nasal spray 4 mg intranasal UD PRN Other 10/26/23 03/08/24 History omeprazole 20 mg capsule,delayed 20 mg PO QAM 10/26/23 03/08/24 History release oxycodone 5 mg tablet 5 mg PO Q4 PRN Severe Pain (Scale 10/26/23 03/08/24 History Score 7-10) prednisone 1 mg tablet 2 mg PO DAILY 10/26/23 03/08/24 History tamsulosin 0.4 mg capsule 0.4 mg PO DAILY PRN Other 10/26/23 03/08/24 History cyanocobalamin (vitamin B-12) 1,000 mcg PO DAILY #30 caps 11/18/23 03/08/24 Rx 1,000 mcg capsule potassium citrate-citric acid 5 ml PO DAILY 01/23/24 03/08/24 History 1,100 mg-334 mg/5 mL oral solution prednisolone acetate 1 % eye 1 drp ophthalmic (eye) UD PRN Other 01/23/24 03/08/24 History drops,suspension phenazopyridine 100 mg tablet 100 mg PO TID PRN pain 6 doses #6 02/09/24 Rx (Pyridium) tabs Patient History Medical History Acute cholecystitis Sepsis Ureterolithiasis Hydronephrosis Ureteral calculi Renal colic on right side Nephrolithiasis Raynaud's disease Medullary sponge kidney Panic disorder Hypothyroidism Anal cancer Surgical History Hx laparoscopic cholecystectomy (01/24/24) Laparoscopic Cholecystectomy(Not Applicable)please add difficulty modifier - Pipe De Guzman DO H/O breast biopsy H/O dilation and curettage S/P tonsillectomy and adenoidectomy H/O wrist surgery H/O ventral hernia repair H/O colectomy Family History Other Family history non-contributory Social History Smoking Status: Never smoker Tobacco Type: Cigarettes Second Hand Exposure: Yes; Do You Dip or Chew Tobacco: No; Hx Alcohol Use: No Hx Substance Use: No Preferred Language: Irish Communication Ability: Effective Visual Impairment: No Limitations Cup Setter Lockstitch Required: No Beliefs That Will Affect Care: None Current Living Situation: Spouse Feels Safe at Home: Yes Assistive Devices: None Review of Systems Review of Systems: All systems reviewed & are unremarkable except as noted in HPI & below Physical Exam Constitutional: no acute distress Respiratory: no respiratory distress and no labored breathing Musculoskeletal: Head/Neck/Chest: normocephalic Neurologic: moves all extremities and awake Psychiatric: A+Ox3, euthymic affect Results & Data Vital Signs (Past 12 Hours) Vital Signs Temp Pulse Resp BP BP Pulse Ox O2 Del Method 03/08/24 13:05 83 03/08/24 12:53 86 16 96 Room Air 03/08/24 12:12 19 114/64 98 Room Air 03/08/24 11:47 36.6 C 91 H 20 112/67 97 Room Air PG Care Time/CCT Total # of Minutes Spent Total Time Spent with Patient: Total time spent is greater than 50% in coordination of care (as documented) at patient's floor/unit and/or counseling patient: Coding Level of Care Code 01295 IN/OBS CONSULT LVL 3,45M Diagnoses Hydroureteronephrosis N13.30 Complicated urinary tract infection N39.0 Ureteral stent present Z96.0 Right flank pain R10.9
--- NOTE | 2024-03-08 15:20 | History & Physical Report ---
Date of Service March 08, 2024 Assessment & Plan (1) Right flank pain: Plan: Patient presents to the hospital on account of acute right flank pain Has a history of severe right hydroureteronephrosis with ureteral stent in place CT scan of the abdomen pelvis today showed evidence of severe right hydro nephroureteral similar to before will continue pain management Consult urology Continue Flomax pain control: Oxycodone, Dilaudid and Pyridium (2) Complicated urinary tract infection: Plan: 2. UTI: Urinalysis shows evidence of UTI Obtain urine for urine cultures Empirically start IV ceftriaxone (3) Sjogrens syndrome: Plan: SLE (systemic lupus erythematosus): Chronic. Patient with Sjogren's as well, on chronic prednisone therapy. Stable -Continue Prednisone 2mg po daily (4) Hydroureteronephrosis: Plan admit to med surg full code History of Present Illness Chief Complaint: flank pain Primary Care Provider: Caitie Aden DO This is a 63-year-old female with a history of erectile: #, Status post radiation, colostomy, bilateral nephrolithiasis, right ureteral stricture status post right ureteral stent who presents to the hospital today following right flank pain. According to the patient and corroborated by the at the bedside, patient has been experiencing some low-level right flank pain which she thought she could handle. She took Tylenol, then later Elysian however the pain worsened and this made her come to the hospital for further evaluation. Here in the emergency department CBC and BMP were done, urinalysis showed evidence of UTI. CT scan of the abdomen pelvis was also done which showed evidence of severe right hydro ureteral nephrosis similar to prior CT and also right ureteral stent in place, no calculi. Patient will be admitted to the hospital, neurology consulted for further evaluation further management. Allergies Allergy/AdvReac Type Severity Reaction Status Date / Time moxifloxacin [From Avelox] Allergy Severe Rash Verified 12/03/23 13:07 Penicillins Allergy Severe Hives Verified 12/03/23 13:07 Sulfa (Sulfonamide Allergy Severe Brain/Head Verified 12/03/23 13:07 Antibiotics) pressure cefoxitin Allergy Unknown Unknown Verified 12/03/23 13:07 vancomycin Allergy Unknown Unknown Verified 12/03/23 13:07 acetaminophen [From Tylenol] AdvReac Unknown Fever Verified 12/03/23 13:07 Antihistamines - Alkylamine AdvReac "skin Verified 12/03/23 13:07 crawling" with antihistamines Home Medications Medication Instructions Recorded Confirmed Type calcium 600 mg (as 1 tab PO DAILY 10/26/23 03/08/24 History carbonate)-vitamin D3 10 mcg (400 unit) tablet (Calcium 600 + D(3)) carboxymethylcellulose 1 drp ophthalmic (eye) BID PRN 10/26/23 03/08/24 History sod-hypromell 0.25 %-0.3 % eye Other liquid gel drops carboxymethylcellulose sodium 1 % 1 drp ophthalmic (eye) BID PRN 10/26/23 03/08/24 History eye gel in a dropperette Other (TheraTears) clonazepam 1 mg tablet 1 mg PO TID Anxiety/Insomnia 10/26/23 03/08/24 History docusate sodium 100 mg capsule 200 mg PO DAILY 10/26/23 03/08/24 History (Colace) levothyroxine 25 mcg tablet 25 mcg PO DAILYBB 10/26/23 03/08/24 History naloxone 4 mg/actuation nasal spray 4 mg intranasal UD PRN Other 10/26/23 03/08/24 History omeprazole 20 mg capsule,delayed 20 mg PO QAM 10/26/23 03/08/24 History release oxycodone 5 mg tablet 5 mg PO Q4 PRN Severe Pain (Scale 10/26/23 03/08/24 History Score 7-10) prednisone 1 mg tablet 2 mg PO DAILY 10/26/23 03/08/24 History tamsulosin 0.4 mg capsule 0.4 mg PO DAILY PRN Other 10/26/23 03/08/24 History cyanocobalamin (vitamin B-12) 1,000 mcg PO DAILY #30 caps 11/18/23 03/08/24 Rx 1,000 mcg capsule potassium citrate-citric acid 5 ml PO DAILY 01/23/24 03/08/24 History 1,100 mg-334 mg/5 mL oral solution prednisolone acetate 1 % eye 1 drp ophthalmic (eye) UD PRN Other 01/23/24 03/08/24 History drops,suspension phenazopyridine 100 mg tablet 100 mg PO TID PRN pain 6 doses #6 02/09/24 03/08/24 Rx (Pyridium) tabs Past Med/Surg History Problem List (Updated 02/25/24 @ 00:08 by Diomedes Ferrari) Right flank pain Ureteral stent present Hydroureteronephrosis (Acute) Intractable abdominal pain (Acute) Complicated urinary tract infection (Acute) Ureteral stent retained (Acute) Hydronephrosis (Acute) Acute right flank pain (Acute) Left-sided chest pain (Acute) Sjogrens syndrome LIP (lymphoid interstitial pneumonitis) ILD (interstitial lung disease) Multiple idiopathic pulmonary cysts Anxiety Chest pain Enterococcal bacteremia Colostomy status SLE (systemic lupus erythematosus) Secondary thrombocytopenia Pancytopenia History of creation of ostomy (Acute) Medical History Acute cholecystitis Sepsis Ureterolithiasis Hydronephrosis Ureteral calculi Renal colic on right side Nephrolithiasis Raynaud's disease Medullary sponge kidney Panic disorder Hypothyroidism Anal cancer Surgical History Hx laparoscopic cholecystectomy (01/24/24) Laparoscopic Cholecystectomy(Not Applicable)please add difficulty modifier - Pipe De Guzman DO H/O breast biopsy H/O dilation and curettage S/P tonsillectomy and adenoidectomy H/O wrist surgery H/O ventral hernia repair H/O colectomy Family History Other Family history non-contributory Social History Smoking Status: Never smoker Tobacco Type: Cigarettes Second Hand Exposure: Yes; Do You Dip or Chew Tobacco: No; Hx Alcohol Use: No Hx Substance Use: No Preferred Language: Lithuanian Communication Ability: Effective Visual Impairment: No Limitations Trap Puller Required: No Beliefs That Will Affect Care: None Current Living Situation: Spouse Feels Safe at Home: Yes Assistive Devices: None Review of Systems Review of Systems: All systems reviewed are negative, apart from the ones contained in the history. Physical Exam Physical Exam: The patient is awake, alert and oriented 3, well developed and well nourished, normocephalic and atraumatic, lying in bed and in no acute distress. HEENT--PERRL, EOMI, mucous membranes and oropharynx mildly dry Neck--supple. No JVD. No bruits. Thyroid normal, trachea midline, no adenopathy. Heart--normal S1 and S2. No murmurs, rubs or gallops. Lungs--clear bilaterally, no respiratory distress, no accessory muscle use. Abdomen--normal bowel sounds and soft. Extremities--no cyanosis or clubbing. No edema. Dermatologic--normal skin turgor, normal color, no abnormal lymph nodes, no rash. Neurologic--cranial nerves II through XII grossly intact. Rheumatologic--normal range of motion. Psychiatric--normal affect. Results & Data Results & Data Vital Signs (Past 12 Hours) Vital Signs Temp Pulse Pulse Resp BP BP Pulse Ox 03/08/24 14:00 79 12 105/63 95 03/08/24 13:05 83 03/08/24 12:53 86 16 96 03/08/24 12:12 19 114/64 98 03/08/24 11:47 97.9 F 91 H 20 112/67 97 O2 Del Method 03/08/24 14:00 Room Air 03/08/24 13:05 03/08/24 12:53 Room Air 03/08/24 12:12 Room Air 03/08/24 11:47 Room Air PG Care Time/CCT Total # of Minutes Spent Total Time Spent with Patient: Total time spent is greater than 50% in coordination of care (as documented) at patient's floor/unit and/or counseling patient: Coding Level of Care Code 08579 INT INP/OBS CARE 3/75MIN Diagnoses Right flank pain R10.9 Complicated urinary tract infection N39.0 Sjogrens syndrome M35.00 Hydroureteronephrosis N13.30 Time Spent (min) 75
[2024-03-08] MEDS ORDERED: GABAPENTIN 300 MG CAP PO SCH (16:13)
[2024-03-08] MEDS ORDERED: TAMSULOSIN HCL 0.4 MG CAP PO PRN (16:13)
[2024-03-08] MEDS: HYDROmorphone INJ 1 MG/ML SYRINGE IV PRN ×2 (16:23→20:03)
[2024-03-08] MEDS: oxyCODONE HCL IR 5 MG TAB (IMMEDIATE RELEASE) PO PRN (17:31)
[2024-03-08] MEDS: ARTIFICIAL TEARS OP SCH (20:13)
[2024-03-08] MEDS: clonazePAM 1 MG TAB PO SCH (20:14)
[2024-03-09] MEDS: ACETAMINOPHEN 500 MG TAB PO PRN (02:12)
[2024-03-09] MEDS: LEVOTHYROXINE SODIUM 25 MCG TABLET PO SCH (06:02)
--- NOTE | 2024-03-09 06:56 | Electrocardiogram Report ---
Test Reason : Blood Pressure : */* mmHG Vent. Rate : 78 BPM Atrial Rate : 78 BPM P-R Int : 180 ms QRS Dur : 98 ms QT Int : 364 ms P-R-T Axes : 77 -38 52 degrees QTcB Int : 414 ms Normal sinus rhythm Left axis deviation Low voltage QRS Abnormal ECG When compared with ECG of 07-Feb-2024 16:00, Premature ventricular complexes are no longer Present Confirmed by Hossein Shea ([id number]) on 03/09/2024 6:55:42 AM Referred By: Confirmed By: Hossein Shea
[2024-03-09 08:27] LABS: Hematocrit (blood only) 33.4 % (37.0-47.0); Mean Corpuscular Hgb Conc 32.9 g/dL (32.0-36.0); Mean Platelet Volume 10.7 fL (9.4-12.4); Platelet Count 86 K/uL (130-400); RDW Coefficient of Variation 15.2 % (11.5-14.5); RDW Standard Deviation 50.5 fL (36.4-46.3); Red Blood Count 3.67 M/uL (4.20-5.40); White Blood Count 2.98 K/ul (4.8-10.8)
[2024-03-09 08:38] LABS: BUN Creatinine Ratio 15.1 (10-20); Calcium 8.7 mg/dl (8.6-10.3); Potassium 3.6 mmol/L (3.5-5.1)
--- NOTE | 2024-03-09 08:50 | Urology Progress Note ---
Date of Service March 09, 2024 Assessment & Plan (1) Right flank pain: (2) Hydroureteronephrosis: (3) Ureteral stent present: (4) Complicated urinary tract infection: Plan 63-year-old female with a chronic right ureteral stent (last exchanged 02/09/24) who presented to the ED with severe right flank pain with associated nausea vomiting. CT scan shows severe right hydroureteronephrosis, similar to prior CT, with the right ureteral stent in place, bilateral nephrolithiasis, no ureteral calculi, and no left hydronephrosis. - Afebrile and hemodynamically stable. - Labs reviewed - Creatinine 0.86, WBC 2.98, Hemoglobin 11.0. - Urine culture prelim with Enterococcus. - Voiding spontaneously. - No plan for intervention, okay for diet today. - Recommend continue with supportive care and antibiotic therapy. - If she were to clinically deteriorate, may need to consider transfer for percutaneous nephrostomy tube. - Continue Flomax and PRN Pyridium for stent management. - Recommend bladder scans/PVR as needed to ensure she is emptying. - Will arrange outpatient f/u with our service. - will sign off, please contact our service with any additional questions or changes to patient's status. Admission and Anticipated Discharge Date Admission Date: March 08, 2024 Subjective Patient seen and examined at bedside. She is awake and resting in bed. No acute issues overnight. Reports mild right flank discomfort, tolerable. She is voiding spontaneously. Reports some urinary frequency, dysuria and hematuria. No fever or chills. Review of Systems Constitutional: as per Subjective / HPI Genitourinary: as per Subjective / HPI Physical Exam Constitutional: well developed and well nourished; no acute distress Respiratory: normal respiratory effort; no respiratory distress and no labored breathing Gastrointestinal (Abdomen): Inspection/Auscultation: abdomen normal to inspection Musculoskeletal: Head/Neck/Chest: normocephalic Neurologic: moves all extremities and awake Psychiatric: Orientation: alert and oriented x 3 Results & Data Vital Signs (Past 12 Hours) Vital Signs Temp Pulse Resp BP Pulse Ox O2 Del Method 03/09/24 07:50 36.5 C 79 16 90/56 L 96 Room Air PG Care Time/CCT Total # of Minutes Spent Total Time Spent with Patient: Total time spent is greater than 50% in coordination of care (as documented) at patient's floor/unit and/or counseling patient: Coding Level of Care Code 15807 SUB INP/OBS CARE 03/27MIN Diagnoses Right flank pain R10.9 Hydroureteronephrosis N13.30 Ureteral stent present Z96.0 Complicated urinary tract infection N39.0
[2024-03-09] MEDS: DOCUSATE SODIUM 100 MG CAP PO SCH (08:59)
[2024-03-09] MEDS: predniSONE 1 MG TAB PO SCH (08:59)
[2024-03-09] MEDS: CALCIUM 600MG + VIT D 400 IU TAB PO SCH (09:00)
[2024-03-09] MEDS: CYANOCOBALAMIN (B-12) 500 MCG TABLET PO SCH (09:00)
--- NOTE | 2024-03-09 11:19 | Hospitalist Progress Note ---
Date of Service March 09, 2024 Assessment & Plan (1) Right flank pain: Plan: Patient presents to the hospital on account of acute right flank pain Has a history of severe right hydroureteronephrosis with ureteral stent in place CT scan of the abdomen pelvis today showed evidence of severe right hydro nephroureteral similar to before will continue pain management Consult urology, no surgical plans Continue Flomax pain control: Oxycodone, Dilaudid and Pyridium (2) Complicated urinary tract infection: Plan: 2. UTI: Urinalysis shows evidence of UTI urine cultures growing E fecalis Discontinue Ceftriaxone, start Daptomycin (3) Sjogrens syndrome: Plan: SLE (systemic lupus erythematosus): Chronic. Patient with Sjogren's as well, on chronic prednisone therapy. Stable -Continue Prednisone 2mg po daily (4) Hydroureteronephrosis: Plan admit to med surg full code hopefully d/c in the next 24 - 48 hrs Admission and Anticipated Discharge Date Admission Date: March 08, 2024 Subjective patient seen and examined, says pain is under better control Review of Systems Review of Systems: All systems reviewed are negative, apart from the ones contained in the history. Physical Exam Physical Exam: The patient is awake, alert and oriented 3, well developed and well nourished, normocephalic and atraumatic, lying in bed and in no acute distress. HEENT--PERRL, EOMI, mucous membranes and oropharynx mildly dry Neck--supple. No JVD. No bruits. Thyroid normal, trachea midline, no adenopathy. Heart--normal S1 and S2. No murmurs, rubs or gallops. Lungs--clear bilaterally, no respiratory distress, no accessory muscle use. Abdomen--normal bowel sounds and soft. Extremities--no cyanosis or clubbing. No edema. Dermatologic--normal skin turgor, normal color, no abnormal lymph nodes, no rash. Neurologic--cranial nerves II through XII grossly intact. Rheumatologic--normal range of motion. Psychiatric--normal affect. Results & Data Results & Data Vital Signs (Past 12 Hours) Vital Signs Temp Pulse Resp BP Pulse Ox O2 Del Method 03/09/24 07:50 97.7 F 79 16 90/56 L 96 Room Air PG Care Time/CCT Total # of Minutes Spent Total Time Spent with Patient: Total time spent is greater than 50% in coordination of care (as documented) at patient's floor/unit and/or counseling patient: Coding Level of Care Code 63106 SUB INP/OBS CARE 2/35MIN Diagnoses Right flank pain R10.9 Complicated urinary tract infection N39.0 Sjogrens syndrome M35.00 Hydroureteronephrosis N13.30 Time Spent (min) 35
--- NOTE | 2024-03-09 11:37 | Surgery Progress Note ---
Date of Service March 09, 2024 Assessment & Plan (1) Hx laparoscopic cholecystectomy: Plan: Doing well. Discussed her pathology report. Discussed progression of her activities what she may and may not do. Follow-up as needed Admission and Anticipated Discharge Date Admission Date: March 08, 2024 Subjective Patient is here couple weeks status post laparoscopic cholecystectomy. She was post to see me tomorrow in the office but I will see her here instead. She is having no issues. In fact her left upper quadrant pain where her adhesions were has much improved since we took those down. She is eating and bowels are moving. Physical Exam Physical Exam: Alert no acute distress Her incisions are all well-healed with no sign of infection. Stoma is functioning Results & Data Vital Signs (Past 12 Hours) Vital Signs Temp Pulse Resp BP Pulse Ox O2 Del Method 03/09/24 07:50 36.5 C 79 16 90/56 L 96 Room Air PG Care Time/CCT Total # of Minutes Spent Total Time Spent with Patient: Total time spent is greater than 50% in coordination of care (as documented) at patient's floor/unit and/or counseling patient: Coding Level of Care Code 07297 Post Operative Follow-Up Diagnoses Hx laparoscopic cholecystectomy Z90.49
[2024-03-09] MEDS: DAPTOmycin 375 MG in SYRINGE 0 ML IV SCH (11:42)
[2024-03-09] MEDS ORDERED: cefTRIAXone SODIUM 2,000 MG/50 ML BAG IV SCH (14:00)
[2024-03-10] MEDS: PHENAZOPYRIDINE HCL 100 MG TAB PO PRN (02:50)
[2024-03-10 08:55] LABS: Hematocrit (blood only) 36.1 % (37.0-47.0); Hemoglobin 11.9 g/dl (12.0-16.0); Mean Corpuscular Hemoglobin 29.6 pg (25.0-34.0); Mean Corpuscular Volume 89.8 fL (80.0-100.0); Platelet Count 102 K/uL (130-400); RDW Coefficient of Variation 14.8 % (11.5-14.5); RDW Standard Deviation 48.7 fL (36.4-46.3); Red Blood Count 4.02 M/uL (4.20-5.40); White Blood Count 2.88 K/ul (4.8-10.8)
[2024-03-10 09:02] LABS: BUN Creatinine Ratio 20.3 (10-20); Calcium 9.3 mg/dl (8.6-10.3); Creatinine Clr Calc Pharmacy 71.8 ml/min; Potassium 3.7 mmol/L (3.5-5.1)
--- NOTE | 2024-03-10 10:59 | Hospitalist Progress Note ---
Date of Service March 10, 2024 Assessment & Plan (1) Right flank pain: Plan: Patient presents to the hospital on account of acute right flank pain Has a history of severe right hydroureteronephrosis with ureteral stent in place CT scan of the abdomen pelvis today showed evidence of severe right hydro nephroureteral similar to before will continue pain management Consult urology, no surgical plans Continue Flomax pain control: Oxycodone, Dilaudid and Pyridium (2) Complicated urinary tract infection: Plan: 2. UTI: Urinalysis shows evidence of UTI urine cultures growing E fecalis perkins sensitive start PO cipro (3) Sjogrens syndrome: Plan: SLE (systemic lupus erythematosus): Chronic. Patient with Sjogren's as well, on chronic prednisone therapy. Stable -Continue Prednisone 2mg po daily (4) Hydroureteronephrosis: Plan admit to med surg full code hopefully d/c today Admission and Anticipated Discharge Date Admission Date: March 08, 2024 Subjective patient seen and examined, feels better, pain is under better conytrol Review of Systems Review of Systems: All systems reviewed are negative, apart from the ones contained in the history. Physical Exam Physical Exam: The patient is awake, alert and oriented 3, well developed and well nourished, normocephalic and atraumatic, lying in bed and in no acute distress. HEENT--PERRL, EOMI, mucous membranes and oropharynx mildly dry Neck--supple. No JVD. No bruits. Thyroid normal, trachea midline, no adenopathy. Heart--normal S1 and S2. No murmurs, rubs or gallops. Lungs--clear bilaterally, no respiratory distress, no accessory muscle use. Abdomen--normal bowel sounds and soft. Extremities--no cyanosis or clubbing. No edema. Dermatologic--normal skin turgor, normal color, no abnormal lymph nodes, no rash. Neurologic--cranial nerves II through XII grossly intact. Rheumatologic--normal range of motion. Psychiatric--normal affect. Results & Data Results & Data Vital Signs (Past 12 Hours) Vital Signs Temp Pulse Resp BP BP Pulse Ox O2 Del Method 03/10/24 07:27 97.9 F 78 16 82/47 L 86/51 L 97 Room Air PG Care Time/CCT Total # of Minutes Spent Total Time Spent with Patient: Total time spent is greater than 50% in coordination of care (as documented) at patient's floor/unit and/or counseling patient: Coding Level of Care Code 04203 SUB INP/OBS CARE 2/35MIN Diagnoses Right flank pain R10.9 Complicated urinary tract infection N39.0 Sjogrens syndrome M35.00 Hydroureteronephrosis N13.30 Time Spent (min) 35
--- NOTE | 2024-03-10 12:52 | Urology Progress Note ---
Date of Service March 10, 2024 Assessment & Plan (1) Right flank pain: (2) Hydroureteronephrosis: (3) Ureteral stent present: (4) Complicated urinary tract infection: Plan 63-year-old female with a chronic right ureteral stent (last exchanged 02/09/24) who presented to the ED with severe right flank pain with associated nausea vomiting. CT scan shows severe right hydroureteronephrosis, similar to prior CT, with the right ureteral stent in place, bilateral nephrolithiasis, no ureteral calculi, and no left hydronephrosis. - Afebrile and hemodynamically stable. - Labs reviewed - Creatinine 0.79, WBC 2.88, Hemoglobin 11.9. - Urine culture final with Enterococcus. - Voiding spontaneously. - No plan for acute intervention. - Recommend continue with supportive care and antibiotic therapy. - Continue Flomax and PRN Pyridium for stent management. - Recommend bladder scans/PVR as needed to ensure she is emptying. - If she were to clinically deteriorate, may need to consider transfer for percutaneous nephrostomy tube. - Message sent to our office to reschedule outpatient follow-up - Pt aware. - will sign off, please contact our service with any additional questions/concerns. Admission and Anticipated Discharge Date Admission Date: March 08, 2024 Subjective Patient seen and examined at bedside. She is awake and resting in bed. No acute issues overnight. Reports mild right flank discomfort, improved/tolerable. She is voiding spontaneously. Reports some urinary frequency, dysuria and hematuria. No fever or chills. Review of Systems Constitutional: as per Subjective / HPI Genitourinary: as per Subjective / HPI Physical Exam Constitutional: well developed and well nourished; no acute distress Respiratory: normal respiratory effort; no respiratory distress and no labored breathing Neurologic: awake Psychiatric: Orientation: alert and oriented x 3 Results & Data Vital Signs (Past 12 Hours) Vital Signs Temp Pulse Resp BP BP Pulse Ox O2 Del Method 03/10/24 11:04 77 99/61 L 03/10/24 07:27 36.6 C 78 16 82/47 L 86/51 L 97 Room Air PG Care Time/CCT Total # of Minutes Spent Total Time Spent with Patient: Total time spent is greater than 50% in coordination of care (as documented) at patient's floor/unit and/or counseling patient: Coding Level of Care Code 79571 SUB INP/OBS CARE 2/35MIN Diagnoses Right flank pain R10.9 Hydroureteronephrosis N13.30 Ureteral stent present Z96.0 Complicated urinary tract infection N39.0
[2024-03-10 20:55] VITALS: O2SAT 98
[2024-03-10] MEDS ORDERED: CIPROFLOXACIN 500 MG TAB PO SCH (21:00)
[2024-03-11 07:23] VITALS: BP 91/49; PULSE 73; RESP 18; TEMP 97.5
[2024-03-11] MEDS: levoFLOXacin 750 MG TAB PO SCH (09:09)
--- NOTE | 2024-03-11 10:25 | Discharge Summary ---
Date of Service March 11, 2024 Admission HPI Per Admitting Provider This is a 63-year-old female with a history of erectile: #, Status post radiation, colostomy, bilateral nephrolithiasis, right ureteral stricture status post right ureteral stent who presents to the hospital today following right flank pain. According to the patient and corroborated by the at the bedside, patient has been experiencing some low-level right flank pain which she thought she could handle. She took Tylenol, then later [place] however the pain worsened and this made her come to the hospital for further evaluation. Here in the emergency department CBC and BMP were done, urinalysis showed evide nce of UTI. CT scan of the abdomen pelvis was also done which showed evidence of severe right hydro ureteral nephrosis similar to prior CT and also right ureteral stent in place, no calculi. Patient will be admitted to the hospital, neurology consulted for further evaluation further management. Admission Exam (Per Admitting) Constitutional The patient is awake, alert and oriented 3, well developed and well nourished, normocephalic and atraumatic, lying in bed and in no acute distress. HEENT--PERRL, EOMI, mucous membranes and oropharynx mildly dry Neck--supple. No JVD. No bruits. Thyroid normal, trachea midline, no adenopathy. Heart--normal S1 and S2. No murmurs, rubs or gallops. Lungs--clear bilaterally, no respiratory distress, no accessory muscle use. Abdomen--normal bowel sounds and soft. Extremities--no cyanosis or clubbing. No edema. Dermatologic--normal skin turgor, normal color, no abnormal lymph nodes, no rash. Neurologic--cranial nerves II through XII grossly intact. Rheumatologic--normal range of motion. Psychiatric--normal affect. Discharge Data Consultations 03/08/24 13:48 Consult Urology Routine 03/08/24 14:11 ED Decision to Admit Stat Hospital Course (1) Right flank pain: Patient presents to the hospital on account of acute right flank pain Has a history of severe right hydroureteronephrosis with ureteral stent in place CT scan of the abdomen pelvis today showed evidence of severe right hydro nephroureteral similar to before will continue pain management Consult urology, no surgical plans Continue Flomax pain control: Oxycodone, Dilaudid and Pyridium outpatient follow up wit Urology (2) Complicated urinary tract infection: 2. UTI: Urinalysis shows evidence of UTI urine cultures growing E fecalis perkins sensitive d/c on PO Levaquin 750mg for 5 days (3) Sjogrens syndrome: SLE (systemic lupus erythematosus): Chronic. Patient with Sjogren's as well, on chronic prednisone therapy. Stable -Continue Prednisone 2mg po daily (4) Hydroureteronephrosis: Plan hopefully d/c today Coding Level of Care Code 81161 INP/OBS DISCH >30 MIN Diagnoses Right flank pain R10.9 Complicated urinary tract infection N39.0 Sjogrens syndrome M35.00 Hydroureteronephrosis N13.30 Time Spent (min) 35
== END 2024-03-11 11:40 | disposition home or self-care (01) | DRG 690 ==
LOC: ED 11:44 → 3W 14:51
DX: Z79.899 Other long term (current) drug therapy; Z90.49 Acquired absence of other specified parts of digestive tract; Z88.1 Allergy status to other antibiotic agents; Z88.0 Allergy status to penicillin; Z88.2 Allergy status to sulfonamides; B95.2 Enterococcus as the cause of diseases classified elsewhere; N13.6 Pyonephrosis; M32.9 Systemic lupus erythematosus, unspecified; Z88.8 Allergy status to other drugs, medicaments and biological substances; Z96.0 Presence of urogenital implants; Z88.6 Allergy status to analgesic agent; M35.00 Sjogren syndrome, unspecified; Z79.890 Hormone replacement therapy

== ENCOUNTER 2024-03-12 18:24 | Inpatient (IN) ==
--- NOTE | 2024-03-12 19:04 | Emergency Department Note ---
Impression & Plan Ureteral stent present, Complicated urinary tract infection, Right flank pain, Current chronic use of systemic steroids ED Provider Note NAME: MARII BERNABE AGE: 63 SEX: F : 1960 ARRIVES VIA: Walk-In INFORMANT: Patient ED PROVIDER(S): Roger Powell MD CHIEF COMPLAINT: Right flank pain PLAN: Disposition: Admit MEDICAL DECISION MAKING: The patient is a pleasant 63-year-old woman with a past medical history of SLE and Sjogrens on chronic prednisone, history of interstitial lung disease, history of rectal cancer status post partial colectomy and transverse colostomy, recent admission from 03/08-03/11 for complicated urinary infection in the setting of having hydronephrosis dating back to obstructing ureteral stone in November with recurrent need for stent placement who presents to the emergency department via walk-in, accompanied by her for evaluation of acute right flank pain that began this afternoon and worsened despite taking her prescribed oxycodone following discharge from this facility yesterday. She has any fevers. She denies any cough, congestion, chest pain, shortness of breath. She has been taking her prescribed Levaquin which was informed by her recent urine culture which grew E faecalis resistant to tetracycline. On evaluation patient is fatigued, uncomfortable no distress, afebrile with heart in the 110s and blood pressure 90s/40s and vital signs otherwise stable. She appears clinically dry. She has mild right flank and right lower abdominal discomfort without discrete tenderness. EKG without overt acute ischemia. CXR negative for acute cardiopulmonary process per my personal preliminary review/interpretation. WBC 3.6K without neutrophilia or left shift. H/H within normal limits. Platelets within normal limits. Chemistry without metabolic acidosis. BUNs/creatinine is 20 consistent with patient's clinically dry appearance. LFTs are unremarkable. High-sensitivity troponin is within normal limits. Procalcitonin is not elevated. UA is suspicious for persistence of infection with positive nitrites and WBCs but no bacteria. CT of the abdomen pelvis was performed and demonstrates persistent severe right- sided hydroureteronephrosis with ureteral stent appropriately positioned. Compared to prior CT in January mild increase in urothelial thickening is noted of the right ureter. Given concerns for sepsis patient was treated with IV fluid hydration with 2 L normal saline (> 30 cc/KG). Random cortisol also obtained and patient treated with stress dose of hydrocortisone given she is on chronic prednisone. Repeat doses of Dilaudid were provided. Given persistence of the patient's complicated UTI in the setting of return of her flank pain patient does agree with plan for admission for further management. Given persistence of urinary infection despite being on Levaquin patient was ordered for IV daptomycin at this time. Case was discussed with MARY Huertas hospitalist, who will evaluate the patient for admission. Further management per admitting team. Triage Nursing notes reviewed and agree them. Prior/external medical records reviewed Vital Signs: reviewed Differential diagnosis: Renal colic, UTI, appendicitis, diverticulitis, mesenteric ischemia, aortic pathology, infections, inflammatory bowel disease, PUD, biliary pathology, as well as other pathologies. ER treatment provided: See below. Diagnostics interpreted by me: ECG: Sinus tachycardia, 102 bpm, no ectopy, no overt ST elevation or depression, QTc 437, QRS 82. Cardiac Monitoring: An order for continuous cardiac monitoring was placed and demonstrated Sinus tachycardia, 102 bpm, no ectopy. Laboratory studies: See below Imaging studies: See below Consultation(s): MARY Huertas hospitalist. HPI: The patient is a pleasant 63-year-old woman with a past medical history of SLE and Sjogrens on chronic prednisone, history of interstitial lung disease, history of rectal cancer status post partial colectomy and transverse colostomy, recent admission from 03/08-03/11 for complicated urinary infection in the setting of having hydronephrosis dating back to obstructing ureteral stone in November with recurrent need for stent placement who presents to the emergency department via walk-in, accompanied by her for evaluation of acute right flank pain that began this afternoon and worsened despite taking her prescribed oxycodone following discharge from this facility yesterday. She has any fevers. She denies any cough, congestion, chest pain, shortness of breath. She has been taking her prescribed Levaquin which was informed by her recent urine culture which grew E faecalis resistant to tetracycline. ROS: See above HPI for pertinent positives & negatives. A total of 10 systems reviewed and were otherwise negative. VITALS:See Below PHYSICAL EXAMINATION: GENERAL: Awake, alert, fatigued-appearing, in no distress HENT: Normocephalic, atraumatic. Oropharynx with dry mucous membranes and otherwise unremarkable. EYES: Normal conjunctiva. Sclera non-icteric. NECK: Supple. No nuchal rigidity. FROM. No JVD. RESPIRATORY: Clear to auscultation. CARDIAC: Tachycardic rate, normal rhythm. Extremities warm and well perfused. Pulses equal. ABDOMEN: Soft, non-distended. Mild right flank and right lower abdominal discomfort without discrete tenderness. No rebound or guarding. Left lower colostomy site present and unremarkable. MUSCULOSKELETAL: Chest examination reveals no tenderness. The back is symmetrical on inspection without obvious abnormality. There is no CVA tenderness to palpation. No joint edema. LOWER EXTREMITIES: Calves are equal size bilaterally and non-tender. No edema. No discoloration. NEURO: Normal sensorium. No sensory or motor deficits noted. SKIN: No rash or jaundice noted. Roger Powell MD Past Med/Surg History Problem List (Updated 03/09/24 @ 11:37 by Pipe De Guzman DO) Current chronic use of systemic steroids (Acute) Right flank pain (Acute) Hx laparoscopic cholecystectomy (01/24/24) Laparoscopic Cholecystectomy(Not Applicable)please add difficulty modifier - Pipe De Guzman DO Right flank pain Ureteral stent present (Acute) Hydroureteronephrosis (Acute) Intractable abdominal pain (Acute) Complicated urinary tract infection (Acute) Ureteral stent retained (Acute) Hydronephrosis (Acute) Acute right flank pain (Acute) Left-sided chest pain (Acute) Sjogrens syndrome LIP (lymphoid interstitial pneumonitis) ILD (interstitial lung disease) Multiple idiopathic pulmonary cysts Anxiety Chest pain Enterococcal bacteremia Colostomy status SLE (systemic lupus erythematosus) Secondary thrombocytopenia Pancytopenia History of creation of ostomy (Acute) Medical History Acute cholecystitis Sepsis Ureterolithiasis Hydronephrosis Ureteral calculi Renal colic on right side Nephrolithiasis Raynaud's disease Medullary sponge kidney Panic disorder Hypothyroidism Anal cancer Surgical History Hx laparoscopic cholecystectomy (01/24/24) Laparoscopic Cholecystectomy(Not Applicable)please add difficulty modifier - Pipe De Guzman DO H/O breast biopsy H/O dilation and curettage S/P tonsillectomy and adenoidectomy H/O wrist surgery H/O ventral hernia repair H/O colectomy Family History Other Family history non-contributory Social History Smoking Status: Never smoker Tobacco Type: Cigarettes Second Hand Exposure: No; Do You Dip or Chew Tobacco: No; Hx Alcohol Use: No Hx Substance Use: No Preferred Language: Grenadian Communication Ability: Effective Visual Impairment: No Limitations Construction Specialist Required: No Beliefs That Will Affect Care: None Current Living Situation: Spouse Current Living Situation Comment: With Feels Safe at Home: Yes Assistive Devices: Denture - Upper, Denture - Lower and Glasses Allergies Allergies Allergy/AdvReac Type Severity Reaction Status Date / Time moxifloxacin [From Avelox] Allergy Severe Rash Verified 12/03/23 13:07 Penicillins Allergy Severe Hives Verified 12/03/23 13:07 Sulfa (Sulfonamide Allergy Severe Brain/Head Verified 12/03/23 13:07 Antibiotics) pressure cefoxitin Allergy Unknown Unknown Verified 12/03/23 13:07 vancomycin Allergy Unknown Unknown Verified 12/03/23 13:07 acetaminophen [From Tylenol] AdvReac Unknown Fever Verified 12/03/23 13:07 Antihistamines - Alkylamine AdvReac "skin Verified 12/03/23 13:07 crawling" with antihistamines Home Meds Home Medications Medication Instructions Recorded Confirmed calcium 600 mg (as 1 tab PO DAILY 10/26/23 03/12/24 carbonate)-vitamin D3 10 mcg (400 unit) tablet (Calcium 600 + D(3)) carboxymethylcellulose 1 drp ophthalmic (eye) BID PRN 10/26/23 03/12/24 sod-hypromell 0.25 %-0.3 % eye Other liquid gel drops carboxymethylcellulose sodium 1 % 1 drp ophthalmic (eye) BID PRN 10/26/23 03/12/24 eye gel in a dropperette Other (TheraTears) clonazepam 1 mg tablet 1 mg PO TID Anxiety/Insomnia 10/26/23 03/12/24 docusate sodium 100 mg capsule 200 mg PO DAILY 10/26/23 03/12/24 (Colace) levothyroxine 25 mcg tablet 25 mcg PO DAILYBB 10/26/23 03/12/24 naloxone 4 mg/actuation nasal spray 4 mg intranasal UD PRN Other 10/26/23 03/12/24 omeprazole 20 mg capsule,delayed 20 mg PO QAM 10/26/23 03/12/24 release oxycodone 5 mg tablet 5 mg PO Q4 PRN Severe Pain (Scale 10/26/23 03/12/24 Score 7-10) prednisone 1 mg tablet 2 mg PO DAILY 10/26/23 03/12/24 tamsulosin 0.4 mg capsule 0.4 mg PO DAILY PRN Other 10/26/23 03/12/24 potassium citrate-citric acid 5 ml PO DAILY 01/23/24 03/12/24 1,100 mg-334 mg/5 mL oral solution prednisolone acetate 1 % eye 1 drp ophthalmic (eye) UD PRN Other 01/23/24 03/12/24 drops,suspension Previous Rx's Medication Instructions Recorded cyanocobalamin (vitamin B-12) 1,000 mcg PO DAILY #30 caps 11/18/23 1,000 mcg capsule phenazopyridine 100 mg tablet 100 mg PO TID PRN pain 6 doses #6 02/09/24 (Pyridium) tabs levofloxacin 750 mg tablet 750 mg PO QAM 5 days #5 tabs 03/11/24 Results & Data (ED) Vital Signs Vital Signs - 24 hr 03/12/24 18:25 03/12/24 19:13 03/12/24 19:30 Temperature 36.6 C Temperature Source Oral Pulse Rate 110 H 85 84 Pulse Rate [Apical] Pulse Rate from SpO2 Sensor 83 Respiratory Rate 18 19 Respiratory Effort / Characteristics Respiratory Depth Respiratory Pattern Blood Pressure 92/45 L 112/67 Blood Pressure [Right Arm] Blood Pressure Mean 60 82 Blood Pressure Mean [Right Arm] Pulse Oximetry 98 100 Oxygen Delivery Method Room Air Sepsis Recent Fever Within 48 Hours No Sepsis New/Unexplained Change in Mental Status N/A Sepsis Action Taken by Nursing Physician Notified 03/12/24 19:45 03/12/24 21:00 03/12/24 21:30 Temperature Temperature Source Pulse Rate 77 73 Pulse Rate [Apical] Pulse Rate from SpO2 Sensor 77 72 Respiratory Rate 18 15 Respiratory Effort / Characteristics Non-Labored Spontaneous Respiratory Depth Normal Respiratory Pattern Blood Pressure 112/67 109/68 Blood Pressure [Right Arm] Blood Pressure Mean 82 81 Blood Pressure Mean [Right Arm] Pulse Oximetry 97 98 Oxygen Delivery Method Room Air Room Air Sepsis Recent Fever Within 48 Hours Sepsis New/Unexplained Change in Mental Status Sepsis Action Taken by Nursing 03/12/24 22:30 03/12/24 23:15 03/13/24 00:00 Temperature Temperature Source Pulse Rate 63 73 Pulse Rate [Apical] 71 Pulse Rate from SpO2 Sensor 64 Respiratory Rate 16 18 Respiratory Effort / Characteristics Non-Labored Spontaneous Respiratory Depth Normal Respiratory Pattern Regular Blood Pressure 95/56 L Blood Pressure [Right Arm] 118/61 Blood Pressure Mean 69 Blood Pressure Mean [Right Arm] 80 Pulse Oximetry 96 98 Oxygen Delivery Method Room Air Room Air Sepsis Recent Fever Within 48 Hours Sepsis New/Unexplained Change in Mental Status Sepsis Action Taken by Nursing Laboratory Data Attestation: I reviewed the patient's lab results. 03/12/24 18:51 03/12/24 18:51 Lab Results 03/12/24 03/12/24 03/12/24 Range/Units 18:45 18:50 18:51 WBC 3.63 L (4.8-10.8) K/ul RBC 4.53 (4.20-5.40) M/uL Hgb 13.5 (12.0-16.0) g/dl Hct 40.9 (37.0-47.0) % MCV 90.3 (80.0-100.0) fL MCH 29.8 (25.0-34.0) pg MCHC 33.0 (32.0-36.0) g/dL RDW Std Deviation 47.6 H (36.4-46.3) fL RDW Coeff of Bertha 14.4 (11.5-14.5) % Plt Count 137 (130-400) K/uL MPV 9.8 (9.4-12.4) fL Immature Gran % (Auto) 0.3 % Neut % (Auto) 68.8 % Lymph % (Auto) 22.9 % [place] % (Auto) 7.7 % Eos % (Auto) 0.0 % Baso % (Auto) 0.3 % Neut # (Auto) 2.50 (1.40-6.50) K/uL Lymph # (Auto) 0.83 L (1.20-3.40) K/uL [place] # (Auto) 0.28 (0.11-0.59) K/uL Eos # (Auto) 0.00 (0.00-0.50) K/uL Baso # (Auto) 0.01 (0.00-0.20) K/uL Immature Gran # (Auto) 0.01 (0.01-0.20) K/uL PT 11.1 (9.0-12.0) Seconds INR 1.0 (0.9-1.1) Sodium 136 (136-145) mmol/L Potassium 3.8 (3.5-5.1) mmol/L Chloride 103 (98-107) mmol/L Carbon Dioxide 27 (21-32) mmol/L Anion Gap 6 (3-11) BUN 17 (6-23) mg/dl Creatinine 0.82 (0.6-1.2) mg/dl Est Cr Clr Drug Dosing 67.8 ml/min eGFR 80.82 BUN/Creatinine Ratio 20.7 H (10-20) Glucose 96 (70-99(Fasting)) mg/dl Lactate 1.4 (0.4-2.0) mmol/L Calcium 10.0 (8.6-10.3) mg/dl Magnesium 1.8 (1.7-2.4) mg/dl Total Bilirubin 0.6 (0.2-1.0) mg/dl Direct Bilirubin 0.1 (0-0.2) mg/dl AST 21 (13-39) U/L ALT 23 (7-52) U/L Alkaline Phosphatase 73 (34-104) U/L Troponin I High Sens 2.6 (0-14) pg/ml Total Protein 8.6 H (6.0-8.3) gm/dl Albumin 4.4 (3.4-5.0) gm/dl Procalcitonin 0.02 (0-0.5) ng/ml Random Cortisol 5.15 mcg/dl Urine Color Dark Yellow Urine Appearance Cloudy A (Clear) Urine pH 6.0 (4.5-7.5) Ur Specific [place] 1.011 (1.000-1.030) Urine Protein 2+ H (Negative) Urine Glucose (UA) Negative (Negative) Urine Ketones Negative (Negative) Urine Blood 3+ H (Negative) Urine Nitrite Positive A (Negative) Urine Bilirubin Negative (Negative) Urine Urobilinogen Negative (Negative) Ur Leukocyte Esterase 3+ H (Negative) Urine WBC (Auto) >50 H (0-5) /hpf Urine RBC (Auto) >20 H (0-2) /hpf U Hyaline Cast (Auto) 0-2 (0-2) /lpf U Epithel Cells (Auto) 0-2 (0-2) /hpf Urine Bacteria (Auto) None Seen (None Seen) Administered Medications Hydromorphone HCl (Hydromorphone Inj 0.5 Mg/0.5 Ml Syr) 0.5 mg IV Q3H PRN PRN Reason: Pain (6,7,8,9,10) Stop: 03/27/24 02:13 Last Admin: 03/13/24 05:52 Dose: 0.5 mg Documented By: Admin: 03/13/24 02:42 Dose: 0.5 mg Documented By: MG Parenteral Electrolytes (Plasma-Lyte A Ph 7.4) 1,000 mls @ 150 mls/hr IV .Q6H40M [facility] Stop: 03/13/24 13:49 Last Admin: 03/13/24 01:34 Dose: 150 mls/hr Documented By: DLH Acetaminophen (Ofirmev) 1,000 mg in 100 mls @ 400 mls/hr IV Q8H [facility] Stop: 03/16/24 06:29 Last Infusion: 03/13/24 06:10 Dose: Infused Documented By: Admin: 03/13/24 05:53 Dose: 400 mls/hr Documented By: MG Levothyroxine Sodium (Levothyroxine Sodium 25 Mcg Tablet) 25 mcg PO DAILYBB [facility] Stop: 04/12/24 06:29 Last Admin: 03/13/24 04:31 Dose: 25 mcg Documented By: MG Discontinued Medications Hydromorphone HCl (Hydromorphone Inj 0.5 Mg/0.5 Ml Syr) 0.5 mg IV NOW STA Stop: 03/12/24 19:17 Last Admin: 03/12/24 19:23 Dose: 0.5 mg Documented By: QGV Hydromorphone HCl (Hydromorphone Inj 0.5 Mg/0.5 Ml Syr) 0.5 mg IV NOW STA Stop: 03/12/24 21:39 Last Admin: 03/12/24 21:55 Dose: 0.5 mg Documented By: QGV Hydromorphone HCl (Hydromorphone Inj 0.5 Mg/0.5 Ml Syr) 0.5 mg IV NOW STA Stop: 03/12/24 23:01 Last Admin: 03/12/24 23:33 Dose: 0.5 mg Documented By: MARIFER Hydromorphone HCl (Hydromorphone Inj 0.5 Mg/0.5 Ml Syr) 0.5 mg IV NOW STA Stop: 03/13/24 00:04 Last Admin: 03/13/24 00:20 Dose: 0.5 mg Documented By: MARIFER Hydromorphone HCl (Hydromorphone Inj 0.5 Mg/0.5 Ml Syr) 0.5 mg IV NOW STA Stop: 03/13/24 02:56 Last Admin: 03/13/24 03:00 Dose: 0.5 mg Documented By: MG Sodium Chloride (Nss) 1,000 mls @ 999 mls/hr IV .Q1H1M [facility] Stop: 03/12/24 20:45 Last Infusion: 03/12/24 21:34 Dose: Infused Documented By: Admin: 03/12/24 20:21 Dose: 999 mls/hr Documented By: Infusion: 03/12/24 20:21 Dose: Infused Documented By: Admin: 03/12/24 19:23 Dose: 999 mls/hr Documented By: QGV Acetaminophen 650 mg/ EMPTY (BAG) 65 mls @ 260 mls/hr IV NOW STA Stop: 03/12/24 19:19 Last Infusion: 03/12/24 20:21 Dose: Infused Documented By: Admin: 03/12/24 19:48 Dose: 260 mls/hr Documented By: QGV Daptomycin 425 mg/ Syringe 8.5 mls @ 4.25 mls/min IV NOW STA; Protocol Stop: 03/12/24 22:22 Last Admin: 03/12/24 23:33 Dose: 4.25 mls/min Documented By: MARIFER Ceftriaxone Sodium (Rocephin) 1,000 mg in 50 mls @ 100 mls/hr IV ONE STA Stop: 03/13/24 00:59 Last Infusion: 03/13/24 02:05 Dose: Infused Documented By: Admin: 03/13/24 01:34 Dose: 100 mls/hr Documented By: MARIFER Ioversol (Optiray 320 100ml) 90 ml IV ONCE ONE Stop: 03/12/24 20:34 Last Admin: 03/12/24 20:33 Dose: 90 ml Documented By: HOMERO Ondansetron HCl (Ondansetron Inj 2 Mg/Ml 2 Ml Vial) 4 mg IV NOW STA Stop: 03/12/24 19:17 Last Admin: 03/12/24 19:23 Dose: 4 mg Documented By: QGV Imaging Data Radiologist's Impression: Chest X-Ray 03/12/24 18:37 Exam(s): XR CXR 1 VIEW EXAM: XR Chest, 1 View CLINICAL HISTORY: Reason for exam: Sepsis. TECHNIQUE: Frontal view of the chest. COMPARISON: 02/07/24 FINDINGS: Lungs: Unremarkable. No consolidation. Pleural space: Unremarkable. No pleural effusion or pneumothorax. Heart: Unremarkable. No cardiomegaly or pulmonary vascular congestion. Bones/joints: No acute fracture. No dislocation. Soft tissues: Surgical clips project over the left chest, possibly within the left breast. IMPRESSION: No acute findings in the chest. Electronically signed by: Sandra To M.D. 03/12/24 20:43 PM Abdomen/Pelvis CT 03/12/24 19:58 Exam(s): CT ABDOMEN + PELVIS With Contrast IV Amt: OPTIRAY 320 90ML EXAM: CT Abdomen and Pelvis With Intravenous Contrast CLINICAL HISTORY: Reason for exam: right flank pain, ureteral stent, uti. TECHNIQUE: Axial computed tomography images of the abdomen and pelvis with intravenous contrast. CTDI is 9.31 mGy and DLP is 431.05 mGy-cm. Automated exposure control was utilized for the study. A dose lowering technique was utilized adhering to the principles of ALARA. CONTRAST: Patient received OPTIRAY 320 90ML of IV contrast COMPARISON: 02/07/24 FINDINGS: Lung bases: Unremarkable. ABDOMEN: Liver: Unremarkable. No mass. Gallbladder and bile ducts: Cholecystectomy. Small postoperative collection at the gallbladder fossa is decreased in size from prior. Enlarged common bile duct, similar to prior, potentially reservoir effect. No calcified duct stone identified. Pancreas: Unremarkable. No mass. No ductal dilation. Spleen: Splenomegaly measuring 16 cm, similar to prior. Adrenals: Unremarkable. No mass. Kidneys and ureters: Persistent severe right-sided hydroureteronephrosis with appropriately positioned right ureteral stent. Compared to prior exam, there is mildly increased urothelial thickening in the ureter. No change in nonobstructing bilateral kidney stones. No hydronephrosis of the left kidney. Small left kidney cyst; no follow-up indicated. Stomach and bowel: Postoperative changes of the colon. Anastomotic staple line at the rectum. Partial distal colectomy with oversewn distal colonic stump and left-sided colostomy. No bowel obstruction. PELVIS: Appendix: Normal appendix. Bladder: Unremarkable. No mass. Reproductive: Unremarkable as visualized. ABDOMEN and PELVIS: Intraperitoneal space: Unremarkable. No free air, significant free fluid, or fluid collection. Bones/joints: No acute fracture or dislocation. Osseous demineralization. Soft tissues: Left ventral hernia repair mesh. Vasculature: Unremarkable. No abdominal aortic aneurysm. Lymph nodes: Unremarkable. No enlarged lymph nodes. IMPRESSION: 1. Persistent severe right-sided hydroureteronephrosis with appropriately positioned right ureteral stent. Compared to prior exam, there is mildly increased urothelial thickening in the ureter. This appearance could be due to indwelling stent, but urinary tract infection is not excluded and correlation with urinalysis is recommended. 2. No change in nonobstructing bilateral kidney stones. 3. Cholecystectomy. Small postoperative collection at the gallbladder fossa is decreased in size from prior. Electronically signed by: Sandra To M.D. 03/12/24 22:13 PM Discharge Plan Visit Data Chief Complaint: Flank Pain Stated Complaint: RT KIDNEY PAIN, STENTS, HAD INFECTION ED Provider: Roger Powell Discharge Problem: Ureteral stent present, Complicated urinary tract infection, Right flank pain, Current chronic use of systemic steroids Patient Disposition: Admitted As Inpatient Discharge Instructions Interventions: ED Discharge Assessment Last Done: 03/13/24 01:43
[2024-03-12 19:08] LABS: Basophils # (auto) 0.01 K/uL (0.00-0.20); Basophils % (auto) 0.3 %; Hematocrit (blood only) 40.9 % (37.0-47.0); Hemoglobin 13.5 g/dl (12.0-16.0); Immature Granulocytes # (auto) 0.01 K/uL (0.01-0.20); Immature Granulocytes % (auto) 0.3 %; Lymphocytes # (auto) 0.83 K/uL (1.20-3.40); Lymphocytes % (auto) 22.9 %; Mean Corpuscular Hemoglobin 29.8 pg (25.0-34.0); Mean Corpuscular Volume 90.3 fL (80.0-100.0); Mean Platelet Volume 9.8 fL (9.4-12.4); Monocytes # (auto) 0.28 K/uL (0.11-0.59); Monocytes % (auto) 7.7 %; Neutrophils % (auto) 68.8 %; Platelet Count 137 K/uL (130-400); RDW Coefficient of Variation 14.4 % (11.5-14.5); RDW Standard Deviation 47.6 fL (36.4-46.3); Red Blood Count 4.53 M/uL (4.20-5.40); White Blood Count 3.63 K/ul (4.8-10.8)
[2024-03-12 19:23] LABS: Albumin Level 4.4 gm/dl (3.4-5.0); BUN Creatinine Ratio 20.7 (10-20); Bilirubin Direct 0.1 mg/dl (0-0.2); Bilirubin,Total 0.6 mg/dl (0.2-1.0); Creatinine Clr Calc Pharmacy 67.8 ml/min; Magnesium 1.8 mg/dl (1.7-2.4); Potassium 3.8 mmol/L (3.5-5.1); Total Protein 8.6 gm/dl (6.0-8.3)
[2024-03-12] MEDS: HYDROmorphone INJ 0.5 MG/0.5 ML SYR IV STA ×3 (19:23→23:33)
[2024-03-12] MEDS: SODIUM CHLORIDE 0.9% 1,000 ML IV SCH (19:23)
[2024-03-12] MEDS: ONDANSETRON INJ 2 MG/ML 2 ML VIAL IV STA (19:23)
[2024-03-12 19:29] LABS: Troponin I High Sensitivity 2.6 pg/ml (0-14)
[2024-03-12 19:39] LABS: Prothrombin Time 11.1 Seconds (9.0-12.0)
[2024-03-12] MEDS: ACETAMINOPHEN 10MG/ML Custom 650 MG in EMPTY BAG 0 ML IV STA (19:48)
[2024-03-12 19:49] LABS: Appearance Urine Cloudy (Clear); Bacteria Urine Automated None Seen (None Seen); Bilirubin Urine Negative (Negative); Blood Urine 3+ (Negative); Cast Urine Automated 0-2 /lpf (0-2); Color Urine Dark Yellow; Epithelial Cell Urine Auto 0-2 /hpf (0-2); Glucose Urine UA Negative (Negative); Ketones Urine Negative (Negative); Leukocyte Esterase Urine 3+ (Negative); Nitrite Urine Positive (Negative); Protein Urine 2+ (Negative); RBC Urine Automated >20 /hpf (0-2); Specific Gravity Urine 1.011 (1.000-1.030); Urobilinogen Urine Negative (Negative); WBC Urine Automated >50 /hpf (0-5)
[2024-03-12] MEDS: OPTIRAY 320 100ml IV ONE (20:33)
--- NOTE | 2024-03-12 20:44 | XRay Report ---
Exam(s): XR CXR 1 VIEW EXAM: XR Chest, 1 View CLINICAL HISTORY: Reason for exam: Sepsis. TECHNIQUE: Frontal view of the chest. COMPARISON: 02/07/24 FINDINGS: Lungs: Unremarkable. No consolidation. Pleural space: Unremarkable. No pleural effusion or pneumothorax. Heart: Unremarkable. No cardiomegaly or pulmonary vascular congestion. Bones/joints: No acute fracture. No dislocation. Soft tissues: Surgical clips project over the left chest, possibly within the left breast. IMPRESSION: No acute findings in the chest. Electronically signed by: Sandra To M.D. 03/12/24 20:43 PM
--- NOTE | 2024-03-12 22:14 | CT Scan Report ---
Exam(s): CT ABDOMEN + PELVIS With Contrast IV Amt: OPTIRAY 320 90ML EXAM: CT Abdomen and Pelvis With Intravenous Contrast CLINICAL HISTORY: Reason for exam: right flank pain, ureteral stent, uti. TECHNIQUE: Axial computed tomography images of the abdomen and pelvis with intravenous contrast. CTDI is 9.31 mGy and DLP is 431.05 mGy-cm. Automated exposure control was utilized for the study. A dose lowering technique was utilized adhering to the principles of ALARA. CONTRAST: Patient received OPTIRAY 320 90ML of IV contrast COMPARISON: 02/07/24 FINDINGS: Lung bases: Unremarkable. ABDOMEN: Liver: Unremarkable. No mass. Gallbladder and bile ducts: Cholecystectomy. Small postoperative collection at the gallbladder fossa is decreased in size from prior. Enlarged common bile duct, similar to prior, potentially reservoir effect. No calcified duct stone identified. Pancreas: Unremarkable. No mass. No ductal dilation. Spleen: Splenomegaly measuring 16 cm, similar to prior. Adrenals: Unremarkable. No mass. Kidneys and ureters: Persistent severe right-sided hydroureteronephrosis with appropriately positioned right ureteral stent. Compared to prior exam, there is mildly increased urothelial thickening in the ureter. No change in nonobstructing bilateral kidney stones. No hydronephrosis of the left kidney. Small left kidney cyst; no follow-up indicated. Stomach and bowel: Postoperative changes of the colon. Anastomotic staple line at the rectum. Partial distal colectomy with oversewn distal colonic stump and left-sided colostomy. No bowel obstruction. PELVIS: Appendix: Normal appendix. Bladder: Unremarkable. No mass. Reproductive: Unremarkable as visualized. ABDOMEN and PELVIS: Intraperitoneal space: Unremarkable. No free air, significant free fluid, or fluid collection. Bones/joints: No acute fracture or dislocation. Osseous demineralization. Soft tissues: Left ventral hernia repair mesh. Vasculature: Unremarkable. No abdominal aortic aneurysm. Lymph nodes: Unremarkable. No enlarged lymph nodes. IMPRESSION: 1. Persistent severe right-sided hydroureteronephrosis with appropriately positioned right ureteral stent. Compared to prior exam, there is mildly increased urothelial thickening in the ureter. This appearance could be due to indwelling stent, but urinary tract infection is not excluded and correlation with urinalysis is recommended. 2. No change in nonobstructing bilateral kidney stones. 3. Cholecystectomy. Small postoperative collection at the gallbladder fossa is decreased in size from prior. Electronically signed by: Sandra To M.D. 03/12/24 22:13 PM
--- NOTE | 2024-03-12 23:26 | History & Physical Report ---
Date of Service March 12, 2024 Assessment & Plan (1) Complicated urinary tract infection: Plan: Pt is a 63 yo female with a past medical hx of SLE and sjogrens on chronic prednisone, hx interstitial lung disease, hx rectal cancer s/p colectomy with colostomy, hx of obstructing ureteral stone in Nov 2023 with stent placed and exchanged post recently 02/08 who was admitted on 03/08-03/11 for complicated UTI and severe R sided hydronephrosis (present previously) who presents back to the hospital today for recurrence of severe R sided flank pain. - admitted 03/08-03/11 for complicated UTI pansensitive enterococcus - UA on admission + for protein, blood, WBCs, nitrites + LE - CT abd showed persistent R hydroureteronephrosis with R ureteral stent with mildly increased thickening and no change in nonobstructing b/l kidney stones - was discharged on levaquin but first dose was on day of admission - given dose of daptomycin, will continue on admission + CTX - blood cx pending - urine cx pending - will consult urology - continue flomax and prn pyridium (2) Ureteral stent present: Plan: Per above (3) Hydroureteronephrosis: Plan: Per above (4) SLE (systemic lupus erythematosus): Plan: - on chronic steroid therapy - continue 2 mg prednisone po daily (5) Sjogrens syndrome: Plan: Per above. (6) Anxiety: Plan: - continue home prn clonazepam (7) Colostomy status: Plan: - routine ostomy care (8) Hypothyroidism: Plan: - continue home levothyroxine Plan VTE ppx: defer chemical ppx pending urology consult, SCDs History of Present Illness Chief Complaint: Flank pain, Primary Care Provider: Caitie Aden DO Pt is a 63 yo female with a past medical hx of SLE and sjogrens on chronic prednisone, hx interstitial lung disease, hx rectal cancer s/p colectomy with c olostomy, hx of obstructing ureteral stone in Nov 2023 with stent placed and exchanged post recently 02/08 who was admitted on 03/08-03/11 for complicated UTI and severe R sided hydronephrosis (present previously) who presents back to the hospital today for recurrence of severe R sided flank pain. She states she was discharged from the hospital yesterday and felt well yesterday and last night. She states that this afternoon around 1pm she started to get severe R sided flank pain again which had resolved prior to discharge. She states today is her first day on oral antibiotics. She states she took an oxycodone and flomax and took a nap until 3 pm when she woke up with continued severe pain if not worsened that prior. No fevers or chills but generally feeling unwell. She has been urinating today but states she has not been eating or drinking much since the pain started. No burning with urination so far today as she had prior to admission earlier this week. Allergies Allergy/AdvReac Type Severity Reaction Status Date / Time moxifloxacin [From Avelox] Allergy Severe Rash Verified 12/03/23 13:07 Penicillins Allergy Severe Hives Verified 12/03/23 13:07 Sulfa (Sulfonamide Allergy Severe Brain/Head Verified 12/03/23 13:07 Antibiotics) pressure cefoxitin Allergy Unknown Unknown Verified 12/03/23 13:07 vancomycin Allergy Unknown Unknown Verified 12/03/23 13:07 acetaminophen [From Tylenol] AdvReac Unknown Fever Verified 12/03/23 13:07 Antihistamines - Alkylamine AdvReac "skin Verified 12/03/23 13:07 crawling" with antihistamines Home Medications Medication Instructions Recorded Confirmed Type calcium 600 mg (as 1 tab PO DAILY 10/26/23 03/12/24 History carbonate)-vitamin D3 10 mcg (400 unit) tablet (Calcium 600 + D(3)) carboxymethylcellulose 1 drp ophthalmic (eye) BID PRN 10/26/23 03/12/24 History sod-hypromell 0.25 %-0.3 % eye Other liquid gel drops carboxymethylcellulose sodium 1 % 1 drp ophthalmic (eye) BID PRN 10/26/23 03/12/24 History eye gel in a dropperette Other (TheraTears) clonazepam 1 mg tablet 1 mg PO TID Anxiety/Insomnia 10/26/23 03/12/24 History docusate sodium 100 mg capsule 200 mg PO DAILY 10/26/23 03/12/24 History (Colace) levothyroxine 25 mcg tablet 25 mcg PO DAILYBB 10/26/23 03/12/24 History naloxone 4 mg/actuation nasal spray 4 mg intranasal UD PRN Other 10/26/23 03/12/24 History omeprazole 20 mg capsule,delayed 20 mg PO QAM 10/26/23 03/12/24 History release oxycodone 5 mg tablet 5 mg PO Q4 PRN Severe Pain (Scale 10/26/23 03/12/24 History Score 7-10) prednisone 1 mg tablet 2 mg PO DAILY 10/26/23 03/12/24 History tamsulosin 0.4 mg capsule 0.4 mg PO DAILY PRN Other 10/26/23 03/12/24 History cyanocobalamin (vitamin B-12) 1,000 mcg PO DAILY #30 caps 11/18/23 03/12/24 Rx 1,000 mcg capsule potassium citrate-citric acid 5 ml PO DAILY 01/23/24 03/12/24 History 1,100 mg-334 mg/5 mL oral solution prednisolone acetate 1 % eye 1 drp ophthalmic (eye) UD PRN Other 01/23/24 03/12/24 History drops,suspension phenazopyridine 100 mg tablet 100 mg PO TID PRN pain 6 doses #6 02/09/24 03/12/24 Rx (Pyridium) tabs levofloxacin 750 mg tablet 750 mg PO QAM 5 days #5 tabs 03/11/24 03/12/24 Rx Past Med/Surg History Problem List (Updated 03/09/24 @ 11:37 by Pipe De Guzman DO) Hx laparoscopic cholecystectomy (01/24/24) Laparoscopic Cholecystectomy(Not Applicable)please add difficulty modifier - Pipe De Guzman DO Right flank pain Ureteral stent present Hydroureteronephrosis (Acute) Intractable abdominal pain (Acute) Complicated urinary tract infection (Acute) Ureteral stent retained (Acute) Hydronephrosis (Acute) Acute right flank pain (Acute) Left-sided chest pain (Acute) Sjogrens syndrome LIP (lymphoid interstitial pneumonitis) ILD (interstitial lung disease) Multiple idiopathic pulmonary cysts Anxiety Chest pain Enterococcal bacteremia Colostomy status SLE (systemic lupus erythematosus) Secondary thrombocytopenia Pancytopenia History of creation of ostomy (Acute) Medical History Acute cholecystitis Sepsis Ureterolithiasis Hydronephrosis Ureteral calculi Renal colic on right side Nephrolithiasis Raynaud's disease Medullary sponge kidney Panic disorder Hypothyroidism Anal cancer Surgical History Hx laparoscopic cholecystectomy (01/24/24) Laparoscopic Cholecystectomy(Not Applicable)please add difficulty modifier - Pipe De Guzman DO H/O breast biopsy H/O dilation and curettage S/P tonsillectomy and adenoidectomy H/O wrist surgery H/O ventral hernia repair H/O colectomy Family History Other Family history non-contributory Social History Smoking Status: Former smoker Tobacco Type: Cigarettes Second Hand Exposure: No; Do You Dip or Chew Tobacco: No; Hx Alcohol Use: No Hx Substance Use: No Preferred Language: Belarusian Communication Ability: Effective Visual Impairment: No Limitations Tempering Machine Operator Required: No Beliefs That Will Affect Care: None Current Living Situation: Spouse Feels Safe at Home: Yes Assistive Devices: None Review of Systems Review of Systems: Per HPI. Physical Exam Physical Exam: General:Alert and oriented, no acute distress but uncomfortable appearing HEENT: Normocephalic, moist oral mucosa, Cardio: Regular rate and rhythm, no murmur, Resp:Lungs clear to auscultation b/l, no wheezes or rhonchi, GI: Soft, nondistended, bowel sounds active, ostomy noted on L side abd draining nonbloody green stool, multiple scars needed Skin: Warm, pink, dry, Results & Data Results & Data Vital Signs (Past 12 Hours) Vital Signs Temp Pulse Resp BP Pulse Ox O2 Del Method 03/12/24 23:15 73 03/12/24 22:30 63 16 95/56 L 96 Room Air 03/12/24 21:30 73 15 109/68 98 Room Air 03/12/24 19:45 77 18 112/67 97 Room Air 03/12/24 19:30 84 19 112/67 100 Room Air 03/12/24 19:13 85 03/12/24 18:25 36.6 C 110 H 18 92/45 L 98 Supervising Physician Co-Signing Physician Notes Patient seen and examined, chart reviewed, case discussed with Dr. Wang and I agree with the assessment and plan as above. Patient is a 63yo female with history of rectal/colon cancer s/p colostomy placement, s/p radiation with radiation cystitis - right renal stricture with ureteral stent in place as well as non-obstructing renal stones. Patient recently admitted to [facility] 03/08 - 03/11 - was treated with Flomax, pain control and antibiotics - discharged home on 5 day course of Levaquin. Patient returns today with worsening rightl flank pain. On exam patient is afebrile, HD stable Skin - no rash HEENT- MMM, Neck supple Heart - +S1/S2, regular Lungs - CTA Abd - colostomy in place with healthy appearing stoma, +right CVA tenderness Ext - warm, well perfused Labs and images reviewed UA does not appear infectious - culture has been asent -CT of the abdomen with worsening of right hydronephrosis. Stent is in place. No obstructing stones Assessment/plan -treatment with Daptomycin and Ceftriaxone -Follow cultures -Pain control, pyridium and Flomax -Urology consultation appreciated -Patient is quite reluctant to have a nephrostomy tube placed, if, perchance that should be recommended at some point -Remainder as above Resident Activity Tracking Resident Involvement: Resident Care Provided Care Provided: Adult Hospital Medicine
[2024-03-12] MEDS: DAPTOmycin 425 MG in SYRINGE 0 ML IV STA (23:33)
[2024-03-13] MEDS: HYDROmorphone INJ 0.5 MG/0.5 ML SYR IV STA ×2 (00:20→03:00)
[2024-03-13] MEDS: PLASMA-LYTE A 1,000 ML IV SCH (01:34)
[2024-03-13] MEDS: cefTRIAXone SODIUM 1,000 MG/50 ML BAG IV STA (01:34)
[2024-03-13] MEDS ORDERED: PHENAZOPYRIDINE HCL 100 MG TAB PO PRN (02:14)
[2024-03-13] MEDS ORDERED: TAMSULOSIN HCL 0.4 MG CAP PO PRN (02:14)
[2024-03-13] MEDS ORDERED: HYDROmorphone INJ 0.5 MG/0.5 ML SYR IV PRN (02:14)
[2024-03-13] MEDS: HYDROmorphone INJ 0.5 MG/0.5 ML SYR IV PRN ×2 (02:42→21:01)
--- NOTE | 2024-03-13 02:53 | Billing Data ---
Date of Service March 12, 2024 Coding Level of Care Code 42329 INT INP/OBS CARE
[2024-03-13] MEDS: LEVOTHYROXINE SODIUM 25 MCG TABLET PO SCH (04:31)
[2024-03-13] MEDS: ACETAMINOPHEN 1,000 MG/100 ML VIAL IV SCH (05:53)
--- OUTSIDE RECORDS SUMMARY | 2024-03-13 06:50 | External Medical Summary | Summary of Care ---
Author Name Unknown Organization [facility] Address [address] [place] [address] Phone [phone] Care Team Providers Care Forge Operator Helper Name Role Phone Caitie Aden Primary Care Provider [phone] Reason for Visit * Reason Onset Date Comments TRIAGE 12/12/2023 Appointment 12/12/2023 Encounter Details Date Type Department Care Team (Late st Contact Info) Description 12/12/2023 Telephone Access Center, [place] [address] [facility] *DO NOT REMOVE THIS DEPARTMENT* [place] [address] Services, Scheduling [address] [place] [address] TRIAGE; Appointment Allergies Active Allergy Reactions Criticality Noted Date [...] as of this encounter (statuses as of 03/12/2024) Medications KLONOPIN 0.5 MG PO TABSIndications:Pa adeline disorder one bid 60 5 03/25/19 [...] 05/20/2023 2:37 PM EDT 05/20/19 24 Active documented as of this encounter (statuses as of 03/12/2024) Active Problems Problem Noted Date Diagnosed Date [...] as of this encounter (statuses as of 03/12/2024) Resolved Problems Problem Noted Date Diagnosed Date Resolved Date Anal fissure 02/08/2019 02/08/2019 ADVANCE DIRECTIVE INFORMATION 03/25/2005 01/05/2024 Overview (03/25/2005): No, Advance Directive brochure given to patient. documented as of this encounter (statuses as of 03/12/2024) Immunizations No known immunizationsdocumented as of this [...] file Not on file Not on file CONTROL CLERK REPAIRS Not on file Not on file Not [...] Date Author No 05/15/2023 6:06 PM EDT Edi, Malick hael M, RN documented in this encounter Miscellaneous Notes * Telephone Encounter - Jessica Henderson LPN - 12/12/2023 12:48 PM EDT Spoke with Angy and patient is scheduled for 12/19/23 at 9:30am * Telephone Encounter - Diane Israel OSA - 12/12/2023 10:55 AM EDT Angy from Dr Jama Ortiz office called for retinal appt: Early retinal hole OD, ERM. would like appt next week. ( Pt requesting an appt FridayDec 14 since will be off from work) To call Angy [phone] with appt documented in this encounter Plan of Treatment Upcoming Encounters Date Type Department Care Team (Late st Contact Info) Description 04/16/2024 10:00 AM EST Telemedicine General Surgery, [address] [id number] Horace Elder MD [address] [place] [address] Health Maintenance Due Date Last [...] 09/01/2007 08/31/2004, 03/2004, 09/07/2003, Additional history exists Pneumococcal Vaccine: 50+ Years (1 of 1 - PCV) 11/25/2011 Zoster Vaccines (1 of 2) 11/25/2011 COVID-19 Vaccine (1 - 2023-25 season) 2023 Influenza Vaccine (FLU shot) (#1) [...] 5 Years) and At-Risk Patients (6 to 18 Years and 19+ Years) Aged Out No longer eligib le based on patient's age to complete this topic documented as of this encounter Medical Devices Implanted Type Area Front End Developer Javascript Html Css Device Identifier Shelf Expiration Date Model / Serial / Lot Patch Tissue [id number] [id number] - [id number] Implanted:Qty : 1 on 05/15/2023 [place] [facility] [place]: Abdomen [employer] [id number] 10/06/2027 [id number] / [id number] / [id number] Mesh Capsure Fixation 30 - [id number] Implanted:Qty : 1 on 05/15/2023 by Horace Elder [place] [facility] [place] CR BARD : DAVOL 05/28/2024 [id number] / / [id number] documented as of this encounter Advance Directives * Full Code [...] Discussed due to patient's condition Care Teams Forge Operator Helper Relationship Specialty Start Date End Date Caitie Aden DO [address] [place] [id number] PCP - General 09/12/09 documented as of this encounter
[2024-03-13 07:19] LABS: Hematocrit (blood only) 31.1 % (37.0-47.0); Hemoglobin 10.3 g/dl (12.0-16.0); Mean Corpuscular Hemoglobin 29.9 pg (25.0-34.0); Mean Corpuscular Hgb Conc 33.1 g/dL (32.0-36.0); Mean Corpuscular Volume 90.4 fL (80.0-100.0); Mean Platelet Volume 10.2 fL (9.4-12.4); Platelet Count 96 K/uL (130-400); RDW Coefficient of Variation 14.6 % (11.5-14.5); RDW Standard Deviation 48.4 fL (36.4-46.3); Red Blood Count 3.44 M/uL (4.20-5.40); White Blood Count 2.46 K/ul (4.8-10.8)
[2024-03-13 07:20] LABS: Basophils # (auto) 0.01 K/uL (0.00-0.20); Basophils % (auto) 0.4 %; Immature Granulocytes # (auto) 0.02 K/uL (0.01-0.20); Immature Granulocytes % (auto) 0.8 %; Lymphocytes # (auto) 0.43 K/uL (1.20-3.40); Lymphocytes % (auto) 17.5 %; Monocytes # (auto) 0.24 K/uL (0.11-0.59); Monocytes % (auto) 9.8 %; Neutrophils # (auto) 1.76 K/uL (1.40-6.50); Neutrophils % (auto) 71.5 %
[2024-03-13 07:57] LABS: Albumin Globulin Ratio 1.1 (0.9-2); Albumin Level 3.2 gm/dl (3.4-5.0); BUN Creatinine Ratio 18.7 (10-20); Bilirubin,Total 0.5 mg/dl (0.2-1.0); Calcium 8.2 mg/dl (8.6-10.3); Creatinine Clr Calc Pharmacy 76.1 ml/min; Globulin 2.9 gm/dl (2.5-4.0); Potassium 3.5 mmol/L (3.5-5.1); Total Protein 6.1 gm/dl (6.0-8.3)
--- NOTE | 2024-03-13 08:18 | Urology Consultation ---
Date of Consultation March 13, 2024 Assessment & Plan (1) Right flank pain: (2) Ureteral stent present: (3) Hydroureteronephrosis: Plan 63-year-old female with a history of nephrolithiasis and possible right ureteral stricture currently managed with ureteral stents that have failed and required replacement. She presented to the hospital with worsening right flank pain. I had a long discussion with her and her regarding what I think is another stent failure. Given that she has failed 2 stents, I recommended transfer for a right nephrostomy tube as I do not think putting in a third stent is an appropriate decision. Understandably, she has wanted to avoid a nephrostomy tube. I have low suspicion of a true infection as her urinalysis is always going to look positive with a stent in place. Cultures are pending but she does not have any other signs of infection and has been on antibiotics for several days without improvement of pain so I do not think this is infectious related All of her labs are stable so there is no urgency to nephrostomy tube p lacement, however I do not think her pain is not going to improve and therefore recommended we do this sooner versus later This plan was communicated with the patient, her and the medicine t [facility]. Unfortunately, I have nothing further to offer her urologically at [facility] to follow peripherally History of Present Illness Attending Physician: Maria Esther Stewart, History of Present Illness 63-year-old female with a history of nephrolithiasis and possible right ureteral stricture. She follows with Dr. Bonilla. I initially saw her as a consult in 12/03/2023 with right hydronephrosis and concern for infection so I placed a stent. She then unfortunately came back to the hospital on 02/08/2024 with worsening right hydronephrosis. I again exchanged the stent on 02/09/2024. She missed her appointment with Dr. Bonilla earlier this week due to right sided flank pain. She came in the hospital on 03/12/2024. Labs showed a white count of 3.6, creatinine of 0.82 and a urinalysis that was nitrite positive, leukocyte esterase positive with leukocyte and red blood cells but no bacteria. Cultures are pending. Labs have been stable. She has been afebrile. Pain has not improved. Independent review of her CT scan shows the stent in appropriate position and right hydronephrosis that looks comparable to her most previous CT scan. Allergies Allergy/AdvReac Type Severity Reaction Status Date / Time moxifloxacin [From Avelox] Allergy Severe Rash Verified 12/03/23 13:07 Penicillins Allergy Severe Hives Verified 12/03/23 13:07 Sulfa (Sulfonamide Allergy Severe Brain/Head Verified 12/03/23 13:07 Antibiotics) pressure cefoxitin Allergy Unknown Unknown Verified 12/03/23 13:07 vancomycin Allergy Unknown Unknown Verified 12/03/23 13:07 acetaminophen [From Tylenol] AdvReac Unknown Fever Verified 12/03/23 13:07 Antihistamines - Alkylamine AdvReac "skin Verified 12/03/23 13:07 crawling" with antihistamines Home Medications Medication Instructions Recorded Confirmed Type calcium 600 mg (as 1 tab PO DAILY 10/26/23 03/12/24 History carbonate)-vitamin D3 10 mcg (400 unit) tablet (Calcium 600 + D(3)) carboxymethylcellulose 1 drp ophthalmic (eye) BID PRN 10/26/23 03/12/24 History sod-hypromell 0.25 %-0.3 % eye Other liquid gel drops carboxymethylcellulose sodium 1 % 1 drp ophthalmic (eye) BID PRN 10/26/23 03/12/24 History eye gel in a dropperette Other (TheraTears) clonazepam 1 mg tablet 1 mg PO TID Anxiety/Insomnia 10/26/23 03/12/24 History docusate sodium 100 mg capsule 200 mg PO DAILY 10/26/23 03/12/24 History (Colace) levothyroxine 25 mcg tablet 25 mcg PO DAILYBB 10/26/23 03/12/24 History naloxone 4 mg/actuation nasal spray 4 mg intranasal UD PRN Other 10/26/23 03/12/24 History omeprazole 20 mg capsule,delayed 20 mg PO QAM 10/26/23 03/12/24 History release oxycodone 5 mg tablet 5 mg PO Q4 PRN Severe Pain (Scale 10/26/23 03/12/24 History Score 7-10) prednisone 1 mg tablet 2 mg PO DAILY 10/26/23 03/12/24 History tamsulosin 0.4 mg capsule 0.4 mg PO DAILY PRN Other 10/26/23 03/12/24 History cyanocobalamin (vitamin B-12) 1,000 mcg PO DAILY #30 caps 11/18/23 03/12/24 Rx 1,000 mcg capsule potassium citrate-citric acid 5 ml PO DAILY 01/23/24 03/12/24 History 1,100 mg-334 mg/5 mL oral solution prednisolone acetate 1 % eye 1 drp ophthalmic (eye) UD PRN Other 01/23/24 03/12/24 History drops,suspension phenazopyridine 100 mg tablet 100 mg PO TID PRN pain 6 doses #6 02/09/24 03/12/24 Rx (Pyridium) tabs levofloxacin 750 mg tablet 750 mg PO QAM 5 days #5 tabs 03/11/24 03/12/24 Rx Patient History Medical History Acute cholecystitis Sepsis Ureterolithiasis Hydronephrosis Ureteral calculi Renal colic on right side Nephrolithiasis Raynaud's disease Medullary sponge kidney Panic disorder Hypothyroidism Anal cancer Surgical History Hx laparoscopic cholecystectomy (01/24/24) Laparoscopic Cholecystectomy(Not Applicable)please add difficulty modifier - Pipe De Guzman DO H/O breast biopsy H/O dilation and curettage S/P tonsillectomy and adenoidectomy H/O wrist surgery H/O ventral hernia repair H/O colectomy Family History Other Family history non-contributory Social History Smoking Status: Never smoker Tobacco Type: Cigarettes Second Hand Exposure: No; Do You Dip or Chew Tobacco: No; Hx Alcohol Use: No Hx Substance Use: No Preferred Language: Anguillan Communication Ability: Effective Visual Impairment: No Limitations Boot Turner Required: No Beliefs That Will Affect Care: None Current Living Situation: Spouse Current Living Situation Comment: With Feels Safe at Home: Yes Assistive Devices: Denture - Upper, Denture - Lower and Glasses Physical Exam Physical Exam: General: Alert and oriented, no acute distress HEENT: Normocephalic, mucous membranes moist Pulmonary: Nonlabored respirations Abdomen: Nondistended Extremities: Moves all 4 spontaneously Neuro: No gross deficits Skin: Warm, dry, no rashes noted Results & Data Vital Signs (Past 12 Hours) Vital Signs Temp Pulse Pulse Resp BP BP Pulse Ox 03/13/24 07:51 80 03/13/24 07:26 36.5 C 78 16 112/72 92 03/13/24 04:00 36.5 C 74 18 103/62 97 03/13/24 02:25 36.3 C L 89 20 122/70 94 03/13/24 02:24 78 03/13/24 01:43 69 17 99/62 L 97 03/13/24 00:00 71 18 118/61 98 03/12/24 23:15 73 03/12/24 22:30 63 16 95/56 L 96 03/12/24 21:30 73 15 109/68 98 O2 Del Method 03/13/24 07:51 03/13/24 07:26 Room Air 03/13/24 04:00 Room Air 03/13/24 02:25 Room Air 03/13/24 02:24 03/13/24 01:43 Room Air 03/13/24 00:00 Room Air 03/12/24 23:15 03/12/24 22:30 Room Air 03/12/24 21:30 Room Air PG Care Time/CCT Total # of Minutes Spent Total Time Spent with Patient: Total time spent is greater than 50% in coordination of care (as documented) at patient's floor/unit and/or counseling patient: Coding Level of Care Code 02509 IN/OBS CONSULT LVL 4,60M Diagnoses Right flank pain R10.9 Ureteral stent present Z96.0 Hydroureteronephrosis N13.30
[2024-03-13] MEDS: PANTOprazole 40 MG TAB PO SCH (08:36)
[2024-03-13] MEDS: predniSONE 1 MG TAB PO SCH (08:36)
[2024-03-13] MEDS: clonazePAM 1 MG TAB PO SCH (08:39)
[2024-03-13] MEDS: DOCUSATE SODIUM 100 MG CAP PO SCH (08:39)
[2024-03-13] MEDS: HYDROmorphone INJ 1 MG/ML SYRINGE IV PRN (12:06)
[2024-03-13] MEDS: ONDANSETRON INJ 2 MG/ML 2 ML VIAL IV PRN (12:16)
[2024-03-13] MEDS: ACETAMINOPHEN 500 MG TAB PO SCH (14:01)
--- NOTE | 2024-03-13 15:15 | Hospitalist Progress Note ---
Date of Service March 13, 2024 Assessment & Plan (1) Complicated urinary tract infection: Plan: Pt is a 63 yo female with a past medical hx of SLE and sjogrens on chronic prednisone, hx interstitial lung disease, hx rectal cancer s/p colectomy with colostomy, hx of obstructing ureteral stone in Nov 2023 with stent placed and exchanged post recently 02/08 who was admitted on 03/08-03/11 for complicated UTI and severe R sided hydronephrosis (present previously) who presents back to the hospital today for recurrence of severe R sided flank pain. - admitted 03/08-03/11 for complicated UTI pansensitive enterococcus - UA on admission + for protein, blood, WBCs, nitrites + LE - CT abd showed persistent R hydroureteronephrosis with R ureteral stent with mildly increased thickening and no change in nonobstructing b/l kidney stones - was discharged on levaquin but first dose was on day of admission - discontinue daptomycin - continue CTX pending culture results - blood cx pending - urine cx pending - Per urology: patient failed stenting x2, recommend R nephrostomy placement - no further acute management - [facility] contacted, initially accepted but IR at that institution wants a nuclear medicine renal function study prior to transfer. If no intrinsic/ph ysiologic renal damage would recommend against nephrostomy placement. Pending results of scan and follow up conversation with [facility] if patient not accepted, may have to discuss with [place]. - continue flomax and prn pyridium (2) Ureteral stent present: Plan: Per above (3) Hydroureteronephrosis: Plan: Per above (4) SLE (systemic lupus erythematosus): Plan: - on chronic steroid therapy - continue 2 mg prednisone po daily (5) Sjogrens syndrome: Plan: Per above. (6) Anxiety: Plan: - continue home prn clonazepam (7) Colostomy status: Plan: - routine ostomy care (8) Hypothyroidism: Plan: - continue home levothyroxine Plan VTE ppx: Lovenox Admission and Anticipated Discharge Date Admission Date: March 13, 2024 Supervising Physician Co-Signing Physician Notes I personally examined the patient and verified brown points of history and exam, discussed case, and agree with decision making and plan documented by Dr. Davies. Managing pain control. Awaiting transfer to [facility] percutaneous nephrostomy tube. Subjective Patient seen and evaluated at bedside this morning. No acute events overnight. Patient reports pain despite Dilaudid and Tylenol. VSS, afebrile. Labs demonstrate stable leukopenia, mild anemia, chemistries unremarkable. Urine with suggestion of infection but no bacteria seen. UCx and BCx pending. Review of Systems Review of Systems: Per HPI. Results & Data Results & Data Vital Signs (Past 12 Hours) Vital Signs Temp Pulse Pulse Resp BP Pulse Ox O2 Del Method 03/13/24 15:04 36.5 C 80 17 104/67 96 Room Air 03/13/24 13:44 84 03/13/24 11:49 36.5 C 95 H 16 112/81 97 Room Air 03/13/24 07:51 80 03/13/24 07:26 36.5 C 78 16 112/72 92 Room Air 03/13/24 04:00 36.5 C 74 18 103/62 97 Room Air Resident Activity Tracking Resident Involvement: Resident Care Provided Care Provided: Adult Hospital Medicine
[2024-03-13] MEDS: cefTRIAXone SODIUM 1,000 MG/50 ML BAG IV SCH (21:45)
[2024-03-13] MEDS ORDERED: DAPTOmycin 425 MG in SYRINGE 0 ML IV SCH (22:00)
[2024-03-13] MEDS ORDERED: cefTRIAXone SODIUM 1,000 MG/50 ML BAG IV SCH (23:55)
[2024-03-14 06:09] LABS: Basophils # (auto) 0.02 K/uL (0.00-0.20); Hematocrit (blood only) 31.2 % (37.0-47.0); Hemoglobin 10.3 g/dl (12.0-16.0); Immature Granulocytes # (auto) 0.01 K/uL (0.01-0.20); Immature Granulocytes % (auto) 0.5 %; Lymphocytes # (auto) 0.41 K/uL (1.20-3.40); Lymphocytes % (auto) 20.9 %; Mean Platelet Volume 9.8 fL (9.4-12.4); Monocytes # (auto) 0.23 K/uL (0.11-0.59); Monocytes % (auto) 11.7 %; Neutrophils # (auto) 1.29 K/uL (1.40-6.50); Neutrophils % (auto) 65.9 %; Platelet Count 93 K/uL (130-400); RDW Coefficient of Variation 14.6 % (11.5-14.5); RDW Standard Deviation 48.4 fL (36.4-46.3); Red Blood Count 3.43 M/uL (4.20-5.40); White Blood Count 1.96 K/ul (4.8-10.8)
[2024-03-14 06:30] LABS: Albumin Globulin Ratio 1.1 (0.9-2); Albumin Level 3.3 gm/dl (3.4-5.0); BUN Creatinine Ratio 11.8 (10-20); Bilirubin,Total 0.5 mg/dl (0.2-1.0); Calcium 8.5 mg/dl (8.6-10.3); Creatinine Clr Calc Pharmacy 67.2 ml/min; Globulin 2.9 gm/dl (2.5-4.0); Potassium 3.9 mmol/L (3.5-5.1); Total Protein 6.2 gm/dl (6.0-8.3)
--- NOTE | 2024-03-14 15:17 | Hospitalist Progress Note ---
Date of Service March 14, 2024 Assessment & Plan (1) Complicated urinary tract infection: Plan: Pt is a 63 yo female with a past medical hx of SLE and sjogrens on chronic prednisone, hx interstitial lung disease, hx rectal cancer s/p colectomy with colostomy, hx of obstructing ureteral stone in Nov 2023 with stent placed and exchanged post recently 02/08 who was admitted on 03/08-03/11 for complicated UTI and severe R sided hydronephrosis (present previously) who presents back to the hospital today for recurrence of severe R sided flank pain. - admitted 03/08-03/11 for complicated UTI pansensitive enterococcus - UA on admission + for protein, blood, WBCs, nitrites + LE - CT abd showed persistent R hydroureteronephrosis with R ureteral stent with mildly increased thickening and no change in nonobstructing b/l kidney stones - was discharged on levaquin but first dose was on day of admission - discontinue daptomycin - continue CTX pending culture results - blood cx no growth 24hrs - urine cx prelim positive for alondra tropicalis - will start on Diflucan and repeat culture - Per urology: patient failed stenting x2, recommend R nephrostomy placement - no further acute management - [facility] contacted, initially accepted but IR at that institution wants a nuclear medicine renal function study this will have to be discussed/arranged with nuc med 03/15/24 prior to transfer. If no intrinsic/physiologic renal damage would recommend against nephrostomy placement. Pending results of scan and follow up conversation with [facility] if patient not accepted, may have to discuss with Arti. - continue flomax and prn pyridium (2) Ureteral stent present: Plan: Per above (3) Hydroureteronephrosis: Plan: Per above (4) SLE (systemic lupus erythematosus): Plan: - on chronic steroid therapy - continue 2 mg prednisone po daily (5) Sjogrens syndrome: Plan: Per above. (6) Anxiety: Plan: - continue home prn clonazepam (7) Colostomy status: Plan: - routine ostomy care (8) Hypothyroidism: Plan: - continue home levothyroxine Plan VTE ppx: Lovenox Admission and Anticipated Discharge Date Admission Date: March 13, 2024 Supervising Physician Co-Signing Physician Notes I personally examined the patient and verified brown points of history and exam, discussed case, and agree with decision making and plan documented by Dr. Ruby burnett. Pain controlled. Will need NM scan prior to transfer to [facility] percutaneous nephrostomy tube. Subjective Patient seen and evaluated at bedside this morning. No acute events overnight. Overall, her pain is well controlled with current regimen. She does complain of a rash around her eyes and on her chin. This is improving from yesterday with use of moisturizing cream, she feels it is related to the dry air. Review of Systems Review of Systems: reviewed, per HPI Physical Exam Physical Exam: Constitutional: well-appearing, no acute distress HEENT: NCAT, no conjunctival injection CV: regular rhythm, no murmur appreciated, extremities well-perfused, no LE edema Resp: CTABL, no wheezes/rales/rhonchi appreciated, no increased work of breathin g GI: nondistended MSK: no gross deformities appreciated Skin: warm, dry, no rash appreciated Neuro: alert, oriented, no focal neurologic deficit appreciated Results & Data Results & Data Vital Signs (Past 12 Hours) Vital Signs Temp Pulse Pulse Resp BP Pulse Ox O2 Del Method 03/14/24 14:51 78 03/14/24 14:35 36.5 C 75 14 97/55 L 97 Room Air 03/14/24 10:46 36.6 C 71 14 93/59 L 98 Room Air 03/14/24 07:19 36.8 C 74 16 91/58 L 97 Room Air 03/14/24 07:14 74 03/14/24 04:00 36.7 C 72 18 102/55 L 96 Room Air Resident Activity Tracking Resident Involvement: Resident Care Provided Care Provided: Adult Hospital Medicine
[2024-03-14] MEDS: FLUCONAZOLE 100 MG TAB PO SCH (16:07)
[2024-03-14 20:22] VITALS: RESP 18
--- NOTE | 2024-03-14 21:57 | Electrocardiogram Report ---
Test Reason : Blood Pressure : */* mmHG Vent. Rate : 102 BPM Atrial Rate : 102 BPM P-R Int : 160 ms QRS Dur : 82 ms QT Int : 336 ms P-R-T Axes : 76 -69 71 degrees QTcB Int : 437 ms Sinus tachycardia Possible Left atrial enlargement Left axis deviation Inferior infarct , age undetermined Anterior infarct , age undetermined Abnormal ECG When compared with ECG of 08-Mar-2024 12:50, Anterior infarct is now Present Confirmed by Darinel Franco ([id number]) on 03/14/2024 9:57:02 PM Referred By: REFERRED SELF Confirmed By: Darinel Franco
[2024-03-15 04:35] VITALS: TEMP 97.9
[2024-03-15 07:12] LABS: Basophils # (auto) 0.01 K/uL (0.00-0.20); Basophils % (auto) 0.4 %; Hematocrit (blood only) 31.6 % (37.0-47.0); Hemoglobin 10.5 g/dl (12.0-16.0); Immature Granulocytes # (auto) 0.02 K/uL (0.01-0.20); Immature Granulocytes % (auto) 0.8 %; Lymphocytes % (auto) 15.8 %; Mean Corpuscular Hemoglobin 29.7 pg (25.0-34.0); Mean Corpuscular Hgb Conc 33.2 g/dL (32.0-36.0); Mean Corpuscular Volume 89.3 fL (80.0-100.0); Monocytes # (auto) 0.26 K/uL (0.11-0.59); Monocytes % (auto) 10.3 %; Neutrophils # (auto) 1.84 K/uL (1.40-6.50); Neutrophils % (auto) 72.7 %; Platelet Count 102 K/uL (130-400); RDW Coefficient of Variation 14.5 % (11.5-14.5); RDW Standard Deviation 46.9 fL (36.4-46.3); Red Blood Count 3.54 M/uL (4.20-5.40); White Blood Count 2.53 K/ul (4.8-10.8)
--- NOTE | 2024-03-15 07:14 | Hospitalist Progress Note ---
Date of Service March 15, 2024 Assessment & Plan (1) Complicated urinary tract infection: Plan: Pt is a 63 yo female with a past medical hx of SLE and sjogrens on chronic prednisone, hx interstitial lung disease, hx rectal cancer s/p colectomy with colostomy, hx of obstructing ureteral stone in Nov 2023 with stent placed and exchanged most recently 02/08 who was admitted on 03/08-03/11 for complicated UTI and severe R sided hydronephrosis (present previously) who presented back to the hospital for recurrence of severe R sided flank pain: - admitted 03/08-03/11 for complicated UTI, initial UCx + E. Faecalis - UA on admission + for protein, blood, WBCs, nitrites + LE - CT abd showed persistent R hydroureteronephrosis with R ureteral stent with mildly increased thickening and no change in nonobstructing b/l kidney stones - In total, received 3 days of Daptomycin + 1 day of Levofloxacin - recommend treating with 3 more days of Daptomycin upon transfer - blood cx no growth 48hrs - Repeat urine cx positive for alondar tropicalis - Continue Diflucan 400mg daily giving upcoming urologic procedure - Urology consulted: patient failed stenting x2, recommend R nephrostomy placement - no further acute management - [place] renal scan unable to be completed prior to transfer, consider obtaining upon transfer to [facility] - continue flomax and prn pyridium (2) Ureteral stent present: Plan: Per above (3) Hydroureteronephrosis: Plan: Per above (4) SLE (systemic lupus erythematosus): Plan: - on chronic steroid therapy - continue 2 mg prednisone po daily (5) Sjogrens syndrome: Plan: Per above. (6) Anxiety: Plan: - continue home prn clonazepam (7) Colostomy status: Plan: - routine ostomy care (8) Hypothyroidism: Plan: - continue home levothyroxine Plan Pt is a 63 yo female with a past medical hx of SLE and sjogrens on chronic prednisone, hx interstitial lung disease, hx rectal cancer s/p colectomy with colostomy, hx of obstructing ureteral stone in Nov 2023 with stent placed and exchanged most recently 02/08 who was admitted on 03/08-03/11 for complicated UTI and severe R sided hydronephrosis (present previously) who presented back to the hospital for recurrence of severe R sided flank pain: Complicated UTI, R. Hydroureteronephrosis, Ureteral stent in place: - admitted 03/08-03/11 for complicated UTI, initial UCx + E. Faecalis - UA on admission + for protein, blood, WBCs, nitrites + LE - CT abd showed persistent R hydroureteronephrosis with R ureteral stent with mildly increased thickening and no change in nonobstructing b/l kidney stones - In total, received 3 days of Daptomycin + 1 day of Levofloxacin - recommend treating with 3 more days of Daptomycin upon transfer - blood cx no growth 48hrs - Repeat urine cx positive for alondra tropicalis - Continue Diflucan 400mg daily giving upcoming urologic procedure - Urology consulted: patient failed stenting x2, recommend R nephrostomy placement - no further acute management - [place] renal scan unable to be completed prior to transfer, consider obtaining upon transfer to [facility] - continue flomax and prn pyridium Chronic Conditions: SLE (systemic lupus erythematosus): - on chronic steroid therapy - continue 2 mg prednisone po daily Sjogrens syndrome: Per above. Anxiety: - continue home prn clonazepam Colostomy status: - routine ostomy care Hypothyroidism: - continue home levothyroxine Admission and Anticipated Discharge Date Admission Date: March 13, 2024 Subjective Patient seen at bedside, reports ongoing right flank pain, largely unchanged - overall, responsive to Dilaudid. Denies urinary sx, denies fevers/chills. Denies N/V. Review of Systems Review of Systems: as per HPI Physical Exam Physical Exam: Constitutional: no acute distress HEENT: NCAT, no conjunctival injection CV: extremities well-perfused, no LE edema Resp: no increased work of breathing GI: nondistended MSK: no gross deformities Skin: warm, dry, no rash appreciated Neuro: alert, oriented, no focal neurologic deficit appreciated Results & Data Results & Data Vital Signs (Past 12 Hours) Vital Signs Temp Pulse Pulse Resp BP Pulse Ox O2 Del Method 03/15/24 04:00 36.6 C 74 18 123/73 97 Room Air 03/14/24 23:00 36.5 C 67 18 120/75 98 Room Air 03/14/24 21:57 67 03/14/24 20:00 36.8 C 70 18 107/60 99 Room Air
[2024-03-15 11:34] VITALS: O2SAT 97
[2024-03-15 15:58] VITALS: BP 102/58; PULSE 64
--- NOTE | 2024-03-15 18:10 | Discharge Summary ---
Date of Service March 15, 2024 Admission HPI Per Admitting Provider Pt is a 63 yo female with a past medical hx of SLE and sjogrens on chronic prednisone, hx interstitial lung disease, hx rectal cancer s/p colectomy with colostomy, hx of obstructing ureteral stone in Nov 2023 with stent placed and exchanged post recently 02/08 who was admitted on 03/08-03/11 for complicated UTI and severe R sided hydronephrosis (present previously) who presents back to the hospital today for recurrence of severe R sided flank pain. She states she was discharged from the hospital yesterday and felt well yesterday and last night. She states that this afternoon around 1pm she started to get severe R sided flank pain again which had resolved prior to discharge. She states today is her first day on oral antibiotics. She states she took an oxycodone and flomax and took a nap until 3 pm when she woke up with continued severe pain if not worsened that prior. No fevers or chills but generally feeling unwell. She has been urinating today but states she has not been eating or drinking much since the pain started. No burning with urination so far today as she had prior to admission earlier this week. Admission Exam Per Admitting Provider General:Alert and oriented, no acute distress but uncomfortable appearing HEENT: Normocephalic, moist oral mucosa, Cardio: Regular rate and rhythm, no murmur, Resp:Lungs clear to auscultation b/l, no wheezes or rhonchi, GI: Soft, nondistended, bowel sounds active, ostomy noted on L side abd draining nonbloody green stool, multiple scars needed Skin: Warm, pink, dry, Principal Diagnosis R. Hydronephrosis, R. Flank pain Discharge Exam Constitutional: no acute distress HEENT: NCAT, no conjunctival injection CV: extremities well-perfused, no LE edema Resp: no increased work of breathing GI: nondistended MSK: no gross deformities Skin: warm, dry, no rash appreciated Neuro: alert, oriented, no focal neurologic deficit appreciated Discharge Data Allergies Allergy/AdvReac Type Severity Reaction Status Date / Time moxifloxacin [From Avelox] Allergy Severe Rash Verified 12/03/23 13:07 Penicillins Allergy Severe Hives Verified 12/03/23 13:07 Sulfa (Sulfonamide Allergy Severe Brain/Head Verified 12/03/23 13:07 Antibiotics) pressure cefoxitin Allergy Unknown Unknown Verified 12/03/23 13:07 vancomycin Allergy Unknown Unknown Verified 12/03/23 13:07 acetaminophen [From Tylenol] AdvReac Unknown Fever Verified 12/03/23 13:07 Antihistamines - Alkylamine AdvReac "skin Verified 12/03/23 13:07 crawling" with antihistamines Consultations 03/12/24 22:59 ED Decision to Admit Stat 03/13/24 02:14 Consult Urology Routine Ordered Studies 03/12/24 19:58 CT abd pelvis IV con only Stat Chest X-Ray 03/12/24 18:37 Exam(s): XR CXR 1 VIEW EXAM: XR Chest, 1 View CLINICAL HISTORY: Reason for exam: Sepsis. TECHNIQUE: Frontal view of the chest. COMPARISON: 02/07/24 FINDINGS: Lungs: Unremarkable. No consolidation. Pleural space: Unremarkable. No pleural effusion or pneumothorax. Heart: Unremarkable. No cardiomegaly or pulmonary vascular congestion. Bones/joints: No acute fracture. No dislocation. Soft tissues: Surgical clips project over the left chest, possibly within the left breast. IMPRESSION: No acute findings in the chest. Electronically signed by: Sandra To M.D. 03/12/24 20:43 PM Abdomen/Pelvis CT 03/12/24 19:58 Exam(s): CT ABDOMEN + PELVIS With Contrast IV Amt: OPTIRAY 320 90ML EXAM: CT Abdomen and Pelvis With Intravenous Contrast CLINICAL HISTORY: Reason for exam: right flank pain, ureteral stent, uti. TECHNIQUE: Axial computed tomography images of the abdomen and pelvis with intravenous contrast. CTDI is 9.31 mGy and DLP is 431.05 mGy-cm. Automated exposure control was utilized for the study. A dose lowering technique was utilized adhering to the principles of ALARA. CONTRAST: Patient received OPTIRAY 320 90ML of IV contrast COMPARISON: 02/07/24 FINDINGS: Lung bases: Unremarkable. ABDOMEN: Liver: Unremarkable. No mass. Gallbladder and bile ducts: Cholecystectomy. Small postoperative collection at the gallbladder fossa is decreased in size from prior. Enlarged common bile duct, similar to prior, potentially reservoir effect. No calcified duct stone identified. Pancreas: Unremarkable. No mass. No ductal dilation. Spleen: Splenomegaly measuring 16 cm, similar to prior. Adrenals: Unremarkable. No mass. Kidneys and ureters: Persistent severe right-sided hydroureteronephrosis with appropriately positioned right ureteral stent. Compared to prior exam, there is mildly increased urothelial thickening in the ureter. No change in nonobstructing bilateral kidney stones. No hydronephrosis of the left kidney. Small left kidney cyst; no follow-up indicated. Stomach and bowel: Postoperative changes of the colon. Anastomotic staple line at the rectum. Partial distal colectomy with oversewn distal colonic stump and left-sided colostomy. No bowel obstruction. PELVIS: Appendix: Normal appendix. Bladder: Unremarkable. No mass. Reproductive: Unremarkable as visualized. ABDOMEN and PELVIS: Intraperitoneal space: Unremarkable. No free air, significant free fluid, or fluid collection. Bones/joints: No acute fracture or dislocation. Osseous demineralization. Soft tissues: Left ventral hernia repair mesh. Vasculature: Unremarkable. No abdominal aortic aneurysm. Lymph nodes: Unremarkable. No enlarged lymph nodes. IMPRESSION: 1. Persistent severe right-sided hydroureteronephrosis with appropriately positioned right ureteral stent. Compared to prior exam, there is mildly increased urothelial thickening in the ureter. This appearance could be due to indwelling stent, but urinary tract infection is not excluded and correlation with urinalysis is recommended. 2. No change in nonobstructing bilateral kidney stones. 3. Cholecystectomy. Small postoperative collection at the gallbladder fossa is decreased in size from prior. Electronically signed by: Sandra To M.D. 03/12/24 22:13 PM Hospital Course (1) Complicated urinary tract infection: (2) Ureteral stent present: (3) Hydroureteronephrosis: (4) SLE (systemic lupus erythematosus): (5) Sjogrens syndrome: (6) Anxiety: (7) Colostomy status: (8) Hypothyroidism: Plan Pt is a 63 yo female with a past medical hx of SLE and sjogrens on chronic prednisone, hx interstitial lung disease, hx rectal cancer s/p colectomy with colostomy, hx of obstructing ureteral stone in Nov 2023 with stent placed and exchanged most recently 02/08 who was admitted on 03/08-03/11 for complicated UTI and severe R sided hydronephrosis (present previously) who presented back to the hospital for recurrence of severe R sided flank pain: Complicated UTI, R. Hydroureteronephrosis, Ureteral stent in place: - admitted 03/08-03/11 for complicated UTI, initial UCx + E. Faecalis - UA on admission + for protein, blood, WBCs, nitrites + LE - CT abd showed persistent R hydroureteronephrosis with R ureteral stent with mildly increased thickening and no change in nonobstructing b/l kidney stones - In total, received 3 days of Daptomycin + 1 day of Levofloxacin - recommend treating with 3 more days of Daptomycin upon transfer - blood cx no growth 48hrs - Repeat urine cx positive for alondra tropicalis - Continue Diflucan 400mg daily giving upcoming urologic procedure - Urology consulted: patient failed stenting x2, recommend R nephrostomy placement - no further acute management - [place] renal scan unable to be completed prior to transfer, consider obtaining upon transfer to [facility] - continue flomax and prn pyridium - IV Dilaudid for pain control Chronic Conditions: SLE (systemic lupus erythematosus): - on chronic steroid therapy - continue 2 mg prednisone po daily Sjogrens syndrome: Per above. Anxiety: - continue home prn clonazepam Colostomy status: - routine ostomy care Hypothyroidism: - continue home levothyroxine Total Time Total Time Spent Total Time Spent (In Minutes): <30 Discharge Plan Discharge Items Patient Disposition: Transfer Acute Care Hospital Reason For Visit: COMPLICATED UTI Discharge Diagnosis: R. Hydronephrosis, ureteral stricture Activity: Resume your previous activity Non-emergency contact: Primary Care Provider and Urologist Call non-emergency contact if: you have any medication questions, your symptoms worsen and your pain is not controlled Follow-up/Referrals: Caitie Aden DO [Primary Care Provider] - Diet: Regular Addtl Attending Provider Instructions: Pt is a 63 yo female with a past medical hx of SLE and sjogrens on chronic prednisone, hx interstitial lung disease, hx rectal cancer s/p colectomy with colostomy, hx of obstructing ureteral stone in Nov 2023 with stent placed and exchanged most recently 02/08 who was admitted on 03/08-03/11 for complicated UTI and severe R sided hydronephrosis (present previously) who presented back to the hospital for recurrence of severe R sided flank pain: Complicated UTI, R. Hydroureteronephrosis, Ureteral stent in place: - admitted 03/08-03/11 for complicated UTI, initial UCx + E. Faecalis - UA on admission + for protein, blood, WBCs, nitrites + LE - CT abd showed persistent R hydroureteronephrosis with R ureteral stent with mildly increased thickening and no change in nonobstructing b/l kidney stones - In total, received 3 days of Daptomycin + 1 day of Levofloxacin - recommend treating with 3 more days of Daptomycin upon transfer - blood cx no growth 48hrs - Repeat urine cx positive for alondra tropicalis - Continue Diflucan 400mg daily giving upcoming urologic procedure - Urology consulted: patient failed stenting x2, recommend R nephrostomy placement - no further acute management - [place] renal scan unable to be completed prior to transfer, consider obtaining upon transfer to [facility] - continue flomax and prn pyridium - IV Dilaudid for pain control Chronic Conditions: SLE (systemic lupus erythematosus): - on chronic steroid therapy - continue 2 mg prednisone po daily Sjogrens syndrome: Per above. Anxiety: - continue home prn clonazepam Colostomy status: - routine ostomy care Hypothyroidism: - continue home levothyroxine Pending Studies at Discharge: No Stand-Alone Forms: My [facility] Skilled Items Patient informed of condition?: Yes DNR: No Discharge Level of Care: Other Communicable Disease: No Discharge Prognosis: Stable Lines: Peripheral IV Urinary Catheter: No Medications and DC Order Prescriptions: New fluconazole [Diflucan] 100 mg Tablet 400 mg PO QAM 5 Days Qty: 20 0RF Continued clonazepam 1 mg tablet 1 mg PO TID levothyroxine 25 mcg tablet 25 mcg PO DAILYBB tamsulosin 0.4 mg capsule 0.4 mg PO DAILY PRN (Reason: Other) Hold Instructions: Resume on 03/25/24. prednisone 1 mg tablet 2 mg PO DAILY Hold Instructions: Resume on 01/28/24. docusate sodium [Colace] 100 mg Capsule 200 mg PO DAILY omeprazole 20 mg capsule,delayed release(DR/EC) 20 mg PO QAM oxycodone 5 mg tablet 5 mg PO Q4 PRN (Reason: Severe Pain (Scale Score 7-10)) Rx Instructions: usually takes at night as needed. Q 4-6 hours calcium carbonate-vitamin D3 [Calcium 600 + D(3)] 600 mg-10 mcg (400 unit) Tablet 1 tab PO DAILY naloxone 4 mg/actuation spray,non-aerosol 4 mg INTRANASAL UD PRN (Reason: Other) Rx Instructions: [place] 1 spray into one nostril as directed for overdose, respiratory supression/slow infrequent breathing. Repeat in 3 minutes in the other nostril if no response. Call 911. carboxymethylcell-hypromellose 0.25-0.3 % Drops, Liquid Gel 1 drp OPHTHALMIC (EYE) BID PRN (Reason: Other) carboxymethylcellulose sodium [TheraTears] 1 % [place],Gel 1 drp OPHTHALMIC (EYE) BID PRN (Reason: Other) cyanocobalamin (vitamin B-12) 1,000 mcg capsule 1,000 mcg PO DAILY Qty: 30 0RF potassium citrate-citric acid 1,100-334 mg/5 mL solution 5 ml PO DAILY Rx Instructions: 15 ml total daily prednisolone acetate 1 % drops,suspension 1 drp ophthalmic (eye) UD PRN (Reason: Other) Rx Instructions: 1 drop affected eye qid. start 2 days prior to surgery. bring bottle to surgery. phenazopyridine [Pyridium] 100 mg tablet 100 mg PO TID PRN (Reason: pain) Qty: 6 0RF Discontinued levofloxacin 750 mg Tablet 750 mg PO QAM 5 Days Qty: 5 0RF Discharge Orders: Discharge Order (Routine); Ordered 03/15/24 Ordered By: Clarence Monahan Admission Data Admit Date/Time: 03/13/24 00:04 Attending Provider: Jama Landaverde Admit Provider: Mercedes Wang Primary Care Provider: Caitie Aden Other Providers: China Yanez; Spenser Brunner. Other Interventions: Discharge Summary Assessment (RN) Last Done: 03/15/24 18:14 Supervising Physician Co-Signing Physician Notes I personally examined the patient and verified all brown points of history and exam, discussed case, and agree with decision making with Dr Monahan Still having ongoing flank pain. Discussed plan for transfer for more robust backup/interventional radiology. Vitals noted, in general she is awake and alert pleasant no distress. HEENT normocephalic atraumatic mucous membranes moist. Breathing unlabored no accessory muscle use good effort. Skin without rashes pallor or icterus. Neuro without focal deficits. Hydronephrosiswith ongoing intractable paintransfer for facility with interventional radiology backupappears to need nephrostomy tube as per urology recommendation. Otherwise as above. Resident Activity Tracking Resident Involvement: Resident Care Provided Care Provided: Adult [facility] Medicine
== END 2024-03-15 18:59 | disposition short-term general hospital (02) | DRG 690 ==
LOC: ED 18:24 → 2N 03-13 00:04 → SUATTDRO 03-13 00:04 → 2N 03-13 01:43

== ENCOUNTER 2024-05-09 11:34 | Inpatient (IN) ==
[2024-05-09] MEDS: SODIUM CHLORIDE 0.9% 1,000 ML IV ONE (12:15)
[2024-05-09 12:30] LABS: Basophils # (auto) 0.01 K/uL (0.00-0.20); Basophils % (auto) 0.3 %; Eosinophils # (auto) 0.01 K/uL (0.00-0.50); Eosinophils % (auto) 0.3 %; Hematocrit (blood only) 25.4 % (37.0-47.0); Hemoglobin 8.1 g/dl (12.0-16.0); Immature Granulocytes # (auto) 0.02 K/uL (0.01-0.20); Immature Granulocytes % (auto) 0.7 %; Lymphocytes % (auto) 23.9 %; Mean Corpuscular Hemoglobin 30.1 pg (25.0-34.0); Mean Corpuscular Hgb Conc 31.9 g/dL (32.0-36.0); Mean Corpuscular Volume 94.4 fL (80.0-100.0); Mean Platelet Volume 9.2 fL (9.4-12.4); Monocytes # (auto) 0.24 K/uL (0.11-0.59); Monocytes % (auto) 8.2 %; Neutrophils # (auto) 1.95 K/uL (1.40-6.50); Neutrophils % (auto) 66.6 %; Platelet Count 118 K/uL (130-400); RDW Coefficient of Variation 16.2 % (11.5-14.5); RDW Standard Deviation 54.3 fL (36.4-46.3); Red Blood Count 2.69 M/uL (4.20-5.40); White Blood Count 2.93 K/ul (4.8-10.8)
--- NOTE | 2024-05-09 12:30 | CT Scan Report ---
ABDOMEN AND PELVIS CT WITHOUT CONTRAST CT DOSE: 475.57 mGy.cm HISTORY: hematuria TECHNIQUE: Multiaxial CT images of the abdomen and pelvis were performed without contrast. A dose lo wering technique was utilized adhering to the principles of ALARA. COMPARISON STUDY: 03/26/2024 FINDINGS: ABDOMEN: There is stable moderate splenomegaly. Gallbladder is surgically absent. There is a stable s mall oblong increased density finding adjacent to the inferior aspect of the right hepatic lobe. Othe rwise the liver, spleen, pancreas, and adrenal glands have an unremarkable non-IV contrasted appearan ce. Right ureteral stent is well positioned. Stable atrophy of the right kidney. There are multiple s mall bilateral renal calculi. There is no hydronephrosis bilaterally. No ureteral calculi seen. No ab dominal aortic aneurysm. Pelvis: Stable left ventral hernia repair with mesh. Stable partial colectomy and left lower quadrant ostomy. Urinary bladder is decompressed. Uterus and adnexa are grossly unremarkable. No bowel inflam mation or obstruction seen. No free fluid, free air, or abscess. No enlarged adenopathy. Osseous structures: There is osteopenia. No acute osseous findings. IMPRESSION: 1. Multiple small bilateral renal calculi are grossly stable. No ureteral calculi or hydronephrosis s een. Right ureteral stent is well-positioned. 2. No acute findings seen. 3. Other stable findings as described. ACT 112: Negative or not required by law. The above report was generated using voice recognition software. It may contain grammatical, syntax o r spelling errors. Electronically signed by: Willem Parrish M.D. 05/09/2024 12:28 PM
[2024-05-09 12:41] LABS: BUN Creatinine Ratio 17.4 (10-20); Creatinine Clr Calc Pharmacy 64.9 ml/min; Potassium 3.7 mmol/L (3.5-5.1)
[2024-05-09 12:51] LABS: Partial Thromboplastin Ratio 0.9; Partial Thromboplastin Time 24 Seconds (21-31); Prothrombin Time 10.7 Seconds (9.0-12.0)
[2024-05-09 13:00] LABS: Appearance Urine Turbid (Clear); Bilirubin Urine Negative (Negative); Blood Urine 3+ (Negative); Color Urine Red; Glucose Urine UA Negative (Negative); Ketones Urine Negative (Negative); Leukocyte Esterase Urine 1+ (Negative); Nitrite Urine Negative (Negative); Protein Urine 3+ (Negative); Specific Gravity Urine 1.025 (1.000-1.030); Urobilinogen Urine Negative (Negative)
[2024-05-09 13:07] LABS: Bacteria Urine None Seen (None Seen); Epithelial Cell Urine 0-2 /hpf (0-2); RBC Urine >20 /hpf (0-2); WBC Urine >50 /hpf (0-5)
--- NOTE | 2024-05-09 14:11 | XRay Report ---
EXAM: Radiograph of the Chest 1 View INDICATION: Preoperative exam TECHNIQUE: Frontal view of the chest. COMPARISON: 03/12/[address] chest 02/07/2024 FINDINGS: Lungs and pleural spaces: Stable symmetrical air trapping. Stable interstitial and right apical scarring. Stable 1.0 x 0.7 cm left upper lobe nodule. No pleural effusion or pneumothorax. Stable groundglass density surrounding left lower lobe surgical clips. Heart: Shape and configuration within normal limits allowing for technique. Mediastinum: Normal contour. Bones/joints: No fracture, erosion or dislocation. Soft tissues: No abnormality noted. No radiopaque foreign body noted. Upper abdomen: No abnormality noted. IMPRESSION: 1. No interval change. No acute disease. 2. Stable left upper lobe nodule and groundglass density in the left lower lobe with associated surgical clips. ACT 112: N/A Electronically signed by Jacqui Milner 05-09-2024 2:10 PM
--- NOTE | 2024-05-09 14:39 | History & Physical Report ---
Date of Service May 09, 2024 Assessment & Plan (1) Hematuria, gross: Plan: The patient states that she has had persistent hematuria for the past 2 weeks. She has a right ureter stent in place. ED physician has contacted urology who will see her in consultation (2) Acute blood loss anemia: Plan: In addition to pancytopenia. Hemoglobin is down to 8.1. Blood transfusion consent form has been signed by the patient in case transfusion becomes necessary. Serial labs (3) Current chronic use of systemic steroids: Plan: She takes low-dose oral prednisone chronically. Intravenous hydrocortisone for now (4) ILD (interstitial lung disease): Plan: By history. Chest x-ray is pending (5) Colostomy status: Plan: Functioning left colostomy is present after multiple abdominal surgeries related to her history of rectal carcinoma (6) SLE (systemic lupus erythematosus): Plan: Steroid-dependent. Plan To be determined Admission and Anticipated Discharge Date Admission Date: May 09, 2024 History of Present Illness Chief Complaint: Persistent gross hematuria Primary Care Provider: Caitie Aden DO 63-year-old white female who states she has had gross hematuria for the past 2 weeks. She has called urology repeatedly but has not had any return calls. She finally gave up and came to the ED for further evaluation. Hemoglobin is 8.1. She apparently has previous radiation to the abdomen and multiple abdominal surgeries and has a left-sided colostomy that is currently functioning in place. She also has the presence of a right ureter stent. ER has contacted urology who anticipates the need for cystoscopy for further evaluation. She has signed a consent for blood transfusion if it becomes necessary. She is steroid- dependent and will be given intravenous hydrocortisone for now. Allergies Allergy/AdvReac Type Severity Reaction Status Date / Time cefoxitin Allergy Unknown Unknown Verified 05/09/24 13:41 moxifloxacin [From Avelox] Allergy Unknown Rash Verified 05/09/24 13:41 Penicillins Allergy Unknown Hives Verified 05/09/24 13:41 petrolatum,white Allergy Unknown see notes: Verified 05/09/24 13:41 [From Petroleum Jelly] beat red eyes Sulfa (Sulfonamide Allergy Unknown Brain/Head Verified 05/09/24 13:41 Antibiotics) pressure vancomycin Allergy Unknown Unknown Verified 05/09/24 13:41 diphenhydramine Allergy Verified 05/09/24 13:41 acetaminophen [From Tylenol] AdvReac Unknown Fever/see Verified 05/09/24 13:41 notes amoxicillin AdvReac Verified 05/09/24 13:41 Home Medications Medication Instructions Recorded Confirmed Type calcium 600 mg (as 1 tab PO DAILY 10/26/23 05/09/24 History carbonate)-vitamin D3 10 mcg (400 unit) tablet (Calcium 600 + D(3)) carboxymethylcellulose sodium 1 % 1 drp ophthalmic (eye) DAILY PRN 10/26/23 05/09/24 History eye gel in a dropperette sjrogens syndrome (TheraTears) clonazepam 1 mg tablet 1 mg PO TID Anxiety/Insomnia 10/26/23 05/09/24 History docusate sodium 100 mg capsule 200 mg PO DAILY 10/26/23 05/09/24 History (Colace) levothyroxine 25 mcg tablet 25 mcg PO QAM 10/26/23 05/09/24 History naloxone 4 mg/actuation nasal spray 4 mg intranasal UD PRN Other 10/26/23 05/09/24 History omeprazole 20 mg capsule,delayed 20 mg PO QAM 10/26/23 05/09/24 History release prednisone 1 mg tablet 2 mg PO DAILY 10/26/23 05/09/24 History cyanocobalamin (vitamin B-12) 1,000 mcg PO DAILY #30 caps 11/18/23 05/09/24 Rx 1,000 mcg capsule oxycodone 5 mg tablet 5 mg PO Q6H PRN pain #10 tabs 04/01/24 05/09/24 Rx d-mannose 500 mg capsule (AZO 500 mg PO DAILY PRN Flare 04/13/24 05/09/24 History D-Mannose) carboxymethylcellulose 0 drp ophthalmic (eye) HS 05/09/24 05/09/24 History sod-hypromell 0.25 %-0.3 % eye liquid gel drops Past Med/Surg History Problem List (Updated 05/09/24 @ 14:37 by Tj Young MD) Acute blood loss anemia Hematuria, gross Change or removal of drains Current chronic use of systemic steroids (Acute) Hydroureteronephrosis (Acute) Complicated urinary tract infection (Acute) Acute right flank pain (Acute) Sjogrens syndrome LIP (lymphoid interstitial pneumonitis) ILD (interstitial lung disease) Multiple idiopathic pulmonary cysts Enterococcal bacteremia Anxiety Colostomy status Pancytopenia Secondary thrombocytopenia SLE (systemic lupus erythematosus) Medical History Lung nodules History of recent hospitalization (03/2024) LIP (lymphoid interstitial pneumonitis) ILD (interstitial lung disease) History of sepsis (01/2024) Lupus (systemic lupus erythematosus) Sjogren syndrome History of COVID-[address] History of postoperative nausea and vomiting History of chemotherapy History of anal cancer MALT lymphoma Sepsis Hydronephrosis Ureteral calculi Nephrolithiasis Raynaud's disease Medullary sponge kidney Panic disorder Hypothyroidism Surgical History History of surgery History of urologic surgery History of urologic surgery (03/2024) History of left cataract surgery History of right cataract surgery History of intestinal surgery History of endoscopy History of colonoscopy History of oral surgery History of laparoscopic cholecystectomy History of lithotripsy H/O breast biopsy H/O dilation and curettage S/P tonsillectomy and adenoidectomy H/O wrist surgery H/O ventral hernia repair (2022) Family History Other Family history non-contributory Social History Smoking Status: Former smoker Tobacco Type: Cigarettes Second Hand Exposure: No; Do You Dip or Chew Tobacco: No; Hx Substance Use: No Preferred Language: Citizen Of [place] Communication Ability: Effective Visual Impairment: No Limitations [employer] Internship Required: No Beliefs That Will Affect Care: None Current Living Situation: Spouse Current Living Situation Comment: With Feels Safe at Home: Yes Assistive Devices: Denture - Upper, Denture - Lower, Glasses and Other Review of Systems 2 Review of Systems: Constitutionalno fever or chills ENTno blurred vision, no double vision, no epistaxis, no sore throat Respiratoryno cough, no wheezing, no shortness of breath Cardiacno palpitations, no chest pain, no syncope Janes nausea, vomiting, diarrhea, melena, hematochezia GUno urinary retention, no urinary incontinence, no dysuria. She states she has had gross hematuria now for at least 2 weeks Musculoskeletalno joint pain, no muscle tenderness Skinno bruising, no rashes, no pruritus Neurono isolated weakness, no paresthesia, no weakness Psychno depression, no anxiety Physical Exam 2 Physical Exam: General-alert and oriented x3, no fever, no chills HEENT-head atraumatic and normocephalic, pupils equal and reactive to light, extraocular muscles intact Neck-no lymphadenopathy or thyromegaly, trachea midline Chest-clear to auscultation. No rales, wheezing or rhonchi Cardiac-regular rate and rhythm, normal S1 and S2 Abdomen-normal bowel sounds, no hepatosplenomegaly. Multiple scars present. Functioning left mid abdomen colostomy Extremities-no cyanosis, clubbing, or edema Neuro-cranial nerves II through XII intact, motor and sensory function within normal limits, strength symmetrical, no focal deficits Psych-normal affect, normal mood Results & Data Results & Data Vital Signs (Past 12 Hours) Vital Signs Temp Pulse Resp BP Pulse Ox O2 Del Method 05/09/24 12:23 86 05/09/24 11:39 36.3 C L 107 H 20 98/61 L 100 Room Air Laboratory Results 05/09/24 12:02 05/09/24 12:02 Code Status & VTE Plan Code Status Full code PG Care Time/CCT Total # of Minutes Spent Total Time Spent with Patient: Total time spent is greater than 50% in coordination of care (as documented) at patient's floor/unit and/or counseling patient: Coding Level of Care Code 11445 INT INP/OBS CARE 3/75MIN Diagnoses Hematuria, gross R31.0 Acute blood loss anemia D62 Current chronic use of systemic steroids Z79.52 ILD (interstitial lung disease) J84.9 Colostomy status Z93.3 SLE (systemic lupus erythematosus) M32.9
[2024-05-09] MEDS ORDERED: ONDANSETRON INJ 2 MG/ML 2 ML VIAL IV PRN (16:41)
[2024-05-09] MEDS ORDERED: HYDROCORTISONE SOD SUCCINATE 100 MG/2 ML VIAL IV SCH (16:41)
[2024-05-09] MEDS: clonazePAM 1 MG TAB PO SCH (17:49)
[2024-05-09] MEDS: SODIUM CHLORIDE 0.9% 1,000 ML IV SCH (18:14)
[2024-05-09] MEDS: HYDROCORTISONE SOD 25 MG in SYRINGE 0 ML IV SCH (18:30)
[2024-05-09] MEDS: traMADol HCL 50 MG TABLET PO STA (20:10)
[2024-05-09 20:32] LABS: Hematocrit (blood only) 21.7 % (37.0-47.0); Hemoglobin 6.9 g/dl (12.0-16.0); Mean Corpuscular Hemoglobin 30.1 pg (25.0-34.0); Mean Corpuscular Hgb Conc 31.8 g/dL (32.0-36.0); Mean Corpuscular Volume 94.8 fL (80.0-100.0); Mean Platelet Volume 9.5 fL (9.4-12.4); Platelet Count 94 K/uL (130-400); RDW Coefficient of Variation 16.5 % (11.5-14.5); RDW Standard Deviation 55.8 fL (36.4-46.3); Red Blood Count 2.29 M/uL (4.20-5.40); White Blood Count 2.42 K/ul (4.8-10.8)
[2024-05-09 20:34] LABS: Basophils # (auto) 0.01 K/uL (0.00-0.20); Basophils % (auto) 0.4 %; Immature Granulocytes # (auto) 0.03 K/uL (0.01-0.20); Immature Granulocytes % (auto) 1.2 %; Lymphocytes # (auto) 0.49 K/uL (1.20-3.40); Lymphocytes % (auto) 20.2 %; Monocytes # (auto) 0.18 K/uL (0.11-0.59); Monocytes % (auto) 7.4 %; Neutrophils # (auto) 1.71 K/uL (1.40-6.50); Neutrophils % (auto) 70.8 %; Polychromasia 1+; Tear Drop Cells 1+
[2024-05-09 20:38] LABS: BUN Creatinine Ratio 10.3 (10-20); Calcium 8.3 mg/dl (8.6-10.3); Potassium 3.4 mmol/L (3.5-5.1)
[2024-05-09] MEDS ORDERED: SODIUM CHLORIDE 0.9% 100 ML IV PRN (20:41)
[2024-05-09] MEDS ORDERED: SODIUM CHLORIDE 0.9% 50 ML IV PRN (20:41)
--- NOTE | 2024-05-09 20:45 | Emergency Department Note ---
History of Present Illness General Chief complaint: Hematuria Stated complaint: BLEEDING AND PASSING CLOTS W/ URINE, DAY 18 Time Seen by Provider: 05/09/24 11:52 History of Present Illness Provider complaint: Hematuria 63-year-old female presents emergency department for hematuria. Patient reports she has been having hematuria for the last 2-1/2 weeks. She reports that she is becoming increasingly short of breath. No chest pain. Patient is not on any blood thinners. Home Medications Medication Instructions Recorded Confirmed Type calcium 600 mg (as 1 tab PO DAILY 10/26/23 05/09/24 History carbonate)-vitamin D3 10 mcg (400 unit) tablet (Calcium 600 + D(3)) carboxymethylcellulose sodium 1 % 1 drp ophthalmic (eye) DAILY PRN 10/26/23 05/09/24 History eye gel in a dropperette sjrogens syndrome (TheraTears) clonazepam 1 mg tablet 1 mg PO TID Anxiety/Insomnia 10/26/23 05/09/24 History docusate sodium 100 mg capsule 200 mg PO DAILY 10/26/23 05/09/24 History (Colace) levothyroxine 25 mcg tablet 25 mcg PO QAM 10/26/23 05/09/24 History naloxone 4 mg/actuation nasal spray 4 mg intranasal UD PRN Other 10/26/23 05/09/24 History omeprazole 20 mg capsule,delayed 20 mg PO QAM 10/26/23 05/09/24 History release prednisone 1 mg tablet 2 mg PO DAILY 10/26/23 05/09/24 History cyanocobalamin (vitamin B-12) 1,000 mcg PO DAILY #30 caps 11/18/23 05/09/24 Rx 1,000 mcg capsule oxycodone 5 mg tablet 5 mg PO Q6H PRN pain #10 tabs 04/01/24 05/09/24 Rx d-mannose 500 mg capsule (AZO 500 mg PO DAILY PRN Flare 04/13/24 05/09/24 History D-Mannose) carboxymethylcellulose 0 drp ophthalmic (eye) HS 05/09/24 05/09/24 History sod-hypromell 0.25 %-0.3 % eye liquid gel drops Allergies Allergy/AdvReac Type Severity Reaction Status Date / Time cefoxitin Allergy Unknown Unknown Verified 05/09/24 13:41 moxifloxacin [From Avelox] Allergy Unknown Rash Verified 05/09/24 13:41 Penicillins Allergy Unknown Hives Verified 05/09/24 13:41 petrolatum,white Allergy Unknown see notes: Verified 05/09/24 13:41 [From Petroleum Jelly] beat red eyes Sulfa (Sulfonamide Allergy Unknown Brain/Head Verified 05/09/24 13:41 Antibiotics) pressure vancomycin Allergy Unknown Unknown Verified 05/09/24 13:41 diphenhydramine Allergy Unknown Verified 05/09/24 19:07 acetaminophen [From Tylenol] AdvReac Unknown Fever/see Verified 05/09/24 13:41 notes amoxicillin AdvReac Unknown Verified 05/09/24 19:07 cefuroxime AdvReac Unknown Verified 05/09/24 19:08 mesalamine AdvReac Unknown Verified 05/09/24 19:08 paroxetine AdvReac Unknown Verified 05/09/24 19:09 sertraline AdvReac Unknown Verified 05/09/24 19:09 Past Med/Surg History Problem List (Updated 05/09/24 @ 20:45 by Clarence Ruano MD) Acute blood loss anemia Hematuria, gross (Acute) Change or removal of drains Current chronic use of systemic steroids (Acute) Hydroureteronephrosis (Acute) Complicated urinary tract infection (Acute) Acute right flank pain (Acute) Sjogrens syndrome LIP (lymphoid interstitial pneumonitis) ILD (interstitial lung disease) Multiple idiopathic pulmonary cysts Enterococcal bacteremia Anxiety Colostomy status Pancytopenia Secondary thrombocytopenia SLE (systemic lupus erythematosus) Medical History Lung nodules monitors History of recent hospitalization (03/2024) for kidney stones, [facility] tx to cesario Cook for nephrology tube placement. LIP (lymphoid interstitial pneumonitis) not that pt aware of in her hx - verifies admitted [facility] for sepsis jan 2024. ILD (interstitial lung disease) pt not sure , chest xrays show something of cloudy apperance. History of sepsis (01/2024) hospitalized [facility]. Lupus (systemic lupus erythematosus) Sjogren syndrome History of COVID-19 approx [address] History of postoperative nausea and vomiting with post op medication given on empty stomach History of chemotherapy hx complications with chemotherapy/including sepsis. History of anal cancer dx 2017 - multiple sx's and hx chemo. MALT lymphoma dx 2016 - sx right side face and hx radiation. Monitored. Sepsis Hydronephrosis Ureteral calculi kidney stones per pt Nephrolithiasis Raynaud's disease Medullary sponge kidney Panic disorder Hypothyroidism Surgical History History of surgery x4 related to dx MALT. 1) right side face, parotid gland 2) left side face 3) ganglion cyst 4) wrist and knee History of urologic surgery hx stents x3 (current stent on right side) History of urologic surgery (03/2024) nephrology tube placement History of left cataract surgery History of right cataract surgery History of intestinal surgery multiple: 1) resection/ileostomy 2) ilieostomy reversal 3) anal fissure 4) colostomy 5) colostomy prolpapse repair History of endoscopy History of colonoscopy History of oral surgery multiple/teeth removal. History of laparoscopic cholecystectomy approx 12/2023 or 01/2024 History of lithotripsy multiple H/O breast biopsy H/O dilation and curettage S/P tonsillectomy and adenoidectomy H/O wrist surgery H/O ventral hernia repair (2022) with mesh, left Family History Other Family history non-contributory Social History Smoking Status: Former smoker Tobacco Type: Cigarettes Second Hand Exposure: No; Do You Dip or Chew Tobacco: No; Hx Alcohol Use: No Hx Substance Use: No Preferred Language: Tunisian Communication Ability: Effective Visual Impairment: No Limitations Sql Analyst Required: No Beliefs That Will Affect Care: None Current Living Situation: Spouse Current Living Situation Comment: With Feels Safe at Home: Yes Assistive Devices: Denture - Upper, Denture - Lower and Glasses Physical Exam Vital Signs Vital Signs - 24 hr 05/09/24 11:39 05/09/24 11:57 05/09/24 12:23 Temperature 36.3 C L Temperature Source Temporal Artery Scan Pulse Rate 107 H 79 86 Pulse Rate from SpO2 Sensor Pulse Rhythm Regular Respiratory Rate 20 18 Respiratory Effort / Characteristics Non-Labored Respiratory Depth Normal Blood Pressure 98/61 L Blood Pressure Mean 73 Pulse Oximetry 100 96 Oxygen Delivery Method Room Air Room Air Sepsis Recent Fever Within 48 Hours No Sepsis New/Unexplained Change in Mental Status No Sepsis Action Taken by Nursing No Action Required 05/09/24 12:30 05/09/24 13:00 05/09/24 13:00 Temperature Temperature Source Pulse Rate 79 79 Pulse Rate from SpO2 Sensor 79 79 Pulse Rhythm Respiratory Rate 13 13 Respiratory Effort / Characteristics Respiratory Depth Blood Pressure 109/58 L 101/59 L 101/59 L Blood Pressure Mean 73 73 77 Pulse Oximetry 98 98 Oxygen Delivery Method Room Air Room Air Sepsis Recent Fever Within 48 Hours Sepsis New/Unexplained Change in Mental Status Sepsis Action Taken by Nursing 05/09/24 13:00 05/09/24 13:00 05/09/24 13:31 Temperature Temperature Source Pulse Rate 78 Pulse Rate from SpO2 Sensor 78 Pulse Rhythm Respiratory Rate 15 Respiratory Effort / Characteristics Respiratory Depth Blood Pressure 101/59 L 101/59 L 95/65 L Blood Pressure Mean 77 77 73 Pulse Oximetry 98 Oxygen Delivery Method Room Air Sepsis Recent Fever Within 48 Hours Sepsis New/Unexplained Change in Mental Status Sepsis Action Taken by Nursing Physical Exam GENERAL: oriented to person, place, and time. appears well-developed and well- nourished. She does not appear distressed. HENT: Exam performed. -Head: Normocephalic and atraumatic. -Right Ear: External ear normal. No mastoid erythema -Left Ear: External ear normal. No mastoid erythema -Mouth/Throat: The oropharynx is clear and moist. No trismus in the jaw. No dental abscesses or uvula swelling. No oropharyngeal exudate or tonsillar abscesses. EYES: Conjunctivae and EOM are normal.Right eye exhibits no discharge. Left eye exhibits no discharge. No scleral icterus. NECK: Normal range of motion. Neck supple. No JVD present. No tracheal deviation and normal range of motion present. CV: Normal rate, regular rhythm, normal heart sounds and intact distal pulses. There is no peripheral edema. Palpable radial pulses bue. PULM/CHEST: Effort normal and breath sounds normal. No respiratory distress. No stridor. no wheezes.no rales. -Chest Wall: no tenderness to palpation ABD: The abdomen is soft. Bowel sounds are normal. no distension. No mass is present. There is no tenderness. There is no rebound, no guarding, no Maldonado's sign and no tenderness at McBurney's point. Rovsig negative MUSC/SKEL: Normal range of motion. There is no peripheral edema, tenderness or deformity. NEURO: Motor and sensation grossly intact. SKIN: Skin is warm and dry. not diaphoretic. PSYCH: normal mood and affect. Behavior is normal. Judgment and thought content normal. Course Course 1152: The patient was evaluated in room B6. A complete history and physical exam was performed Cardiac monitoring: An order was placed for continuous cardiac monitoring. The monitor shows a rate of 90 with sinus rhythm interpreted by me 1256: Vital signs stable. Patient's hemoglobin is down to 8.1 down from 12 3 weeks ago. Patient is peeing gross blood. CT abdomen pelvis is unremarkable. Discussed case with on-call [facility] urology Dr. Oreilly. Both he and I agree that the patient should be admitted. After discussion, we decided to hold off on blood transfusion at this time as the patient's hemoglobin is below 8 and her blood pressure is stable. Dr. Oreilly states he will evaluate the patient for further imaging such as cystoscopy when he evaluate the patient. Patient will be admitted to the [facility] hospitalist team. Administered Medications Clonazepam (Clonazepam 1 Mg Tab) 1 mg PO TID [facility] Stop: 06/08/24 16:40 Last Admin: 05/09/24 17:49 Dose: Not Given Documented By: CSC Sodium Chloride (Nss) 1,000 mls @ 50 mls/hr IV .Q20H SHAYY Stop: 05/10/24 16:40 Last Admin: 05/09/24 18:14 Dose: 50 mls/hr Documented By: CSC Hydrocortisone Sodium (Succinate 25 mg/ Syringe) 0.5 mls @ 4 mls/min IV Q12H SHAYY Stop: 06/08/24 16:59 Last Admin: 05/09/24 18:30 Dose: 4 mls/min Documented By: CSC Discontinued Medications Sodium Chloride (Nss) 1,000 mls @ 999 mls/hr IV .Q1H1M ONE Stop: 05/09/24 12:56 Last Infusion: 05/09/24 12:55 Dose: Infused Documented By: Admin: 05/09/24 12:15 Dose: 999 mls/hr Documented By: SRL Tramadol HCl (Tramadol Hcl 50 Mg Tablet) 50 mg PO NOW STA Stop: 05/09/24 19:03 Last Admin: 05/09/24 20:10 Dose: Not Given Documented By: MEETA Medical Decision Making Laboratory Data Attestation: I reviewed the patient's lab results. 05/09/24 20:02 05/09/24 20:02 Lab Results 05/09/24 Range/Units 12:02 WBC 2.93 L (4.8-10.8) K/ul RBC 2.69 L (4.20-5.40) M/uL Hgb 8.1 L (12.0-16.0) g/dl Hct 25.4 L (37.0-47.0) % MCV 94.4 (80.0-100.0) fL MCH 30.1 (25.0-34.0) pg MCHC 31.9 L (32.0-36.0) g/dL RDW Std Deviation 54.3 H (36.4-46.3) fL RDW Coeff of Bertha 16.2 H (11.5-14.5) % Plt Count 118 L (130-400) K/uL MPV 9.2 L (9.4-12.4) fL Immature Gran % (Auto) 0.7 % Neut % (Auto) 66.6 % Lymph % (Auto) 23.9 % [place] % (Auto) 8.2 % Eos % (Auto) 0.3 % Baso % (Auto) 0.3 % Neut # (Auto) 1.95 (1.40-6.50) K/uL Lymph # (Auto) 0.70 L (1.20-3.40) K/uL [place] # (Auto) 0.24 (0.11-0.59) K/uL Eos # (Auto) 0.01 (0.00-0.50) K/uL Baso # (Auto) 0.01 (0.00-0.20) K/uL Immature Gran # (Auto) 0.02 (0.01-0.20) K/uL PT 10.7 (9.0-12.0) Seconds INR 1.0 (0.9-1.1) APTT 24 (21-31) Seconds PTT Ratio 0.9 Sodium 139 (136-145) mmol/L Potassium 3.7 (3.5-5.1) mmol/L Chloride 108 H (98-107) mmol/L Carbon Dioxide 27 (21-32) mmol/L Anion Gap 4 (3-11) BUN 15 (6-23) mg/dl Creatinine 0.86 (0.6-1.2) mg/dl Est Cr Clr Drug Dosing 64.9 ml/min eGFR 76.33 BUN/Creatinine Ratio 17.4 (10-20) Glucose 108 H (70-99(Fasting)) mg/dl Calcium 9.0 (8.6-10.3) mg/dl Urine Color Red Urine Appearance Turbid A (Clear) Urine pH 7.0 (4.5-7.5) Ur Specific [place] 1.025 (1.000-1.030) Urine Protein 3+ H (Negative) Urine Glucose (UA) Negative (Negative) Urine Ketones Negative (Negative) Urine Blood 3+ H (Negative) Urine Nitrite Negative (Negative) Urine Bilirubin Negative (Negative) Urine Urobilinogen Negative (Negative) Ur Leukocyte Esterase 1+ H (Negative) Urine RBC >20 H (0-2) /hpf Urine WBC >50 H (0-5) /hpf Ur Epithelial Cells 0-2 (0-2) /hpf Urine Bacteria None Seen (None Seen) Imaging Data Radiologist's Impression: Abdomen/Pelvis CT 05/09/24 11:[address] WITHOUT CONTRAST CT DOSE: 475.57 mGy.cm HISTORY: hematuria TECHNIQUE: Multiaxial CT images of the abdomen and pelvis were performed without contrast. A dose lowering technique was utilized adhering to the principles of ALARA. COMPARISON STUDY: 03/26/2024 FINDINGS: ABDOMEN: There is stable moderate splenomegaly. Gallbladder is surgically absent. There is a stable small oblong increased density finding adjacent to the inferior aspect of the right hepatic lobe. Otherwise the liver, spleen, pancreas, and adrenal glands have an unremarkable non-IV contrasted appearance. Right ureteral stent is well positioned. Stable atrophy of the right kidney. There are multiple small bilateral renal calculi. There is no hydronephrosis bilaterally. No ureteral calculi seen. No abdominal aortic aneurysm. Pelvis: Stable left ventral hernia repair with mesh. Stable partial colectomy and left lower quadrant ostomy. Urinary bladder is decompressed. Uterus and adnexa are grossly unremarkable. No bowel inflammation or obstruction seen. No free fluid, free air, or abscess. No enlarged adenopathy. Osseous structures: There is osteopenia. No acute osseous findings. IMPRESSION: 1. Multiple small bilateral renal calculi are grossly stable. No ureteral calculi or hydronephrosis seen. Right ureteral stent is well-positioned. 2. No acute findings seen. 3. Other stable findings as described. ACT 112: Negative or not required by law. The above report was generated using voice recognition software. It may contain grammatical, syntax or spelling errors. Electronically signed by: Willem Parrish M.D. 05/09/2024 12:28 PM Chest X-Ray 05/09/24 13:33 EXAM: Radiograph of the Chest 1 View INDICATION: Preoperative exam TECHNIQUE: Frontal view of the chest. COMPARISON: 03/12/[address] chest 02/07/2024 FINDINGS: Lungs and pleural spaces: Stable symmetrical air trapping. Stable interstitial and right apical scarring. Stable 1.0 x 0.7 cm left upper lobe nodule. No pleural effusion or pneumothorax. Stable groundglass density surrounding left lower lobe surgical clips. Heart: Shape and configuration within normal limits allowing for technique. Mediastinum: Normal contour. Bones/joints: No fracture, erosion or dislocation. Soft tissues: No abnormality noted. No radiopaque foreign body noted. Upper abdomen: No abnormality noted. IMPRESSION: 1. No interval change. No acute disease. 2. Stable left upper lobe nodule and groundglass density in the left lower lobe with associated surgical clips. ACT 112: N/A Electronically signed by Jacqui Milner 05-09-2024 2:10 PM ECG Data Attestation: I personally reviewed and interpreted this ECG as follows: Rate (beats per minute): 90 Rhythm: + normal sinus ECG Intervals/blocks: + Normal QRS, + Normal MN and + Normal QT-c ECG ST segments: + Normal ST segments [facility] Narrative 1152: The patient was evaluated in room B6. A complete history and physical exam was performed Cardiac monitoring: An order was placed for continuous cardiac monitoring. The monitor shows a rate of 90 with sinus rhythm interpreted by me 1256: Vital signs stable. Patient's hemoglobin is down to 8.1 down from 12 3 weeks ago. Patient is peeing gross blood. CT abdomen pelvis is unremarkable. Discussed case with on-call [facility] urology Dr. Oreilly. Both he and I agree that the patient should be admitted. After discussion, we decided to hold off on blood transfusion at this time as the patient's hemoglobin is below 8 and her blood pressure is stable. Dr. Oreilly states he will evaluate the patient for further imaging such as cystoscopy when he evaluate the patient. Patient will be admitted to the [facility]ist team. Impression & Plan Hematuria, gross Discharge Plan Visit Data Chief Complaint: Hematuria Stated Complaint: BLEEDING AND PASSING CLOTS W/ URINE, DAY 18 ED Provider: Clarence Ruano Discharge Problem: Hematuria, gross Patient Disposition: Admitted As Inpatient Discharge Instructions Interventions: ED Discharge Assessment Last Done: 05/09/24 15:55
[2024-05-09] MEDS: ARTIFICIAL TEARS OP SCH (20:59)
[2024-05-09] MEDS: traMADol HCL 50 MG TABLET PO PRN (21:54)
[2024-05-10] MEDS: ACETAMINOPHEN 1,000 MG/100 ML VIAL IV STA (01:42)
[2024-05-10 03:54] LABS: Basophils # (auto) 0.01 K/uL (0.00-0.20); Basophils % (auto) 0.4 %; Hematocrit (blood only) 23.5 % (37.0-47.0); Hemoglobin 7.6 g/dl (12.0-16.0); Immature Granulocytes # (auto) 0.04 K/uL (0.01-0.20); Immature Granulocytes % (auto) 1.6 %; Lymphocytes # (auto) 0.69 K/uL (1.20-3.40); Lymphocytes % (auto) 27.8 %; Mean Corpuscular Hemoglobin 29.7 pg (25.0-34.0); Mean Corpuscular Hgb Conc 32.3 g/dL (32.0-36.0); Mean Corpuscular Volume 91.8 fL (80.0-100.0); Mean Platelet Volume 9.5 fL (9.4-12.4); Monocytes # (auto) 0.21 K/uL (0.11-0.59); Monocytes % (auto) 8.5 %; Neutrophils # (auto) 1.53 K/uL (1.40-6.50); Neutrophils % (auto) 61.7 %; Platelet Count 99 K/uL (130-400); RDW Coefficient of Variation 16.3 % (11.5-14.5); RDW Standard Deviation 52.8 fL (36.4-46.3); Red Blood Count 2.56 M/uL (4.20-5.40); White Blood Count 2.48 K/ul (4.8-10.8)
[2024-05-10 04:08] LABS: Creatinine Clr Calc Pharmacy 59.9 ml/min; Potassium 3.7 mmol/L (3.5-5.1)
[2024-05-10 04:15] LABS: Basophilic Stippling 1+; Polychromasia 1+
[2024-05-10] MEDS: SODIUM CHLORIDE 0.9% 500 ML IV ONE (04:55)
[2024-05-10] MEDS: LEVOTHYROXINE SODIUM 25 MCG TABLET PO SCH (06:05)
[2024-05-10] MEDS: DOCUSATE SODIUM 100 MG CAP PO SCH (08:17)
[2024-05-10] MEDS: CALCIUM 600MG + VIT D 400 IU TAB PO SCH (08:17)
[2024-05-10] MEDS: CYANOCOBALAMIN (B-12) 500 MCG TABLET PO SCH (08:17)
[2024-05-10] MEDS: PANTOprazole 40 MG TAB PO SCH (08:18)
--- NOTE | 2024-05-10 08:33 | Hospitalist Progress Note ---
Date of Service May 10, 2024 Assessment & Plan (1) Hematuria, gross: (2) Acute blood loss anemia: (3) Current chronic use of systemic steroids: (4) ILD (interstitial lung disease): (5) Colostomy status: (6) SLE (systemic lupus erythematosus): Plan Patient presented on 05/09 for ongoing hematuria x 18 days prior to admission. #Hematuria Etiology may be secondary to recent right ureteral stent placement v. h/o radiation cystitis While malignancy remains within the differential (given patient h/o colon cancer), will differ additional workup at this time as two potential sources of hematuria identified Hgb 8.1 -> 6.9 -> 7.6 (s/p 1u pRBCs) Right ureter stent in place on A/P CT; no obstructive kidney stones UCx drawn on 05/09 without growth; however, patient was recently on course of Macrobid outpatient (Rx 04/26) Urology consult appreciated No planned urologic intervention on 05/10, okay to eat If clinical deterioration, would need to consider transfer for nephrostomy tube + stent removal Note: patient would like to avoid repeat nephrostomy tube if at all possible, as she had significant pain with her most recent nephrostomy tube (removed on 04/16) Trend H&H for now Additional 1u pRBCs ordered, held [facility] navigator consult appreciated for referral to reconstructive surgery with [facility] #Acute blood loss anemia Thought to be secondary to hematuria and pancytopenia #Chronic steroid use Patient takes prednisone 2 mg p.o. daily for her SLE D/c hydrocortisone 25mg IV q12h Restart prednisone daily #ILD Noted; CXR on arrival did not reveal any acute disease #Colostomy status H/o rectal carcinoma Daily colostomy care Disposition: Continued stay on MedSurg Regular diet, okay to eat as no planned acute urologic intervention at this time VTE PPx: Hold chemical DVT PPx in setting of gross hematuria + acute blood loss anemia; SCDs Admission and Anticipated Discharge Date Admission Date: May 09, 2024 Subjective Gilma reports she is still having bright red blood and clots in her urine today on 05/10. She has had ongoing hematuria over the past 19 days. Patient reports that she did well with her blood transfusion last night (no fever, chills, rashes, SOB, or reactions noted), however she is feeling exhausted this morning as she did not sleep well. Additionally, she will have occasional dull, aching pain on her left flank that can last for hours at a time. She believes this might be secondary to either her stoma or mesh secondary to complex history of abdominal surgeries. Patient was recently placed on antibiotics for potential UTI, but was told she did not have an infection and was taken off the antibiotics. Patient also expresses concern due to her history of radiation for cancer treatment, that the bleeding could be secondary to radiation cystitis and that she would require a cystoscopy. Patient is currently colostomy status, but denies any change in stool consistency (no bright red blood in her stool). She has discussed reconstructive surgery with her urologist (Dr. Bonilla) in the past. She also has h/o nephrostomy tube in the past, but reports she did not do well with it in regard to pain management. ROS: Patient endorses dizziness, lightheadedness, weakness, headache, nausea, dysuria, and burning with urination when she passes clots. Patient denies fever, chills, night sweats, syncope, chest pain, chest palpitations, SOB, vomiting, saddle esthesia, or loss of urinary continence. Review of Systems Review of Systems: See HPI above Physical Exam Physical Exam: General: no acute distress; fatigue; at bedside; non-toxic appearing; frail appearing; cooperative; SpO2 98% on RA HEENT: normocephalic, atraumatic; no scleral icterus; PERRLA; vision and hearing grossly intact Neck: supple; no lymphadenopathy; trachea midline Skin: warm, dry without signs of tenting; no cyanosis; no rashes, bruising, lesions, or erythema noted CV: chest wall NTP; RRR; S1/S2 normal; no murmurs/rubs/gallops; pulses intact and symmetric at radial, DP, and PT Lungs: no acute respiratory distress; symmetrical chest wall expansion; clear breath sounds across all lung sanchez w/o adventitious sounds; no wheezing ABD: Soft; colostomy in place without signs of erythema, infection, or drainage; left flank is TTP; no rashes or bruising noted on the left flank; BS present; no rebound/guarding; no distention : Positive right CVA tenderness MSK: no tics or fasciculations; no edema noted in the LEs b/l, nonerythematous Neuro: A&Ox3; normal mood and affect; fluent speech; no focal deficits; sensation intact and symmetric in the lower extremities bilaterally Results & Data Results & Data Vital Signs (Past 12 Hours) Vital Signs Temp Pulse Pulse Resp BP BP Pulse Ox 05/10/24 07:20 36.5 C 72 16 104/63 98 05/10/24 05:46 36.4 C L 64 16 101/63 98 05/10/24 04:41 36.3 C L 69 16 87/42 L 98 05/10/24 02:39 36.5 C 75 16 99/62 L 97 05/10/24 01:55 36.4 C L 75 16 89/50 L 97 05/10/24 00:55 36.5 C 74 16 97/57 L 96 05/10/24 00:25 36.4 C 75 18 94/57 L 97 05/10/24 00:10 36.6 C 81 18 94/57 L 95 05/10/24 00:00 36.7 C 84 16 96/58 L 96 05/09/24 23:55 36.7 C 82 18 96/58 L 96 05/09/24 22:49 36.7 C 83 16 98/58 L 97 O2 Del Method 05/10/24 07:20 Room Air 05/10/24 05:46 Room Air 05/10/24 04:41 Room Air 05/10/24 02:39 05/10/24 01:55 05/10/24 00:55 05/10/24 00:25 05/10/24 00:10 05/10/24 00:00 Room Air 05/09/24 23:55 05/09/24 22:49 Room Air Laboratory Results Abnormal lab results 05/09/24 05/09/24 05/09/24 Range/Units 12:02 20:02 21:25 WBC 2.93 L 2.42 L (4.8-10.8) K/ul RBC 2.69 L 2.29 L (4.20-5.40) M/uL Hgb 8.1 L 6.9 L* (12.0-16.0) g/dl Hct 25.4 L 21.7 L (37.0-47.0) % MCHC 31.9 L 31.8 L (32.0-36.0) g/dL RDW Std Deviation 54.3 H 55.8 H (36.4-46.3) fL RDW Coeff of Bertha 16.2 H 16.5 H (11.5-14.5) % Plt Count 118 L 94 L (130-400) K/uL MPV 9.2 L (9.4-12.4) fL Lymph # (Auto) 0.70 L 0.49 L (1.20-3.40) K/uL Potassium 3.4 L (3.5-5.1) mmol/L Chloride 108 H 111 H (98-107) mmol/L Anion Gap 1 L (3-11) Glucose 108 H 103 H (70-99(Fasting)) mg/dl Calcium 8.3 L (8.6-10.3) mg/dl Urine Appearance Turbid A (Clear) Urine Protein 3+ H (Negative) Urine Blood 3+ H (Negative) Ur Leukocyte Esterase 1+ H (Negative) Urine RBC >20 H (0-2) /hpf Urine WBC >50 H (0-5) /hpf Crossmatch See Detail 05/10/24 Range/Units 03:34 WBC 2.48 L (4.8-10.8) K/ul RBC 2.56 L (4.20-5.40) M/uL Hgb 7.6 L (12.0-16.0) g/dl Hct 23.5 L (37.0-47.0) % MCHC (32.0-36.0) g/dL RDW Std Deviation 52.8 H (36.4-46.3) fL RDW Coeff of Bertha 16.3 H (11.5-14.5) % Plt Count 99 L (130-400) K/uL MPV (9.4-12.4) fL Lymph # (Auto) 0.69 L (1.20-3.40) K/uL Potassium (3.5-5.1) mmol/L Chloride 112 H (98-107) mmol/L Anion Gap 0 L (3-11) Glucose 104 H (70-99(Fasting)) mg/dl Calcium 8.0 L (8.6-10.3) mg/dl Urine Appearance (Clear) Urine Protein (Negative) Urine Blood (Negative) Ur Leukocyte Esterase (Negative) Urine RBC (0-2) /hpf Urine WBC (0-5) /hpf Crossmatch Diagnostic Findings Abdomen/Pelvis CT 05/09/24 11:[address] WITHOUT CONTRAST CT DOSE: 475.57 mGy.cm HISTORY: hematuria TECHNIQUE: Multiaxial CT images of the abdomen and pelvis were performed without contrast. A dose lowering technique was utilized adhering to the principles of ALARA. COMPARISON STUDY: 03/26/2024 FINDINGS: ABDOMEN: There is stable moderate splenomegaly. Gallbladder is surgically absent. There is a stable small oblong increased density finding adjacent to the inferior aspect of the right hepatic lobe. Otherwise the liver, spleen, pancreas, and adrenal glands have an unremarkable non-IV contrasted appearance. Right ureteral stent is well positioned. Stable atrophy of the right kidney. There are multiple small bilateral renal calculi. There is no hydronephrosis bilaterally. No ureteral calculi seen. No abdominal aortic aneurysm. Pelvis: Stable left ventral hernia repair with mesh. Stable partial colectomy and left lower quadrant ostomy. Urinary bladder is decompressed. Uterus and adne xa are grossly unremarkable. No bowel inflammation or obstruction seen. No free fluid, free air, or abscess. No enlarged adenopathy. Osseous structures: There is osteopenia. No acute osseous findings. IMPRESSION: 1. Multiple small bilateral renal calculi are grossly stable. No ureteral calculi or hydronephrosis seen. Right ureteral stent is well-positioned. 2. No acute findings seen. 3. Other stable findings as described. ACT 112: Negative or not required by law. The above report was generated using voice recognition software. It may contain grammatical, syntax or spelling errors. Electronically signed by: Willem Parrish M.D. 05/09/2024 12:28 PM Chest X-Ray 05/09/24 13:33 EXAM: Radiograph of the Chest 1 View INDICATION: Preoperative exam TECHNIQUE: Frontal view of the chest. COMPARISON: 03/12/[address] chest 02/07/2024 FINDINGS: Lungs and pleural spaces: Stable symmetrical air trapping. Stable interstitial and right apical scarring. Stable 1.0 x 0.7 cm left upper lobe nodule. No pleural effusion or pneumothorax. Stable groundglass density surrounding left lower lobe surgical clips. Heart: Shape and configuration within normal limits allowing for technique. Mediastinum: Normal contour. Bones/joints: No fracture, erosion or dislocation. Soft tissues: No abnormality noted. No radiopaque foreign body noted. Upper abdomen: No abnormality noted. IMPRESSION: 1. No interval change. No acute disease. 2. Stable left upper lobe nodule and groundglass density in the left lower lobe with associated surgical clips. ACT 112: N/A Electronically signed by Jacqui Milner 05-09-2024 2:10 PM PG Care Time/CCT Total # of Minutes Spent Total Time Spent with Patient: Total time spent is greater than 50% in coordination of care (as documented) at patient's floor/unit and/or counseling patient: C[place] [address] SUB INP/OBS CARE 3/50MIN Patient Type Established History Comprehensive Exam Comprehensive Medical Decision Making High Complexity Diagnoses Hematuria, gross R31.0 Acute blood loss anemia D62 Current chronic use of systemic steroids Z79.52 ILD (interstitial lung disease) J84.9 Colostomy status Z93.3 SLE (systemic lupus erythematosus) M32.9
--- NOTE | 2024-05-10 11:57 | Urology Progress Note ---
Date of Service May 10, 2024 Assessment & Plan (1) Hematuria, gross: (2) Acute blood loss anemia: Plan: 63 yo/F Admission and Anticipated Discharge Date Admission Date: May 09, 2024 Subjective Patient seen and examined at bedside this morning, in room. Patient reports ongoing hematuria for the past 19 days. She is intermittently passing clots in her urine. She has felt tired and weak and reports weight loss due to poor appetite. She reports occasional right flank pain, but also intermittent pain on the left side. No fever or chills. Review of Systems Constitutional: as per Subjective / HPI Genitourinary: as per Subjective / HPI Physical Exam Constitutional: well developed and well nourished; no acute distress Respiratory: normal respiratory effort; no respiratory distress and no labored breathing Gastrointestinal (Abdomen): Inspection/Auscultation: abdomen normal to inspection Musculoskeletal: Head/Neck/Chest: normocephalic Neurologic: moves all extremities and awake Psychiatric: Orientation: alert and oriented x 3 Results & Data Vital Signs (Past 12 Hours) Vital Signs Temp Pulse Pulse Resp BP BP Pulse Ox 05/10/24 07:20 36.5 C 72 16 104/63 98 05/10/24 07:15 05/10/24 05:46 36.4 C L 64 16 101/63 98 05/10/24 04:41 36.3 C L 69 16 87/42 L 98 05/10/24 02:39 36.5 C 75 16 99/62 L 97 05/10/24 01:55 36.4 C L 75 16 89/50 L 97 05/10/24 00:55 36.5 C 74 16 97/57 L 96 05/10/24 00:25 36.4 C 75 18 94/57 L 97 05/10/24 00:10 36.6 C 81 18 94/57 L 95 05/10/24 00:00 36.7 C 84 16 96/58 L 96 O2 Del Method 05/10/24 07:20 Room Air 05/10/24 07:15 Room Air 05/10/24 05:46 Room Air 05/10/24 04:41 Room Air 05/10/24 02:39 05/10/24 01:55 05/10/24 00:55 05/10/24 00:25 05/10/24 00:10 05/10/24 00:00 Room Air PG Care Time/CCT Total # of Minutes Spent Total Time Spent with Patient: Total time spent is greater than 50% in coordination of care (as documented) at patient's floor/unit and/or counseling patient: Coding Diagnoses Hematuria, gross R31.0 Acute blood loss anemia D62
--- NOTE | 2024-05-10 12:11 | Urology Consultation ---
Date of Consultation May 10, 2024 Assessment & Plan (1) Hematuria, gross: (2) Acute blood loss anemia: 63 yo/F with a complicated history including rectal/colon cancer, radiation cystitis, colostomy status, bilateral nephrolithiasis, and right ureteral stricture managed with chronic right ureteral stent (last exchanged 04/01/24) and previously a percutaneous nephrostomy tube removed on 04/16/24 admitted for hematuria and anemia. Patient afebrile, stable vitals Labs reviewedcreatinine 0.83, WBC 2.48, hemoglobin 7.6 (received 1 unit of PRBCs) Urine culture showed 3 types of organisms present, all high counts probable skin ramón CT reviewedmultiple small bilateral renal calculi, no ureteral calculi or hydronephrosis, right ureteral stent in good position Discussed hematuria may be secondary to ureteral stent as well as radiation cystitis No acute intervention planned at this time Continue to trend H&H and transfuse as necessary per hospital medicine Monitor voiding and bladder scan prn Can consider management of ureteral stricture/hydronephrosis with percutaneous nephrostomy tube Previous discussion regarding reconstructive surgery, which can be discussed as outpatient For now, continue with monitoring and supportive care will follow Supervising Physician Co-Signing Physician Notes Unfortunately, there is no easy solution for her issue. Her hematuria is likely combination of irritation from the stent and radiation cystitis. I previously recommended a nephrostomy tube for treatment of this which she initially had but then this was removed and the stent was replaced. I think she ultimately may require reconstruction of that ureter or removal of that kidney, but this can be addressed as an outpatient and would not be done this hospitalization. Ultimately, defer to Dr. Bonilla plan when he returns to the office next week. Recommend supportive measures until then. History of Present Illness Reason for Consultation: hematuria Requesting Physician: Dr. Ruano Attending Physician: Montrell Washington History of Present Illness This is a 63 year old female with a complicated history including rectal/colon cancer, radiation cystitis, colostomy status, bilateral nephrolithiasis, and right ureteral stricture managed with chronic right ureteral stent (last exchanged 04/01/24) and with percutaneous nephrostomy tube removed on 04/16/24. She presented to the ED on 05/09/24 for evaluation of persistent hematuria. On arrival to ED, she was afebrile, tachycardic, hypotensive. Lab work showed WBC 2.42, hemoglobin 6.9, potassium 3.4, creatinine 1.16. Urinalysis showed 3+ blood, 1+ LE, >20 RBC, >50 WBC, negative for bacteria. CT abdomen pelvis showed multiple small bilateral renal calculi, no ureteral calculi or hydronephrosis. Right ureteral stent is in good position. She was admitted to the hospital medicine service for hematuria and acute blood loss anemia. Patient received 1 unit of PRBC since arrival. Hemoglobin 7.6 today. Urology is consulted for hematuria. Patient seen and examined at bedside this morning, in room. Patient reports ongoing hematuria for the past ~19 days. She is intermittently passing clots in her urine. Voiding spontaneously and notes occasional difficulty when passing a clot. She has felt tired and weak and reports weight loss due to poor appetite. She reports occasional right flank pain, but also intermittent pain on the left side. No fever or chills. Allergies Allergy/AdvReac Type Severity Reaction Status Date / Time cefoxitin Allergy Unknown Unknown Verified 05/09/24 13:41 moxifloxacin [From Avelox] Allergy Unknown Rash Verified 05/09/24 13:41 Penicillins Allergy Unknown Hives Verified 05/09/24 13:41 petrolatum,white Allergy Unknown see notes: Verified 05/09/24 13:41 [From Petroleum Jelly] beat red eyes Sulfa (Sulfonamide Allergy Unknown Brain/Head Verified 05/09/24 13:41 Antibiotics) pressure vancomycin Allergy Unknown Unknown Verified 05/09/24 13:41 diphenhydramine Allergy Unknown Verified 05/09/24 19:07 acetaminophen [From Tylenol] AdvReac Unknown Fever/see Verified 05/09/24 13:41 notes amoxicillin AdvReac Unknown Verified 05/09/24 19:07 cefuroxime AdvReac Unknown Verified 05/09/24 19:08 mesalamine AdvReac Unknown Verified 05/09/24 19:08 paroxetine AdvReac Unknown Verified 05/09/24 19:09 sertraline AdvReac Unknown Verified 05/09/24 19:09 Home Medications Medication Instructions Recorded Confirmed Type calcium 600 mg (as 1 tab PO DAILY 10/26/23 05/09/24 History carbonate)-vitamin D3 10 mcg (400 unit) tablet (Calcium 600 + D(3)) carboxymethylcellulose sodium 1 % 1 drp ophthalmic (eye) DAILY PRN 10/26/23 05/09/24 History eye gel in a dropperette sjrogens syndrome (TheraTears) clonazepam 1 mg tablet 1 mg PO TID Anxiety/Insomnia 10/26/23 05/09/24 History docusate sodium 100 mg capsule 200 mg PO DAILY 10/26/23 05/09/24 History (Colace) levothyroxine 25 mcg tablet 25 mcg PO QAM 10/26/23 05/09/24 History naloxone 4 mg/actuation nasal spray 4 mg intranasal UD PRN Other 10/26/23 05/09/24 History omeprazole 20 mg capsule,delayed 20 mg PO QAM 10/26/23 05/09/24 History release prednisone 1 mg tablet 2 mg PO DAILY 10/26/23 05/09/24 History cyanocobalamin (vitamin B-12) 1,000 mcg PO DAILY #30 caps 11/18/23 05/09/24 Rx 1,000 mcg capsule oxycodone 5 mg tablet 5 mg PO Q6H PRN pain #10 tabs 04/01/24 05/09/24 Rx d-mannose 500 mg capsule (AZO 500 mg PO DAILY PRN Flare 04/13/24 05/09/24 History D-Mannose) carboxymethylcellulose 0 drp ophthalmic (eye) HS 05/09/24 05/09/24 History sod-hypromell 0.25 %-0.3 % eye liquid gel drops Patient History Medical History Lung nodules monitors History of recent hospitalization (03/2024) for kidney stones, [facility] tx to [facility] for nephrology tube placement. LIP (lymphoid interstitial pneumonitis) not that pt aware of in her hx - verifies admitted [facility] for sepsis jan 2024. ILD (interstitial lung disease) pt not sure , chest xrays show something of cloudy apperance. History of sepsis (01/2024) hospitalized [facility]. Lupus (systemic lupus erythematosus) Sjogren syndrome History of COVID-19 approx [address] History of postoperative nausea and vomiting with post op medication given on empty stomach History of chemotherapy hx complications with chemotherapy/including sepsis. History of anal cancer dx 2017 - multiple sx's and hx chemo. MALT lymphoma dx 2016 - sx right side face and hx radiation. Monitored. Sepsis Hydronephrosis Ureteral calculi kidney stones per pt Nephrolithiasis Raynaud's disease Medullary sponge kidney Panic disorder Hypothyroidism Surgical History History of surgery x4 related to dx MALT. 1) right side face, parotid gland 2) left side face 3) ganglion cyst 4) wrist and knee History of urologic surgery hx stents x3 (current stent on right side) History of urologic surgery (03/2024) nephrology tube placement History of left cataract surgery History of right cataract surgery History of intestinal surgery multiple: 1) resection/ileostomy 2) ilieostomy reversal 3) anal fissure 4) colostomy 5) colostomy prolpapse repair History of endoscopy History of colonoscopy History of oral surgery multiple/teeth removal. History of laparoscopic cholecystectomy approx 12/2023 or 01/2024 History of lithotripsy multiple H/O breast biopsy H/O dilation and curettage S/P tonsillectomy and adenoidectomy H/O wrist surgery H/O ventral hernia repair (2022) with mesh, left Family History Other Family history non-contributory Social History Smoking Status: Former smoker Tobacco Type: Cigarettes Second Hand Exposure: No; Do You Dip or Chew Tobacco: No; Hx Alcohol Use: No Hx Substance Use: No Preferred Language: Cymro Communication Ability: Effective Visual Impairment: No Limitations Roll Off Driver Required: No Beliefs That Will Affect Care: None Current Living Situation: Spouse Current Living Situation Comment: With Feels Safe at Home: Yes Assistive Devices: Other Review of Systems Review of Systems: All systems reviewed & are unremarkable except as noted in HPI & below Physical Exam Constitutional: well developed and well nourished; no acute distress Respiratory: normal respiratory effort; no respiratory distress and no labored breathing Gastrointestinal (Abdomen): +ostomy Musculoskeletal: Head/Neck/Chest: normocephalic Neurologic: moves all extremities and awake Psychiatric: Orientation: alert and oriented x 3 Results & Data Vital Signs (Past 12 Hours) Vital Signs Temp Pulse Pulse Resp BP BP Pulse Ox 05/10/24 07:20 36.5 C 72 16 104/63 98 05/10/24 07:15 05/10/24 05:46 36.4 C L 64 16 101/63 98 05/10/24 04:41 36.3 C L 69 16 87/42 L 98 05/10/24 02:39 36.5 C 75 16 99/62 L 97 05/10/24 01:55 36.4 C L 75 16 89/50 L 97 05/10/24 00:55 36.5 C 74 16 97/57 L 96 05/10/24 00:25 36.4 C 75 18 94/57 L 97 O2 Del Method 05/10/24 07:20 Room Air 05/10/24 07:15 Room Air 05/10/24 05:46 Room Air 05/10/24 04:41 Room Air 05/10/24 02:39 05/10/24 01:55 05/10/24 00:55 05/10/24 00:25 PG Care Time/CCT Total # of Minutes Spent Total Time Spent with Patient: Total time spent is greater than 50% in coordination of care (as documented) at patient's floor/unit and/or counseling patient: Coding Level of Care Code 79759 IN/OBS CONSULT LVL 4,60M Diagnoses Hematuria, gross R31.0 Acute blood loss anemia D62
[2024-05-10] MEDS ORDERED: SODIUM CHLORIDE 0.9% 100 ML IV PRN ×2 (13:01→16:11)
[2024-05-10] MEDS ORDERED: SODIUM CHLORIDE 0.9% 50 ML IV PRN ×2 (13:01→16:11)
[2024-05-10 16:05] LABS: Hematocrit (blood only) 21.2 % (37.0-47.0); Hemoglobin 6.8 g/dl (12.0-16.0)
[2024-05-10] MEDS ORDERED: HYDROCORTISONE SOD 25 MG in SYRINGE 0 ML IV SCH (17:00)
[2024-05-11 07:27] VITALS: RESP 16
[2024-05-11 07:30] LABS: BUN Creatinine Ratio 12.4 (10-20); Basophils # (auto) 0.02 K/uL (0.00-0.20); Basophils % (auto) 0.7 %; Calcium 8.3 mg/dl (8.6-10.3); Hematocrit (blood only) 27.8 % (37.0-47.0); Hemoglobin 9.1 g/dl (12.0-16.0); Immature Granulocytes # (auto) 0.03 K/uL (0.01-0.20); Immature Granulocytes % (auto) 1.1 %; Lymphocytes # (auto) 0.81 K/uL (1.20-3.40); Lymphocytes % (auto) 30.2 %; Mean Corpuscular Hemoglobin 30.4 pg (25.0-34.0); Mean Corpuscular Hgb Conc 32.7 g/dL (32.0-36.0); Mean Platelet Volume 9.7 fL (9.4-12.4); Monocytes # (auto) 0.18 K/uL (0.11-0.59); Monocytes % (auto) 6.7 %; Neutrophils # (auto) 1.64 K/uL (1.40-6.50); Neutrophils % (auto) 61.3 %; Platelet Count 102 K/uL (130-400); Potassium 3.7 mmol/L (3.5-5.1); RDW Coefficient of Variation 17.1 % (11.5-14.5); RDW Standard Deviation 55.8 fL (36.4-46.3); Red Blood Count 2.99 M/uL (4.20-5.40); White Blood Count 2.68 K/ul (4.8-10.8)
[2024-05-11] MEDS: predniSONE 1 MG TAB PO SCH (07:37)
--- NOTE | 2024-05-11 10:02 | Urology Progress Note ---
Date of Service May 11, 2024 Assessment & Plan (1) Hematuria, gross: (2) Acute blood loss anemia: Plan: 63 yo/F with a complicated history including rectal/colon cancer, radiation cystitis, colostomy status, bilateral nephrolithiasis, and right ureteral stric ture managed with chronic right ureteral stent (last exchanged 04/01/24) and previously a percutaneous nephrostomy tube removed on 04/16/24 admitted for hematuria and anemia. Patient afebrile, stable vitals Labs reviewedcreatinine 1.05, WBC 2.68, hemoglobin improved to 9.1 (has received 2 units of PRBCs since admission) Continue to trend H&H and transfuse as necessary per hospital medicine Urine culture showed 3 types of organisms present, all high counts probable skin ramón Hematuria may be multifactorial related to stent, cystitis, or other Subjectively her urine has improved today, Hgb improved She is voiding spontaneously Monitor voiding and bladder scan prn Patient made NPO this morning for possible cystoscopy evaluation this afternoon We discussed possibly holding off on intervention acutely if she is improving Will reassess later today will follow Admission and Anticipated Discharge Date Admission Date: May 09, 2024 Subjective Patient seen and examined at bedside this morning. She is generally feeling better today. She reports her urine has improved, more transparent. She received another unit of PRBCs yesterday, for total of 2 units since admission. Hemoglobin 9.1 this morning. Review of Systems Constitutional: as per Subjective / HPI Genitourinary: as per Subjective / HPI Physical Exam Constitutional: well developed and well nourished; no acute distress Respiratory: normal respiratory effort; no respiratory distress and no labored breathing Gastrointestinal (Abdomen): Inspection/Auscultation: abdomen normal to inspection Musculoskeletal: Head/Neck/Chest: normocephalic Neurologic: moves all extremities and awake Psychiatric: Orientation: alert and oriented x 3 Results & Data Vital Signs (Past 12 Hours) Vital Signs Temp Pulse Resp BP Pulse Ox O2 Del Method 05/11/24 07:30 Room Air 05/11/24 07:25 36.5 C 78 16 99/63 L 97 Room Air PG Care Time/CCT Total # of Minutes Spent Total Time Spent with Patient: Total time spent is greater than 50% in coordination of care (as documented) at patient's floor/unit and/or counseling patient: Coding Level of Care Code 76962 SUB INP/OBS CARE 2/35MIN Diagnoses Hematuria, gross R31.0 Acute blood loss anemia D62
[2024-05-11] MEDS: SODIUM CHLORIDE 0.9% 500 ML IV SCH (10:35)
[2024-05-11] MEDS ORDERED: SODIUM CHLORIDE 0.9% 100 ML IV PRN (15:45)
[2024-05-11] MEDS ORDERED: SODIUM CHLORIDE 0.9% 50 ML IV PRN (15:45)
[2024-05-11 16:16] LABS: Hematocrit (blood only) 27.8 % (37.0-47.0); Hemoglobin 9.1 g/dl (12.0-16.0)
--- NOTE | 2024-05-11 17:56 | Hospitalist Progress Note ---
Date of Service May 11, 2024 Assessment & Plan (1) Hematuria, gross: (2) Acute blood loss anemia: (3) Current chronic use of systemic steroids: (4) ILD (interstitial lung disease): (5) Colostomy status: (6) SLE (systemic lupus erythematosus): Plan Patient presented on 05/09 for ongoing hematuria x 18 days prior to admission. Continued monitoring until patient's hemoglobin remained stable for 24 hours, however she does express concern given her continued hematuria. #Hematuria Right ureter stent in place on admission A/P CT; no obstructive kidney stones Etiology for hematuria with several potential sources on admission ( right ureteral stent placement, cystitis, and malignancy, among other potential etiologies) Given patient's history of failed ureteral stents, and recent stent exchange on 04/01/2024, this is the leading DDx at this time Urology consult appreciated No planned urologic intervention on 05/10 or 05/11 Initially, there was some discussion about obtaining a cystoscopy on 05/11, however given patient's hemoglobin stabilized and she had a small breakfast this morning, it was felt that this could be done outpatient Will make patient n.p.o. at midnight on 05/12 and placed on IV fluids as precautionary measure However, urology reports that there will be no physician in-house on 05/12, and that cystoscopy would only be performed if emergency/significant clinical decline If clinical deterioration, would need to consider transfer for nephrostomy tube + stent removal Note: patient would like to avoid repeat nephrostomy tube if at all possible, as she had significant pain with her most recent nephrostomy tube (removed on 04/16) Hgb 9.1 s/p 2 units of PRBCs on 05/11; 1 additional unit on hold Despite continued hematuria, patient's hemoglobin does appear to have stabilized albeit temporarily Trend a.m. H&H UCx drawn on 05/09 without growth; however, patient was recently on course of Macrobid outpatient (Rx 04/26); lower suspicion for [facility]stitis [facility] consult appreciated for referral to reconstructive surgery with [facility] #Acute blood loss anemia Thought to be secondary to hematuria + pancytopenia Stable on 05/11 #Chronic steroid use Patient takes prednisone 2 mg p.o. 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 She is still passing blood clots, but reports significant decrease in her blood clots since being on IVF. Patient reports that she is having no pain with urination. No burning with urination, fever, chills, or setbacks overnight. No change in colostomy output. She does express some frustration, as she was informed that her earliest cystoscopy would be next week, and she is concerned about her hemoglobin downtrending if she were to be sent home. ROS: Patient endorses ongoing hematuria. Patient denies fever, chills, night sweats, dizziness, lightheadedness, falls, chest pain, chest palpitations, SOB, cough, burning with urination, dysuria, or changes in colostomy output. Note: Did discuss the evening of 05/10 with both patient and patient's family at bedside ( and daughter), that if patient's hemoglobin does not improve, she may require transfer to [facility] or [facility] for nephrostomy tube placement. Both patient and family are open/amenable to this if needed. Review of Systems Review of Systems: See HPI above Physical Exam Physical Exam: General: no acute distress; fatigue; non-toxic appearing; frail appearing; cooperative; SpO2 98% on RA HEENT: normocephalic, atraumatic; no scleral icterus; PERRLA; vision and hearing grossly intact Neck: supple; no lymphadenopathy; trachea midline Skin: Improvement in skin tone from the day prior; no pallor; warm, dry without signs of tenting; no cyanosis; no rashes, bruising, lesions, or erythema noted CV: chest wall NTP; RRR; S1/S2 normal; no murmurs/rubs/gallops; pulses intact and symmetric at radial, DP, and PT Lungs: no acute respiratory distress; symmetrical chest wall expansion; clear breath sounds across all lung sanchez w/o adventitious sounds; no wheezing ABD: Soft; colostomy in place without signs of erythema, infection, or drainage; left flank is TTP; no rashes or bruising noted on the left flank; BS present; no rebound/guarding; no distention : Positive right CVA tenderness; bright red blood in urine hat MSK: no tics or fasciculations; no edema noted in the LEs b/l, nonerythematous Neuro: A&Ox3; normal mood and affect; fluent speech; no focal deficits; sensation intact and symmetric in the lower extremities bilaterally Results & Data Results & Data Vital Signs (Past 12 Hours) Vital Signs Temp Pulse Resp BP Pulse Ox O2 Del Method 05/11/24 14:52 36.5 C 70 16 95/58 L 98 Room Air 05/11/24 07:30 Room Air 05/11/24: 36.5 C 78 16 99/63 L 97 Room Air Laboratory Results Abnormal lab results 05/09/24 05/11/24 05/11/24 Range/Units 21:25 06:34 15:54 WBC 2.68 L (4.8-10.8) K/ul RBC 2.99 L (4.20-5.40) M/uL Hgb 9.1 L 9.1 L (12.0-16.0) g/dl Hct 27.8 L 27.8 L (37.0-47.0) % RDW Std Deviation 55.8 H (36.4-46.3) fL RDW Coeff of Bertha 17.1 H (11.5-14.5) % Plt Count 102 L (130-400) K/uL Lymph # (Auto) 0.81 L (1.20-3.40) K/uL Chloride 111 H (98-107) mmol/L Anion Gap 2 L (3-11) Calcium 8.3 L (8.6-10.3) mg/dl Crossmatch See Detail PG Care Time/CCT Total # of Minutes Spent Total Time Spent with Patient: Total time spent is greater than 50% in coordination of care (as documented) at patient's floor/unit and/or counseling patient: C[place] [address] SUB INP/OBS CARE 3/50MIN Patient Type Established Medical Decision Making High Complexity Diagnoses Hematuria, gross R31.0 Acute blood loss anemia D62 Current chronic use of systemic steroids Z79.52 ILD (interstitial lung disease) J84.9 Colostomy status Z93.3 SLE (systemic lupus erythematosus) M32.9
[2024-05-11] MEDS: SODIUM CHLORIDE 0.9% 1,000 ML IV SCH (23:32)
[2024-05-12] MEDS: ACETAMINOPHEN 1,000 MG/100 ML VIAL IV STA (02:30)
--- NOTE | 2024-05-12 06:09 | Electrocardiogram Report ---
Test Reason : Blood Pressure : */* mmHG Vent. Rate : 90 BPM Atrial Rate : 90 BPM P-R Int : 162 ms QRS Dur : 92 ms QT Int : 358 ms P-R-T Axes : 79 -41 44 degrees QTcB Int : 437 ms Normal sinus rhythm Left axis deviation Incomplete right bundle branch block Possible Inferior infarct (cited on or before 12-Mar-2024) Abnormal ECG When compared with ECG of 12-Mar-2024 18:51, Criteria for Anterior infarct are no longer Present Questionable change in initial forces of Inferior leads Confirmed by Darinel Franco [id number]) on 05/12/2024 6:09:23 AM Referred By: REFERRED SELF Confirmed By: Darinel Franco
[2024-05-12 06:45] LABS: Basophils # (auto) 0.02 K/uL (0.00-0.20); Basophils % (auto) 0.8 %; Hematocrit (blood only) 26.8 % (37.0-47.0); Hemoglobin 8.9 g/dl (12.0-16.0); Immature Granulocytes # (auto) 0.02 K/uL (0.01-0.20); Immature Granulocytes % (auto) 0.8 %; Lymphocytes # (auto) 0.76 K/uL (1.20-3.40); Lymphocytes % (auto) 29.1 %; Mean Corpuscular Hemoglobin 30.7 pg (25.0-34.0); Mean Corpuscular Hgb Conc 33.2 g/dL (32.0-36.0); Mean Corpuscular Volume 92.4 fL (80.0-100.0); Mean Platelet Volume 9.6 fL (9.4-12.4); Monocytes # (auto) 0.28 K/uL (0.11-0.59); Monocytes % (auto) 10.7 %; Neutrophils # (auto) 1.53 K/uL (1.40-6.50); Neutrophils % (auto) 58.6 %; Platelet Count 89 K/uL (130-400); RDW Coefficient of Variation 16.5 % (11.5-14.5); RDW Standard Deviation 54.3 fL (36.4-46.3); White Blood Count 2.61 K/ul (4.8-10.8)
[2024-05-12 07:23] LABS: Calcium 8.3 mg/dl (8.6-10.3); Creatinine Clr Calc Pharmacy 68.7 ml/min; Potassium 3.6 mmol/L (3.5-5.1)
[2024-05-12] MEDS: valACYclovir HCL 500 MG TABLET PO SCH (10:25)
[2024-05-12] MEDS: OPTIRAY 320 100ml IV ONE (10:40)
--- NOTE | 2024-05-12 10:52 | Urology Progress Note ---
Date of Service May 12, 2024 Assessment & Plan (1) Hematuria, gross: (2) Acute blood loss anemia: Plan: 63 yo/F with a complicated history including rectal/colon cancer, radiation cystitis, colostomy status, bilateral nephrolithiasis, and right ureteral stric ture managed with chronic right ureteral stent (last exchanged 04/01/24) and previously a percutaneous nephrostomy tube removed on 04/16/24 admitted for hematuria and anemia. 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 She is clinically stable, hgb is improving, and repeat CT scan did not show any change in stent position. No obvious fistula between ureter and iliac artery, which can happen in history of chronic stent and radiation. Some likely blood product in collecting system and bladder. Suspect that she has stopped acutely bleeding and is now passing old blood product. was requesting transfer to [facility] to consider reconstructive surgery. Although this is not unreasonable, I explained that outside hospitals typically do not accept transfers for stable problems as they need to have bed availability for more acutely ill patients. Additionally, reconstructive surgeries are typically never done on an emergent basis. Other option would be transfer for neph put with antegrade removal of stent, as she did not have any issues with bleeding previously when a neph tube was in place. She is not keen on another neph tube as this time. Ultimately, plan will be to reevaluate in the morning. If hemoglobin remains stable, can consider discharge home with outpatient CBCs to ensure no further anemia and close follow up with Dr. Bonilla when he returns next week for definitive plan discussion. If not improving, can consider transfer but made it clear to patient that there would be no guarantee of acceptance given her clinical improvement. Subjective Patient seen and examined at bedside this morning. She is awake and sitting up in bed. Voiding spontaneously. Continues to have gross hematuria and passing clots. Notes some difficulty when passing clots. She thought urine was improving yesterday, but reports that she had not been voiding into hat. No fever or chills. Intermittent right flank discomfort. Has not eaten today. Review of Systems Constitutional: as per Subjective / HPI Genitourinary: as per Subjective / HPI Physical Exam Constitutional: well developed and well nourished; no acute distress Respiratory: normal respiratory effort; no respiratory distress and no labored breathing Gastrointestinal (Abdomen): Inspection/Auscultation: abdomen normal to inspection Musculoskeletal: Head/Neck/Chest: normocephalic Neurologic: moves all extremities and awake Psychiatric: Orientation: alert and oriented x 3 Genitourinary: Urine in hat is maroon with clots Results & Data Vital Signs (Past 12 Hours) Vital Signs Temp Pulse Resp BP Pulse Ox O2 Del Method 05/12/24 07:40 36.4 C L 71 16 95/54 L 97 Room Air PG Care Time/CCT Total # of Minutes Spent Total Time Spent with Patient: Total time spent is greater than 50% in coordination of care (as documented) at patient's floor/unit and/or counseling patient: Coding Level of Care Code 09682 SUB INP/OBS CARE 03/27MIN Diagnoses Hematuria, gross R31.0 Acute blood loss anemia D62
--- NOTE | 2024-05-12 11:21 | CT Scan Report ---
CT OF THE ABDOMEN AND PELVIS WITH AND WITHOUT CONTRAST HEMATURIA PROTOCOL CLINICAL HISTORY: Hematuria. COMPARISON STUDY: CT of the abdomen and pelvis March 12, 2024. CT of the abdomen and pelvis May 09, 2024. TECHNIQUE: Unenhanced and split bolus phase imaging of the abdomen and pelvis was performed. Intraven ous injection of 94 cc of Optiray 320 IV was uneventful. Automated exposure control was utilized for the study. A dose lowering technique was utilized adhering to the principles of ALARA. CT DOSE: 1016.49 mGy.cm FINDINGS: A 1.3 cm nodular density within the left lower lobe on image 1 of 349 is partially imaged. A 1.5 cm groundglass density with central lucency is noted. These are similar to CT of February 06 24. No pneumatosis, free air or portal venous gas is present. A right ureteral stent is in place. The re are no ureteral calculi. Bilateral renal calculi measure up to 8 mm. Right-sided urothelial thicke petey is again noted. There is no hydronephrosis. Filling defects within the bladder are present. Ther e is also a small filling defect within the right upper pole infundibulum which measure 6 mm. There a re several left renal cysts. Moderate right renal atrophy is again noted. Splenomegaly is unchanged. There is no biliary ductal dilatation status post cholecystectomy. A tiny density within the cholecys tectomy bed is unchanged. Adrenal glands and pancreas are unremarkable. A colostomy is noted. Wall th ickening of the base of the cecum was not evident on recent CT of May 09, 2024. The appendix is norm al. Trace fluid within the pelvis is noted. Is no lymphadenopathy. Bladder suboptimally assessed give n underdistention. IMPRESSION: 1. Right ureteral stent in place. No hydronephrosis. Persistent right-sided urothelial thickening. 2. No ureteral calculi. Bilateral nephrolithiasis. 3. Filling defects within the bladder and right upper pole infundibulum. These are nonspecific and ma y represent clot or debris. Although less likely, a neoplastic etiology cannot be completely excluded . 4. Wall thickening of the base of the cecum. This is likely due to underdistention as this finding wa s not evident on recent CT of May 09, 2024. 5. A few left lower lobe nodular densities which remain unchanged. These should be assessed on follow -up exams to ensure continued stability. ACT 112: Negative or not required by law. Electronically signed by: Nick Tena M.D. 05/12/2024 11:20 AM
[2024-05-12 15:02] LABS: Hematocrit (blood only) 28.8 % (37.0-47.0); Hemoglobin 9.6 g/dl (12.0-16.0)
[2024-05-12] MEDS: BENZOCAINE 20% (ORAJEL) 11.9 GM TUBE MT PRN (20:21)
--- NOTE | 2024-05-12 21:08 | Hospitalist Progress Note ---
Date of Service May 12, 2024 Assessment & Plan (1) Hematuria, gross: (2) Acute blood loss anemia: (3) Current chronic use of systemic steroids: (4) ILD (interstitial lung disease): (5) Colostomy status: (6) SLE (systemic lupus erythematosus): Plan Patient presented on 05/09 for ongoing hematuria x 18 days prior to admission. Continued monitoring until patient's hemoglobin remained stable for 24 hours, however she does express concern given her continued hematuria. #Hematuria Urology consulted and following Etiology of ongoing hematuria unclear but with multiple contributors including radiation cystitis exacerbated by ureteral stent and low platelets. Given recent stent exchange on 04/01, this is the leading DDx currently Acute blood loss anemia secondary to hematuria. Received total of 2 u pRBC Hemoglobin now stabilized since 05/11 despite ongoing hematuria. Given her hematuria is more maroon than bright red as well as a stabilized hemoglobin, it is likely old blood than active bleeding Repeat CT urogram without change in stent position, no obvious fistula, some likely blood in collecting system and bladder Ultimately decided to stay inpatient overnight, repeat labs in AM, Gilma and her will decide their level of comfort in going home or wanting to attempt transfer to [place]. If Gilma decides to go home, or if [facility] transfer is not accepted, then we will discharge her with plan for outpatient CBC on Friday and Friday with follow-up appointment with her urologist Dr. Bonilla on Friday #Acute blood loss anemia Secondary to ongoing hematuria + chronic pancytopenia Stable since 05/11 #Chronic steroid use Patient takes prednisone 2 mg p.o. daily for her SLE. Received stress dose hydrocortisone 25mg IV q12h on admission, now returned to home regimen BP stable Continue prednisone 2 mg daily #ILD Noted; CXR on arrival did not reveal any acute disease #Colostomy status H/o rectal carcinoma Daily colostomy care Dispo: Anticipate discharge 05/13. Patient will need close f/u with urology outpatient, as well as referral to urology at [facility] for urologic reconstructive consultation. Of note, CT noted a few left lower lobe nodular densities which remain unchanged. These should be assessed on follow-up exams to ensure continued stability. VTE PPx: Hold chemical DVT PPx in setting of gross hematuria + acute blood loss anemia; SCDs Updated at bedside Discussed case with urology team Spent extensive time counselling and providing emotional support Admission and Anticipated Discharge Date Admission Date: May 09, 2024 Subjective Patient seen and evaluated at bedside this morning. She reports continued hematuria with clots. She states that yesterday she thought her hematuria was improving, however now believes this was only because she was urinating in the toilet which was diluting it. Today she believes her hematuria is consistent with how it has been the past 2.5 weeks. She notes some intermittent right flank pain. She has not eaten yet as she is waiting for CT urogram result from urology. She is very anxious regarding the plan moving forward and expresses concerns of low hemoglobin levels at home. Returned to bedside in afternoon with urology [facility] to discuss the plan. Explained that since her hemoglobin is stable and her hematuria is more maroon than bright red as well as a stabilized hemoglobin, it is likely old blood than active bleeding. Additionally, urology would prefer for hematuria to be resolved both from a diagnostic perspective as well as safety perspective. Gilma still with concerns. Informed patient Dr. Brunner will see her after his clinic. Returned to bedside in evening with urology attending physician and at present bedside. Further discussed the plan and reiterated the points above. Discussed other options including attempt to transfer to [facility], though we explained our low suspicion they would accept given her hemodynamic stability. Reiterated that we understand this is frustrating and definitely does require further workup (though this may have to be done outpatient). Emotional support provided. Ultimately decided to stay inpatient overnight, repeat labs in AM, Gilma and her will decide their level of comfort in going home or wanting to attempt transfer to [place]. If Gilma decides to go home, or if [facility] transfer is not accepted, then we will discharge her with plan for outpatient CBC on Friday and Friday with follow-up appointment with her urologist Dr. Bonilla on Friday. Physical Exam Physical Exam: General: No acute distress, nondiaphoretic, frail appearing. Anxious and sometimes tearful. Cardiac: Regular rate and rhythm without murmurs gallops or rubs. Pulm: Clear to auscultation bilaterally without wheezes, rales or rhonchi. Normal respiratory effort. 97% on room air. Abdominal: Soft, nondistended. Colostomy in place without signs of infection. Bowel sounds present. : Gross hematuria (maroon) with clots. Right flank tenderness. Neuro: A&O x3. No focal neurological deficits. Results & Data Results & Data Vital Signs (Past 12 Hours) Vital Signs Temp Pulse Resp BP Pulse Ox O2 Del Method 05/12/24 19:57 98.8 F 88 16 117/69 97 Room Air 05/12/24 14:41 98.1 F 79 16 113/72 98 Room Air Laboratory Results Reviewed CBC with differential Reviewed BMP Diagnostic Findings Reviewed CT urogram Abdomen/Pelvis CT 05/12/24 09:39 CT OF THE ABDOMEN AND PELVIS WITH AND WITHOUT CONTRAST HEMATURIA PROTOCOL CLINICAL HISTORY: Hematuria. COMPARISON STUDY: CT of the abdomen and pelvis March 12, 2024. CT of the abdomen and pelvis May 09, 2024. TECHNIQUE: Unenhanced and split bolus phase imaging of the abdomen and pelvis was performed. Intravenous injection of 94 cc of Optiray 320 IV was uneventful. Automated exposure control was utilized for the study. A dose lowering technique was utilized adhering to the principles of ALARA. CT DOSE: 1016.49 mGy.cm FINDINGS: A 1.3 cm nodular density within the left lower lobe on image 1 of 349 is partially imaged. A 1.5 cm groundglass density with central lucency is noted. These are similar to CT of February 07, 2024. No pneumatosis, free air or portal venous gas is present. A right ureteral stent is in place. There are no ureteral calculi. Bilateral renal calculi measure up to 8 mm. Right-sided urothelial thickening is again noted. There is no hydronephrosis. Filling defects within the bladder are present. There is also a small filling defect within the right upper pole infundibulum which measure 6 mm. There are several left renal cysts. Moderate right renal atrophy is again noted. Splenomegaly is unchanged. There is no biliary ductal dilatation status post cholecystectomy. A tiny density within the cholecystectomy bed is unchanged. Adrenal glands and pancreas are unremarkable. A colostomy is noted. Wall thickening of the base of the cecum was not evident on recent CT of May 09, 2024. The appendix is normal. Trace fluid within the pelvis is noted. Is no lymphadenopathy. Bladder suboptimally assessed given underdistention. IMPRESSION: 1. Right ureteral stent in place. No hydronephrosis. Persistent right-sided urothelial thickening. 2. No ureteral calculi. Bilateral nephrolithiasis. 3. Filling defects within the bladder and right upper pole infundibulum. These are nonspecific and may represent clot or debris. Although less likely, a neoplastic etiology cannot be completely excluded. 4. Wall thickening of the base of the cecum. This is likely due to underdistention as this finding was not evident on recent CT of May 09, 2024. 5. A few left lower lobe nodular densities which remain unchanged. These should be assessed on follow-up exams to ensure continued stability. ACT 112: Negative or not required by law. Electronically signed by: Nick Tena M.D. 05/12/2024 11:20 AM PG Care Time/CCT Total # of Minutes Spent Total Time Spent with Patient: Total time spent is greater than 50% in coordination of care (as documented) at patient's floor/unit and/or counseling patient: Prolonged Care Time Prolonged Care Time: Yes Total Prolonged Care Time: 135 I spent a total of 135 minutes providing care to the patient. This includes 10 minutes of chart review (labs, images, previous provider notes), 10 minutes of documentation, 30 minutes of direct independent evaluation, 40 minutes of direct multidisciplinary care with urology PA-C including emotional support and discussion of treatment options, and 45 minutes of multidisciplinary care with urology attending physician including emotional support and discussion of treatment options. Coding Level of Care Code 51410 SUB INP/OBS CARE 3/50MIN Diagnoses Hematuria, gross R31.0 Acute blood loss anemia D62 Current chronic use of systemic steroids Z79.52 ILD (interstitial lung disease) J84.9 Colostomy status Z93.3 SLE (systemic lupus erythematosus) M32.9 Additional Codes Prolonged Care Time - Prolonged Care Time: Yes ([id number])
[2024-05-13] MEDS: oxyCODONE HCL IR 5 MG TAB (IMMEDIATE RELEASE) PO STA (00:25)
[2024-05-13 05:52] LABS: Hematocrit (blood only) 26.9 % (37.0-47.0); Hemoglobin 8.9 g/dl (12.0-16.0); Mean Corpuscular Hemoglobin 30.9 pg (25.0-34.0); Mean Corpuscular Hgb Conc 33.1 g/dL (32.0-36.0); Mean Corpuscular Volume 93.4 fL (80.0-100.0); Mean Platelet Volume 9.4 fL (9.4-12.4); Platelet Count 95 K/uL (130-400); RDW Coefficient of Variation 16.4 % (11.5-14.5); RDW Standard Deviation 55.6 fL (36.4-46.3); Red Blood Count 2.88 M/uL (4.20-5.40); White Blood Count 2.86 K/ul (4.8-10.8)
[2024-05-13] MEDS: CETIRIZINE HCL 10 MG TABLET PO ONE (06:37)
[2024-05-13] MEDS: HYDROCORTISONE SOD 25 MG in SYRINGE 0 ML IV STA ×2 (09:02→13:02)
[2024-05-13 15:24] VITALS: BP 100/65; PULSE 73; TEMP 97.9; O2SAT 97
--- NOTE | 2024-05-13 15:33 | Urology Progress Note ---
Date of Service May 13, 2024 Assessment & Plan (1) Hematuria, gross: (2) Acute blood loss anemia: Plan: 63 yo/F with a complicated history including rectal/colon cancer, radiation cystitis, colostomy status, bilateral nephrolithiasis, and right ureteral stric ture managed with chronic right ureteral stent (last exchanged 04/01/24) and previously a percutaneous nephrostomy tube removed on 04/16/24 admitted for hematuria and anemia. Patient afebrile, stable vitals Labs reviewedHgb 8.9, Plt 95 Hematuria may be multifactorial related to stent, cystitis, thrombocytopenia, other Urine culture on admission with probable skin ramón CT urogram 05/13 showed stent in position, no obvious fistula between ureter and iliac artery, some likely blood product in collecting system and bladder She is voiding spontaneously Discussed she may continue to have hematuria, likely passing old blood Patient and requested transfer to [facility], but was not accepted Will plan for discharge this afternoon as discussed previously with close outpatient urology follow-up and lab monitoring All questions answered will sign off, please contact our service with any additional questions or concerns Admission and Anticipated Discharge Date Admission Date: May 09, 2024 Subjective Patient seen and examined at bedside this afternoon. Voiding spontaneously, continues with hematuria. Reports lupus flare with joint discomfort and skin. She reports additional steroid dose and notes improvement today. Hgb 8.9 today. Review of Systems Constitutional: as per Subjective / HPI Genitourinary: as per Subjective / HPI Physical Exam Constitutional: well developed and well nourished; no acute distress Respiratory: normal respiratory effort; no respiratory distress and no labored breathing Gastrointestinal (Abdomen): Inspection/Auscultation: abdomen normal to inspection Musculoskeletal: Head/Neck/Chest: normocephalic Neurologic: moves all extremities and awake Psychiatric: Orientation: alert and oriented x 3 Results & Data Vital Signs (Past 12 Hours) Vital Signs Temp Pulse Resp BP Pulse Ox O2 Del Method 05/13/24 15:22 36.6 C 73 16 100/65 97 Room Air 05/13/24 07:44 36.8 C 80 16 93/55 L 96 Room Air PG Care Time/CCT Total # of Minutes Spent Total Time Spent with Patient: Total time spent is greater than 50% in coordination of care (as documented) at patient's floor/unit and/or counseling patient: Coding Level of Care Code 09493 SUB INP/OBS CARE 1/25MIN Diagnoses Hematuria, gross R31.0 Acute blood loss anemia D62
--- NOTE | 2024-05-13 16:03 | Discharge Summary ---
Discharge Summary Date of Service May 13, 2024 Principal Dx & Hospital Course #1 = Principal Diagnosis (1) Hematuria, gross: (2) Acute blood loss anemia: (3) Current chronic use of systemic steroids: (4) ILD (interstitial lung disease): (5) Colostomy status: (6) SLE (systemic lupus erythematosus): Plan Patient presented on 05/09 for ongoing hematuria x 18 days prior to admission. Etiology of ongoing hematuria unclear but with multiple contributors including radiation cystitis exacerbated by ureteral stent and low platelets. Given recent stent exchange on 04/01, this is the leading DDx currently. Acute blood loss anemia secondary to hematuria - received total of 2 u pRBC. Hemoglobin stabilized. CT urogram without change in stent position, no obvious fistula, some likely blood in collecting system and bladder. Patient and requested transfer to [facility], but was not accepted. Plan to have close follow-up with urology outpatient for further workup. #Hematuria Urology consulted and followed Hemoglobin now stabilized since 05/11 despite ongoing hematuria. Given her hematuria is more maroon than bright red as well as a stabilized hemoglobin, it is likely old blood than active bleeding Will check CBC on 05/14 and 05/17 to ensure hemoglobin is stable Close follow-up with Dr. Bonilla from urology as scheduled #Acute blood loss anemia Secondary to ongoing hematuria + chronic pancytopenia Stable since 05/11 #Chronic steroid use Patient takes prednisone 2 mg p.o. daily for her SLE. Received stress dose hydrocortisone 25mg IV q12h on admission, now returned to home regimen Continue prednisone 2 mg daily On day of discharge, patient requested IV steroids and oral steroid pack. 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 These should be assessed on follow-up exams to ensure continued stability. #Colostomy status H/o rectal carcinoma Daily colostomy care Dispo: Discharged home 05/13. Patient will need close f/u with urology outpatient, as well as referral to urology at [facility] for urologic reconstructive surgery consultation. VTE PPx: Held chemical DVT PPx in setting of gross hematuria + acute blood loss anemia; SCDs Notes For Next Care Provider Recommend close follow-up with urology outpatient for further workup / management. Of note, CT noted a few left lower lobe nodular densities which remain unchanged. These should be assessed on follow-up exams to ensure continued stability. Medication Changes From Visit Valtrex 500 mg BID through 05/18 for active cold sore Prednisone 10 mg daily x 2 days for Lupus flare Admission HPI Per Admitting Provider 63-year-old white female who states she has had gross hematuria for the past 2 weeks. She has called urology repeatedly but has not had any return calls. She finally gave up and came to the ED for further evaluation. Hemoglobin is 8.1. She apparently has previous radiation to the abdomen and multiple abdominal surgeries and has a left-sided colostomy that is currently functioning in place. She also has the presence of a right ureter stent. ER has contacted urology who anticipates the need for cystoscopy for further evaluation. She has signed a consent for blood transfusion if it becomes necessary. She is steroid- dependent and will be given intravenous hydrocortisone for now. Discharge Exam General: No acute distress, nondiaphoretic, frail appearing. Cardiac: Regular rate and rhythm without murmurs gallops or rubs. Pulm: Clear to auscultation bilaterally without wheezes, rales or rhonchi. Normal respiratory effort. 97% on room air. Abdominal: Soft, nondistended. Colostomy in place without signs of infection. Bowel sounds present. : Gross hematuria (maroon) with clots. Right flank tenderness. Neuro: A&O x3. No focal neurological deficits. Discharge Plan Discharge Items Patient Disposition: Home - Self-Care Reason For Visit: HEMATURIA Discharge Diagnosis: Hematuria Activity: Per Instructions section Non-emergency contact: Primary Care Provider and Urologist Call non-emergency contact if: you have any medication questions, your symptoms worsen and your pain is not controlled Follow-up/Referrals: Steve Bonilla DO [Physician] - (Follow-up as scheduled) Caitie Aden DO [Primary Care Provider] - (Follow-up in 1-2 weeks) Diet: Regular Ambulatory Orders: Complete Blood Count no Diff (Routine) Timeframe: 20240517 Location: Determined by Patient Ordered By: Lydia Reece Complete Blood Count no Diff (Routine) Timeframe: 20240514 Location: Determined by Patient Ordered By: Lydia E Gross Addtl Attending Provider Instructions: Gilma, You were admitted to the hospital due to persistent hematuria with associated acute blood loss anemia. You received 2 units of blood transfusions during your hospitalization. Although you are still having hematuria, your hemoglobin has stabilized. This, as well as your hematuria being maroon rather than bright red now, indicate this is likely old blood more than active bleeding. The cause of your ongoing hematuria is still unclear, but with multiple contributors including possible radiation cystitis exacerbated by the ureteral stent and chronically low platelets. We will monitor your hemoglobin outpatient until you can see your urologist, Dr. Bonilla, at your follow-up appointment. Additionally, you were started on Valtrex to treat your cold sore. You can continue this medication at home to complete your course of treatment. It has been sent to your [facility] pharmacy. Upon discharge from the hospital: * Get blood work done on Sunday 05/14 and Wednesday 05/17. This is to monitor your hemoglobin level. Your lab slips will be provided with your discharge papers. * Follow-up with urology as scheduled. * Continue Valtrex twice daily through 05/18. This is to complete treatment for your cold sore. You can get Orajel [id number] as a numbing aid if you would like. * Continue your other home medications as prescribed. * Follow-up with your PCP in 1-2 weeks. Please return to the hospital if you experience any of the following: chest pain, shortness of breath, passing out, confusion, or any other symptoms concerning for you. It was a pleasure taking care of you while you were in the hospital! Pending Studies at Discharge: No Stand-Alone Forms: My [facility] AdviceIQ, Smoking Cessation Medications and DC Order Prescriptions: New valacyclovir 500 mg Tablet 500 mg PO BID Qty: 11 0RF prednisone 10 mg tablet 10 mg PO DAILY Qty: 2 0RF Continued AZO D-Mannose 500 mg capsule 500 mg PO DAILY PRN (Reason: Flare) clonazepam 1 mg tablet 1 mg PO TID levothyroxine 25 mcg tablet 25 mcg PO QAM prednisone 1 mg tablet 2 mg PO DAILY Hold Instructions: Resume on 01/28/24. docusate sodium [Colace] 100 mg Capsule 200 mg PO DAILY omeprazole 20 mg capsule,delayed release(DR/EC) 20 mg PO QAM calcium carbonate-vitamin D3 [Calcium 600 + D(3)] 600 mg-10 mcg (400 unit) Tablet 1 tab PO DAILY Patient Comments: sometimes naloxone 4 mg/actuation spray,non-aerosol 4 mg INTRANASAL UD PRN (Reason: Other) Patient Comments: never used Rx Instructions: [place] 1 spray into one nostril as directed for overdose, respiratory supression/slow infrequent breathing. Repeat in 3 minutes in the other nostril if no response. Call 911. carboxymethylcellulose sodium [TheraTears] 1 % [place],Gel 1 drp OPHTHALMIC (EYE) DAILY PRN (Reason: sjrogens syndrome ) cyanocobalamin (vitamin B-12) 1,000 mcg capsule 1,000 mcg PO DAILY Qty: 30 0RF oxycodone 5 mg tablet 5 mg PO Q6H PRN (Reason: pain) Qty: 10 0RF carboxymethylcell-hypromellose 0.25-0.3 % Drops, Liquid Gel 0 drp OPHTHALMIC (EYE) HS Rx Instructions: Per patient she brought her own in with her and would like to use them. Original Directions: 1 drop at bedtime in both eyes. Discharge Orders: Discharge Order (Routine); Ordered 05/13/24 Ordered By: Lydia Reece Admission Data Admit Date/Time: 05/09/24 13:48 Attending Provider: Tj Young Admit Provider: Tj Young Primary Care Provider: Caitie Aden Other Providers: Lexx Oreilly; Spenser Brunner; Pablo Proctor Other Interventions: Discharge Summary Assessment (RN) Last Done: 05/13/24 16:36 Hospital Stay Data Consultations 05/09/24 13:01 Consult Urology Routine ED Decision to Admit Stat 05/10/24 12:55 [facility] radio dispatcher Routine Diagnostic Imagining Performed Abdomen/Pelvis CT 05/09/24 11:[address] WITHOUT CONTRAST CT DOSE: 475.57 mGy.cm HISTORY: hematuria TECHNIQUE: Multiaxial CT images of the abdomen and pelvis were performed without contrast. A dose lowering technique was utilized adhering to the principles of ALARA. COMPARISON STUDY: 03/26/2024 FINDINGS: ABDOMEN: There is stable moderate splenomegaly. Gallbladder is surgically absent. There is a stable small oblong increased density finding adjacent to the inferior aspect of the right hepatic lobe. Otherwise the liver, spleen, pancreas, and adrenal glands have an unremarkable non-IV contrasted appearance. Right ureteral stent is well positioned. Stable atrophy of the right kidney. There are multiple small bilateral renal calculi. There is no hydronephrosis bilaterally. No ureteral calculi seen. No abdominal aortic aneurysm. Pelvis: Stable left ventral hernia repair with mesh. Stable partial colectomy and left lower quadrant ostomy. Urinary bladder is decompressed. Uterus and adnexa are grossly unremarkable. No bowel inflammation or obstruction seen. No free fluid, free air, or abscess. No enlarged adenopathy. Osseous structures: There is osteopenia. No acute osseous findings. IMPRESSION: 1. Multiple small bilateral renal calculi are grossly stable. No ureteral calculi or hydronephrosis seen. Right ureteral stent is well-positioned. 2. No acute findings seen. 3. Other stable findings as described. ACT 112: Negative or not required by law. The above report was generated using voice recognition software. It may contain grammatical, syntax or spelling errors. Electronically signed by: Willem Parrish M.D. 05/09/2024 12:28 PM Chest X-Ray 05/09/24 13:33 EXAM: Radiograph of the Chest 1 View INDICATION: Preoperative exam TECHNIQUE: Frontal view of the chest. COMPARISON: 03/12/[address] chest 02/07/2024 FINDINGS: Lungs and pleural spaces: Stable symmetrical air trapping. Stable interstitial and right apical scarring. Stable 1.0 x 0.7 cm left upper lobe nodule. No pleural effusion or pneumothorax. Stable groundglass density surrounding left lower lobe surgical clips. Heart: Shape and configuration within normal limits allowing for technique. Mediastinum: Normal contour. Bones/joints: No fracture, erosion or dislocation. Soft tissues: No abnormality noted. No radiopaque foreign body noted. Upper abdomen: No abnormality noted. IMPRESSION: 1. No interval change. No acute disease. 2. Stable left upper lobe nodule and groundglass density in the left lower lobe with associated surgical clips. ACT 112: N/A Electronically signed by Jacqui Milner 05-09-2024 2:10 PM Abdomen/Pelvis CT 05/12/24 09:39 CT OF THE ABDOMEN AND PELVIS WITH AND WITHOUT CONTRAST HEMATURIA PROTOCOL CLINICAL HISTORY: Hematuria. COMPARISON STUDY: CT of the abdomen and pelvis March 12, 2024. CT of the abdomen and pelvis May 09, 2024. TECHNIQUE: Unenhanced and split bolus phase imaging of the abdomen and pelvis was performed. Intravenous injection of 94 cc of Optiray 320 IV was uneventful. Automated exposure control was utilized for the study. A dose lowering technique was utilized adhering to the principles of ALARA. CT DOSE: 1016.49 mGy.cm FINDINGS: A 1.3 cm nodular density within the left lower lobe on image 1 of 349 is partially imaged. A 1.5 cm groundglass density with central lucency is noted. These are similar to CT of February 07, 2024. No pneumatosis, free air or portal venous gas is present. A right ureteral stent is in place. There are no ureteral calculi. Bilateral renal calculi measure up to 8 mm. Right-sided urothelial thickening is again noted. There is no hydronephrosis. Filling defects within the bladder are present. There is also a small filling defect within the right upper pole infundibulum which measure 6 mm. There are several left renal cysts. Moderate right renal atrophy is again noted. Splenomegaly is unchanged. There is no biliary ductal dilatation status post cholecystectomy. A tiny density within the cholecystectomy bed is unchanged. Adrenal glands and pancreas are unremarkable. A colostomy is noted. Wall thickening of the base of the cecum was not evident on recent CT of May 09, 2024. The appendix is normal. Trace fluid within the pelvis is noted. Is no lymphadenopathy. Bladder suboptimally assessed given underdistention. IMPRESSION: 1. Right ureteral stent in place. No hydronephrosis. Persistent right-sided urothelial thickening. 2. No ureteral calculi. Bilateral nephrolithiasis. 3. Filling defects within the bladder and right upper pole infundibulum. These are nonspecific and may represent clot or debris. Although less likely, a neoplastic etiology cannot be completely excluded. 4. Wall thickening of the base of the cecum. This is likely due to underdistention as this finding was not evident on recent CT of May 09, 2024. 5. A few left lower lobe nodular densities which remain unchanged. These should be assessed on follow-up exams to ensure continued stability. ACT 112: Negative or not required by law. Electronically signed by: Nick Tena M.D. 05/12/2024 11:20 AM Pending Results Patient Have Any Pending Studies at Discharge: No Discharge Instructions Given to Patient (Per Discharging Provider) Gilma, You were admitted to the hospital due to persistent hematuria with associated acute blood loss anemia. You received 2 units of blood transfusions during your hospitalization. Although you are still having hematuria, your hemoglobin has stabilized. This, as well as your hematuria being maroon rather than bright red now, indicate this is likely old blood more than active bleeding. The cause of your ongoing hematuria is still unclear, but with multiple contributors including possible radiation cystitis exacerbated by the ureteral stent and chronically low platelets. We will monitor your hemoglobin outpatient until you can see your urologist, Dr. Bonilla, at your follow-up appointment. Additionally, you were started on Valtrex to treat your cold sore. You can continue this medication at home to complete your course of treatment. It has been sent to your [facility] pharmacy. Upon discharge from the hospital: * Get blood work done on Sunday 05/14 and Wednesday 05/17. This is to monitor your hemoglobin level. Your lab slips will be provided with your discharge papers. * Follow-up with urology as scheduled. * Continue Valtrex twice daily through 05/18. This is to complete treatment for your cold sore. You can get Orajel [id number] as a numbing aid if you would like. * Continue your other home medications as prescribed. * Follow-up with your PCP in 1-2 weeks. Please return to the hospital if you experience any of the following: chest pain, shortness of breath, passing out, confusion, or any other symptoms concerning for you. It was a pleasure taking care of you while you were in the hospital! Supervising Physician Co-Signing Physician Notes The patient was not seen by me. The chart was reviewed. Case discussed with ANGELIQUE Carrasco. Agree with assessment and plan Total Time Total Time Spent Total Time Spent (In Minutes): Greater than 30 minutes spent completing this discharge process including direct patient care, medication reconciliation, documentation, review of labs and images, and coordination of care. Coding Level of Care Code 69450 INP/OBS DISCH >30 MIN Diagnoses Hematuria, gross R31.0 Acute blood loss anemia D62 Current chronic use of systemic steroids Z79.52 ILD (interstitial lung disease) J84.9 Colostomy status Z93.3 SLE (systemic lupus erythematosus) M32.9
== END 2024-05-13 17:45 | disposition home or self-care (01) | DRG 696 ==
LOC: SUATTDRO → ED 11:34 → SUATTDRO 13:48 → EDINP 13:48 → 3W 15:55
DX: J84.9 Interstitial pulmonary disease, unspecified; Z87.448 Personal history of other diseases of urinary system; Z79.899 Other long term (current) drug therapy; E03.9 Hypothyroidism, unspecified; Z96.0 Presence of urogenital implants; Z85.048 Personal history of other malignant neoplasm of rectum, rectosigmoid junction, and anus; Z93.3 Colostomy status; Z88.1 Allergy status to other antibiotic agents; B00.9 Herpesviral infection, unspecified; Z88.2 Allergy status to sulfonamides; Z87.891 Personal history of nicotine dependence; I73.00 Raynaud's syndrome without gangrene; N20.0 Calculus of kidney; Z88.0 Allergy status to penicillin; R31.0 Gross hematuria; Z88.8 Allergy status to other drugs, medicaments and biological substances; Z88.6 Allergy status to analgesic agent; Z79.52 Long term (current) use of systemic steroids; M32.9 Systemic lupus erythematosus, unspecified; Z79.890 Hormone replacement therapy; D62 Acute posthemorrhagic anemia; D61.818 Other pancytopenia

== ENCOUNTER 2024-05-21 21:27 | Inpatient (IN) ==
[2024-05-21 22:07] LABS: Basophils # (auto) 0.02 K/uL (0.00-0.20); Basophils % (auto) 0.5 %; Hematocrit (blood only) 25.2 % (37.0-47.0); Immature Granulocytes # (auto) 0.04 K/uL (0.01-0.20); Immature Granulocytes % (auto) 0.9 %; Lymphocytes # (auto) 0.83 K/uL (1.20-3.40); Mean Corpuscular Hgb Conc 31.7 g/dL (32.0-36.0); Mean Corpuscular Volume 94.4 fL (80.0-100.0); Mean Platelet Volume 9.6 fL (9.4-12.4); Monocytes # (auto) 0.26 K/uL (0.11-0.59); Monocytes % (auto) 5.9 %; Neutrophils # (auto) 3.22 K/uL (1.40-6.50); Neutrophils % (auto) 73.7 %; Platelet Count 139 K/uL (130-400); RDW Coefficient of Variation 16.7 % (11.5-14.5); RDW Standard Deviation 56.4 fL (36.4-46.3); Red Blood Count 2.67 M/uL (4.20-5.40); White Blood Count 4.37 K/ul (4.8-10.8)
[2024-05-21] MEDS: OPTIRAY 320 100ml IV ONE (22:15)
[2024-05-21 22:23] LABS: Albumin Globulin Ratio 1.2 (0.9-2); Albumin Level 3.8 gm/dl (3.4-5.0); Appearance Urine Turbid (Clear); BUN Creatinine Ratio 19.1 (10-20); Bilirubin,Total 0.3 mg/dl (0.2-1.0); Calcium 8.9 mg/dl (8.6-10.3); Color Urine Red; Creatinine Clr Calc Pharmacy 59.7 ml/min; Globulin 3.2 gm/dl (2.5-4.0); Potassium 3.4 mmol/L (3.5-5.1)
[2024-05-21 22:25] LABS: Specific Gravity Urine > 1.030 (1.000-1.030)
[2024-05-21 22:26] LABS: Bilirubin Urine Negative (Negative); Glucose Urine UA Negative (Negative); Ketones Urine Negative (Negative)
[2024-05-21 22:27] LABS: Blood Urine 3+ (Negative); Protein Urine 3+ (Negative); Urobilinogen Urine Negative (Negative)
[2024-05-21 22:28] LABS: Leukocyte Esterase Urine 1+ (Negative); Nitrite Urine Negative (Negative)
[2024-05-21 22:36] LABS: Bacteria Urine None Seen (None Seen); RBC Urine >20 /hpf (0-2); WBC Urine >50 /hpf (0-5)
--- NOTE | 2024-05-21 23:09 | Emergency Department Note ---
Impression & Plan Acute blood loss anemia, Acute right flank pain, Complicated urinary tract infection, Hematuria, gross, Ureteral stent present ED Provider Note CHIEF COMPLAINT: Flank pain HISTORY OF PRESENTING ILLNESS: This 63-year-old female patient presents to the emergency department with her for evaluation of flank pain and hematuria. The patient states that she has had hematuria for the past month with intermittent clots. The patient states that she feels very fatigued, weak, and has shortness of breath with exertion today. She is also having pain with urination. The patient currently has a stent in her right kidney for history of kidney stones. The patient was seen last week for similar symptoms and required a blood transfusion. She had outpatient labs this morning with a hemoglobin of 8.1 per patient. She is not on any blood thinners. She denies any fevers. She denies any nausea or vomiting. I reviewed the patient's urology office visit note from 05/19/2024. Unfortunately, the patient's case is somewhat complex secondary to her history of GI malignancy, extensive pelvic surgery, recurrent stone disease, and development of significant obstructive issues secondary to the stricture versus external compression along with the recurrent hematuria. It was recommended the patient be referred to a tertiary center for reconstruction as well as further evaluation. The patient does not have an appt with tertiary urology set up yet. REVIEW OF SYSTEMS: See HPI for pertinent positives and pertinent negatives. ALLERGIES: See below MEDICATIONS: See below PAST MEDICAL HISTORY: See below PHYSICAL EXAM: VITALS: Vitals are noted on the nurse's note and reviewed by myself. GENERAL: The patient appears chronically ill and weak on exam. However, non toxic, in no acute distress, non-diaphoretic. SKIN: Capillary refill <2 sec. EYES: PERRLA. EOMI. Conjunctivae without injection, sclerae without icterus. NOSE: Patent without discharge. MOUTH: Mucous membranes moist. Uvula midline. Airway patent. NECK: Supple without nuchal rigidity. HEART: Regular rate and rhythm without murmurs gallops or rubs. LUNGS: Clear to auscultation bilaterally without wheezes, rales or rhonchi. No retractions or accessory muscle use. ABDOMEN: Positive bowel sounds x 4. Normal tympanic percussion. Soft, mildly tender to palpation over the right flank. Colostomy in place in the left lower abdomen without acute abnormalities. No obvious masses or hepatosplenomegaly. Maldonado sign negative. No specific CVA tenderness. No guarding, rigidity, or rebound tenderness. No focal RLQ or LLQ tenderness. MUSCULOSKELETAL: No gross musculoskeletal defects. NEURO: Patient was alert and oriented. No focal neurological deficits. DIFFERENTIAL DIAGNOSIS: Differential diagnosis includes hepatitis, pancreatitis, cholecystitis, cholelithiasis, appendicitis, kidney stone, pyelonephritis, UTI, gastritis, gastroenteritis, mesenteric adenitis, obstruction, constipation, hernia, abdominal abscess, perforation, diverticulitis, IBD, ischemic colitis, abdominal aortic aneurysm, , ectopic , ovarian cyst, ovarian torsion, acute salpingitis, or others. ED COURSE AND MEDICAL DECISION MAKING: HISTORY FROM INDEPENDENT HISTORIAN: Additional history obtained from the patient's . MEDICATIONS GIVEN: Dilaudid 0.25 mg IV, Zofran 4 mg IV, 500 mL normal saline solution bolus. Macrobid 100 mg p.o. MONITOR: Continuous adult care provider: Order was placed for continuous adult care provider. Patient was placed on the adult care provider and continuous pulse ox. Patient was noted to be in normal sinus rhythm at an initial rate of 80 bpm per my interpretation. EKG: EKG was interpreted by myself as normal sinus rhythm at 100 bpm with no acute ST or T wave changes. INTERPRETATION OF LABS: I interpreted the labs with full lab results as below in the lab section of this note. Laboratory results pertinent to the emergent complaint are discussed in the MDM section below. The patient was advised to follow up with their PCP and/or specialist(s) for further outpatient monitoring and management of any abnormal results. INTERPRETATION OF IMAGING: Imaging studies were interpreted by myself and read by radiology as per the imaging section of this note. The patient was advised to follow up with their PCP and/or specialist(s) for further outpatient management of any non-emergent abnormal findings. Chest x-ray showed emphysematous lungs and bilateral apical pleural thickening, but no evidence for pneumonia or other acute abnormalities. CT scan of the abdomen pelvis with IV contrast showed stable partially visualized 1.7 cm left lower lobe pulmonary nodule along the posterior left periapical border. Follow-up CT of the chest and PET/CT should be considered if not already performed. There is stable appropriate positioning of the double-J right ureteral stent. There is mild to moderate right renal atrophy and renal cortical scarring. There is persistent moderate urethral thickening noted in the renal pelvis and proximal ureter. Bilateral nephrolithiasis. EXTERNAL RECORDS REVIEWED: I reviewed the patient's previous urologic office visit note as summarized above. CONSULTATIONS: Davis Raines PA-C of urology. On-call hospitalist. MDM SUMMARY: I examined the patient. The patient has had ongoing problems with hematuria secondary to a history of ureteral stent and kidney stones with complications from her previous surgical history. The patient has recently required blood transfusions due to the hematuria and blood loss. The patient states that she feels like she is losing too much blood and has become short of breath with exertion, fatigued, and weak. She also feels like her right flank pain is getting worse. An IV lock was placed and labs were drawn. The patient was medicated and hydrated as above. White blood cell count low at 4.37. Hemoglobin low at 8.0. Platelet count normal at 139. Potassium slightly low at 3.4, chloride 108, and glucose 122, but CMP otherwise without concerning abnormalities. Urinalysis with 3+ protein, 3+ blood, 1+ leukocyte esterase, greater than 20 red blood cells, greater than 50 white blood cells, and 3-5 epithelial cells. This is concerning for a possible infection given the patient's stent. Urine culture is pending. Chest x-ray showed emphysematous lungs and bilateral apical pleural thickening, but no evidence for pneumonia or other acute abnormalities. CT scan of the abdomen pelvis with IV contrast showed stable partially visualized 1.7 cm left lower lobe pulmonary nodule along the posterior left periapical border. Follow- up CT of the chest and PET/CT should be considered if not already performed. There is stable appropriate positioning of the double-J right ureteral stent. There is mild to moderate right renal atrophy and renal cortical scarring. There is persistent moderate urethral thickening noted in the renal pelvis and proximal ureter. Bilateral nephrolithiasis. I spoke with Davis Raines PA-C of urology given her symptoms and history. He presented to the emergency department to evaluate the patient. Please refer to his dictation for further details. He recommended treatment of the urinalysis. Unfortunately, due to the patient's multiple medication allergies, antibiotic selection is limited. The patient states that she does the best on Macrobid whenever she has an infection. Therefore, the patient was given Macrobid 100 mg p.o. pending the urine culture. The patient has been having symptoms secondary to her hematuria and anemia. The patient and her do not feel that she can go home at this time due to her symptoms. While the patient does not qualify for blood transfusion at this time, I feel the patient would benefit from admission for observation to confirm that her hemoglobin does not continue to drop. I spoke with the on-call hospitalist who agreed to admit the patient for further evaluation and treatment. Please refer to their dictation for further details. The patient's care was transferred in stable condition. I had a meaningful discussion about this patient with Dr. Thornton who agrees with my assessment and the treatment plan. DIAGNOSIS: Symptomatic blood loss anemia Hematuria Right flank pain Ureteral stent in place UTI Past Med/Surg History Problem List (Updated 05/22/24 @ 20:03 by Iesha Ron PA-C) Ureteral stent present (Acute) Acute blood loss anemia (Acute) Hematuria, gross (Acute) Change or removal of drains Current chronic use of systemic steroids (Acute) Hydroureteronephrosis (Acute) Complicated urinary tract infection (Acute) Acute right flank pain (Acute) Sjogrens syndrome LIP (lymphoid interstitial pneumonitis) ILD (interstitial lung disease) Multiple idiopathic pulmonary cysts Enterococcal bacteremia Anxiety Colostomy status Pancytopenia Secondary thrombocytopenia SLE (systemic lupus erythematosus) Medical History Lung nodules monitors History of recent hospitalization (03/2024) for kidney stones, [facility] tx to [facility] for nephrology tube placement. LIP (lymphoid interstitial pneumonitis) not that pt aware of in her hx - verifies admitted [facility] for sepsis jan 2024. ILD (interstitial lung disease) pt not sure , chest xrays show something of cloudy apperance. History of sepsis (01/2024) hospitalized [facility]. Lupus (systemic lupus erythematosus) Sjogren syndrome History of COVID-19 approx [address] History of postoperative nausea and vomiting with post op medication given on empty stomach History of chemotherapy hx complications with chemotherapy/including sepsis. History of anal cancer dx 2017 - multiple sx's and hx chemo. MALT lymphoma dx 2016 - sx right side face and hx radiation. Monitored. Sepsis Hydronephrosis Ureteral calculi kidney stones per pt Nephrolithiasis Raynaud's disease Medullary sponge kidney Panic disorder Hypothyroidism Surgical History History of surgery x4 related to dx MALT. 1) right side face, parotid gland 2) left side face 3) ganglion cyst 4) wrist and knee History of urologic surgery hx stents x3 (current stent on right side) History of urologic surgery (03/2024) nephrology tube placement History of left cataract surgery History of right cataract surgery History of intestinal surgery multiple: 1) resection/ileostomy 2) ilieostomy reversal 3) anal fissure 4) colostomy 5) colostomy prolpapse repair History of endoscopy History of colonoscopy History of oral surgery multiple/teeth removal. History of laparoscopic cholecystectomy approx 12/2023 or 01/2024 History of lithotripsy multiple H/O breast biopsy H/O dilation and curettage S/P tonsillectomy and adenoidectomy H/O wrist surgery H/O ventral hernia repair (2022) with mesh, left Family History Other Family history non-contributory Social History Smoking Status: Former smoker Tobacco Type: Cigarettes Second Hand Exposure: No; Do You Dip or Chew Tobacco: No; Hx Alcohol Use: No Hx Substance Use: No Preferred Language: Armenian Communication Ability: Effective Visual Impairment: No Limitations Drive Away Driver Required: No Beliefs That Will Affect Care: None Current Living Situation: Spouse Current Living Situation Comment: With Feels Safe at Home: Yes Safety Concerns: Feels Safe At This Time Assistive Devices: Denture - Upper, Denture - Lower and Glasses Allergies Allergies Allergy/AdvReac Type Severity Reaction Status Date / Time moxifloxacin [From Avelox] Allergy Intermediate Rash Verified 05/22/24 00:01 Penicillins Allergy Intermediate Hives Verified 05/22/24 00:01 petrolatum,white Allergy Mild see notes: Verified 05/22/24 00:01 [From Petroleum Jelly] beat red eyes cefoxitin Allergy Unknown Unknown Verified 05/22/24 00:01 diphenhydramine Allergy Unknown Unknown Verified 05/22/24 00:01 vancomycin Allergy Unknown Unknown Verified 05/22/24 00:01 acetaminophen [From Tylenol] AdvReac Intermediate Fever/see Verified 05/22/24 00:01 notes Sulfa (Sulfonamide AdvReac Intermediate Brain/Head Verified 05/22/24 00:01 Antibiotics) pressure amoxicillin AdvReac Unknown Unknown Verified 05/22/24 00:01 cefuroxime AdvReac Unknown Unknown Verified 05/22/24 00:01 mesalamine AdvReac Unknown Unknown Verified 05/22/24 00:01 paroxetine AdvReac Unknown Unknown Verified 05/22/24 00:01 sertraline AdvReac Unknown Unknown Verified 05/22/24 00:01 Home Meds Home Medications Medication Instructions Recorded Confirmed calcium 600 mg (as 1 tab PO DAILY 10/26/23 05/22/24 carbonate)-vitamin D3 10 mcg (400 unit) tablet (Calcium 600 + D(3)) carboxymethylcellulose sodium 1 % 1 drp ophthalmic (eye) DAILY PRN 10/26/23 05/22/24 eye gel in a dropperette sjrogens syndrome (TheraTears) clonazepam 1 mg tablet 1 mg PO TID PRN Anxiety/Insomnia 10/26/23 05/22/24 docusate sodium 100 mg capsule 200 mg PO DAILY 10/26/23 05/22/24 (Colace) levothyroxine 25 mcg tablet 25 mcg PO QAM 10/26/23 05/22/24 naloxone 4 mg/actuation nasal spray 4 mg intranasal UD PRN Other 10/26/23 05/22/24 omeprazole 20 mg capsule,delayed 20 mg PO QAM 10/26/23 05/22/24 release prednisone 1 mg tablet 2 mg PO DAILY 10/26/23 05/22/24 d-mannose 500 mg capsule (AZO 500 mg PO DAILY PRN Flare 04/13/24 05/22/24 D-Mannose) carboxymethylcellulose 0 drp ophthalmic (eye) HS 05/09/24 05/22/24 sod-hypromell 0.25 %-0.3 % eye liquid gel drops Previous Rx's Medication Instructions Recorded cyanocobalamin (vitamin B-12) 1,000 mcg PO DAILY #30 caps 11/18/23 1,000 mcg capsule oxycodone 5 mg tablet 5 mg PO Q6H PRN pain #10 tabs 04/01/24 Results & Data (ED) Vital Signs Vital Signs - 24 hr 05/21/24 21:34 05/21/24 22:27 05/21/24 22:29 Temperature 36.6 C Temperature Source Temporal Artery Scan Pulse Rate 112 H 89 Pulse Rate [Apical] 88 Pulse Rate from SpO2 Sensor Pulse Rhythm [Apical] Regular Pulse Strength [Apical] Normal Respiratory Rate 18 18 Respiratory Effort / Characteristics Non-Labored Spontaneous Non-Labored Spontaneous Respiratory Depth Normal Normal Respiratory Pattern Regular Regular Blood Pressure 121/60 Blood Pressure [Right Arm] 116/62 Blood Pressure Mean 80 Blood Pressure Mean [Right Arm] 80 Blood Pressure Position Sitting Blood Pressure Position [Right Arm] Lying Pulse Oximetry 100 100 Oxygen Delivery Method Room Air Room Air Sepsis Recent Fever Within 48 Hours No Sepsis New/Unexplained Change in Mental Status N/A Sepsis Action Taken by Nursing No Action Required 05/21/24 23:06 05/21/24 23:39 05/22/24 00:00 Temperature Temperature Source Pulse Rate 83 84 83 Pulse Rate [Apical] Pulse Rate from SpO2 Sensor Pulse Rhythm [Apical] Pulse Strength [Apical] Respiratory Rate 17 13 12 Respiratory Effort / Characteristics Respiratory Depth Respiratory Pattern Blood Pressure 126/74 Blood Pressure [Right Arm] Blood Pressure Mean 88 Blood Pressure Mean [Right Arm] Blood Pressure Position Blood Pressure Position [Right Arm] Pulse Oximetry 97 97 96 Oxygen Delivery Method Room Air Room Air Room Air Sepsis Recent Fever Within 48 Hours Sepsis New/Unexplained Change in Mental Status Sepsis Action Taken by Nursing 05/22/24 01:00 05/22/24 01:00 05/22/24 02:00 Temperature Temperature Source Pulse Rate 80 73 89 Pulse Rate [Apical] Pulse Rate from SpO2 Sensor Pulse Rhythm [Apical] Pulse Strength [Apical] Respiratory Rate 18 14 14 Respiratory Effort / Characteristics Respiratory Depth Respiratory Pattern Blood Pressure 106/47 L 106/47 L 124/66 Blood Pressure [Right Arm] Blood Pressure Mean 66 53 85 Blood Pressure Mean [Right Arm] Blood Pressure Position Blood Pressure Position [Right Arm] Pulse Oximetry 97 97 100 Oxygen Delivery Method Room Air Room Air Room Air Sepsis Recent Fever Within 48 Hours Sepsis New/Unexplained Change in Mental Status Sepsis Action Taken by Nursing 05/22/24 02:45 05/22/24 03:00 05/22/24 03:00 Temperature Temperature Source Pulse Rate 80 82 Pulse Rate [Apical] 79 Pulse Rate from SpO2 Sensor 82 Pulse Rhythm [Apical] Pulse Strength [Apical] Respiratory Rate 16 20 Respiratory Effort / Characteristics Non-Labored Spontaneous Respiratory Depth Normal Respiratory Pattern Regular Blood Pressure 103/49 L Blood Pressure [Right Arm] 103/49 L Blood Pressure Mean 71 Blood Pressure Mean [Right Arm] 67 Blood Pressure Position Blood Pressure Position [Right Arm] Pulse Oximetry 94 96 Oxygen Delivery Method Room Air Room Air Sepsis Recent Fever Within 48 Hours Sepsis New/Unexplained Change in Mental Status Sepsis Action Taken by Nursing 05/22/24 03:24 05/22/24 04:09 05/22/24 05:00 Temperature Temperature Source Pulse Rate 77 75 76 Pulse Rate [Apical] Pulse Rate from SpO2 Sensor 77 72 71 Pulse Rhythm [Apical] Pulse Strength [Apical] Respiratory Rate 12 12 12 Respiratory Effort / Characteristics Respiratory Depth Respiratory Pattern Blood Pressure 99/53 L 89/47 L 84/44 L Blood Pressure [Right Arm] Blood Pressure Mean 68 61 57 Blood Pressure Mean [Right Arm] Blood Pressure Position Blood Pressure Position [Right Arm] Pulse Oximetry 95 97 100 Oxygen Delivery Method Room Air Room Air Room Air Sepsis Recent Fever Within 48 Hours Sepsis New/Unexplained Change in Mental Status Sepsis Action Taken by Nursing 05/22/24 06:03 05/22/24 06:33 05/22/24 07:13 Temperature Temperature Source Pulse Rate 78 83 76 Pulse Rate [Apical] Pulse Rate from SpO2 Sensor 77 85 Pulse Rhythm [Apical] Pulse Strength [Apical] Respiratory Rate 20 19 Respiratory Effort / Characteristics Respiratory Depth Respiratory Pattern Blood Pressure 92/53 L 84/63 L Blood Pressure [Right Arm] Blood Pressure Mean 66 70 Blood Pressure Mean [Right Arm] Blood Pressure Position Blood Pressure Position [Right Arm] Pulse Oximetry 98 100 Oxygen Delivery Method Room Air Room Air Sepsis Recent Fever Within 48 Hours Sepsis New/Unexplained Change in Mental Status Sepsis Action Taken by Nursing 05/22/24 09:09 Temperature Temperature Source Pulse Rate 75 Pulse Rate [Apical] Pulse Rate from SpO2 Sensor Pulse Rhythm [Apical] Pulse Strength [Apical] Respiratory Rate 18 Respiratory Effort / Characteristics Respiratory Depth Respiratory Pattern Blood Pressure 96/51 L Blood Pressure [Right Arm] Blood Pressure Mean 66 Blood Pressure Mean [Right Arm] Blood Pressure Position Blood Pressure Position [Right Arm] Pulse Oximetry 98 Oxygen Delivery Method Room Air Sepsis Recent Fever Within 48 Hours Sepsis New/Unexplained Change in Mental Status Sepsis Action Taken by Nursing Laboratory Data 05/22/24 18:17 05/22/24 08:27 Lab Results 05/21/24 05/21/24 05/22/24 Range/Units 21:44 22:00 08:27 WBC 4.37 L 2.80 L (4.8-10.8) K/ul RBC 2.67 L 2.12 L (4.20-5.40) M/uL Hgb 8.0 L 6.4 L* (12.0-16.0) g/dl Hct 25.2 L 20.2 L* (37.0-47.0) % MCV 94.4 95.3 (80.0-100.0) fL MCH 30.0 30.2 (25.0-34.0) pg MCHC 31.7 L 31.7 L (32.0-36.0) g/dL RDW Std Deviation 56.4 H 58.6 H (36.4-46.3) fL RDW Coeff of Bertha 16.7 H 16.8 H (11.5-14.5) % Plt Count 139 101 L (130-400) K/uL MPV 9.6 10.3 (9.4-12.4) fL Immature Gran % (Auto) 0.9 1.1 % Neut % (Auto) 73.7 68.2 % Lymph % (Auto) 19.0 21.4 % Menard % (Auto) 5.9 8.9 % Eos % (Auto) 0.0 0.0 % Baso % (Auto) 0.5 0.4 % Neut # (Auto) 3.22 1.91 (1.40-6.50) K/uL Lymph # (Auto) 0.83 L 0.60 L (1.20-3.40) K/uL Menard # (Auto) 0.26 0.25 (0.11-0.59) K/uL Eos # (Auto) 0.00 0.00 (0.00-0.50) K/uL Baso # (Auto) 0.02 0.01 (0.00-0.20) K/uL Immature Gran # (Auto) 0.04 0.03 (0.01-0.20) K/uL Polychromasia 1+ Tear Drop Cells 2+ Sodium 136 139 (136-145) mmol/L Potassium 3.4 L 3.7 (3.5-5.1) mmol/L Chloride 108 H 111 H (98-107) mmol/L Carbon Dioxide 25 25 (21-32) mmol/L Anion Gap 3 3 (3-11) BUN 18 14 (6-23) mg/dl Creatinine 0.94 0.83 (0.6-1.2) mg/dl Est Cr Clr Drug Dosing 59.7 67.6 ml/min eGFR 68.61 79.66 BUN/Creatinine Ratio 19.1 16.9 (10-20) Glucose 122 H 105 H (70-99(Fasting)) mg/dl Calcium 8.9 8.2 L (8.6-10.3) mg/dl Total Bilirubin 0.3 (0.2-1.0) mg/dl AST 16 (13-39) U/L ALT 11 (7-52) U/L Alkaline Phosphatase 58 (34-104) U/L Total Protein 7.0 (6.0-8.3) gm/dl Albumin 3.8 (3.4-5.0) gm/dl Globulin 3.2 (2.5-4.0) gm/dl Albumin/Globulin Ratio 1.2 (0.9-2) Urine Color Red Urine Appearance Turbid A (Clear) Urine pH 7.0 (4.5-7.5) Ur Specific [place]on > 1.030 H (1.000-1.030) Urine Protein 3+ H (Negative) Urine Glucose (UA) Negative (Negative) Urine Ketones Negative (Negative) Urine Blood 3+ H (Negative) Urine Nitrite Negative (Negative) Urine Bilirubin Negative (Negative) Urine Urobilinogen Negative (Negative) Ur Leukocyte Esterase 1+ H (Negative) Urine RBC >20 H (0-2) /hpf Urine WBC >50 H (0-5) /hpf Ur Epithelial Cells 3-5 H (0-2) /hpf Urine Bacteria None Seen (None Seen) Blood Type O Positive Antibody Screen NEGATIVE Crossmatch See Detail Administered Medications Docusate Sodium (Docusate Sodium 100 Mg Cap) 200 mg PO DAILY [facility] Stop: 06/21/24 08:59 Last Admin: 05/22/24 09:14 Dose: Not Given Documented By: Hydromorphone HCl (Hydromorphone Inj 0.5 Mg/0.5 Ml Syr) 0.5 mg IV Q3H PRN PRN Reason: Pain (6,7,8,9,10) Stop: 06/05/24 03:25 Last Admin: 05/22/24 16:12 Dose: 0.5 mg Documented By: Admin: 05/22/24 09:31 Dose: 0.5 mg Documented By: Admin: 05/22/24 06:40 Dose: 0.5 mg Documented By: SAMMY Ceftriaxone Sodium (Rocephin) 1,000 mg in 50 mls @ 100 mls/hr IV Q24H SHAYY Stop: 05/27/24 08:59 Last Infusion: 05/22/24 11:26 Dose: Infused Documented By: Admin: 05/22/24 10:56 Dose: 100 mls/hr Documented By: [id number] Levothyroxine Sodium (Levothyroxine Sodium 25 Mcg Tablet) 25 mcg PO DAILYBB SHAYY Stop: 06/21/24 06:29 Last Admin: 05/22/24 06:40 Dose: 25 mcg Documented By: SAMMY Prednisone (Prednisone 1 Mg Tab) 2 mg PO DAILY SHAYY Stop: 06/21/24 08:59 Last Admin: 05/22/24 09:14 Dose: Not Given Documented By: Discontinued Medications Diatrizoate Meglumine (Diatrizoate Meglumine 30% 100ml Vial) 100 ml INSTIL ONCE ONE Stop: 05/22/24 11:31 Last Admin: 05/22/24 12:00 Dose: 30 ml Documented By: [id number] Docusate Sodium (Docusate Sodium 100 Mg Cap) 100 mg PO NOW ONE Stop: 05/22/24 02:30 Last Admin: 05/22/24 02:53 Dose: 100 mg Documented By: ALEX Fentanyl Citrate (Fentanyl Citrate Pf 100 Mcg/2 Ml Vial) 25 mcg IV Q5M PRN PRN Reason: PACU Use Only-Pain Stop: 05/22/24 18:23 Last Admin: 05/22/24 12:40 Dose: 25 mcg Documented By: Admin: 05/22/24 12:35 Dose: 25 mcg Documented By: Admin: 05/22/24 12:30 Dose: 25 mcg Documented By: Admin: 05/22/24 12:20 Dose: 25 mcg Documented By: ALTAF Hydromorphone HCl (Hydromorphone Inj 0.5 Mg/0.5 Ml Syr) 0.25 mg IV NOW STA Stop: 05/21/24 23:29 Last Admin: 05/21/24 23:58 Dose: 0.25 mg Documented By: ALEX Hydromorphone HCl (Hydromorphone Inj 0.5 Mg/0.5 Ml Syr) 0.25 mg IV NOW STA Stop: 05/22/24 02:30 Last Admin: 05/22/24 02:53 Dose: 0.25 mg Documented By: ALEX Sodium Chloride (Nss) 500 mls @ 999 mls/hr IV .Q31M ONE Stop: 05/21/24 23:58 Last Infusion: 05/22/24 00:50 Dose: Infused Documented By: Admin: 05/21/24 23:57 Dose: 999 mls/hr Documented By: ALEX Ioversol (Optiray 320 100ml) 93 ml IV ONCE ONE Stop: 05/21/24 22:15 Last Admin: 05/21/24 22:15 Dose: 93 ml Documented By: IRENE Nitrofurantoin Macrocrystals (Nitrofurantoin Monohydrate 100 Mg Cap) 100 mg PO NOW STA Stop: 05/22/24 01:49 Last Admin: 05/22/24 02:00 Dose: 100 mg Documented By: ALEX Ondansetron HCl (Ondansetron Inj 2 Mg/Ml 2 Ml Vial) 4 mg IV NOW STA Stop: 05/21/24 23:29 Last Admin: 05/21/24 23:58 Dose: 4 mg Documented By: ALEX Prednisone (Prednisone 1 Mg Tab) 2 mg PO NOW STA Stop: 05/22/24 02:30 Last Admin: 05/22/24 02:53 Dose: 2 mg Documented By: ALEX Discharge Plan Visit Data Chief Complaint: Urinary Symptoms Stated Complaint: BLOOD IN URINE FOR A MONTH STRAIGHT ED Provider: Diane Thornton ED Midlevel Provider: Iesha Ron Discharge Problem: Acute blood loss anemia, Acute right flank pain, Complicated urinary tract infection, Hematuria, gross, Ureteral stent present Patient Disposition: Admitted As Inpatient Condition: Good Discharge Instructions Interventions: ED Discharge Assessment Last Done: 05/22/24 03:26
[2024-05-21] MEDS: SODIUM CHLORIDE 0.9% 500 ML IV ONE (23:57)
[2024-05-21] MEDS: ONDANSETRON INJ 2 MG/ML 2 ML VIAL IV STA (23:58)
[2024-05-21] MEDS: HYDROmorphone INJ 0.5 MG/0.5 ML SYR IV STA (23:58)
--- NOTE | 2024-05-22 00:05 | CT Scan Report ---
Exam(s): CT ABDOMEN + PELVIS With Contrast IV Amt: 93ml optiray 320 EXAM: CT Abdomen and Pelvis With Intravenous Contrast CLINICAL HISTORY: Reason for exam: hematuria, large clots. TECHNIQUE: Axial computed tomography images of the abdomen and pelvis with intravenous contrast. CTDI is 9.77 mGy and DLP is 474.68 mGy-cm. Automated exposure control was utilized for the study. A dose lowering technique was utilized adhering to the principles of ALARA. CONTRAST: Patient received 93ml optiray 320 of IV contrast COMPARISON: CT abdomen and pelvis: 05/12/2024 FINDINGS: Lung bases: There is a stable partially visualized 1.7 cm left lower lobe nodule noted along the posterior left pericardial border. Previous measurements: 1.7 cm. Follow-up indicated CT chest and follow-up PET CT should be considered. No consolidation. ABDOMEN: Liver: Unremarkable. No mass. Gallbladder and bile ducts: The gallbladder has been removed. No ductal dilation. Pancreas: Unremarkable. No mass. No ductal dilation. Spleen: Unremarkable. No splenomegaly. Adrenals: Unremarkable. No mass. Kidneys and ureters: No solid renal mass or hydronephrosis is noted. There are small simple left renal cyst and scattered retained bilateral renal calculi. Stomach and bowel: There is a left lower quadrant ostomy. The excluded rectosigmoid colon is unremarkable. No obstruction. No mucosal thickening. PELVIS: Appendix: No findings to suggest acute appendicitis. Bladder: Unremarkable. No mass. Reproductive: Unremarkable as visualized. ABDOMEN and PELVIS: Intraperitoneal space: Unremarkable. No free air. No significant fluid collection. Bones/joints: No acute fracture. No dislocation. Soft tissues: There are postsurgical changes and mesh in the anterior abdominal wall consistent with prior hernia repair. Vasculature: Unremarkable. No abdominal aortic aneurysm. Lymph nodes: Unremarkable. No enlarged lymph nodes. Tubes, lines and devices: There is stable appropriate positioning of the double-J right ureteral stent. There is mild to moderate right renal atrophy and renal cortical scarring. There is persistent moderate urothelial thickening noted in the renal pelvis and proximal ureter. IMPRESSION: 1. There is a stable partially visualized 1.7 cm left lower lobe pulmonary nodule noted along the posterior left pericardial border. Previous measurements: 1.7 cm. Follow-up indicated CT chest and follow-up PET CT should be considered. 2. There is stable appropriate positioning of the double-J right ureteral stent. There is mild to moderate right renal atrophy and renal cortical scarring. There is persistent moderate urothelial thickening noted in the renal pelvis and proximal ureter. 3. Bilateral nephrolithiasis. Electronically signed by: Misbah Ibrahim MD 05/22/24 00:04 AM
--- NOTE | 2024-05-22 01:55 | XRay Report ---
EXAM: XR chest 1V portable CLINICAL HISTORY: SOB. TECHNIQUE: An X-ray image of the chest is obtained in AP projection. COMPARISON: X-ray 05/09/24. FINDINGS: Pulmonary Parenchyma: Lungs are emphysematous. No evidence of consolidation, collapse, or focal opacities. No pulmonary nodules are identified. Bilateral apical pleural thickening. No evidence of pleural effusion. Heart and Mediastinum: Heart size and shape are normal. No mediastinal widening or masses. No hilar or mediastinal lymphadenopathy. Bony Thorax: The bony thorax appears intact without fractures or deformities. Soft Tissues: Soft tissues overlying the chest wall are unremarkable. IMPRESSION: 1. No significant changes. 2. Emphysematous lungs. 3. Bilateral apical pleural thickening. 4. No acute cardiopulmonary abnormalities are identified. Electronically signed by John James 05-22-2024 01:55 AM
[2024-05-22] MEDS: NITROFURANTOIN MONOHYDRATE 100 MG CAP PO STA (02:00)
--- NOTE | 2024-05-22 02:03 | Urology Consultation ---
Date of Consultation May 22, 2024 Assessment & Plan (1) Hematuria, gross: I discussed with the treating clinician emergency department the patient is being admitted on the hospitalist service. From a urologic perspective we recommend the following: Monitor hemoglobin hematocrit provide transfusion as needed Would recommend making the patient n.p.o. for the present timeshould be reevaluated by Dr. Bonilla in the morning 05/22/2024 to see if any cystoscopic intervention would be required At the present time the patient is able to void spontaneously. If she reaches a point when she cannot void/has urinary retention due to hematuria and blood clots a Wheeler catheter could be considered with manual irrigation. The urine culture has been sent as there is suggestion of a possible urinary tract infection. 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 Patient also has a history of bilateral nephrolithiasis and a right ureteral stricture for which she is had a chronic right ureteral stent placed. Her most recent stent was placed/exchanged on 04/01/2024. She has also had a percutaneous nephrostomy tube in the past and this has been removed on 04/16/2024. She was most recently admitted to [facility] from 05/09/2024 through 05/13/2024. She was seen in consultation by urology during this admission for gross hematuria. Patient was noted to be able to void spontaneously and no procedural intervention was required. Patient has since been seen as an outpatient by Dr. Bonilla of [facility]. During this visit Dr. Bonilla felt that any further manipulation of the patient's ureter was ill- advised due to concern for damage however he did feel that evacuation of clot/blood from the bladder may be required at some point in the future. He has also been considering referring patient to a tertiary care center for possible urologic reconstruction due to her ongoing bleeding. She presented to the emergency department today secondary to ongoing hematuria. Patient says that she feels lightheaded and dizzy. She does note that she also feels very weak and fatigued. She specifically notes that she has not had any falls or head injuries. She does note that she is voiding spontaneously but is passing blood clots as well as gross hematuria. She does that she does not take any blood thinners. She does note some right flank pain that that has been chronic. She also notes some dysuria. Since arrival to the hospital she has had labs and imaging which I independent reviewed. A CT scan of the abdomen pelvis showed the patient has an appropriate position right ureteral stent with persistent urothelial thickening. A chest x- ray showed no pneumonia. Labs included a CBC were white blood cell count was 4.3. Her platelet count was normal. Hemoglobin and hematocrit were 8.0 and 25.2. Chemistry profile showed sodium is 136 with a potassium of 3.4. BUN and creatinine were both within normal range. Urinalysis showed 1+ leukocyte Estrace and pyuria with greater than 50 white blood cells per high-power field. There were no nitrites or bacteria noted on this study. At the time my interview patient was resting comfortably in bed and she was in no distress Allergies Allergy/AdvReac Type Severity Reaction Status Date / Time moxifloxacin [From Avelox] Allergy Intermediate Rash Verified 05/22/24 00:01 Penicillins Allergy Intermediate Hives Verified 05/22/24 00:01 petrolatum,white Allergy Mild see notes: Verified 05/22/24 00:01 [From Petroleum Jelly] beat red eyes cefoxitin Allergy Unknown Unknown Verified 05/22/24 00:01 diphenhydramine Allergy Unknown Unknown Verified 05/22/24 00:01 vancomycin Allergy Unknown Unknown Verified 05/22/24 00:01 acetaminophen [From Tylenol] AdvReac Intermediate Fever/see Verified 05/22/24 00:01 notes Sulfa (Sulfonamide AdvReac Intermediate Brain/Head Verified 05/22/24 00:01 Antibiotics) pressure amoxicillin AdvReac Unknown Unknown Verified 05/22/24 00:01 cefuroxime AdvReac Unknown Unknown Verified 05/22/24 00:01 mesalamine AdvReac Unknown Unknown Verified 05/22/24 00:01 paroxetine AdvReac Unknown Unknown Verified 05/22/24 00:01 sertraline AdvReac Unknown Unknown Verified 05/22/24 00:01 Home Medications Medication Instructions Recorded Confirmed Type calcium 600 mg (as 1 tab PO DAILY 10/26/23 05/22/24 History carbonate)-vitamin D3 10 mcg (400 unit) tablet (Calcium 600 + D(3)) carboxymethylcellulose sodium 1 % 1 drp ophthalmic (eye) DAILY PRN 10/26/23 05/22/24 History eye gel in a dropperette sjrogens syndrome (TheraTears) clonazepam 1 mg tablet 1 mg PO TID PRN Anxiety/Insomnia 10/26/23 05/22/24 History docusate sodium 100 mg capsule 200 mg PO DAILY 10/26/23 05/22/24 History (Colace) levothyroxine 25 mcg tablet 25 mcg PO QAM 10/26/23 05/22/24 History naloxone 4 mg/actuation nasal spray 4 mg intranasal UD PRN Other 10/26/23 05/22/24 History omeprazole 20 mg capsule,delayed 20 mg PO QAM 10/26/23 05/22/24 History release prednisone 1 mg tablet 2 mg PO DAILY 10/26/23 05/22/24 History cyanocobalamin (vitamin B-12) 1,000 mcg PO DAILY #30 caps 11/18/23 05/22/24 Rx 1,000 mcg capsule oxycodone 5 mg tablet 5 mg PO Q6H PRN pain #10 tabs 04/01/24 05/22/24 Rx d-mannose 500 mg capsule (AZO 500 mg PO DAILY PRN Flare 04/13/24 05/22/24 History D-Mannose) carboxymethylcellulose 0 drp ophthalmic (eye) HS 05/09/24 05/22/24 History sod-hypromell 0.25 %-0.3 % eye liquid gel drops Patient History Medical History Lung nodules monitors History of recent hospitalization (03/2024) for kidney stones, [facility] tx to [facility] for nephrology tube placement. LIP (lymphoid interstitial pneumonitis) not that pt aware of in her hx - verifies admitted [facility] for sepsis jan 2024. ILD (interstitial lung disease) pt not sure , chest xrays show something of cloudy apperance. History of sepsis (01/2024) hospitalized [facility]. Lupus (systemic lupus erythematosus) Sjogren syndrome History of COVID-19 approx [address] History of postoperative nausea and vomiting with post op medication given on empty stomach History of chemotherapy hx complications with chemotherapy/including sepsis. History of anal cancer dx 2017 - multiple sx's and hx chemo. MALT lymphoma dx 2016 - sx right side face and hx radiation. Monitored. Sepsis Hydronephrosis Ureteral calculi kidney stones per pt Nephrolithiasis Raynaud's disease Medullary sponge kidney Panic disorder Hypothyroidism Surgical History History of surgery x4 related to dx MALT. 1) right side face, parotid gland 2) left side face 3) ganglion cyst 4) wrist and knee History of urologic surgery hx stents x3 (current stent on right side) History of urologic surgery (03/2024) nephrology tube placement History of left cataract surgery History of right cataract surgery History of intestinal surgery multiple: 1) resection/ileostomy 2) ilieostomy reversal 3) anal fissure 4) colostomy 5) colostomy prolpapse repair History of endoscopy History of colonoscopy History of oral surgery multiple/teeth removal. History of laparoscopic cholecystectomy approx 12/2023 or 01/2024 History of lithotripsy multiple H/O breast biopsy H/O dilation and curettage S/P tonsillectomy and adenoidectomy H/O wrist surgery H/O ventral hernia repair (2022) with mesh, left Family History Other Family history non-contributory Social History Smoking Status: Never smoker Tobacco Type: Cigarettes Second Hand Exposure: No; Do You Dip or Chew Tobacco: No; Hx Alcohol Use: No Hx Substance Use: No Preferred Language: Polish Communication Ability: Effective Visual Impairment: No Limitations Shingle Inspector Required: No Beliefs That Will Affect Care: None Current Living Situation: Spouse Current Living Situation Comment: With Feels Safe at Home: Yes Assistive Devices: Other Review of Systems Review of Systems: All systems reviewed & are unremarkable except as noted in HPI & below Physical Exam Constitutional: WD/WN, vitals as above Eyes: no conjunctival abnormality ENMT: Ears: no hearing impairment and no external ear abnormality Mouth: no oropharynx abnormality Neck: trachea midline Respiratory: normal respiratory effort; no respiratory distress and no labored breathing Cardiovascular: Rate/Rhythm: regular rate and regular rhythm Gastrointestinal (Abdomen): Abdomen is soft and nondistended. There is no tenderness to palpation. An ostomy is present. Musculoskeletal: No calf tenderness Skin: no rashes Neurologic: moves all extremities Psychiatric: A+Ox3, euthymic affect Genitourinary: Slight CVA tenderness with percussion on the right. No CVA tenderness with percussion on the left Results & Data Vital Signs (Past 12 Hours) Vital Signs Temp Pulse Pulse Resp BP BP Pulse Ox 05/22/24 01:00 73 14 106/47 L 97 05/22/24 01:00 80 18 106/47 L 97 05/22/24 00:00 83 12 126/74 96 05/21/24 23:39 84 13 97 05/21/24 23:06 83 17 97 05/21/24 22:29 89 05/21/24 22:27 88 18 116/62 100 05/21/24 21:34 36.6 C 112 H 18 121/60 100 O2 Del Method 05/22/24 01:00 Room Air 05/22/24 01:00 Room Air 05/22/24 00:00 Room Air 05/21/24 23:39 Room Air 05/21/24 23:06 Room Air 05/21/24 22:29 05/21/24 22:27 Room Air 05/21/24 21:34 Room Air PG Care Time/CCT Total # of Minutes Spent Total Time Spent with Patient: Total time spent is greater than 50% in coordination of care (as documented) at patient's floor/unit and/or counseling patient: Coding Level of Care Code 13202 OFFICE CONSULT LVL 5/55M Diagnoses Hematuria, gross R31.0
--- NOTE | 2024-05-22 02:37 | History & Physical Report ---
Date of Service May 22, 2024 Assessment & Plan (1) Acute blood loss anemia: (2) Hematuria, gross: (3) SLE (systemic lupus erythematosus): (4) Hypothyroidism: (5) Panic disorder: Plan 63-year-old female with history of colon cancer status post radiation with radiation cystitis, history of ureteral stricture with stent in place presenting with ongoing hematuria for the last 30 days. Patient reports progression of fatigue, lightheadedness and dizziness. No infectious symptoms such as fever, chills, rigors. #Acute blood loss anemiahemoglobin = 8, hematocrit = 25.2. Ongoing blood loss through hematuria Patient consented for transfusion No indication for transfusion at present. Will give blood for worsening symptomatic anemia, hemoglobin less than 7 or ongoing bleed #Hematuriasource of blood loss unclear Appreciate urology consultation Will keep patient n.p.o. for possible cystoscopy in the morning Dilaudid as needed for pain Zofran as needed for nausea #SLEchronic, stable Continue prednisone 2 mg p.o. daily #Hypothyroidism chronic, stable Continue Synthroid 25 mcg p.o. every morning #Panic disorderpatient clonazepam 0.5 mg p.o. 3 times daily Will give Ativan 1 mg IV every 8 hours as needed for now while patient n.p.o. History of Present Illness Chief Complaint: Hematuria Primary Care Provider: DO Gilma Richard Grzegorz is a 63-year-old female presenting with hematuria ongoing for at least the last month. Patient with history of colorectal cancer status post radiation resulting in radiation cystitis. History of bilateral nephrolithiasis with right ureteral stricture status post stent in place (last exchanged 04/01/2024). patient reports she has had ongoing hematuria for the last 30 days. She reports passing bright red blood with clots. She has occasional throbbing and pain in her bladder area as well as occasional bilateral flank pain. No reported fever or chills. Patient does report severe fatigue as well as dizziness and lightheadedness with near syncopal events. She presents with concern for ongoing blood loss and symptomatic anemia In the ER she is afebrile, hemodynamically stable ER course: Macrobid 100 mg p.o. Normal saline 500 mL Dilaudid 0.25 mg IV x 2 doses Zofran 4 mg IV Home medications prednisone and Colace ordered Allergies Allergy/AdvReac Type Severity Reaction Status Date / Time moxifloxacin [From Avelox] Allergy Intermediate Rash Verified 05/22/24 00:01 Penicillins Allergy Intermediate Hives Verified 05/22/24 00:01 petrolatum,white Allergy Mild see notes: Verified 05/22/24 00:01 [From Petroleum Jelly] beat red eyes cefoxitin Allergy Unknown Unknown Verified 05/22/24 00:01 diphenhydramine Allergy Unknown Unknown Verified 05/22/24 00:01 vancomycin Allergy Unknown Unknown Verified 05/22/24 00:01 acetaminophen [From Tylenol] AdvReac Intermediate Fever/see Verified 05/22/24 00:01 notes Sulfa (Sulfonamide AdvReac Intermediate Brain/Head Verified 05/22/24 00:01 Antibiotics) pressure amoxicillin AdvReac Unknown Unknown Verified 05/22/24 00:01 cefuroxime AdvReac Unknown Unknown Verified 05/22/24 00:01 mesalamine AdvReac Unknown Unknown Verified 05/22/24 00:01 paroxetine AdvReac Unknown Unknown Verified 05/22/24 00:01 sertraline AdvReac Unknown Unknown Verified 05/22/24 00:01 Home Medications Medication Instructions Recorded Confirmed Type calcium 600 mg (as 1 tab PO DAILY 10/26/23 05/22/24 History carbonate)-vitamin D3 10 mcg (400 unit) tablet (Calcium 600 + D(3)) carboxymethylcellulose sodium 1 % 1 drp ophthalmic (eye) DAILY PRN 10/26/23 05/22/24 History eye gel in a dropperette sjrogens syndrome (TheraTears) clonazepam 1 mg tablet 1 mg PO TID PRN Anxiety/Insomnia 10/26/23 05/22/24 History docusate sodium 100 mg capsule 200 mg PO DAILY 10/26/23 05/22/24 History (Colace) levothyroxine 25 mcg tablet 25 mcg PO QAM 10/26/23 05/22/24 History naloxone 4 mg/actuation nasal spray 4 mg intranasal UD PRN Other 10/26/23 05/22/24 History omeprazole 20 mg capsule,delayed 20 mg PO QAM 10/26/23 05/22/24 History release prednisone 1 mg tablet 2 mg PO DAILY 10/26/23 05/22/24 History cyanocobalamin (vitamin B-12) 1,000 mcg PO DAILY #30 caps 11/18/23 05/22/24 Rx 1,000 mcg capsule oxycodone 5 mg tablet 5 mg PO Q6H PRN pain #10 tabs 04/01/24 05/22/24 Rx d-mannose 500 mg capsule (AZO 500 mg PO DAILY PRN Flare 04/13/24 05/22/24 History D-Mannose) carboxymethylcellulose 0 drp ophthalmic (eye) HS 05/09/24 05/22/24 History sod-hypromell 0.25 %-0.3 % eye liquid gel drops Past Med/Surg History Problem List Acute blood loss anemia Hematuria, gross (Acute) Change or removal of drains Current chronic use of systemic steroids (Acute) Hydroureteronephrosis (Acute) Complicated urinary tract infection (Acute) Acute right flank pain (Acute) Sjogrens syndrome LIP (lymphoid interstitial pneumonitis) ILD (interstitial lung disease) Multiple idiopathic pulmonary cysts Enterococcal bacteremia Anxiety Colostomy status Pancytopenia Secondary thrombocytopenia SLE (systemic lupus erythematosus) Medical History Lung nodules monitors History of recent hospitalization (03/2024) for kidney stones, [facility] tx to nat[facility] for nephrology tube placement. LIP (lymphoid interstitial pneumonitis) not that pt aware of in her hx - verifies admitted [facility] for sepsis jan 2024. ILD (interstitial lung disease) pt not sure , chest xrays show something of cloudy apperance. History of sepsis (01/2024) hospitalized [facility]. Lupus (systemic lupus erythematosus) Sjogren syndrome History of COVID-19 approx [address] History of postoperative nausea and vomiting with post op medication given on empty stomach History of chemotherapy hx complications with chemotherapy/including sepsis. History of anal cancer dx 2017 - multiple sx's and hx chemo. MALT lymphoma dx 2016 - sx right side face and hx radiation. Monitored. Sepsis Hydronephrosis Ureteral calculi kidney stones per pt Nephrolithiasis Raynaud's disease Medullary sponge kidney Panic disorder Hypothyroidism Surgical History History of surgery x4 related to dx MALT. 1) right side face, parotid gland 2) left side face 3) ganglion cyst 4) wrist and knee History of urologic surgery hx stents x3 (current stent on right side) History of urologic surgery (03/2024) nephrology tube placement History of left cataract surgery History of right cataract surgery History of intestinal surgery multiple: 1) resection/ileostomy 2) ilieostomy reversal 3) anal fissure 4) colostomy 5) colostomy prolpapse repair History of endoscopy History of colonoscopy History of oral surgery multiple/teeth removal. History of laparoscopic cholecystectomy approx 12/2023 or 01/2024 History of lithotripsy multiple H/O breast biopsy H/O dilation and curettage S/P tonsillectomy and adenoidectomy H/O wrist surgery H/O ventral hernia repair (2022) with mesh, left Family History Other Family history non-contributory Social History Smoking Status: Never smoker Tobacco Type: Cigarettes Second Hand Exposure: No; Do You Dip or Chew Tobacco: No; Hx Alcohol Use: No Hx Substance Use: No Preferred Language: Yoruba Communication Ability: Effective Visual Impairment: No Limitations Surface Plate Finisher Required: No Beliefs That Will Affect Care: None Current Living Situation: Spouse Current Living Situation Comment: With Feels Safe at Home: Yes Assistive Devices: Other Review of Systems Review of Systems: All systems reviewed & are unremarkable except as noted in HPI & below Physical Exam Physical Exam: General: patient resting comfortably, NAD, non-toxic in appearance, AA&O x 4 Skin: warm, dry, intact, no rashes or lesions HEENT: NC/AT, PERRL, EOMI, anicteric sclera, conjunctiva without injection, external ear normal to inspection and nontender, nares patent, moist mucus membranes, dentition intact, no oropharyngeal lesions, neck supple, trachea midline, no LAD, no thyromegaly, no JVD Heart: +S1/S2, regular, no m/r/g Lungs: equal air entry bilaterally, no rales/rhonchi/wheezes Abd: +BS, soft, NT/ND, no masses/organomegaly/ascites, colostomy in place Ext: warm, 2+ pulses in UE/LE bilaterally, no clubbing/cyanosis or edema Neuro: nonfocal, patient AA&O x 4, speech intact, no facial droop, moving all extremities on command with equal strength 5/5 Results & Data Results & Data Vital Signs (Past 12 Hours) Vital Signs Temp Pulse Pulse Resp BP BP Pulse Ox 05/22/24 02:00 89 14 124/66 100 05/22/24 01:00 73 14 106/47 L 97 05/22/24 01:00 80 18 106/47 L 97 05/22/24 00:00 83 12 126/74 96 05/21/24 23:39 84 13 97 05/21/24 23:06 83 17 97 05/21/24 22:29 89 05/21/24 22:27 88 18 116/62 100 05/21/24 21:34 36.6 C 112 H 18 121/60 100 O2 Del Method 05/22/24 02:00 Room Air 05/22/24 01:00 Room Air 05/22/24 01:00 Room Air 05/22/24 00:00 Room Air 05/21/24 23:39 Room Air 05/21/24 23:06 Room Air 05/21/24 22:29 05/21/24 22:27 Room Air 05/21/24 21:34 Room Air Laboratory Results Laboratory Results WBC 4.37 K/ul (4.8-10.8) L 05/21/24 21:44 RBC 2.67 M/uL (4.20-5.40) L 05/21/24 21:44 Hgb 8.0 g/dl (12.0-16.0) L 05/21/24 21:44 Hct 25.2 % (37.0-47.0) L 05/21/24 21:44 MCV 94.4 fL (80.0-100.0) 05/21/24 21:44 MCH 30.0 pg (25.0-34.0) 05/21/24 21:44 MCHC 31.7 g/dL (32.0-36.0) L 05/21/24 21:44 RDW Std Deviation 56.4 fL (36.4-46.3) H 05/21/24 21:44 RDW Coeff of Bertha 16.7 % (11.5-14.5) H 05/21/24 21:44 Plt Count 139 K/uL (130-400) 05/21/24 21:44 MPV 9.6 fL (9.4-12.4) 05/21/24:44 Immature Gran % (Auto) 0.9 % 05/21/24:44 Neut % (Auto) 73.7 % 05/21/24: Lymph % (Auto) 19.0 % 05/21/24: Sunflower % (Auto) 5.9 % 05/21/24: Eos % (Auto) 0.0 % 05/21/24:44 Baso % (Auto) 0.5 % 05/21/24: Neut # (Auto) 3.22 K/uL (1.40-6.50) 05/21/24: Lymph # (Auto) 0.83 K/uL (1.20-3.40) L 05/21/24: Sunflower # (Auto) 0.26 K/uL (0.11-0.59) 05/21/24: Eos # (Auto) 0.00 K/uL (0.00-0.50) 05/21/24:44 Baso # (Auto) 0.02 K/uL (0.00-0.20) 05/21/24:44 Immature Gran # (Auto) 0.04 K/uL (0.01-0.20) 05/21/24:44 Sodium 136 mmol/L (136-145) 05/21/24: Potassium 3.4 mmol/L (3.5-5.1) L 05/21/24: Chloride 108 mmol/L (98-107) H 05/21/24:44 Carbon Dioxide 25 mmol/L (21-32) 05/21/24: Anion Gap 3 (3-11) 05/21/24: BUN 18 mg/dl (6-23) 05/21/24: Creatinine 0.94 mg/dl (0.6-1.2) 05/21/24: Est Cr Clr Drug Dosing 59.7 ml/min 05/21/24: eGFR 68.61 05/21/24: BUN/Creatinine Ratio 19.1 (10-20) 05/21/24: Glucose 122 mg/dl (70-99(Fasting)) H 05/21/24 21: Calcium 8.9 mg/dl (8.6-10.3) 05/21/24: Total Bilirubin 0.3 mg/dl (0.2-1.0) 05/21/24 21: AST 16 U/L (13-39) 05/21/24: ALT 11 U/L (7-52) 05/21/24: Alkaline Phosphatase 58 U/L (34-104) 05/21/24: Total Protein 7.0 gm/dl (6.0-8.3) 05/21/24: Albumin 3.8 gm/dl (3.4-5.0) 05/21/24: Globulin 3.2 gm/dl (2.5-4.0) 05/21/24: Albumin/Globulin Ratio 1.2 (0.9-2) 05/21/24: Urine Color Red 05/21/24: Urine Appearance Turbid (Clear) A 05/21/24: Urine pH 7.0 (4.5-7.5) 05/21/24: Ur Specific [place] > 1.030 (1.000-1.030) H 05/21/24: Urine Protein 3+ (Negative) H 05/21/24: Urine Glucose (UA) Negative (Negative) 05/21/24: Urine Ketones Negative (Negative) 05/21/24: Urine Blood 3+ (Negative) H 05/21/24: Urine Nitrite Negative (Negative) 05/21/24: Urine Bilirubin Negative (Negative) 05/21/24: Urine Urobilinogen Negative (Negative) 05/21/24: Ur Leukocyte Esterase 1+ (Negative) H 05/21/24: Urine RBC >20 /hpf (0-2) H 05/21/24:44 Urine WBC >50 /hpf (0-5) H 05/21/24:44 Ur Epithelial Cells 3-5 /hpf (0-2) H 05/21/24 21: Urine Bacteria None Seen (None Seen) 05/21/24 21:44 Blood Type O Positive 05/21/24 22:00 Antibody Screen NEGATIVE 05/21/24 22:00 Impressions Abdomen/Pelvis CT 05/21/24 21:55 Exam(s): CT ABDOMEN + PELVIS With Contrast IV Amt: 93ml optiray 320 EXAM: CT Abdomen and Pelvis With Intravenous Contrast CLINICAL HISTORY: Reason for exam: hematuria, large clots. TECHNIQUE: Axial computed tomography images of the abdomen and pelvis with intravenous contrast. CTDI is 9.77 mGy and DLP is 474.68 mGy-cm. Automated exposure control was utilized for the study. A dose lowering technique was utilized adhering to the principles of ALARA. CONTRAST: Patient received 93ml optiray 320 of IV contrast COMPARISON: CT abdomen and pelvis: 05/12/2024 FINDINGS: Lung bases: There is a stable partially visualized 1.7 cm left lower lobe nodule noted along the posterior left pericardial border. Previous measurements: 1.7 cm. Follow-up indicated CT chest and follow-up PET CT should be considered. No consolidation. ABDOMEN: Liver: Unremarkable. No mass. Gallbladder and bile ducts: The gallbladder has been removed. No ductal dilation. Pancreas: Unremarkable. No mass. No ductal dilation. Spleen: Unremarkable. No splenomegaly. Adrenals: Unremarkable. No mass. Kidneys and ureters: No solid renal mass or hydronephrosis is noted. There are small simple left renal cyst and scattered retained bilateral renal calculi. Stomach and bowel: There is a left lower quadrant ostomy. The excluded rectosigmoid colon is unremarkable. No obstruction. No mucosal thickening. PELVIS: Appendix: No findings to suggest acute appendicitis. Bladder: Unremarkable. No mass. Reproductive: Unremarkable as visualized. ABDOMEN and PELVIS: Intraperitoneal space: Unremarkable. No free air. No significant fluid collection. Bones/joints: No acute fracture. No dislocation. Soft tissues: There are postsurgical changes and mesh in the anterior abdominal wall consistent with prior hernia repair. Vasculature: Unremarkable. No abdominal aortic aneurysm. Lymph nodes: Unremarkable. No enlarged lymph nodes. Tubes, lines and devices: There is stable appropriate positioning of the double-J right ureteral stent. There is mild to moderate right renal atrophy and renal cortical scarring. There is persistent moderate urothelial thickening noted in the renal pelvis and proximal ureter. IMPRESSION: 1. There is a stable partially visualized 1.7 cm left lower lobe pulmonary nodule noted along the posterior left pericardial border. Previous measurements: 1.7 cm. Follow-up indicated CT chest and follow-up PET CT should be considered. 2. There is stable appropriate positioning of the double-J right ureteral stent. There is mild to moderate right renal atrophy and renal cortical scarring. There is persistent moderate urothelial thickening noted in the renal pelvis and proximal ureter. 3. Bilateral nephrolithiasis. Electronically signed by: Misbah Ibrahim MD 05/22/24 00:04 AM Chest X-Ray 05/21/24 23:34 EXAM: XR chest 1V portable CLINICAL HISTORY: SOB. TECHNIQUE: An X-ray image of the chest is obtained in AP projection. COMPARISON: X-ray 05/09/24. FINDINGS: Pulmonary Parenchyma: Lungs are emphysematous. No evidence of consolidation, collapse, or focal opacities. No pulmonary nodules are identified. Bilateral apical pleural thickening. No evidence of pleural effusion. Heart and Mediastinum: Heart size and shape are normal. No mediastinal widening or masses. No hilar or mediastinal lymphadenopathy. Bony Thorax: The bony thorax appears intact without fractures or deformities. Soft Tissues: Soft tissues overlying the chest wall are unremarkable. IMPRESSION: 1. No significant changes. 2. Emphysematous lungs. 3. Bilateral apical pleural thickening. 4. No acute cardiopulmonary abnormalities are identified. Electronically signed by John James 05-22-2024 01:55 AM PG Care Time/CCT Total # of Minutes Spent Total Time Spent with Patient: Total time spent is greater than 50% in coordination of care (as documented) at patient's floor/unit and/or counseling patient: Coding Level of Care Code 82025 INT INP/OBS CARE 3/75MIN Diagnoses Acute blood loss anemia D62 Hematuria, gross R31.0 SLE (systemic lupus erythematosus) M32.9 Hypothyroidism E03.9 Panic disorder F41.0
[2024-05-22] MEDS: DOCUSATE SODIUM 100 MG CAP PO ONE (02:53)
[2024-05-22] MEDS: predniSONE 1 MG TAB PO STA (02:53)
[2024-05-22] MEDS: HYDROmorphone INJ 0.5 MG/0.5 ML SYR IV STA (02:53)
[2024-05-22] MEDS ORDERED: LORazepam 2 MG/1 ML VIAL IV PRN (03:26)
[2024-05-22] MEDS ORDERED: ONDANSETRON INJ 2 MG/ML 2 ML VIAL IV PRN ×2 (03:26→10:23)
[2024-05-22] MEDS: LEVOTHYROXINE SODIUM 25 MCG TABLET PO SCH (06:40)
[2024-05-22] MEDS: HYDROmorphone INJ 0.5 MG/0.5 ML SYR IV PRN (06:40)
--- NOTE | 2024-05-22 07:57 | Electrocardiogram Report ---
Test Reason : Blood Pressure : */* mmHG Vent. Rate : 100 BPM Atrial Rate : 100 BPM P-R Int : 160 ms QRS Dur : 78 ms QT Int : 336 ms P-R-T Axes : 86 -54 77 degrees QTcB Int : 433 ms Normal sinus rhythm Left anterior fascicular block Abnormal ECG When compared with ECG of 09-May-2024 11:52, Incomplete right bundle branch block is no longer Present Criteria for Inferior infarct are no longer Present Confirmed by Shankar Anderson ([id number]) on 05/22/2024 7:57:10 AM Referred By: REFERRED SELF Confirmed By: Shankar Anderson
[2024-05-22 09:12] LABS: BUN Creatinine Ratio 16.9 (10-20); Calcium 8.2 mg/dl (8.6-10.3); Creatinine Clr Calc Pharmacy 67.6 ml/min; Potassium 3.7 mmol/L (3.5-5.1)
[2024-05-22] MEDS: DOCUSATE SODIUM 100 MG CAP PO SCH (09:14)
[2024-05-22] MEDS: predniSONE 1 MG TAB PO SCH (09:14)
--- NOTE | 2024-05-22 09:27 | Anesthesiology Consultation ---
Date of Service May 22, 2024 Assessment & Plan Chart Review Chart Review: Acceptable Risk for Surgery and Patient NOT seen in Pre Admission Testing Consults Requested none History Surgery Operation Date: 05/22/24 09:00 Proposed Procedures p Ureteral Stent Insertion/Removal - Steve Bonilla DO Height/Weight Height: 5 ft 11 in Weight: 60.9 kg Allergies Allergy/AdvReac Type Severity Reaction Status Date / Time moxifloxacin [From Avelox] Allergy Intermediate Rash Verified 05/22/24 00:01 Penicillins Allergy Intermediate Hives Verified 05/22/24 00:01 petrolatum,white Allergy Mild see notes: Verified 05/22/24 00:01 [From Petroleum Jelly] beat red eyes cefoxitin Allergy Unknown Unknown Verified 05/22/24 00:01 diphenhydramine Allergy Unknown Unknown Verified 05/22/24 00:01 vancomycin Allergy Unknown Unknown Verified 05/22/24 00:01 acetaminophen [From Tylenol] AdvReac Intermediate Fever/see Verified 05/22/24 00:01 notes Sulfa (Sulfonamide AdvReac Intermediate Brain/Head Verified 05/22/24 00:01 Antibiotics) pressure amoxicillin AdvReac Unknown Unknown Verified 05/22/24 00:01 cefuroxime AdvReac Unknown Unknown Verified 05/22/24 00:01 mesalamine AdvReac Unknown Unknown Verified 05/22/24 00:01 paroxetine AdvReac Unknown Unknown Verified 05/22/24 00:01 sertraline AdvReac Unknown Unknown Verified 05/22/24 00:01 Medications Home Medications Medication Instructions Recorded Confirmed Last Taken calcium 600 mg (as 1 tab PO DAILY 10/26/23 05/22/24 05/20/24 carbonate)-vitamin D3 10 mcg (400 unit) tablet (Calcium 600 + D(3)) carboxymethylcellulose sodium 1 % 1 drp ophthalmic (eye) DAILY PRN 10/26/23 05/22/24 03/31/24 22:00 eye gel in a dropperette sjrogens syndrome (TheraTears) clonazepam 1 mg tablet 1 mg PO TID PRN Anxiety/Insomnia 10/26/23 05/22/24 05/21/24 16:00 docusate sodium 100 mg capsule 200 mg PO DAILY 10/26/23 05/22/24 05/20/24 (Colace) levothyroxine 25 mcg tablet 25 mcg PO QAM 10/26/23 05/22/24 05/20/24 naloxone 4 mg/actuation nasal spray 4 mg intranasal UD PRN Other 10/26/23 05/22/24 10/25/23 omeprazole 20 mg capsule,delayed 20 mg PO QAM 10/26/23 05/22/24 05/20/24 release prednisone 1 mg tablet 2 mg PO DAILY 10/26/23 05/22/24 05/20/24 cyanocobalamin (vitamin B-12) 1,000 mcg PO DAILY #30 caps 11/18/23 05/22/24 05/20/24 1,000 mcg capsule oxycodone 5 mg tablet 5 mg PO Q6H PRN pain #10 tabs 04/01/24 05/22/24 05/21/24 12:30 d-mannose 500 mg capsule (AZO 500 mg PO DAILY PRN Flare 04/13/24 05/22/24 Unknown D-Mannose) carboxymethylcellulose 0 drp ophthalmic (eye) HS 05/09/24 05/22/24 05/20/24 sod-hypromell 0.25 %-0.3 % eye liquid gel drops Active Medications Generic Name Dose Route Start Last Admin Trade Name Freq PRN Reason Stop Dose Admin Docusate Sodium 200 mg 05/22/24 09:00 05/22/24 09:14 Docusate Sodium 100 Mg Cap PO 06/21/24 08:59 Not Given DAILY SHAYY Hydromorphone HCl 0.5 mg 05/22/24 03:26 05/22/24 06:40 Hydromorphone Inj 0.5 Mg/0.5 Ml Syr IV 06/05/24 03:25 0.5 mg Q3H PRN Administration Pain (6,7,8,9,10) Levothyroxine Sodium 25 mcg 05/22/24 06:30 05/22/24 06:40 Levothyroxine Sodium 25 Mcg Tablet PO 06/21/24 06:29 25 mcg DAILYBB SHAYY Administration Prednisone 2 mg 05/22/24 09:00 05/22/24 09:14 Prednisone 1 Mg Tab PO 06/21/24 08:59 Not Given DAILY SHAYY Past Medical History Medical History Lung nodules monitors History of recent hospitalization (03/2024) for kidney stones, [facility] tx to ces[facility] for nephrology tube placement. LIP (lymphoid interstitial pneumonitis) not that pt aware of in her hx - verifies admitted [facility] for sepsis jan 2024. ILD (interstitial lung disease) pt not sure , chest xrays show something of cloudy apperance. History of sepsis (01/2024) hospitalized [facility]. Lupus (systemic lupus erythematosus) Sjogren syndrome History of COVID-19 approx [address] History of postoperative nausea and vomiting with post op medication given on empty stomach History of chemotherapy hx complications with chemotherapy/including sepsis. History of anal cancer dx 2017 - multiple sx's and hx chemo. MALT lymphoma dx 2015 - sx right side face and hx radiation. Monitored. Sepsis Hydronephrosis Ureteral calculi kidney stones per pt Nephrolithiasis Raynaud's disease Medullary sponge kidney Panic disorder Hypothyroidism Past Family History Family History Other Family history non-contributory Past Surgical History Surgical History History of surgery x4 related to dx MALT. 1) right side face, parotid gland 2) left side face 3) ganglion cyst 4) wrist and knee History of urologic surgery hx stents x3 (current stent on right side) History of urologic surgery (03/2024) nephrology tube placement History of left cataract surgery History of right cataract surgery History of intestinal surgery multiple: 1) resection/ileostomy 2) ilieostomy reversal 3) anal fissure 4) colostomy 5) colostomy prolpapse repair History of endoscopy History of colonoscopy History of oral surgery multiple/teeth removal. History of laparoscopic cholecystectomy approx 12/2023 or 01/2024 History of lithotripsy multiple H/O breast biopsy H/O dilation and curettage S/P tonsillectomy and adenoidectomy H/O wrist surgery H/O ventral hernia repair (2022) with mesh, left Social History Smoking Status: Former smoker Do You Dip or Chew Tobacco: No Hx Alcohol Use: No Hx Substance Use: No substance use type: does not use Physical Exam Vital Signs Last Vital Signs Temp 36.6 C 05/21/24 21:34 Pulse 75 05/22/24 09:09 Resp 18 05/22/24 09:09 BP 96/51 L 05/22/24 09:09 Pulse Ox 98 05/22/24 09:09 O2 Del Method Room Air 05/22/24 09:09 Testing Laboratory Results 05/22/24 08:27 Urine Color Red 05/21/24 21:44 Urine Appearance Turbid (Clear) A 05/21/24 21:44 Urine pH 7.0 (4.5-7.5) 05/21/24 21:44 Ur Specific [place] > 1.030 (1.000-1.030) H 05/21/24 21:44 Urine Protein 3+ (Negative) H 05/21/24 21:44 Urine Glucose (UA) Negative (Negative) 05/21/24 21: Urine Ketones Negative (Negative) 05/21/24 21:44 Urine Nitrite Negative (Negative) 05/21/24 21:44 Ur Leukocyte Esterase 1+ (Negative) H 05/21/24 21:44 Urine RBC >20 /hpf (0-2) H 05/21/24 21:44 Urine WBC >50 /hpf (0-5) H 05/21/24 21:44 Ur Epithelial Cells 3-5 /hpf (0-2) H 05/21/24 21:44 Blood Type O Positive 05/21/24 22:00 Antibody Screen NEGATIVE 05/21/24 22:00
[2024-05-22 09:29] LABS: Hematocrit (blood only) 20.2 % (37.0-47.0); Hemoglobin 6.4 g/dl (12.0-16.0); Mean Corpuscular Hemoglobin 30.2 pg (25.0-34.0); Mean Corpuscular Hgb Conc 31.7 g/dL (32.0-36.0); Mean Corpuscular Volume 95.3 fL (80.0-100.0); Mean Platelet Volume 10.3 fL (9.4-12.4); Platelet Count 101 K/uL (130-400); RDW Coefficient of Variation 16.8 % (11.5-14.5); RDW Standard Deviation 58.6 fL (36.4-46.3); Red Blood Count 2.12 M/uL (4.20-5.40)
[2024-05-22 09:30] LABS: Basophils # (auto) 0.01 K/uL (0.00-0.20); Basophils % (auto) 0.4 %; Immature Granulocytes # (auto) 0.03 K/uL (0.01-0.20); Immature Granulocytes % (auto) 1.1 %; Lymphocytes % (auto) 21.4 %; Monocytes # (auto) 0.25 K/uL (0.11-0.59); Monocytes % (auto) 8.9 %; Neutrophils # (auto) 1.91 K/uL (1.40-6.50); Neutrophils % (auto) 68.2 %; Polychromasia 1+; Tear Drop Cells 2+
[2024-05-22] MEDS ORDERED: SODIUM CHLORIDE 0.9% 100 ML IV PRN (09:43)
[2024-05-22] MEDS ORDERED: PROPOFOL IV EMULSION 10 MG/ML 20 ML VIAL IV ONE (10:05)
[2024-05-22] MEDS ORDERED: LIDOCAINE 2% 2 ML VIAL/AMP(20MG/ML) INFIL ONE (10:05)
[2024-05-22] MEDS ORDERED: fentaNYL citrate PF 100 MCG/2 ML VIAL ONE (10:08)
[2024-05-22] MEDS ORDERED: ePHEDrine sulfate 50 MG/ML AMP IV PRN (10:23)
[2024-05-22] MEDS ORDERED: ATROPINE SULFATE 0.1 MG/ML 10ML SYR IV PRN (10:23)
--- NOTE | 2024-05-22 10:31 | Hospitalist Progress Note ---
Date of Service May 22, 2024 Assessment & Plan (1) Acute blood loss anemia: Plan: Hemoglobin has dropped to 6.4. 2 units of blood transfusion ordered. Serial labs going forward (2) Hematuria, gross: Plan: Persistent for multiple weeks. She has right ureter stent in place from past history of colorectal cancer. Appreciate urology consultation and recommendations. Cystoscopy evaluation today, May 22 (3) SLE (systemic lupus erythematosus): Plan: Stable. Steroid-dependent. (4) Hypothyroidism: Plan: Stable. Continue current thyroid replacement Plan To be determined by cystoscopy results. If bleeding site is not identified, she probably will need transfer to a tertiary care center. Admission and Anticipated Discharge Date Admission Date: May 22, 2024 Subjective The patient was seen in the ED before she was taken to the OR for cystoscopy. Unfortunately, her hemoglobin has dropped to 6.4 with the continued gross hematuria and blood transfusion has been ordered. Serial labs will be obtained. Urology consultation and recommendations appreciated. Review of Systems 2 Review of Systems: Constitutionalno fever or chills ENTno blurred vision, no double vision, no epistaxis, no sore throat Respiratoryno cough, no wheezing, no shortness of breath Cardiacno palpitations, no chest pain, no syncope Janes nausea, vomiting, diarrhea, melena, hematochezia GUpersistent gross hematuria. No urinary retention, no urinary incontinence, no dysuria Musculoskeletalno joint pain, no muscle tenderness Skinpallor noted. No bruising, no rashes, no pruritus Neurono isolated weakness, no paresthesia, no weakness Psychno depression, no anxiety Physical Exam 2 Physical Exam: General-alert and oriented x3, no fever, no chills HEENT-head atraumatic and normocephalic, pupils equal and reactive to light, extraocular muscles intact Neck-no lymphadenopathy or thyromegaly, trachea midline Chest-clear to auscultation. No rales, wheezing or rhonchi Cardiac-regular rate and rhythm, normal S1 and S2 Abdomen-normal bowel sounds, no hepatosplenomegaly Extremities-no cyanosis, clubbing, or edema Neuro-cranial nerves II through XII intact, motor and sensory function within normal limits, strength symmetrical, no focal deficits Psych-normal affect, normal mood Results & Data Results & Data Vital Signs (Past 12 Hours) Vital Signs Pulse Pulse Resp BP BP Pulse Ox O2 Del Method 05/22/24 09:09 75 18 96/51 L 98 Room Air 05/22/24 07:13 76 05/22/24 06:33 83 19 84/63 L 100 Room Air 05/22/24 06:03 78 20 92/53 L 98 Room Air 05/22/24 05:00 76 12 84/44 L 100 Room Air 05/22/24 04:09 75 12 89/47 L 97 Room Air 05/22/24 03:24 77 12 99/53 L 95 Room Air 05/22/24 03:00 82 20 103/49 L 96 Room Air 05/22/24 03:00 79 16 103/49 L 94 Room Air 05/22/24 02:45 80 05/22/24 02:00 89 14 124/66 100 Room Air 05/22/24 01:00 73 14 106/47 L 97 Room Air 05/22/24 01:00 80 18 106/47 L 97 Room Air 05/22/24 00:00 83 12 126/74 96 Room Air 05/21/24 23:39 84 13 97 Room Air 05/21/24 23:06 83 17 97 Room Air 05/21/24 22:29 89 Laboratory Results 05/22/24 08:27 05/22/24 08:27 PG Care Time/CCT Total # of Minutes Spent Total Time Spent with Patient: Total time spent is greater than 50% in coordination of care (as documented) at patient's floor/unit and/or counseling patient: Coding Level of Care Code 55925 SUB INP/OBS CARE 3/50MIN Diagnoses Acute blood loss anemia D62 Hematuria, gross R31.0 SLE (systemic lupus erythematosus) M32.9 Hypothyroidism E03.9
[2024-05-22] MEDS: cefTRIAXone SODIUM 1,000 MG/50 ML BAG IV SCH (10:56)
--- NOTE | 2024-05-22 10:58 | History & Physical Bridge Note ---
Date of Service May 22, 2024 History & Physical Bridge Note I have examined the patient, reviewed the History & Physical and in the interval since the performance of the History & Physical I have noted the following changes of clinical significance: Patient's morning hemoglobin had dropped significant. 2 units of PRBCs were ordered patient is currently undergoing transfusion of the first. 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 Reviewed extensively risk and benefits of procedure. Discussed potential options. Discussed possible source of bleeding. Discussed possible multiple causes contributing to the significant intermittent hematuria. Will plan to move forward with full evaluation clot evacuation treatment of any bleeding areas within the bladder. Risks and benefits discussed at length for procedure. These include bleeding, infection, injury to surrounding tissues or organs, and risks associated with anesthesia. Patient states understanding and agrees to proceed. Will sign consent and schedule. Plan for cystoscopy with possible clot evacuation possible fulguration and biopsy, possible resection possible possible bilateral retrograde pyelogram. Possible stent exchange versus placement. Bilaterally
[2024-05-22] MEDS: DIATRIZOATE MEGLUMINE 30% 100ML VIAL INSTIL ONE (12:00)
[2024-05-22] MEDS ORDERED: DEXAMETHASONE SOD INJ 4 MG/ML VIAL ONE (12:01)
[2024-05-22] MEDS ORDERED: ONDANSETRON INJ 2 MG/ML 2 ML VIAL ONE (12:01)
--- NOTE | 2024-05-22 12:08 | Operative Report ---
PG Post Operative Report Pre & Post Diagnosis Operation Date: 05/22/24 09:00 Pre-Op Diagnosis: GROSS HEMATURIA Post-Op Diagnosis: GROSS HEMATURIA I identified the patient and participated in the time-out.: Yes Procedure Operation Date: 05/22/24 09:00 Actual Procedures Cystoscopy, Clot evacuation, Meatal Dilation, Bladder stone extraction, Bladder Fulgeration, Fulgeration of bladder neck, Bilateral retrograde pyelograms, right stent exchange, Right aspiration of urine. - Steve Bonilla DO Surgeon Steve Bonilla, II, DO Director [employer] None Estimated Blood Loss 5 Findings Consistent with Post-Op Diagnosis Multiple string-like clots and larger clots in base of bladder. Likely small bladder stones/calcification from right stent. Significant calcification of right distal stent. 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 Three mild ulcerated areas. Mild to moderate small area of bleeding on the left posterior wall. Largest fulgurated ulcer was approx 2.8 cm in size. Bleeding varicosity of the bladder neck. No hydronephrosis or sign of obstruction on left. Mild hydronephrosis of right kidney. Irregular/tortuous proximal right ureter. Mild blood coming around stent on right. Largely clear, yellow urine from right renal pelvis with mild pink tinge. Approx 20 cc aspirated from right renal pelvis. Mild stricture of the distal urethra, dilated. Specimens Urine Right Kidney - Aspiration Stone material base of bladder Drains [address]ter 7 Fr x 26 cm silicone right stent Anesthesia Type General Complications none Disposition Disposition: Recovery Room Indications Patient with persistent hematuria with complicated history and ABLA. S ignificant obstruction of right ureter. Severe stone issues. Radiation cystitis. Risks and benefits discussed at length. Description of Procedure Patient was consented and brought back to the operating room. Patient was placed under anesthesia in the supine position and moved to the dorsal lithotomy position. Patient was prepped and draped in the regular sterile fashion. A time out was completed. A 30degree Cystoscope was placed into the bladder and the entire bladder was examined. The meatus had an area of stricture. This was dilated. Within the bladder a moderate amount of clot was discovered. This was irrigated clear. Within the clot there were small stones and calcified debris. The right stent was noted to have significant calcification of the stent. The UO's were identified as well as the bladder neck, trigone, dome, and the other important landmarks. Three ulcerated areas were appreciated. One had a mild to moderate oozing bleed. There was additional venous bleeding noted from varicosities at the bladder neck and proximal urethra. No severe bleeding was discovered. No significant bleeding was appreciated at the right UO. There was irritation around the right trigone from the calcified distal stent. A 5 fr open ended catheter was placed on the left UO and a retrograde pyelogram was completed. It was placed next to the right stent and a retrograde was completed on the right. The proximal right stent did not appear calcified. The distal end did appear to be calcified. No mild blood clots were attached to the distal stent, possibly involving draining from the stent. The distal opening of the stent was visualized and found to be calcified closed. No hydronephrosis on the left. Mild to moderate on the right. The resection scope was placed and the fine bipolar loop was selected. Any bleeding areas were fulgurated/cauterized and the entire area inspected. The mildly inflammed areas on the posterior wall and the inflammed right trigone were also fulgurated. The bladder neck was fulgurated to control bleeding at the bladder neck and proximal urethra. All bleeding was controlled. The stent was suspicious for being obstructed. At this point, a wire was placed adjacent to the stent and found to be within the renal pelvis. The stent was slowly removed and the proximal coil did appear to open and straighten without issue. The stent was then fully removed and the wire remained. A catheter was placed over the wire and advance to the renal pelvis. Urine was aspirated from the right renal pelvis. It was clear with yellow appearance with very mild pink tinge. No significant blood was noted draining from the right UO after stent removal. A retrograde pyelogram was completed of the renal pelvis. The proximal ureter did look irregular/tortous with some hydroureter. Mild to moderate right hydronephrosis was appreciated. At this point a 7 Fr silicone catheter was placed and confirmed in good position. Clear urine and contrast were appreciated coming down through the stent. Mild string like clot was seen draining from the right ureter. The bladder was inspected a final time. No bleeding areas. All fulgurated areas were clear of bleeding. The area of dilation of the distal urethra had no bleeding or issues. All stone and clot material had been irrigated and extracted. The stones were sent for analysis. The bladder was emptied and irrigated. All specimen and debris had been removed. The scope was removed with the bladder partially full. A catheter was placed and balloon elevated. This was easily irrigated. The patient was cleaned, aroused from anesthesia, and transferred to the pacu in stable condition having tolerated the procedure well with no complications. I was present and participated in all aspects of the procedure. The patient will be monitored in the PACU until transferred. Plan to maintain CBI and monitor. Will keep on low setting to avoid over distension of bladder. Continue with plan to transfuse second unit of blood. I attest to the content of the Intraoperative Record and any orders documented therein. Any exceptions are noted below.
[2024-05-22] MEDS: fentaNYL citrate PF 100 MCG/2 ML VIAL IV PRN (12:20)
--- NOTE | 2024-05-22 12:31 | Anesthesiology Progress Note ---
Date of Service May 22, 2024 Anesthesia Post Procedure Vital Signs Vital Signs: Temp Pulse Pulse Resp BP BP Pulse Ox 05/22/24 09:09 75 18 96/51 L 98 05/22/24 07:13 76 05/22/24 06:33 83 19 84/63 L 100 05/22/24 06:03 78 20 92/53 L 98 05/22/24 05:00 76 12 84/44 L 100 05/22/24 04:09 75 12 89/47 L 97 05/22/24 03:24 77 12 99/53 L 95 05/22/24 03:00 82 20 103/49 L 96 05/22/24 03:00 79 16 103/49 L 94 05/22/24 02:45 80 05/22/24 02:00 89 14 124/66 100 05/22/24 01:00 73 14 106/47 L 97 05/22/24 01:00 80 18 106/47 L 97 05/22/24 00:00 83 12 126/74 96 05/21/24 23:39 84 13 97 05/21/24 23:06 83 17 97 05/21/24 22:29 89 05/21/24 22:27 88 18 116/62 100 05/21/24 21:34 36.6 C 112 H 18 121/60 100 O2 Del Method 05/22/24 09:09 Room Air 05/22/24 07:13 05/22/24 06:33 Room Air 05/22/24 06:03 Room Air 05/22/24 05:00 Room Air 05/22/24 04:09 Room Air 05/22/24 03:24 Room Air 05/22/24 03:00 Room Air 05/22/24 03:00 Room Air 05/22/24 02:45 05/22/24 02:00 Room Air 05/22/24 01:00 Room Air 05/22/24 01:00 Room Air 05/22/24 00:00 Room Air 05/21/24 23:39 Room Air 05/21/24 23:06 Room Air 05/21/24 22:29 05/21/24 22:27 Room Air 05/21/24 21:34 Room Air Pain Intensity Right Abdomen: Pain Intensity: 6 Transfer of Care Handoff Completed per policy Notes Mental Status: alert / awake / arousable Patient Amnestic to Procedure: Yes Nausea / Vomiting: adequately controlled Pain: adequately controlled Airway Patency, RR, SpO2: stable & adequate BP & HR: stable & adequate Hydration State: stable & adequate Anesthetic Complications: no major complications apparent and Pt Satisfied with anesthetic care
[2024-05-22 14:32] LABS: Hematocrit (blood only) 28.1 % (37.0-47.0)
[2024-05-22 19:17] LABS: Hematocrit (blood only) 28.4 % (37.0-47.0)
[2024-05-22] MEDS: HYDROCORTISONE SOD 25 MG in SYRINGE 0 ML IV STA (19:52)
[2024-05-22] MEDS: clonazePAM 1 MG TAB PO PRN (20:57)
[2024-05-23 00:40] LABS: Hematocrit (blood only) 26.4 % (37.0-47.0); Hemoglobin 8.4 g/dl (12.0-16.0)
[2024-05-23] MEDS: hydrOXYzine HCl 25 MG TAB PO STA (05:19)
[2024-05-23 06:19] LABS: Basophils # (auto) 0.01 K/uL (0.00-0.20); Basophils % (auto) 0.2 %; Hematocrit (blood only) 26.6 % (37.0-47.0); Hemoglobin 8.5 g/dl (12.0-16.0); Immature Granulocytes # (auto) 0.03 K/uL (0.01-0.20); Immature Granulocytes % (auto) 0.7 %; Lymphocytes # (auto) 0.59 K/uL (1.20-3.40); Lymphocytes % (auto) 13.4 %; Mean Corpuscular Hemoglobin 30.1 pg (25.0-34.0); Mean Corpuscular Volume 94.3 fL (80.0-100.0); Mean Platelet Volume 9.6 fL (9.4-12.4); Monocytes # (auto) 0.28 K/uL (0.11-0.59); Monocytes % (auto) 6.4 %; Neutrophils # (auto) 3.49 K/uL (1.40-6.50); Neutrophils % (auto) 79.3 %; Platelet Count 112 K/uL (130-400); RDW Coefficient of Variation 16.4 % (11.5-14.5); RDW Standard Deviation 55.9 fL (36.4-46.3); Red Blood Count 2.82 M/uL (4.20-5.40)
[2024-05-23 06:32] LABS: Calcium 8.4 mg/dl (8.6-10.3); Creatinine Clr Calc Pharmacy 70.1 ml/min; Potassium 3.8 mmol/L (3.5-5.1)
--- NOTE | 2024-05-23 09:47 | Urology Progress Note ---
Date of Service May 23, 2024 Assessment & Plan (1) Hematuria, gross: (2) Acute blood loss anemia: (3) Ureteral stent present: (4) Current chronic use of systemic steroids: (5) Hydroureteronephrosis: (6) LIP (lymphoid interstitial pneumonitis): (7) ILD (interstitial lung disease): (8) Multiple idiopathic pulmonary cysts: (9) Colostomy status: (10) Pancytopenia: (11) History of chemotherapy: (12) History of anal cancer: (13) MALT lymphoma: (14) Medullary sponge kidney: Plan Postop day 1 status post clot evacuation, urethral dilation, stent exchange on right aspiration of urine from bladder ulcerations. Patient has extremely complicated history of pelvic surgery from anal cancer with chemotherapy and radiation. Has a long complicated history of stone disease. Has history of lupus and chronic steroid use. Numerous complicating factors including significant stricture disease and external compression of the ureters with the right ureter much more affected. Patient has been dealing with symptomatic hematuria with anemia. Has undergone multiple transfer. Has undergone multiple stent exchanges. Has issues with significant calcification of indwelling stents. Had nephrostomy tube cath 1 point on the right side which was poorly tolerated secondary to pain discomfort. Patient had symptomatic decrease in hemoglobin and underwent transfusion yesterday. Had undergone procedure with clot evacuation. Small amount of clot with stone debris was appreciated within the bladder. Had significant calcification of the right indwelling stent. Had small area of stricture of the urethra. Had significant inflammation of the bladder neck had multiple areas of inflammation with radiation cystitis throughout the bladder and 3 areas of ulceration with 1 area having a slow venous appearing bleed. Had venous bleeding from the varicosities of the bladder neck. Had undergone stent exchange on the right with retrograde pyelogram. Residual hydronephrosis and hydroureter were appreciated with tortuosity of the proximal ureter. No signs of extravasation on the retrograde pyelogram. Aspiration from the renal pelvis showed largely clear yellow urine with a small amount of light pink on aspiration. This was sent for analysis. Plan to maintain catheter with CBI. Will monitor output. On very slow CBI cycle right now. Can plan to continue to be titrated down to off Nioxn. May be able to attempt catheter removal if patient continues to improve. If patient continues to have symptomatic acute blood loss anemia may need to consider further evaluation of bowel or other area for possible source of bleed. No severe or major bleeding was appreciated within the bladder but did have multiple areas of small slow likely capillary or venous bleeding. Patient has referral to tertiary center for reconstruction evaluation. Has atrophic right kidney and may need to determine full functionality before finalizing plans. Also due to patient's extensive pelvic surgery and radiation discussed with patient today possible risks of the contralateral kidney developing issues especially if nephrectomy is considered for the right kidney. Will plan to continue to monitor. Will have supportive care. Will continue to monitor hemoglobin and blood work. Extensive conversation once again today. Will plan to follow-up Admission and Anticipated Discharge Date Admission Date: May 22, 2024 Subjective Postop from clot evacuation and fulguration of bladder ulcers/bleeding with large bleeding varicosities of the bladder neck ulceration and radiation cystitis within the bladder with area of bleeding ulcer, severe inflammation around the right trigone with calcification and near complete obstruction of the indwelling stent on the right. Patient had undergone stent exchange for obstruction issues. Patient has been tolerating well. Has noticed some frequency and urgency. Had catheter placed secondary to multiple areas of radiation cystitis and inflammation as well as meatal narrowing which was dilated. Is on a very low drip of CBI. Patient's been dealing with symptomatic anemia and significant drops. No severe areas of bleeding were noted on the scope but multiple areas of slow venous bleeding was appreciated. Had undergone transfusion yesterday secondary to significant drop in hemoglobin. Has not had severe pain in the back and flank. Does have occasional burning and irritation. No severe episodes or major changes. No new nausea or vomiting. Had tolerated anesthesia without major problems Review of Systems Review of Systems: All systems reviewed & are unremarkable except as noted in HPI & below Physical Exam Physical Exam: General: Alert in no acute distress. HEENT: Normocephalic Atraumatic. Inspection normal. Cranial Nerves 2-12 Grossly intact. Normal inspection of face. Normal inspection of neck. Psychologic: Normal affect. Respiratory: Nonlabored. No use of accessory muscles. No tachypnea or dyspnea. Cardiovascular: No tachycardia Skin: Rodney and Dry. No rashes or visible lesions. Extremities/Lymphatics: No edema Abdomen: Soft Non-distended. No rebound or guarding. : Wheeler catheter in place on slow CBI. Urine clear with no clots or debris Results & Data Vital Signs (Past 12 Hours) Vital Signs Temp Pulse Pulse Pulse Resp BP Pulse Ox 05/23/24 08:01 36.3 C L 68 16 87/44 L 99 05/23/24 07:50 70 05/23/24 03:00 36.3 C L 81 16 99/62 L 98 05/23/24 00:34 36.8 C 87 16 89/55 L 98 05/22/24 21:44 80 O2 Del Method 05/23/24 08:01 Room Air 05/23/24 07:50 05/23/24 03:00 Room Air 05/23/24 00:34 Room Air 05/22/24 21:44 PG Care Time/CCT Total # of Minutes Spent Total Time Spent with Patient: Total time spent is greater than 50% in coordination of care (as documented) at patient's floor/unit and/or counseling patient: Coding Level of Care Code 47544 SUB INP/OBS CARE 3/50MIN Diagnoses Hematuria, gross R31.0 Acute blood loss anemia D62 Ureteral stent present Z96.0 Current chronic use of systemic steroids Z79.52 Hydroureteronephrosis N13.30 LIP (lymphoid interstitial pneumonitis) J84.2 ILD (interstitial lung disease) J84.9 Multiple idiopathic pulmonary cysts J98.4 Colostomy status Z93.3 Pancytopenia D61.818 History of chemotherapy Z92.21 History of anal cancer Z85.048 MALT lymphoma C88.40 Medullary sponge kidney Q61.5
--- NOTE | 2024-05-23 10:48 | Hospitalist Progress Note ---
Date of Service May 23, 2024 Assessment & Plan (1) Acute blood loss anemia: Plan: Hemoglobin 6.4 yesterday, May 22 and she received 2 units packed red blood cells. Hemoglobin has stabilized between 8 and 9. Will follow (2) Hematuria, gross: Plan: Persistent for multiple weeks prior to this admission. She has right ureter stent in place from past history of colorectal cancer. Appreciate urology consultation and recommendations. Cystoscopy evaluation and treatment was completed on May 22. She is now receiving continuous bladder irrigation. No evidence of gross hematuria at this time. (3) SLE (systemic lupus erythematosus): Plan: Stable. Steroid-dependent. (4) Hypothyroidism: Plan: Stable. Continue current thyroid replacement Plan Hopeful discharge to home tomorrow, May 24, if no recurrence of hematuria. Admission and Anticipated Discharge Date Admission Date: May 22, 2024 Subjective Alert and oriented. No distress. Urine is now clear with CBI. Urology consultation appreciated. She underwent cystoscopy yesterday, May 22. She received 2 units packed red blood cells for hemoglobin of 6.4 yesterday, May 23, and hemoglobin is stable in the 8-9 range. Mildly low potassium has been corrected. She remains on intravenous Rocephin. Urine culture is growing 3 different organisms and likely colonization. Platelet count is slightly low as is the white blood cell count. She is steroid-dependent with SLE. Hopefully she can go home soon when cleared by urology. Review of Systems 2 Review of Systems: Constitutionalno fever or chills ENTno blurred vision, no double vision, no epistaxis, no sore throat Respiratoryno cough, no wheezing, no shortness of breath Cardiacno palpitations, no chest pain, no syncope Janes nausea, vomiting, diarrhea, melena, hematochezia GUgross hematuria has resolved. She is receiving continuous bladder irrigation. Musculoskeletalno joint pain, no muscle tenderness Skinpallor noted. No bruising, no rashes, no pruritus Neurono isolated weakness, no paresthesia, no weakness Psychno depression, no anxiety Physical Exam 2 Physical Exam: General-alert and oriented x3, no fever, no chills HEENT-head atraumatic and normocephalic, pupils equal and reactive to light, extraocular muscles intact Neck-no lymphadenopathy or thyromegaly, trachea midline Chest-clear to auscultation. No rales, wheezing or rhonchi Cardiac-regular rate and rhythm, normal S1 and S2 Abdomen-normal bowel sounds, no hepatosplenomegaly Extremities-no cyanosis, clubbing, or edema Neuro-cranial nerves II through XII intact, motor and sensory function within normal limits, strength symmetrical, no focal deficits Psych-normal affect, normal mood Results & Data Results & Data Vital Signs (Past 12 Hours) Vital Signs Temp Pulse Pulse Pulse Resp BP Pulse Ox 05/23/24 08:01 36.3 C L 68 16 87/44 L 99 05/23/24 07:50 70 05/23/24 03:00 36.3 C L 81 16 99/62 L 98 05/23/24 00:34 36.8 C 87 16 89/55 L 98 O2 Del Method 05/23/24 08:01 Room Air 05/23/24 07:50 05/23/24 03:00 Room Air 05/23/24 00:34 Room Air Laboratory Results 05/23/24 05:12 05/23/24 05:12 PG Care Time/CCT Total # of Minutes Spent Total Time Spent with Patient: Total time spent is greater than 50% in coordination of care (as documented) at patient's floor/unit and/or counseling patient: Coding Level of Care Code 60846 SUB INP/OBS CARE 2/35MIN Diagnoses Acute blood loss anemia D62 Hematuria, gross R31.0 SLE (systemic lupus erythematosus) M32.9 Hypothyroidism E03.9
[2024-05-23 16:32] LABS: Hematocrit (blood only) 25.5 % (37.0-47.0); Hemoglobin 8.4 g/dl (12.0-16.0)
[2024-05-23] MEDS: LORATADINE 10 MG TAB PO ONE (19:37)
[2024-05-24] MEDS: HYDROmorphone INJ 0.5 MG/0.5 ML SYR IV PRN (04:14)
[2024-05-24 06:18] LABS: Basophils # (auto) 0.01 K/uL (0.00-0.20); Basophils % (auto) 0.2 %; Hematocrit (blood only) 25.6 % (37.0-47.0); Hemoglobin 8.2 g/dl (12.0-16.0); Immature Granulocytes # (auto) 0.02 K/uL (0.01-0.20); Immature Granulocytes % (auto) 0.5 %; Lymphocytes # (auto) 0.56 K/uL (1.20-3.40); Lymphocytes % (auto) 13.4 %; Mean Corpuscular Hemoglobin 30.3 pg (25.0-34.0); Mean Corpuscular Volume 94.5 fL (80.0-100.0); Mean Platelet Volume 10.1 fL (9.4-12.4); Monocytes # (auto) 0.29 K/uL (0.11-0.59); Monocytes % (auto) 6.9 %; Platelet Count 110 K/uL (130-400); RDW Coefficient of Variation 16.2 % (11.5-14.5); RDW Standard Deviation 55.8 fL (36.4-46.3); Red Blood Count 2.71 M/uL (4.20-5.40); White Blood Count 4.18 K/ul (4.8-10.8)
[2024-05-24 06:47] LABS: BUN Creatinine Ratio 25.3 (10-20); Creatinine Clr Calc Pharmacy 74.8 ml/min; Potassium 3.6 mmol/L (3.5-5.1)
--- NOTE | 2024-05-24 11:11 | Urology Progress Note ---
Date of Service May 24, 2024 Assessment & Plan (1) Hematuria, gross: (2) Acute blood loss anemia: (3) Ureteral stent present: Plan: Patient POD #2 s/p cystoscopy, clot evacuation, meatal dilation, bladder stone extraction, bladder fulguration, fulguration of bladder neck, bilateral retrograde pyelograms, right stent exchange, right aspiration of urine Afebrile, SBPs in the 90s Labs reviewedcreatinine 0.75, WBC 4.18, hemoglobin 8.2 Urine culture with more than 3 types of organisms present, all moderate counts mixed probable skin ramón She has remained on empiric ceftriaxone while on CBI Wheeler draining clear yellow urine with CBI on slow CBI clamped during exam Plan for void trial today if urine remains clear Can be discharged from perspective after voiding and medically stable Continue supportive care and medical management per hospital medicine Referral to reconstructive urology at [facility] is being coordinated Plan to follow-up outpatient with urology as scheduled Admission and Anticipated Discharge Date Admission Date: May 22, 2024 Subjective Patient seen and examined at bedside this morning. She is awake and sitting up in bed. Wheeler intact, urine clear with CBI on slow. CBI clamped. She reports some right flank pain. No fever or chills. Review of Systems Constitutional: as per Subjective / HPI Genitourinary: as per Subjective / HPI Physical Exam Constitutional: well developed and well nourished; no acute distress Respiratory: normal respiratory effort; no respiratory distress and no labored breathing Gastrointestinal (Abdomen): Inspection/Auscultation: abdomen normal to inspection Musculoskeletal: Head/Neck/Chest: normocephalic Neurologic: moves all extremities and awake Psychiatric: Orientation: alert and oriented x 3 Genitourinary: Wheeler patent draining clear urine with CBI on slow, CBI clamped during exam Results & Data Vital Signs (Past 12 Hours) Vital Signs Temp Pulse Pulse Pulse Resp BP BP 05/24/24 07:24 36.7 C 90 17 91/54 L 05/24/24 07:06 89 05/24/24 04:00 36.8 C 88 18 99/56 L 05/23/24 23:22 36.8 C 86 18 118/64 Pulse Ox O2 Del Method 05/24/24 07:24 96 Room Air 05/24/24 07:06 05/24/24 04:00 96 Room Air 05/23/24 23:22 97 Room Air PG Care Time/CCT Total # of Minutes Spent Total Time Spent with Patient: Total time spent is greater than 50% in coordination of care (as documented) at patient's floor/unit and/or counseling patient: Coding Level of Care Code 15323 SUB INP/OBS CARE 03/27MIN Diagnoses Hematuria, gross R31.0 Acute blood loss anemia D62 Ureteral stent present Z96.0
--- NOTE | 2024-05-24 15:41 | Hospitalist Progress Note ---
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 Patient reports progression of fatigue, lightheadedness and dizziness. No infectious symptoms such as fever, chills, rigors. #Hematuria/Acute blood loss anemia s/p 2 Units PRBCs on admission. CBC w/ hgb 8.2 in AM, recheck 10. BMP w/ stable renal function & electrolytes s/p cystoscopy 05/22 Urology recommended void trial 05/24. Patient will need to be referred to reconstructive urology at [facility] upon discharge. Follow up w/ urology outpatient. Continue IV Rocephin #SLE stable prednisone 2mg PO daily #hypothyroidism stable synthroid daily #panic disorder Clonazepam 0.5mg TID DVT prophylaxis: held in setting of gross hematuria Code: full Anticipate discharge home 05/24. Admission and Anticipated Discharge Date Admission Date: May 22, 2024 Subjective Patient seen and examined this morning. Patient reports that her hematuria has r esolved. She was feeling okay today. Prior to my exam, the continuous bladder irrigation had been stopped and they were doing a trial to see if hematuria returned or not. Patient did report prior to the hospital stay she had been experiencing ongoing hematuria and passing clots for about a month. Physical Exam Constitutional: WD/WN, vitals as above Eyes: PERRL, conjunctivae normal, anicteric sclerae Respiratory: breathing unlabored Cardiovascular: well perfused Psychiatric: A+Ox3, euthymic affect Genitourinary: clear yellow urine in norman bag Results & Data Results & Data Vital Signs (Past 12 Hours) Vital Signs Temp Pulse Pulse Pulse Resp BP BP 05/24/24 15:19 36.8 C 92 H 20 104/68 05/24/24 15:00 92 H 05/24/24 11:50 36.6 C 88 17 95/60 L 05/24/24 11:14 36.6 C 87 17 90/58 L 05/24/24 07:24 36.7 C 90 17 91/54 L 05/24/24 07:06 89 05/24/24 04:00 36.8 C 88 18 99/56 L Pulse Ox O2 Del Method 05/24/24 15:19 99 Room Air 05/24/24 15:00 05/24/24 11:50 96 Room Air 05/24/24 11:14 96 Room Air 05/24/24 07:24 96 Room Air 05/24/24 07:06 05/24/24 04:00 96 Room Air PG Care Time/CCT Total # of Minutes Spent Total Time Spent with Patient: Total time spent is greater than 50% in coordination of care (as documented) at patient's floor/unit and/or counseling patient: Coding Level of Care Code 26997 SUB INP/OBS CARE 2/35MIN Diagnoses Hematuria, gross R31.0 SLE (systemic lupus erythematosus) M32.9 Hypothyroidism E03.9
--- NOTE | 2024-05-24 15:45 | Fluoroscopy Report ---
FL retrograde includes kub CLINICAL HISTORY: CYSTO COMPARISON STUDY: None FLUOROSCOPY TIME: 94 seconds FLUOROSCOPY IMAGES: 11 EXPOSURE DOSE: 13.7 mGy FINDINGS: Fluoroscopy was provided for urologic procedure. IMPRESSION: Intraoperative fluoroscopy. ACT 112: Negative or not required by law. Electronically signed by: Willem Parrish M.D. 05/24/2024 3:43 PM
[2024-05-24] MEDS: HYDROCORTISONE 2.5% CR 30 GM TUBE EXT PRN (18:06)
[2024-05-25 07:01] LABS: Basophils # (auto) 0.02 K/uL (0.00-0.20); Basophils % (auto) 0.4 %; Hematocrit (blood only) 29.4 % (37.0-47.0); Hemoglobin 9.3 g/dl (12.0-16.0); Immature Granulocytes # (auto) 0.02 K/uL (0.01-0.20); Immature Granulocytes % (auto) 0.4 %; Mean Corpuscular Hemoglobin 30.1 pg (25.0-34.0); Mean Corpuscular Hgb Conc 31.6 g/dL (32.0-36.0); Mean Corpuscular Volume 95.1 fL (80.0-100.0); Monocytes # (auto) 0.35 K/uL (0.11-0.59); Monocytes % (auto) 7.4 %; Neutrophils # (auto) 3.44 K/uL (1.40-6.50); Neutrophils % (auto) 72.8 %; Platelet Count 132 K/uL (130-400); RDW Coefficient of Variation 15.9 % (11.5-14.5); RDW Standard Deviation 54.6 fL (36.4-46.3); Red Blood Count 3.09 M/uL (4.20-5.40); White Blood Count 4.73 K/ul (4.8-10.8)
[2024-05-25 07:19] LABS: BUN Creatinine Ratio 24.7 (10-20); Calcium 8.7 mg/dl (8.6-10.3); Creatinine Clr Calc Pharmacy 59.6 ml/min; Potassium 3.8 mmol/L (3.5-5.1)
--- NOTE | 2024-05-25 14:21 | Discharge Summary ---
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 She presented with concern for progression of fatigue, lightheadedness and dizziness. #Hematuria/Acute blood loss anemia Received 1 unit pRBC on 05/22 - hgb augmented appropriately and remained stable S/p cystoscopy, clot evacuation, meatal dilation, bladder stone extraction, bladder fulguration, fulguration of bladder neck, bilateral retrograde pyelo grams, right stent exchange, right aspiration of urine on 05/22 Had CBI after procedure and treated empirically with ceftriaxone during CBI Hematuria has resolved since CBI and Wheeler catheter removed passed voiding trial Follow-up with urology outpatient as scheduled and continue the referral process to urological reconstructive surgery at [facility] #SLE Chronic, stable Continue prednisone 2mg PO daily #Hypothyroidism Chronic, stable Continue Synthroid daily #Panic disorder Continue Clonazepam 0.5mg TID #Colostomy status H/o rectal carcinoma Daily colostomy care DVT prophylaxis: held in setting of gross hematuria Code: full Dispo: Discharged home 05/25 Notes For Next Care Provider Continue referral process to [facility] urological reconstructive surgery Medication Changes From Visit None Admission HPI Per Admitting Provider Gilma Lantigua is a 63-year-old female presenting with hematuria ongoing for at least the last month. Patient with history of colorectal cancer status post radiation resulting in radiation cystitis. History of bilateral nephrolithiasis with right ureteral stricture status post stent in place (last exchanged 04/01/2024). patient reports she has had ongoing hematuria for the last 30 days. She reports passing bright red blood with clots. She has occasional throbbing and pain in her bladder area as well as occasional bilateral flank pain. No reported fever or chills. Patient does report severe fatigue as well as dizziness and lightheadedness with near syncopal events. She presents with concern for ongoing blood loss and symptomatic anemia In the ER she is afebrile, hemodynamically stable ER course: Macrobid 100 mg p.o. Normal saline 500 mL Dilaudid 0.25 mg IV x 2 doses Zofran 4 mg IV Home medications prednisone and Colace ordered Discharge Exam General-alert and oriented x3, no fever, no chills HEENT-head atraumatic and normocephalic, pupils equal and reactive to light, extraocular muscles intact Neck-no lymphadenopathy or thyromegaly, trachea midline Chest-clear to auscultation. No rales, wheezing or rhonchi Cardiac-regular rate and rhythm, normal S1 and S2 Abdomen-normal bowel sounds, no hepatosplenomegaly Extremities-no cyanosis, clubbing, or edema Neuro-cranial nerves II through XII intact, motor and sensory function within normal limits, strength symmetrical, no focal deficits Psych-normal affect, normal mood Discharge Plan Discharge Items Patient Disposition: Home - Self-Care Reason For Visit: HEMATURIA Discharge Diagnosis: Hematuria, acute blood loss anemia Condition on Discharge: Good Activity: Resume your previous activity Non-emergency contact: Primary Care Provider and Urologist Call non-emergency contact if: you have any medication questions and your symptoms worsen Follow-up/Referrals: Steve Bonilla DO [Physician] - 08/11/24 9:00 am (Follow-up as scheduled) Caitie Aden DO [Primary Care Provider] - (Follow-up in 1-2 weeks) Diet: Regular Addtl Attending Provider Instructions: Mrs. Lantigua, Facundo were recently hospitalized for experiencing blood in your urine for a prolonged amount of time. You underwent a cystoscopy and right stent exchange on 05/22/[address] Betancourt. Your hematuria has since resolved and your hemoglobin level has remained stable. Please see recommendations below regarding your discharge. Please follow up with urology outpatient. They are also working on getting a referral placed for you to see reconstructive urology at [facility]. Please follow up with your family doctor in 1-2 weeks. You may resume the remainder of your outpatient medications on discharge. If you develop any worsening blood in urine, inability to urinate, fever, chills please report back to the ED for further care. While you have a ureteral stent in place: Some discomfort is normal. Certain movements may trigger pain or a feeling that you need to urinate. You may also feel mild soreness or pressure before or during urination. These symptoms should go away a few days after the stent is removed. Your urine may be slightly pink or red. This is due to bleeding caused by minor irritation from the stent. This may happen on and off while you have the stent, it is not harmful and is to be expected. Medication to help minimize discomfort or bladder spasms, or to prevent infection may be prescribed. Take this as directed. Drink plenty of fluids to help flush out your urinary tract. If you go home with a catheter, wash with soapy water and a fresh washcloth twice daily. We recommend mild bar soap such as Dial or Dove. When to call [facility] Urology at [phone]: Your urine contains heavy blood clots You are constantly leaking urine Fever of 101F or higher, chills, nausea, or vomiting Your pain is not relieved with medication The end of the stent comes out of your urethra Pending Studies at Discharge: No Stand-Alone Forms: My [facility] IdeaOffer, Smoking Cessation Medications and DC Order Prescriptions: Continued AZO D-Mannose 500 mg capsule 500 mg PO DAILY PRN (Reason: Flare) clonazepam 1 mg tablet 1 mg PO TID PRN (Reason: Anxiety/Insomnia) levothyroxine 25 mcg tablet 25 mcg PO QAM prednisone 1 mg tablet 2 mg PO DAILY Hold Instructions: Resume on 01/28/24. docusate sodium [Colace] 100 mg Capsule 200 mg PO DAILY omeprazole 20 mg capsule,delayed release(DR/EC) 20 mg PO QAM calcium carbonate-vitamin D3 [Calcium 600 + D(3)] 600 mg-10 mcg (400 unit) Tablet 1 tab PO DAILY Patient Comments: sometimes naloxone 4 mg/actuation spray,non-aerosol 4 mg INTRANASAL UD PRN (Reason: Other) Patient Comments: never used Rx Instructions: [place] 1 spray into one nostril as directed for overdose, respiratory supression/slow infrequent breathing. Repeat in 3 minutes in the other nostril if no response. Call 911. carboxymethylcellulose sodium [TheraTears] 1 % Dropperette,Gel 1 drp OPHTHALMIC (EYE) DAILY PRN (Reason: sjrogens syndrome ) cyanocobalamin (vitamin B-12) 1,000 mcg capsule 1,000 mcg PO DAILY Qty: 30 0RF oxycodone 5 mg tablet 5 mg PO Q6H PRN (Reason: pain) Qty: 10 0RF carboxymethylcell-hypromellose 0.25-0.3 % Drops, Liquid Gel 0 drp OPHTHALMIC (EYE) HS Rx Instructions: Per patient she brought her own in with her and would like to use them. Original Directions: 1 drop at bedtime in both eyes. Discharge Orders: Discharge Order (Routine); Ordered 05/25/24 Ordered By: Lydia Guerrero/Other Patient Handouts: Having a Ureteral Stent Admission Data Admit Date/Time: 05/22/24 09:43 Attending Provider: Montrell Washington Admit Provider: China Yanez Primary Care Provider: Caitie Aden Other Providers: Steve Bonilla; China Yanez Other Interventions: Discharge Summary Assessment (RN) Last Done: 05/25/24 11:05 Hospital Stay Data Consultations 05/22/24 02:23 ED Decision to Admit Stat 05/22/24 08:24 Consult Urology Routine Procedures Performed Operation Date: 05/22/24 09:00 Actual Procedures p Cystoscopy, Clot evacuation, Bladder stone extraction, Bladder Fulgeration, Fulgeration of bladder neck, Bilateral retrograde pyelograms, right stent exchange(Not Applicable) - Steve Bonilla DO Diagnostic Imagining Performed Abdomen/Pelvis CT 05/21/24 21:55 Exam(s): CT ABDOMEN + PELVIS With Contrast IV Amt: 93ml optiray 320 EXAM: CT Abdomen and Pelvis With Intravenous Contrast CLINICAL HISTORY: Reason for exam: hematuria, large clots. TECHNIQUE: Axial computed tomography images of the abdomen and pelvis with intravenous contrast. CTDI is 9.77 mGy and DLP is 474.68 mGy-cm. Automated exposure control was utilized for the study. A dose lowering technique was utilized adhering to the principles of ALARA. CONTRAST: Patient received 93ml optiray 320 of IV contrast COMPARISON: CT abdomen and pelvis: 05/12/2024 FINDINGS: Lung bases: There is a stable partially visualized 1.7 cm left lower lobe nodule noted along the posterior left pericardial border. Previous measurements: 1.7 cm. Follow-up indicated CT chest and follow-up PET CT should be considered. No consolidation. ABDOMEN: Liver: Unremarkable. No mass. Gallbladder and bile ducts: The gallbladder has been removed. No ductal dilation. Pancreas: Unremarkable. No mass. No ductal dilation. Spleen: Unremarkable. No splenomegaly. Adrenals: Unremarkable. No mass. Kidneys and ureters: No solid renal mass or hydronephrosis is noted. There are small simple left renal cyst and scattered retained bilateral renal calculi. Stomach and bowel: There is a left lower quadrant ostomy. The excluded rectosigmoid colon is unremarkable. No obstruction. No mucosal thickening. PELVIS: Appendix: No findings to suggest acute appendicitis. Bladder: Unremarkable. No mass. Reproductive: Unremarkable as visualized. ABDOMEN and PELVIS: Intraperitoneal space: Unremarkable. No free air. No significant fluid collection. Bones/joints: No acute fracture. No dislocation. Soft tissues: There are postsurgical changes and mesh in the anterior abdominal wall consistent with prior hernia repair. Vasculature: Unremarkable. No abdominal aortic aneurysm. Lymph nodes: Unremarkable. No enlarged lymph nodes. Tubes, lines and devices: There is stable appropriate positioning of the double-J right ureteral stent. There is mild to moderate right renal atrophy and renal cortical scarring. There is persistent moderate urothelial thickening noted in the renal pelvis and proximal ureter. IMPRESSION: 1. There is a stable partially visualized 1.7 cm left lower lobe pulmonary nodule noted along the posterior left pericardial border. Previous measurements: 1.7 cm. Follow-up indicated CT chest and follow-up PET CT should be considered. 2. There is stable appropriate positioning of the double-J right ureteral stent. There is mild to moderate right renal atrophy and renal cortical scarring. There is persistent moderate urothelial thickening noted in the renal pelvis and proximal ureter. 3. Bilateral nephrolithiasis. Electronically signed by: Misbah Ibrahim MD 05/22/24 00:04 AM Chest X-Ray 05/21/24 23:34 EXAM: XR chest 1V portable CLINICAL HISTORY: SOB. TECHNIQUE: An X-ray image of the chest is obtained in AP projection. COMPARISON: X-ray 05/09/24. FINDINGS: Pulmonary Parenchyma: Lungs are emphysematous. No evidence of consolidation, collapse, or focal opacities. No pulmonary nodules are identified. Bilateral apical pleural thickening. No evidence of pleural effusion. Heart and Mediastinum: Heart size and shape are normal. No mediastinal widening or masses. No hilar or mediastinal lymphadenopathy. Bony Thorax: The bony thorax appears intact without fractures or deformities. Soft Tissues: Soft tissues overlying the chest wall are unremarkable. IMPRESSION: 1. No significant changes. 2. Emphysematous lungs. 3. Bilateral apical pleural thickening. 4. No acute cardiopulmonary abnormalities are identified. Electronically signed by John James 05-22-2024 01:55 AM Retrograde Pyelogram 05/22/24 12:00 FL retrograde includes kub CLINICAL HISTORY: CYSTO COMPARISON STUDY: None FLUOROSCOPY TIME: 94 seconds FLUOROSCOPY IMAGES: 11 EXPOSURE DOSE: 13.7 mGy FINDINGS: Fluoroscopy was provided for urologic procedure. IMPRESSION: Intraoperative fluoroscopy. ACT 112: Negative or not required by law. Electronically signed by: Willem Parrish M.D. 05/24/2024 3:43 PM Pending Results Patient Have Any Pending Studies at Discharge: No Discharge Instructions Given to Patient (Per Discharging Provider) Mrs. Lantigua, Facundo were recently hospitalized for experiencing blood in your urine for a prolonged amount of time. You underwent a cystoscopy and right stent exchange on 05/22/[address] Betancourt. Your hematuria has since resolved and your hemoglobin level has remained stable. Please see recommendations below regarding your discharge. Please follow up with urology outpatient. They are also working on getting a referral placed for you to see reconstructive urology at [facility]. Please follow up with your family doctor in 1-2 weeks. You may resume the remainder of your outpatient medications on discharge. If you develop any worsening blood in urine, inability to urinate, fever, chills please report back to the ED for further care. While you have a ureteral stent in place: Some discomfort is normal. Certain movements may trigger pain or a feeling that you need to urinate. You may also feel mild soreness or pressure before or during urination. These symptoms should go away a few days after the stent is removed. Your urine may be slightly pink or red. This is due to bleeding caused by minor irritation from the stent. This may happen on and off while you have the stent, it is not harmful and is to be expected. Medication to help minimize discomfort or bladder spasms, or to prevent infection may be prescribed. Take this as directed. Drink plenty of fluids to help flush out your urinary tract. If you go home with a catheter, wash with soapy water and a fresh washcloth twice daily. We recommend mild bar soap such as Dial or Dove. When to call [facility] Urology at [phone]: Your urine contains heavy blood clots You are constantly leaking urine Fever of 101F or higher, chills, nausea, or vomiting Your pain is not relieved with medication The end of the stent comes out of your urethra Total Time Total Time Spent Total Time Spent (In Minutes): Greater than 30 minutes spent completing this discharge process including direct patient care, medication reconciliation, documentation, review of labs and images, and coordination of care. Coding Level of Care Code 27252 INP/OBS DISCH >30 MIN Diagnoses Hematuria, gross R31.0 Acute blood loss anemia D62 SLE (systemic lupus erythematosus) M32.9 Hypothyroidism E03.9
[2024-05-25 15:45] VITALS: BP 96/64; PULSE 79; RESP 18; TEMP 98.6
[2024-05-25] MEDS: ACETAMINOPHEN 325 MG TAB PO PRN (16:01)
[2024-05-25 17:17] VITALS: O2SAT 95
== END 2024-05-25 17:19 | disposition home or self-care (01) | DRG 669 ==
LOC: EDINP 21:27 → ED 21:27 → SUATTDRO 05-22 02:36 → EDINP 05-22 03:26 → SUATTDRO 05-22 09:43 → 2N 05-22 13:25
DX: M32.9 Systemic lupus erythematosus, unspecified; Z93.3 Colostomy status; F41.0 Panic disorder [episodic paroxysmal anxiety]; E03.9 Hypothyroidism, unspecified; Z88.1 Allergy status to other antibiotic agents; N32.89 Other specified disorders of bladder; Z79.890 Hormone replacement therapy; Z96.0 Presence of urogenital implants; N13.30 Unspecified hydronephrosis; Q61.5 Medullary cystic kidney; Z85.72 Personal history of non-Hodgkin lymphomas; Z79.52 Long term (current) use of systemic steroids; Z88.0 Allergy status to penicillin; Z79.899 Other long term (current) drug therapy; Z92.21 Personal history of antineoplastic chemotherapy; J98.4 Other disorders of lung; Z88.6 Allergy status to analgesic agent; Z92.3 Personal history of irradiation; I86.2 Pelvic varices; J84.2 Lymphoid interstitial pneumonia; D61.818 Other pancytopenia; N21.0 Calculus in bladder; Z85.048 Personal history of other malignant neoplasm of rectum, rectosigmoid junction, and anus; D62 Acute posthemorrhagic anemia; Z88.8 Allergy status to other drugs, medicaments and biological substances; Z88.2 Allergy status to sulfonamides